=== PATIENT | male | born 1955 | race Caucasian/White ===

== ENCOUNTER 2016-07-27 14:16 | Inpatient (IN) | payer BC, OTHER ==
[~2016-07-27] VITALS: Ht 175.3 cm; Wt 69.7 kg
[2016-07-27] VITALS (7 sets, daily range): BP systolic 90–117; BP diastolic 66–77; PULSE 77–96; RESP 16–18; TEMP 97.9–98.3; O2SAT 96–100
[~2016-07-27 14:16] MED LIST: ALPR0.5T3 PO; AMLO5TAB2 PO; AMOX875T2 PO; CHLO10CA2 PO; CHLO5CAP3 PO; LISI-515 PO; OMEP20TA PO; ULTR50TA5 PO
[2016-07-27] MEDS ORDERED: SODIUM CHLOR 0.9% 1000 ML INJ 1,000 ML IV SCH (14:53)
--- NOTE | 2016-07-27 14:58 | PD ---
HPI Chief Complaint: Abdominal Pain Time Seen by Provider: 14:44 Travel History International Travel<30 days: No Contact w/Intl Traveler<30days: No Traveled to known affect area: No History of Present Illness HPI 61-year-old male complains of abdominal pain with nausea vomiting and diarrhea. Patient states that the symptoms started 5 days ago. Patient states the pain in cramping pain and sharp pain mostly on the left low quadrant of the abdomen with radiation to the mid abdomen. Patient denies any fever chills. Patient states that he has intermittent nausea vomiting diarrhea. Patient denies any blood or mucus in the stool. Patient denies any dysuria or frequency. Patient denies any back pain. Patient has history of recurrent diverticulitis in the past. On a scale of 1-10 the pain is intermittent between 7 and 10. Patient states that he drinks alcohol about 3 times a week. 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 ) Asthma: No Autoimmune Disease: No Anxiety: Yes Depression: No Heart Rhythm Problems: No Cancer: No Cardiovascular Problems: Yes High Cholesterol: No Chemotherapy: No Chest Pain: No Congestive Heart Failure: No COPD: No Cerebrovascular Accident: No Diabetes: No Diminished Hearing: No Diverticulitis: Yes Endocrine: No Gastrointestinal Disorders: No (COLONOSCOPY JANUARY 2014) GERD: Yes Genitourinary: No Headaches: No Hiatal Hernia: No Heparin Induced Thrombocytopen: No Hypertension: Yes Immune Disorder: No Implanted Vascular Access Dvce: Yes Kidney Stones: No Musculoskeletal: Yes Neurologic: Yes Psychiatric: No Reproductive: No Respiratory: No Immunizations Current: Yes Migraines: No Pancreatitis: Yes Renal Failure: No Seizures: Yes (IN PAST R/T ALCOHOL WITHDRAWAL 2013) Sickle Cell Disease: No Sleep Apnea: No Thyroid Disease: No Ulcer: No PNEUMOCCOCAL Vaccine (Year): 2 Past Surgical History Abdominal Surgery: Yes (RECTAL SURGERY FOR RECTUM THROMBOSIS) AICD: No Arteriovenous Shunt: No Body Medical Devices: DISSOLVABLE SCREW IN LEFT ANKLE - placed 2014 Cardiac Surgery: No Ear Surgery: No Endocrine Surgery: No Eye Surgery: No Genitourinary Surgery: Yes (PROSTATE BIOPSY-NEGATIVE) Gynecologic Surgery: No Hysterectomy: No Insulin Pump: No Joint Replacement: Yes (left hip) Neurologic Surgery: No Oral Surgery: No Pacemaker: No Other Surgery: Yes (2 BACK AND ONE NECK SURGERIES) Social History Alcohol Use: Yes (3 times per weeek) Tobacco Use: No Substance Use: Yes (marijuana) Allergies-Medications (Allergen,Severity, Reaction): Coded Allergies: Bactrim (Verified Allergy, Severe, Diarrhea, 07/27/16) Codeine (Verified Allergy, Severe, RASH, 07/27/16) Levaquin (Verified Allergy, Severe, ACHILLES TENDON PROBLEM, 07/27/16) Reported Meds & Prescriptions Reported Meds & Active Scripts Active Reported Chlordiazepoxide (Chlordiazepoxide HCl) 5 Mg Cap 5 Mg PO BID Alprazolam 0.5 Mg Tab 0.5 Mg PO BID Amlodipine (Amlodipine Besylate) 5 Mg Tab 5 Mg PO DAILY Omeprazole 20 Mg Tab 20 Mg PO DAILY Lisinopril 20 Mg Tab 20 Mg PO DAILY Review of Systems General / Constitutional: No: Fever Eyes: No: Visual changes HENT: No: Headaches Cardiovascular: No: Chest Pain or Discomfort Respiratory: No: Shortness of Breath Gastrointestinal: Positive: Nausea, Vomiting, Diarrhea, Abdominal Pain Genitourinary: No: Dysuria Musculoskeletal: No: Pain Skin: No Rash Neurologic: No: Weakness Psychiatric: No: Depression Endocrine: No: Polydipsia Hematologic/Lymphatic: No: Easy Bruising Physical Exam Narrative GENERAL: Well-nourished, well-developed patient. SKIN: Focused skin assessment warm/dry. HEAD: Normocephalic. EYES: No scleral icterus. No injection or drainage. NECK: Supple, trachea midline. No JVD or lymphadenopathy. CARDIOVASCULAR: Regular rate and rhythm without murmurs, gallops, or rubs. RESPIRATORY: Breath sounds equal bilaterally. No accessory muscle use. GASTROINTESTINAL: Abdomen soft, nondistended. Moderate tenderness on palpation of the left low quadrant of the abdomen. No rebound tenderness. No mass. MUSCULOSKELETAL: No cyanosis, or edema. BACK: Nontender without obvious deformity. No CVA tenderness. Neurologic exam normal. Data Data Last Documented VS Vital Signs Date Time Temp Pulse Resp B/P Pulse Ox O2 Delivery O2 Flow Rate FiO2 07/27/16 18:19 77 16 101/67 99 Room Air 07/27/16 14:23 97.9 Orders Complete Blood Count With Diff (07/27/16 14:53) Lipase (07/27/16 14:53) Prothrombin Time / Inr (Pt) (07/27/16 14:53) Act Partial Throm Time (Ptt) (07/27/16 14:53) Urinalysis - C+S If Indicated (07/27/16 14:53) Iv Access Insert/Monitor (07/27/16 14:53) Ecg Monitoring (07/27/16 14:53) Oximetry (07/27/16 14:53) Morphine Inj (Morphine Inj) (07/27/16 15:00) Ondansetron Inj (Zofran Inj) (07/27/16 15:00) Metronidazole 500 Mg Inj (Flagyl 500 Mg (07/27/16 15:00) Pantoprazole Inj (Protonix Inj) (07/27/16 15:00) Sodium Chlor 0.9% 1000 Ml Inj (Ns 1000 M (07/27/16 14:53) Piperacil-Tazo 3.375 Gm Premix (Zosyn 3. (07/27/16 15:00) Comprehensive Metabolic Panel (07/27/16 16:02) Sodium Chlor 0.9% 1000 Ml Inj (Ns 1000 M (07/27/16 18:30) Ct Abd/Pel W/O Iv Contrast (07/27/16 18:27) Labs Laboratory Tests Test 07/27/16 07/27/16 15:00 16:55 White Blood Count 12.1 TH/MM3 Red Blood Count 3.66 MIL/MM3 Hemoglobin 11.1 GM/DL Hematocrit 33.5 % Mean Corpuscular Volume 91.3 FL Mean Corpuscular Hemoglobin 30.3 PG Mean Corpuscular Hemoglobin 33.2 % Concent Red Cell Distribution Width 16.2 % Platelet Count 249 TH/MM3 Mean Platelet Volume 8.3 FL Neutrophils (%) (Auto) 79.7 % Lymphocytes (%) (Auto) 10.8 % Monocytes (%) (Auto) 8.3 % Eosinophils (%) (Auto) 0.7 % Basophils (%) (Auto) 0.5 % Neutrophils # (Auto) 9.6 TH/MM3 Lymphocytes # (Auto) 1.3 TH/MM3 Monocytes # (Auto) 1.0 TH/MM3 Eosinophils # (Auto) 0.1 TH/MM3 Basophils # (Auto) 0.1 TH/MM3 CBC Comment DIFF FINAL Differential Comment Prothrombin Time 10.6 SEC Prothromb Time International 1.0 RATIO Ratio Activated Partial 26.6 SEC Thromboplast Time Sodium Level 130 MEQ/L Potassium Level 4.1 MEQ/L Chloride Level 95 MEQ/L Carbon Dioxide Level 17.6 MEQ/L Anion Gap 17 MEQ/L Blood Urea Nitrogen 53 MG/DL Creatinine 4.90 MG/DL Estimat Glomerular Filtration 12 ML/MIN Rate Random Glucose 117 MG/DL Calcium Level 7.8 MG/DL Total Bilirubin 0.8 MG/DL Aspartate Amino Transf 37 U/L (AST/SGOT) Alanine Aminotransferase 27 U/L (ALT/SGPT) Alkaline Phosphatase 65 U/L Total Protein 7.8 GM/DL Albumin 4.0 GM/DL Lipase 380 U/L Urine Color YELLOW Urine Turbidity HAZY Urine pH 5.5 Urine Specific [place] 1.019 Urine Protein TRACE mg/dL Urine Glucose (UA) NEG mg/dL Urine Ketones TRACE mg/dL Urine Occult Blood NEG Urine Nitrite NEG Urine Bilirubin NEG Urine Leukocyte Esterase NEG Urine WBC 0-2 /hpf Urine Squamous Epithelial 0-5 /hpf Cells Microscopic Urinalysis Comment CULT NOT INDICATED MDM Medical Decision Making Medical Screen Exam Complete: Yes Emergency Medical Condition: Yes Interpretation(s) 1821 PM. CBC WBC 12.1. Hemoglobin 11.1 hematocrit 33.5. 79 neutrophil. Sodium 1:30. BUN 53. Creatinine 4.9. [address] scan abdomen pelvis shows no acute process. Differential Diagnosis Differential diagnosis including acute diverticulitis, UTI, pyelonephritis, nephrolithiasis. Narrative Course 61-year-old male with left low quadrant abdominal pain. History of recurrent diverticulitis. Normal saline solution 1 25 cc an hour. Morphine 2 mg IV. Zofran 4 mg IV. Protonix 40 mg IV. Zosyn 3.375 g IV. Flagyl 500 mg IV. Normal saline solution 2 L IV bolus. Diagnosis Primary Impression: Abdominal pain Qualified Code: R10.30 - Lower abdominal pain Additional Impressions: Acute kidney injury Hyponatremia Dehydration Admitting Information Admitting Physician Requests: Admit Matt Rene MD Jul 27, 2016 14:58
[2016-07-27] MEDS ORDERED: metroNIDAZOLE 500 MG INJ 100 ML IV ONE (15:00)
[2016-07-27] MEDS ORDERED: PIPERACIL-TAZO 3.375 GM PREMIX 50 ML IV ONE (15:00)
[2016-07-27] MEDS ORDERED: PANTOPRAZOLE SODIUM 40 MG VIAL IVP ONE (15:00)
[2016-07-27] MEDS ORDERED: MORPHINE SULFATE 4 MG/ML INJ IV PUSH ONE (15:00)
[2016-07-27] MEDS ORDERED: ONDANSETRON HCL 4 MG/2 ML VIAL IVP ONE (15:00)
[2016-07-27 15:12] LABS: AUTOMATED NEUTROPHIL # 9.6 TH/MM3 (1.8-7.7); BASOPHIL # 0.1 TH/MM3 (0-0.2); BASOPHIL % 0.5 % (0.0-2.0); EOSINOPHIL # 0.1 TH/MM3 (0-0.4); EOSINOPHIL % 0.7 % (0.0-4.0); HEMATOCRIT 33.5 % (39.0-51.0); HEMO FLAGS DIFF FINAL; LYMPH % 10.8 % (9.0-44.0); LYMPHOCYTE # 1.3 TH/MM3 (1.0-4.8); MEAN CELL VOLUME 91.3 FL (80.0-100.0); MEAN CORPUSCULAR HEMOGLOBIN 30.3 PG (27.0-34.0); MEAN CORPUSCULAR HGB CONC 33.2 % (32.0-36.0); MONO % 8.3 % (0.0-8.0); NEUT % 79.7 % (16.0-70.0); PLATELET COUNT 249 TH/MM3 (150-450); RED BLOOD COUNT 3.66 MIL/MM3 (4.50-5.90); RED CELL DISTRIBUTION WIDTH 16.2 % (11.6-17.2); WHITE BLOOD COUNT 12.1 TH/MM3 (4.0-11.0)
[2016-07-27 15:33] LABS: APTT (PATIENT) 26.6 SEC (24.3-30.1); PROTHROMBIN TIME - PATIENT 10.6 SEC (9.8-11.6)
[2016-07-27 17:10] LABS: BLOOD, URINE NEG (NEG); GLUCOSE,URINE NEG (NEG); KETONE, URINE TRACE mg/dL (NEG); NITRITE,URINE NEG (NEG); PH, URINE 5.5 (5.0-8.5)
[2016-07-27 17:26] LABS: URINE COLOR YELLOW (YELLW/STRAW)
[2016-07-27 17:30] LABS: COMMENT (UR) CULT NOT INDICATED; CULTURE IF INDICATED CULT NOT INDICATED; SQUAMOUS EPITHELIAL CELL URINE 0-5 /hpf (0-5); WBC, URINE 0-2 /hpf (0-5)
[2016-07-27 18:02] LABS: CHLORIDE 95 MEQ/L (98-107); POTASSIUM 4.1 MEQ/L (3.5-5.1); SODIUM (NA) 130 MEQ/L (136-145)
[2016-07-27 18:05] LABS: ANION GAP 17 MEQ/L (5-15); BICARBONATE 17.6 MEQ/L (21.0-32.0)
[2016-07-27 18:06] LABS: BLOOD UREA NITROGEN 53 MG/DL (7-18)
[2016-07-27 18:08] LABS: ALT (GPT) 27 U/L (12-78); AST (GOT) 37 U/L (15-37)
[2016-07-27 18:09] LABS: GLOMERULAR FILTRATION RATE 12 ML/MIN (>89)
[2016-07-27 18:10] LABS: TOTAL BILIRUBIN ADULT 0.8 MG/DL (0.2-1.0)
[2016-07-27 18:11] LABS: ALKALINE PHOSPHATASE 65 U/L (45-117)
[2016-07-27] MEDS ORDERED: SODIUM CHLOR 0.9% 1000 ML INJ 1,000 ML IV ONE ×2 (18:30→19:15)
--- NOTE | 2016-07-27 18:57 | RADHPO ---
EXAM DATE/TIME: 07/27/2016 18:31 [facility] COMPARISON: CT ABDOMEN & PELVIS W CONTRAST, April 17, 2016, 8:54. INDICATIONS : Lower pelvic pain, history of diverticulitis. ORAL CONTRAST: No oral contrast ingested. RADIATION DOSE: 8.54 CTDIvol (mGy) MEDICAL HISTORY : Cardiovascular disease. Seizures. Pancreatitis. SURGICAL HISTORY : None. ENCOUNTER: Initial ACUITY: 2 days PAIN SCALE: 4/10 LOCATION: [facility] TECHNIQUE: Volumetric scanning of the abdomen and pelvis was performed. Using automated exposure control and adjustment of the mA and/or kV according to patient size, radiation dose was kept as low as reasonably achievable to obtain optimal diagnostic quality images. FINDINGS: CT Abdomen: The liver, spleen, pancreas, right kidney, adrenals are unremarkable. There is no evidenc e for any appreciable pathological adenopathy, free fluid, or bowel obstruction. There are old healed rib fractures in the left chest in addition to old fractures of right L2 and L3 transverse processes . Slight degree of somewhat linear irregular opacity is seen in the left lung base mostly consistent with scarring. Approximate 1.4 cm simple cyst is again seen in the left kidney and not changed. CT pelvis: There is no evidence for mass, abscess formation, or any significant adenopathy within the pelvis. The prostate gland is inhomogeneous and measures 3.8 x 4.9 cm in AP and transverse diameters and nonspecific. There are scattered diverticuli mainly in the sigmoid colon without definite signs of diverticulitis. CONCLUSION: Colonic diverticuli without evidence for diverticulitis. Lakeisha Small MD on July 27, 2016 at 18:50 Board Certified Radiologist. This report was verified electronically.
[2016-07-27] MEDS ORDERED: NALOXONE HCL 0.4 MG/ML AMP IV PRN (19:45)
[2016-07-27] MEDS ORDERED: SODIUM CHLORIDE 0.9% FLUSH 10 ML FLUSH IV FLUSH PRN (19:45)
[2016-07-27] MEDS: HEPARIN SODIUM - SQ 10,000 UNITS/ML VIAL SQ SCH (20:41)
[2016-07-27] MEDS: SODIUM CHLORIDE 0.9% FLUSH 10 ML FLUSH IV FLUSH SCH (21:47)
[2016-07-28] VITALS (8 sets, daily range): BP systolic 119–158; BP diastolic 73–100; PULSE 80–87; RESP 16–20; TEMP 96.8–98.8; O2SAT 96–99
[2016-07-28] MEDS: HEPARIN SODIUM - SQ 10,000 UNITS/ML VIAL SQ SCH ×3 (04:41→21:16)
[2016-07-28 07:34] LABS: AUTOMATED NEUTROPHIL # 5.7 TH/MM3 (1.8-7.7); BASOPHIL % 0.5 % (0.0-2.0); EOSINOPHIL # 0.2 TH/MM3 (0-0.4); EOSINOPHIL % 2.5 % (0.0-4.0); HEMATOCRIT 29.3 % (39.0-51.0); LYMPH % 21.1 % (9.0-44.0); LYMPHOCYTE # 1.8 TH/MM3 (1.0-4.8); MEAN CELL VOLUME 92.9 FL (80.0-100.0); MEAN CORPUSCULAR HGB CONC 33.4 % (32.0-36.0); MONO % 11.4 % (0.0-8.0); NEUT % 64.5 % (16.0-70.0); PLATELET COUNT 190 TH/MM3 (150-450); RED BLOOD COUNT 3.16 MIL/MM3 (4.50-5.90); RED CELL DISTRIBUTION WIDTH 16.5 % (11.6-17.2); WHITE BLOOD COUNT 8.7 TH/MM3 (4.0-11.0)
[2016-07-28 07:37] LABS: HEMO FLAGS DIFF FINAL
[2016-07-28 07:59] LABS: BICARBONATE 19.4 MEQ/L (21.0-32.0); POTASSIUM 3.8 MEQ/L (3.5-5.1)
[2016-07-28 08:32] LABS: CALCIUM-PROTEIN CORRECTED 7.6 MG/DL (8.5-10.1)
[2016-07-28] MEDS: SODIUM CHLORIDE 0.9% FLUSH 10 ML FLUSH IV FLUSH SCH ×2 (09:00→21:00)
[2016-07-28] MEDS ORDERED: LORazepam 2 MG/ML VIAL IV PUSH PRN ×4 (09:30)
[2016-07-28] MEDS ORDERED: LORazepam 1 MG TAB PO PRN (09:30)
[2016-07-28] MEDS ORDERED: FLUMAZENIL 0.5 MG/5 ML VIAL IV PUSH PRN (09:30)
[2016-07-28] MEDS ORDERED: LORazepam 2 MG TAB PO PRN (09:30)
--- NOTE | 2016-07-28 12:55 | HHI.HP ---
[facility]ician Yamil Collado DO Admission Diagnosis abdominal pain. Acute kidney injury. Dehydration. Diagnoses: (1) Acute renal failure Diagnosis: Principal (2) Anemia (3) Uncontrolled hypertension (4) Diarrhea (5) Generalized weakness Travel History International Travel<30 Days: No Contact w/Intl Traveler <30 Da: No Traveled to Known Affected Are: No History of Present Illness This is a pleasant 61 year-old male with past medical history of diverticulitis, recurrent C. difficile colitis last episode being in September 2015, intermittent diarrhea, history of alcohol abuse with alcohol withdrawal seizures who presents to the ER complaining of generalized weakness and intermittent diarrhea over the past 6 days. The symptoms started 6 days ago with nausea, lower abdominal cramping and several episodes of diarrhea. Symptoms are moderate. No palliative or provocative factors. The following day he felt fine however the diarrhea returned the next day and has continued intermittently. He was trying to keep up with his fluids but felt that he was getting weaker and more dehydrated. He states his last alcoholic beverage was last Wednesday. He states that he has cut back on drinking a lot. He states he has not had any vomiting. He tolerated regular diet this morning. The patient states that he only has left lower abdominal pain when he pushes on that area. In the emergency department he was found to be in acute renal failure with creatinine of 4.9 and BUN of 53. Potassium was within normal limits. The patient has not had another bowel movement since being admitted to the hospital. Renal indices have improved this morning on IV fluid hydration. Abdominal CT scan was negative for diverticulitis. Review of Systems Constitutional: DENIES: Fever, Chills Eyes: DENIES: Diplopia, Double Vision Ears, nose, mouth, throat: DENIES: Throat pain, Hoarseness Respiratory: DENIES: Cough, Shortness of breath Cardiovascular: DENIES: Chest pain, Dyspnea on Exertion Gastrointestinal: COMPLAINS OF: Abdominal pain, Diarrhea, Nausea, DENIES: Black stools, Bloody stools, Vomiting Musculoskeletal: DENIES: Joint pain, Muscle aches Integumentary: DENIES: Rash Hematologic/lymphatic: DENIES: Lymphadenopathy Neurologic: DENIES: Abnormal gait, Headache Psychiatric: DENIES: Anxiety, Confusion Past Family Social History Past Medical History Previous history of acute kidney injury secondary to dehydration Hypertension. diverticulitis. History of DVTs. History of alcohol abuse History of alcoholic withdrawal seizures. History of Achilles tendon rupture. Past Surgical History achilles tendon repair on the left left hip arthroplasty Reported Medications Allergies Coded Allergies Type Severity Reaction Last Updated Verified Bactrim Allergy Severe Diarrhea 07/27/16 Yes Codeine Allergy Severe RASH 07/27/16 Yes Levaquin Allergy Severe ACHILLES TENDON PROBLEM 07/27/16 Yes Active Scripts Medications Dose Route/Sig Days Date Category Chlordiazepoxide (Chlordiazepoxide HCl) 5 Mg Cap 5 Mg PO BID 04/17/16 Reported Alprazolam 0.5 Mg Tab 0.5 Mg PO BID 03/13/16 Reported Amlodipine (Amlodipine Besylate) 5 Mg Tab 5 Mg PO DAILY 03/13/16 Reported Omeprazole 20 Mg Tab 20 Mg PO DAILY 03/13/16 Reported Lisinopril 20 Mg Tab 20 Mg PO DAILY 03/13/16 Reported Allergies: Coded Allergies: Bactrim (Verified Allergy, Severe, Diarrhea, 07/27/16) Codeine (Verified Allergy, Severe, RASH, 07/27/16) Levaquin (Verified Allergy, Severe, ACHILLES TENDON PROBLEM, 07/27/16) Family History Mother had CHF and dementia Social History As per history of present illness. Also endorses occasional marijuana use. Physical Exam Vital Signs Vital Signs Date Time Temp Pulse Resp B/P Pulse Ox O2 Delivery O2 Flow Rate FiO2 07/28/16 07:18 98.2 07/28/16 06:30 98.6 122/73 96 Room Air 07/28/16 04:00 98.5 87 16 119/73 97 Room Air 07/28/16 00:00 98.8 121/78 96 Room Air 07/27/16 20:20 80 111/77 96 Room Air 07/27/16 19:50 98.1 82 16 117/76 100 Room Air 07/27/16 19:50 98.3 82 117/76 100 Room Air 07/27/16 18:19 77 16 101/67 99 Room Air 07/27/16 17:24 82 16 91/66 97 Room Air 07/27/16 16:00 82 16 90/66 97 Room Air 07/27/16 15:19 16 07/27/16 15:15 16 100 Room Air 07/27/16 14:23 97.9 96 18 99/74 100 Physical Exam GENERAL: Well-nourished, well-developed pleasant male patient. SKIN: Warm and dry. HEAD: Normocephalic. EYES: No scleral icterus. No injection or drainage. NECK: Supple, trachea midline. No JVD or lymphadenopathy. CARDIOVASCULAR: Regular rate and rhythm without murmurs, gallops, or rubs. RESPIRATORY: Breath sounds equal bilaterally. No accessory muscle use. GASTROINTESTINAL: Bowel sounds normoactive. Abdomen soft, non-tender, nondistended. EXTREMITIES: No cyanosis, or edema. NEUROLOGICAL: Awake, alert, and oriented x 3. Non-focal. Fine tremors of hands. Laboratory Laboratory Tests Test 07/27/16 07/27/16 07/28/16 15:00 16:55 07:17 White Blood Count 12.1 8.7 Red Blood Count 3.66 3.16 Hemoglobin 11.1 9.8 Hematocrit 33.5 29.3 Mean Corpuscular Volume 91.3 92.9 Mean Corpuscular Hemoglobin 30.3 31.0 Mean Corpuscular Hemoglobin 33.2 33.4 Concent Red Cell Distribution Width 16.2 16.5 Platelet Count 249 190 Mean Platelet Volume 8.3 8.4 Neutrophils (%) (Auto) 79.7 64.5 Lymphocytes (%) (Auto) 10.8 21.1 Monocytes (%) (Auto) 8.3 11.4 Eosinophils (%) (Auto) 0.7 2.5 Basophils (%) (Auto) 0.5 0.5 Neutrophils # (Auto) 9.6 5.7 Lymphocytes # (Auto) 1.3 1.8 Monocytes # (Auto) 1.0 1.0 Eosinophils # (Auto) 0.1 0.2 Basophils # (Auto) 0.1 0.0 CBC Comment DIFF FINAL DIFF FINAL Differential Comment Prothrombin Time 10.6 Prothromb Time International 1.0 Ratio Activated Partial 26.6 Thromboplast Time Sodium Level 130 141 Potassium Level 4.1 3.8 Chloride Level 95 109 Carbon Dioxide Level 17.6 19.4 Anion Gap 17 13 Blood Urea Nitrogen 53 47 Creatinine 4.90 3.10 Estimat Glomerular Filtration 12 20 Rate Random Glucose 117 87 Calcium Level 7.8 7.3 Total Bilirubin 0.8 Aspartate Amino Transf 37 (AST/SGOT) Alanine Aminotransferase 27 (ALT/SGPT) Alkaline Phosphatase 65 Total Protein 7.8 6.6 Albumin 4.0 Lipase 380 Urine Color YELLOW Urine Turbidity HAZY Urine pH 5.5 Urine Specific [place] 1.019 Urine Protein TRACE Urine Glucose (UA) NEG Urine Ketones TRACE Urine Occult Blood NEG Urine Nitrite NEG Urine Bilirubin NEG Urine Leukocyte Esterase NEG Urine WBC 0-2 Urine Squamous Epithelial 0-5 Cells Microscopic Urinalysis Comment CULT NOT INDICATED Protein Corrected Calcium 7.6 Result Diagram: 07/28/1671607/28/16716 Imaging Last Impressions Abdomen/Pelvis CT 07/27/161826 Signed Impressions: Service Date/Time: Wednesday, July 27, 2016 18:31 - CONCLUSION: Colonic diverticuli without evidence for diverticulitis. Lakeisha Small MD Assessment and Plan Problem List: (1) Hypocalcemia ICD Code: E83.51 Status: Resolved (2) Metabolic acidosis ICD Code: E87.2 Status: Acute (3) ATN (acute tubular necrosis) ICD Code: N17.0 Status: Acute Assessment and Plan -Acute renal failure presumably prerenal in etiology from severe dehydration due to diarrhea. Likely has progressed to ATN. Diarrhea has now resolved. Renal indices improving with IV fluids. Will continue. Repeat BMP in the morning. Urine output is good. -Diarrhea. Resolved. Appears to be an intermittent problem for the patient. He did have a problem with recurrent C. difficile in September 2015. He has been admitted twice since then for diarrhea however C. difficile was negative at that time. Patient currently is asking for narcotics for abdominal pain however he states his belly only hurts when he pushes on it. I discouraged him from using opioids for abdominal pain especially given the negative CT. We will observe and the nurses to inform me if he has another episode of diarrhea. -Alcoholism. The patient states that his last drink was last Wednesday and he states he has cut back. He does have a fine tremor of his hands which I have noted during previous admissions. We will continue Librium 5 mg twice a day and place him on the alcohol withdrawal protocol. Liver enzymes are not elevated. -Acute metabolic acidosis secondary to the renal failure, improving. -Chronic anemia. Baseline appears to be around 9-10. Has dropped one point overnight likely secondary to the rehydration. Monitor for any bleeding. DVT prophylaxis with SCDs. -Hypertension. We'll resume Norvasc but hold his PHOEBE inhibitor. -Hypocalcemia. Start calcium carbonate 500 mg by mouth twice a day and repeat BMP in the morning. -DVT prophylaxis with SCDs. Lyn Artis MD Jul 28, 2016 12:55
[2016-07-28] MEDS ORDERED: amLODIPine BESYLATE 5 MG TAB PO SCH (13:00)
[2016-07-28] MEDS ORDERED: PANTOPRAZOLE SOD 20 MG DELAYED RELEASE TAB PO SCH (13:00)
[2016-07-28] MEDS ORDERED: ENALAPRILAT 1.25 MG/ML VIAL IV PUSH PRN (13:45)
[2016-07-28] MEDS: CALCIUM CARBONATE 500 MG CHEWABLE TAB CHEW SCH ×2 (14:38→21:14)
[2016-07-28] MEDS: SODIUM CHLOR 0.9% 1000 ML INJ 1,000 ML IV SCH ×2 (14:44→21:18)
[2016-07-28] MEDS ORDERED: ACETAMINOPHEN 325 MG TAB PO PRN (23:15)
== END 2016-07-28 23:49 | disposition left against medical advice (07) | DRG 683 ==
LOC: PHED 14:16 → PHEDA 19:36 → PHEDH 23:36 → PH3B 07-28 08:39
PROVIDERS: ADMIT Family Medicine; ATTEND Family Medicine
DX: N17.0 Acute kidney failure with tubular necrosis (principal); E87.1 Hypo-osmolality and hyponatremia; E87.2 Acidosis; I10 Essential (primary) hypertension; D64.9 Anemia, unspecified; R19.7 Diarrhea, unspecified; E83.51 Hypocalcemia; E86.0 Dehydration; K21.9 Gastro-esophageal reflux disease without esophagitis; F10.20 Alcohol dependence, uncomplicated; F12.90 Cannabis use, unspecified, uncomplicated; Z86.718 Personal history of other venous thrombosis and embolism; Z96.642 Presence of left artificial hip joint
CPT/HCPCS: 74176; 80048; 80053; 81001; 83690; 84155; 85025; 85610; 85730; 96361; 96365; 96367; 96375; C9113; J1644; J2060; J2270; J2405; J2543; J7030

== ENCOUNTER 2016-08-14 09:41 | Inpatient (IN) | payer BC ==
[~2016-08-14] VITALS: Ht 175.3 cm; Wt 71.4 kg
[~2016-08-14 09:41] MED LIST changes: -AMOX875T2 PO; -CHLO10CA2 PO; -CHLO5CAP3 PO; -ULTR50TA5 PO
[2016-08-14 09:46] VITALS: BP 113/77; PULSE 107; RESP 16; TEMP 98.4; O2SAT 100
[2016-08-14] MEDS ORDERED: SODIUM CHLOR 0.9% 1000 ML INJ 1,000 ML IV SCH (10:05)
--- NOTE | 2016-08-14 10:08 | PD ---
HPI Chief Complaint: GI Complaint Time Seen by Provider: 09:58 Travel History International Travel<30 days: No Contact w/Intl Traveler<30days: No Traveled to known affect area: No History of Present Illness HPI 61yo M with PMH of diverticulitis, alcohol abuse, HTN presents to the ED with c/ o NBNB vomiting and nonbloody diarrhea since yesterday. Pt also with generalized abdominal discomfort. Denies any fever, chest pain, sob, urinary complaints. Pt was here 07/28/16 for dehydration and SHAVONNE. 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 ) Asthma: No Autoimmune Disease: No Anxiety: Yes Depression: No Heart Rhythm Problems: No Cancer: No Cardiovascular Problems: Yes (HTN) High Cholesterol: No Chemotherapy: No Chest Pain: No Congestive Heart Failure: No COPD: No Cerebrovascular Accident: No Diabetes: No Diminished Hearing: No Diverticulitis: Yes Endocrine: No Gastrointestinal Disorders: No (COLONOSCOPY JANUARY 2014) GERD: Yes Genitourinary: No Headaches: No Hiatal Hernia: No Heparin Induced Thrombocytopen: No Hypertension: Yes (controlled on meds) Immune Disorder: No Implanted Vascular Access Dvce: Yes Kidney Stones: No Musculoskeletal: Yes Neurologic: Yes Psychiatric: No Reproductive: No Respiratory: No Immunizations Current: Yes Migraines: No Pancreatitis: Yes Renal Failure: No Seizures: Yes (IN PAST R/T ALCOHOL WITHDRAWAL 2013) Sickle Cell Disease: No Sleep Apnea: No Thyroid Disease: No Ulcer: No Influenza Vaccination: Yes PNEUMOCCOCAL Vaccine (Year): 2 Past Surgical History Abdominal Surgery: Yes (RECTAL SURGERY FOR RECTUM THROMBOSIS) AICD: No Arteriovenous Shunt: No Body Medical Devices: DISSOLVABLE SCREW IN LEFT ANKLE - placed 2014 Cardiac Surgery: No Ear Surgery: No Endocrine Surgery: No Eye Surgery: No Genitourinary Surgery: Yes (PROSTATE BIOPSY-NEGATIVE) Gynecologic Surgery: No Hysterectomy: No Insulin Pump: No Joint Replacement: Yes (left hip) Neurologic Surgery: No Oral Surgery: No Pacemaker: No Other Surgery: Yes (2 BACK AND ONE NECK SURGERIES) Social History Alcohol Use: Yes (3 TO 4 TIMES PER DAY) Tobacco Use: No Substance Use: Yes (marijuana) Allergies-Medications (Allergen,Severity, Reaction): Coded Allergies: Bactrim (Verified Allergy, Severe, Diarrhea, 08/14/16) Codeine (Verified Allergy, Severe, RASH, 08/14/16) Levaquin (Verified Allergy, Severe, ACHILLES TENDON PROBLEM, 08/14/16) Reported Meds & Prescriptions Reported Meds & Active Scripts Active Reported Alprazolam 0.5 Mg Tab 0.5 Mg PO BID Amlodipine (Amlodipine Besylate) 5 Mg Tab 5 Mg PO DAILY Omeprazole 20 Mg Tab 20 Mg PO DAILY Lisinopril 20 Mg Tab 20 Mg PO DAILY Review of Systems Except as stated in HPI: all other systems reviewed are Neg Physical Exam Narrative GENERAL: 61yo M not in distress. SKIN: Focused skin assessment warm/dry. HEAD: Atraumatic. Normocephalic. CARDIOVASCULAR: Regular rate and rhythm. No murmur appreciated. RESPIRATORY: No accessory muscle use. Clear to auscultation. Breath sounds equal bilaterally. GASTROINTESTINAL: Abdomen soft, mild ttp diffusely. No rebound tenderness or guarding. MUSCULOSKELETAL: No obvious deformities. No clubbing. No cyanosis. No edema. NEUROLOGICAL: Awake and alert. No obvious cranial nerve deficits. Motor grossly within normal limits. Normal speech. PSYCHIATRIC: Appropriate mood and affect; insight and judgment normal. Data Data Last Documented VS Vital Signs Date Time Temp Pulse Resp B/P Pulse Ox O2 Delivery O2 Flow Rate FiO2 08/14/16 11:45 90 16 122/90 98 Room Air 08/14/16 09:46 98.4 Orders Complete Blood Count With Diff (08/14/16 10:05) Comprehensive Metabolic Panel (08/14/16 10:05) Lipase (08/14/16 10:05) Prothrombin Time / Inr (Pt) (08/14/16 10:05) Act Partial Throm Time (Ptt) (08/14/16 10:05) Urinalysis - C+S If Indicated (08/14/16 10:05) Iv Access Insert/Monitor (08/14/16 10:05) Ecg Monitoring (08/14/16 10:05) Oximetry (08/14/16 10:05) Ondansetron Inj (Zofran Inj) (08/14/16 10:15) Sodium Chlor 0.9% 1000 Ml Inj (Ns 1000 M (08/14/16 10:05) Sodium Chloride 0.9% Flush (Ns Flush) (08/14/16 10:15) Ct Abd/Pel W/O Iv Contrast (08/14/16 ) Ketorolac Inj (Toradol Inj) (08/14/16 12:15) Morphine Inj (Morphine Inj) (08/14/16 12:30) Piperacil-Tazo 2.25 Gm Premix (Zosyn 2.2 (08/14/16 12:30) Admit Order (Ed Use Only) (08/14/16 12:31) Labs Laboratory Tests Test 08/14/16 08/14/16 10:15 11:40 White Blood Count 13.0 TH/MM3 Red Blood Count 4.20 MIL/MM3 Hemoglobin 12.7 GM/DL Hematocrit 38.6 % Mean Corpuscular Volume 91.8 FL Mean Corpuscular Hemoglobin 30.3 PG Mean Corpuscular Hemoglobin 33.0 % Concent Red Cell Distribution Width 16.6 % Platelet Count 325 TH/MM3 Mean Platelet Volume 8.5 FL Neutrophils (%) (Auto) 76.1 % Lymphocytes (%) (Auto) 14.7 % Monocytes (%) (Auto) 8.1 % Eosinophils (%) (Auto) 0.6 % Basophils (%) (Auto) 0.5 % Neutrophils # (Auto) 9.8 TH/MM3 Lymphocytes # (Auto) 1.9 TH/MM3 Monocytes # (Auto) 1.1 TH/MM3 Eosinophils # (Auto) 0.1 TH/MM3 Basophils # (Auto) 0.1 TH/MM3 CBC Comment DIFF FINAL Differential Comment Prothrombin Time 10.8 SEC Prothromb Time International 1.0 RATIO Ratio Activated Partial 26.8 SEC Thromboplast Time Sodium Level 136 MEQ/L Potassium Level 4.2 MEQ/L Chloride Level 101 MEQ/L Carbon Dioxide Level 18.4 MEQ/L Anion Gap 17 MEQ/L Blood Urea Nitrogen 42 MG/DL Creatinine 3.80 MG/DL Estimat Glomerular Filtration 16 ML/MIN Rate Random Glucose 111 MG/DL Calcium Level 9.9 MG/DL Total Bilirubin 0.7 MG/DL Aspartate Amino Transf 24 U/L (AST/SGOT) Alanine Aminotransferase 20 U/L (ALT/SGPT) Alkaline Phosphatase 68 U/L Total Protein 9.0 GM/DL Albumin 4.5 GM/DL Lipase 278 U/L Urine Collection Type CLEAN CATCH Urine Color MOHIT Urine Turbidity CLEAR Urine pH 5.0 Urine Specific [place] 1.021 Urine Protein 30 mg/dL Urine Glucose (UA) NEG mg/dL Urine Ketones TRACE mg/dL Urine Occult Blood NEG Urine Nitrite NEG Urine Bilirubin MOD Urine Leukocyte Esterase NEG Urine RBC 0-3 /hpf Urine WBC 0-2 /hpf Urine Squamous Epithelial 0-5 /hpf Cells Urine Renal Epithelial Cells 0-5 /hpf Urine Hyaline Casts 50-100 /lpf Urine Fine Granular Casts 10-15 /lpf Microscopic Urinalysis Comment CULT NOT INDICATED Urine Collection Time 11:40 MDM Medical Decision Making Medical Screen Exam Complete: Yes Emergency Medical Condition: Yes Differential Diagnosis Diverticulitis vs. gastroenteritis vs. pancreatitis vs. colitis Narrative Course 61yo M with alcohol abuse and diverticulitis here with vomiting and diarrhea. Pt was admitted earlier this month for acute kidney injury. Pt states that his kidney function went back to normal when he followed up with his primary care physician after that. Labs reviewed, leukocytosis at 13.0. Lactic acid 1.4. Creatinine is elevated at 3.80. It was elevated last time too but pt states it went back to normal so this is acute. UA showed hyaline casts, pt is dehydrated. Pt given NS IVF x1 and still mildly tachycardic at 90s-100bpm. Pt empirically given zosyn for sepsis. Pt given morphine for abdominal pain. CT a /p showed scattered colonic diverticuli. Discussed with Dr. Handy and accepted to his service. Diagnosis Primary Impression: Dehydration Additional Impression: SHAVONNE (acute kidney injury) Admitting Information Admitting Physician Requests: it Halle Gandhi DO Aug 14, 2016 10:08
[2016-08-14] MEDS ORDERED: ONDANSETRON HCL 4 MG/2 ML VIAL IVP ONE (10:15)
[2016-08-14] MEDS ORDERED: SODIUM CHLORIDE 0.9% FLUSH 10 ML FLUSH IV FLUSH PRN (10:15)
[2016-08-14 10:32] LABS: AUTOMATED NEUTROPHIL # 9.8 TH/MM3 (1.8-7.7); BASOPHIL # 0.1 TH/MM3 (0-0.2); BASOPHIL % 0.5 % (0.0-2.0); EOSINOPHIL # 0.1 TH/MM3 (0-0.4); EOSINOPHIL % 0.6 % (0.0-4.0); HEMATOCRIT 38.6 % (39.0-51.0); HEMO FLAGS DIFF FINAL; LYMPH % 14.7 % (9.0-44.0); LYMPHOCYTE # 1.9 TH/MM3 (1.0-4.8); MEAN CELL VOLUME 91.8 FL (80.0-100.0); MEAN CORPUSCULAR HEMOGLOBIN 30.3 PG (27.0-34.0); MONO % 8.1 % (0.0-8.0); NEUT % 76.1 % (16.0-70.0); PLATELET COUNT 325 TH/MM3 (150-450); RED CELL DISTRIBUTION WIDTH 16.6 % (11.6-17.2)
[2016-08-14 10:34] VITALS: RESP 16; O2SAT 98
[2016-08-14 10:39] LABS: CHLORIDE 101 MEQ/L (98-107); POTASSIUM 4.2 MEQ/L (3.5-5.1); SODIUM (NA) 136 MEQ/L (136-145)
[2016-08-14 10:43] LABS: ANION GAP 17 MEQ/L (5-15); BICARBONATE 18.4 MEQ/L (21.0-32.0)
[2016-08-14 10:44] LABS: APTT (PATIENT) 26.8 SEC (24.3-30.1); BLOOD UREA NITROGEN 42 MG/DL (7-18); PROTHROMBIN TIME - PATIENT 10.8 SEC (9.8-11.6)
[2016-08-14 10:46] LABS: ALT (GPT) 20 U/L (12-78); AST (GOT) 24 U/L (15-37); GLOMERULAR FILTRATION RATE 16 ML/MIN (>89)
[2016-08-14 10:48] LABS: TOTAL BILIRUBIN ADULT 0.7 MG/DL (0.2-1.0)
[2016-08-14 10:49] LABS: ALKALINE PHOSPHATASE 68 U/L (45-117)
--- NOTE | 2016-08-14 11:29 | RADHPO ---
EXAM DATE/TIME: 08/14/2016 11:05 [facility] COMPARISON: CT ABDOMEN & PELVIS W/O CONTRAST, July 27, 2016, 18:31. INDICATIONS : Diffuse abdominal pain. Nausea, vomiting and diarrhea. ORAL CONTRAST: No oral contrast ingested. RADIATION DOSE: 8.33 CTDIvol (mGy) MEDICAL HISTORY : Diverticulitis. Pancreatitis. Gastroesophageal reflux disease.Hypertension. SURGICAL HISTORY : Rectal surgery for thrombosis. ENCOUNTER: Initial ACUITY: 1 day PAIN SCALE: 8/10 LOCATION: Diffuse abdomen. TECHNIQUE: Volumetric scanning of the abdomen and pelvis was performed. Using automated exposure control and ad justment of the mA and/or kV according to patient size, radiation dose was kept as low as reasonably achievable to obtain optimal diagnostic quality images. FINDINGS: CT Abdomen: The liver, spleen, pancreas, right kidney, adrenals are unremarkable. There is no evidenc e for any appreciable pathological adenopathy, free fluid, or bowel obstruction. There are old heale d rib fractures in the left chest. There is also old healed fracture of L2 transverse process on the right. There is no evidence for any stones in the kidneys or the course of the ureters on either side . There is no hydronephrosis. Small almost 1.4 cm left renal cyst has not changed. CT pelvis: There is no evidence for mass, abscess formation, or any significant adenopathy within the pelvis. The prostate gland is inhomogeneous and measures 3.9 x 5.1 cm in AP and transverse diameters and nonspecific. CONCLUSION: Scattered colonic diverticuli, otherwise unremarkable. Lakeisha Small MD on August 14, 2016 at 11:21 Board Certified Radiologist. This report was verified electronically.
[2016-08-14 11:45] VITALS: BP 122/90; PULSE 90; RESP 16; O2SAT 98
[2016-08-14 12:05] LABS: BLOOD, URINE NEG (NEG); GLUCOSE,URINE NEG (NEG); KETONE, URINE TRACE mg/dL (NEG); NITRITE,URINE NEG (NEG)
[2016-08-14] MEDS ORDERED: KETOROLAC TROMETHAMINE 30 MG/ML (IVP) VIAL IV PUSH ONE (12:15)
[2016-08-14 12:17] LABS: METHOD OF COLLECTION CLEAN CATCH; URINE COLOR AMBER (YELLW/STRAW)
[2016-08-14 12:18] LABS: HYALINE CAST, URINE 50-100 /lpf (RARE); RBC, URINE 0-3 /hpf (0-3); SQUAMOUS EPITHELIAL CELL URINE 0-5 /hpf (0-5); WBC, URINE 0-2 /hpf (0-5)
[2016-08-14 12:19] LABS: COMMENT (UR) CULT NOT INDICATED; CULTURE IF INDICATED CULT NOT INDICATED; RENAL EPITHELIAL CELLS 0-5 /hpf
[2016-08-14] MEDS ORDERED: PIPERACIL-TAZO 2.25 GM PREMIX 50 ML IV ONE (12:30)
[2016-08-14] MEDS ORDERED: MORPHINE SULFATE 4 MG/ML INJ IV PUSH ONE (12:30)
[2016-08-14] MEDS ORDERED: ACETAMINOPHEN 325 MG TAB PO PRN (12:45)
[2016-08-14] MEDS ORDERED: NALOXONE HCL 0.4 MG/ML AMP IV PRN (12:45)
[2016-08-14] MEDS: NS + KCL 20 MEQ INJ 1,000 ML IV SCH ×2 (13:05→21:16)
[2016-08-14 13:30] VITALS: BP 119/82; PULSE 80; RESP 18; O2SAT 98
--- NOTE | 2016-08-14 13:53 | HHI.HP ---
cc: Yamil Collado DO [facility] Service [place] [facility] Primary Care Physician Yamil Collado DO Admission Diagnosis Sepsis, SHAVONNE Diagnoses: (1) Dehydration (2) Acute renal failure (3) Diarrhea (4) Hypertension (5) Leukocytosis (6) SIRS (systemic inflammatory response syndrome) Chief Complaint: Diarrhea Travel History International Travel<30 Days: No Contact w/Intl Traveler <30 Da: No Traveled to Known Affected Are: No Sepsis Criteria SIRS Criteria (2 or more): Heart rate over 90, WBC > 07258, < 4000 or > 10% bands Criteria Outcome: Meets SIRS criteria History of Present Illness The patient is a 61-year-old male who presented to the emergency department with a one-day history of diarrhea. He states that the diarrhea started yesterday and worsened throughout the night. He was having loose bowel movements every hour. Denies fever, chills, night sweats. Abdominal pain improved with morphine. No nausea today. Did have one episode of vomiting last night. Denies sick contacts. Prior to today, he most recently received antibiotics on 07/27/16 (1 dose of Zosyn). Diarrhea has improved this afternoon. Review of Systems Constitutional: DENIES: Fever, Chills, Night Sweats Eyes: DENIES: Blurred vision, Vision loss Ears, nose, mouth, throat: DENIES: Hearing loss Respiratory: DENIES: Cough, Wheezing, Sputum production, Shortness of breath Cardiovascular: DENIES: Chest pain, Palpitations, Dyspnea on Exertion, Lower Extremity Edema Gastrointestinal: COMPLAINS OF: Diarrhea, Vomiting, DENIES: Abdominal pain, Constipation, Nausea Genitourinary: DENIES: Urinary frequency, Urinary incontinence, Urgency, Hematuria, Dysuria, Nocturia Musculoskeletal: DENIES: Joint pain, Muscle aches Integumentary: DENIES: Pruritus, Rash Hematologic/lymphatic: DENIES: Bruising Neurologic: DENIES: Headache Past Family Social History Past Medical History Arthritis Hypertension Anxiety Diverticulosis GERD History of alcohol withdrawal with seizures Past Surgical History Rectal surgery for thrombosis Left ankle Achilles tendon surgery Prostate biopsy Left hip replacement Back surgery 2 Neck surgery Reported Medications Alprazolam 0.5 Mg Tab 0.5 Mg PO BID Amlodipine (Amlodipine Besylate) 5 Mg Tab 5 Mg PO DAILY Omeprazole 20 Mg Tab 20 Mg PO DAILY Lisinopril 20 Mg Tab 20 Mg PO DAILY Allergies: Coded Allergies: Bactrim (Verified Allergy, Severe, Diarrhea, 08/14/16) Codeine (Verified Allergy, Severe, RASH, 08/14/16) Levaquin (Verified Allergy, Severe, ACHILLES TENDON PROBLEM, 08/14/16) Family History Patient does not know his father's history. Mother had congestive heart failure , dementia. Social History Drinks 3-4 alcoholic beverages per day. Occasional marijuana use. Denies tobacco use. Physical Exam Vital Signs Vital Signs Date Time Temp Pulse Resp B/P Pulse Ox O2 Delivery O2 Flow Rate FiO2 08/14/16 13:30 80 18 119/82 98 Room Air 08/14/16 12:40 1 08/14/16 11:45 90 16 122/90 98 Room Air 08/14/16 10:34 16 98 Room Air 08/14/16 09:46 98.4 107 16 113/77 100 Physical Exam GENERAL: Well-nourished, well-developed [] in no acute distress. HEENT: Normocephalic, atraumatic. Pupils equal, round and reactive. Extraocular movements intact. No scleral icterus. No injection or drainage. Oropharynx is clear. Mucous membranes are moist. CARDIOVASCULAR: Regular rate and rhythm without murmurs, gallops, or rubs. RESPIRATORY: Clear to auscultation. No wheezes, rales, or rhonchi. Breathing is non-labored. GASTROINTESTINAL: Abdomen soft, non-tender, nondistended. EXTREMITIES: No lower extremity edema. No calf tenderness. PSYCH: Alert and oriented x 3. Laboratory Laboratory Tests Test 08/14/16 08/14/16 08/14/16 10:15 11:40 12:45 White Blood Count 13.0 Red Blood Count 4.20 Hemoglobin 12.7 Hematocrit 38.6 Mean Corpuscular Volume 91.8 Mean Corpuscular Hemoglobin 30.3 Mean Corpuscular Hemoglobin 33.0 Concent Red Cell Distribution Width 16.6 Platelet Count 325 Mean Platelet Volume 8.5 Neutrophils (%) (Auto) 76.1 Lymphocytes (%) (Auto) 14.7 Monocytes (%) (Auto) 8.1 Eosinophils (%) (Auto) 0.6 Basophils (%) (Auto) 0.5 Neutrophils # (Auto) 9.8 Lymphocytes # (Auto) 1.9 Monocytes # (Auto) 1.1 Eosinophils # (Auto) 0.1 Basophils # (Auto) 0.1 CBC Comment DIFF FINAL Differential Comment Prothrombin Time 10.8 Prothromb Time International 1.0 Ratio Activated Partial 26.8 Thromboplast Time Sodium Level 136 Potassium Level 4.2 Chloride Level 101 Carbon Dioxide Level 18.4 Anion Gap 17 Blood Urea Nitrogen 42 Creatinine 3.80 Estimat Glomerular Filtration 16 Rate Random Glucose 111 Calcium Level 9.9 Total Bilirubin 0.7 Aspartate Amino Transf 24 (AST/SGOT) Alanine Aminotransferase 20 (ALT/SGPT) Alkaline Phosphatase 68 Total Protein 9.0 Albumin 4.5 Lipase 278 Urine Collection Type CLEAN CATCH Urine Color MOHIT Urine Turbidity CLEAR Urine pH 5.0 Urine Specific [place] 1.021 Urine Protein 30 Urine Glucose (UA) NEG Urine Ketones TRACE Urine Occult Blood NEG Urine Nitrite NEG Urine Bilirubin MOD Urine Leukocyte Esterase NEG Urine RBC 0-3 Urine WBC 0-2 Urine Squamous Epithelial 0-5 Cells Urine Renal Epithelial Cells 0-5 Urine Hyaline Casts 50-100 Urine Fine Granular Casts 10-15 Microscopic Urinalysis Comment CULT NOT INDICATED Urine Collection Time 11:40 Lactic Acid Level 1.4 Date/Time Procedure Status Source Growth 08/14/16 12:50 Aerobic Blood Culture Received Blood Peripheral Pending 08/14/16 12:50 Anaerobic Blood Culture Received Blood Peripheral Pending Result Diagram: 08/14/16 1015 08/14/16 1015 Imaging Last Impressions Abdomen/Pelvis CT 08/14/16 0000 Signed Impressions: Service Date/Time: Sunday, August 14, 2016 11:05 - CONCLUSION: Scattered colonic diverticuli, otherwise unremarkable. Lakeisha Small MD Assessment and Plan Assessment and Plan 1. Acute renal failure secondary to dehydration: BUN and creatinine are elevated. Continue IV fluids. Monitor labs. Consider nephrology consult. 2. Hypertension: Hold lisinopril secondary to renal failure. Continue amlodipine. 3. GERD: Continue omeprazole. 4. Anxiety: Alprazolam as needed. 5. SIRS: Patient presented with tachycardia, leukocytosis. No obvious source of infection. The patient did receive a dose of Zosyn empirically in the ER. 6. DVT prophylaxis: SCDs, EMILIANO woods. Zane Pickett MD Aug 14, 2016 13:53
[2016-08-14] MEDS ORDERED: FLUMAZENIL 0.5 MG/5 ML VIAL IV PUSH PRN (14:30)
[2016-08-14] MEDS ORDERED: LORazepam 2 MG TAB PO PRN (14:30)
[2016-08-14] MEDS ORDERED: LORazepam 2 MG/ML VIAL IV PUSH PRN ×4 (14:30)
[2016-08-14] MEDS ORDERED: ALPRAZolam 0.5 MG TAB PO PRN (14:30)
[2016-08-14] MEDS ORDERED: LORazepam 1 MG TAB PO PRN (14:30)
[2016-08-14 15:47] VITALS: BP 131/84; PULSE 103; RESP 16; TEMP 97.7; O2SAT 99
[2016-08-14 21:07] VITALS: BP 150/97; PULSE 82; RESP 20; TEMP 98.4; O2SAT 99
[2016-08-14] MEDS: ONDANSETRON HCL 4 MG/2 ML VIAL IVP PRN (21:14)
[2016-08-14] MEDS: MORPHINE SULFATE 4 MG/ML INJ IV PUSH PRN (22:39)
[2016-08-15] VITALS (8 sets, daily range): BP systolic 118–161; BP diastolic 80–101; PULSE 72–85; RESP 20; TEMP 96.6–99.4; O2SAT 94–100
[2016-08-15] MEDS: MORPHINE SULFATE 4 MG/ML INJ IV PUSH PRN ×4 (05:23→20:24)
[2016-08-15 07:22] LABS: AUTOMATED NEUTROPHIL # 6.5 TH/MM3 (1.8-7.7); BASOPHIL % 0.4 % (0.0-2.0); EOSINOPHIL # 0.2 TH/MM3 (0-0.4); HEMATOCRIT 31.3 % (39.0-51.0); HEMO FLAGS DIFF FINAL; LYMPH % 18.7 % (9.0-44.0); LYMPHOCYTE # 1.8 TH/MM3 (1.0-4.8); MEAN CELL VOLUME 92.3 FL (80.0-100.0); MEAN CORPUSCULAR HEMOGLOBIN 30.2 PG (27.0-34.0); MEAN CORPUSCULAR HGB CONC 32.7 % (32.0-36.0); MONO % 10.4 % (0.0-8.0); NEUT % 68.5 % (16.0-70.0); PLATELET COUNT 244 TH/MM3 (150-450); RED BLOOD COUNT 3.39 MIL/MM3 (4.50-5.90); RED CELL DISTRIBUTION WIDTH 15.9 % (11.6-17.2); WHITE BLOOD COUNT 9.5 TH/MM3 (4.0-11.0)
[2016-08-15 07:35] LABS: POTASSIUM 4.6 MEQ/L (3.5-5.1)
[2016-08-15 07:49] LABS: BICARBONATE 19.8 MEQ/L (21.0-32.0)
[2016-08-15] MEDS: NS + KCL 20 MEQ INJ 1,000 ML IV SCH ×2 (08:53→16:31)
[2016-08-15] MEDS: PANTOPRAZOLE SOD 20 MG DELAYED RELEASE TAB PO SCH (08:53)
[2016-08-15] MEDS: ONDANSETRON HCL 4 MG/2 ML VIAL IVP PRN ×3 (08:55→20:24)
[2016-08-15] MEDS ORDERED: amLODIPine BESYLATE 5 MG TAB PO SCH (09:00)
--- NOTE | 2016-08-15 12:51 | HHI.PR ---
Subjective Remarks Follow up dehydration, renal failure. The patient states that he had worsening diarrhea overnight and has had at least 4 loose stools today. No nausea or vomiting. No fever. Objective Vitals Vital Signs Date Time Temp Pulse Resp B/P Pulse Ox O2 Delivery O2 Flow Rate FiO2 08/15/16 12:00 96.6 83 20 136/93 100 08/15/16 08:00 97.8 72 20 124/80 99 08/15/16 05:28 16 08/15/16 01:09 99.4 84 20 118/86 94 08/15/16 00:00 99.4 84 20 118/86 94 08/14/16 21:07 98.4 82 20 150/97 99 08/14/16 15:47 97.7 103 16 131/84 99 08/14/16 13:30 80 18 119/82 98 Room Air I/O 08/14/16 08/14/16 08/14/16 08/15/16 08/15/16 08/15/16 07:00 15:00 23:00 07:00 15:00 23:00 Intake Total 1500 ml 1650 ml Balance 1500 ml 1650 ml Intake Oral 500 ml IV Total 1000 ml 1650 ml # Voids 5 4 Result Diagram: 08/15/16 0630 08/15/16 0630 Imaging Last Impressions Abdomen/Pelvis CT 08/14/16 0000 Signed Impressions: Service Date/Time: Sunday, August 14, 2016 11:05 - CONCLUSION: Scattered colonic diverticuli, otherwise unremarkable. Lakeisha Small MD Objective Remarks General: No acute distress. Heart: Regular rate and rhythm. No murmur. Lungs: Clear to auscultation bilaterally. No wheezes, rales, or rhonchi. Breathing is nonlabored. Abdomen: Soft, mild diffuse tenderness to palpation without rebound or guarding , nondistended. Extremities: No lower extremity edema. Psych: Alert and oriented. Procedures None Urinary Catheter: No Vascular Central Line Catheter: No A/P Problem List: (1) Dehydration ICD Code: E86.0 Status: Acute (2) Acute renal failure ICD Code: N17.9 Status: Acute (3) Diarrhea ICD Code: R19.7 Status: Acute (4) Hypertension ICD Code: I10 Status: Chronic (5) Leukocytosis ICD Code: D72.829 Status: Resolved (6) Sepsis ICD Code: A41.9 Status: Acute Assessment and Plan 1. Acute renal failure secondary to dehydration: BUN and creatinine are improving. Continue IV fluids. Monitor labs. 2. Hypertension: Hold lisinopril secondary to renal failure. Continue amlodipine. 3. GERD: Continue PPI. 4. Anxiety: Alprazolam as needed. 5. Sepsis: Patient presented with tachycardia, leukocytosis. Source is likely GI. The patient did receive a dose of Zosyn empirically in the ER. Leukocytosis has resolved. Diarrhea is worsening. 6. DVT prophylaxis: EMILIANO Benitez. 7. Diarrhea: Uncertain etiology. Check stool studies. Zane Pickett MD Aug 15, 2016 12:51
[2016-08-15] MEDS ORDERED: cloNIDine HCL 0.1 MG TAB PO ONE (20:30)
[2016-08-15 21:17] LABS: C. DIFF EPI 027 PRESUMPTIVE NEGATIVE (NEGATIVE)
[2016-08-16] VITALS (7 sets, daily range): BP systolic 142–151; BP diastolic 79–111; PULSE 57–100; RESP 18–20; TEMP 97.2–99; O2SAT 98–100
[2016-08-16 00:53] LABS: C. DIFF TOXIN PCR POSITIVE (NEGATIVE)
[2016-08-16] MEDS ORDERED: Vancomycin Consult Pharmacy 1 EA OTHER SCH (01:00)
[2016-08-16] MEDS ORDERED: VANCOMYCIN 1,000 MG/NS 250 ML IV ONE ×2 (02:00)
[2016-08-16] MEDS: NS + KCL 20 MEQ INJ 1,000 ML IV SCH (05:22)
[2016-08-16 07:26] LABS: AUTOMATED NEUTROPHIL # 4.4 TH/MM3 (1.8-7.7); BASOPHIL # 0.1 TH/MM3 (0-0.2); BASOPHIL % 0.8 % (0.0-2.0); EOSINOPHIL # 0.2 TH/MM3 (0-0.4); EOSINOPHIL % 2.8 % (0.0-4.0); HEMATOCRIT 30.1 % (39.0-51.0); HEMO FLAGS DIFF FINAL; LYMPH % 21.7 % (9.0-44.0); LYMPHOCYTE # 1.6 TH/MM3 (1.0-4.8); MEAN CELL VOLUME 92.4 FL (80.0-100.0); MEAN CORPUSCULAR HEMOGLOBIN 30.9 PG (27.0-34.0); MEAN CORPUSCULAR HGB CONC 33.4 % (32.0-36.0); NEUT % 62.7 % (16.0-70.0); PLATELET COUNT 212 TH/MM3 (150-450); RED BLOOD COUNT 3.26 MIL/MM3 (4.50-5.90); RED CELL DISTRIBUTION WIDTH 15.4 % (11.6-17.2); WHITE BLOOD COUNT 7.2 TH/MM3 (4.0-11.0)
[2016-08-16 07:34] LABS: POTASSIUM 5.3 MEQ/L (3.5-5.1)
[2016-08-16 07:39] LABS: BICARBONATE 19.7 MEQ/L (21.0-32.0)
--- NOTE | 2016-08-16 08:57 | HHI.PR ---
Subjective Remarks Follow-up dehydration, diarrhea, renal failure. The patient states that his diarrhea has resolved. He had a normal bowel movement this morning. Denies abdominal pain currently. Objective Vitals Vital Signs Date Time Temp Pulse Resp B/P Pulse Ox O2 Delivery O2 Flow Rate FiO2 08/16/16 08:00 97.2 70 20 151/93 99 08/16/16 04:05 98.8 57 20 151/93 98 08/16/16 00:36 99.0 72 20 146/101 99 08/15/16 23:00 74 08/15/16 21:35 73 08/15/16 20:29 16 08/15/16 20:20 97.5 85 20 161/101 100 08/15/16 16:00 98.6 82 20 161/96 100 08/15/16 12:00 96.6 83 20 136/93 100 I/O 08/15/16 08/15/16 08/15/16 08/16/16 08/16/16 08/16/16 07:00 15:00 23:00 07:00 15:00 23:00 Intake Total 1650 ml 330 ml Balance 1650 ml 330 ml Intake Oral 330 ml IV Total 1650 ml # Voids 4 6 4 2 # Bowel Movements 6 Result Diagram: 08/16/16 0649 08/16/16 0649 Imaging Last Impressions Abdomen/Pelvis CT 08/14/16 0000 Signed Impressions: Service Date/Time: Sunday, August 14, 2016 11:05 - CONCLUSION: Scattered colonic diverticuli, otherwise unremarkable. Lakeisha Small MD Objective Remarks General: No acute distress. Heart: Regular rate and rhythm. No murmur. Lungs: Clear to auscultation bilaterally. No wheezes, rales, or rhonchi. Breathing is nonlabored. Abdomen: Soft, nontender, nondistended. Extremities: No lower extremity edema. Psych: Alert and oriented. Procedures None Urinary Catheter: No Vascular Central Line Catheter: No A/P Problem List: (1) Dehydration ICD Code: E86.0 Status: Acute (2) Acute renal failure ICD Code: N17.9 Status: Acute (3) Diarrhea ICD Code: R19.7 Status: Acute (4) Hypertension ICD Code: I10 Status: Chronic (5) Leukocytosis ICD Code: D72.829 Status: Resolved (6) Sepsis ICD Code: A41.9 Status: Acute Assessment and Plan 1. Acute renal failure secondary to dehydration: BUN and creatinine continue to improve. Continue IV fluids. Monitor labs. 2. Hypertension: Hold lisinopril secondary to renal failure. Continue amlodipine. 3. GERD: Continue PPI. 4. Anxiety: Alprazolam as needed. 5. Sepsis: Patient presented with tachycardia, leukocytosis. Source is GI. The patient did receive a dose of Zosyn empirically in the ER. Leukocytosis has resolved. 6. DVT prophylaxis: EMILIANO Benitez. 7. C. difficile, recurrent: C. difficile toxin positive. Patient is no longer having diarrhea. Continue oral vancomycin. Consult infectious disease. Zane Pickett MD Aug 16, 2016 08:57
[2016-08-16] MEDS: PANTOPRAZOLE SOD 20 MG DELAYED RELEASE TAB PO SCH (09:01)
[2016-08-16] MEDS: VANCOMYCIN 500 MG VIAL (FOR ORAL USE ONLY) PO SCH ×4 (09:01→22:14)
[2016-08-16] MEDS: SODIUM CHLOR 0.9% 1000 ML INJ 1,000 ML IV SCH ×2 (09:02→16:16)
[2016-08-16] MEDS: ONDANSETRON HCL 4 MG/2 ML VIAL IVP PRN (20:32)
[2016-08-16] MEDS: MORPHINE SULFATE 4 MG/ML INJ IV PUSH PRN (20:35)
--- NOTE | 2016-08-16 23:04 | PD.CONS ---
History of Present Illness Service ID CONSULT DR NESBITT Consult Requested By MD ZECHARIAH Reason for Consult RECURTRENT CDIFF COLITIS Primary Care Physician Yamil Collado DO Diagnoses: (1) C. difficile enteritis History of Present Illness 61 Y/O READMITTED WITH ABD PAIN AND DIARRHEA THAT HE STATES STARTED WEDNESDAY LAST WEEK. HE WAS SEEN AND ADM 07/28 WHEN HE PRESENTED WITH ABD PAIN, NAUSEA VOMITTING AND DIARRHEA. HE WENT ON A CRUISE TO [email or web address] A MONTH AGO AND STATES HE HAS EATEN OUT SINCE THAT TIME. HE HAD A CDIFF INFECTION LAST YEAR MAY. HE DENIES ANY OUT PATIENT ANTIBIOTICS HOWEVER HE DID HAVE ZOSYN/ AUGMENTIN ON 07/27 HOSPITAL VISIT. HE HAS BEEN IN ROUTINE HEALTH UNTIL THIS EPISODE. Review of Systems ROS Limitations: Refused Constitutional: COMPLAINS OF: Night Sweats, DENIES: Fever, Chills Endocrine: DENIES: Polyphagia Eyes: DENIES: Diplopia, Eye pain Ears, nose, mouth, throat: DENIES: Sinus Pain Respiratory: DENIES: Cough Gastrointestinal: COMPLAINS OF: Abdominal pain, Diarrhea, Nausea, Vomiting, DENIES: Bloody stools, Constipation, Difficulty Swallowing, Anorexia Genitourinary: DENIES: Urinary incontinence Musculoskeletal: DENIES: Joint Swelling Integumentary: DENIES: Nail changes Hematologic/lymphatic: DENIES: Lymphadenopathy Past Family Social History Allergies: Coded Allergies: Bactrim (Verified Allergy, Severe, Diarrhea, 08/14/16) Codeine (Verified Allergy, Severe, RASH, 08/14/16) Levaquin (Verified Allergy, Severe, ACHILLES TENDON PROBLEM, 08/14/16) Past Medical History Past Family Social History Past Medical History Previous history of acute kidney injury secondary to dehydration Hypertension. diverticulitis. History of DVTs. History of alcohol abuse History of alcoholic withdrawal seizures. History of Achilles tendon rupture. History of cdiff colitis Past Surgical History Past Surgical History achilles tendon repair on the left left hip arthroplasty Reported Medications Reported Medications Allergies Coded Allergies Type Severity Reaction Last Updated Verified Bactrim Allergy Severe Diarrhea 07/27/16 Yes Codeine Allergy Severe RASH 07/27/16 Yes Levaquin Allergy Severe ACHILLES TENDON PROBLEM 07/27/16 Yes Active Scripts Medications Dose Route/Sig Days Date Category Chlordiazepoxide (Chlordiazepoxide HCl) 5 Mg Cap 5 Mg PO BID 04/17/16 Reported Alprazolam 0.5 Mg Tab 0.5 Mg PO BID 03/13/16 Reported Amlodipine (Amlodipine Besylate) 5 Mg Tab 5 Mg PO DAILY 03/13/16 Reported Omeprazole 20 Mg Tab 20 Mg PO DAILY 03/13/16 Reported Lisinopril 20 Mg Tab 20 Mg PO DAILY 03/13/16 Reported Allergies: Coded Allergies: Bactrim (Verified Allergy, Severe, Diarrhea, 07/27/16) Codeine (Verified Allergy, Severe, RASH, 07/27/16) Levaquin (Verified Allergy, Severe, ACHILLES TENDON PROBLEM, 07/27/16) Family History Family History Mother had CHF and dementia Social History NO SMOKING OCC ETOH NO DRUG USE Physical Exam Vital Signs Vital Signs Date Time Temp Pulse Resp B/P Pulse Ox O2 Delivery O2 Flow Rate FiO2 08/16/16 20:00 98.5 88 18 151/111 100 08/16/16 16:00 97.9 100 20 142/100 100 08/16/16 12:00 98.1 72 20 143/79 100 08/16/16 08:00 97.2 70 20 151/93 99 08/16/16 04:05 98.8 57 20 151/93 98 08/16/16 00:36 99.0 72 20 146/101 99 08/15/16 23:00 74 Physical Exam GENERAL: This is a well-nourished, well-developed patient, in no apparent distress. SKIN: No rashes, ecchymoses or lesions. Cool and dry. HEAD: Atraumatic. Normocephalic. No temporal or scalp tenderness. EYES: Pupils equal round and reactive. Extraocular motions intact. No scleral icterus. No injection or drainage. ENT: Nose without bleeding, purulent drainage or septal hematoma. Throat without erythema, tonsillar hypertrophy or exudate. Uvula midline. Airway patent. NECK: Trachea midline. No JVD or lymphadenopathy. Supple, nontender, no meningeal signs. CARDIOVASCULAR: Regular rate and rhythm without murmurs, gallops, or rubs. RESPIRATORY: Clear to auscultation. Breath sounds equal bilaterally. No wheezes , rales, or rhonchi. GASTROINTESTINAL: Abdomen soft, non-tender, nondistended. No hepato-splenomegaly , or palpable masses. No guarding. MUSCULOSKELETAL: Extremities without clubbing, cyanosis, or edema. No joint tenderness, effusion, or edema noted. No calf tenderness. Negative Homans sign bilaterally. NEUROLOGICAL: Awake and alert. Cranial nerves II through XII intact. Motor and sensory grossly within normal limits. Five out of 5 muscle strength in all muscle groups. Normal speech. Laboratory Laboratory Tests Test 08/16/16 06:49 White Blood Count 7.2 Red Blood Count 3.26 Hemoglobin 10.1 Hematocrit 30.1 Mean Corpuscular Volume 92.4 Mean Corpuscular Hemoglobin 30.9 Mean Corpuscular Hemoglobin 33.4 Concent Red Cell Distribution Width 15.4 Platelet Count 212 Mean Platelet Volume 8.9 Neutrophils (%) (Auto) 62.7 Lymphocytes (%) (Auto) 21.7 Monocytes (%) (Auto) 12.0 Eosinophils (%) (Auto) 2.8 Basophils (%) (Auto) 0.8 Neutrophils # (Auto) 4.4 Lymphocytes # (Auto) 1.6 Monocytes # (Auto) 0.9 Eosinophils # (Auto) 0.2 Basophils # (Auto) 0.1 CBC Comment DIFF FINAL Differential Comment Sodium Level 139 Potassium Level 5.3 Chloride Level 111 Carbon Dioxide Level 19.7 Anion Gap 8 Blood Urea Nitrogen 23 Creatinine 1.40 Estimat Glomerular Filtration 51 Rate Random Glucose 96 Calcium Level 8.2 Date/Time Procedure Status Source Growth 08/15/16 16:20 Rotavirus Antigen - Final Complete Stool Stool NEGATIVE - ROTAVIRUS ANTIGEN IS ABSEN... 08/15/16 16:20 Cryptosporidium Exam Resulted Stool Stool Pending 08/15/16 16:20 Stool Pus (ALYSSIA) - Final Resulted Stool Stool FEW WBC'S 08/15/16 16:20 Giardia Antigen (ALYSSIA) Resulted Stool Stool Pending 08/14/16 12:50 Aerobic Blood Culture - Preliminary Resulted Blood Peripheral NO GROWTH IN 2 DAYS 08/14/16 12:50 Anaerobic Blood Culture - Preliminary Resulted Blood Peripheral NO GROWTH IN 2 DAYS Result Diagram: 08/16/16 0649 08/16/16 0649 Assessment and Plan Problem List: (1) Clostridium difficile infection Status: Acute Plan: INCREASE VANCO TO 250MG PO QID WILL CONTINUE FLORASTOR PLAN TO Bhakti Coy Aug 16, 2016 23:04
[2016-08-17] VITALS: BP 159/99; PULSE 84; RESP 18; TEMP 97.9; O2SAT 98
[2016-08-17] MEDS: MORPHINE SULFATE 4 MG/ML INJ IV PUSH PRN (01:41)
[2016-08-17] MEDS: SODIUM CHLOR 0.9% 1000 ML INJ 1,000 ML IV SCH (01:43)
[2016-08-17] MEDS ORDERED: VANCOMYCIN 1,000 MG/NS 250 ML IV SCH ×2 (02:00)
[2016-08-17 04:00] VITALS: BP 154/98; PULSE 73; RESP 18; TEMP 98.2; O2SAT 99
[2016-08-17 06:52] LABS: BICARBONATE 20.6 MEQ/L (21.0-32.0); POTASSIUM 4.3 MEQ/L (3.5-5.1)
[2016-08-17 08:00] VITALS: BP 163/105; PULSE 78; PULSE 97; RESP 18; TEMP 97.7; O2SAT 100
--- NOTE | 2016-08-17 08:07 | HHI.IDPN ---
Subjective Subjective Remarks No more diarrhea No fevers Abdominal pain resolved Antibiotics PO Vancomycin Lines Peripheral IV line Past Medical History Arthritis Hypertension Anxiety Diverticulosis GERD History of alcohol withdrawal with seizures Past Surgical History Rectal surgery for thrombosis Left ankle Achilles tendon surgery Prostate biopsy Left hip replacement Back surgery 2 Neck surgery Allergies: Coded Allergies: Bactrim (Verified Allergy, Severe, Diarrhea, 08/14/16) Codeine (Verified Allergy, Severe, RASH, 08/14/16) Levaquin (Verified Allergy, Severe, ACHILLES TENDON PROBLEM, 08/14/16) Review of Systems Constitutional Constitutional Remarks No fever chills Objective . Vital Signs Date Time Temp Pulse Resp B/P Pulse Ox O2 Delivery O2 Flow Rate FiO2 08/17/16 04:00 98.2 73 18 154/98 99 08/17/16 01:46 18 08/17/16 00:00 97.9 84 18 159/99 98 08/16/16 23:00 80 08/16/16 20:00 98.5 88 18 151/111 100 08/16/16 20:00 88 08/16/16 16:00 97.9 100 20 142/100 100 08/16/16 12:00 98.1 72 20 143/79 100 08/16/16 08/16/16 08/17/16 15:00 23:00 07:00 Intake Total 480 ml 240 ml 6824 ml Output Total 500 ml Balance 480 ml 240 ml 6324 ml Intake Oral 480 ml 240 ml IV Total 6824 ml Output Urine Total 500 ml # Voids 6 6 7 # Bowel Movements 5 0 1 . Laboratory Tests Test 08/16/16 06:49 White Blood Count 7.2 TH/MM3 Red Blood Count 3.26 MIL/MM3 Hemoglobin 10.1 GM/DL Hematocrit 30.1 % Mean Corpuscular Volume 92.4 FL Mean Corpuscular Hemoglobin 30.9 PG Mean Corpuscular Hemoglobin 33.4 % Concent Red Cell Distribution Width 15.4 % Platelet Count 212 TH/MM3 Mean Platelet Volume 8.9 FL Neutrophils (%) (Auto) 62.7 % Lymphocytes (%) (Auto) 21.7 % Monocytes (%) (Auto) 12.0 % Eosinophils (%) (Auto) 2.8 % Basophils (%) (Auto) 0.8 % Neutrophils # (Auto) 4.4 TH/MM3 Lymphocytes # (Auto) 1.6 TH/MM3 Monocytes # (Auto) 0.9 TH/MM3 Eosinophils # (Auto) 0.2 TH/MM3 Basophils # (Auto) 0.1 TH/MM3 CBC Comment DIFF FINAL Differential Comment Laboratory Tests Test 08/16/16 08/17/16 06:49 06:00 Sodium Level 139 MEQ/L 140 MEQ/L Potassium Level 5.3 MEQ/L 4.3 MEQ/L Chloride Level 111 MEQ/L 109 MEQ/L Carbon Dioxide Level 19.7 MEQ/L 20.6 MEQ/L Anion Gap 8 MEQ/L 10 MEQ/L Blood Urea Nitrogen 23 MG/DL 13 MG/DL Creatinine 1.40 MG/DL 1.10 MG/DL Estimat Glomerular Filtration 51 ML/MIN 68 ML/MIN Rate Random Glucose 96 MG/DL 87 MG/DL Calcium Level 8.2 MG/DL 8.3 MG/DL Microbiology Date/Time Procedure Status Source Growth 08/14/16 12:45 Aerobic Blood Culture - Preliminary Resulted Blood Peripheral NO GROWTH IN 2 DAYS 08/14/16 12:45 Anaerobic Blood Culture - Preliminary Resulted Blood Peripheral NO GROWTH IN 2 DAYS 08/14/16 12:50 Aerobic Blood Culture - Preliminary Resulted Blood Peripheral NO GROWTH IN 2 DAYS 08/14/16 12:50 Anaerobic Blood Culture - Preliminary Resulted Blood Peripheral NO GROWTH IN 2 DAYS 08/15/16 16:20 Rotavirus Antigen - Final Complete Stool Stool NEGATIVE - ROTAVIRUS ANTIGEN IS ABSEN... 08/15/16 16:20 Cryptosporidium Exam Resulted Stool Stool Pending 08/15/16 16:20 Stool Pus (ALYSSIA) - Final Resulted Stool Stool FEW WBC'S 08/15/16 16:20 Giardia Antigen (ALYSSIA) Resulted Stool Stool Pending Physical Exam GENERAL: Alert, oriented x 3 SKIN: No rashes, ecchymoses. Cool and dry. Chronic skin changes, scars HEAD: Atraumatic. Normocephalic. No temporal or scalp tenderness. EYES: Pupils equal round and reactive. Extraocular motions intact. No scleral icterus. No injection or drainage. ENT: Nose without bleeding, purulent drainage or septal hematoma. Throat without erythema, tonsillar hypertrophy or exudate. Uvula midline. Airway patent. NECK: Trachea midline. No JVD or lymphadenopathy. Supple, nontender, no meningeal signs. CARDIOVASCULAR: Regular rate and rhythm without murmurs, gallops, or rubs. RESPIRATORY: Clear to auscultation. Breath sounds equal bilaterally. No wheezes , rales, or rhonchi. GASTROINTESTINAL: Abdomen soft, non-tender, nondistended. No hepato-splenomegaly , or palpable masses. No guarding. MUSCULOSKELETAL: Extremities without clubbing, cyanosis, or edema. No joint tenderness, effusion, or edema noted. No calf tenderness. Negative Homans sign bilaterally. NEUROLOGICAL: Awake and alert. Cranial nerves II through XII intact. Motor and sensory grossly within normal limits. Five out of 5 muscle strength in all muscle groups. Normal speech Assessment & Plan Diagnosis: (1) Clostridium difficile infection Plan: Responding well to PO Vancomycin Continue PO Vancomycin with tapering dose 250 mg po qid x 2 weeks then tid x 3 weeks then bid x 2 weeks ( Can use liquid form) Will need case management to help get his meds - had difficulty before Debbie Cervantes MD Aug 17, 2016 08:07
[2016-08-17] MEDS: VANCOMYCIN 500 MG VIAL (FOR ORAL USE ONLY) PO SCH ×2 (08:52→12:35)
[2016-08-17] MEDS: PANTOPRAZOLE SOD 20 MG DELAYED RELEASE TAB PO SCH (08:54)
[2016-08-17] MEDS ORDERED: LISINOPRIL 10 MG TAB PO SCH (09:00)
--- NOTE | 2016-08-17 11:01 | HHI.PR ---
Subjective Remarks Follow up c difficile diarrhea, hypertension. Patient reports normal stools this morning. No diarrhea, abdominal pain. Objective Vitals Vital Signs Date Time Temp Pulse Resp B/P Pulse Ox O2 Delivery O2 Flow Rate FiO2 08/17/16 08:00 97.7 78 18 163/105 100 08/17/16 04:00 98.2 73 18 154/98 99 08/17/16 01:46 18 08/17/16 00:00 97.9 84 18 159/99 98 08/16/16 23:00 80 08/16/16 20:00 98.5 88 18 151/111 100 08/16/16 20:00 88 08/16/16 16:00 97.9 100 20 142/100 100 08/16/16 12:00 98.1 72 20 143/79 100 I/O 08/16/16 08/16/16 08/16/16 08/17/16 08/17/16 08/17/16 07:00 15:00 23:00 07:00 15:00 23:00 Intake Total 480 ml 240 ml 6824 ml Output Total 500 ml Balance 480 ml 240 ml 6324 ml Intake Oral 480 ml 240 ml IV Total 6824 ml Output Urine Total 500 ml # Voids 2 6 6 7 # Bowel Movements 5 0 1 Result Diagram: 08/16/16 0649 08/17/16 0600 Imaging Last Impressions Abdomen/Pelvis CT 08/14/16 0000 Signed Impressions: Service Date/Time: Sunday, August 14, 2016 11:05 - CONCLUSION: Scattered colonic diverticuli, otherwise unremarkable. Lakeisha Small MD Objective Remarks General: No acute distress. Heart: Regular rate and rhythm. No murmur. Lungs: Clear to auscultation bilaterally. No wheezes, rales, or rhonchi. Breathing is nonlabored. Abdomen: Soft, nontender, nondistended. Extremities: No lower extremity edema. Psych: Alert and oriented. Procedures None Urinary Catheter: No Vascular Central Line Catheter: No A/P Problem List: (1) Dehydration ICD Code: E86.0 Status: Acute (2) Acute renal failure ICD Code: N17.9 Status: Acute (3) Diarrhea ICD Code: R19.7 Status: Acute (4) Hypertension ICD Code: I10 Status: Chronic (5) Leukocytosis ICD Code: D72.829 Status: Resolved (6) Sepsis ICD Code: A41.9 Status: Acute Assessment and Plan 1. Acute renal failure secondary to dehydration: BUN and creatinine continue to improve. Stop IV fluids. Monitor labs. 2. Hypertension: Continue amlodipine. Restart lisinopril. 3. GERD: Continue PPI. 4. Anxiety: Alprazolam as needed. 5. Sepsis: Patient presented with tachycardia, leukocytosis. Source is GI. The patient did receive a dose of Zosyn empirically in the ER. Leukocytosis has resolved. 6. DVT prophylaxis: EMILIANO Benitez. 7. C. difficile, recurrent: C. difficile toxin positive. Patient is no longer having diarrhea. Continue oral vancomycin. Appreciate infectious disease recommendations. Discharge Planning Discharge home when arrangements can be made for patient to have oral vancomycin as outpatient. Discussed with case management. Zane Pickett MD Aug 17, 2016 11:00
[2016-08-17] MEDS ORDERED: VANC500I3 PO (11:17)
[2016-08-17 12:00] VITALS: BP 163/94; PULSE 83; RESP 18; TEMP 97.9; O2SAT 100
[2016-08-17] MEDS ORDERED: VANC250C2 PO (14:31)
--- NOTE | 2016-08-17 14:32 | HHI.DCPOC ---
Discharge Care Plan Diagnosis: (1) Clostridium difficile infection (2) Sepsis (3) Hypertension (4) Diarrhea (5) Dehydration (6) Acute renal failure Goals to Promote Your Health * To prevent worsening of your condition and complications * To maintain your health at the optimal level Directions to Meet Your Goals Take your medications as prescribed Follow your dietary instruction Follow activity as directed Keep your appointments as scheduled Take your immunizations and boosters as scheduled If your symptoms worsen call your PCP, if no PCP go to Urgent Care Center or Emergency Room Smoking is Dangerous to Your Health. Avoid second hand smoke Call the 24-hour hour crisis hotline for domestic abuse at Zane Pickett MD Aug 17, 2016 14:32
[2016-08-19] MEDS ORDERED: PHARMACY ORDERED LAB ONE (01:45)
== END 2016-08-17 15:41 | disposition home or self-care (01) | DRG 872 ==
LOC: PHED 09:41 → PHEDA 12:32 → PH3A 13:41
PROVIDERS: ADMIT Family Medicine; ATTEND Family Medicine
DX: A41.9 Sepsis, unspecified organism (principal); N17.9 Acute kidney failure, unspecified; A04.7 Enterocolitis due to Clostridium difficile; E86.0 Dehydration; I10 Essential (primary) hypertension; K21.9 Gastro-esophageal reflux disease without esophagitis; F41.9 Anxiety disorder, unspecified; Z96.642 Presence of left artificial hip joint
CPT/HCPCS: 74176; 80048; 80053; 81001; 83605; 83690; 85025; 85610; 85730; 87040; 87205; 87328; 87329; 87425; 87493; 96361; 96374; J2270; J2405; J2543; J3370; J3480; J7030; J7050

== ENCOUNTER 2016-09-12 10:27 | Emergency (ER) | payer BC ==
[~2016-09-12] VITALS: Ht 175.3 cm; Wt 68.0 kg
[~2016-09-12 10:27] MED LIST changes: +VANC250C2 PO
[2016-09-12 10:31] VITALS: BP 145/111; PULSE 118; RESP 17; TEMP 98.2; O2SAT 100
[2016-09-12] MEDS ORDERED: SODIUM CHLOR 0.9% 1000 ML INJ 1,000 ML IV SCH (10:55)
[2016-09-12 11:00] VITALS: O2SAT 98
[2016-09-12] MEDS ORDERED: ONDANSETRON HCL 4 MG/2 ML VIAL IVP ONE (11:00)
[2016-09-12] MEDS ORDERED: PANTOPRAZOLE SODIUM 40 MG VIAL IVP ONE (11:00)
--- NOTE | 2016-09-12 11:01 | PD ---
HPI Chief Complaint: Abdominal Pain Time Seen by Provider: 10:44 Travel History International Travel<30 days: No Contact w/Intl Traveler<30days: No Traveled to known affect area: No History of Present Illness HPI 61-year-old male complains of low abdominal pain and diarrhea. Patient states that he started having sharp pain localized to lower abdomen yesterday afternoon. Patient started having severe diarrhea since last night. Patient states that the abdominal pain is sharp pain localized to lower abdomen. Patient denies any pain radiation. Patient states that he has nausea but no vomiting. Patient denies any blood or mucus in the stool. Patient denies dysuria or frequency. Patient denies any fever chills. Patient denies any back pain. Patient was admitted to [facility] August 14 and discharged August 17 with diagnosis of C. difficile colitis. Patient was discharged home on vancomycin 250 mg started at 4 times a day to 3 times a day and now twice a day. 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 ) Asthma: No Autoimmune Disease: No Anxiety: Yes Depression: No Heart Rhythm Problems: No Cancer: No Cardiovascular Problems: Yes (HTN) High Cholesterol: No Chemotherapy: No Chest Pain: No Congestive Heart Failure: No COPD: No Cerebrovascular Accident: No Diabetes: No Diminished Hearing: No Diverticulitis: Yes Endocrine: No GERD: Yes Genitourinary: No Headaches: No Hiatal Hernia: No Heparin Induced Thrombocytopen: No Hypertension: Yes Immune Disorder: No Implanted Vascular Access Dvce: Yes Kidney Stones: No Musculoskeletal: Yes Neurologic: Yes Psychiatric: No Reproductive: No Respiratory: No Immunizations Current: Yes Migraines: No Pancreatitis: Yes Renal Failure: No Seizures: Yes (IN PAST R/T ALCOHOL WITHDRAWAL 2013) Sickle Cell Disease: No Sleep Apnea: No Thyroid Disease: No Ulcer: No Influenza Vaccination: Yes PNEUMOCCOCAL Vaccine (Year): 2 ?: Not Past Surgical History Abdominal Surgery: Yes (RECTAL SURGERY FOR RECTUM THROMBOSIS) AICD: No Arteriovenous Shunt: No Body Medical Devices: DISSOLVABLE SCREW IN LEFT ANKLE - placed 2014 Cardiac Surgery: No Ear Surgery: No Endocrine Surgery: No Eye Surgery: No Genitourinary Surgery: Yes (PROSTATE BIOPSY-NEGATIVE) Gynecologic Surgery: No Hysterectomy: No Insulin Pump: No Joint Replacement: Yes (left hip) Neurologic Surgery: No Oral Surgery: No Pacemaker: No Other Surgery: Yes (2 BACK AND ONE NECK SURGERIES) Social History Alcohol Use: Yes (3 TO 4 TIMES PER DAY) Tobacco Use: No Substance Use: Yes (marijuana) Allergies-Medications (Allergen,Severity, Reaction): Coded Allergies: Bactrim (Verified Allergy, Severe, Diarrhea, 09/12/16) Codeine (Verified Allergy, Severe, RASH, 09/12/16) Levaquin (Verified Allergy, Severe, ACHILLES TENDON PROBLEM, 09/12/16) Reported Meds & Prescriptions Reported Meds & Active Scripts Active Vancomycin (Vancomycin HCl) 250 Mg Cap 250 Mg PO QID 250mg PO QID x 2wks, then 250mg TID x 3wks, then 250mg BID x 2wks Reported Alprazolam 0.5 Mg Tab 0.5 Mg PO BID Amlodipine (Amlodipine Besylate) 5 Mg Tab 5 Mg PO DAILY Omeprazole 20 Mg Tab 20 Mg PO DAILY Lisinopril 20 Mg Tab 20 Mg PO DAILY Review of Systems General / Constitutional: No: Fever Eyes: No: Visual changes HENT: No: Headaches Cardiovascular: No: Chest Pain or Discomfort Respiratory: No: Shortness of Breath Gastrointestinal: Positive: Nausea, Diarrhea, Abdominal Pain Genitourinary: No: Dysuria Musculoskeletal: No: Pain Skin: No Rash Neurologic: No: Weakness Psychiatric: No: Depression Endocrine: No: Polydipsia Hematologic/Lymphatic: No: Easy Bruising Physical Exam Narrative GENERAL: Well-nourished, well-developed patient. SKIN: Focused skin assessment warm/dry. HEAD: Normocephalic. EYES: No scleral icterus. No injection or drainage. NECK: Supple, trachea midline. No JVD or lymphadenopathy. CARDIOVASCULAR: Regular rate and rhythm without murmurs, gallops, or rubs. RESPIRATORY: Breath sounds equal bilaterally. No accessory muscle use. GASTROINTESTINAL: Abdomen soft, nondistended. Patient has moderate diffuse tenderness over the abdomen. No rebound tenderness. No mass. MUSCULOSKELETAL: No cyanosis, or edema. BACK: Nontender without obvious deformity. No CVA tenderness. Neurologic exam normal. Data Data Last Documented VS Vital Signs Date Time Temp Pulse Resp B/P Pulse Ox O2 Delivery O2 Flow Rate FiO2 09/12/16 11:00 98 Room Air 09/12/16 10:31 98.2 118 17 145/111 Orders Complete Blood Count With Diff (09/12/16 10:55) Comprehensive Metabolic Panel (09/12/16 10:55) Lipase (09/12/16 10:55) Prothrombin Time / Inr (Pt) (09/12/16 10:55) Urinalysis - C+S If Indicated (09/12/16 10:55) Ct Abd/Pel W Iv Contrast(Rout) (09/12/16 10:55) Iv Access Insert/Monitor (09/12/16 10:55) Ecg Monitoring (09/12/16 10:55) Oximetry (09/12/16 10:55) Ondansetron Inj (Zofran Inj) (09/12/16 11:00) Pantoprazole Inj (Protonix Inj) (09/12/16 11:00) Sodium Chlor 0.9% 1000 Ml Inj (Ns 1000 M (09/12/16 10:55) Iohexol 350 Inj (Omnipaque 350 Inj) (09/12/16 12:01) Vancomycin For Oral Use Only (Vancomycin (09/12/16 13:45) Labs Laboratory Tests Test 09/12/16 11:00 White Blood Count 13.0 TH/MM3 Red Blood Count 3.59 MIL/MM3 Hemoglobin 11.2 GM/DL Hematocrit 32.9 % Mean Corpuscular Volume 91.8 FL Mean Corpuscular Hemoglobin 31.1 PG Mean Corpuscular Hemoglobin 33.9 % Concent Red Cell Distribution Width 16.1 % Platelet Count 237 TH/MM3 Mean Platelet Volume 7.9 FL Neutrophils (%) (Auto) 75.9 % Lymphocytes (%) (Auto) 12.3 % Monocytes (%) (Auto) 11.1 % Eosinophils (%) (Auto) 0.4 % Basophils (%) (Auto) 0.3 % Neutrophils # (Auto) 9.9 TH/MM3 Lymphocytes # (Auto) 1.6 TH/MM3 Monocytes # (Auto) 1.4 TH/MM3 Eosinophils # (Auto) 0.1 TH/MM3 Basophils # (Auto) 0.0 TH/MM3 CBC Comment DIFF FINAL Differential Comment Prothrombin Time 10.7 SEC Prothromb Time International 1.0 RATIO Ratio Sodium Level 138 MEQ/L Potassium Level 3.4 MEQ/L Chloride Level 102 MEQ/L Carbon Dioxide Level 24.1 MEQ/L Anion Gap 12 MEQ/L Blood Urea Nitrogen 19 MG/DL Creatinine 1.50 MG/DL Estimat Glomerular Filtration 47 ML/MIN Rate Random Glucose 127 MG/DL Calcium Level 9.3 MG/DL Total Bilirubin 0.7 MG/DL Aspartate Amino Transf 14 U/L (AST/SGOT) Alanine Aminotransferase 15 U/L (ALT/SGPT) Alkaline Phosphatase 80 U/L Total Protein 8.4 GM/DL Albumin 3.9 GM/DL Lipase 145 U/L MDM Medical Decision Making Medical Screen Exam Complete: Yes Emergency Medical Condition: Yes Interpretation(s) Last Impressions Abdomen/Pelvis CT 09/12/16 1055 Signed Impressions: Service Date/Time: Monday, September 12, 2016 11:41 - CONCLUSION: Chronic diverticular disease of the sigmoid colon. No acute findings. Fady Justin MD 1323 PM. CBC WBC 13.0. Hemoglobin 11.2 hematocrit 32.9. 75 neutrophil. Potassium 3.4. BUN 19. Creatinine 1.50. GFR 47. AST 14. Differential Diagnosis Differential diagnosis including colitis, gastritis, PUD, pancreatitis, cholecystitis, UTI, pyelonephritis, nephrolithiasis. Narrative Course 61-year-old male with abdominal pain and diarrhea. Patient being treated for C. difficile colitis with vancomycin. Normal saline solution 1 L IV bolus. Morphine 2 mg IV. Zofran 4 mg IV. Protonix 40 mg IV. I spoke with Dr. Cervantes, infectious disease. Patient is known to her. Advised increased vancomycin to 250 mg 4 times a day for one week. Follow-up with her in the office. Diagnosis Primary Impression: C. difficile colitis Additional Impression: SHAVONNE (acute kidney injury) Patient Instructions: General Instructions Additional Instructions: Vancomycin 250 mg 4 times a day for one week. Follow-up with infectious disease Dr. Cervantes in 3 days. Return if persistent problem or worse. Med/Other Pt SpecificInfo: Prescription(s) given, Existing Med Changed Scripts Vancomycin 250 Mg [id number] Mg PO QID #40 CAP Ref 0 Prov:Matt Rene MD 09/12/16 Disposition: 01 DISCHARGE HOME Condition: Stable Matt Rene MD September 12, 2016 11:01
[2016-09-12 11:16] LABS: AUTOMATED NEUTROPHIL # 9.9 TH/MM3 (1.8-7.7); BASOPHIL % 0.3 % (0.0-2.0); EOSINOPHIL # 0.1 TH/MM3 (0-0.4); EOSINOPHIL % 0.4 % (0.0-4.0); HEMATOCRIT 32.9 % (39.0-51.0); HEMO FLAGS DIFF FINAL; LYMPH % 12.3 % (9.0-44.0); LYMPHOCYTE # 1.6 TH/MM3 (1.0-4.8); MEAN CELL VOLUME 91.8 FL (80.0-100.0); MEAN CORPUSCULAR HEMOGLOBIN 31.1 PG (27.0-34.0); MEAN CORPUSCULAR HGB CONC 33.9 % (32.0-36.0); MONO % 11.1 % (0.0-8.0); NEUT % 75.9 % (16.0-70.0); PLATELET COUNT 237 TH/MM3 (150-450); RED BLOOD COUNT 3.59 MIL/MM3 (4.50-5.90); RED CELL DISTRIBUTION WIDTH 16.1 % (11.6-17.2)
[2016-09-12 11:24] LABS: CHLORIDE 102 MEQ/L (98-107); POTASSIUM 3.4 MEQ/L (3.5-5.1); SODIUM (NA) 138 MEQ/L (136-145)
[2016-09-12 11:26] LABS: PROTHROMBIN TIME - PATIENT 10.7 SEC (9.8-11.6)
[2016-09-12 11:28] LABS: ANION GAP 12 MEQ/L (5-15); BICARBONATE 24.1 MEQ/L (21.0-32.0); BLOOD UREA NITROGEN 19 MG/DL (7-18)
[2016-09-12 11:31] LABS: ALT (GPT) 15 U/L (12-78); AST (GOT) 14 U/L (15-37); GLOMERULAR FILTRATION RATE 47 ML/MIN (>89)
[2016-09-12 11:32] LABS: TOTAL BILIRUBIN ADULT 0.7 MG/DL (0.2-1.0)
[2016-09-12 11:33] LABS: ALKALINE PHOSPHATASE 80 U/L (45-117)
[2016-09-12] MEDS ORDERED: IOHEXOL 350 MG/ML 10 ML VIAL (for RAD DIAG) IV ONE (12:01)
--- NOTE | 2016-09-12 13:11 | RADHPO ---
EXAM DATE/TIME: 09/12/2016 11:41 [facility] COMPARISON: CT ABDOMEN & PELVIS W/O CONTRAST, August 14, 2016, 11:05. CT ABDOMEN & PELVIS W CONTRAST, October 06 16, 22:08. CT ABDOMEN & PELVIS W/O CONTRAST, May 10, 2011, 11:57. CT ABDOMEN & PELVIS W CONTRAS T, April 17, 2016, 8:54. INDICATIONS : Lower abdominal pain, severe diarrhea, nausea. IV CONTRAST: 96 cc Omnipaque 350 (iohexol) IV ORAL CONTRAST: No oral contrast ingested. RADIATION DOSE: 9.05 CTDIvol (mGy) MEDICAL HISTORY : Diverticulitis. Pancreatitis. Gastroesophageal reflux disease.C-difficile, hypertension. SURGICAL HISTORY : Rectal surgery. ENCOUNTER: Initial ACUITY: 1 day PAIN SCALE: 7/10 LOCATION: Bilateral lower quadrant TECHNIQUE: Volumetric scanning of the abdomen and pelvis was performed. Using automated exposure control and ad justment of the mA and/or kV according to patient size, radiation dose was kept as low as reasonably achievable to obtain optimal diagnostic quality images. FINDINGS: LOWER LUNGS: The visualized lower lungs are unchanged. LIVER: Homogeneous density without lesion. There is no dilation of the biliary tree. No calcified gallston es. SPLEEN: Normal size without lesion. PANCREAS: Within normal limits. KIDNEYS: Kidneys unchanged. No hydronephrosis. ADRENAL GLANDS: Within normal limits. VASCULAR: There is no aortic aneurysm. BOWEL/MESENTERY: Numerous colonic diverticuli. No bowel dilatation. Chronic diffuse wall thickening of the sigmoid col on suggesting chronic diverticular disease. No surrounding inflammatory changes seen. Appendix within normal limits. ABDOMINAL WALL: Within normal limits. RETROPERITONEUM: There is no lymphadenopathy. BLADDER: No wall thickening or mass. REPRODUCTIVE: Within normal limits. INGUINAL: There is no lymphadenopathy or hernia. MUSCULOSKELETAL: Unchanged. CONCLUSION: Chronic diverticular disease of the sigmoid colon. No acute findings. Fady Justin MD on September 12, 2016 at 13:02 Board Certified Radiologist. This report was verified electronically.
[2016-09-12] MEDS ORDERED: VANC250C2 PO (13:40)
[2016-09-12] MEDS ORDERED: VANCOMYCIN 500 MG VIAL (FOR ORAL USE ONLY) PO ONE (13:45)
[2016-09-12 13:50] VITALS: BP 146/95; PULSE 87; RESP 16; O2SAT 99
--- NOTE | 2016-09-28 14:46 | PD.CONS ---
History of Present Illness Service ID CONSULT DR CERVANTES Consult Requested By DR CHAVES Reason for Consult DIARRHEA H/O C DIFF COLITIS Primary Care Physician Yamil Collado, Diagnoses: (1) Colitis (2) Diarrhea (3) Abdominal pain (4) Dehydration History of Present Illness Pt adm with 3 days of diarrhea and abd pain. He was seen in July and diagnosised with cdiff colitis. He was home on a po vanco taper which was due to end today when wednesday he developed abd pain and cramping with diarrhea x 4hrs. He continued to have nausea and abd pain and yesterday decided to come in for evaluation. He denies fevers or chills. No blood in his stools. He was found to have some abd wall thickening on ct abd. He has not been on any abx. However on adm was started on flagyl and po vanco and zosyn. (Bhakti Whaetley ) History of Present Illness Recurrent diarrhea and abdominal pain Responded well to Vancomycin but symptoms recur when Vancomycin is tapered ( Debbie Cervantes MD) Review of Systems Constitutional: DENIES: Fever Endocrine: DENIES: Polyuria Eyes: DENIES: Eye pain Ears, nose, mouth, throat: DENIES: Nasal discharge Respiratory: DENIES: Hemoptysis Cardiovascular: DENIES: Dyspnea on Exertion Gastrointestinal: COMPLAINS OF: Diarrhea, DENIES: Constipation Genitourinary: DENIES: Urgency Integumentary: DENIES: Rash Hematologic/lymphatic: DENIES: Lymphadenopathy Immunologic/allergic: DENIES: Urticaria Neurologic: DENIES: Headache Psychiatric: DENIES: Confusion (Bhakti Wheatley) Past Family Social History Allergies: Coded Allergies: Bactrim (Verified Allergy, Severe, Diarrhea, 09/27/16) Codeine (Verified Allergy, Severe, RASH, 09/27/16) Levaquin (Verified Allergy, Severe, ACHILLES TENDON PROBLEM, 09/27/16) Past Medical History Past Medical History Arthritis Hypertension Anxiety Diverticulosis GERD History of alcohol withdrawal with seizures Past Surgical History Past Surgical History Rectal surgery for thrombosis Left ankle Achilles tendon surgery Prostate biopsy Left hip replacement Back surgery 2 Neck surgeryP Reported Medications Reported Medications Alprazolam 0.5 Mg Tab 0.5 Mg PO BID Amlodipine (Amlodipine Besylate) 5 Mg Tab 5 Mg PO DAILY Omeprazole 20 Mg Tab 20 Mg PO DAILY Lisinopril 20 Mg Tab 20 Mg PO DAILY Allergies: Coded Allergies: Bactrim (Verified Allergy, Severe, Diarrhea, 08/14/16) Codeine (Verified Allergy, Severe, RASH, 08/14/16) Levaquin (Verified Allergy, Severe, ACHILLES TENDON PROBLEM, 08/14/16) Family History Family History Patient does not know his father's history. Mother had congestive heart failure , dementia. Social History Social History Drinks 3-4 alcoholic beverages per day. Occasional marijuana use. Denies tobacco use. 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 Cool and dry. HEAD: Atraumatic. Normocephalic. No temporal or scalp tenderness. EYES: Pupils equal round and reactive. Extraocular motions intact. No scleral icterus. No injection or drainage. ENT: Nose without bleeding, purulent drainage or septal hematoma. Throat without erythema, tonsillar hypertrophy or exudate. Uvula midline. Airway patent. NECK: Trachea midline. No JVD or lymphadenopathy. Supple, nontender, no meningeal signs. CARDIOVASCULAR: Regular rate and rhythm without murmurs, gallops, or rubs. RESPIRATORY: Clear to auscultation. Breath sounds equal bilaterally. No wheezes , rales, or rhonchi. GASTROINTESTINAL: Abdomen soft, tender, distended. No hepato-splenomegaly, or palpable masses.mild guarding. MUSCULOSKELETAL: Extremities without clubbing, cyanosis, or edema. No joint tenderness, effusion, or edema noted. No calf tenderness. Negative Homans sign bilaterally. NEUROLOGICAL: Awake and alert. Cranial nerves II through XII intact. Motor and sensory grossly within normal limits. Five out of 5 muscle strength in all muscle groups. Normal speech. (Bhakti Wheatley) Physical Exam Alert, oriented x 3 No thrush Abdomen : soft , non tender , hyperactive bowel sounds (Debbie Cervantes MD) Assessment and Plan Problem List: (1) Dehydration Status: Acute (2) Clostridium difficile infection Status: Acute Plan: pt on flagyl with po vancomcyin he has been on several vancomycin courses in the past and now is failing taper thus stop po vanco start dificid monitor clinically with further follow up to occur. seen exam with Dr Cervantes (3) Abdominal pain Status: Acute (Bhakti Wheatley) Problem List: (1) Dehydration Status: Acute (2) Clostridium difficile infection Status: Acute Plan: pt on flagyl with po vancomcyin he has been on several vancomycin courses in the past and now is failing taper thus stop po vanco start dificid monitor clinically with further follow up to occur. seen exam with Dr Cervantes Plan as above Start Dificid 200 mg po bid x 10 days (3) Abdominal pain Status: Acute (Debbie Cervantes MD) Problem Qualifiers (1) Diarrhea: Qualified Code: A09 - Diarrhea of presumed infectious origin Bhakti Wheatley Sep 28, 2016 14:46 Debbie Cervantes MD Sep 28, 2016 15:26
== END 2016-09-12 13:55 | disposition home or self-care (01) ==
LOC: PHED 10:27
DX: A04.7 Enterocolitis due to Clostridium difficile (principal); N17.9 Acute kidney failure, unspecified; I10 Essential (primary) hypertension; Z96.642 Presence of left artificial hip joint; F10.10 Alcohol abuse, uncomplicated
CPT/HCPCS: 74177; 80053; 83690; 85025; 85610; 96361; 96374; 96375; 99284; C9113; J2405; J7030; Q9967

== ENCOUNTER 2016-09-27 17:03 | Inpatient (IN) | payer BC ==
[~2016-09-27] VITALS: Ht 175.3 cm; Wt 84.1 kg
[2016-09-27] VITALS (7 sets, daily range): BP systolic 140–150; BP diastolic 82–100; PULSE 91–120; RESP 16–20; TEMP 96.6–98.8; O2SAT 96–99
[2016-09-27] MEDS ORDERED: SODIUM CHLOR 0.9% 1000 ML INJ 1,000 ML IV SCH (17:32)
--- NOTE | 2016-09-27 17:40 | PD ---
HPI Chief Complaint: GI Complaint Time Seen by Provider: 17:21 Travel History International Travel<30 days: No Contact w/Intl Traveler<30days: No Traveled to known affect area: No History of Present Illness HPI Patient 61-year-old male with a history of C. difficile colitis presents emergency department left lower quadrant abdominal pain and diarrhea since last night. Patient states that when he was diagnosed with C. difficile he never actually had any diarrhea. He states she's been taking his vancomycin orally as prescribed. States that the pain the left lower quadrant started last night and gradually worsening. Mild nausea. Patient is secondary complaint of right shoulder pain states he think he slept on it wrong. Denies any injury. States he has a history of remote fracture. Denies any fevers. Denies any blood in the stool denies any emesis. 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 ) Asthma: No Autoimmune Disease: No Anxiety: Yes Depression: No Heart Rhythm Problems: No Cancer: No Cardiovascular Problems: Yes (HTN) High Cholesterol: No Chemotherapy: No Chest Pain: No Congestive Heart Failure: No COPD: No Cerebrovascular Accident: No Diabetes: No Diminished Hearing: No Diverticulitis: Yes Endocrine: No GERD: Yes Genitourinary: No Headaches: No Hiatal Hernia: No Heparin Induced Thrombocytopen: No Hypertension: Yes Immune Disorder: No Implanted Vascular Access Dvce: Yes Kidney Stones: No Musculoskeletal: Yes Neurologic: Yes Psychiatric: No Reproductive: No Respiratory: No Immunizations Current: Yes Migraines: No Pancreatitis: Yes Renal Failure: No Seizures: Yes (IN PAST R/T ALCOHOL WITHDRAWAL 2013) Sickle Cell Disease: No Sleep Apnea: No Thyroid Disease: No Ulcer: No Influenza Vaccination: Yes PNEUMOCCOCAL Vaccine (Year): 2 ?: Not Past Surgical History Abdominal Surgery: Yes (RECTAL SURGERY FOR RECTUM THROMBOSIS) AICD: No Arteriovenous Shunt: No Body Medical Devices: DISSOLVABLE SCREW IN LEFT ANKLE - placed 2014 Cardiac Surgery: No Ear Surgery: No Endocrine Surgery: No Eye Surgery: No Genitourinary Surgery: Yes (PROSTATE BIOPSY-NEGATIVE) Gynecologic Surgery: No Hysterectomy: No Insulin Pump: No Joint Replacement: Yes (left hip) Neurologic Surgery: No Oral Surgery: No Pacemaker: No Other Surgery: Yes (2 BACK AND ONE NECK SURGERIES) Social History Alcohol Use: Yes (3 TO 4 TIMES PER DAY) Tobacco Use: No Substance Use: Yes (marijuana) Allergies-Medications (Allergen,Severity, Reaction): Coded Allergies: Bactrim (Verified Allergy, Severe, Diarrhea, 09/27/16) Codeine (Verified Allergy, Severe, RASH, 09/27/16) Levaquin (Verified Allergy, Severe, ACHILLES TENDON PROBLEM, 09/27/16) Reported Meds & Prescriptions Reported Meds & Active Scripts Active Vancomycin (Vancomycin HCl) 250 Mg Cap 250 Mg PO QID Vancomycin (Vancomycin HCl) 250 Mg Cap 250 Mg PO QID 250mg PO QID x 2wks, then 250mg TID x 3wks, then 250mg BID x 2wks Reported Alprazolam 0.5 Mg Tab 0.5 Mg PO BID Amlodipine (Amlodipine Besylate) 5 Mg Tab 5 Mg PO DAILY Omeprazole 20 Mg Tab 20 Mg PO DAILY Lisinopril 20 Mg Tab 20 Mg PO DAILY Review of Systems Except as stated in HPI: all other systems reviewed are Neg Physical Exam Narrative GENERAL: Well-developed well-nourished, nontoxic appearance. SKIN: Focused skin assessment warm/dry. HEAD: Atraumatic. Normocephalic. EYES: Pupils equal and round. No scleral icterus. No injection or drainage. ENT: No nasal bleeding or discharge. Mucous membranes pink and moist. NECK: Trachea midline. No JVD. CARDIOVASCULAR: Regular rhythm with tachycardia. No murmur appreciated. 2+ bilateral equal pulses in all 4 extremity's. RESPIRATORY: No accessory muscle use. Clear to auscultation. Breath sounds equal bilaterally. GASTROINTESTINAL: Abdomen soft, minimally tender in left lower quadrant, minimally distended. Hepatic and splenic margins not palpable. Tympanic to percussion. MUSCULOSKELETAL: No obvious deformities. No clubbing. No cyanosis. No edema. NEUROLOGICAL: Awake and alert. No obvious cranial nerve deficits. Motor grossly within normal limits. Normal speech. PSYCHIATRIC: Appropriate mood and affect; insight and judgment normal. Data Data Last Documented VS Vital Signs Date Time Temp Pulse Resp B/P Pulse Ox O2 Delivery O2 Flow Rate FiO2 09/27/16 18:35 110 18 140/97 99 Room Air 09/27/16 17:14 98.8 Orders Complete Blood Count With Diff (09/27/16 17:32) Comprehensive Metabolic Panel (09/27/16 17:32) Lipase (09/27/16 17:32) Lactic Acid (09/27/16 17:32) Urinalysis - C+S If Indicated (09/27/16 17:32) Iv Access Insert/Monitor (09/27/16 17:32) Ecg Monitoring (09/27/16 17:32) Oximetry (09/27/16 17:32) Sodium Chlor 0.9% 1000 Ml Inj (Ns 1000 M (09/27/16 17:32) Sodium Chloride 0.9% Flush (Ns Flush) (09/27/16 17:45) Electrocardiogram (09/27/16 17:32) Troponin I (09/27/16 17:32) Isolation 08,20 (09/27/16 17:33) Ketorolac Inj (Toradol Inj) (09/27/16 18:00) Ondansetron Inj (Zofran Inj) (09/27/16 18:00) Ct Abd/Pel W Iv Contrast(Rout) (09/27/16 ) Iodixanol 320 Inj (Rad Ct) (Visipaque 32 (09/27/16 18:54) Labs Laboratory Tests Test 09/27/16 17:45 White Blood Count 15.6 TH/MM3 Red Blood Count 3.72 MIL/MM3 Hemoglobin 11.7 GM/DL Hematocrit 34.0 % Mean Corpuscular Volume 91.6 FL Mean Corpuscular Hemoglobin 31.5 PG Mean Corpuscular Hemoglobin 34.4 % Concent Red Cell Distribution Width 16.5 % Platelet Count 271 TH/MM3 Mean Platelet Volume 8.5 FL Neutrophils (%) (Auto) 74.2 % Lymphocytes (%) (Auto) 16.3 % Monocytes (%) (Auto) 7.6 % Eosinophils (%) (Auto) 0.6 % Basophils (%) (Auto) 1.3 % Neutrophils # (Auto) 11.6 TH/MM3 Lymphocytes # (Auto) 2.5 TH/MM3 Monocytes # (Auto) 1.2 TH/MM3 Eosinophils # (Auto) 0.1 TH/MM3 Basophils # (Auto) 0.2 TH/MM3 CBC Comment DIFF FINAL Differential Comment Urine Collection Type CLEAN CATCH Urine Color YELLOW Urine Turbidity CLEAR Urine pH 6.0 Urine Specific [place] 1.021 Urine Protein TRACE mg/dL Urine Glucose (UA) NEG mg/dL Urine Ketones 15 mg/dL Urine Occult Blood NEG Urine Nitrite NEG Urine Bilirubin NEG Urine Leukocyte Esterase SMALL Urine RBC 0-3 /hpf Urine WBC 6-8 /hpf Urine Amorphous Sediment FEW Microscopic Urinalysis Comment CULT NOT INDICATED Sodium Level 137 MEQ/L Potassium Level 3.7 MEQ/L Chloride Level 101 MEQ/L Carbon Dioxide Level 22.9 MEQ/L Anion Gap 13 MEQ/L Blood Urea Nitrogen 23 MG/DL Creatinine 1.80 MG/DL Estimat Glomerular Filtration 38 ML/MIN Rate Random Glucose 115 MG/DL Lactic Acid Level 1.1 mmol/L Calcium Level 9.2 MG/DL Total Bilirubin 0.8 MG/DL Aspartate Amino Transf 31 U/L (AST/SGOT) Alanine Aminotransferase 25 U/L (ALT/SGPT) Alkaline Phosphatase 74 U/L Troponin I LESS THAN 0.02 NG/ML Total Protein 8.4 GM/DL Albumin 3.9 GM/DL Lipase 232 U/L MDM Medical Decision Making Medical Screen Exam Complete: Yes Emergency Medical Condition: Yes Interpretation(s) EKG shows sinus tachycardia rate of 1:15, intervals otherwise within normal limits. Normal axis normal R-wave progression. No concerning ST T changes. This normal EKG except for rate Differential Diagnosis Colitis, diverticulitis, dehydration, acute kidney injury. Narrative Course Patient 61-year-old male roomed emergency department, initially tachycardic in 130s to 140s, he was given normal saline bolus and heart rate has declined to low 100s and high 90s. Lactic acid negative. He does have an elevated white blood cell count of 15,000 and on his last ER visit he was 13,000. He is being treated adequately for C. difficile. His lactic acid is negative which will negate the indication for further aggressive fluid boluses. Again he does have adequate antibiotics which she has been taking at home. At this point I will refer further management to medical team as well as his infectious disease officer Dr. Cervantes. Last 24 hours Impressions Abdomen/Pelvis CT 09/27/16 0000 Signed Impressions: Service Date/Time: Tuesday, September 27, 2016 18:42 - CONCLUSION: 1. Diverticulosis of the sigmoid colon. Underlying wall thickening could be related to mild degree of diverticulitis. No perforation or abscess. 2. Mild wall thickening of the urinary bladder, nonspecific. 3. Old left lower lateral rib fracture appears to be the eighth rib. Zeyad Denis MD Discussed with the patient his results and recommended that he be admitted for further hydration and consultation with Dr. Cervantes. He is agreeable. Diagnosis Primary Impression: SHAVONNE (acute kidney injury) Additional Impressions: Dehydration C. difficile colitis Admitting Information Admitting Physician Requests: Admit Condition: Stable Nilesh Smith MD Sep 27, 2016 17:40
[2016-09-27] MEDS ORDERED: SODIUM CHLORIDE 0.9% FLUSH 10 ML FLUSH IV FLUSH PRN ×2 (17:45→19:30)
[2016-09-27 17:56] LABS: BLOOD, URINE NEG (NEG); GLUCOSE,URINE NEG (NEG); KETONE, URINE 15 mg/dL (NEG); NITRITE,URINE NEG (NEG)
[2016-09-27] MEDS ORDERED: KETOROLAC TROMETHAMINE 30 MG/ML (IVP) VIAL IV PUSH ONE (18:00)
[2016-09-27] MEDS ORDERED: ONDANSETRON HCL 4 MG/2 ML VIAL IV PUSH ONE (18:00)
[2016-09-27 18:02] LABS: AUTOMATED NEUTROPHIL # 11.6 TH/MM3 (1.8-7.7); BASOPHIL # 0.2 TH/MM3 (0-0.2); BASOPHIL % 1.3 % (0.0-2.0); EOSINOPHIL # 0.1 TH/MM3 (0-0.4); EOSINOPHIL % 0.6 % (0.0-4.0); HEMO FLAGS DIFF FINAL; LYMPH % 16.3 % (9.0-44.0); LYMPHOCYTE # 2.5 TH/MM3 (1.0-4.8); MEAN CELL VOLUME 91.6 FL (80.0-100.0); MEAN CORPUSCULAR HEMOGLOBIN 31.5 PG (27.0-34.0); MEAN CORPUSCULAR HGB CONC 34.4 % (32.0-36.0); MONO % 7.6 % (0.0-8.0); NEUT % 74.2 % (16.0-70.0); PLATELET COUNT 271 TH/MM3 (150-450); RED BLOOD COUNT 3.72 MIL/MM3 (4.50-5.90); RED CELL DISTRIBUTION WIDTH 16.5 % (11.6-17.2); WHITE BLOOD COUNT 15.6 TH/MM3 (4.0-11.0)
[2016-09-27 18:03] LABS: METHOD OF COLLECTION CLEAN CATCH; URINE COLOR YELLOW (YELLW/STRAW)
[2016-09-27 18:04] LABS: CHLORIDE 101 MEQ/L (98-107); COMMENT (UR) CULT NOT INDICATED; CULTURE IF INDICATED CULT NOT INDICATED; POTASSIUM 3.7 MEQ/L (3.5-5.1); RBC, URINE 0-3 /hpf (0-3); SODIUM (NA) 137 MEQ/L (136-145)
[2016-09-27 18:09] LABS: ANION GAP 13 MEQ/L (5-15); BICARBONATE 22.9 MEQ/L (21.0-32.0); BLOOD UREA NITROGEN 23 MG/DL (7-18)
[2016-09-27 18:12] LABS: ALT (GPT) 25 U/L (12-78); AST (GOT) 31 U/L (15-37); GLOMERULAR FILTRATION RATE 38 ML/MIN (>89)
[2016-09-27 18:14] LABS: TOTAL BILIRUBIN ADULT 0.8 MG/DL (0.2-1.0)
[2016-09-27 18:15] LABS: ALKALINE PHOSPHATASE 74 U/L (45-117)
[2016-09-27] MEDS ORDERED: IODIXANOL 320 MG/ML 10 ML VIAL (for Rad CT) IV ONE (18:54)
--- NOTE | 2016-09-27 19:12 | RADHPO ---
EXAM DATE/TIME: 09/27/2016 18:42 [facility] COMPARISON: No previous studies available for comparison. INDICATIONS : Left lower quadrant pain since last night. IV CONTRAST: 50 cc Visipaque (iodixanol) IV ORAL CONTRAST: No oral contrast ingested. RADIATION DOSE: 9.10 CTDIvol (mGy) MEDICAL HISTORY : Hypertension. Gastroesophageal reflux disease. SURGICAL HISTORY : None. ENCOUNTER: Initial ACUITY: 2 days PAIN SCALE: 5/10 LOCATION: Left lower quadrant TECHNIQUE: Volumetric scanning of the abdomen and pelvis was performed. Using automated exposure control and adjustment of the mA and/or kV according to patient size, radiation dose was kept as low as reasonably achievable to obtain optimal diagnostic quality images. FINDINGS: LOWER LUNGS: Old lower lateral rib fracture. LIVER: Homogeneous density without lesion. There is no dilation of the biliary tree. No calcifi ed gallstones. SPLEEN: Normal size without lesion. PANCREAS: Within normal limits. KIDNEYS: Normal in size and shape. There is no mass, stone or hydronephrosis. ADRENAL GLANDS: Within normal limits. VASCULAR: There is no aortic aneurysm. BOWEL/MESENTERY: Diverticulosis of the sigmoid colon with associated wall thickening. There is n o free intraperitoneal air or fluid. ABDOMINAL WALL: Within normal limits. RETROPERITONEUM: There is no lymphadenopathy. BLADDER: Mild bladder wall thickening anteriorly. REPRODUCTIVE: Within normal limits. INGUINAL: There is no lymphadenopathy or hernia. MUSCULOSKELETAL: Left hip prosthesis.. CONCLUSION: 1. Diverticulosis of the sigmoid colon. Underlying wall thickening could be related to mild degree of diverticulitis. No perforation or abscess. 2. Mild wall thickening of the urinary bladder, nonspecific. 3. Old left lower lateral rib fracture appears to be the eighth rib. Zeyad Denis MD on September 27, 2016 at 19:07 Board Certified Radiologist. This report was verified electronically.
[2016-09-27] MEDS ORDERED: LACTULOSE SYRUP 20 GM/30 ML CUP PO PRN (19:30)
[2016-09-27] MEDS ORDERED: BISACODYL 10 MG SUPP RECTAL PRN (19:30)
[2016-09-27] MEDS ORDERED: SENNOSIDES 8.6 MG TAB PO PRN (19:30)
[2016-09-27] MEDS ORDERED: ACETAMINOPHEN 325 MG TAB PO PRN (19:30)
[2016-09-27] MEDS ORDERED: ONDANSETRON HCL 4 MG/2 ML VIAL IVP PRN (19:30)
[2016-09-27] MEDS ORDERED: MAGNESIUM HYDROXIDE SUSP 30 ML CUP PO PRN (19:30)
[2016-09-27] MEDS ORDERED: DOCUSATE SODIUM 50 MG/SENNA 8.6 MG TAB PO SCH (21:00)
[2016-09-27] MEDS: PIPERACIL-TAZO 2.25 GM PREMIX 50 ML IV SCH (21:11)
[2016-09-27] MEDS: SODIUM CHLOR 0.9% 1000 ML INJ 1,000 ML IV SCH (21:11)
[2016-09-27] MEDS: SODIUM CHLORIDE 0.9% FLUSH 10 ML FLUSH IV FLUSH SCH (21:12)
[2016-09-27] MEDS: ALPRAZolam 0.5 MG TAB PO SCH (21:13)
[2016-09-27] MEDS: VANCOMYCIN 500 MG VIAL (FOR ORAL USE ONLY) PO SCH (21:13)
[2016-09-27] MEDS: MORPHINE SULFATE 4 MG/ML INJ IV PRN (21:14)
[2016-09-28] VITALS (7 sets, daily range): BP systolic 121–153; BP diastolic 88–106; PULSE 62–107; RESP 17–20; TEMP 97.4–98; O2SAT 96–99
[2016-09-28] MEDS: MORPHINE SULFATE 4 MG/ML INJ IV PRN ×5 (00:14→19:52)
[2016-09-28] MEDS: PIPERACIL-TAZO 2.25 GM PREMIX 50 ML IV SCH (01:08)
[2016-09-28] MEDS: SODIUM CHLOR 0.9% 1000 ML INJ 1,000 ML IV SCH ×2 (05:06→16:30)
[2016-09-28 06:03] LABS: AUTOMATED NEUTROPHIL # 6.1 TH/MM3 (1.8-7.7); BASOPHIL # 0.1 TH/MM3 (0-0.2); BASOPHIL % 0.6 % (0.0-2.0); EOSINOPHIL # 0.2 TH/MM3 (0-0.4); HEMATOCRIT 28.8 % (39.0-51.0); HEMO FLAGS DIFF FINAL; LYMPH % 19.5 % (9.0-44.0); LYMPHOCYTE # 1.8 TH/MM3 (1.0-4.8); MEAN CELL VOLUME 91.7 FL (80.0-100.0); MEAN CORPUSCULAR HEMOGLOBIN 30.6 PG (27.0-34.0); MEAN CORPUSCULAR HGB CONC 33.3 % (32.0-36.0); MONO % 8.7 % (0.0-8.0); NEUT % 69.2 % (16.0-70.0); PLATELET COUNT 225 TH/MM3 (150-450); RED BLOOD COUNT 3.14 MIL/MM3 (4.50-5.90); RED CELL DISTRIBUTION WIDTH 16.5 % (11.6-17.2)
[2016-09-28 06:05] LABS: CHLORIDE 106 MEQ/L (98-107); POTASSIUM 4.4 MEQ/L (3.5-5.1); SODIUM (NA) 141 MEQ/L (136-145)
[2016-09-28 06:20] LABS: ALKALINE PHOSPHATASE 59 U/L (45-117); ALT (GPT) 20 U/L (12-78); ANION GAP 9 MEQ/L (5-15); AST (GOT) 22 U/L (15-37); BICARBONATE 26.3 MEQ/L (21.0-32.0); BLOOD UREA NITROGEN 22 MG/DL (7-18); GLOMERULAR FILTRATION RATE 41 ML/MIN (>89); TOTAL BILIRUBIN ADULT 0.7 MG/DL (0.2-1.0)
[2016-09-28] MEDS ORDERED: HYDROmorphone HCL 2 MG TAB PO PRN (07:45)
[2016-09-28] MEDS ORDERED: LORazepam 2 MG/ML VIAL IV PUSH PRN ×4 (07:45)
[2016-09-28] MEDS ORDERED: metroNIDAZOLE 500 MG TAB PO SCH (07:45)
[2016-09-28] MEDS ORDERED: LORazepam 2 MG TAB PO PRN (07:45)
[2016-09-28] MEDS ORDERED: FLUMAZENIL 0.5 MG/5 ML VIAL IV PUSH PRN (07:45)
[2016-09-28] MEDS ORDERED: HALOPERIDOL LACTATE 5 MG/ML AMP IM PRN (07:45)
[2016-09-28] MEDS ORDERED: LORazepam 1 MG TAB PO PRN (07:45)
[2016-09-28] MEDS: ALPRAZolam 0.5 MG TAB PO SCH ×2 (08:18→19:51)
[2016-09-28] MEDS: amLODIPine BESYLATE 5 MG TAB PO SCH (08:19)
[2016-09-28] MEDS ORDERED: PILL SPLITTER OTHER PRN (08:30)
[2016-09-28] MEDS ORDERED: PANTOPRAZOLE SOD 20 MG DELAYED RELEASE TAB PO SCH (09:00)
[2016-09-28] MEDS ORDERED: FAMOTIDINE 20 MG TAB PO SCH (09:00)
[2016-09-28] MEDS: FOLIC ACID 1 MG TAB PO SCH (09:31)
[2016-09-28] MEDS: LACTOBACILLUS ACIDOPHILUS TAB PO SCH ×3 (09:31→17:38)
[2016-09-28] MEDS: MULTIVITAMINS/MINERALS THERAPEUTIC TAB PO SCH (09:31)
[2016-09-28] MEDS: SODIUM CHLORIDE 0.9% FLUSH 10 ML FLUSH IV FLUSH SCH ×2 (09:32→19:50)
[2016-09-28] MEDS: THIAMINE HCL 100 MG TAB PO SCH (09:32)
--- NOTE | 2016-09-28 09:58 | HHI.HP ---
HPI Service [facility] Primary Care Physician Yamil Collado, DO Admission Diagnosis CDiff, Dehydration, Possible superimposed diverticulitis. Diagnoses: Chief Complaint: Abdominal pain Travel History International Travel<30 Days: No Contact w/Intl Traveler <30 Da: No Traveled to Known Affected Are: No Sepsis Criteria SIRS Criteria (2 or more): Heart rate over 90, WBC > 17061, < 4000 or > 10% bands Sepsis Criteria (SIRS+source): Infect source susp/known Criteria Outcome: Meets sepsis criteria History of Present Illness This is a 61-year-old male with a history of recurrent C. difficile colitis who just completed tapering vancomycin for over 7 weeks yesterday, hypertension, GERD, alcohol withdrawal seizures, anxiety and arthritis. He presents to the emergency department complaining of worsening constant sharp severe lower quadrant pain past 2 days associated with nausea, diarrhea 6 episodes. Stools described as nonbloody and nonmucoid. States he completed vancomycin yesterday. No fever but complained of chills. No UTI symptoms. CT of the abdomen and pelvis showed diverticulosis with thickening of the sigmoid. He has history of diverticulitis and was placed on Levaquin which caused tendon rupture and C. difficile. Overnight he was started on IV Zosyn and by mouth vancomycin. C. difficile is pending. This morning patient states he is feeling better with improved abdominal pain, nausea and diarrhea. States he he can't tolerate intravenous Flagyl but not by mouth cause of nausea. All other systems reviewed negative Review of Systems Except as stated in HPI: all other systems reviewed are Neg Past Family Social History Past Medical History As previously mentioned Past Surgical History Rectal surgery for thrombosis, screws placed in the left ankle, prostate biopsy , left hip replacement and neck surgeries Reported Medications Just completed tapering vancomycin Vancomycin (Vancomycin HCl) 250 Mg Cap 250 Mg PO QID 250mg PO QID x 2wks, then 250mg TID x 3wks, then 250mg BID x 2wks Alprazolam 0.5 Mg Tab 0.5 Mg PO BID Amlodipine (Amlodipine Besylate) 5 Mg Tab 5 Mg PO DAILY Omeprazole 20 Mg Tab 20 Mg PO DAILY Lisinopril 20 Mg Tab 20 Mg PO DAILY Allergies: Coded Allergies: Bactrim (Verified Allergy, Severe, Diarrhea, 09/27/16) Codeine (Verified Allergy, Severe, RASH, 09/27/16) Levaquin (Verified Allergy, Severe, ACHILLES TENDON PROBLEM, 09/27/16) Family History No CAD or GI cancer Social History Has cut back on drinking down to drinking cocktails twice a week, does not smoke. Abuses marijuana Physical Exam Vital Signs Vital Signs Date Time Temp Pulse Resp B/P Pulse Ox O2 Delivery O2 Flow Rate FiO2 09/28/16 08:23 16 09/28/16 08:00 98.0 74 17 126/90 98 09/28/16 00:00 97.4 88 18 121/88 96 09/27/16 21:35 86 20 141/89 96 09/27/16 21:25 96.6 95 18 145/82 96 09/27/16 20:13 98.2 91 20 140/100 96 09/27/16 20:13 20 09/27/16 18:35 110 18 140/97 99 Room Air 09/27/16 18:34 18 09/27/16 17:51 116 18 146/99 97 Room Air 09/27/16 17:24 150/88 09/27/16 17:14 98.8 120 16 97 Physical Exam GENERAL: This is a well-nourished, well-developed patient, in no apparent distress. SKIN: No rashes, ecchymoses or lesions. Cool and dry. HEAD: Atraumatic. Normocephalic. No temporal or scalp tenderness. EYES: Pupils equal round and reactive. Extraocular motions intact. No scleral icterus. No injection or drainage. ENT: Nose without bleeding, purulent drainage or septal hematoma. Throat without erythema, tonsillar hypertrophy or exudate. Uvula midline. Airway patent. NECK: Trachea midline. No JVD or lymphadenopathy. Supple, nontender, no meningeal signs. CARDIOVASCULAR: Regular rate and rhythm without murmurs, gallops, or rubs. RESPIRATORY: Clear to auscultation. Breath sounds equal bilaterally. No wheezes , rales, or rhonchi. GASTROINTESTINAL: Abdomen soft, tender lower quadrant areas worse on the left lower and mild abdominal distention. No guarding. MUSCULOSKELETAL: Extremities without clubbing, cyanosis, or edema. No joint tenderness, effusion, or edema noted. No calf tenderness. Negative Homans sign bilaterally. NEUROLOGICAL: Awake and alert. Cranial nerves II through XII intact. Motor and sensory grossly within normal limits. Five out of 5 muscle strength in all muscle groups. Normal speech. Laboratory Laboratory Tests Test 09/27/16 09/28/16 17:45 05:01 White Blood Count 15.6 9.0 Red Blood Count 3.72 3.14 Hemoglobin 11.7 9.6 Hematocrit 34.0 28.8 Mean Corpuscular Volume 91.6 91.7 Mean Corpuscular Hemoglobin 31.5 30.6 Mean Corpuscular Hemoglobin 34.4 33.3 Concent Red Cell Distribution Width 16.5 16.5 Platelet Count 271 225 Mean Platelet Volume 8.5 8.8 Neutrophils (%) (Auto) 74.2 69.2 Lymphocytes (%) (Auto) 16.3 19.5 Monocytes (%) (Auto) 7.6 8.7 Eosinophils (%) (Auto) 0.6 2.0 Basophils (%) (Auto) 1.3 0.6 Neutrophils # (Auto) 11.6 6.1 Lymphocytes # (Auto) 2.5 1.8 Monocytes # (Auto) 1.2 0.8 Eosinophils # (Auto) 0.1 0.2 Basophils # (Auto) 0.2 0.1 CBC Comment DIFF FINAL DIFF FINAL Differential Comment Urine Collection Type CLEAN CATCH Urine Color YELLOW Urine Turbidity CLEAR Urine pH 6.0 Urine Specific [place] 1.021 Urine Protein TRACE Urine Glucose (UA) NEG Urine Ketones 15 Urine Occult Blood NEG Urine Nitrite NEG Urine Bilirubin NEG Urine Leukocyte Esterase SMALL Urine RBC 0-3 Urine WBC 6-8 Urine Amorphous Sediment FEW Microscopic Urinalysis Comment CULT NOT INDICATED Sodium Level 137 141 Potassium Level 3.7 4.4 Chloride Level 101 106 Carbon Dioxide Level 22.9 26.3 Anion Gap 13 9 Blood Urea Nitrogen 23 22 Creatinine 1.80 1.70 Estimat Glomerular Filtration 38 41 Rate Random Glucose 115 86 Lactic Acid Level 1.1 Calcium Level 9.2 7.8 Total Bilirubin 0.8 0.7 Aspartate Amino Transf 31 22 (AST/SGOT) Alanine Aminotransferase 25 20 (ALT/SGPT) Alkaline Phosphatase 74 59 Troponin I LESS THAN 0.02 Total Protein 8.4 6.6 Albumin 3.9 3.2 Lipase 232 Result Diagram: 09/28/16 0501 09/28/16 0501 Imaging EKG tracing interpreted by me with sinus tachycardia with Q wave in the lead 3 no significant change from previous except rate Last Impressions Abdomen/Pelvis CT 09/27/16 0000 Signed Impressions: Service Date/Time: Tuesday, September 27, 2016 18:42 - CONCLUSION: 1. Diverticulosis of the sigmoid colon. Underlying wall thickening could be related to mild degree of diverticulitis. No perforation or abscess. 2. Mild wall thickening of the urinary bladder, nonspecific. 3. Old left lower lateral rib fracture appears to be the eighth rib. Zeyad Denis MD Assessment and Plan Problem List: (1) Abdominal pain ICD Code: R10.9 Status: Acute (2) Leukocytosis ICD Code: D72.829 Status: Resolved (3) SIRS (systemic inflammatory response syndrome) ICD Code: R65.10 Status: Acute (4) Sepsis ICD Code: A41.9 Status: Acute (5) SHAVONNE (acute kidney injury) ICD Code: N17.9 Status: Resolved Assessment and Plan This is a 61-year-old male who presents to the emergency department complaining of worsening constant sharp severe lower quadrant pain past 2 days associated with nausea, diarrhea 6 episodes. Stools described as nonbloody and nonmucoid. States he completed tapering vancomycin for recurrent C. difficile. CT of the abdomen and pelvis showed diverticulosis with thickening of the sigmoid. C. difficile is pending. Left lower quadrant pain associated with nausea and diarrhea with a history of recurrent C. difficile and diverticulitis. Possible recurrent epiglottitis versus C. difficile. Discontinue IV Zosyn and start IV Flagyl. Continue vancomycin. Follow-up C. difficile. Pain management with Dilaudid and IV morphine. Counseled regarding narcotics. Consult infectious disease. Discontinue PPI Sepsis secondary to above. Monitor Acute on chronic kidney disease stage II secondary to dehydration and above. Continue IV hydration. Avoid nephrotoxins. Repeat BMP and magnesium in the morning. Discontinue PPI Anemia likely dilutional. No gross bleeding. Repeat CBC in the morning Thickening of the urinary bladder. Urinalysis shows 8 WBC. Patient already on antimicrobials. Outpatient follow-up Chronic medical conditions of hypertension, GERD, alcohol withdrawal seizures, anxiety and arthritis. Continue outpatient medications as appropriate. Alcohol cessation. CIWA protocol DVT prophylaxis with SCD and early ambulation Discussed Condition With Patient and nursing staff Physician Certification 2 Midnight Certification Type: Admission for Inpatient Services Order for Inpatient Services The services are ordered in accordance with Medicare regulations or non- Medicare payer requirements, as applicable. In the case of services not specified as inpatient-only, they are appropriately provided as inpatient services in accordance with the 2-midnight benchmark. Estimated LOS (days): 2 days is the estimated time the patient will need to remain in the hospital, assuming treatment plan goals are met and no additional complications. Post-Hospital Plan: Home AbandKashif kinney MD Sep 28, 2016 09:57
[2016-09-28] MEDS: metroNIDAZOLE 500 MG INJ 100 ML IV SCH ×3 (10:57→21:04)
[2016-09-28] MEDS: VANCOMYCIN 500 MG VIAL (FOR ORAL USE ONLY) PO SCH (11:01)
--- NOTE | 2016-09-28 11:17 | EKG ---
Date Performed: 09/27/2016 Time Performed: 17:33:56 PTAGE: 61 years EKG: Sinus tachycardia Normal ECG except for rate Compared to prior tracing no significant amber sethi PREVIOUS TRACING : 04/17/2016 08.39 DOCTOR: Karl Newton Interpretating Date/Time 09/28/2016 11:16:09
[2016-09-28] MEDS: MAGNESIUM SULFATE 1 GM PREMIX 100 ML IV SCH (13:30)
[2016-09-28] MEDS: FIDAXOMICIN 200 MG TAB PO SCH (19:50)
[2016-09-28] MEDS: FAMOTIDINE 20 MG TAB PO SCH (19:51)
[2016-09-29] VITALS: BP 146/93; PULSE 91; RESP 20; TEMP 99; O2SAT 99
[2016-09-29] MEDS: SODIUM CHLOR 0.9% 1000 ML INJ 1,000 ML IV SCH ×2 (03:24→14:49)
[2016-09-29] MEDS: metroNIDAZOLE 500 MG INJ 100 ML IV SCH ×4 (03:24→21:00)
[2016-09-29 04:00] VITALS: BP 186/105; PULSE 92; RESP 20; TEMP 96.8; O2SAT 99
[2016-09-29 06:25] LABS: AUTOMATED NEUTROPHIL # 4.7 TH/MM3 (1.8-7.7); BASOPHIL # 0.1 TH/MM3 (0-0.2); BASOPHIL % 0.7 % (0.0-2.0); EOSINOPHIL # 0.3 TH/MM3 (0-0.4); EOSINOPHIL % 3.4 % (0.0-4.0); HEMATOCRIT 29.8 % (39.0-51.0); HEMO FLAGS DIFF FINAL; LYMPH % 21.4 % (9.0-44.0); LYMPHOCYTE # 1.6 TH/MM3 (1.0-4.8); MEAN CELL VOLUME 93.9 FL (80.0-100.0); MEAN CORPUSCULAR HEMOGLOBIN 30.6 PG (27.0-34.0); MEAN CORPUSCULAR HGB CONC 32.6 % (32.0-36.0); MONO % 13.3 % (0.0-8.0); NEUT % 61.2 % (16.0-70.0); PLATELET COUNT 203 TH/MM3 (150-450); RED BLOOD COUNT 3.17 MIL/MM3 (4.50-5.90); RED CELL DISTRIBUTION WIDTH 17.2 % (11.6-17.2); WHITE BLOOD COUNT 7.7 TH/MM3 (4.0-11.0)
[2016-09-29 06:44] LABS: BICARBONATE 23.2 MEQ/L (21.0-32.0); MAGNESIUM 0.5 MG/DL (1.5-2.5); POTASSIUM 3.3 MEQ/L (3.5-5.1)
[2016-09-29] MEDS ORDERED: POTASSIUM CHLORIDE 20 MEQ CONTROLLED RELEASE TAB PO ONE (08:00)
[2016-09-29] MEDS ORDERED: cloNIDine HCL 0.1 MG TAB PO PRN (08:00)
[2016-09-29] MEDS ORDERED: ENALAPRILAT 1.25 MG/ML VIAL IV PRN (08:00)
[2016-09-29] MEDS: MULTIVITAMINS/MINERALS THERAPEUTIC TAB PO SCH (08:14)
[2016-09-29] MEDS: SODIUM CHLORIDE 0.9% FLUSH 10 ML FLUSH IV FLUSH SCH ×2 (08:14→21:00)
[2016-09-29 08:15] VITALS: BP 164/112; PULSE 110; RESP 18; TEMP 98; O2SAT 100
[2016-09-29] MEDS: LACTOBACILLUS ACIDOPHILUS TAB PO SCH ×3 (08:15→17:52)
[2016-09-29] MEDS: amLODIPine BESYLATE 5 MG TAB PO SCH (08:15)
[2016-09-29] MEDS: FAMOTIDINE 20 MG TAB PO SCH ×2 (08:15→20:58)
[2016-09-29] MEDS: THIAMINE HCL 100 MG TAB PO SCH (08:15)
[2016-09-29] MEDS: FOLIC ACID 1 MG TAB PO SCH (08:15)
[2016-09-29] MEDS: FIDAXOMICIN 200 MG TAB PO SCH ×2 (08:15→20:57)
[2016-09-29] MEDS: ALPRAZolam 0.5 MG TAB PO SCH ×2 (08:15→20:58)
[2016-09-29] MEDS: MAGNESIUM SULFATE 1 GM PREMIX 100 ML IV ONE ×2 (08:36→10:31)
[2016-09-29] MEDS: cloNIDine HCL 0.1 MG TAB PO SCH ×2 (08:37→20:58)
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
--- NOTE | 2016-09-29 11:13 | HHI.DCPOC ---
Discharge Care Plan Diagnosis: (1) Dehydration (2) Abdominal pain Your Health Problems Are: Difficulty with ADL Exercise Tolerance Goals to Promote Your Health * To prevent worsening of your condition and complications * To maintain your health at the optimal level Directions to Meet Your Goals Take your medications as prescribed Follow your dietary instruction Follow activity as directed Keep your appointments as scheduled Take your immunizations and boosters as scheduled If your symptoms worsen call your PCP, if no PCP go to Urgent Care Center or Emergency Room Smoking is Dangerous to Your Health. Avoid second hand smoke Call the 24-hour hour crisis hotline for domestic abuse at Kashif Barrett MD Sep 29, 2016 11:12
[2016-09-29] MEDS ORDERED: LACT PO (11:16)
[2016-09-29] MEDS ORDERED: CLON.1 PO (11:16)
[2016-09-29] MEDS ORDERED: GNP100TA3 PO (11:16)
[2016-09-29] MEDS: MAGNESIUM SULFATE 1 GM PREMIX 100 ML IV SCH (11:45)
[2016-09-29] MEDS: MORPHINE SULFATE 4 MG/ML INJ IV PRN (11:52)
[2016-09-29 12:00] VITALS: BP 126/82; PULSE 98; RESP 18; TEMP 98.8; O2SAT 99
[2016-09-29 12:08] LABS: C. DIFF EPI 027 PRESUMPTIVE NEGATIVE (NEGATIVE); C. DIFF TOXIN PCR NEGATIVE (NEGATIVE)
--- NOTE | 2016-09-29 15:46 | PD.CONS ---
History of Present Illness Service ID CONSULT DR NESBITT LATE ENTRY SEEN 09/28/16 @ 1400 Consult Requested By Reason for Consult RECURRENT DIARRHEA Primary Care Physician Yamil Collado DO Diagnoses: (1) Leucocytosis (2) Diarrhea (3) Abdominal pain (4) Clostridium difficile infection History of Present Illness 61 Y/O MALE ADM WITH ABD PAIN AND DIARRHEA. HE WAS SEEN IN ER A FEW WEEKS AGO AFTER HE STARTED TO TAPER THE ORAL VANCOMYCIN. IT CAUSED HIM TO START HAVING DIARRHEA AGAIN, WE INCREASED THE VANCOMYCIN BACK UP TO 250MG PO QID AND HE WAS SENT HOME. HE WAS SET TO FINISH THE TAPER TODAY HOWEVER WEDNESDAY HE STARTED TO HAVE INCREASE DIARRHEA AND ABD PAIN AGAIN. HE CONTINUED TO WORSENED AND WEDNESDAY HE CAME IN FOR EVALUATION AND TREATMENT. HE IS NOT ABLE TO HAVE A BOWEL MOVEMENT NOW. HE IS FEELING BETTER SINCE HYDRATION. Review of Systems Constitutional: COMPLAINS OF: Chills, DENIES: Weight loss Eyes: DENIES: Eye pain Cardiovascular: DENIES: Dyspnea on Exertion Gastrointestinal: COMPLAINS OF: Abdominal pain, Diarrhea, DENIES: Bloody stools Genitourinary: DENIES: Sexual dysfunction Musculoskeletal: DENIES: Joint Swelling Integumentary: DENIES: Pruritus Past Family Social History Allergies: Coded Allergies: Bactrim (Verified Allergy, Severe, Diarrhea, 09/27/16) Codeine (Verified Allergy, Severe, RASH, 09/27/16) Levaquin (Verified Allergy, Severe, ACHILLES TENDON PROBLEM, 09/27/16) Past Medical History Past Medical History Hx Anticoagulant Therapy: No Arthritis: Yes (IN BILAT. SHOULDERS ) Asthma: No Autoimmune Disease: No Anxiety: Yes Depression: No Heart Rhythm Problems: No Cancer: No Cardiovascular Problems: Yes (HTN) High Cholesterol: No Chemotherapy: No Chest Pain: No Congestive Heart Failure: No COPD: No Cerebrovascular Accident: No Diabetes: No Diminished Hearing: No Diverticulitis: Yes Endocrine: No GERD: Yes Genitourinary: No Headaches: No Hiatal Hernia: No Heparin Induced Thrombocytopen: No Hypertension: Yes Immune Disorder: No Implanted Vascular Access Dvce: Yes Kidney Stones: No Musculoskeletal: Yes Neurologic: Yes Psychiatric: No Reproductive: No Respiratory: No Immunizations Current: Yes Migraines: No Pancreatitis: Yes Renal Failure: No Seizures: Yes (IN PAST R/T ALCOHOL WITHDRAWAL 2013) Sickle Cell Disease: No Sleep Apnea: No Thyroid Disease: No Ulcer: No Influenza Vaccination: Yes PNEUMOCCOCAL Vaccine (Year): 2 ?: Not Past Surgical History Past Surgical History Abdominal Surgery: Yes (RECTAL SURGERY FOR RECTUM THROMBOSIS) AICD: No Arteriovenous Shunt: No Body Medical Devices: DISSOLVABLE SCREW IN LEFT ANKLE - placed 2014 Cardiac Surgery: No Ear Surgery: No Endocrine Surgery: No Eye Surgery: No Genitourinary Surgery: Yes (PROSTATE BIOPSY-NEGATIVE) Gynecologic Surgery: No Hysterectomy: No Insulin Pump: No Joint Replacement: Yes (left hip) Neurologic Surgery: No Oral Surgery: No Pacemaker: No Other Surgery: Yes (2 BACK AND ONE NECK SURGERIES) Family History NONE CONTRIBUTORY Social History + ETOH BEER 3-4 A DAY + [employer]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 SKIN: No rashes, ecchymoses or lesions. Cool and dry. HEAD: Atraumatic. Normocephalic. No temporal or scalp tenderness. EYES: Pupils equal round and reactive. Extraocular motions intact. No scleral icterus. No injection or drainage. ENT: Nose without bleeding, purulent drainage or septal hematoma. Throat without erythema, tonsillar hypertrophy or exudate. Uvula midline. Airway patent. NECK: Trachea midline. No JVD or lymphadenopathy. Supple, nontender, no meningeal signs. CARDIOVASCULAR: Regular rate and rhythm without murmurs, gallops, or rubs. RESPIRATORY: Clear to auscultation. Breath sounds equal bilaterally. No wheezes , rales, or rhonchi. GASTROINTESTINAL: Abdomen soft, non-tender, nondistended. No hepato-splenomegaly , or palpable masses. No guarding. MUSCULOSKELETAL: Extremities without clubbing, cyanosis, or edema. No joint tenderness, effusion, or edema noted. No calf tenderness. Negative Homans sign bilaterally. NEUROLOGICAL: Awake and alert. Cranial nerves II through XII intact. Motor and sensory grossly within normal limits. Five out of 5 muscle strength in all muscle groups. Normal speech. Laboratory Laboratory Tests Test 09/29/16 09/29/16 05:25 05:37 Stool C. difficile Toxin (PCR) NEGATIVE Stl C. difficile Toxin PRESUMPTIVE Epiderm 027 NEGATIVE White Blood Count 7.7 Red Blood Count 3.17 Hemoglobin 9.7 Hematocrit 29.8 Mean Corpuscular Volume 93.9 Mean Corpuscular Hemoglobin 30.6 Mean Corpuscular Hemoglobin 32.6 Concent Red Cell Distribution Width 17.2 Platelet Count 203 Mean Platelet Volume 9.4 Neutrophils (%) (Auto) 61.2 Lymphocytes (%) (Auto) 21.4 Monocytes (%) (Auto) 13.3 Eosinophils (%) (Auto) 3.4 Basophils (%) (Auto) 0.7 Neutrophils # (Auto) 4.7 Lymphocytes # (Auto) 1.6 Monocytes # (Auto) 1.0 Eosinophils # (Auto) 0.3 Basophils # (Auto) 0.1 CBC Comment DIFF FINAL Differential Comment Sodium Level 141 Potassium Level 3.3 Chloride Level 106 Carbon Dioxide Level 23.2 Anion Gap 12 Blood Urea Nitrogen 10 Creatinine 1.10 Estimat Glomerular Filtration 68 Rate Random Glucose 89 Calcium Level 8.2 Magnesium Level 0.5 Result Diagram: 09/29/1653609/29/16536 Assessment and Plan Problem List: (1) Alcohol abuse Status: Acute (2) Clostridium difficile infection Status: Acute Plan: GIVEN HISTORY OF RECURRENCE PT ON VANCOMYCIN WILL STOP AND START DIFICID ON FLAGYL WILL MONITOR AND FU SEEN EXAM WITH DR NESBITT (3) Dehydration Status: Acute (4) Abdominal pain Status: Acute Bhakti Wheatley Sep 29, 2016 15:45
[2016-09-29 16:00] VITALS: BP 134/94; PULSE 81; RESP 18; TEMP 97.6; O2SAT 100
[2016-09-29 16:13] LABS: POTASSIUM 3.6 MEQ/L (3.5-5.1)
[2016-09-29 16:16] LABS: BICARBONATE 23.7 MEQ/L (21.0-32.0)
[2016-09-29 20:00] VITALS: BP 159/100; PULSE 82; PULSE 87; RESP 20; TEMP 98.2; O2SAT 100
[2016-09-30] VITALS: BP 142/93; PULSE 74; RESP 20; TEMP 97.4; O2SAT 98
[2016-09-30] MEDS: metroNIDAZOLE 500 MG INJ 100 ML IV SCH ×2 (03:39→08:59)
[2016-09-30 04:00] VITALS: BP 157/95; PULSE 67; RESP 20; TEMP 97; O2SAT 100
[2016-09-30 06:36] LABS: AUTOMATED NEUTROPHIL # 4.2 TH/MM3 (1.8-7.7); BASOPHIL % 0.7 % (0.0-2.0); EOSINOPHIL # 0.2 TH/MM3 (0-0.4); EOSINOPHIL % 3.1 % (0.0-4.0); HEMATOCRIT 29.3 % (39.0-51.0); HEMO FLAGS DIFF FINAL; LYMPH % 18.1 % (9.0-44.0); LYMPHOCYTE # 1.2 TH/MM3 (1.0-4.8); MEAN CELL VOLUME 93.5 FL (80.0-100.0); MEAN CORPUSCULAR HEMOGLOBIN 30.6 PG (27.0-34.0); MEAN CORPUSCULAR HGB CONC 32.7 % (32.0-36.0); MONO % 15.3 % (0.0-8.0); NEUT % 62.8 % (16.0-70.0); PLATELET COUNT 187 TH/MM3 (150-450); RED BLOOD COUNT 3.13 MIL/MM3 (4.50-5.90); RED CELL DISTRIBUTION WIDTH 17.6 % (11.6-17.2); WHITE BLOOD COUNT 6.6 TH/MM3 (4.0-11.0)
[2016-09-30 06:43] LABS: POTASSIUM 3.7 MEQ/L (3.5-5.1)
[2016-09-30 06:49] LABS: BICARBONATE 22.9 MEQ/L (21.0-32.0); MAGNESIUM 1.3 MG/DL (1.5-2.5)
[2016-09-30 08:00] VITALS: BP 157/97; PULSE 78; RESP 20; TEMP 97.2; O2SAT 99
[2016-09-30 08:15] VITALS: PULSE 64
[2016-09-30] MEDS: FOLIC ACID 1 MG TAB PO SCH (08:56)
[2016-09-30] MEDS: ALPRAZolam 0.5 MG TAB PO SCH (08:56)
[2016-09-30] MEDS: LACTOBACILLUS ACIDOPHILUS TAB PO SCH ×2 (08:56→12:03)
[2016-09-30] MEDS: FAMOTIDINE 20 MG TAB PO SCH (08:57)
[2016-09-30] MEDS: THIAMINE HCL 100 MG TAB PO SCH (08:58)
[2016-09-30] MEDS: FIDAXOMICIN 200 MG TAB PO SCH (08:58)
[2016-09-30] MEDS: cloNIDine HCL 0.1 MG TAB PO SCH (08:58)
[2016-09-30] MEDS: amLODIPine BESYLATE 5 MG TAB PO SCH (08:58)
[2016-09-30] MEDS: MULTIVITAMINS/MINERALS THERAPEUTIC TAB PO SCH (08:58)
[2016-09-30] MEDS: SODIUM CHLORIDE 0.9% FLUSH 10 ML FLUSH IV FLUSH SCH (08:59)
[2016-09-30] MEDS ORDERED: LISINOPRIL 20 MG TAB PO SCH (09:45)
[2016-09-30 12:00] VITALS: BP 137/95; PULSE 71; RESP 18; TEMP 97.6
[2016-09-30] MEDS: MAGNESIUM SULFATE 1 GM PREMIX 100 ML IV SCH ×2 (12:03→14:36)
[2016-09-30] MEDS: SODIUM CHLOR 0.9% 1000 ML INJ 1,000 ML IV SCH (12:10)
--- NOTE | 2016-09-30 12:34 | HHI.DS ---
Discharge Summary Admission Date Sep 27, 2016 at 19:25 Discharge Date: Sep 30, 2016 Admitting Diagnosis CDiff, Dehydration, Possible superimposed diverticulitis. (1) Abdominal pain ICD Code: R10.9 (2) Leukocytosis ICD Code: D72.829 (3) SIRS (systemic inflammatory response syndrome) ICD Code: R65.10 (4) Sepsis ICD Code: A41.9 (5) SHAVONNE (acute kidney injury) ICD Code: N17.9 Procedures none Brief History - From Admission History of present illness from the admitting physician This is a 61-year-old male with a history of recurrent C. difficile colitis who just completed tapering vancomycin for over 7 weeks yesterday, hypertension, GERD, alcohol withdrawal seizures, anxiety and arthritis. He presents to the emergency department complaining of worsening constant sharp severe lower quadrant pain past 2 days associated with nausea, diarrhea 6 episodes. Stools described as nonbloody and nonmucoid. States he completed vancomycin yesterday. No fever but complained of chills. No UTI symptoms. CT of the abdomen and pelvis showed diverticulosis with thickening of the sigmoid. He has history of diverticulitis and was placed on Levaquin which caused tendon rupture and C. difficile. Overnight he was started on IV Zosyn and by mouth vancomycin. C. difficile is pending. This morning patient states he is feeling better with improved abdominal pain, nausea and diarrhea. States he he can't tolerate intravenous Flagyl but not by mouth cause of nausea. All other systems reviewed negative CBC/BMP: 09/30/16 0600 09/30/16 0600 Significant Findings Laboratory Tests Test 09/27/16 09/28/16 09/29/16 09/29/16 17:45 05:01 05:37 15:45 White Blood Count 15.6 TH/MM3 (4.0-11.0) Red Blood Count 3.72 MIL/MM3 3.14 MIL/MM3 3.17 MIL/MM3 (4.50-5.90) (4.50-5.90) (4.50-5.90) Hemoglobin 11.7 GM/DL 9.6 GM/DL 9.7 GM/DL (13.0-17.0) (13.0-17.0) (13.0-17.0) Hematocrit 34.0 % 28.8 % 29.8 % (39.0-51.0) (39.0-51.0) (39.0-51.0) Neutrophils (%) (Auto) 74.2 % (16.0-70.0) Neutrophils # (Auto) 11.6 TH/MM3 (1.8-7.7) Monocytes # (Auto) 1.2 TH/MM3 1.0 TH/MM3 (0-0.9) (0-0.9) Urine Ketones 15 mg/dL (NEG) Urine Leukocyte Esterase SMALL (NEG) Urine WBC 6-8 /hpf (0-5) Blood Urea Nitrogen 23 MG/DL (7-18) 22 MG/DL (7-18) Creatinine 1.80 MG/DL 1.70 MG/DL (0.60-1.30) (0.60-1.30) Estimat Glomerular Filtration 38 ML/MIN (>89) 41 ML/MIN (>89) 68 ML/MIN (>89) 68 ML/MIN (>89) Rate Random Glucose 115 MG/DL (74-106) Troponin I LESS THAN 0.02 NG/ML (0.02-0.05) Total Protein 8.4 GM/DL (6.4-8.2) Monocytes (%) (Auto) 8.7 % (0.0-8.0) 13.3 % (0.0-8.0) Calcium Level 7.8 MG/DL 8.2 MG/DL 8.0 MG/DL (8.5-10.1) (8.5-10.1) (8.5-10.1) Albumin 3.2 GM/DL (3.4-5.0) Potassium Level 3.3 MEQ/L (3.5-5.1) Magnesium Level 0.5 MG/DL (1.5-2.5) Test 09/30/16 06:00 Red Blood Count 3.13 MIL/MM3 (4.50-5.90) Hemoglobin 9.6 GM/DL (13.0-17.0) Hematocrit 29.3 % (39.0-51.0) Red Cell Distribution Width 17.6 % (11.6-17.2) Monocytes (%) (Auto) 15.3 % (0.0-8.0) Monocytes # (Auto) 1.0 TH/MM3 (0-0.9) Estimat Glomerular Filtration 68 ML/MIN (>89) Rate Random Glucose 107 MG/DL (74-106) Calcium Level 8.1 MG/DL (8.5-10.1) Magnesium Level 1.3 MG/DL (1.5-2.5) Imaging Last Impressions Abdomen/Pelvis CT 09/27/16 0000 Signed Impressions: Service Date/Time: Tuesday, September 27, 2016 18:42 - CONCLUSION: 1. Diverticulosis of the sigmoid colon. Underlying wall thickening could be related to mild degree of diverticulitis. No perforation or abscess. 2. Mild wall thickening of the urinary bladder, nonspecific. 3. Old left lower lateral rib fracture appears to be the eighth rib. Zeyad Denis MD PE at Discharge GENERAL: This is a well-nourished, well-developed patient, in no apparent distress. SKIN: No rashes, ecchymoses or lesions. Cool and dry. HEAD: Atraumatic. Normocephalic. No temporal or scalp tenderness. EYES: Pupils equal round and reactive. Extraocular motions intact. No scleral icterus. No injection or drainage. ENT: Nose without bleeding, purulent drainage or septal hematoma. Throat without erythema, tonsillar hypertrophy or exudate. Uvula midline. Airway patent. NECK: Trachea midline. No JVD or lymphadenopathy. Supple, nontender, no meningeal signs. CARDIOVASCULAR: Regular rate and rhythm without murmurs, gallops, or rubs. RESPIRATORY: Clear to auscultation. Breath sounds equal bilaterally. No wheezes , rales, or rhonchi. GASTROINTESTINAL: Abdomen soft, improving tenderness in the lower quadrant areas and mild abdominal distention. No guarding. MUSCULOSKELETAL: Extremities without clubbing, cyanosis, or edema. No joint tenderness, effusion, or edema noted. No calf tenderness. Negative Homans sign bilaterally. NEUROLOGICAL: Awake and alert. Cranial nerves II through XII intact. Motor and sensory grossly within normal limits. Five out of 5 muscle strength in all muscle groups. Normal speech. Improving tremors Pt update on day of discharge Patient reports he is feeling well. He wants to go home. No further episodes of diarrhea. He had one normal bowel movement this morning. No abdominal pain , nausea, or vomiting. Hospital Course 61-year-old male admitted for possible recurrence of C. difficile colitis. CT of the abdomen also concerning for diverticulitis. The patient was admitted and treated under the guidance of infectious disease. He was treated initially treated with Dificid and IV Flagyl. Repeat C. difficile PCR was negative. Case discussed with infectious disease on the day of discharge. The patient is discharged on vancomycin 250 mg 4 times a day. He will follow up outpatient with infectious disease. Other conditions treated include Sepsis secondary to above. Treatment as above. Sepsis resolved. Acute on chronic kidney disease stage II secondary to dehydration and above. Improved with IV hydration. Anemia likely dilutional. No gross bleeding. Repeat CBC stable. Thickening of the urinary bladder. Urinalysis shows 8 WBC. Patient already on antimicrobials. Outpatient follow-up Hypokalemia and hypomagnesemia: Secondary to loss from diarrhea. These were replaced aggressively. Patient counseled on a diet on discharge. Chronic medical conditions of hypertension, GERD, alcohol withdrawal seizures, anxiety and arthritis. Continue outpatient medications Discussed with RN and Dr. Danielle Pt Condition on Discharge: Good Discharge Disposition: Discharge Home Discharge Time: > 30 minutes Discharge Instructions Follow up Referrals: Infectious Disease - 1 Week PCP Follow-up - 1 Week New Medications: Clonidine (Catapres) 0.1 Mg Tab 0.1 MG PO BID Blood Pressure Management #60 TAB Famotidine (Famotidine) 20 Mg Tab 10 MG PO BID Manage Heartburn #60 TAB Lactobacillus Acidophilus (Acidophilus/l-Sporogenes) 1 Tab Tab 1 TAB PO TID Bowel Management #42 TAB Thiamine HCl (Gnp Vitamin B-1) 100 Mg Tab 100 MG PO DAILY Alcohol Detox #30 TAB Continued Medications: Alprazolam (Alprazolam) 0.5 Mg Tab 0.5 MG PO BID ANXIETY Ref 0 TAB Amlodipine (Amlodipine) 5 Mg Tab 5 MG PO DAILY Blood Pressure Management #30 Ref 0 TAB Lisinopril (Lisinopril) 20 Mg Tab 20 MG PO DAILY #30 Ref 0 TAB Omeprazole (Omeprazole) 20 Mg Tab 20 MG PO DAILY #30 Ref 0 TAB Vancomycin (Vancomycin) 250 Mg Cap 250 MG PO QID Infection #76 Ref 0 CAP (This prescription has been renewed) Discontinued Medications: Vancomycin (Vancomycin) 250 Mg Cap 250 MG PO QID 250mg PO QID x 2wks, then 250mg TID x 3wks, then 250mg BID x 2wks Infection #147 Ref 0 Arabella Leslie MD Sep 30, 2016 12:34
[2016-09-30] MEDS: MORPHINE SULFATE 4 MG/ML INJ IV PRN (14:41)
[2016-09-30] MEDS ORDERED: VANC250C2 PO (15:43)
[2016-09-30 16:00] VITALS: PULSE 65; RESP 18; TEMP 97.6; O2SAT 100
[2016-09-30] MEDS ORDERED: FAMO20TA2 PO (16:06)
[2016-09-30] MEDS ORDERED: FAMOTIDINE 20 MG TAB PO SCH (21:00)
== END 2016-09-30 17:51 | disposition home or self-care (01) | DRG 872 ==
LOC: PHED 17:03 → PHEDA 19:25 → PH3B 21:27
PROVIDERS: ADMIT Family Medicine; ATTEND Family Medicine
DX: A41.9 Sepsis, unspecified organism (principal); N17.9 Acute kidney failure, unspecified; K57.32 Diverticulitis of large intestine without perforation or abscess without bleeding; E83.42 Hypomagnesemia; E86.0 Dehydration; N18.2 Chronic kidney disease, stage 2 (mild); I12.9 Hypertensive chronic kidney disease with stage 1 through stage 4 chronic kidney disease, or unspecified chronic kidney disease; M25.511 Pain in right shoulder; K21.9 Gastro-esophageal reflux disease without esophagitis; Z88.1 Allergy status to other antibiotic agents; Z88.5 Allergy status to narcotic agent; F41.9 Anxiety disorder, unspecified; M19.90 Unspecified osteoarthritis, unspecified site; Z96.642 Presence of left artificial hip joint; F12.10 Cannabis abuse, uncomplicated; F10.10 Alcohol abuse, uncomplicated; E87.6 Hypokalemia
CPT/HCPCS: 74177; 80048; 80053; 81001; 83605; 83690; 83735; 84484; 85025; 87493; 93005; 96374; 96375; J1885; J2270; J2405; J2543; J3475; J7030; Q9967

== ENCOUNTER 2016-10-17 11:16 | Inpatient (IN) | payer BC ==
[~2016-10-17] VITALS: Ht 175.3 cm; Wt 67.6 kg
[2016-10-17] VITALS (8 sets, daily range): BP systolic 117–149; BP diastolic 78–102; PULSE 83–120; RESP 16–18; TEMP 96.9–98.5; O2SAT 97–100
[~2016-10-17 11:16] MED LIST changes: +CLON.1 PO; +FAMO20TA2 PO; +GNP100TA3 PO; +LACT PO
[2016-10-17] MEDS ORDERED: SODIUM CHLOR 0.9% 1000 ML INJ 1,000 ML IV SCH ×2 (12:16→13:06)
--- NOTE | 2016-10-17 12:16 | PD ---
HPI Chief Complaint: GI Complaint Time Seen by Provider: 12:06 Travel History International Travel<30 days: No Contact w/Intl Traveler<30days: No Traveled to known affect area: No History of Present Illness HPI HAS H/O DIVERTIC WELL C DIFF IN PAST, WAS SEEN ON September THIS YEAR FOR SIMILAR SYMPTOMS TOLD IT WAS A FLAREUP OF CDIFF HOWEVER NO ABX WERE GIVEN....NOW PT RETURNS WITH N/V/D, MULTIPLE EPISODES, DENIES FEVER, LOWER ABDOMINAL CRAMPY PAIN. NO BLOOD IN STOOL PER PATIENT 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 ) Asthma: No Autoimmune Disease: No Anxiety: Yes Depression: No Heart Rhythm Problems: No Cancer: No Cardiovascular Problems: Yes (HTN) High Cholesterol: No Chemotherapy: No Chest Pain: No Congestive Heart Failure: No COPD: No Cerebrovascular Accident: No Diabetes: No Diminished Hearing: No Diverticulitis: Yes Endocrine: No GERD: Yes Genitourinary: No Headaches: No Hiatal Hernia: No Heparin Induced Thrombocytopen: No Hypertension: Yes Immune Disorder: No Implanted Vascular Access Dvce: Yes Kidney Stones: No Musculoskeletal: No Neurologic: No Psychiatric: No Reproductive: No Respiratory: No Immunizations Current: Yes Migraines: No Pancreatitis: Yes Renal Failure: No Seizures: Yes (IN PAST R/T ALCOHOL WITHDRAWAL 2013) Sickle Cell Disease: No Sleep Apnea: No Thyroid Disease: No Ulcer: No PNEUMOCCOCAL Vaccine (Year): 2 Past Surgical History Abdominal Surgery: No AICD: No Arteriovenous Shunt: No Body Medical Devices: DISSOLVABLE SCREW IN LEFT ANKLE - placed 2014 Cardiac Surgery: No Ear Surgery: No Endocrine Surgery: No Eye Surgery: No Genitourinary Surgery: No Gynecologic Surgery: No Hysterectomy: No Insulin Pump: No Joint Replacement: Yes (L hip 06/2015) Neurologic Surgery: No Oral Surgery: No Pacemaker: No Thoracic Surgery: No Other Surgery: Yes (2 BACK AND ONE NECK SURGERIES) Social History Alcohol Use: Yes (3 TO 4 TIMES PER DAY) Tobacco Use: No Substance Use: No Allergies-Medications (Allergen,Severity, Reaction): Coded Allergies: Bactrim (Verified Allergy, Severe, Diarrhea, 10/17/16) Codeine (Verified Allergy, Severe, RASH, 10/17/16) Levaquin (Verified Allergy, Severe, ACHILLES TENDON PROBLEM, 10/17/16) Reported Meds & Prescriptions Reported Meds & Active Scripts Active Famotidine 20 Mg Tab 10 Mg PO BID Gnp Vitamin B-1 (Thiamine HCl) 100 Mg Tab 100 Mg PO DAILY Reported Alprazolam 0.5 Mg Tab 0.5 Mg PO BID Amlodipine (Amlodipine Besylate) 5 Mg Tab 5 Mg PO DAILY Lisinopril 20 Mg Tab 20 Mg PO DAILY Review of Systems Except as stated in HPI: all other systems reviewed are Neg Gastrointestinal: Positive: Nausea, Vomiting, Diarrhea, Abdominal Pain Physical Exam Narrative GENERAL: SKIN: Warm and dry. HEAD: Atraumatic. Normocephalic. EYES: Pupils equal and round. No scleral icterus. No injection or drainage. ENT: No nasal bleeding or discharge. Mucous membranes pink and moist. NECK: Trachea midline. No JVD. CARDIOVASCULAR: Regular rate and rhythm. RESPIRATORY: No accessory muscle use. Clear to auscultation. Breath sounds equal bilaterally. GASTROINTESTINAL: Abdomen soft, non-tender, nondistended. Hepatic and splenic margins not palpable. MUSCULOSKELETAL: Extremities without clubbing, cyanosis, or edema. No obvious deformities. NEUROLOGICAL: Awake and alert. No obvious cranial nerve deficits. Motor grossly within normal limits. Five out of 5 muscle strength in the arms and legs. Normal speech. PSYCHIATRIC: Appropriate mood and affect; insight and judgment normal. Data Data Last Documented VS Vital Signs Date Time Temp Pulse Resp B/P Pulse Ox O2 Delivery O2 Flow Rate FiO2 10/17/16 13:08 16 10/17/16 12:30 100 117/87 100 Room Air 10/17/16 11:20 97.9 Orders Complete Blood Count With Diff (10/17/16 11:29) Comprehensive Metabolic Panel (10/17/16 11:29) Lipase (10/17/16 11:29) C Diff Toxin Pcr (10/17/16 12:16) Ct Abd/Pel W Iv Contrast(Rout) (10/17/16 12:16) Iv Access Insert/Monitor (10/17/16 12:16) Ecg Monitoring (10/17/16 12:16) Oximetry (10/17/16 12:16) NPO (10/17/16 12:16) Morphine Inj (Morphine Inj) (10/17/16 12:30) Sodium Chlor 0.9% 1000 Ml Inj (Ns 1000 M (10/17/16 12:16) Sodium Chloride 0.9% Flush (Ns Flush) (10/17/16 12:30) Iodixanol 320 Inj (Rad Ct) (Visipaque 32 (10/17/16 12:55) Metronidazole 500 Mg Inj (Flagyl 500 Mg (10/17/16 13:15) Sodium Chlor 0.9% 1000 Ml Inj (Ns 1000 M (10/17/16 13:06) Ondansetron Inj (Zofran Inj) (10/17/16 13:15) Labs Laboratory Tests Test 10/17/16 12:29 White Blood Count 14.8 TH/MM3 Red Blood Count 4.55 MIL/MM3 Hemoglobin 13.4 GM/DL Hematocrit 41.2 % Mean Corpuscular Volume 90.7 FL Mean Corpuscular Hemoglobin 29.4 PG Mean Corpuscular Hemoglobin 32.4 % Concent Red Cell Distribution Width 16.9 % Platelet Count 448 TH/MM3 Mean Platelet Volume 9.2 FL Neutrophils (%) (Auto) 81.4 % Lymphocytes (%) (Auto) 10.4 % Monocytes (%) (Auto) 6.4 % Eosinophils (%) (Auto) 0.1 % Basophils (%) (Auto) 1.7 % Neutrophils # (Auto) 12.1 TH/MM3 Lymphocytes # (Auto) 1.5 TH/MM3 Monocytes # (Auto) 0.9 TH/MM3 Eosinophils # (Auto) 0.0 TH/MM3 Basophils # (Auto) 0.3 TH/MM3 CBC Comment AUTO DIFF Differential Comment AUTO DIFF CONFIRMED Sodium Level 133 MEQ/L Potassium Level 4.4 MEQ/L Chloride Level 99 MEQ/L Carbon Dioxide Level 18.5 MEQ/L Anion Gap 16 MEQ/L Blood Urea Nitrogen 38 MG/DL Creatinine 2.30 MG/DL Estimat Glomerular Filtration 29 ML/MIN Rate Random Glucose 129 MG/DL Calcium Level 10.3 MG/DL Total Bilirubin 0.6 MG/DL Aspartate Amino Transf 18 U/L (AST/SGOT) Alanine Aminotransferase 20 U/L (ALT/SGPT) Alkaline Phosphatase 63 U/L Total Protein 8.8 GM/DL Albumin 4.2 GM/DL Lipase 323 U/L [facility] Medical Decision Making Medical Screen Exam Complete: Yes Emergency Medical Condition: Yes Medical Record Reviewed: Yes Differential Diagnosis DIVERTICULITIS V DIVERTIC ABSCESS V DIVERTIC PERFORATION V COLITIS Narrative Course PATIENT IS NOT ACTIVELY VOMITING ANY LONGER AND NO E/O FURTHER DIARRHEA Wilmer Antoine MD Oct 17, 2016 12:16
[2016-10-17] MEDS ORDERED: MORPHINE SULFATE 4 MG/ML INJ IV PUSH ONE ×2 (12:30→16:00)
[2016-10-17] MEDS: SODIUM CHLORIDE 0.9% FLUSH 10 ML FLUSH IV FLUSH PRN ×4 (12:37→16:21)
[2016-10-17 12:40] LABS: AUTOMATED NEUTROPHIL # 12.1 TH/MM3 (1.8-7.7); BASOPHIL # 0.3 TH/MM3 (0-0.2); BASOPHIL % 1.7 % (0.0-2.0); EOSINOPHIL % 0.1 % (0.0-4.0); HEMATOCRIT 41.2 % (39.0-51.0); LYMPH % 10.4 % (9.0-44.0); LYMPHOCYTE # 1.5 TH/MM3 (1.0-4.8); MEAN CELL VOLUME 90.7 FL (80.0-100.0); MEAN CORPUSCULAR HEMOGLOBIN 29.4 PG (27.0-34.0); MEAN CORPUSCULAR HGB CONC 32.4 % (32.0-36.0); MONO % 6.4 % (0.0-8.0); NEUT % 81.4 % (16.0-70.0); PLATELET COUNT 448 TH/MM3 (150-450); RED BLOOD COUNT 4.55 MIL/MM3 (4.50-5.90); RED CELL DISTRIBUTION WIDTH 16.9 % (11.6-17.2); WHITE BLOOD COUNT 14.8 TH/MM3 (4.0-11.0)
[2016-10-17 12:42] LABS: CHLORIDE 99 MEQ/L (98-107); HEMO FLAGS AUTO DIFF; POTASSIUM 4.4 MEQ/L (3.5-5.1); SODIUM (NA) 133 MEQ/L (136-145)
[2016-10-17 12:45] LABS: ANION GAP 16 MEQ/L (5-15); BICARBONATE 18.5 MEQ/L (21.0-32.0); BLOOD UREA NITROGEN 38 MG/DL (7-18)
[2016-10-17 12:48] LABS: ALT (GPT) 20 U/L (12-78); AST (GOT) 18 U/L (15-37); GLOMERULAR FILTRATION RATE 29 ML/MIN (>89)
[2016-10-17 12:50] LABS: TOTAL BILIRUBIN ADULT 0.6 MG/DL (0.2-1.0)
[2016-10-17 12:51] LABS: ALKALINE PHOSPHATASE 63 U/L (45-117)
[2016-10-17] MEDS ORDERED: IODIXANOL 320 MG/ML 10 ML VIAL (for Rad CT) IV ONE (12:55)
--- NOTE | 2016-10-17 13:02 | RADRPT ---
EXAM DATE/TIME: 10/17/2016 12:31 [place] COMPARISON: CT ABDOMEN & PELVIS W CONTRAST, September 27, 2016, 18:42. INDICATIONS : Vomiting and diarrhea for past several hours, history of abscess. IV CONTRAST: 50 cc Visipaque (iodixanol) IV ORAL CONTRAST: No oral contrast ingested. RADIATION DOSE: 8.53 CTDIvol (mGy) MEDICAL HISTORY : Hypertension. Gastroesophageal reflux disease. SURGICAL HISTORY : Hip replacement, and 2 back and neck surgeries. ENCOUNTER: Initial ACUITY: 1 day PAIN SCALE: 9/10 LOCATION: Abdomen and pelvis TECHNIQUE: Volumetric scanning of the abdomen and pelvis was performed. Using automated exposure control and ad justment of the mA and/or kV according to patient size, radiation dose was kept as low as reasonably achievable to obtain optimal diagnostic quality images. DICOM format image data is available electro nically for review and comparison. FINDINGS: LOWER LUNGS: The visualized lower lungs are clear. LIVER: Homogeneous density without lesion. There is no dilation of the biliary tree. No calcified gallston es. SPLEEN: Normal size without lesion. PANCREAS: Within normal limits. KIDNEYS: Normal in size and shape. There is no solid mass, stone or hydronephrosis. There is a 1.8 cm cyst at the inferior posterior left kidney. There is stable minimal perinephric stranding. ADRENAL GLANDS: Within normal limits. VASCULAR: There is no aortic aneurysm. BOWEL/MESENTERY: There are diverticula in the sigmoid colon. The sigmoid colon is thickened. Significant surrounding i nflammatory change is not seen. ABDOMINAL WALL: Within normal limits. RETROPERITONEUM: There is no lymphadenopathy. BLADDER: There is minimal thickening of the bladder. Bladder is not completely distended. REPRODUCTIVE: The prostate appears prominent in size. INGUINAL: There is no lymphadenopathy or hernia. MUSCULOSKELETAL: There is an old healed left 11th rib fracture. There is some degenerative change of the lower lumbar spine. There is a left hip prosthesis in place. CONCLUSION: 1. Diverticulosis and suspected hypertrophy of the sigmoid colon. Some degree of diverticulitis canno t be excluded although significant surrounding inflammatory change or an abscess is not seen. 2. Prominent prostate. 3. Minimal bladder wall thickening which may be secondary to lack of distention. Some degree of bowel obstruction also lead to some hypertrophy of the bladder. Alonzo Martinez MD on October 17, 2016 at 12:52 Board Certified Radiologist. This report was verified electronically.
[2016-10-17 13:11] LABS: SCAN/DIFF AUTO DIFF CONFIRMED
[2016-10-17] MEDS ORDERED: ONDANSETRON HCL 4 MG/2 ML VIAL IV PUSH ONE (13:15)
[2016-10-17] MEDS ORDERED: metroNIDAZOLE 500 MG INJ 100 ML IV ONE (13:15)
--- NOTE | 2016-10-17 15:00 | HHI.HP ---
[facility] Primary Care Physician Yamil Collado, DO Admission Diagnosis SEVERE DEHYDRATION DUE TO DIARRHEA (COLITIS R/O CDIFF) Diagnoses: (1) Sepsis Diagnosis: Principal (2) Leucocytosis Diagnosis: Principal (3) Diarrhea Diagnosis: Principal (4) Dehydration Diagnosis: Principal (5) Acute renal failure superimposed on stage 2 chronic kidney disease Diagnosis: Principal Chief Complaint: Diarrhea, dehydration Travel History International Travel<30 Days: No Contact w/Intl Traveler <30 Da: No Traveled to Known Affected Are: No History of Present Illness Written by Zane Sutherland, acting as scribe for Dr. Colvin on 10/17/16 at 14:44. 61 year-old male with known history of recurrent C. difficile colitis, hypertension, gastroesophageal reflux, alcohol use, alcohol related seizures, anxiety who presented to the hospital because of diarrhea. Patient states that he was in his normal state of health until early Wednesday morning. He indicates that night they went to the [facility] at [place] for dinner. He states that he had a steak which was medium well, he indicates that the other people that was with him ate the same thing. He got home and at approximate 4: 00 in the morning he woke up with sudden onset of nausea, vomiting and diarrhea. The patient is very familiar with diarrheal illness with his recurrent C. difficile colitis, so he decided to take in fluids to include water and Gatorade throughout the day, he did not eat anything solid. Patient was doing fine until 1:00 in the this morning when he started having water diarrhea every hour on the hour. He states that it is different than his regular C. difficile diarrhea. He states this is clear like water, he indicates that his C. difficile diarrhea is usually brown in color. He came to the hospital because of all the diarrhea and he knew he was dehydrated. Patient had workup and does indicate the signs and symptoms and laboratory studies indicative of dehydration. CT scans were performed which did show abnormality which is to be similar to previous ones done this month. Patient was recommended observation the hospital for fluid resuscitation. Patient denied any fever, however he states that he did have some chills. He has had some lower abdominal cramping which is significant to a 10 on a pain scale, he indicates that the pain was reduced to a 6 on a pain scale after the use of morphine. He denies any hematochezia, melena. Review of Systems Constitutional: DENIES: Diaphoretic episodes, Fatigue, Fever, Weight gain, Weight loss, Chills, Dizziness, Change in appetite, Night Sweats Eyes: DENIES: Blurred vision, Diplopia, Eye inflammation, Eye pain, Vision loss , Double Vision Ears, nose, mouth, throat: DENIES: Hearing loss, Nasal discharge, Throat pain, Ear Pain, Running Nose, Sinus Pain Respiratory: DENIES: Apneas, Cough, Snoring, Wheezing, Hemoptysis, Sputum production, Shortness of breath Cardiovascular: DENIES: Chest pain, Palpitations, Syncope, Dyspnea on Exertion , Lower Extremity Edema, Orthopnea Gastrointestinal: COMPLAINS OF: Abdominal pain, Diarrhea, Nausea, Vomiting, DENIES: Black stools, Bloody stools, Constipation, Difficulty Swallowing, Anorexia Neurologic: DENIES: Abnormal gait, Headache, Localized weakness, Paresthesias, Seizures, Speech Problems, Tremor, Poor Balance Past Family Social History Past Medical History Hypertension History of diverticulitis GERD Arthritis History of pancreatitis Recurrent clostridium difficile Past Surgical History Past Surgical History Rectal surgery Left-sided chest tube Back surgery 2 Neck surgery Left Achilles tendon surgery Left hip hemiarthroplasty Reported Medications Reported Meds & Active Scripts Active Famotidine 20 Mg Tab 10 Mg PO BID Gnp Vitamin B-1 (Thiamine HCl) 100 Mg Tab 100 Mg PO DAILY Reported Alprazolam 0.5 Mg Tab 0.5 Mg PO BID Amlodipine (Amlodipine Besylate) 5 Mg Tab 5 Mg PO DAILY Lisinopril 20 Mg Tab 20 Mg PO DAILY Allergies: Coded Allergies: Bactrim (Verified Allergy, Severe, Diarrhea, 10/17/16) Codeine (Verified Allergy, Severe, RASH, 10/17/16) Levaquin (Verified Allergy, Severe, ACHILLES TENDON PROBLEM, 10/17/16) Family History Reviewed and significant for mother with heart disease and dementia Social History Patient states that he does continue to drink approximately 23 rum drinks daily. Patient does use marijuana occasionally. Denies any tobacco use. Physical Exam Vital Signs Vital Signs Date Time Temp Pulse Resp B/P Pulse Ox O2 Delivery O2 Flow Rate FiO2 10/17/16 13:08 16 10/17/16 12:30 100 16 117/87 100 Room Air 10/17/16 12:22 16 97 Room Air 10/17/16 12:11 16 10/17/16 11:20 97.9 120 18 130/102 100 Physical Exam GENERAL: Well-developed, well-nourished, in no acute distress. alert and orientated HEENT: Head is normocephalic without any lesions or masses noted. Facial features are symmetric. Eyes: Pupils equal round reactive to light. Extraocular muscles are intact. Conjunctivae were clear. Oropharyngeal: Pharynx without any erythema edema. Tongue is midline without deviation. Buccal mucosa is moist without any masses or lesions NECK: Supple without any masses. Trachea midline no deviation. No JVD, no bruits are appreciated CARDIAC: Regular rhythm, regular rate. S1/S2 are heard. No murmurs gallops or rubs. LUNGS: Clear to auscultation bilaterally. No wheeze, rhonchi or rales. No use of accessory muscles on inspiration or expiration. ABDOMEN: Soft, left lower quadrant tenderness on deep palpation. Nondistended. Bowel sounds heard in all 4 quadrants. No organomegaly or masses. Negative rebound, negative guarding EXTREMITIES: No edema, pulses are equal bilaterally. No cyanosis or clubbing NEUROLOGY: Mood and affect appear appropriate. Cranial nerves II through XII grossly intact. Muscle strength 5/5 in upper and lower extremities bilaterally. Deep tendon reflexes are 2+ in upper and lower extremities bilaterally. Laboratory Laboratory Tests Test 10/17/16 12:29 White Blood Count 14.8 Red Blood Count 4.55 Hemoglobin 13.4 Hematocrit 41.2 Mean Corpuscular Volume 90.7 Mean Corpuscular Hemoglobin 29.4 Mean Corpuscular Hemoglobin 32.4 Concent Red Cell Distribution Width 16.9 Platelet Count 448 Mean Platelet Volume 9.2 Neutrophils (%) (Auto) 81.4 Lymphocytes (%) (Auto) 10.4 Monocytes (%) (Auto) 6.4 Eosinophils (%) (Auto) 0.1 Basophils (%) (Auto) 1.7 Neutrophils # (Auto) 12.1 Lymphocytes # (Auto) 1.5 Monocytes # (Auto) 0.9 Eosinophils # (Auto) 0.0 Basophils # (Auto) 0.3 CBC Comment AUTO DIFF Differential Comment AUTO DIFF CONFIRMED Sodium Level 133 Potassium Level 4.4 Chloride Level 99 Carbon Dioxide Level 18.5 Anion Gap 16 Blood Urea Nitrogen 38 Creatinine 2.30 Estimat Glomerular Filtration 29 Rate Random Glucose 129 Calcium Level 10.3 Total Bilirubin 0.6 Aspartate Amino Transf 18 (AST/SGOT) Alanine Aminotransferase 20 (ALT/SGPT) Alkaline Phosphatase 63 Total Protein 8.8 Albumin 4.2 Lipase 323 Result Diagram: 10/17/16 1229 10/17/16 1229 Imaging Last Impressions Abdomen/Pelvis CT 10/17/16 1216 Signed Impressions: Service Date/Time: Wednesday, October 17, 2016 12:31 - CONCLUSION: 1. Diverticulosis and suspected hypertrophy of the sigmoid colon. Some degree of diverticulitis cannot be excluded although significant surrounding inflammatory change or an abscess is not seen. 2. Prominent prostate. 3. Minimal bladder wall thickening which may be secondary to lack of distention. Some degree of bowel obstruction also lead to some hypertrophy of the bladder. Alonzo Martinez MD Septic Shock Reassessment Heart: Regular rate and rhythm Lungs: Clear Peripheral Pulses: Bounding Right Radial Bounding Left Radial Capillary Refill: Brisk, <2 seconds Assessment and Plan Problem List: (1) Sepsis ICD Code: A41.9 Status: Acute Plan: Patient is criteria on admission with leukocytosis, tachycardia, diarrhea illness Obtain stool cultures, blood cultures patient started empirically on Flagyl Continue fluid resuscitation Obtain lactic acid level (2) Leucocytosis ICD Code: D72.829 Status: Acute Plan: Could be secondary concentration due to the patient's acute dehydration, renal failure, however infection is being ruled out Monitor CBC (3) Diarrhea ICD Code: R19.7 Status: Acute Plan: Patient with increased risk factors of recurrent C. difficile colitis Start patient on Flagyl at this time Check stool cultures, C. difficile culture Continue follow cultures for appropriate antibiotics (4) Acute renal failure superimposed on stage 2 chronic kidney disease ICD Code: N17.9 Status: Acute Plan: Likely secondary to nausea, vomiting, diarrhea illness Continue IV fluids Monitor renal function Avoid nephrotoxins (5) Alcohol abuse ICD Code: F10.10 Status: Acute Plan: We'll need to monitor patient for withdrawal symptoms closely Seizure precautions CIWA protocol Thiamine and folic acid (6) Hypertension ICD Code: I10 Status: Chronic Assessment and Plan DVT prevention Sequential compression devices Lovenox This note was transcribed by juan miguel Sutherland. I, Dr. Toby Aden personally performed the history, physical exam, and medical decision making; and confirmed the accuracy of the information in the transcribed note. Authenticated by Dr. Toby Aden on 10/17/16 at 16:08. Zane Sutherland Oct 17, 2016 15:00 Toby Garcia MD Oct 17, 2016 16:09
[2016-10-17] MEDS: ENOXAPARIN SODIUM 40 MG/0.4 ML SYRINGE SQ SCH (15:52)
[2016-10-17] MEDS ORDERED: ACETAMINOPHEN/HYDROcodone 325 MG/5 MG TAB PO PRN (16:00)
[2016-10-17] MEDS ORDERED: DOCUSATE SODIUM 100 MG CAP PO PRN (16:00)
[2016-10-17] MEDS ORDERED: NALOXONE HCL 0.4 MG/ML AMP IV PRN (16:00)
[2016-10-17] MEDS ORDERED: LORazepam 2 MG/ML VIAL IV PUSH PRN ×4 (16:00)
[2016-10-17] MEDS ORDERED: MAGNESIUM HYDROXIDE SUSP 30 ML CUP PO PRN (16:00)
[2016-10-17] MEDS ORDERED: FLUMAZENIL 0.5 MG/5 ML VIAL IV PUSH PRN (16:00)
[2016-10-17] MEDS ORDERED: CALCIUM CARBONATE 500 MG CHEWABLE TAB CHEW PRN (16:00)
[2016-10-17] MEDS ORDERED: LORazepam 1 MG TAB PO PRN (16:00)
[2016-10-17] MEDS ORDERED: ACETAMINOPHEN 325 MG TAB PO PRN (16:00)
[2016-10-17] MEDS ORDERED: LORazepam 2 MG TAB PO PRN (16:00)
[2016-10-17] MEDS: LACTOBACILLUS ACIDOPHILUS TAB PO SCH (18:54)
[2016-10-17] MEDS: THIAMINE HCL 100 MG TAB PO SCH (18:55)
[2016-10-17] MEDS: NS + KCL 20 MEQ INJ 1,000 ML IV SCH ×2 (18:55→20:19)
[2016-10-17] MEDS: FOLIC ACID 1 MG TAB PO SCH (18:56)
[2016-10-17] MEDS: metroNIDAZOLE 500 MG INJ 100 ML IV SCH (21:02)
[2016-10-18 00:25] VITALS: BP 126/90; PULSE 68; RESP 16; TEMP 97; O2SAT 99
[2016-10-18] MEDS: LACTOBACILLUS ACIDOPHILUS TAB PO SCH ×4 (01:05→22:11)
[2016-10-18] MEDS: metroNIDAZOLE 500 MG INJ 100 ML IV SCH (05:28)
[2016-10-18] MEDS: NS + KCL 20 MEQ INJ 1,000 ML IV SCH ×3 (05:28→22:10)
[2016-10-18] MEDS: ONDANSETRON HCL 4 MG/2 ML VIAL IV PRN ×3 (05:33→23:02)
[2016-10-18 06:46] LABS: AUTOMATED NEUTROPHIL # 8.3 TH/MM3 (1.8-7.7); BASOPHIL % 0.3 % (0.0-2.0); EOSINOPHIL # 0.1 TH/MM3 (0-0.4); EOSINOPHIL % 0.8 % (0.0-4.0); HEMATOCRIT 31.6 % (39.0-51.0); HEMO FLAGS DIFF FINAL; LYMPH % 15.4 % (9.0-44.0); LYMPHOCYTE # 1.7 TH/MM3 (1.0-4.8); MEAN CELL VOLUME 90.9 FL (80.0-100.0); MEAN CORPUSCULAR HEMOGLOBIN 29.8 PG (27.0-34.0); MEAN CORPUSCULAR HGB CONC 32.8 % (32.0-36.0); NEUT % 74.5 % (16.0-70.0); PLATELET COUNT 326 TH/MM3 (150-450); RED BLOOD COUNT 3.48 MIL/MM3 (4.50-5.90); RED CELL DISTRIBUTION WIDTH 16.4 % (11.6-17.2); WHITE BLOOD COUNT 11.1 TH/MM3 (4.0-11.0)
[2016-10-18 07:12] LABS: BICARBONATE 19.6 MEQ/L (21.0-32.0); POTASSIUM 4.9 MEQ/L (3.5-5.1)
[2016-10-18 08:00] VITALS: BP 144/91; PULSE 98; RESP 18; TEMP 98.3; O2SAT 97
[2016-10-18] MEDS: THIAMINE HCL 100 MG TAB PO SCH (09:15)
[2016-10-18] MEDS: FOLIC ACID 1 MG TAB PO SCH (09:16)
--- NOTE | 2016-10-18 09:19 | PD.PN.STU ---
Subjective Remarks Patient states that he is doing worse today. He is having diarrhea every hour which he says is due to the Flagyl. This diarrhea is different than the diarrhea he was having at home, he describes it as yellow and watery and believes it to be the medication. He has not had solid food in 3 days. He would like to be taken off the Flagyl, he says he does better on vancomycin. He did not sleep all night because of the diarrhea. Denies abdominal pain, vomiting. Has some nausea relieved with Zofran. No chest pain or SOB. Objective Vitals Vital Signs Date Time Temp Pulse Resp B/P Pulse Ox O2 Delivery O2 Flow Rate FiO2 10/18/16 08:00 98.3 98 18 144/91 97 10/18/16 00:25 97.0 68 16 126/90 99 10/17/16 20:37 96.9 83 16 149/90 99 10/17/16 17:15 98.5 84 18 128/86 99 10/17/16 16:36 86 16 149/96 97 10/17/16 16:05 16 10/17/16 14:35 87 16 143/88 10/17/16 14:00 16 10/17/16 13:40 96 16 131/78 97 Room Air 10/17/16 13:08 16 10/17/16 12:30 100 16 117/87 100 Room Air 10/17/16 12:22 16 97 Room Air 10/17/16 12:11 16 10/17/16 11:20 97.9 120 18 130/102 100 I/O 10/17/16 10/17/16 10/17/16 10/18/16 10/18/16 10/18/16 07:00 15:00 23:00 07:00 15:00 23:00 Intake Total 1002 ml 1357 ml Balance 1002 ml 1357 ml Intake IV Total 1002 ml 1357 ml # Voids 1 2 Result Diagram: 10/18/16 0543 10/18/16 0543 Imaging Vital Signs, 24 Hour Date Time Temp Pulse Resp B/P Pulse Ox O2 Delivery O2 Flow Rate FiO2 10/18/16 08:00 98.3 98 18 144/91 97 10/18/16 00:25 97.0 68 16 126/90 99 10/17/16 20:37 96.9 83 16 149/90 99 10/17/16 17:15 98.5 84 18 128/86 99 10/17/16 16:36 86 16 149/96 97 10/17/16 16:05 16 10/17/16 14:35 87 16 143/88 10/17/16 14:00 16 10/17/16 13:40 96 16 131/78 97 Room Air 10/17/16 13:08 16 10/17/16 12:30 100 16 117/87 100 Room Air 10/17/16 12:22 16 97 Room Air 10/17/16 12:11 16 10/17/16 11:20 97.9 120 18 130/102 100 Allergies Coded Allergies Bactrim (Verified Allergy, Severe, Diarrhea, 10/17/16) Codeine (Verified Allergy, Severe, RASH, 10/17/16) Levaquin (Verified Allergy, Severe, ACHILLES TENDON PROBLEM, 10/17/16) Laboratory Tests per Lyn Test 10/17/16 10/18/16 12:29 05:43 White Blood Count 14.8 TH/MM3 11.1 TH/MM3 Red Blood Count 4.55 MIL/MM3 3.48 MIL/MM3 Sodium Level 133 MEQ/L 140 MEQ/L Potassium Level 4.4 MEQ/L 4.9 MEQ/L Blood Urea Nitrogen 38 MG/DL 30 MG/DL Recent Impressions Abdomen/Pelvis CT 10/17/16 1216 Signed Impressions: Service Date/Time: Monday, October 17, 2016 12:31 - CONCLUSION: 1. Diverticulosis and suspected hypertrophy of the sigmoid colon. Some degree of diverticulitis cannot be excluded although significant surrounding inflammatory change or an abscess is not seen. 2. Prominent prostate. 3. Minimal bladder wall thickening which may be secondary to lack of distention. Some degree of bowel obstruction also lead to some hypertrophy of the bladder. Alonzo Martinez MD Active Scripts Active Famotidine 20 Mg Tab 10 Mg PO BID Gnp Vitamin B-1 (Thiamine HCl) 100 Mg Tab 100 Mg PO DAILY Reported Alprazolam 0.5 Mg Tab 0.5 Mg PO BID Amlodipine (Amlodipine Besylate) 5 Mg Tab 5 Mg PO DAILY Lisinopril 20 Mg Tab 20 Mg PO DAILY Microbiology 10/17/16 Aerobic Blood Culture, Received Pending 10/17/16 Anaerobic Blood Culture, Received Pending Objective Remarks GENERAL: Well-nourished male in no acute distress. SKIN: Warm and dry. HEAD: Normocephalic. EYES: No scleral icterus. No injection or drainage. NECK: Supple, trachea midline. No JVD or lymphadenopathy. CARDIOVASCULAR: Regular rate and rhythm without murmurs, gallops, or rubs. No peripheral edema. No JVD. RESPIRATORY: Breath sounds equal bilaterally. No accessory muscle use. GASTROINTESTINAL: Abdomen soft, non-tender, nondistended. MUSCULOSKELETAL: No cyanosis, or edema. BACK: Nontender without obvious deformity. No CVA tenderness. A/P Assessment and Plan 1. Leukocytosis - WBC count trending down, 11.1 - vital signs are stable, afebrile 2. Nonspecific diarrheal illness - he has a history of C. Diff infection that began after Achilles tendon surgery in 2014 when he was given Bactrim - having yellow watery diarrhea now, which he attributes to the Flagyl - Currently treated with Flagyl 100 mL q 8hrs, patient states he does not do well on Flagyl and wants to be switched to Vancomycin - Stool cultures pending, blood cultures pending - Lactic acid .9 3. Hyponatremia - improving, most recent level is 140 - most likely due to diarrhea 4. Dehydration - due to diarrhea and vomiting - continue IV fluids 5. Acute Kidney Injury - Creatinine improving, now 1.5 - continue IV fluids 6. History of Alcohol Withdrawal seizures - drinks 2-3 rum drinks per day - Lorazepam PRN - continue folic acid and thiamine Ally Gibbs Oct 18, 2016 09:19 Toby Garcia MD Oct 19, 2016 11:05
--- NOTE | 2016-10-18 11:48 | HHI.PR ---
Subjective Remarks Patient states that he has worsening abdominal pain and diarrhea every hour Denies nausea or vomiting Denies fevers or chills Patient states diarrhea has a yellow color Objective Vitals Vital Signs Date Time Temp Pulse Resp B/P Pulse Ox O2 Delivery O2 Flow Rate FiO2 10/18/16 08:00 98.3 98 18 144/91 97 10/18/16 00:25 97.0 68 16 126/90 99 10/17/16 20:37 96.9 83 16 149/90 99 10/17/16 17:15 98.5 84 18 128/86 99 10/17/16 16:36 86 16 149/96 97 10/17/16 16:05 16 10/17/16 14:35 87 16 143/88 10/17/16 14:00 16 10/17/16 13:40 96 16 131/78 97 Room Air 10/17/16 13:08 16 10/17/16 12:30 100 16 117/87 100 Room Air 10/17/16 12:22 16 97 Room Air 10/17/16 12:11 16 I/O 10/17/16 10/17/16 10/17/16 10/18/16 10/18/16 10/18/16 07:00 15:00 23:00 07:00 15:00 23:00 Intake Total 1002 ml 1357 ml Balance 1002 ml 1357 ml Intake IV Total 1002 ml 1357 ml # Voids 1 2 Result Diagram: 10/18/16 0543 10/18/16 0543 Imaging Last Impressions Abdomen/Pelvis CT 10/17/16 1216 Signed Impressions: Service Date/Time: Monday, October 17, 2016 12:31 - CONCLUSION: 1. Diverticulosis and suspected hypertrophy of the sigmoid colon. Some degree of diverticulitis cannot be excluded although significant surrounding inflammatory change or an abscess is not seen. 2. Prominent prostate. 3. Minimal bladder wall thickening which may be secondary to lack of distention. Some degree of bowel obstruction also lead to some hypertrophy of the bladder. Alonzo Martinez MD Objective Remarks GENERAL: Well-nourished, well-developed patient in moderate distress due to pain SKIN: Warm and dry. HEAD: Normocephalic. EYES: No scleral icterus. No injection or drainage. NECK: Supple, trachea midline. No JVD or lymphadenopathy. CARDIOVASCULAR: Regular rate and rhythm without murmurs, gallops, or rubs. RESPIRATORY: Breath sounds equal bilaterally. No accessory muscle use. GASTROINTESTINAL: Abdomen soft, diffusely tender to palpation in all quadrants, mildly distended. There is voluntary guarding. MUSCULOSKELETAL: No cyanosis, or edema. BACK: Nontender without obvious deformity. No CVA tenderness. Medications and IVs Current Medications Medications (Trade) Dose Ordered Sig/Quin Route Start Time Stop Time Status Last Admin Sodium Chloride 2 ml 2 ml UNSCH PRN IV FLUSH 10/17/16 12:30 10/17/16 16:21 (NS + KCl 20 Meq Inj) 1,000 ml @ 125 mls/hr Q8H IV 10/17/16 15:01 10/18/16 05:28 (Lactinex) 1 tab Q8H PO 10/17/16 16:00 10/18/16 09:15 (Zofran Inj) 4 mg Q6H PRN IV 10/17/16 15:15 10/18/16 05:33 Enoxaparin Sodium 40 mg 40 mg Q24H SQ 10/17/16 16:00 10/17/16 15:52 (Flagyl 500 Mg Inj) 100 ml @ 100 mls/hr Q8H IV 10/17/16 21:00 10/18/16 05:28 (Romazicon Inj) 0.2 mg Q1M PRN IV PUSH 10/17/16 16:00 (Ativan) 1 mg Q4H PRN PO 10/17/16 16:00 (Ativan Inj) 1 mg Q4H PRN IV PUSH 10/17/16 16:00 (Ativan) 2 mg Q2H PRN PO 10/17/16 16:00 (Ativan Inj) 2 mg Q2H PRN IV PUSH 10/17/16 16:00 (Ativan Inj) 2 mg Q1H PRN IV PUSH 10/17/16 16:00 (Ativan Inj) 2 mg Q15M PRN IV PUSH 10/17/16 16:00 (Vitamin B1) 100 mg DAILY PO 10/17/16 16:00 10/18/16 09:15 (Folate) 1 mg DAILY PO 10/17/16 16:00 10/18/16 09:16 (Tylenol) 650 mg Q4H PRN PO 10/17/16 16:00 (Colace) 100 mg BID PRN PO 10/17/16 16:00 (Milk Of Magnesia Liq) 30 ml DAILY PRN PO 10/17/16 16:00 (Tums Chew) 1,000 mg TID PRN CHEW 10/17/16 16:00 (Restoril) 15 mg HS PRN PO 10/17/16 16:00 ([place] 5-325 Mg) 1 tab Q4H PRN PO 10/17/16 16:00 (Morphine Inj) 2 mg Q4HR PRN IV 10/17/16 16:00 (Narcan Inj) 0.4 mg UNSCH PRN IV 10/17/16 16:00 (VANCOMYCIN for oral use only) 250 mg QID PO 10/18/16 13:00 Urinary Catheter: No Vascular Central Line Catheter: No A/P Problem List: (1) Sepsis ICD Code: A41.9 Status: Acute Plan: Present on admission, patient with leukocytosis, tachycardia and diarrhea. CT abdomen and pelvis showed diverticulosis with some degree of diverticulitis which could not be excluded. Prominent prostate. Minimal bladder wall thickening which is reported to be possibly due to lack of distention. The patient was admitted to the medical floor and started on IV Flagyl Stool studies ordered including Gram stain and culture, WBC, however stool sample was not obtained by nursing staff since yesterday. Discussed with RN and stressed importance to obtain those stool samples. Normal lactic acid Blood cultures negative 1, continue to monitor blood cultures. (2) Leucocytosis ICD Code: D72.829 Status: Acute Plan: Due to sepsis secondary to diarrhea. acidosis is trending down, continue to monitor WBCs. (3) Diarrhea ICD Code: R19.7 Status: Acute Plan: Patient with increased risk factors of recurrent C. difficile colitis Patient was started on Flagyl IV Stool studies ordered however sump was not obtained Given worsening of patient's diarrhea and abdominal pain, I will discontinue IV Flagyl and placed on oral vancomycin. (4) Acute renal failure superimposed on stage 2 chronic kidney disease ICD Code: N17.9 Status: Acute Plan: Likely secondary to nausea, vomiting, diarrhea illness Creatinine trending down. 2.30 on admission, down to 1.50. Continue IV fluids Monitor renal function Avoid nephrotoxins (5) Alcohol abuse ICD Code: F10.10 Status: Acute Plan: We'll need to monitor patient for withdrawal symptoms closely Seizure precautions [place] protocol Thiamine and folic acid No evidence of withdrawal symptoms (6) Hypertension ICD Code: I10 Status: Chronic Plan: BP seems stable. Syncopal held due to acute kidney injury. Continue to hold lisinopril. I will resume amlodipine 5 mg by mouth daily. (7) Hyperglycemia ICD Code: R73.9 Status: Acute Plan: No history of diabetes mellitus. Likely stress induced. I will check hemoglobin A1c. (8) Abdominal pain ICD Code: R10.9 Status: Acute Plan: That the diarrhea with possible diverticulitis and rule out infectious diarrhea. Continue pain control with [place] and morphine sulfate. Assessment and Plan DVT prophylaxis: SCDs, Lovenox subcutaneous. Discharge Planning Continue to monitor in the medical floor. Discharge pending clinical improvement. This patient still with significant diarrhea and abdominal pain. Problem Qualifiers (1) Leucocytosis: Qualified Code: D72.829 - Leukocytosis, unspecified type (2) Hypertension: Qualified Code: I10 - Essential hypertension Toby Garcia MD Oct 18, 2016 11:48
[2016-10-18 12:00] VITALS: BP 136/102; PULSE 86; RESP 20; TEMP 97.3; O2SAT 100
[2016-10-18] MEDS: MORPHINE SULFATE 4 MG/ML INJ IV PRN ×3 (12:22→22:11)
[2016-10-18] MEDS: VANCOMYCIN 500 MG VIAL (FOR ORAL USE ONLY) PO SCH ×3 (12:23→22:11)
[2016-10-18] MEDS ORDERED: VANCOMYCIN 500 MG VIAL (FOR ORAL USE ONLY) PO SCH (13:00)
[2016-10-18 16:00] VITALS: BP 150/96; PULSE 85; RESP 18; TEMP 99.5; O2SAT 100
--- NOTE | 2016-10-18 16:14 | PD.CONS ---
HPI History of Present Illness This is a 61 year old male who presented to the ER for diarrhea and dehydration. He states he woke up Wednesday morning with sudden onset of nausea, vomiting, and diarrhea. Was having lower abdominal cramping 10/10 on pain scale. Denies hematemesis, hematochezia, or melena. night he ate at restaurant ([facility] in [place]) and had steak (medium well). He states that other people ate the same thing and are without symptoms. Medical history significant for C diff colitis, hypertension, GERD, alcohol use, alcohol related seizures, and anxiety. Today patient states he continues to have frequent diarrhea (yellow) and lower abdominal cramping. Has nausea, but no emesis. States last colonoscopy was done by Dr. Walsh about 2 years ago and was normal per patient, repeat in 10 years. PFSH Past Medical History Hypertension History of diverticulitis GERD Arthritis History of pancreatitis Recurrent clostridium difficile Past Surgical History Past Surgical History Rectal surgery Left-sided chest tube Back surgery 2 Neck surgery Left Achilles tendon surgery Left hip hemiarthroplasty Coded Allergies: Bactrim (Verified Allergy, Severe, Diarrhea, 10/17/16) Codeine (Verified Allergy, Severe, RASH, 10/17/16) Levaquin (Verified Allergy, Severe, ACHILLES TENDON PROBLEM, 10/17/16) Medications Current Medications Medications (Trade) Dose Ordered Sig/Quin Route PRN Reason Start Time Stop Time Status Last Admin Dose Admin Sodium Chloride 2 ml 2 ml UNSCH PRN IV FLUSH FLUSH AFTER USING IV ACCESS 10/17/16 12:30 10/17/16 16:21 Potassium Chloride/Sodium Chloride (NS + KCl 20 Meq Inj) 1,000 ml @ 125 mls/hr Q8H IV 10/17/16 15:01 10/18/16 12:27 Lactobacillus Acidophilus (Lactinex) 1 tab Q8H PO 10/17/16 16:00 10/18/16 09:15 Ondansetron HCl (Zofran Inj) 4 mg Q6H PRN IV NAUSEA 10/17/16 15:15 10/18/16 12:19 Enoxaparin Sodium (Lovenox Inj) 40 mg Q24H SQ 10/17/16 16:00 10/17/16 15:52 Flumazenil (Romazicon Inj) 0.2 mg Q1M PRN IV PUSH SEE LABEL COMMENTS 10/17/16 16:00 Lorazepam (Ativan) 1 mg Q4H PRN PO CIWA 8 - 10 10/17/16 16:00 Lorazepam (Ativan Inj) 1 mg Q4H PRN IV PUSH CIWA 8 - 10 10/17/16 16:00 Lorazepam (Ativan) 2 mg Q2H PRN PO CIWA 11-14 10/17/16 16:00 Lorazepam (Ativan Inj) 2 mg Q2H PRN IV PUSH CIWA 11-14 10/17/16 16:00 Lorazepam (Ativan Inj) 2 mg Q1H PRN IV PUSH CIWA 15-20 10/17/16 16:00 Lorazepam (Ativan Inj) 2 mg Q15M PRN IV PUSH CIWA > 20 10/17/16 16:00 Thiamine HCl (Vitamin B1) 100 mg DAILY PO 10/17/16 16:00 10/18/16 09:15 Folic Acid (Folate) 1 mg DAILY PO 10/17/16 16:00 10/18/16 09:16 Acetaminophen (Tylenol) 650 mg Q4H PRN PO Temp > 100.4 10/17/16 16:00 Docusate Sodium (Colace) 100 mg BID PRN PO CONSTIPATION 10/17/16 16:00 Magnesium Hydroxide (Milk Of Magnesia Liq) 30 ml DAILY PRN PO for Severe Constipation 10/17/16 16:00 Calcium Carbonate (Tums Chew) 1,000 mg TID PRN CHEW DYSPEPSIA 10/17/16 16:00 Temazepam (Restoril) 15 mg HS PRN PO INSOMNIA 10/17/16 16:00 Acetaminophen/ Hydrocodone Bitart ([place] 5-325 Mg) 1 tab Q4H PRN PO PAIN SCALE 3 TO 5 10/17/16 16:00 Morphine Sulfate (Morphine Inj) 2 mg Q4HR PRN IV Pain 3-5; if unable to take PO 10/17/16 16:00 10/18/16 12:22 Naloxone HCl (Narcan Inj) 0.4 mg UNSCH PRN IV SEE LABEL COMMENTS 10/17/16 16:00 Vancomycin HCl (VANCOMYCIN for oral use only) 500 mg QID PO 10/18/16 13:00 10/18/16 12:23 Family History Mother--Heart disease, dementia Social History ETOH: 2-3 rum drinks daily Tobacco: Denies Illicit Drugs: Marijuana occasionally Review of Systems Constitutional: DENIES: Diaphoretic episodes, Fatigue, Fever, Weight gain, Weight loss, Chills, Dizziness, Change in appetite, Night Sweats Endocrine: DENIES: Polydipsia, Polyuria Eyes: DENIES: Blurred vision, Photosensitivity, Double Vision Ears, nose, mouth, throat: DENIES: Hearing loss, Vertigo, Oral lesions, Throat pain, Hoarseness Respiratory: DENIES: Cough, Wheezing, Hemoptysis, Sputum production, Shortness of breath Cardiovascular: DENIES: Chest pain, Palpitations, Syncope, Lower Extremity Edema, Orthopnea, Claudication Gastrointestinal: COMPLAINS OF: Abdominal pain, Diarrhea, Nausea, Vomiting, DENIES: Black stools, Bloody stools, Constipation, Difficulty Swallowing, Anorexia, Odynophagia, Swelling of Abdomen, Heartburn, Hematemesis Genitourinary: DENIES: Urinary frequency, Urinary incontinence, Urgency, Hematuria, Dysuria, Nocturia Musculoskeletal: DENIES: Joint pain, Muscle aches, Stiffness, Joint Swelling, Back pain, Neck pain Integumentary: DENIES: Abnormal pigmentation, Nail changes, Pruritus, Rash, Jaundice Hematologic/lymphatic: DENIES: Bruising, Lymphadenopathy Immunologic/allergic: DENIES: Eczema, Urticaria Neurologic: DENIES: Abnormal gait, Headache, Localized weakness, Paresthesias Psychiatric: DENIES: Anxiety, Confusion, Mood changes, Depression, Agitation, Suicidal Ideation GI Exam Vitals I&O Vital Signs Date Time Temp Pulse Resp B/P Pulse Ox O2 Delivery O2 Flow Rate FiO2 10/18/16 12:00 97.3 86 20 136/102 100 10/18/16 08:00 98.3 98 18 144/91 97 10/18/16 00:25 97.0 68 16 126/90 99 10/17/16 20:37 96.9 83 16 149/90 99 10/17/16 17:15 98.5 84 18 128/86 99 10/17/16 16:36 86 16 149/96 97 10/17/16 16:05 16 I/O 10/17/16 10/17/16 10/17/16 10/18/16 10/18/16 10/18/16 07:00 15:00 23:00 07:00 15:00 23:00 Intake Total 1002 ml 1357 ml 850 ml Balance 1002 ml 1357 ml 850 ml Intake Oral 850 ml IV Total 1002 ml 1357 ml # Voids 1 2 5 # Bowel Movements 3 Imaging Last Impressions Abdomen/Pelvis CT 10/17/16 1216 Signed Impressions: Service Date/Time: Monday, October 17, 2016 12:31 - CONCLUSION: 1. Diverticulosis and suspected hypertrophy of the sigmoid colon. Some degree of diverticulitis cannot be excluded although significant surrounding inflammatory change or an abscess is not seen. 2. Prominent prostate. 3. Minimal bladder wall thickening which may be secondary to lack of distention. Some degree of bowel obstruction also lead to some hypertrophy of the bladder. Alonzo Martinez MD Laboratory Test 10/17/16 10/18/16 16:08 05:43 Lactic Acid Level 0.9 mmol/L White Blood Count 11.1 TH/MM3 Red Blood Count 3.48 MIL/MM3 Hemoglobin 10.4 GM/DL Hematocrit 31.6 % Mean Corpuscular Volume 90.9 FL Mean Corpuscular Hemoglobin 29.8 PG Mean Corpuscular Hemoglobin 32.8 % Concent Red Cell Distribution Width 16.4 % Platelet Count 326 TH/MM3 Mean Platelet Volume 9.0 FL Neutrophils (%) (Auto) 74.5 % Lymphocytes (%) (Auto) 15.4 % Monocytes (%) (Auto) 9.0 % Eosinophils (%) (Auto) 0.8 % Basophils (%) (Auto) 0.3 % Neutrophils # (Auto) 8.3 TH/MM3 Lymphocytes # (Auto) 1.7 TH/MM3 Monocytes # (Auto) 1.0 TH/MM3 Eosinophils # (Auto) 0.1 TH/MM3 Basophils # (Auto) 0.0 TH/MM3 CBC Comment DIFF FINAL Differential Comment Sodium Level 140 MEQ/L Potassium Level 4.9 MEQ/L Chloride Level 109 MEQ/L Carbon Dioxide Level 19.6 MEQ/L Anion Gap 11 MEQ/L Blood Urea Nitrogen 30 MG/DL Creatinine 1.50 MG/DL Estimat Glomerular Filtration 47 ML/MIN Rate Random Glucose 96 MG/DL Calcium Level 8.7 MG/DL Date/Time Procedure Status Source Growth 10/18/16 11:55 Rotavirus Antigen Received Stool Stool Pending 10/18/16 11:55 Cryptosporidium Exam Received Stool Stool Pending 10/18/16 11:55 Stool Pus (ALYSSIA) Received Stool Stool Pending 10/18/16 11:55 Giardia Antigen (ALYSSIA) Received Stool Stool Pending 10/18/16 11:55 Received Stool Stool Pending 10/17/16 15:50 Aerobic Blood Culture - Preliminary Resulted Blood Peripheral NO GROWTH IN 1 DAY 10/17/16 15:50 Anaerobic Blood Culture - Preliminary Resulted Blood Peripheral NO GROWTH IN 1 DAY Physical Examination HEENT: PERRLA; normocephalic; atraumatic; no jaundice. Throat is clear. NECK: Neck is supple, no JVD, no lymphadenopathy. CHEST: CTA CARDIAC: RRR ABDOMEN: Soft, nondistended, LLQ TTP; no hepatosplenomegaly; bowel sounds x 4 quadrants. EXTREMITIES: No clubbing, cyanosis, or edema. SKIN: Normal; no rash; no jaundice. HOUSE BUILDER: No focal deficits; alert and oriented x 3. Assessment and Plan Plan ASSESSMENT: Diarrhea, acute, patient having frequent episodes of diarrhea (yellow). Stool cultures ordered, pending results. Patient with history of recurrent C diff. On Flagyl. Abdomen/Pelvis CT 10/17/16--1. Diverticulosis and suspected hypertrophy of the sigmoid colon. Some degree of diverticulitis cannot be excluded although significant surrounding inflammatory change or an abscess is not seen. 2. Prominent prostate. 3. Minimal bladder wall thickening which may be secondary to lack of distention. Some degree of bowel obstruction also lead to some hypertrophy of the bladder. HH 13.4/41.2 (10/17)---->10.4/31.6 (10/18) Sepsis, Leukocytosis, acute, WBC 14.8 (10/17), 11.1 (10/18). On Flagyl. Lactic acid 0.9. Acute renal failure, likely secondary to nausea, vomiting, and diarrhea. Hydrate. Monitor renal function. Alcohol abuse, per attending. Seizure precautions, CIWA protocol PLAN: - IV fluids - Continue Flagyl - Monitor labs - Monitor HH - Await stool studies - If negative stool studies, consider colonoscopy evaluation - Further recommendations to follow based on results of above Patient seen and examined by Dr. Corona and myself and this note is written on his behalf. Rossi Pak Oct 18, 2016 16:13
[2016-10-18 17:00] LABS: C. DIFF EPI 027 PRESUMPTIVE NEGATIVE (NEGATIVE); C. DIFF TOXIN PCR NEGATIVE (NEGATIVE)
[2016-10-18] MEDS: ENOXAPARIN SODIUM 40 MG/0.4 ML SYRINGE SQ SCH (18:06)
[2016-10-18 19:47] VITALS: BP 166/96; PULSE 100; RESP 16; TEMP 97.8; O2SAT 98
[2016-10-18] MEDS: TEMAZEPAM 15 MG CAP PO PRN (23:02)
[2016-10-19 00:23] VITALS: BP 153/95; PULSE 82; RESP 18; TEMP 97.3; O2SAT 98
[2016-10-19 07:59] VITALS: BP 155/110; PULSE 85; RESP 19; TEMP 98.3; O2SAT 99
--- NOTE | 2016-10-19 09:21 | PD.PN.STU ---
Subjective Remarks Feeling much better Still has some abdominal pain but it has significantly improved Had diarrhea this morning but it was light brown loose stool, improved from yesterday Denies vomiting, nausea, SOB, CP Blood pressure is slightly elevated today Objective Vitals Vital Signs Date Time Temp Pulse Resp B/P Pulse Ox O2 Delivery O2 Flow Rate FiO2 10/19/16 07:59 98.3 85 19 155/110 99 10/19/16 05:11 10/19/16 00:23 97.3 82 18 153/95 98 10/18/16 19:47 97.8 100 16 166/96 98 10/18/16 16:00 99.5 85 18 150/96 100 10/18/16 12:00 97.3 86 20 136/102 100 I/O 10/18/16 10/18/16 10/18/16 10/19/16 10/19/16 10/19/16 07:00 15:00 23:00 07:00 15:00 23:00 Intake Total 1357 ml 850 ml 1454 ml Balance 1357 ml 850 ml 1454 ml Intake Oral 850 ml IV Total 1357 ml 1454 ml # Voids 2 5 6 4 # Bowel Movements 3 6 4 Result Diagram: 10/18/16 0543 10/18/16 0543 Objective Remarks GENERAL: Pleasant and well appearing male in no acute distress SKIN: Warm and dry. HEAD: Normocephalic. EYES: No scleral icterus. No injection or drainage. NECK: Supple, trachea midline. No JVD or lymphadenopathy. CARDIOVASCULAR: Regular rate and rhythm without murmurs, gallops, or rubs. RESPIRATORY: Breath sounds equal bilaterally. No accessory muscle use. GASTROINTESTINAL: Abdomen soft, non-tender, nondistended. A/P Assessment and Plan 1. Leukocytosis - WBC count trending down, 11.1 - vital signs are stable, afebrile 2. Nonspecific diarrheal illness - he has a history of C. Diff infections that began after Achilles tendon surgery in 2014 when he was given Bactrim - had loose stool this morning but has improved since yesterday, he is clinically much better - Currently treated with Vancomycin 500 mg po QID - Stool testing negative for C. Diff, blood cultures are negative 3. Hyponatremia - improving, most recent level is 140 - most likely due to diarrhea 4. Dehydration - due to diarrhea and vomiting - improved with IV fluids 5. Acute Kidney Injury - Creatinine improving - continue IV fluids 6. History of Alcohol Withdrawal seizures - drinks 2-3 rum drinks per day - Lorazepam PRN - continue folic acid and thiamine 7. Hypertension - today BP is increased, he has a history of HTN and takes medications at home - Give Clonidine .1 mg PRN Ally Gibbs M3 Oct 19, 2016 09:21
[2016-10-19] MEDS: NS + KCL 20 MEQ INJ 1,000 ML IV SCH ×3 (09:42→19:51)
[2016-10-19] MEDS: cloNIDine HCL 0.1 MG TAB PO PRN (09:43)
[2016-10-19] MEDS: FOLIC ACID 1 MG TAB PO SCH (09:43)
[2016-10-19] MEDS: THIAMINE HCL 100 MG TAB PO SCH (09:43)
[2016-10-19] MEDS: LACTOBACILLUS ACIDOPHILUS TAB PO SCH ×3 (09:43→23:42)
[2016-10-19] MEDS: VANCOMYCIN 500 MG VIAL (FOR ORAL USE ONLY) PO SCH (09:43)
[2016-10-19] MEDS: amLODIPine BESYLATE 5 MG TAB PO SCH (09:58)
--- NOTE | 2016-10-19 10:03 | PD.PN.STU ---
Subjective Remarks S: patient is a 61 year old male who presents for GI follow up. He states that today the diarrhea is better, with less episodes. The stool is still loose and a light brown color. He has abdominal pain in the lower abdomen and grades it a 7/10. He denies nausea/vomiting, he had a fever yesterday, but today he says he feels fine; no chills Denies chest pain, SOB, headaches, but has been experiencing a dry cough that started last night. Remaining ROS unremarkable patient was seen and examined by me, agree with above note Objective Vitals Vital Signs Date Time Temp Pulse Resp B/P Pulse Ox O2 Delivery O2 Flow Rate FiO2 10/19/16 07:59 98.3 85 19 155/110 99 10/19/16 05:11 10/19/16 00:23 97.3 82 18 153/95 98 10/18/16 19:47 97.8 100 16 166/96 98 10/18/16 16:00 99.5 85 18 150/96 100 10/18/16 12:00 97.3 86 20 136/102 100 I/O 10/18/16 10/18/16 10/18/16 10/19/16 10/19/16 10/19/16 07:00 15:00 23:00 07:00 15:00 23:00 Intake Total 1357 ml 850 ml 1454 ml Balance 1357 ml 850 ml 1454 ml Intake Oral 850 ml IV Total 1357 ml 1454 ml # Voids 2 5 6 4 # Bowel Movements 3 6 4 O: General: WDWN, appropriate affect and behavior HEENT: negative Neck: supple, (-) LAD Heart: RRR nl S1, S2; no murmurs Lungs: CTA Abdomen: soft, mildly tender upon palpation of the LLQ and umbilical region; non distended. normal bowel sounds, no HSM or masses appreciated Ext: no edema or cyanosis Neuro: alert and oriented x 3; no focal deficits Result Diagram: 10/18/1654210/18/16 05 Other Results Laboratory Tests Test 10/17/16 10/18/16 12:29 05:43 White Blood Count 14.8 TH/MM3 11.1 TH/MM3 (4.0-11.0) (4.0-11.0) Neutrophils (%) (Auto) 81.4 % 74.5 % (16.0-70.0) (16.0-70.0) Neutrophils # (Auto) 12.1 TH/MM3 8.3 TH/MM3 (1.8-7.7) (1.8-7.7) Basophils # (Auto) 0.3 TH/MM3 (0-0.2) Sodium Level 133 MEQ/L (136-145) Carbon Dioxide Level 18.5 MEQ/L 19.6 MEQ/L (21.0-32.0) (21.0-32.0) Anion Gap 16 MEQ/L (5-15) Blood Urea Nitrogen 38 MG/DL (7-18) 30 MG/DL (7-18) Creatinine 2.30 MG/DL 1.50 MG/DL (0.60-1.30) (0.60-1.30) Estimat Glomerular Filtration 29 ML/MIN (>89) 47 ML/MIN (>89) Rate Random Glucose 129 MG/DL (74-106) Calcium Level 10.3 MG/DL (8.5-10.1) Total Protein 8.8 GM/DL (6.4-8.2) Red Blood Count 3.48 MIL/MM3 (4.50-5.90) Hemoglobin 10.4 GM/DL (13.0-17.0) Hematocrit 31.6 % (39.0-51.0) Monocytes (%) (Auto) 9.0 % (0.0-8.0) Monocytes # (Auto) 1.0 TH/MM3 (0-0.9) Chloride Level 109 MEQ/L (98-107) Imaging Last 72 hours Impressions Abdomen/Pelvis CT 10/17/16 1216 Signed Impressions: Service Date/Time: Monday, October 17, 2016 12:31 - CONCLUSION: 1. Diverticulosis and suspected hypertrophy of the sigmoid colon. Some degree of diverticulitis cannot be excluded although significant surrounding inflammatory change or an abscess is not seen. 2. Prominent prostate. 3. Minimal bladder wall thickening which may be secondary to lack of distention. Some degree of bowel obstruction also lead to some hypertrophy of the bladder. Alonzo Martinez MD Medications and IVs Current Medications Medications (Trade) Dose Ordered Sig/Quin Route Start Time Stop Time Status Last Admin Sodium Chloride 2 ml 2 ml UNSCH PRN IV FLUSH 10/17/16 12:30 10/17/16 16:21 (NS + KCl 20 Meq Inj) 1,000 ml @ 125 mls/hr Q8H IV 10/17/16 15:01 10/19/16 09:42 (Lactinex) 1 tab Q8H PO 10/17/16 16:00 10/19/16 09:43 (Zofran Inj) 4 mg Q6H PRN IV 10/17/16 15:15 10/18/16 23:02 (Lovenox Inj) 40 mg Q24H SQ 10/17/16 16:00 10/18/16 18:06 (Romazicon Inj) 0.2 mg Q1M PRN IV PUSH 10/17/16 16:00 (Ativan) 1 mg Q4H PRN PO 10/17/16 16:00 (Ativan Inj) 1 mg Q4H PRN IV PUSH 10/17/16 16:00 (Ativan) 2 mg Q2H PRN PO 10/17/16 16:00 (Ativan Inj) 2 mg Q2H PRN IV PUSH 10/17/16 16:00 (Ativan Inj) 2 mg Q1H PRN IV PUSH 10/17/16 16:00 (Ativan Inj) 2 mg Q15M PRN IV PUSH 10/17/16 16:00 (Vitamin B1) 100 mg DAILY PO 10/17/16 16:00 10/19/16 09:43 (Folate) 1 mg DAILY PO 10/17/16 16:00 10/19/16 09:43 (Tylenol) 650 mg Q4H PRN PO 10/17/16 16:00 (Colace) 100 mg BID PRN PO 10/17/16 16:00 (Milk Of Magnesia Liq) 30 ml DAILY PRN PO 10/17/16 16:00 (Tums Chew) 1,000 mg TID PRN CHEW 10/17/16 16:00 (Restoril) 15 mg HS PRN PO 10/17/16 16:00 10/18/16 23:02 ([place] 5-325 Mg) 1 tab Q4H PRN PO 10/17/16 16:00 10/19/16 09:45 (Morphine Inj) 2 mg Q4HR PRN IV 10/17/16 16:00 10/18/16 22:11 (Narcan Inj) 0.4 mg UNSCH PRN IV 10/17/16 16:00 (VANCOMYCIN for oral use only) 500 mg QID PO 10/18/16 13:00 10/19/16 09:43 (Catapres) 0.1 mg Q6H PRN PO 10/19/16 08:00 10/19/16 09:43 (Norvasc) 5 mg DAILY PO 10/19/16 09:45 UNV (Prinivil) 20 mg DAILY PO 10/20/16 09:00 UNV A/P Assessment and Plan A: 1. Acute Diarrhea P: 1. await stool culture results; if etiology still unclear, consider colonoscopy 2. continue IV fluids and antibiotics 3. monitor labs and Hgb/Hct patient was seen and examined by me, agree with above note if diarrhea no better , patient will need colonoscopy patient also has anemia, he will need colon EGD as out patient. Nelli Stewart Oct 19, 2016 10:03 Harrison Corona MD Oct 19, 2016 17:02
[2016-10-19 11:03] LABS: AUTOMATED NEUTROPHIL # 10.4 TH/MM3 (1.8-7.7); BASOPHIL % 0.3 % (0.0-2.0); EOSINOPHIL # 0.1 TH/MM3 (0-0.4); EOSINOPHIL % 1.1 % (0.0-4.0); HEMATOCRIT 31.4 % (39.0-51.0); HEMO FLAGS DIFF FINAL; LYMPH % 9.8 % (9.0-44.0); LYMPHOCYTE # 1.2 TH/MM3 (1.0-4.8); MEAN CELL VOLUME 91.3 FL (80.0-100.0); MEAN CORPUSCULAR HEMOGLOBIN 28.7 PG (27.0-34.0); MEAN CORPUSCULAR HGB CONC 31.4 % (32.0-36.0); MONO % 6.4 % (0.0-8.0); NEUT % 82.4 % (16.0-70.0); PLATELET COUNT 290 TH/MM3 (150-450); RED BLOOD COUNT 3.43 MIL/MM3 (4.50-5.90); RED CELL DISTRIBUTION WIDTH 15.8 % (11.6-17.2); WHITE BLOOD COUNT 12.4 TH/MM3 (4.0-11.0)
[2016-10-19 11:07] LABS: CHLORIDE 111 MEQ/L (98-107); POTASSIUM 5.3 MEQ/L (3.5-5.1); SODIUM (NA) 137 MEQ/L (136-145)
[2016-10-19 11:19] LABS: ALKALINE PHOSPHATASE 46 U/L (45-117); ALT (GPT) 17 U/L (12-78); ANION GAP 10 MEQ/L (5-15); AST (GOT) 13 U/L (15-37); BICARBONATE 16.2 MEQ/L (21.0-32.0); BLOOD UREA NITROGEN 15 MG/DL (7-18); GLOMERULAR FILTRATION RATE 68 ML/MIN (>89); TOTAL BILIRUBIN ADULT 0.5 MG/DL (0.2-1.0)
--- NOTE | 2016-10-19 11:21 | HHI.PR ---
Subjective Remarks Patient states abdominal pain is much improved denies fevers/chills diarrhea has improved significantly BP noted to be elevated Objective Vitals Vital Signs Date Time Temp Pulse Resp B/P Pulse Ox O2 Delivery O2 Flow Rate FiO2 10/19/16 07:59 98.3 85 19 155/110 99 10/19/16 05:11 10/19/16 00:23 97.3 82 18 153/95 98 10/18/16 19:47 97.8 100 16 166/96 98 10/18/16 16:00 99.5 85 18 150/96 100 10/18/16 12:00 97.3 86 20 136/102 100 I/O 10/18/16 10/18/16 10/18/16 10/19/16 10/19/16 10/19/16 07:00 15:00 23:00 07:00 15:00 23:00 Intake Total 1357 ml 850 ml 1454 ml Balance 1357 ml 850 ml 1454 ml Intake Oral 850 ml IV Total 1357 ml 1454 ml # Voids 2 5 6 4 # Bowel Movements 3 6 4 Result Diagram: 10/18/16 0543 10/18/16 0543 Imaging Last Impressions Abdomen/Pelvis CT 10/17/16 1216 Signed Impressions: Service Date/Time: Monday, October 17, 2016 12:31 - CONCLUSION: 1. Diverticulosis and suspected hypertrophy of the sigmoid colon. Some degree of diverticulitis cannot be excluded although significant surrounding inflammatory change or an abscess is not seen. 2. Prominent prostate. 3. Minimal bladder wall thickening which may be secondary to lack of distention. Some degree of bowel obstruction also lead to some hypertrophy of the bladder. Alonzo Martinez MD Objective Remarks GENERAL: Well-nourished, well-developed patient in moderate distress due to pain SKIN: Warm and dry. HEAD: Normocephalic. EYES: No scleral icterus. No injection or drainage. NECK: Supple, trachea midline. No JVD or lymphadenopathy. CARDIOVASCULAR: Regular rate and rhythm without murmurs, gallops, or rubs. RESPIRATORY: Breath sounds equal bilaterally. No accessory muscle use. GASTROINTESTINAL: Abdomen soft, diffusely tender to palpation in all quadrants, mildly distended. There is voluntary guarding. MUSCULOSKELETAL: No cyanosis, or edema. BACK: Nontender without obvious deformity. No CVA tenderness. Procedures none Medications and IVs Current Medications Medications (Trade) Dose Ordered Sig/Quin Route Start Time Stop Time Status Last Admin Sodium Chloride 2 ml 2 ml UNSCH PRN IV FLUSH 10/17/16 12:30 10/17/16 16:21 (NS + KCl 20 Meq Inj) 1,000 ml @ 125 mls/hr Q8H IV 10/17/16 15:01 10/19/16 09:42 (Lactinex) 1 tab Q8H PO 10/17/16 16:00 10/19/16 09:43 (Zofran Inj) 4 mg Q6H PRN IV 10/17/16 15:15 10/18/16 23:02 (Lovenox Inj) 40 mg Q24H SQ 10/17/16 16:00 10/18/16 18:06 (Romazicon Inj) 0.2 mg Q1M PRN IV PUSH 10/17/16 16:00 (Ativan) 1 mg Q4H PRN PO 10/17/16 16:00 (Ativan Inj) 1 mg Q4H PRN IV PUSH 10/17/16 16:00 (Ativan) 2 mg Q2H PRN PO 10/17/16 16:00 (Ativan Inj) 2 mg Q2H PRN IV PUSH 10/17/16 16:00 (Ativan Inj) 2 mg Q1H PRN IV PUSH 10/17/16 16:00 (Ativan Inj) 2 mg Q15M PRN IV PUSH 10/17/16 16:00 (Vitamin B1) 100 mg DAILY PO 10/17/16 16:00 10/19/16 09:43 (Folate) 1 mg DAILY PO 10/17/16 16:00 10/19/16 09:43 (Tylenol) 650 mg Q4H PRN PO 10/17/16 16:00 (Colace) 100 mg BID PRN PO 10/17/16 16:00 (Milk Of Magnesia Liq) 30 ml DAILY PRN PO 10/17/16 16:00 (Tums Chew) 1,000 mg TID PRN CHEW 10/17/16 16:00 (Restoril) 15 mg HS PRN PO 10/17/16 16:00 10/18/16 23:02 ([place] 5-325 Mg) 1 tab Q4H PRN PO 10/17/16 16:00 10/19/16 09:45 (Morphine Inj) 2 mg Q4HR PRN IV 10/17/16 16:00 10/18/16 22:11 (Narcan Inj) 0.4 mg UNSCH PRN IV 10/17/16 16:00 (VANCOMYCIN for oral use only) 500 mg QID PO 10/18/16 13:00 10/19/16 09:43 (Catapres) 0.1 mg Q6H PRN PO 10/19/16 08:00 10/19/16 09:43 (Norvasc) 5 mg DAILY PO 10/19/16 10:00 10/19/16 09:58 (Prinivil) 20 mg DAILY PO 10/20/16 09:00 Urinary Catheter: No Vascular Central Line Catheter: No A/P Problem List: (1) Sepsis ICD Code: A41.9 Status: Acute Plan: Present on admission, patient with leukocytosis, tachycardia and diarrhea. CT abdomen and pelvis showed diverticulosis with some degree of diverticulitis which could not be excluded. Prominent prostate. Minimal bladder wall thickening which is reported to be possibly due to lack of distention. The patient was admitted to the medical floor and started on IV Flagyl Normal lactic acid Blood cultures negative 1, continue to monitor blood cultures. 10/18 stool studies do not show any WBCs, c diff negative, no enteric pathogens detected by PCR, negative rotavirus, cryptosporidia medium and Giardia antigen pending. Will Dc Oral vancomycin since C diff negative and place on IV Zosyn. Continue probiotics. (2) Leucocytosis ICD Code: D72.829 Status: Acute Plan: Due to sepsis secondary to diarrhea. WBC is trending down, continue to monitor CBC (3) Diarrhea ICD Code: R19.7 Status: Acute Plan: Patient with increased risk factors of recurrent C. difficile colitis Patient was started on Flagyl IV Patient had worsening diarrhea and abdominal pain. IV Flagyl was discontinued and patient started on oral Vancomycin. 10/18 Diarrhea improving. Antibiotics as above. (4) Acute renal failure superimposed on stage 2 chronic kidney disease ICD Code: N17.9 Status: Acute Plan: Likely secondary to nausea, vomiting, diarrhea illness Creatinine trending down. 2.30 on admission, down to 1.50. Continue IV fluids Monitor renal function Avoid nephrotoxins 10/19 today's labs pending (5) Alcohol abuse ICD Code: F10.10 Status: Acute Plan: We'll need to monitor patient for withdrawal symptoms closely Seizure precautions CIWA protocol Thiamine and folic acid No evidence of withdrawal symptoms (6) Hypertension ICD Code: I10 Status: Chronic Plan: BP initially stable. Home antihypertensives held on admission including PHOEBE inhibitor due to acute kidney injury. BP stable for the first couple days. 10/19 BP elevated with sbp into the systolic 150's. Will resume amlodipine. Today 's creatinine still pending but if normal then will resume PHOEBE as well. (7) Hyperglycemia ICD Code: R73.9 Status: Acute Plan: No history of diabetes mellitus. Likely stress induced. I will check hemoglobin A1c. 10/19 Blood sugars stable. Hemoglobin A1c ordered. (8) Abdominal pain ICD Code: R10.9 Status: Acute Plan: Due to diarrhea with possible diverticulitis and rule out infectious diarrhea. Continue pain control with [place] and morphine sulfate. 10/19 Seems to be much improved. Continue IV antibiotics as above and continue pain control with oral and IV opiates. Assessment and Plan DVT prophylaxis: SCDs, Lovenox subcutaneous. Discharge Planning Continue to monitor in the medical floor. Discharge pending clinical improvement. Problem Qualifiers (1) Leucocytosis: Qualified Code: D72.829 - Leukocytosis, unspecified type (2) Hypertension: Qualified Code: I10 - Essential hypertension (3) Abdominal pain: Qualified Code: R10.84 - Generalized abdominal pain Toby Garcia MD Oct 19, 2016 11:21
[2016-10-19 12:10] VITALS: BP 124/84; PULSE 77; RESP 19; TEMP 97.3; O2SAT 100
[2016-10-19] MEDS: traMADol HCL 50 MG TAB PO PRN ×3 (12:47→20:46)
[2016-10-19] MEDS: PIPERACIL-TAZO 4.5 GM PREMIX 100 ML IV SCH ×2 (12:47→19:51)
[2016-10-19 15:07] LABS: HEMOGLOBIN A1a 1.3 %; HEMOGLOBIN A1b 1.4 %; HEMOGLOBIN Ao 85.3 %; HEMOGLOBIN LA1C 2.2 %; HEMOGLOBIN P3 3.7 %
[2016-10-19] MEDS: guaiFENesin/DEXTROMETHORPHAN 200 MG/20 MG/10 ML CUP PO PRN (16:24)
[2016-10-19] MEDS: ENOXAPARIN SODIUM 40 MG/0.4 ML SYRINGE SQ SCH (16:25)
[2016-10-19 17:08] VITALS: BP 140/91; PULSE 70; RESP 19; TEMP 97.4; O2SAT 100
[2016-10-19 20:00] VITALS: BP 157/94; PULSE 80; RESP 18; TEMP 97.3; O2SAT 100
[2016-10-19] MEDS: TEMAZEPAM 15 MG CAP PO PRN (20:46)
[2016-10-20] VITALS: BP 161/100; PULSE 73; RESP 18; TEMP 96.8; O2SAT 96
[2016-10-20] MEDS: cloNIDine HCL 0.1 MG TAB PO PRN (01:08)
[2016-10-20] MEDS: PIPERACIL-TAZO 4.5 GM PREMIX 100 ML IV SCH ×3 (03:59→23:06)
[2016-10-20] MEDS: NS + KCL 20 MEQ INJ 1,000 ML IV SCH (04:04)
[2016-10-20] MEDS: FOLIC ACID 1 MG TAB PO SCH (07:12)
[2016-10-20] MEDS: THIAMINE HCL 100 MG TAB PO SCH (07:13)
[2016-10-20] MEDS: traMADol HCL 50 MG TAB PO PRN ×4 (07:13→23:26)
[2016-10-20] MEDS: LACTOBACILLUS ACIDOPHILUS TAB PO SCH ×3 (07:13→23:06)
[2016-10-20] MEDS: amLODIPine BESYLATE 5 MG TAB PO SCH (07:13)
[2016-10-20] MEDS: LISINOPRIL 20 MG TAB PO SCH (07:13)
[2016-10-20] MEDS: guaiFENesin/DEXTROMETHORPHAN 200 MG/20 MG/10 ML CUP PO PRN ×2 (07:14→16:15)
[2016-10-20 08:34] LABS: AUTOMATED NEUTROPHIL # 5.2 TH/MM3 (1.8-7.7); BASOPHIL % 0.7 % (0.0-2.0); EOSINOPHIL # 0.2 TH/MM3 (0-0.4); EOSINOPHIL % 2.3 % (0.0-4.0); HEMATOCRIT 30.8 % (39.0-51.0); LYMPH % 14.6 % (9.0-44.0); MEAN CELL VOLUME 92.3 FL (80.0-100.0); MEAN CORPUSCULAR HEMOGLOBIN 29.9 PG (27.0-34.0); MEAN CORPUSCULAR HGB CONC 32.4 % (32.0-36.0); MONO % 9.5 % (0.0-8.0); NEUT % 72.9 % (16.0-70.0); PLATELET COUNT 233 TH/MM3 (150-450); RED BLOOD COUNT 3.34 MIL/MM3 (4.50-5.90); RED CELL DISTRIBUTION WIDTH 15.5 % (11.6-17.2); WHITE BLOOD COUNT 7.1 TH/MM3 (4.0-11.0)
[2016-10-20 08:37] VITALS: BP 140/93; PULSE 75; RESP 18; TEMP 96.7; O2SAT 100
[2016-10-20 08:40] LABS: CHLORIDE 110 MEQ/L (98-107); HEMO FLAGS AUTO DIFF; POTASSIUM 5.1 MEQ/L (3.5-5.1); SODIUM (NA) 137 MEQ/L (136-145)
[2016-10-20 08:43] LABS: ANION GAP 12 MEQ/L (5-15); BICARBONATE 15.3 MEQ/L (21.0-32.0); MAGNESIUM 0.7 MG/DL (1.5-2.5)
[2016-10-20 08:44] LABS: BLOOD UREA NITROGEN 11 MG/DL (7-18)
[2016-10-20 08:46] LABS: ALT (GPT) 14 U/L (12-78); AST (GOT) 11 U/L (15-37)
[2016-10-20 08:47] LABS: GLOMERULAR FILTRATION RATE 68 ML/MIN (>89)
[2016-10-20 08:48] LABS: TOTAL BILIRUBIN ADULT 0.4 MG/DL (0.2-1.0)
[2016-10-20 08:49] LABS: ALKALINE PHOSPHATASE 39 U/L (45-117)
[2016-10-20 09:24] LABS: PLATELET ESTIMATE SMEAR NORMAL (NORMAL); PLATELET MORPHOLOGY NORMAL (NORMAL); SCAN/DIFF AUTO DIFF CONFIRMED
--- NOTE | 2016-10-20 09:27 | PD.PN.STU ---
Subjective Remarks S: Patient is a 61 year old male who presents for GI follow up. Patient states that he feels tired today. He is still having multiple episodes of diarrhea but says they're not as loose, and a normal brown color In the last day, he says he's had about 10 episodes. he was able to eat 2 solid meals yesterday. He has a little abdominal pain, but no nausea/vomiting He denies fever, chills, chest pain, SOB, or recent headaches. Remaining ROS unremarkable. patient was seen and examine by me (Cj SANTOS) Objective Vitals Vital Signs Date Time Temp Pulse Resp B/P Pulse Ox O2 Delivery O2 Flow Rate FiO2 10/20/16 08:37 96.7 75 18 140/93 100 10/20/16 00:00 96.8 73 18 161/100 96 10/19/16 20:00 97.3 80 18 157/94 100 10/19/16 17:08 97.4 70 19 140/91 100 10/19/16 12:10 97.3 77 19 124/84 100 I/O 10/19/16 10/19/16 10/19/16 10/20/16 10/20/16 10/20/16 07:00 15:00 23:00 07:00 15:00 23:00 Intake Total 980 ml 240 ml Output Total 300 ml Balance 680 ml 240 ml Intake Oral 980 ml 240 ml Output Urine Total 300 ml # Voids 4 4 3 # Bowel Movements 4 1 0 O: Gen: WDWN, doesn't appear to be in acute distress HEENT: negative Neck: supple, (-) LAD Heart: RRR, nl S1,S2 Lungs: CTA Abdomen: soft, nontender, nondistended; normal bowel sounds, no HSM or masses appreciated Ext: no edema or cyanosis Neuro: alert and oriented x 3; no focal deficits mild RLQ tenderness, agree with above exam Result Diagram: 10/20/16 0750 10/20/16 0750 Other Results Laboratory Tests Test 10/17/16 10/18/16 10/19/16 10/20/16 12:29 05:43 10:12 07:50 White Blood Count 14.8 TH/MM3 11.1 TH/MM3 12.4 TH/MM3 (4.0-11.0) (4.0-11.0) (4.0-11.0) Neutrophils (%) (Auto) 81.4 % 74.5 % 82.4 % 72.9 % (16.0-70.0) (16.0-70.0) (16.0-70.0) (16.0-70.0) Neutrophils # (Auto) 12.1 TH/MM3 8.3 TH/MM3 10.4 TH/MM3 (1.8-7.7) (1.8-7.7) (1.8-7.7) Basophils # (Auto) 0.3 TH/MM3 (0-0.2) Sodium Level 133 MEQ/L (136-145) Carbon Dioxide Level 18.5 MEQ/L 19.6 MEQ/L 16.2 MEQ/L 15.3 MEQ/L (21.0-32.0) (21.0-32.0) (21.0-32.0) (21.0-32.0) Anion Gap 16 MEQ/L (5-15) Blood Urea Nitrogen 38 MG/DL (7-18) 30 MG/DL (7-18) Creatinine 2.30 MG/DL 1.50 MG/DL (0.60-1.30) (0.60-1.30) Estimat Glomerular Filtration 29 ML/MIN (>89) 47 ML/MIN (>89) 68 ML/MIN (>89) 68 ML/MIN (>89) Rate Random Glucose 129 MG/DL (74-106) Calcium Level 10.3 MG/DL (8.5-10.1) Total Protein 8.8 GM/DL (6.4-8.2) Red Blood Count 3.48 MIL/MM3 3.43 MIL/MM3 3.34 MIL/MM3 (4.50-5.90) (4.50-5.90) (4.50-5.90) Hemoglobin 10.4 GM/DL 9.9 GM/DL 10.0 GM/DL (13.0-17.0) (13.0-17.0) (13.0-17.0) Hematocrit 31.6 % 31.4 % 30.8 % (39.0-51.0) (39.0-51.0) (39.0-51.0) Monocytes (%) (Auto) 9.0 % (0.0-8.0) 9.5 % (0.0-8.0) Monocytes # (Auto) 1.0 TH/MM3 (0-0.9) Chloride Level 109 MEQ/L 111 MEQ/L 110 MEQ/L (98-107) (98-107) (98-107) Mean Corpuscular Hemoglobin 31.4 % Concent (32.0-36.0) Potassium Level 5.3 MEQ/L (3.5-5.1) Aspartate Amino Transf 13 U/L (15-37) 11 U/L (15-37) (AST/SGOT) Albumin 3.3 GM/DL 3.3 GM/DL (3.4-5.0) (3.4-5.0) Magnesium Level 0.7 MG/DL (1.5-2.5) Alkaline Phosphatase 39 U/L (45-117) Imaging Last 72 hours Impressions Abdomen/Pelvis CT 10/17/16 1216 Signed Impressions: Service Date/Time: Wednesday, October 17, 2016 12:31 - CONCLUSION: 1. Diverticulosis and suspected hypertrophy of the sigmoid colon. Some degree of diverticulitis cannot be excluded although significant surrounding inflammatory change or an abscess is not seen. 2. Prominent prostate. 3. Minimal bladder wall thickening which may be secondary to lack of distention. Some degree of bowel obstruction also lead to some hypertrophy of the bladder. Alonzo Martinez MD Medications and IVs Current Medications Medications (Trade) Dose Ordered Sig/Quin Route Start Time Stop Time Status Last Admin Sodium Chloride 2 ml 2 ml UNSCH PRN IV FLUSH 10/17/16 12:30 10/17/16 16:21 (NS + KCl 20 Meq Inj) 1,000 ml @ 125 mls/hr Q8H IV 10/17/16 15:01 10/20/16 04:04 (Lactinex) 1 tab Q8H PO 10/17/16 16:00 10/20/16 07:13 (Zofran Inj) 4 mg Q6H PRN IV 10/17/16 15:15 10/18/16 23:02 (Lovenox Inj) 40 mg Q24H SQ 10/17/16 16:00 10/19/16 16:25 (Romazicon Inj) 0.2 mg Q1M PRN IV PUSH 10/17/16 16:00 (Ativan) 1 mg Q4H PRN PO 10/17/16 16:00 (Ativan Inj) 1 mg Q4H PRN IV PUSH 10/17/16 16:00 (Ativan) 2 mg Q2H PRN PO 10/17/16 16:00 (Ativan Inj) 2 mg Q2H PRN IV PUSH 10/17/16 16:00 (Ativan Inj) 2 mg Q1H PRN IV PUSH 10/17/16 16:00 (Ativan Inj) 2 mg Q15M PRN IV PUSH 10/17/16 16:00 (Vitamin B1) 100 mg DAILY PO 10/17/16 16:00 10/20/16 07:13 (Folate) 1 mg DAILY PO 10/17/16 16:00 10/20/16 07:12 (Tylenol) 650 mg Q4H PRN PO 10/17/16 16:00 (Colace) 100 mg BID PRN PO 10/17/16 16:00 (Milk Of Magnesia Liq) 30 ml DAILY PRN PO 10/17/16 16:00 (Tums Chew) 1,000 mg TID PRN CHEW 10/17/16 16:00 (Restoril) 15 mg HS PRN PO 10/17/16 16:00 10/19/16 20:46 (Narcan Inj) 0.4 mg UNSCH PRN IV 10/17/16 16:00 (Catapres) 0.1 mg Q6H PRN PO 10/19/16 08:00 10/20/16 01:08 (Norvasc) 5 mg DAILY PO 10/19/16 10:00 10/20/16 07:13 Lisinopril 20 mg 20 mg DAILY PO 10/20/16 09:00 10/20/16 07:13 (Zosyn 4.5 Gm Premix) 100 ml @ 200 mls/hr Q8H IV 10/19/16 12:00 10/20/16 03:59 (Ultram) 50 mg Q4H PRN PO 10/19/16 11:45 10/20/16 07:13 (Robitussin Dm 200-20 Mg/10 ml Liq) 10 ml Q6H PRN PO 10/19/16 16:00 10/20/16 07:14 A/P Assessment and Plan A: 1. Acute Diarrhea 2. Anemia P: 1. still awaiting stool culture results 2. Diarrhea doesn't seem to be improving, consider colonoscopy 3. continue IV fluids and antibiotics 4. monitor labs and Hgb/Hct; patient had only 1 BM today, feels much better, no diarrhea tolerating food, no C diff colonoscopy as outpatient in few wks FU as outpatient in 2-3 wks Nelli Stewart Oct 20, 2016 09:27 Harrison Corona MD Oct 20, 2016 18:08
--- NOTE | 2016-10-20 11:31 | HHI.PR ---
Subjective Remarks Patient states he had 8 episodes of diarrhea yesterday and 2 today However there is non-documented in our records. Denies abdominal pain, nausea or vomiting tolerated diet well Objective Vitals Vital Signs Date Time Temp Pulse Resp B/P Pulse Ox O2 Delivery O2 Flow Rate FiO2 10/20/16 08:37 96.7 75 18 140/93 100 10/20/16 00:00 96.8 73 18 161/100 96 10/19/16 20:00 97.3 80 18 157/94 100 10/19/16 17:08 97.4 70 19 140/91 100 10/19/16 12:10 97.3 77 19 124/84 100 I/O 10/19/16 10/19/16 10/19/16 10/20/16 10/20/16 10/20/16 07:00 15:00 23:00 07:00 15:00 23:00 Intake Total 980 ml 240 ml Output Total 300 ml Balance 680 ml 240 ml Intake Oral 980 ml 240 ml Output Urine Total 300 ml # Voids 4 4 3 # Bowel Movements 4 1 0 Result Diagram: 10/20/16 0750 10/20/16 0750 Imaging Last Impressions Abdomen/Pelvis CT 10/17/16 1216 Signed Impressions: Service Date/Time: Monday, October 17, 2016 12:31 - CONCLUSION: 1. Diverticulosis and suspected hypertrophy of the sigmoid colon. Some degree of diverticulitis cannot be excluded although significant surrounding inflammatory change or an abscess is not seen. 2. Prominent prostate. 3. Minimal bladder wall thickening which may be secondary to lack of distention. Some degree of bowel obstruction also lead to some hypertrophy of the bladder. Alonzo Martinez MD Objective Remarks GENERAL: Well-nourished, well-developed patient in moderate distress due to pain SKIN: Warm and dry. HEAD: Normocephalic. EYES: No scleral icterus. No injection or drainage. NECK: Supple, trachea midline. No JVD or lymphadenopathy. CARDIOVASCULAR: Regular rate and rhythm without murmurs, gallops, or rubs. RESPIRATORY: Breath sounds equal bilaterally. No accessory muscle use. GASTROINTESTINAL: Abdomen soft, non tender,non distended. There is voluntary guarding. MUSCULOSKELETAL: No cyanosis, or edema. BACK: Nontender without obvious deformity. No CVA tenderness. Procedures none Medications and IVs Current Medications Medications (Trade) Dose Ordered Sig/Quin Route Start Time Stop Time Status Last Admin (NS Flush) 2 ml UNSCH PRN IV FLUSH 10/17/16 12:30 10/17/16 16:21 (Lactinex) 1 tab Q8H PO 10/17/16 16:00 10/20/16 07:13 (Zofran Inj) 4 mg Q6H PRN IV 10/17/16 15:15 10/18/16 23:02 (Lovenox Inj) 40 mg Q24H SQ 10/17/16 16:00 10/19/16 16:25 (Romazicon Inj) 0.2 mg Q1M PRN IV PUSH 10/17/16 16:00 (Ativan) 1 mg Q4H PRN PO 10/17/16 16:00 (Ativan Inj) 1 mg Q4H PRN IV PUSH 10/17/16 16:00 (Ativan) 2 mg Q2H PRN PO 10/17/16 16:00 (Ativan Inj) 2 mg Q2H PRN IV PUSH 10/17/16 16:00 (Ativan Inj) 2 mg Q1H PRN IV PUSH 10/17/16 16:00 (Ativan Inj) 2 mg Q15M PRN IV PUSH 10/17/16 16:00 (Vitamin B1) 100 mg DAILY PO 10/17/16 16:00 10/20/16 07:13 (Folate) 1 mg DAILY PO 10/17/16 16:00 10/20/16 07:12 (Tylenol) 650 mg Q4H PRN PO 10/17/16 16:00 (Colace) 100 mg BID PRN PO 10/17/16 16:00 (Milk Of Magnesia Liq) 30 ml DAILY PRN PO 10/17/16 16:00 (Tums Chew) 1,000 mg TID PRN CHEW 10/17/16 16:00 (Restoril) 15 mg HS PRN PO 10/17/16 16:00 10/19/16 20:46 (Narcan Inj) 0.4 mg UNSCH PRN IV 10/17/16 16:00 (Catapres) 0.1 mg Q6H PRN PO 10/19/16 08:00 10/20/16 01:08 (Norvasc) 5 mg DAILY PO 10/19/16 10:00 10/20/16 07:13 Lisinopril 20 mg 20 mg DAILY PO 10/20/16 09:00 10/20/16 07:13 (Zosyn 4.5 Gm Premix) 100 ml @ 200 mls/hr Q8H IV 10/19/16 12:00 10/20/16 03:59 (Ultram) 50 mg Q4H PRN PO 10/19/16 11:45 10/20/16 07:13 (Robitussin Dm 200-20 Mg/10 ml Liq) 10 ml Q6H PRN PO 10/19/16 16:00 10/20/16 07:14 Urinary Catheter: No Vascular Central Line Catheter: No A/P Problem List: (1) Sepsis ICD Code: A41.9 Status: Acute Plan: Present on admission, patient with leukocytosis, tachycardia and diarrhea. CT abdomen and pelvis showed diverticulosis with some degree of diverticulitis which could not be excluded. Prominent prostate. Minimal bladder wall thickening which is reported to be possibly due to lack of distention. The patient was admitted to the medical floor and started on IV Flagyl Normal lactic acid Blood cultures negative 1, continue to monitor blood cultures. 10/19 stool studies do not show any WBCs, c diff negative, no enteric pathogens detected by PCR, negative rotavirus, cryptosporidia medium and Giardia antigen pending. Will Dc Oral vancomycin since C diff negative and place on IV Zosyn. Continue probiotics. (2) Leucocytosis ICD Code: D72.829 Status: Acute Plan: Due to sepsis secondary to diarrhea. 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 IV Flagyl was discontinued and patient started on oral Vancomycin. 10/18 Diarrhea improving. Antibiotics as above. 10/20 Diarrhea has improved. There is discrepancy the patient refers he had diarrhea, however nursing personnel did not record any. I discussed the case with RN and instructed to instruct the patient to let them know once he has a bowel movement. (4) Acute renal failure superimposed on stage 2 chronic kidney disease ICD Code: N17.9 Status: Acute Plan: Likely secondary to nausea, vomiting, diarrhea illness Creatinine trending down. 2.30 on admission, down to 1.50. Resolved after IV fluid administration Continue to monitor BUN/creatinine, strict and O's, avoid nephrotoxins (5) Alcohol abuse ICD Code: F10.10 Status: Acute Plan: We'll need to monitor patient for withdrawal symptoms closely No evidence of withdrawal symptoms Continue [facility] protocol. (6) Hypertension ICD Code: I10 Status: Chronic Plan: BP initially stable. Home antihypertensives held on admission including PHOEBE inhibitor due to acute kidney injury. BP stable for the first couple days. 10/19 BP elevated with sbp into the systolic 150's. Will resume amlodipine. Today 's creatinine still pending but if normal then will resume PHOEBE as well. 10/20 blood pressure still slightly elevated. I will increase amlodipine to 10 mg by mouth daily. (7) Hyperglycemia ICD Code: R73.9 Status: Acute Plan: No history of diabetes mellitus. Likely stress induced. I will check hemoglobin A1c. Hemoglobin A1c is 5.6. Diabetes ruled out. (8) Abdominal pain ICD Code: R10.9 Status: Acute Plan: Due to diarrhea with possible diverticulitis and rule out infectious diarrhea. Continue pain control with [place] and morphine sulfate. 10/19 Seems to be much improved. Continue IV antibiotics as above and continue pain control with oral and IV opiates. 10/20 Pain controlled on Tramadon. Morphine and [place] discontinued yesterday. (9) Acute diverticulitis ICD Code: K57.92 Status: Acute Plan: Treatment with antibiotics and pain control as above. Seen on CT scan described above. Assessment and Plan DVT prophylaxis: SCDs, Lovenox subcutaneous. Discharge Planning Possible discharge later today. Problem Qualifiers (1) Sepsis: Qualified Code: A41.9 - Sepsis, due to unspecified organism (2) Leucocytosis: Qualified Code: D72.829 - Leukocytosis, unspecified type (3) Acute renal failure superimposed on stage 2 chronic kidney disease: Qualified Code: N17.9 - Acute renal failure superimposed on stage 2 chronic kidney disease, unspecified acute renal failure type (4) Hypertension: Qualified Code: I10 - Essential hypertension (5) Abdominal pain: Qualified Code: R10.84 - Generalized abdominal pain Toyb Garcia MD Oct 20, 2016 11:31
[2016-10-20] MEDS: ONDANSETRON HCL 4 MG/2 ML VIAL IV PRN (11:56)
[2016-10-20] MEDS ORDERED: amLODIPine BESYLATE 5 MG TAB PO ONE (12:00)
[2016-10-20 12:18] VITALS: BP_SYST 121; BP_SYST 152; BP_DIAS 70; BP_DIAS 95; PULSE 86; RESP 19; TEMP 96.4; O2SAT 100
[2016-10-20] MEDS: ENOXAPARIN SODIUM 40 MG/0.4 ML SYRINGE SQ SCH (16:15)
[2016-10-20 16:26] VITALS: BP 126/92; PULSE 85; RESP 19; TEMP 96.1; O2SAT 100
[2016-10-20 20:00] VITALS: BP 146/95; PULSE 67; RESP 20; TEMP 96.2; O2SAT 100
[2016-10-20] MEDS: TEMAZEPAM 15 MG CAP PO PRN (23:26)
[2016-10-21] VITALS: BP 122/87; PULSE 76; RESP 20; TEMP 96.4; O2SAT 100
[2016-10-21] MEDS: PIPERACIL-TAZO 4.5 GM PREMIX 100 ML IV SCH ×2 (03:49→13:47)
[2016-10-21 08:00] VITALS: BP 120/89; PULSE 67; RESP 16; TEMP 96.3; O2SAT 100
[2016-10-21] MEDS ORDERED: amLODIPine BESYLATE 5 MG TAB PO SCH (09:00)
[2016-10-21] MEDS: FOLIC ACID 1 MG TAB PO SCH (09:58)
[2016-10-21] MEDS: LISINOPRIL 20 MG TAB PO SCH (09:58)
[2016-10-21] MEDS: LACTOBACILLUS ACIDOPHILUS TAB PO SCH ×2 (09:58→17:03)
[2016-10-21] MEDS: THIAMINE HCL 100 MG TAB PO SCH (09:58)
[2016-10-21 11:16] LABS: AUTOMATED NEUTROPHIL # 4.2 TH/MM3 (1.8-7.7); BASOPHIL % 0.7 % (0.0-2.0); EOSINOPHIL # 0.2 TH/MM3 (0-0.4); EOSINOPHIL % 3.7 % (0.0-4.0); HEMATOCRIT 32.4 % (39.0-51.0); HEMO FLAGS DIFF FINAL; LYMPH % 18.6 % (9.0-44.0); LYMPHOCYTE # 1.2 TH/MM3 (1.0-4.8); MEAN CELL VOLUME 91.1 FL (80.0-100.0); MEAN CORPUSCULAR HGB CONC 32.9 % (32.0-36.0); MONO % 11.8 % (0.0-8.0); NEUT % 65.2 % (16.0-70.0); PLATELET COUNT 252 TH/MM3 (150-450); RED BLOOD COUNT 3.56 MIL/MM3 (4.50-5.90); RED CELL DISTRIBUTION WIDTH 15.7 % (11.6-17.2); WHITE BLOOD COUNT 6.4 TH/MM3 (4.0-11.0)
[2016-10-21 11:40] LABS: ANION GAP 12 MEQ/L (5-15); BICARBONATE 20.2 MEQ/L (21.0-32.0); BLOOD UREA NITROGEN 11 MG/DL (7-18); CHLORIDE 107 MEQ/L (98-107); POTASSIUM 4.1 MEQ/L (3.5-5.1); SODIUM (NA) 139 MEQ/L (136-145)
[2016-10-21 11:48] LABS: ALKALINE PHOSPHATASE 40 U/L (45-117); ALT (GPT) 20 U/L (12-78); AST (GOT) 20 U/L (15-37); GLOMERULAR FILTRATION RATE 51 ML/MIN (>89); TOTAL BILIRUBIN ADULT 0.4 MG/DL (0.2-1.0)
[2016-10-21 12:00] VITALS: BP 141/88; PULSE 90; RESP 16; TEMP 97.4; O2SAT 100
[2016-10-21] MEDS ORDERED: AMLO5 PO (12:47)
[2016-10-21] MEDS ORDERED: LACT PO (12:47)
[2016-10-21] MEDS ORDERED: ULTR50TA5 PO (12:47)
[2016-10-21] MEDS ORDERED: GNP100TA3 PO (12:47)
--- NOTE | 2016-10-21 12:48 | HHI.DCPOC ---
Discharge Care Plan Diagnosis: (1) Acute diverticulitis (2) Abdominal pain (3) Hyperglycemia (4) Acute renal failure superimposed on stage 2 chronic kidney disease (5) Hypertension (6) Diarrhea (7) Alcohol abuse (8) Dehydration (9) Sepsis (10) Leucocytosis Goals to Promote Your Health * To prevent worsening of your condition and complications * To maintain your health at the optimal level Directions to Meet Your Goals Take your medications as prescribed Follow your dietary instruction Follow activity as directed Keep your appointments as scheduled Take your immunizations and boosters as scheduled If your symptoms worsen call your PCP, if no PCP go to Urgent Care Center or Emergency Room Smoking is Dangerous to Your Health. Avoid second hand smoke Call the 24-hour hour crisis hotline for domestic abuse at Toby Garcia MD Oct 21, 2016 12:48
--- NOTE | 2016-10-21 12:52 | HHI.PR ---
Subjective Remarks Diarrhea resolved denies abdominal pain or nausea feels very good Creatinine elevated Objective Vitals Vital Signs Date Time Temp Pulse Resp B/P Pulse Ox O2 Delivery O2 Flow Rate FiO2 10/21/16 12:00 97.4 90 16 141/88 100 10/21/16 08:00 96.3 67 16 120/89 100 10/21/16 00:00 96.4 76 20 122/87 100 10/20/16 20:00 96.2 67 20 146/95 100 10/20/16 16:26 96.1 85 19 126/92 100 I/O 10/20/16 10/20/16 10/20/16 10/21/16 10/21/16 10/21/16 07:00 15:00 23:00 07:00 15:00 23:00 Intake Total 240 ml 750 ml 480 ml 320 ml Balance 240 ml 750 ml 480 ml 320 ml Intake Oral 240 ml 750 ml 480 ml 320 ml # Voids 3 4 4 2 # Bowel Movements 0 1 1 Result Diagram: 10/21/16 1040 10/21/16 1040 Imaging Last Impressions Abdomen/Pelvis CT 10/17/16 1216 Signed Impressions: Service Date/Time: Monday, October 17, 2016 12:31 - CONCLUSION: 1. Diverticulosis and suspected hypertrophy of the sigmoid colon. Some degree of diverticulitis cannot be excluded although significant surrounding inflammatory change or an abscess is not seen. 2. Prominent prostate. 3. Minimal bladder wall thickening which may be secondary to lack of distention. Some degree of bowel obstruction also lead to some hypertrophy of the bladder. Alonzo Martinez MD Objective Remarks GENERAL: Well-nourished, well-developed patient in moderate distress due to pain SKIN: Warm and dry. HEAD: Normocephalic. EYES: No scleral icterus. No injection or drainage. NECK: Supple, trachea midline. No JVD or lymphadenopathy. CARDIOVASCULAR: Regular rate and rhythm without murmurs, gallops, or rubs. RESPIRATORY: Breath sounds equal bilaterally. No accessory muscle use. GASTROINTESTINAL: Abdomen soft, non tender,non distended. There is voluntary guarding. MUSCULOSKELETAL: No cyanosis, or edema. BACK: Nontender without obvious deformity. No CVA tenderness. Procedures none Medications and IVs Current Medications Medications (Trade) Dose Ordered Sig/Quin Route Start Time Stop Time Status Last Admin (NS Flush) 2 ml UNSCH PRN IV FLUSH 10/17/16 12:30 10/17/16 16:21 (Lactinex) 1 tab Q8H PO 10/17/16 16:00 10/21/16 09:58 (Zofran Inj) 4 mg Q6H PRN IV 10/17/16 15:15 10/20/16 11:56 (Lovenox Inj) 40 mg Q24H SQ 10/17/16 16:00 10/20/16 16:15 (Romazicon Inj) 0.2 mg Q1M PRN IV PUSH 10/17/16 16:00 (Ativan) 1 mg Q4H PRN PO 10/17/16 16:00 (Ativan Inj) 1 mg Q4H PRN IV PUSH 10/17/16 16:00 (Ativan) 2 mg Q2H PRN PO 10/17/16 16:00 (Ativan Inj) 2 mg Q2H PRN IV PUSH 10/17/16 16:00 (Ativan Inj) 2 mg Q1H PRN IV PUSH 10/17/16 16:00 (Ativan Inj) 2 mg Q15M PRN IV PUSH 10/17/16 16:00 (Vitamin B1) 100 mg DAILY PO 10/17/16 16:00 10/21/16 09:58 (Folate) 1 mg DAILY PO 10/17/16 16:00 10/21/16 09:58 (Tylenol) 650 mg Q4H PRN PO 10/17/16 16:00 (Colace) 100 mg BID PRN PO 10/17/16 16:00 (Milk Of Magnesia Liq) 30 ml DAILY PRN PO 10/17/16 16:00 (Tums Chew) 1,000 mg TID PRN CHEW 10/17/16 16:00 (Restoril) 15 mg HS PRN PO 10/17/16 16:00 10/20/16 23:26 (Narcan Inj) 0.4 mg UNSCH PRN IV 10/17/16 16:00 (Catapres) 0.1 mg Q6H PRN PO 10/19/16 08:00 10/20/16 01:08 Lisinopril 20 mg 20 mg DAILY PO 10/20/16 09:00 10/21/16 09:58 (Zosyn 4.5 Gm Premix) 100 ml @ 200 mls/hr Q8H IV 10/19/16 12:00 10/21/16 13:47 (Ultram) 50 mg Q4H PRN PO 10/19/16 11:45 10/20/16 23:26 (Robitussin Dm 200-20 Mg/10 ml Liq) 10 ml Q6H PRN PO 10/19/16 16:00 10/20/16 16:15 Amlodipine Besylate 10 mg 10 mg DAILY PO 10/21/16 09:00 10/21/16 09:59 (NS 1000 ml Inj) 1,000 ml @ 125 mls/hr Q8H IV 10/21/16 13:00 10/21/16 13:55 Urinary Catheter: No Vascular Central Line Catheter: No A/P Problem List: (1) Sepsis ICD Code: A41.9 Status: Acute Plan: Present on admission, patient with leukocytosis, tachycardia and diarrhea. CT abdomen and pelvis showed diverticulosis with some degree of diverticulitis which could not be excluded. Prominent prostate. Minimal bladder wall thickening which is reported to be possibly due to lack of distention. The patient was admitted to the medical floor and started on IV Flagyl Normal lactic acid Blood cultures negative 1, continue to monitor blood cultures. 10/19 stool studies do not show any WBCs, c diff negative, no enteric pathogens detected by PCR, negative rotavirus, cryptosporidia medium and Giardia antigen pending. Will Dc Oral vancomycin since C diff negative and place on IV Zosyn. Continue probiotics. 10/20 Will DC on Augmentin orally. (2) Leucocytosis ICD Code: D72.829 Status: Acute Plan: Due to sepsis secondary to diarrhea. 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 IV Flagyl was discontinued and patient started on oral Vancomycin. 10/18 Diarrhea improving. Antibiotics as above. 10/20 Diarrhea has improved. There is discrepancy the patient refers he had diarrhea, however nursing personnel did not record any. I discussed the case with RN and instructed to instruct the patient to let them know once he has a bowel movement. 10/21 diarrhea resolved. (4) Acute renal failure superimposed on stage 2 chronic kidney disease ICD Code: N17.9 Status: Acute Plan: Likely secondary to nausea, vomiting, diarrhea illness Creatinine trending down. 2.30 on admission, down to 1.50. Creatinine trended down to 1.1 which is the patient's baseline. 10/21 Creatinine back up to 1.4. Will start patient on normal saline. Instructed patient to drink fluids. Will repeat a BMP later today. If creatinine improving then will Dc home. Continue to monitor BUN/creatinine, strict I's and O's, avoid nephrotoxins. (5) Alcohol abuse ICD Code: F10.10 Status: Acute Plan: We'll need to monitor patient for withdrawal symptoms closely No evidence of withdrawal symptoms Continue [facility] protocol. (6) Hypertension ICD Code: I10 Status: Chronic Plan: BP initially stable. Home antihypertensives held on admission including PHOEBE inhibitor due to acute kidney injury. BP stable for the first couple days. 10/19 BP elevated with sbp into the systolic 150's. Will resume amlodipine. Today 's creatinine still pending but if normal then will resume PHOEBE as well. 10/20 blood pressure still slightly elevated. I will increase amlodipine to 10 mg by mouth daily. 10/21 BP controlled now. Continue PHOEBE inhibitor and amlodipine. (7) Hyperglycemia ICD Code: R73.9 Status: Acute Plan: No history of diabetes mellitus. Likely stress induced. I will check hemoglobin A1c. Hemoglobin A1c is 5.6. Diabetes ruled out. (8) Abdominal pain ICD Code: R10.9 Status: Acute Plan: Due to diarrhea with possible diverticulitis and rule out infectious diarrhea. Continue pain control with [place] and morphine sulfate. 10/19 Seems to be much improved. Continue IV antibiotics as above and continue pain control with oral and IV opiates. 10/20 Pain controlled on Tramadol. Morphine and [place] discontinued yesterday. (9) Acute diverticulitis ICD Code: K57.92 Status: Acute Plan: Treatment with antibiotics and pain control as above. Seen on CT scan described above. Assessment and Plan DVT prophylaxis: SCDs, Lovenox subcutaneous. Discharge Planning Possible discharge later today. Problem Qualifiers (1) Sepsis: Qualified Code: A41.9 - Sepsis, due to unspecified organism (2) Leucocytosis: Qualified Code: D72.829 - Leukocytosis, unspecified type (3) Acute renal failure superimposed on stage 2 chronic kidney disease: Qualified Code: N17.9 - Acute renal failure superimposed on stage 2 chronic kidney disease, unspecified acute renal failure type (4) Hypertension: Qualified Code: I10 - Essential hypertension (5) Abdominal pain: Qualified Code: R10.84 - Generalized abdominal pain Toby Garcia MD Oct 21, 2016 12:52
[2016-10-21] MEDS ORDERED: SODIUM CHLOR 0.9% 1000 ML INJ 1,000 ML IV SCH (13:00)
[2016-10-21] MEDS ORDERED: AUGM875T3 PO (15:32)
[2016-10-21 16:00] VITALS: BP 176/100; PULSE 98; RESP 16; TEMP 97.4; O2SAT 99
[2016-10-21] MEDS: guaiFENesin/DEXTROMETHORPHAN 200 MG/20 MG/10 ML CUP PO PRN (17:02)
[2016-10-21] MEDS: ENOXAPARIN SODIUM 40 MG/0.4 ML SYRINGE SQ SCH (17:03)
[2016-10-21 17:53] LABS: POTASSIUM 4.8 MEQ/L (3.5-5.1)
[2016-10-21 17:56] LABS: BICARBONATE 17.4 MEQ/L (21.0-32.0)
== END 2016-10-21 18:36 | disposition home or self-care (01) | DRG 872 ==
LOC: PHED 11:16 → PHEDA 14:19 → OBSVTOIN 15:04 → PH3A 16:42
PROVIDERS: ADMIT Hospitalist; ATTEND Hospitalist
DX: A41.9 Sepsis, unspecified organism (principal); N17.9 Acute kidney failure, unspecified; K56.60 Unspecified intestinal obstruction; E87.2 Acidosis; K57.92 Diverticulitis of intestine, part unspecified, without perforation or abscess without bleeding; E87.1 Hypo-osmolality and hyponatremia; I12.9 Hypertensive chronic kidney disease with stage 1 through stage 4 chronic kidney disease, or unspecified chronic kidney disease; R19.7 Diarrhea, unspecified; R11.2 Nausea with vomiting, unspecified; N18.2 Chronic kidney disease, stage 2 (mild); M19.90 Unspecified osteoarthritis, unspecified site; E86.0 Dehydration; K21.9 Gastro-esophageal reflux disease without esophagitis; F41.9 Anxiety disorder, unspecified; F12.90 Cannabis use, unspecified, uncomplicated; F10.10 Alcohol abuse, uncomplicated; N32.89 Other specified disorders of bladder; R73.9 Hyperglycemia, unspecified
CPT/HCPCS: 74177; 80048; 80053; 83036; 83605; 83690; 83735; 84100; 84443; 85025; 87040; 87205; 87328; 87329; 87425; 87493; 87506; J1650; J2270; J2405; J2543; J3480; J7030; Q9967

== ENCOUNTER 2016-11-04 14:07 | Inpatient (IN) | payer BC ==
[~2016-11-04] VITALS: Ht 175.3 cm; Wt 65.3 kg
[~2016-11-04 14:07] MED LIST changes: +AMLO5 PO; -AMLO5TAB2 PO; +AUGM875T3 PO; -CLON.1 PO; -OMEP20TA PO; +ULTR50TA5 PO; -VANC250C2 PO
[2016-11-04 14:18] VITALS: BP 100/74; PULSE 116; RESP 16; TEMP 97.9; O2SAT 100
[2016-11-04 16:01] VITALS: BP 108/95; PULSE 100; RESP 16; O2SAT 100
[2016-11-04] MEDS ORDERED: SODIUM CHLOR 0.9% 1000 ML INJ 1,000 ML IV ONE ×2 (16:30)
--- NOTE | 2016-11-04 16:30 | PD ---
HPI Chief Complaint: General Weakness Time Seen by Provider: 16:11 Travel History International Travel<30 days: No Contact w/Intl Traveler<30days: No Traveled to known affect area: No History of Present Illness HPI This 61-year-old male says been having diarrhea off and on for last couple of days. He is having bouts of diarrhea for a couple of years. He has been tested positive for C. difficile on several occasions and has been on vancomycin past. He had diarrhea just a month ago and tested negative at that time. He sees Dr. edmund Castañeda regular basis and has an appointment with him on Wednesday. He had one episode of vomiting He gets some crampy pain which is worse when he is having diarrhea. He says he drinks alcohol about 3 times a week and the last time was on the . 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 ) Asthma: No Autoimmune Disease: No Anxiety: No Depression: No Heart Rhythm Problems: No Cancer: No Cardiovascular Problems: Yes (HTN) High Cholesterol: No Chemotherapy: No Chest Pain: No Congestive Heart Failure: No COPD: No Cerebrovascular Accident: No Diabetes: No Diminished Hearing: No Diverticulitis: Yes Endocrine: No GERD: Yes Genitourinary: No Headaches: No Hiatal Hernia: No Heparin Induced Thrombocytopen: No Hypertension: Yes Immune Disorder: No Implanted Vascular Access Dvce: No Kidney Stones: No Musculoskeletal: No Neurologic: Yes Psychiatric: No Reproductive: No Respiratory: No Immunizations Current: Yes Migraines: No Pancreatitis: Yes Radiation Therapy: No Renal Failure: No Seizures: Yes (IN PAST R/T ALCOHOL WITHDRAWAL 2013) Sickle Cell Disease: No Sleep Apnea: No Thyroid Disease: No Ulcer: No Tetanus Vaccination: < 5 Years PNEUMOCCOCAL Vaccine (Year): 2 Past Surgical History Abdominal Surgery: No AICD: No Arteriovenous Shunt: No Body Medical Devices: DISSOLVABLE SCREW IN LEFT ANKLE - placed 2014 Cardiac Surgery: No Ear Surgery: No Endocrine Surgery: No Eye Surgery: No Genitourinary Surgery: No Gynecologic Surgery: No Hysterectomy: No Insulin Pump: No Joint Replacement: Yes (L FEMUR BONE 06/2015) Neurologic Surgery: No Oral Surgery: No Pacemaker: No Thoracic Surgery: No Other Surgery: Yes (2 BACK AND ONE NECK SURGERIES-microdiskectomy,left achilles tendon repair) Social History Alcohol Use: Yes (3 TOv4 times a week, states rum) Tobacco Use: No Substance Use: Yes (states smokes marijunana Q3DAYS) Allergies-Medications (Allergen,Severity, Reaction): Coded Allergies: Bactrim (Verified Allergy, Severe, Diarrhea, 11/04/16) Codeine (Verified Allergy, Severe, RASH, 11/04/16) Flagyl (Verified Allergy, Severe, 11/04/16) Levaquin (Verified Allergy, Severe, ACHILLES TENDON PROBLEM, 11/04/16) Reported Meds & Prescriptions Reported Meds & Active Scripts Active Norvasc (Amlodipine Besylate) 5 Mg Tab 10 Mg PO DAILY Famotidine 20 Mg Tab 10 Mg PO BID Reported Alprazolam 0.5 Mg Tab 0.5 Mg PO BID Lisinopril 20 Mg Tab 20 Mg PO DAILY Review of Systems General / Constitutional: No: Fever, Chills Eyes: No: Diploplia, Blurred Vision HENT: No: Headaches, Vertigo Cardiovascular: No: Chest Pain or Discomfort, Palpitations Respiratory: No: Cough, Shortness of Breath Gastrointestinal: Positive: Nausea, Vomiting, Diarrhea Genitourinary: No: Urgency, Frequency Musculoskeletal: No: Myalgias, Arthralgias Skin: No Rash, No Itching Neurologic: No: Weakness, Dizziness Psychiatric: No: Anxiety, Depression Hematologic/Lymphatic: No: Easy Bruising Physical Exam Narrative GENERAL: Well-developed male SKIN: Focused skin assessment warm/dry. HEAD: Atraumatic. Normocephalic. EYES: Pupils equal and round. No scleral icterus. No injection or drainage. ENT: No nasal bleeding or discharge. Mucous membranes pink and moist. NECK: Trachea midline. No JVD. CARDIOVASCULAR: Regular rate and rhythm. No murmur appreciated. RESPIRATORY: No accessory muscle use. Clear to auscultation. Breath sounds equal bilaterally. GASTROINTESTINAL: Abdomen soft, non-tender, nondistended. Hepatic and splenic margins not palpable. MUSCULOSKELETAL: No obvious deformities. No clubbing. No cyanosis. No edema. NEUROLOGICAL: Awake and alert. No obvious cranial nerve deficits. Motor grossly within normal limits. Normal speech. PSYCHIATRIC: Appropriate mood and affect; insight and judgment normal. Data Data Last Documented VS Vital Signs Date Time Temp Pulse Resp B/P Pulse Ox O2 Delivery O2 Flow Rate FiO2 11/04/16 16:01 100 16 108/95 100 Room Air 11/04/16 14:18 97.9 Orders Complete Blood Count With Diff (11/04/16 16:22) Comprehensive Metabolic Panel (11/04/16 16:22) Urinalysis - C+S If Indicated (11/04/16 16:22) Rotavirus Ag Detection (Stool) (11/04/16 16:22) Enteric Path (Stool) (11/04/16 16:22) C Diff Toxin Pcr (11/04/16 16:22) Sodium Chlor 0.9% 1000 Ml Inj (Ns 1000 M (11/04/16 16:30) Sodium Chlor 0.9% 1000 Ml Inj (Ns 1000 M (11/04/16 16:30) Labs Laboratory Tests Test 11/04/16 16:40 White Blood Count 17.1 TH/MM3 Red Blood Count 4.54 MIL/MM3 Hemoglobin 13.2 GM/DL Hematocrit 40.8 % Mean Corpuscular Volume 89.9 FL Mean Corpuscular Hemoglobin 29.2 PG Mean Corpuscular Hemoglobin 32.5 % Concent Red Cell Distribution Width 16.4 % Platelet Count 585 TH/MM3 Mean Platelet Volume 8.3 FL Neutrophils (%) (Auto) 77.3 % Lymphocytes (%) (Auto) 14.9 % Monocytes (%) (Auto) 6.6 % Eosinophils (%) (Auto) 0.7 % Basophils (%) (Auto) 0.5 % Neutrophils # (Auto) 13.2 TH/MM3 Lymphocytes # (Auto) 2.6 TH/MM3 Monocytes # (Auto) 1.1 TH/MM3 Eosinophils # (Auto) 0.1 TH/MM3 Basophils # (Auto) 0.1 TH/MM3 CBC Comment DIFF FINAL Differential Comment Urine Color YELLOW Urine Turbidity CLEAR Urine pH 5.5 Urine Specific [place] 1.015 Urine Protein NEG mg/dL Urine Glucose (UA) NEG mg/dL Urine Ketones NEG mg/dL Urine Occult Blood NEG Urine Nitrite NEG Urine Bilirubin NEG Urine Leukocyte Esterase NEG Urine RBC 0-3 /hpf Urine WBC 3-5 /hpf Urine Squamous Epithelial 0-5 /hpf Cells Urine Hyaline Casts 10-14 /lpf Urine Mucus FEW /lpf Microscopic Urinalysis Comment CULT NOT INDICATED Sodium Level 132 MEQ/L Potassium Level 5.7 MEQ/L Chloride Level 106 MEQ/L Carbon Dioxide Level 14.5 MEQ/L Anion Gap 12 MEQ/L Blood Urea Nitrogen 29 MG/DL Creatinine 3.10 MG/DL Estimat Glomerular Filtration 20 ML/MIN Rate Random Glucose 110 MG/DL Calcium Level 9.5 MG/DL Total Bilirubin 0.6 MG/DL Aspartate Amino Transf 32 U/L (AST/SGOT) Alanine Aminotransferase 19 U/L (ALT/SGPT) Alkaline Phosphatase 76 U/L Total Protein 9.0 GM/DL Albumin 4.2 GM/DL [facility] Medical Decision Making Medical Screen Exam Complete: Yes Emergency Medical Condition: Yes Medical Record Reviewed: Yes Differential Diagnosis Differential includes enteritis, C. difficile, dehydration Narrative Course Patient's lab work today shows a hemoglobin of 13 with a white count of 17,000. Sodium is 132 with potassium of 5.7. His chloride is 106 and his bicarbonate is only 14.5. His BUNs is 26 and his creatinine is 3. This level of creatinine is much higher than his usual value which is about 1. Diagnosis Primary Impression: Acute kidney injury Additional Impressions: Dehydration Colitis Sukh Muñoz MD Nov 04, 2016 16:30
[2016-11-04 16:49] LABS: AUTOMATED NEUTROPHIL # 13.2 TH/MM3 (1.8-7.7); BASOPHIL # 0.1 TH/MM3 (0-0.2); BASOPHIL % 0.5 % (0.0-2.0); EOSINOPHIL # 0.1 TH/MM3 (0-0.4); EOSINOPHIL % 0.7 % (0.0-4.0); HEMATOCRIT 40.8 % (39.0-51.0); LYMPH % 14.9 % (9.0-44.0); LYMPHOCYTE # 2.6 TH/MM3 (1.0-4.8); MEAN CELL VOLUME 89.9 FL (80.0-100.0); MEAN CORPUSCULAR HEMOGLOBIN 29.2 PG (27.0-34.0); MEAN CORPUSCULAR HGB CONC 32.5 % (32.0-36.0); MONO % 6.6 % (0.0-8.0); NEUT % 77.3 % (16.0-70.0); PLATELET COUNT 585 TH/MM3 (150-450); RED BLOOD COUNT 4.54 MIL/MM3 (4.50-5.90); RED CELL DISTRIBUTION WIDTH 16.4 % (11.6-17.2); WHITE BLOOD COUNT 17.1 TH/MM3 (4.0-11.0)
[2016-11-04 16:52] LABS: BLOOD, URINE NEG (NEG); GLUCOSE,URINE NEG (NEG); KETONE, URINE NEG (NEG); NITRITE,URINE NEG (NEG); PH, URINE 5.5 (5.0-8.5)
[2016-11-04 16:59] LABS: CHLORIDE 106 MEQ/L (98-107); POTASSIUM 5.7 MEQ/L (3.5-5.1); SODIUM (NA) 132 MEQ/L (136-145)
[2016-11-04 17:01] LABS: URINE COLOR YELLOW (YELLW/STRAW)
[2016-11-04 17:02] LABS: MUCUS URINE FEW /lpf (OCC)
[2016-11-04 17:03] LABS: ANION GAP 12 MEQ/L (5-15); BICARBONATE 14.5 MEQ/L (21.0-32.0); BLOOD UREA NITROGEN 29 MG/DL (7-18); COMMENT (UR) CULT NOT INDICATED; CULTURE IF INDICATED CULT NOT INDICATED; RBC, URINE 0-3 /hpf (0-3); SQUAMOUS EPITHELIAL CELL URINE 0-5 /hpf (0-5)
[2016-11-04 17:04] LABS: HEMO FLAGS DIFF FINAL
[2016-11-04 17:06] LABS: ALT (GPT) 19 U/L (12-78); AST (GOT) 32 U/L (15-37); GLOMERULAR FILTRATION RATE 20 ML/MIN (>89)
[2016-11-04 17:07] LABS: TOTAL BILIRUBIN ADULT 0.6 MG/DL (0.2-1.0)
[2016-11-04 17:09] LABS: ALKALINE PHOSPHATASE 76 U/L (45-117)
--- NOTE | 2016-11-04 17:52 | HHI.HP ---
[facility] Yamil Collado, DO Admission Diagnosis ACUTE KIDNEY INJURY, DEHYDRATION, ENTERITIS Diagnoses: Travel History International Travel<30 Days: No Contact w/Intl Traveler <30 Da: No Traveled to Known Affected Are: No History of Present Illness 61-year-old male with a medical history significant for hypertension, GERD, alcohol abuse, anxiety, recurrent C. difficile colitis presented to the hospital with complaint of diarrhea and abdominal pain. Patient reports that he had too much to drink a few days ago for his wedding anniversary, he also ate some seafood a few days ago. He states that he started to have nausea and vomiting couple of days ago and has been having intermittent diarrhea since. He felt dehydrated today which prompted the emergency room visit. Believe that he has had about 5 watery stool today. No blood, not dark. He reports intermittent abdominal cramps. Nausea currently resolved. No vomiting. Review of Systems Constitutional: DENIES: Fever, Chills Gastrointestinal: COMPLAINS OF: Abdominal pain, Diarrhea, Nausea, Vomiting Except as stated in HPI: all other systems reviewed are Neg Past Family Social History Past Medical History Diverticulosis Hypertension GERD Arthritis History of pancreatitis Recurrent clostridium difficile Alcohol abuse Past Surgical History Back and neck surgery Rectal surgery Left-sided chest tube Left Achilles tendon surgery Left hip hemiarthroplasty Reported Medications Reported Meds & Active Scripts Active Norvasc (Amlodipine Besylate) 5 Mg Tab 10 Mg PO DAILY Famotidine 20 Mg Tab 10 Mg PO BID Reported Alprazolam 0.5 Mg Tab 0.5 Mg PO BID Lisinopril 20 Mg Tab 20 Mg PO DAILY Allergies: Coded Allergies: Bactrim (Verified Allergy, Severe, Diarrhea, 11/04/16) Codeine (Verified Allergy, Severe, RASH, 11/04/16) Flagyl (Verified Allergy, Severe, 11/04/16) Levaquin (Verified Allergy, Severe, ACHILLES TENDON PROBLEM, 11/04/16) Family History Reviewed and noncontributory. Social History Patient admits to drinking alcohol 3-4 times a week. States he normally drinks 3-4 rum beverages. He denies tobacco but admits to smoking marijuana about 3 times a week. He denies any other illicit drug use. Physical Exam Vital Signs Vital Signs Date Time Temp Pulse Resp B/P Pulse Ox O2 Delivery O2 Flow Rate FiO2 11/04/16 16:01 100 16 108/95 100 Room Air 11/04/16 16:01 16 99 Room Air 11/04/16 14:18 97.9 116 16 100/74 100 Physical Exam GENERAL: This is a well-nourished, well-developed patient, in no apparent distress. SKIN: No rashes, ecchymoses or lesions. Cool and dry. HEAD: Atraumatic. Normocephalic. No temporal or scalp tenderness. EYES: Pupils equal round and reactive. Extraocular motions intact. No scleral icterus. No injection or drainage. ENT: Nose without bleeding, purulent drainage or septal hematoma. Mouth is dry. Throat without erythema, tonsillar hypertrophy or exudate. Uvula midline. Airway patent. NECK: Trachea midline. No JVD or lymphadenopathy. Supple, nontender, no meningeal signs. CARDIOVASCULAR: Regular rate and rhythm without murmurs, gallops, or rubs. RESPIRATORY: Clear to auscultation. Breath sounds equal bilaterally. No wheezes , rales, or rhonchi. GASTROINTESTINAL: Abdomen soft, nondistended, mild tenderness to palpation diffusely. No hepato-splenomegaly, or palpable masses. No guarding. MUSCULOSKELETAL: Extremities without clubbing, cyanosis, or edema. No joint tenderness, effusion, or edema noted. No calf tenderness. Negative Homans sign bilaterally. NEUROLOGICAL: Awake and alert. Cranial nerves II through XII intact. Motor and sensory grossly within normal limits. Five out of 5 muscle strength in all muscle groups. Normal speech. Laboratory Laboratory Tests Test 11/04/16 16:40 White Blood Count 17.1 Red Blood Count 4.54 Hemoglobin 13.2 Hematocrit 40.8 Mean Corpuscular Volume 89.9 Mean Corpuscular Hemoglobin 29.2 Mean Corpuscular Hemoglobin 32.5 Concent Red Cell Distribution Width 16.4 Platelet Count 585 Mean Platelet Volume 8.3 Neutrophils (%) (Auto) 77.3 Lymphocytes (%) (Auto) 14.9 Monocytes (%) (Auto) 6.6 Eosinophils (%) (Auto) 0.7 Basophils (%) (Auto) 0.5 Neutrophils # (Auto) 13.2 Lymphocytes # (Auto) 2.6 Monocytes # (Auto) 1.1 Eosinophils # (Auto) 0.1 Basophils # (Auto) 0.1 CBC Comment DIFF FINAL Differential Comment Urine Color YELLOW Urine Turbidity CLEAR Urine pH 5.5 Urine Specific [place] 1.015 Urine Protein NEG Urine Glucose (UA) NEG Urine Ketones NEG Urine Occult Blood NEG Urine Nitrite NEG Urine Bilirubin NEG Urine Leukocyte Esterase NEG Urine RBC 0-3 Urine WBC 3-5 Urine Squamous Epithelial 0-5 Cells Urine Hyaline Casts 10-14 Urine Mucus FEW Microscopic Urinalysis Comment CULT NOT INDICATED Sodium Level 132 Potassium Level 5.7 Chloride Level 106 Carbon Dioxide Level 14.5 Anion Gap 12 Blood Urea Nitrogen 29 Creatinine 3.10 Estimat Glomerular Filtration 20 Rate Random Glucose 110 Calcium Level 9.5 Total Bilirubin 0.6 Aspartate Amino Transf 32 (AST/SGOT) Alanine Aminotransferase 19 (ALT/SGPT) Alkaline Phosphatase 76 Total Protein 9.0 Albumin 4.2 Result Diagram: 11/04/16 1640 11/04/16 1640 Assessment and Plan Problem List: (1) Acute on chronic renal insufficiency ICD Code: N17.9 Status: Acute (2) Hyponatremia ICD Code: E87.1 Status: Acute (3) Diarrhea ICD Code: R19.7 Status: Acute (4) Abdominal pain ICD Code: R10.9 Status: Acute (5) Dehydration ICD Code: E86.0 Status: Acute Assessment and Plan 61-year-old male with: Acute on chronic kidney disease: Likely secondary to hypovolemia from dehydration. Patient has been having diarrhea for the past few days. Hydrate with IV fluid. Encourage oral hydration. Avoid nephrotoxins. Gastroenteritis/diarrhea: Could be viral. He does have a history of recurrent C. difficile colitis. Therefore needs to rule out. Obtain stool studies Supportive care with IV fluid. Diet as tolerated. Abdominal pain: Tramadol. Morphine IV as needed for breakthrough. Alcohol abuse: Patient counseled. He denies any history of withdrawals. Continue to monitor. Hypertension: Continue home dose of antihypertensives. GI prophylaxis: H2 maribel DVT PPx: SCDs Discussed Condition With Dr. Weiner Physician Certification 2 Midnight Certification Type: Admission for Inpatient Services Order for Inpatient Services The services are ordered in accordance with Medicare regulations or non- Medicare payer requirements, as applicable. In the case of services not specified as inpatient-only, they are appropriately provided as inpatient services in accordance with the 2-midnight benchmark. Estimated LOS (days): 3 days is the estimated time the patient will need to remain in the hospital, assuming treatment plan goals are met and no additional complications. Post-Hospital Plan: Home Arabella Peterson MD Nov 04, 2016 17:52
[2016-11-04] MEDS ORDERED: SODIUM CHLORIDE 0.9% FLUSH 10 ML FLUSH IV FLUSH PRN (18:00)
[2016-11-04] MEDS ORDERED: TEMAZEPAM 15 MG CAP PO PRN (18:00)
[2016-11-04] MEDS ORDERED: MORPHINE SULFATE 4 MG/ML INJ IV PUSH PRN (18:00)
[2016-11-04] MEDS ORDERED: ONDANSETRON HCL 4 MG/2 ML VIAL IVP PRN (18:00)
[2016-11-04] MEDS ORDERED: ACETAMINOPHEN 325 MG TAB PO PRN (18:00)
[2016-11-04] MEDS ORDERED: NALOXONE HCL 0.4 MG/ML AMP IV PRN (18:00)
[2016-11-04 18:05] VITALS: BP 111/80; PULSE 87; RESP 14; O2SAT 98
[2016-11-04] MEDS: SODIUM CHLORIDE 0.9% FLUSH 10 ML FLUSH IV FLUSH SCH (19:07)
[2016-11-04] MEDS: traMADol HCL 50 MG TAB PO PRN (19:51)
[2016-11-04] MEDS: FAMOTIDINE 20 MG TAB PO SCH (19:51)
[2016-11-04] MEDS: ALPRAZolam 0.5 MG TAB PO SCH (19:51)
[2016-11-04] MEDS: SODIUM CHLOR 0.9% 1000 ML INJ 1,000 ML IV SCH (19:51)
[2016-11-04 20:00] VITALS: BP 137/95; PULSE 86; RESP 18; TEMP 96.2; O2SAT 99
[2016-11-05] VITALS: BP 104/79; PULSE 85; RESP 20; TEMP 96.9; O2SAT 97
[2016-11-05 00:45] LABS: C. DIFF EPI 027 PRESUMPTIVE NEGATIVE (NEGATIVE); C. DIFF TOXIN PCR NEGATIVE (NEGATIVE)
[2016-11-05] MEDS: SODIUM CHLOR 0.9% 1000 ML INJ 1,000 ML IV SCH (03:58)
[2016-11-05 06:02] LABS: AUTOMATED NEUTROPHIL # 4.9 TH/MM3 (1.8-7.7); BASOPHIL # 0.1 TH/MM3 (0-0.2); BASOPHIL % 0.7 % (0.0-2.0); EOSINOPHIL # 0.2 TH/MM3 (0-0.4); EOSINOPHIL % 2.3 % (0.0-4.0); HEMATOCRIT 30.5 % (39.0-51.0); HEMO FLAGS DIFF FINAL; LYMPHOCYTE # 2.2 TH/MM3 (1.0-4.8); MEAN CELL VOLUME 89.3 FL (80.0-100.0); MEAN CORPUSCULAR HEMOGLOBIN 29.2 PG (27.0-34.0); MEAN CORPUSCULAR HGB CONC 32.8 % (32.0-36.0); MONO % 10.7 % (0.0-8.0); NEUT % 59.3 % (16.0-70.0); PLATELET COUNT 438 TH/MM3 (150-450); RED BLOOD COUNT 3.42 MIL/MM3 (4.50-5.90); RED CELL DISTRIBUTION WIDTH 15.7 % (11.6-17.2); WHITE BLOOD COUNT 8.3 TH/MM3 (4.0-11.0)
[2016-11-05 06:32] LABS: BICARBONATE 19.1 MEQ/L (21.0-32.0); POTASSIUM 4.7 MEQ/L (3.5-5.1)
[2016-11-05 08:00] VITALS: BP 142/94; PULSE 86; RESP 17; TEMP 97.8; O2SAT 100
[2016-11-05] MEDS: ALPRAZolam 0.5 MG TAB PO SCH (08:45)
[2016-11-05] MEDS: FAMOTIDINE 20 MG TAB PO SCH (08:46)
[2016-11-05] MEDS: SODIUM CHLORIDE 0.9% FLUSH 10 ML FLUSH IV FLUSH SCH (08:47)
[2016-11-05] MEDS: traMADol HCL 50 MG TAB PO PRN (08:49)
[2016-11-05] MEDS ORDERED: amLODIPine BESYLATE 5 MG TAB PO SCH (09:00)
[2016-11-05] MEDS ORDERED: LISINOPRIL 20 MG TAB PO SCH (10:00)
--- NOTE | 2016-11-05 11:10 | HHI.PR ---
Subjective Remarks Patient reports is feeling much better. No more diarrhea this morning. He is requesting to go home. Eating well. Objective Vitals Vital Signs Date Time Temp Pulse Resp B/P Pulse Ox O2 Delivery O2 Flow Rate FiO2 11/05/16 08:00 97.8 86 17 142/94 100 11/05/16 00:00 96.9 85 20 104/79 97 11/04/16 20:00 96.2 86 18 137/95 99 11/04/16 18:05 87 14 111/80 98 Room Air 11/04/16 16:01 100 16 108/95 100 Room Air 11/04/16 16:01 16 99 Room Air 11/04/16 14:18 97.9 116 16 100/74 100 I/O 11/04/16 11/04/16 11/04/16 11/05/16 11/05/16 11/05/16 07:00 15:00 23:00 07:00 15:00 23:00 Intake Total 1000 ml 1495 ml Balance 1000 ml 1495 ml Intake Oral 480 ml IV Total 1000 ml 1015 ml # Voids 2 # Bowel Movements 1 Result Diagram: 11/05/16 0543 11/05/16 0543 Objective Remarks GENERAL: This is a well-nourished, well-developed patient, in no apparent distress. CARDIOVASCULAR: Normal rate and regular rhythm without murmurs, gallops, or rubs. RESPIRATORY: Good respiratory efforts. Breath sounds equal and clear to auscultation bilaterally. GASTROINTESTINAL: Abdomen soft, non-tender, non-distended. Normal active bowel sounds MUSCULOSKELETAL: Extremities without cyanosis, or edema. NEURO: Alert & Oriented x4 to person, place, time, situation. Moves all ext x4 PSYCH: Appropriate mood and affect. A/P Problem List: (1) Acute on chronic renal insufficiency ICD Code: N17.9 Status: Acute (2) Hyponatremia ICD Code: E87.1 Status: Acute (3) Diarrhea ICD Code: R19.7 Status: Acute (4) Abdominal pain ICD Code: R10.9 Status: Acute (5) Dehydration ICD Code: E86.0 Status: Acute Assessment and Plan 61-year-old male with: Acute on chronic kidney disease: Likely secondary to hypovolemia from dehydration. Patient has been having diarrhea for the past few days. Likely a viral gastroenteritis. Symptoms resolved. Renal functions improved with IV fluid. Patient is advised to continue to drink plenty of fluid. Follow-up with PCP. Gastroenteritis/diarrhea: Likely viral. He does have a history of recurrent C. difficile colitis. Repeat C. difficile was negative. - Follow-up with GI as scheduled.. Alcohol abuse: Patient counseled. He denies any history of withdrawals. Hypertension: Continue home dose of antihypertensives. Discharge home in good condition Follow up with: PCP and GI Activity: Regular as tolerated Diet: Regular as tolerated. Meds: No new medications. Arabella Peterson MD Nov 05, 2016 11:09
--- NOTE | 2016-11-05 11:11 | HHI.DCPOC ---
Discharge Care Plan Diagnosis: (1) Acute on chronic renal insufficiency (2) Diarrhea (3) Abdominal pain (4) Dehydration (5) Gastroenteritis Goals to Promote Your Health * To prevent worsening of your condition and complications * To maintain your health at the optimal level Directions to Meet Your Goals Take your medications as prescribed Follow your dietary instruction Follow activity as directed Keep your appointments as scheduled Take your immunizations and boosters as scheduled If your symptoms worsen call your PCP, if no PCP go to Urgent Care Center or Emergency Room Smoking is Dangerous to Your Health. Avoid second hand smoke Call the 24-hour hour crisis hotline for domestic abuse at Arabella Peterson MD Nov 05, 2016 11:11
== END 2016-11-05 11:46 | disposition home or self-care (01) | DRG 683 ==
LOC: PHED 14:07 → PHEDA 17:26 → PH3B 18:11
PROVIDERS: ADMIT Family Medicine; ATTEND Family Medicine
DX: N17.9 Acute kidney failure, unspecified (principal); E87.1 Hypo-osmolality and hyponatremia; I12.9 Hypertensive chronic kidney disease with stage 1 through stage 4 chronic kidney disease, or unspecified chronic kidney disease; N18.9 Chronic kidney disease, unspecified; A08.4 Viral intestinal infection, unspecified; E86.0 Dehydration; K21.9 Gastro-esophageal reflux disease without esophagitis; F10.10 Alcohol abuse, uncomplicated; F41.9 Anxiety disorder, unspecified; M19.90 Unspecified osteoarthritis, unspecified site; F12.90 Cannabis use, unspecified, uncomplicated
CPT/HCPCS: 80048; 80053; 81001; 85025; 87425; 87493; 87506; 96360; J7030

== ENCOUNTER 2016-12-09 19:36 | Observation (INO) | payer BC ==
[~2016-12-09] VITALS: Ht 175.3 cm; Wt 64.4 kg
[~2016-12-09 19:36] MED LIST changes: -AUGM875T3 PO; -GNP100TA3 PO; -LACT PO; -ULTR50TA5 PO
[2016-12-09 19:45] VITALS: BP 153/95; PULSE 82; RESP 18; TEMP 97.6; O2SAT 99
[2016-12-09] MEDS ORDERED: PANT40TA3 PO (19:47)
--- NOTE | 2016-12-09 20:12 | PD ---
HPI Chief Complaint: Cardiac Complaint Time Seen by Provider: 20:05 Travel History International Travel<30 days: No Contact w/Intl Traveler<30days: No Traveled to known affect area: No History of Present Illness HPI 61-year-old male presents to the emergency department by EMS transport from home for evaluation of his heart rate. According to the patient he has not felt well for the past 2 weeks and has been hospitalized numerous times in the past several months for multiple complaints. Patient states yesterday reportedly at his primary care provider's office he was scheduled to have an outpatient stress test and echocardiogram. According to the patient yesterday his heart rate was 147 canceled the stress test but did perform the echocardiogram. Patient reports that they did not reportedly address his heart rate but told him that he could be discharged from the office to home and follow -up in the emergency department if needed. Patient states that yesterday while his heart rate was reportedly 140 he stayed home and did not come to the emergency room for evaluation however because of ongoing generalized weakness that she's experienced over the past 2 weeks he decided that perhaps she should have himself checked out today. Patient denies any new dizziness headache palpitations chest pain shortness of breath sweats referred neck or jaw or upper extremity or back or abdominal pain also denies any nausea or vomiting. Denies any change in mentation denies visual disturbance denies difficulty with speech or change in speech denies any upper or lower extremity numbness tingling or weakness. Patient states she's had no fever or chills. No nausea or vomiting. Patient has been evaluated for C. difficile and treated for C. difficile in the past but has had recent negative C. difficile test and has no diarrhea or abdominal pain or cramping. Patient's had no urinary symptoms and no flank pain. Patient denies any injury or fall. Patient admits to drinking alcohol today. Patient rates discomfort 0/10 in intensity. Patient reports having some kind of funny sensation over his left forehead but denies headache pain sudden onset worst ever discomfort or pain and denies any visual field loss vision blurred vision or change in vision. Patient's past history includes recurrent gastritis GERD anemia elevated lipase alcohol abuse alcohol withdrawal acute renal failure uncontrolled hypertension C. difficile colitis diverticulitis and anxiety. [facility] Past Medical History Narrative Medical recurrent gastritis GERD arthritis diminished hearing anemia elevated lipase alcohol abuse alcohol withdrawal acute renal failure uncontrolled hypertension C. difficile colitis diverticulitis anxiety; cervical spine microdiscectomy, left Achilles tendon repair; alcohol use marijuana use; nursing notes reviewed Hx Anticoagulant Therapy: No Arthritis: Yes (IN BILAT. SHOULDERS ) Asthma: No Autoimmune Disease: No Anxiety: Yes Depression: No Heart Rhythm Problems: No Cancer: No Cardiovascular Problems: Yes (HTN) High Cholesterol: No Chemotherapy: No Chest Pain: No Congestive Heart Failure: No COPD: No Cerebrovascular Accident: No Diabetes: No Diminished Hearing: Yes (L ear ) Diverticulitis: Yes Endocrine: No GERD: Yes Genitourinary: No Headaches: No Hiatal Hernia: No Heparin Induced Thrombocytopen: No Hypertension: Yes Immune Disorder: No Implanted Vascular Access Dvce: Yes Kidney Stones: No Musculoskeletal: Yes Neurologic: Yes Psychiatric: No Reproductive: No Respiratory: No Immunizations Current: Yes Migraines: No Pancreatitis: Yes Radiation Therapy: No Renal Failure: No Seizures: Yes (IN PAST R/T ALCOHOL WITHDRAWAL 2013) Sickle Cell Disease: No Sleep Apnea: No Thyroid Disease: No Ulcer: No Tetanus Vaccination: < 5 Years Influenza Vaccination: Yes PNEUMOCCOCAL Vaccine (Year): 2 Past Surgical History Abdominal Surgery: No AICD: No Arteriovenous Shunt: No Body Medical Devices: DISSOLVABLE SCREW IN LEFT ANKLE - placed 2014 Cardiac Surgery: No Ear Surgery: No Endocrine Surgery: No Eye Surgery: No Genitourinary Surgery: No Gynecologic Surgery: No Hysterectomy: No Insulin Pump: No Joint Replacement: Yes (L FEMUR BONE 06/2015) Neurologic Surgery: No Oral Surgery: No Pacemaker: No Thoracic Surgery: No Other Surgery: Yes (2 BACK AND ONE NECK SURGERIES-microdiskectomy,left achilles tendon repair) Social History Alcohol Use: Yes (3 TOv4 times a week, states rum) Tobacco Use: No Substance Use: Yes (states smokes marijunana Q3DAYS) Allergies-Medications (Allergen,Severity, Reaction): Coded Allergies: codeine (Unverified Allergy, Severe, RASH, 12/09/16) levofloxacin (Unverified Allergy, Severe, ACHILLES TENDON PROBLEM, 12/09/16 ) metronidazole (Unverified Allergy, Severe, 12/09/16) sulfamethoxazole (Unverified Allergy, Severe, Diarrhea, 12/09/16) trimethoprim (Unverified Allergy, Severe, Diarrhea, 12/09/16) Reported Meds & Prescriptions Reported Meds & Active Scripts Active Norvasc (Amlodipine Besylate) 5 Mg Tab 10 Mg PO DAILY Reported Pantoprazole (Pantoprazole Sodium) 40 Mg Tab 40 Mg PO DAILY Alprazolam 0.5 Mg Tab 0.5 Mg PO BID Lisinopril 20 Mg Tab 20 Mg PO DAILY Review of Systems Except as stated in HPI: all other systems reviewed are Neg General / Constitutional: Positive: Weight Loss (5#), No: Fever, Chills Eyes: No: Visual changes HENT: No: Headaches, Lightheadedness, Congestion, Neck Pain Cardiovascular: No: Chest Pain or Discomfort, Palpitations, Diaphoresis, Syncope, Edema, Claudication Respiratory: No: Shortness of Breath Gastrointestinal: No: Nausea, Vomiting, Diarrhea, Abdominal Pain, Loss of Appetite Genitourinary: No: Dysuria, Flank Pain Musculoskeletal: No: Myalgias, Arthralgias, Cramping, Edema, Pain Skin: No Rash Neurologic: Positive: Weakness (generalized x 2 weeks), No: Dizziness, Syncope , Focal Abnormalities, Coordination Problem, Ataxia, Headache, Change in Mentation, Slurred Speech, Paresthesia, Seizures, Sensory Disturbance Psychiatric: Positive: Anxiety Hematologic/Lymphatic: No: Lymph Node Enlargement Physical Exam Narrative GENERAL: Well-developed well-nourished male in no acute distress no respiratory distress SKIN: Warm and dry. HEAD: Atraumatic. Normocephalic. EYES: Pupils equal and round. No scleral icterus. No injection or drainage. ENT: No nasal bleeding or discharge. Mucous membranes pink and moist. NECK: Trachea midline. No JVD. CARDIOVASCULAR: Regular rate and rhythm. RESPIRATORY: No accessory muscle use. Clear to auscultation. Breath sounds equal bilaterally. GASTROINTESTINAL: Abdomen soft, non-tender, nondistended. Hepatic and splenic margins not palpable. MUSCULOSKELETAL: Extremities without clubbing, cyanosis, or edema. No obvious deformities. NEUROLOGICAL: Awake and alert. No obvious cranial nerve deficits. Motor grossly within normal limits. Five out of 5 muscle strength in the arms and legs. No limb ataxia. No pronator drift. No sensory deficit. Speech is noted however this is denied by the patient and states this is his normal speech speech. PSYCHIATRIC: Appropriate mood and affect; insight and judgment normal. Data Data Last Documented VS Vital Signs Date Time Temp Pulse Resp B/P Pulse Ox O2 Delivery O2 Flow Rate FiO2 12/09/16 21:03 78 16 132/87 99 Room Air 12/09/16 19:45 97.6 Orders Electrocardiogram (12/09/16 20:03) Basic Metabolic Panel (Bmp) (12/09/16 20:03) Complete Blood Count With Diff (12/09/16 20:03) Magnesium (Mg) (12/09/16 20:03) Troponin I (12/09/16 20:03) Ua Includes Microscopic (12/09/16 20:03) Chest, Single Ap (12/09/16 20:03) Ct Brain W/O Iv Contrast(Rout) (12/09/16 20:03) Ecg Monitoring (12/09/16 20:03) Iv Access Insert/Monitor (12/09/16 20:03) Oximetry (12/09/16 20:03) Sodium Chloride 0.9% Flush (Ns Flush) (12/09/16 20:15) Alcohol (Ethanol) (12/09/16 20:03) Magnesium Sulfate 1 Gm Premix (Magnesium (12/09/16 21:15) Sodium Chlor 0.9% 1000 Ml Inj (Ns 1000 M (12/09/16 21:15) Thiamine Inj (Thiamine Inj) (12/09/16 21:15) Labs Laboratory Tests Test 12/09/16 20:35 White Blood Count 9.3 TH/MM3 Red Blood Count 3.90 MIL/MM3 Hemoglobin 11.4 GM/DL Hematocrit 33.8 % Mean Corpuscular Volume 86.7 FL Mean Corpuscular Hemoglobin 29.3 PG Mean Corpuscular Hemoglobin 33.8 % Concent Red Cell Distribution Width 17.4 % Platelet Count 255 TH/MM3 Mean Platelet Volume 8.1 FL Neutrophils (%) (Auto) 58.8 % Lymphocytes (%) (Auto) 30.4 % Monocytes (%) (Auto) 8.9 % Eosinophils (%) (Auto) 1.0 % Basophils (%) (Auto) 0.9 % Neutrophils # (Auto) 5.5 TH/MM3 Lymphocytes # (Auto) 2.8 TH/MM3 Monocytes # (Auto) 0.8 TH/MM3 Eosinophils # (Auto) 0.1 TH/MM3 Basophils # (Auto) 0.1 TH/MM3 CBC Comment DIFF FINAL Differential Comment Urine Color YELLOW Urine Turbidity CLEAR Urine pH 5.5 Urine Specific [place] 1.015 Urine Protein NEG mg/dL Urine Glucose (UA) NEG mg/dL Urine Ketones NEG mg/dL Urine Occult Blood NEG Urine Nitrite NEG Urine Bilirubin NEG Urine Leukocyte Esterase TRACE Urine RBC 0-2 /hpf Urine WBC 0-2 /hpf Urine Squamous Epithelial 0-5 /hpf Cells Urine Bacteria NONE /hpf Microscopic Urinalysis Comment Sodium Level 128 MEQ/L Potassium Level 4.1 MEQ/L Chloride Level 96 MEQ/L Carbon Dioxide Level 19.3 MEQ/L Anion Gap 13 MEQ/L Blood Urea Nitrogen 38 MG/DL Creatinine 2.50 MG/DL Estimat Glomerular Filtration 26 ML/MIN Rate Random Glucose 88 MG/DL Calcium Level 9.1 MG/DL Magnesium Level 0.8 MG/DL Troponin I LESS THAN 0.02 NG/ML Ethyl Alcohol Level 271 MG/DL [facility] Medical Decision Making Medical Screen Exam Complete: Yes Emergency Medical Condition: Yes Medical Record Reviewed: Yes Interpretation(s) EKG: Normal sinus rhythm rate [address] elevation or injury pattern or ectopy noted artifact is present Differential Diagnosis Generalized weakness, arrhythmia, electrolyte disturbance, anxiety, alcohol intoxication metabolic disturbance, Narrative Course Patient placed on satellite project site monitor IV access obtained specimens collected and sent for resulting EKG sinus rhythm no acute injury pattern and no ectopy noted Patient resting comfortably voicing no concerns CBC is automated differential values grossly within normal limits Metabolic panel remarkable for hyponatremia hypomagnesemia and acute on chronic renal insufficiency with mild non-anion gap metabolic acidosis. Serum alcohol is elevated 271 consistent with alcohol and intoxication CT brain noncontrast resulted and identified to have no acute abnormality but ischemic white matter changes are noted this is a new finding since comparison CT brain noncontrast some 2014 age-indeterminate Patient will be given normal saline replacement as well as IV magnesium replacement; in view of acute on chronic renal insufficiency plan will be to admit patient for observation with correction IV I disturbance metabolic disturbance and at this time troponin I is less than 0.02 EKG reveals no acute injury pattern change and patient is not tachycardic. Patient will require monitoring for alcohol withdrawal. Patient reports that he only drinks 2-3 times per week but concern is that he drinks more frequently than stated. Physician Communication Physician Communication call placed to [facility] service Diagnosis Primary Impression: Generalized weakness Additional Impressions: Electrolyte disturbance Acute on chronic renal insufficiency Alcohol intoxication Qualified Code: F10.920 - Alcoholic intoxication without complication Admitting Information Admitting Physician Requests: Observation Salter,Ejn H. MD Dec 09, 2016 20:12
[2016-12-09] MEDS ORDERED: SODIUM CHLORIDE 0.9% FLUSH 10 ML FLUSH IVF PRN ×2 (20:15→21:45)
--- NOTE | 2016-12-09 20:24 | RADRPT ---
EXAM DATE/TIME: 12/09/2016 20:08 [facility] COMPARISON: CHEST SINGLE AP, October 10, 2014, 5:36. INDICATIONS : Chest pain. MEDICAL HISTORY : Hypertension. Gastroesophageal reflux disease. SURGICAL HISTORY : Hip replacement, and 2 back and neck surgeries. ENCOUNTER: Initial ACUITY: 1 day PAIN SCORE: 5/10 LOCATION: Bilateral chest FINDINGS: A single view of the chest demonstrates the lungs to be symmetrically aerated without evidence of mas s, infiltrate or effusion. The cardiomediastinal contours are unremarkable. Old left rib fractures a re seen. There is chronic change of the distal right clavicle. CONCLUSION: No acute disease. Alonzo Martinez MD on December 09, 2016 at 20:22 Board Certified Radiologist. This report was verified electronically.
[2016-12-09 20:42] LABS: BLOOD, URINE NEG (NEG); GLUCOSE,URINE NEG (NEG); KETONE, URINE NEG (NEG); NITRITE,URINE NEG (NEG); PH, URINE 5.5 (5.0-8.5)
[2016-12-09 20:43] LABS: AUTOMATED NEUTROPHIL # 5.5 TH/MM3 (1.8-7.7); BASOPHIL # 0.1 TH/MM3 (0-0.2); BASOPHIL % 0.9 % (0.0-2.0); EOSINOPHIL # 0.1 TH/MM3 (0-0.4); HEMATOCRIT 33.8 % (39.0-51.0); HEMO FLAGS DIFF FINAL; LYMPH % 30.4 % (9.0-44.0); LYMPHOCYTE # 2.8 TH/MM3 (1.0-4.8); MEAN CELL VOLUME 86.7 FL (80.0-100.0); MEAN CORPUSCULAR HEMOGLOBIN 29.3 PG (27.0-34.0); MEAN CORPUSCULAR HGB CONC 33.8 % (32.0-36.0); MONO % 8.9 % (0.0-8.0); NEUT % 58.8 % (16.0-70.0); PLATELET COUNT 255 TH/MM3 (150-450); RED CELL DISTRIBUTION WIDTH 17.4 % (11.6-17.2); WHITE BLOOD COUNT 9.3 TH/MM3 (4.0-11.0)
[2016-12-09 20:47] LABS: RBC, URINE 0-2 /hpf (0-3); SQUAMOUS EPITHELIAL CELL URINE 0-5 /hpf (0-5); URINE COLOR YELLOW (YELLW/STRAW); WBC, URINE 0-2 /hpf (0-5)
[2016-12-09 20:50] LABS: CHLORIDE 96 MEQ/L (98-107); POTASSIUM 4.1 MEQ/L (3.5-5.1); SODIUM (NA) 128 MEQ/L (136-145)
[2016-12-09 20:53] LABS: ANION GAP 13 MEQ/L (5-15); BICARBONATE 19.3 MEQ/L (21.0-32.0); BLOOD UREA NITROGEN 38 MG/DL (7-18); MAGNESIUM 0.8 MG/DL (1.5-2.5)
[2016-12-09 20:56] LABS: GLOMERULAR FILTRATION RATE 26 ML/MIN (>89)
[2016-12-09 20:57] VITALS: O2SAT 98
[2016-12-09 20:57] LABS: ALCOHOL 271 MG/DL (0-5)
[2016-12-09 21:03] VITALS: BP 132/87; PULSE 78; RESP 16; O2SAT 99
[2016-12-09] MEDS ORDERED: MAGNESIUM SULFATE 1 GM PREMIX 100 ML IV ONE (21:15)
[2016-12-09] MEDS ORDERED: THIAMINE INJ 100 MG in SODIUM CHLORIDE 0.9% INJ 100 ML IV ONE (21:15)
[2016-12-09] MEDS ORDERED: SODIUM CHLOR 0.9% 1000 ML INJ 1,000 ML IV ONE (21:15)
--- NOTE | 2016-12-09 21:24 | RADRPT ---
EXAM DATE/TIME: 12/09/2016 20:34 [facility] COMPARISON: CT BRAIN W/O CONTRAST, May 16, 2014, 5:30. INDICATIONS : Altered mental status. Dizziness. RADIATION DOSE: 62.63 CTDIvol (mGy) MEDICAL HISTORY : Hypertension. SURGICAL HISTORY : None. ENCOUNTER: Initial ACUITY: 1 day PAIN SCALE: 0/10 LOCATION: cranial TECHNIQUE: Multiple contiguous axial images were obtained of the head. Using automated exposure control and adj ustment of the mA and/or kV according to patient size, radiation dose was kept as low as reasonably a chievable to obtain optimal diagnostic quality images. DICOM format image data is available electro nically for review and comparison. FINDINGS: CEREBRUM: The ventricles are normal for age. There is mild decreased density in the cerebral white matter. No evidence of midline shift, mass lesion, hemorrhage or acute infarction. No extra-axial fluid collect ions are seen. POSTERIOR FOSSA: The cerebellum and brainstem are intact. The 4th ventricle is midline. The cerebellopontine angle i s unremarkable. EXTRACRANIAL: The visualized portion of the orbits is intact. SKULL: The calvaria is intact. No evidence of skull fracture. CONCLUSION: No acute abnormality seen. There does appear to be small vessel ischemic change in the white matter. Alonzo Martinez MD on December 09, 2016 at 21:21 Board Certified Radiologist. This report was verified electronically.
[2016-12-09] MEDS ORDERED: SODIUM CHLORIDE 0.9% FLUSH 10 ML FLUSH IV FLUSH PRN (21:45)
[2016-12-09] MEDS ORDERED: NALOXONE HCL 0.4 MG/ML AMP IV PRN (21:45)
[2016-12-09 22:55] VITALS: BP 140/90; PULSE 80; RESP 16; O2SAT 99
[2016-12-09 23:34] VITALS: BP 148/95; PULSE 80; RESP 18; TEMP 95.2; O2SAT 100
[2016-12-10 00:10] VITALS: O2SAT 100
[2016-12-10 04:00] VITALS: BP 120/77; PULSE 81; RESP 18; TEMP 96.2; O2SAT 98
[2016-12-10 05:41] LABS: BASOPHIL # 0.1 TH/MM3 (0-0.2); BASOPHIL % 0.8 % (0.0-2.0); EOSINOPHIL # 0.2 TH/MM3 (0-0.4); EOSINOPHIL % 2.6 % (0.0-4.0); HEMATOCRIT 31.5 % (39.0-51.0); HEMO FLAGS DIFF FINAL; LYMPH % 35.2 % (9.0-44.0); LYMPHOCYTE # 2.2 TH/MM3 (1.0-4.8); MEAN CELL VOLUME 86.3 FL (80.0-100.0); MEAN CORPUSCULAR HEMOGLOBIN 27.7 PG (27.0-34.0); MEAN CORPUSCULAR HGB CONC 32.1 % (32.0-36.0); MONO % 11.7 % (0.0-8.0); NEUT % 49.7 % (16.0-70.0); PLATELET COUNT 276 TH/MM3 (150-450); RED BLOOD COUNT 3.65 MIL/MM3 (4.50-5.90); RED CELL DISTRIBUTION WIDTH 17.2 % (11.6-17.2); WHITE BLOOD COUNT 6.3 TH/MM3 (4.0-11.0)
[2016-12-10 05:48] LABS: POTASSIUM 3.9 MEQ/L (3.5-5.1)
[2016-12-10 05:58] LABS: BICARBONATE 18.8 MEQ/L (21.0-32.0); MAGNESIUM 1.1 MG/DL (1.5-2.5)
[2016-12-10 08:00] VITALS: BP 126/87; PULSE 98; RESP 20; TEMP 98.3; O2SAT 99
[2016-12-10 08:53] VITALS: O2SAT 93
[2016-12-10] MEDS ORDERED: SODIUM CHLORIDE 0.9% FLUSH 10 ML FLUSH IV FLUSH SCH ×2 (09:00)
--- NOTE | 2016-12-10 09:08 | EKG ---
Date Performed: 12/09/2016 Time Performed: 20:45:42 PTAGE: 61 years EKG: Sinus rhythm ABNORMAL RHYTHM ECG PREVIOUS TRACING : 09/27/2016 17.33 Compared to prior tracing no significant change DOCTOR: Alex Hernandez Interpretating Date/Time 12/10/2016 09:00:54
--- NOTE | 2016-12-10 10:10 | HHI.HP ---
HPI Service [facility] Primary Care Physician Yamil Collado, DO Admission Diagnosis Generalized weakness;electrolyte d/o;SHAVONNE; alc intox Diagnoses: Chief Complaint: Generalized weakness, anxiety Travel History International Travel<30 Days: No Contact w/Intl Traveler <30 Da: No Traveled to Known Affected Are: No History of Present Illness 61-year-old male with a medical history significant for alcohol abuse, hypertension, GERD, anxiety. Patient presented to the hospital because of a high heart rate that he noted at the PCPs office. He states he had a normal endoscopy about a week ago. He continues to drink alcohol but he would not quantify how much he drank. It is worth noted on previous admission he would also admitted that he had too much to drink. He denies any chest pain, shortness of breath, nausea or vomiting. This morning he reports he is feeling better. Initial workup in the emergency room revealed acute renal failure. Review of Systems Constitutional: DENIES: Fever, Chills Cardiovascular: COMPLAINS OF: Palpitations, DENIES: Chest pain Gastrointestinal: DENIES: Nausea, Vomiting Psychiatric: COMPLAINS OF: Anxiety Except as stated in HPI: all other systems reviewed are Neg Past Family Social History Past Medical History Diverticulosis Hypertension GERD Arthritis History of pancreatitis History of clostridium difficile colitis Alcohol abuse Past Surgical History Back and neck surgery Rectal surgery Left-sided chest tube Left Achilles tendon surgery Left hip hemiarthroplasty Reported Medications Reported Meds & Active Scripts Active Norvasc (Amlodipine Besylate) 5 Mg Tab 10 Mg PO DAILY Reported Pantoprazole (Pantoprazole Sodium) 40 Mg Tab 40 Mg PO DAILY Alprazolam 0.5 Mg Tab 0.5 Mg PO BID Lisinopril 20 Mg Tab 20 Mg PO DAILY Allergies: Coded Allergies: codeine (Unverified Allergy, Severe, RASH, 12/09/16) levofloxacin (Unverified Allergy, Severe, ACHILLES TENDON PROBLEM, 12/09/16 ) metronidazole (Unverified Allergy, Severe, 12/09/16) sulfamethoxazole (Unverified Allergy, Severe, Diarrhea, 12/09/16) trimethoprim (Unverified Allergy, Severe, Diarrhea, 12/09/16) Family History Reviewed and noncontributory. Social History Patient admits to drinking alcohol 3-4 times a week. States he normally drinks 3-4 rhum beverages. I believe he is minimizing the amount of alcohol he drinks. He denies tobacco but admits to smoking marijuana about 3 times a week. He denies any other illicit drug use. Physical Exam Vital Signs Vital Signs Date Time Temp Pulse Resp B/P Pulse Ox O2 Delivery O2 Flow Rate FiO2 12/10/16 08:53 93 12/10/16 08:00 98.3 98 20 126/87 99 12/10/16 04:00 96.2 81 18 120/77 98 12/10/16 00:10 100 21 12/09/16 23:34 95.2 80 18 148/95 100 12/09/16 22:55 80 16 140/90 99 Room Air 12/09/16 21:03 78 16 132/87 99 Room Air 12/09/16 20:57 98 Room Air 12/09/16 19:51 Room Air 12/09/16 19:45 97.6 82 18 153/95 99 Physical Exam GENERAL: This is a well-nourished, well-developed patient, in no apparent distress. SKIN: No rashes, ecchymoses or lesions. Cool and dry. HEAD: Atraumatic. Normocephalic. No temporal or scalp tenderness. EYES: Pupils equal round and reactive. Extraocular motions intact. No scleral icterus. No injection or drainage. ENT: Nose without bleeding, purulent drainage or septal hematoma. Throat without erythema, tonsillar hypertrophy or exudate. Uvula midline. Airway patent. NECK: Trachea midline. No JVD or lymphadenopathy. Supple, nontender, no meningeal signs. CARDIOVASCULAR: Regular rate and rhythm without murmurs, gallops, or rubs. RESPIRATORY: Clear to auscultation. Breath sounds equal bilaterally. No wheezes , rales, or rhonchi. GASTROINTESTINAL: Abdomen soft, non-tender, nondistended. No hepato-splenomegaly , or palpable masses. No guarding. MUSCULOSKELETAL: Extremities without clubbing, cyanosis, or edema. No joint tenderness, effusion, or edema noted. No calf tenderness. Negative Homans sign bilaterally. NEUROLOGICAL: Awake and alert. Cranial nerves II through XII intact. Motor and sensory grossly within normal limits. Five out of 5 muscle strength in all muscle groups. Normal speech. Laboratory Laboratory Tests Test 12/09/16 12/10/16 20:35 04:25 White Blood Count 9.3 6.3 Red Blood Count 3.90 3.65 Hemoglobin 11.4 10.1 Hematocrit 33.8 31.5 Mean Corpuscular Volume 86.7 86.3 Mean Corpuscular Hemoglobin 29.3 27.7 Mean Corpuscular Hemoglobin 33.8 32.1 Concent Red Cell Distribution Width 17.4 17.2 Platelet Count 255 276 Mean Platelet Volume 8.1 8.7 Neutrophils (%) (Auto) 58.8 49.7 Lymphocytes (%) (Auto) 30.4 35.2 Monocytes (%) (Auto) 8.9 11.7 Eosinophils (%) (Auto) 1.0 2.6 Basophils (%) (Auto) 0.9 0.8 Neutrophils # (Auto) 5.5 3.0 Lymphocytes # (Auto) 2.8 2.2 Monocytes # (Auto) 0.8 0.7 Eosinophils # (Auto) 0.1 0.2 Basophils # (Auto) 0.1 0.1 CBC Comment DIFF FINAL DIFF FINAL Differential Comment Urine Color YELLOW Urine Turbidity CLEAR Urine pH 5.5 Urine Specific [place] 1.015 Urine Protein NEG Urine Glucose (UA) NEG Urine Ketones NEG Urine Occult Blood NEG Urine Nitrite NEG Urine Bilirubin NEG Urine Leukocyte Esterase TRACE Urine RBC 0-2 Urine WBC 0-2 Urine Squamous Epithelial 0-5 Cells Urine Bacteria NONE Microscopic Urinalysis Comment Sodium Level 128 134 Potassium Level 4.1 3.9 Chloride Level 96 103 Carbon Dioxide Level 19.3 18.8 Anion Gap 13 12 Blood Urea Nitrogen 38 33 Creatinine 2.50 1.80 Estimat Glomerular Filtration 26 38 Rate Random Glucose 88 69 Calcium Level 9.1 8.1 Magnesium Level 0.8 1.1 Troponin I LESS THAN 0.02 Ethyl Alcohol Level 271 Result Diagram: 12/10/165 12/10/16424 Imaging Last Impressions Head CT 12/09/162002 Signed Impressions: Service Date/Time: Friday, December 09, 2016 20:34 - CONCLUSION: No acute abnormality seen. There does appear to be small vessel ischemic change in the white matter. Alonzo Martinez MD Chest X-Ray 12/09/162002 Signed Impressions: Service Date/Time: Friday, December 09, 2016 20:08 - CONCLUSION: No acute disease. Alonzo Martinez MD Assessment and Plan Problem List: (1) Acute on chronic renal insufficiency ICD Code: N17.9 Status: Acute (2) Electrolyte disturbance ICD Code: E87.8 Status: Acute (3) Alcohol intoxication ICD Code: F10.929 Status: Acute Assessment and Plan Acute on chronic kidney disease: Likely secondary to dehydration. The patient has been drinking alcohol. He has a history of the same. Renal functions improving with IV fluid. We'll continue IV fluid and repeat BMP later today. If renal functions continued to improve, he can be discharged home. Alcohol abuse: Patient counseled. He denies any history of withdrawals. Hypertension: Continue home dose of antihypertensives. Problem Qualifiers (1) Alcohol intoxication: Qualified Code: F10.920 - Alcoholic intoxication without complication Arabella Peterson MD Dec 10, 2016 10:10
[2016-12-10] MEDS ORDERED: SODIUM CHLORID 0.9% 500 ML INJ 500 ML IV ONE (10:15)
[2016-12-10] MEDS ORDERED: SODIUM CHLOR 0.9% 1000 ML INJ 1,000 ML IV SCH (10:15)
[2016-12-10] MEDS ORDERED: PANTOPRAZOLE SOD 40 MG DELAYED RELEASE TAB PO SCH (11:30)
[2016-12-10 12:00] VITALS: BP 141/98; PULSE 109; RESP 20; TEMP 97.7; O2SAT 98
[2016-12-10] MEDS: MAGNESIUM SULFATE 1 GM PREMIX 100 ML IV SCH ×2 (14:11→15:20)
[2016-12-10 15:51] VITALS: BP 127/83; PULSE 103; RESP 20; TEMP 97.8; O2SAT 99
[2016-12-10 16:56] LABS: POTASSIUM 4.1 MEQ/L (3.5-5.1)
[2016-12-10 16:59] LABS: BICARBONATE 19.5 MEQ/L (21.0-32.0)
--- NOTE | 2016-12-10 17:33 | HHI.DCPOC ---
Discharge Care Plan Diagnosis: (1) Electrolyte disturbance (2) Acute on chronic renal insufficiency Goals to Promote Your Health * To prevent worsening of your condition and complications * To maintain your health at the optimal level Directions to Meet Your Goals Take your medications as prescribed Follow your dietary instruction Follow activity as directed Keep your appointments as scheduled Take your immunizations and boosters as scheduled If your symptoms worsen call your PCP, if no PCP go to Urgent Care Center or Emergency Room Smoking is Dangerous to Your Health. Avoid second hand smoke Call the 24-hour hour crisis hotline for domestic abuse at [facility]uther[facility] Dec 10, 2016 17:33
[2016-12-10] MEDS ORDERED: ALPRAZolam 0.5 MG TAB PO SCH (21:00)
[2017-01-08] MEDS ORDERED: LACTPOW68 PO (09:22)
[2017-02-12] MEDS ORDERED: ZIRG0.15 LEFT EYE (10:21)
== END 2016-12-10 18:27 | disposition home or self-care (01) ==
LOC: PHED 19:36 → PHEDA 21:39 → PH3A 23:34
PROVIDERS: ADMIT Family Medicine; ATTEND Family Medicine
DX: I12.9 Hypertensive chronic kidney disease with stage 1 through stage 4 chronic kidney disease, or unspecified chronic kidney disease (principal); N18.9 Chronic kidney disease, unspecified; N17.9 Acute kidney failure, unspecified; F41.9 Anxiety disorder, unspecified; K21.9 Gastro-esophageal reflux disease without esophagitis; F10.129 Alcohol abuse with intoxication, unspecified; F12.90 Cannabis use, unspecified, uncomplicated; E86.0 Dehydration; H91.90 Unspecified hearing loss, unspecified ear; R94.31 Abnormal electrocardiogram [ECG] [EKG]; Z79.899 Other long term (current) drug therapy
CPT/HCPCS: 70450; 71010; 80048; 80307; 81001; 83735; 84484; 85025; 93005; 96361; 96365; 96367; 96368; 96376; 99285; G0378; J3411; J3475; J7030; J7040

== ENCOUNTER 2016-12-28 15:48 | Emergency (ER) | payer BC ==
[~2016-12-28] VITALS: Ht 175.3 cm; Wt 68.5 kg
[~2016-12-28 15:48] MED LIST changes: -FAMO20TA2 PO; +PANT40TA3 PO
[2016-12-28 15:58] VITALS: BP 137/95; PULSE 106; RESP 16; TEMP 98.5; O2SAT 100
[2016-12-28] MEDS ORDERED: AMLO5TAB2 PO (16:11)
[2016-12-28] MEDS ORDERED: SODIUM CHLOR 0.9% 1000 ML INJ 1,000 ML IV SCH (16:39)
--- NOTE | 2016-12-28 16:39 | PD ---
HPI Chief Complaint: General Weakness Time Seen by Provider: 16:37 Travel History International Travel<30 days: No Contact w/Intl Traveler<30days: No Traveled to known affect area: No History of Present Illness HPI has had n/v/d/ over last day or so and now feeling dizzy, thinks he might be dehydrated pmhx: cdiff , divertic, pancreatitis, htn 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 ) Asthma: No Autoimmune Disease: No Anxiety: Yes Depression: No Heart Rhythm Problems: No Cancer: No Cardiovascular Problems: Yes (HTN) High Cholesterol: No Chemotherapy: No Chest Pain: No Congestive Heart Failure: No COPD: No Cerebrovascular Accident: No Diabetes: No Diminished Hearing: Yes (L ear ) Diverticulitis: Yes Endocrine: No Gastrointestinal Disorders: Yes (COLONOSCOPY JANUARY 2014) GERD: Yes Genitourinary: No Headaches: No Hiatal Hernia: No Heparin Induced Thrombocytopen: No Hypertension: Yes Immune Disorder: No Implanted Vascular Access Dvce: Yes Kidney Stones: No Medical other: Yes (KIDNEY CYST) Musculoskeletal: Yes Neurologic: Yes Psychiatric: Yes Reproductive: No Respiratory: No Immunizations Current: Yes Migraines: No Pancreatitis: Yes Radiation Therapy: No Renal Failure: No Seizures: Yes (IN PAST R/T ALCOHOL WITHDRAWAL 2013) Sickle Cell Disease: No Sleep Apnea: No Thyroid Disease: No Ulcer: No Influenza Vaccination: Yes PNEUMOCCOCAL Vaccine (Year): 2 Past Surgical History Abdominal Surgery: No AICD: No Arteriovenous Shunt: No Body Medical Devices: DISSOLVABLE SCREW IN LEFT ANKLE - placed 2014 Cardiac Surgery: No Ear Surgery: No Endocrine Surgery: No Eye Surgery: No Genitourinary Surgery: No Gynecologic Surgery: No Hysterectomy: No Insulin Pump: No Joint Replacement: Yes (L FEMUR BONE 06/2015) Neurologic Surgery: No Oral Surgery: No Pacemaker: No Thoracic Surgery: No Other Surgery: Yes (2 BACK AND ONE NECK SURGERIES-microdiskectomy,left achilles tendon repair) Social History Alcohol Use: Yes (3 TOv4 times a week, states rum) Tobacco Use: No Substance Use: Yes (states smokes marijunana Q3DAYS) Allergies-Medications (Allergen,Severity, Reaction): Coded Allergies: codeine (Unverified Allergy, Severe, RASH, 12/28/16) levofloxacin (Unverified Allergy, Severe, ACHILLES TENDON PROBLEM, 12/28/16) metronidazole (Unverified Allergy, Severe, 12/28/16) sulfamethoxazole (Unverified Allergy, Severe, Diarrhea, 12/28/16) trimethoprim (Unverified Allergy, Severe, Diarrhea, 12/28/16) Reported Meds & Prescriptions Reported Meds & Active Scripts Active Ultram (Tramadol HCl) 50 Mg Tab 50 Mg PO Q4H PRN Zofran Odt (Ondansetron Odt) 4 Mg Tab 4 Mg SL Q6HR PRN Reported Amlodipine (Amlodipine Besylate) 5 Mg Tab 5 Mg PO DAILY Pantoprazole (Pantoprazole Sodium) 40 Mg Tab 40 Mg PO DAILY Alprazolam 0.5 Mg Tab 0.5 Mg PO BID Lisinopril 20 Mg Tab 20 Mg PO DAILY Review of Systems Except as stated in HPI: all other systems reviewed are Neg Gastrointestinal: Positive: Nausea, Vomiting, Diarrhea Physical Exam Narrative GENERAL: SKIN: Warm and dry. HEAD: Atraumatic. Normocephalic. EYES: Pupils equal and round. No scleral icterus. No injection or drainage. ENT: No nasal bleeding or discharge. Mucous membranes pink and slightly dry oral mucosa NECK: Trachea midline. No JVD. CARDIOVASCULAR: Regular rate and rhythm. RESPIRATORY: No accessory muscle use. Clear to auscultation. Breath sounds equal bilaterally. GASTROINTESTINAL: Abdomen soft, non-tender, nondistended. MUSCULOSKELETAL: Extremities without clubbing, cyanosis, or edema. No obvious deformities. NEUROLOGICAL: Awake and alert. No obvious cranial nerve deficits. Motor grossly within normal limits. Five out of 5 muscle strength in the arms and legs. Normal speech. PSYCHIATRIC: Appropriate mood and affect; insight and judgment normal. Data Data Last Documented VS Vital Signs Date Time Temp Pulse Resp B/P (MAP) Pulse Ox O2 Delivery O2 Flow Rate FiO2 12/28/16 19:45 12/28/16 19:00 93 16 99 Room Air 12/28/16 19:00 99 12/28/16 18:07 98.6 Orders Orders Complete Blood Count With Diff (12/28/16 16:39) Comprehensive Metabolic Panel (12/28/16 16:39) Lipase (12/28/16 16:39) Urinalysis - C+S If Indicated (12/28/16 16:39) Iv Access Insert/Monitor (12/28/16 16:39) Ecg Monitoring (12/28/16 16:39) Oximetry (12/28/16 16:39) NPO (12/28/16 16:39) Ondansetron Inj (Zofran Inj) (12/28/16 16:45) Sodium Chlor 0.9% 1000 Ml Inj (Ns 1000 M (12/28/16 16:39) C Diff Toxin Pcr (12/28/16 16:39) Influenzae A/B Antigen (12/28/16 16:39) Giardia Antigen (Stool) (12/28/16 16:39) Stool Ova And Parasite Screen (12/28/16 16:39) Stool Wbc (Leukocytes) (12/28/16 16:39) Sodium Chlor 0.9% 1000 Ml Inj (Ns 1000 M (12/28/16 18:45) Labs Laboratory Tests Test 12/28/16 16:45 12/28/16 17:00 12/28/16 18:15 White Blood Count 8.0 TH/MM3 Red Blood Count 3.96 MIL/MM3 Hemoglobin 11.1 GM/DL Hematocrit 34.2 % Mean Corpuscular Volume 86.5 FL Mean Corpuscular Hemoglobin 28.1 PG Mean Corpuscular Hemoglobin Concent 32.5 % Red Cell Distribution Width 17.8 % Platelet Count 214 TH/MM3 Mean Platelet Volume 8.6 FL Neutrophils (%) (Auto) 76.5 % Lymphocytes (%) (Auto) 14.9 % Monocytes (%) (Auto) 7.5 % Eosinophils (%) (Auto) 0.7 % Basophils (%) (Auto) 0.4 % Neutrophils # (Auto) 6.1 TH/MM3 Lymphocytes # (Auto) 1.2 TH/MM3 Monocytes # (Auto) 0.6 TH/MM3 Eosinophils # (Auto) 0.1 TH/MM3 Basophils # (Auto) 0.0 TH/MM3 CBC Comment DIFF FINAL Differential Comment Blood Urea Nitrogen 25 MG/DL Creatinine 1.50 MG/DL Random Glucose 78 MG/DL Total Protein 8.2 GM/DL Albumin 4.0 GM/DL Calcium Level 8.9 MG/DL Alkaline Phosphatase 69 U/L Aspartate Amino Transf (AST/SGOT) 22 U/L Alanine Aminotransferase (ALT/SGPT) 15 U/L Total Bilirubin 0.3 MG/DL Sodium Level 133 MEQ/L Potassium Level 4.5 MEQ/L Chloride Level 99 MEQ/L Carbon Dioxide Level 19.5 MEQ/L Anion Gap 15 MEQ/L Estimat Glomerular Filtration Rate 47 ML/MIN Lipase 280 U/L Urine Color YELLOW Urine Turbidity CLEAR Urine pH 6.0 Urine Specific [place] 1.014 Urine Protein NEG mg/dL Urine Glucose (UA) NEG mg/dL Urine Ketones NEG mg/dL Urine Occult Blood NEG Urine Nitrite NEG Urine Bilirubin NEG Urine Leukocyte Esterase SMALL Urine RBC 0-3 /hpf Urine WBC 3-5 /hpf Urine Squamous Epithelial Cells 0-5 /hpf Microscopic Urinalysis Comment CULT NOT INDICATED Stool C. difficile Toxin (PCR) POSITIVE Stl C. difficile Toxin Epiderm 027 PRESUMPTIVE NEGATIVE MDM Medical Decision Making Medical Screen Exam Complete: Yes Emergency Medical Condition: Yes Medical Record Reviewed: Yes Differential Diagnosis bacterial v viral gastroenteritis v electrolyte abnl v c diff (low risk since patient has not been on ANY recent abx, however has hx) Narrative Course during examination no e/o bacterial (no leukocytosis, no shift) and minimal evidence of dehydration for which patient received NS bolus. additionally stool testing sent however per microbiology dept it would not be resulted in a timely manner today. patient was made aware that should any of the tests return positive, call to pharmacy of choice will be made to treat such as vancocin po for cdiff since patient stated that flagyl gave him adverse effects that made him feel worse and made it difficult to be compliant....this was taken into account. Diagnosis Primary Impression: Viral gastroenteritis Scripts Tramadol (Ultram) 50 Mg Tab 50 MG PO Q4H Y for PAIN, #10 TAB 0 Refills Prov: Wilmer Antoine MD 12/28/16 Ondansetron Odt (Zofran Odt) 4 Mg Tab 4 MG SL Q6HR Y for Nausea/Vomiting, #20 TAB 0 Refills Prov: Wilmer Antoine MD 12/28/16 Disposition: 01 DISCHARGE HOME Condition: Stable Wilmer Antoine MD Dec 28, 2016 16:39
[2016-12-28 16:44] VITALS: O2SAT 97
[2016-12-28] MEDS ORDERED: ONDANSETRON HCL 4 MG/2 ML VIAL IVP ONE (16:45)
[2016-12-28 17:00] LABS: AUTOMATED NEUTROPHIL # 6.1 TH/MM3 (1.8-7.7); BASOPHIL % 0.4 % (0.0-2.0); EOSINOPHIL # 0.1 TH/MM3 (0-0.4); EOSINOPHIL % 0.7 % (0.0-4.0); HEMATOCRIT 34.2 % (39.0-51.0); HEMO FLAGS DIFF FINAL; LYMPH % 14.9 % (9.0-44.0); LYMPHOCYTE # 1.2 TH/MM3 (1.0-4.8); MEAN CELL VOLUME 86.5 FL (80.0-100.0); MEAN CORPUSCULAR HEMOGLOBIN 28.1 PG (27.0-34.0); MEAN CORPUSCULAR HGB CONC 32.5 % (32.0-36.0); MONO % 7.5 % (0.0-8.0); NEUT % 76.5 % (16.0-70.0); PLATELET COUNT 214 TH/MM3 (150-450); RED BLOOD COUNT 3.96 MIL/MM3 (4.50-5.90); RED CELL DISTRIBUTION WIDTH 17.8 % (11.6-17.2)
[2016-12-28 17:09] LABS: CHLORIDE 99 MEQ/L (98-107); POTASSIUM 4.5 MEQ/L (3.5-5.1); SODIUM (NA) 133 MEQ/L (136-145)
[2016-12-28 17:12] LABS: BLOOD, URINE NEG (NEG); GLUCOSE,URINE NEG (NEG); KETONE, URINE NEG (NEG); NITRITE,URINE NEG (NEG)
[2016-12-28 17:14] LABS: ANION GAP 15 MEQ/L (5-15); BICARBONATE 19.5 MEQ/L (21.0-32.0); BLOOD UREA NITROGEN 25 MG/DL (7-18)
[2016-12-28 17:17] LABS: ALT (GPT) 15 U/L (12-78); AST (GOT) 22 U/L (15-37); GLOMERULAR FILTRATION RATE 47 ML/MIN (>89)
[2016-12-28 17:19] LABS: TOTAL BILIRUBIN ADULT 0.3 MG/DL (0.2-1.0)
[2016-12-28 17:20] LABS: URINE COLOR YELLOW (YELLW/STRAW)
[2016-12-28 17:20] LABS: ALKALINE PHOSPHATASE 69 U/L (45-117)
[2016-12-28 17:21] LABS: RBC, URINE 0-3 /hpf (0-3); SQUAMOUS EPITHELIAL CELL URINE 0-5 /hpf (0-5)
[2016-12-28 17:22] LABS: COMMENT (UR) CULT NOT INDICATED; CULTURE IF INDICATED CULT NOT INDICATED
[2016-12-28 18:07] VITALS: BP 149/85; PULSE 85; RESP 16; TEMP 98.6; O2SAT 98
[2016-12-28] MEDS ORDERED: ULTR50TA5 PO (18:43)
[2016-12-28] MEDS ORDERED: ZOFR4TAB3 SL (18:43)
[2016-12-28] MEDS ORDERED: SODIUM CHLOR 0.9% 1000 ML INJ 1,000 ML IV ONE (18:45)
[2016-12-28 19:00] VITALS: BP 162/93; PULSE 93; RESP 16; O2SAT 99
[2016-12-28 22:37] LABS: C. DIFF EPI 027 PRESUMPTIVE NEGATIVE (NEGATIVE)
[2017-01-08] MEDS ORDERED: LACTPOW68 PO (09:22)
[2017-02-12] MEDS ORDERED: ZIRG0.15 LEFT EYE (10:21)
== END 2016-12-28 19:47 | disposition home or self-care (01) ==
LOC: PHED 15:48
DX: A08.4 Viral intestinal infection, unspecified (principal); E86.0 Dehydration; R42 Dizziness and giddiness; I10 Essential (primary) hypertension; H91.92 Unspecified hearing loss, left ear; Z87.19 Personal history of other diseases of the digestive system; Z87.39 Personal history of other diseases of the musculoskeletal system and connective tissue; Z86.59 Personal history of other mental and behavioral disorders; Z86.79 Personal history of other diseases of the circulatory system; Z86.69 Personal history of other diseases of the nervous system and sense organs
CPT/HCPCS: 80053; 81001; 83690; 85025; 87205; 87328; 87329; 87493; 87804; 96361; 96374; 99284; J2405; J7030

== ENCOUNTER 2017-01-03 16:52 | Inpatient (IN) | payer BC ==
[~2017-01-03] VITALS: Ht 175.3 cm; Wt 68.9 kg
[~2017-01-03 16:52] MED LIST changes: -AMLO5 PO; +AMLO5TAB2 PO; +ULTR50TA5 PO; +ZOFR4TAB3 SL
[2017-01-03 17:07] VITALS: BP 172/101; PULSE 115; RESP 18; TEMP 98.2; O2SAT 100
[2017-01-03] MEDS ORDERED: VANC250C2 PO (17:09)
[2017-01-03] MEDS ORDERED: SODIUM CHLOR 0.9% 1000 ML INJ 1,000 ML IV SCH (17:33)
[2017-01-03 17:42] VITALS: O2SAT 98
[2017-01-03] MEDS ORDERED: ONDANSETRON HCL 4 MG/2 ML VIAL IVP ONE (17:45)
[2017-01-03] MEDS ORDERED: LORazepam 2 MG/ML VIAL IV PUSH ONE ×2 (17:45→18:45)
[2017-01-03] MEDS ORDERED: SODIUM CHLORIDE 0.9% FLUSH 10 ML FLUSH IV FLUSH PRN ×2 (17:45→20:30)
[2017-01-03] MEDS ORDERED: THIAMINE INJ 100 MG in SODIUM CHLORIDE 0.9% INJ 100 ML IV ONE (17:45)
--- NOTE | 2017-01-03 17:46 | PD ---
HPI Chief Complaint: GI Complaint Time Seen by Provider: 17:33 Travel History International Travel<30 days: No Contact w/Intl Traveler<30days: No Traveled to known affect area: No History of Present Illness HPI 61-year-old male presents to the emergency department by private transportation for complaint of generalized weakness lower abdominal pain and copious watery diarrhea. Patient was recently diagnosed with C. difficile diarrhea after ER visit for gastroenteritis. Patient was given oral vancomycin. Patient is been taking antibiotic but states he is taking as prescribed as he has been sleeping. Patient states today became very weak with shaking chills and he thinks he had a fever. Patient had episode of vomiting stomach contents in the emergency department. No bilious emesis no coffee-ground emesis no hematemesis. Patient has long-standing history of recurrent gastritis, anemia, hyperlipasemia, alcohol use, alcohol withdrawal seizure, acute renal failure, hypertension, diverticulitis, C. difficile colitis, anxiety, and multiple antibiotic allergies. Patient rates his pain 8/10. PFSH Past Medical History Narrative Medical recurrent gastritis, anemia, hyperlipasemia, alcohol use, alcohol withdrawal seizure, acute renal failure, hypertension, diverticulitis, C. difficile colitis , anxiety, and multiple antibiotic allergies; nursing notes reviewed Hx Anticoagulant Therapy: No Arthritis: Yes (IN BILAT. SHOULDERS ) Asthma: No Autoimmune Disease: No Anxiety: Yes Depression: No Heart Rhythm Problems: No Cancer: No Cardiovascular Problems: Yes (HTN) High Cholesterol: No Chemotherapy: No Chest Pain: No Congestive Heart Failure: No COPD: No Cerebrovascular Accident: No Diabetes: No Diminished Hearing: Yes (L ear ) Diverticulitis: Yes Endocrine: No Gastrointestinal Disorders: Yes (COLONOSCOPY JANUARY 2014) GERD: Yes Genitourinary: No Headaches: No Hiatal Hernia: No Heparin Induced Thrombocytopen: No Hypertension: Yes Immune Disorder: No Implanted Vascular Access Dvce: Yes Kidney Stones: No Musculoskeletal: Yes Neurologic: Yes Psychiatric: Yes Reproductive: No Respiratory: No Immunizations Current: Yes Migraines: No Pancreatitis: Yes Radiation Therapy: No Renal Failure: No Seizures: Yes (IN PAST R/T ALCOHOL WITHDRAWAL 2013) Sickle Cell Disease: No Sleep Apnea: No Thyroid Disease: No Ulcer: No PNEUMOCCOCAL Vaccine (Year): 2 Past Surgical History Abdominal Surgery: No AICD: No Arteriovenous Shunt: No Body Medical Devices: DISSOLVABLE SCREW IN LEFT ANKLE - placed 2014 Cardiac Surgery: No Ear Surgery: No Endocrine Surgery: No Eye Surgery: No Genitourinary Surgery: No Gynecologic Surgery: No Hysterectomy: No Insulin Pump: No Joint Replacement: Yes (L FEMUR BONE 06/2015) Neurologic Surgery: No Oral Surgery: No Pacemaker: No Thoracic Surgery: No Other Surgery: Yes (2 BACK AND ONE NECK SURGERIES-microdiskectomy,left achilles tendon repair) Social History Alcohol Use: Yes (3 TOv4 times a week, states rum) Tobacco Use: No Substance Use: Yes (states smokes marijunana Q3DAYS) Allergies-Medications (Allergen,Severity, Reaction): Coded Allergies: codeine (Unverified Allergy, Severe, RASH, 01/03/17) levofloxacin (Unverified Allergy, Severe, ACHILLES TENDON PROBLEM, 01/03/17 ) metronidazole (Unverified Allergy, Severe, 01/03/17) sulfamethoxazole (Unverified Allergy, Severe, Diarrhea, 01/03/17) trimethoprim (Unverified Allergy, Severe, Diarrhea, 01/03/17) Reported Meds & Prescriptions Reported Meds & Active Scripts Active Ultram (Tramadol HCl) 50 Mg Tab 50 Mg PO Q4H PRN Reported Vancomycin (Vancomycin HCl) 250 Mg Cap 250 Mg PO QID Amlodipine (Amlodipine Besylate) 5 Mg Tab 5 Mg PO DAILY Pantoprazole (Pantoprazole Sodium) 40 Mg Tab 40 Mg PO DAILY Alprazolam 0.5 Mg Tab 0.5 Mg PO BID Lisinopril 20 Mg Tab 20 Mg PO DAILY Review of Systems Except as stated in HPI: all other systems reviewed are Neg General / Constitutional: Positive: Fever (subjective), Chills HENT: No: Congestion Cardiovascular: No: Chest Pain or Discomfort Respiratory: No: Shortness of Breath Gastrointestinal: Positive: Nausea, Vomiting, Diarrhea, Abdominal Pain (times on multiple) Genitourinary: Positive: Decreased Urinary Output, No: Dysuria ( lower abdomen) Musculoskeletal: Positive: Myalgias, Arthralgias Skin: No Rash Neurologic: Positive: Weakness Psychiatric: Positive: Anxiety Hematologic/Lymphatic: No: Lymph Node Enlargement Physical Exam Narrative GENERAL: Well-developed well-nourished male appears mildly anxious and tremulous cervical GCS 15 SKIN: Warm and dry. HEAD: Normocephalic. EYES: No scleral icterus. No injection or drainage. NECK: Supple, trachea midline. No JVD or lymphadenopathy. CARDIOVASCULAR: Regular rate and rhythm without murmurs, gallops, or rubs. RESPIRATORY: Breath sounds equal bilaterally. No accessory muscle use. GASTROINTESTINAL: Abdomen soft, mild tenderness to palpation left lower quadrant greater than right lower quadrant no guarding or rebound nondistended. MUSCULOSKELETAL: No cyanosis, or edema. BACK: Nontender without obvious deformity. No CVA tenderness. Data Data Last Documented VS Vital Signs Date Time Temp Pulse Resp B/P (MAP) Pulse Ox O2 Delivery O2 Flow Rate FiO2 01/03/17 17:42 98 Room Air 01/03/17 17:07 98.2 115 18 172/101 (124) Orders Orders Complete Blood Count With Diff (01/03/17:33) Comprehensive Metabolic Panel (01/03/17:33) Lipase (01/03/17:33) Lactic Acid (01/03/17:33) Urinalysis - C+S If Indicated (01/03/17:33) Iv Access Insert/Monitor (01/03/17:33) Ecg Monitoring (01/03/17 17:33) Oximetry (01/03/17 17:33) Ondansetron Inj (Zofran Inj) (01/03/17 17:45) Sodium Chlor 0.9% 1000 Ml Inj (Ns 1000 M (01/03/17 17:33) Sodium Chloride 0.9% Flush (Ns Flush) (01/03/17 17:45) Blood Culture (01/03/17 17:33) Magnesium (Mg) (01/03/17 17:33) Ammonia (01/03/17 17:33) Thiamine Inj (Thiamine Inj) (01/03/17 17:45) Alcohol (Ethanol) (01/03/17 17:33) Lorazepam Inj (Ativan Inj) (01/03/17 17:45) Sodium Chlor 0.9% 1000 Ml Inj (Ns 1000 M (01/03/17 18:45) Lactic Acid (01/03/17 19:30) Vancomycin Inj (Vancomycin Inj) (01/03/17 18:45) Cefepime Inj (Maxipime Inj) (01/03/17 18:45) Ondansetron Inj (Zofran Inj) (01/03/17 18:45) Lorazepam Inj (Ativan Inj) (01/03/17 18:45) Morphine Inj (Morphine Inj) (01/03/17 18:45) Ct Abd/Pel W/O Iv Contrast (01/03/17 ) Admit To Inpatient (01/03/17 ) Vital Signs (Adult) Q4H (01/03/17 20:20) Activity Oob With Assistance (01/03/17 20:20) Builder Beam / Telemetry .CONTINUOUS (01/03/17 20:20) Diet Heart Healthy (01/04/17 Breakfast) Sodium Chloride 0.9% Flush (Ns Flush) (01/03/17 20:30) Sodium Chloride 0.9% Flush (Ns Flush) (01/03/17 21:00) Basic Metabolic Panel (Bmp) (01/04/17 06:00) Complete Blood Count With Diff (01/04/17 06:00) Case Management Consult (01/03/17 20:20) Naloxone Inj (Narcan Inj) (01/03/17 20:30) Inpatient Certification (01/03/17 ) Lorazepam Inj (Ativan Inj) (01/03/17 21:00) Chlordiazepoxide (Librium) (01/04/17 09:00) Thiamine (Vit B1) (Vitamin B1) (01/04/17 09:00) Thiamine (Vit B1) (Vitamin B1) (01/03/17 21:00) Isolation (01/03/17 20:21) Vancomycin For Oral Use Only (Vancomycin (01/03/17 21:00) Admit Order (Ed Use Only) (01/03/17 ) ^ Saline Lock (01/03/17 20:22) Resp Oxygen Shaun C Titrat 1-4 L (01/03/17 ) Notify Dr: Other (01/03/17 20:22) Sodium Chloride 0.9% Flush (Ns Flush) (01/03/17 21:00) Sodium Chloride 0.9% Flush (Ns Flush) (01/03/17 20:30) Sodium Chlor 0.9% 1000 Ml Inj (Ns 1000 M (01/03/17 20:30) Magnesium Sulfate 1 Gm Premix (Magnesium (01/03/17 20:30) Labs Laboratory Tests Test 01/03/17 17:30 01/03/17 20:21 White Blood Count 9.0 TH/MM3 Red Blood Count 3.92 MIL/MM3 Hemoglobin 11.3 GM/DL Hematocrit 33.6 % Mean Corpuscular Volume 85.7 FL Mean Corpuscular Hemoglobin 28.8 PG Mean Corpuscular Hemoglobin Concent 33.5 % Red Cell Distribution Width 18.2 % Platelet Count 341 TH/MM3 Mean Platelet Volume 8.3 FL Neutrophils (%) (Auto) 76.0 % Lymphocytes (%) (Auto) 12.8 % Monocytes (%) (Auto) 8.7 % Eosinophils (%) (Auto) 0.2 % Basophils (%) (Auto) 2.3 % Neutrophils # (Auto) 6.8 TH/MM3 Lymphocytes # (Auto) 1.2 TH/MM3 Monocytes # (Auto) 0.8 TH/MM3 Eosinophils # (Auto) 0.0 TH/MM3 Basophils # (Auto) 0.2 TH/MM3 CBC Comment AUTO DIFF Differential Comment AUTO DIFF CONFIRMED Platelet Estimate NORMAL Platelet Morphology Comment CLUMPED Blood Urea Nitrogen 28 MG/DL Creatinine 1.80 MG/DL Random Glucose 82 MG/DL Total Protein 8.8 GM/DL Albumin 4.2 GM/DL Calcium Level 9.2 MG/DL Magnesium Level 0.8 MG/DL Alkaline Phosphatase 73 U/L Aspartate Amino Transf (AST/SGOT) 29 U/L Alanine Aminotransferase (ALT/SGPT) 17 U/L Total Bilirubin 0.4 MG/DL Sodium Level 133 MEQ/L Potassium Level 4.4 MEQ/L Chloride Level 101 MEQ/L Carbon Dioxide Level 14.5 MEQ/L Anion Gap 18 MEQ/L Estimat Glomerular Filtration Rate 38 ML/MIN Lactic Acid Level 6.1 mmol/L Ammonia 29 MCMOL/L Lipase 348 U/L Ethyl Alcohol Level 24 MG/DL Urine Color YELLOW Urine Turbidity CLEAR Urine pH 5.5 Urine Specific [place] 1.009 Urine Protein NEG mg/dL Urine Glucose (UA) NEG mg/dL Urine Ketones NEG mg/dL Urine Occult Blood NEG Urine Nitrite NEG Urine Bilirubin NEG Urine Leukocyte Esterase NEG Urine Squamous Epithelial Cells 0-5 /hpf Urine Hyaline Casts 6-9 /lpf Urine Mucus OCC /lpf Microscopic Urinalysis Comment CULT NOT INDICATED MDM Medical Decision Making Medical Screen Exam Complete: Yes Emergency Medical Condition: Yes Medical Record Reviewed: Yes Interpretation(s) Last Impressions Abdomen/Pelvis CT 01/03/17 0000 Signed Impressions: Service Date/Time: Tuesday, January 03, 2017 18:59 - CONCLUSION: 1. Uncomplicated sigmoid diverticulosis. 2. No evidence of acute process. 3. Status post left hip replacement Francisco Cote MD CBC & BMP Diagram 01/03/17 17:30 Total Protein 8.8 #H, Albumin 4.2, Calcium Level 9.2, Magnesium Level 0.8 L, Alkaline Phosphatase 73, Aspartate Amino Transf (AST/SGOT) 29, Alanine Aminotransferase (ALT/SGPT) 17, Total Bilirubin 0.4 Vital Signs Date Time Temp Pulse Resp B/P (MAP) Pulse Ox O2 Delivery O2 Flow Rate FiO2 01/03/17 17:42 98 Room Air 01/03/17 17:07 98.2 115 18 172/101 (124) 100 CT abd/pel; CONCLUSION: 1. Uncomplicated sigmoid diverticulosis. 2. No evidence of acute process. 3. Status post left hip replacement Francisco Cote MD on January 03, 2017 at 19:16 Board Certified Radiologist. This report was verified electronically. Differential Diagnosis C. difficile colitis, sepsis, dehydration, or cold abuse, alcohol withdrawal, dehydration, electronic disturbance, diverticulitis, viscus perforation Narrative Course Zofran 4 mg for complaint of nausea and Ativan 0.5 mg IV for complaint of feeling jittery and agitated Sepsis Criteria SIRS Criteria (2 or more): Heart rate over 90 Septic Shock Criteria: Lactic acid >=4 Physician Communication Physician Communication call placed to [facility] service Diagnosis Primary Impression: Generalized weakness Additional Impressions: Dehydration Clostridium difficile infection Acute renal failure superimposed on stage 2 chronic kidney disease Jen Gomes MD Jan 03, 2017 17:46
[2017-01-03 18:19] LABS: AUTOMATED NEUTROPHIL # 6.8 TH/MM3 (1.8-7.7); BASOPHIL # 0.2 TH/MM3 (0-0.2); BASOPHIL % 2.3 % (0.0-2.0); EOSINOPHIL % 0.2 % (0.0-4.0); HEMATOCRIT 33.6 % (39.0-51.0); LYMPH % 12.8 % (9.0-44.0); LYMPHOCYTE # 1.2 TH/MM3 (1.0-4.8); MEAN CELL VOLUME 85.7 FL (80.0-100.0); MEAN CORPUSCULAR HEMOGLOBIN 28.8 PG (27.0-34.0); MEAN CORPUSCULAR HGB CONC 33.5 % (32.0-36.0); MONO % 8.7 % (0.0-8.0); PLATELET COUNT 341 TH/MM3 (150-450); RED BLOOD COUNT 3.92 MIL/MM3 (4.50-5.90); RED CELL DISTRIBUTION WIDTH 18.2 % (11.6-17.2)
[2017-01-03 18:21] LABS: HEMO FLAGS AUTO DIFF
[2017-01-03 18:24] LABS: CHLORIDE 101 MEQ/L (98-107); POTASSIUM 4.4 MEQ/L (3.5-5.1); SODIUM (NA) 133 MEQ/L (136-145)
[2017-01-03 18:28] LABS: ANION GAP 18 MEQ/L (5-15); BICARBONATE 14.5 MEQ/L (21.0-32.0); BLOOD UREA NITROGEN 28 MG/DL (7-18); MAGNESIUM 0.8 MG/DL (1.5-2.5)
[2017-01-03 18:31] LABS: ALT (GPT) 17 U/L (12-78); AST (GOT) 29 U/L (15-37); GLOMERULAR FILTRATION RATE 38 ML/MIN (>89)
[2017-01-03 18:32] LABS: TOTAL BILIRUBIN ADULT 0.4 MG/DL (0.2-1.0)
[2017-01-03 18:33] LABS: ALKALINE PHOSPHATASE 73 U/L (45-117)
[2017-01-03 18:39] LABS: ALCOHOL 24 MG/DL (0-5)
[2017-01-03 18:42] LABS: PLATELET ESTIMATE SMEAR NORMAL (NORMAL)
[2017-01-03 18:43] LABS: PLATELET MORPHOLOGY CLUMPED (NORMAL); SCAN/DIFF AUTO DIFF CONFIRMED
[2017-01-03] MEDS ORDERED: VANCOMYCIN INJ 1,000 MG in SODIUM CHLOR 0.9% 250 ML INJ 250 ML IV ONE (18:45)
[2017-01-03] MEDS ORDERED: CEFEPIME INJ 2,000 MG in SODIUM CHLORIDE 0.9% INJ 100 ML IV ONE (18:45)
[2017-01-03] MEDS ORDERED: SODIUM CHLOR 0.9% 1000 ML INJ 1,000 ML IV ONE (18:45)
[2017-01-03] MEDS ORDERED: ONDANSETRON HCL 4 MG/2 ML VIAL IV PUSH ONE (18:45)
[2017-01-03] MEDS ORDERED: MORPHINE SULFATE 4 MG/ML INJ IV PUSH ONE (18:45)
--- NOTE | 2017-01-03 19:20 | RADRPT ---
EXAM DATE/TIME: 01/03/2017 18:59 [facility] COMPARISON: CT ABDOMEN & PELVIS W/O CONTRAST, August 14, 2016, 11:05. INDICATIONS : Lower abdominal pain. General weakness. Diarrhea. ORAL CONTRAST: No oral contrast ingested. RADIATION DOSE: 8.62 CTDIvol (mGy) MEDICAL HISTORY : Gastroesophageal reflux disease. Diverticulitis. Seizures.Hypertension. SURGICAL HISTORY : None. ENCOUNTER: Initial ACUITY: 1 day PAIN SCALE: 2/10 LOCATION: Bilateral lower quadrant TECHNIQUE: Volumetric scanning of the abdomen and pelvis was performed. Using automated exposure control and ad justment of the mA and/or kV according to patient size, radiation dose was kept as low as reasonably achievable to obtain optimal diagnostic quality images. DICOM format image data is available electro nically for review and comparison. FINDINGS: LOWER LUNGS: The visualized lower lungs are clear. LIVER: Homogeneous density without lesion. There is no dilation of the biliary tree. No calcified gallston es. SPLEEN: Normal size without lesion. PANCREAS: Within normal limits. KIDNEYS: Normal in size and shape. There is no mass, stone, or hydronephrosis. ADRENAL GLANDS: Within normal limits. VASCULAR: There is no aortic aneurysm. BOWEL/MESENTERY: Small diverticula are again noted throughout the sigmoid colon. There are no active inflammatory cardona ges. The stomach, small bowel, and colon demonstrate no acute abnormality. There is no free intraper itoneal air or fluid. ABDOMINAL WALL: Within normal limits. RETROPERITONEUM: There is no lymphadenopathy. BLADDER: No wall thickening or mass. REPRODUCTIVE: Within normal limits. INGUINAL: There is no lymphadenopathy or hernia. MUSCULOSKELETAL: Left hip has been replaced. CONCLUSION: 1. Uncomplicated sigmoid diverticulosis. 2. No evidence of acute process. 3. Status post left hip replacement Francisco Cote MD on January 03, 2017 at 19:16 Board Certified Radiologist. This report was verified electronically.
[2017-01-03] MEDS ORDERED: SODIUM CHLORIDE 0.9% FLUSH 10 ML FLUSH IVF PRN (20:30)
[2017-01-03] MEDS ORDERED: NALOXONE HCL 0.4 MG/ML AMP IV PRN (20:30)
[2017-01-03 20:37] LABS: BLOOD, URINE NEG (NEG); GLUCOSE,URINE NEG (NEG); KETONE, URINE NEG (NEG); NITRITE,URINE NEG (NEG); PH, URINE 5.5 (5.0-8.5)
[2017-01-03] MEDS ORDERED: THIAMINE HCL 100 MG TAB PO ONE (21:00)
[2017-01-03] MEDS ORDERED: LORazepam 2 MG/ML VIAL IV PUSH PRN (21:00)
[2017-01-03] MEDS: SODIUM CHLORIDE 0.9% FLUSH 10 ML FLUSH IV FLUSH SCH (21:00)
[2017-01-03] MEDS ORDERED: SODIUM CHLORIDE 0.9% FLUSH 10 ML FLUSH IV FLUSH SCH (21:00)
[2017-01-03 21:05] LABS: MUCUS URINE OCC /lpf (OCC); SQUAMOUS EPITHELIAL CELL URINE 0-5 /hpf (0-5); URINE COLOR YELLOW (YELLW/STRAW)
[2017-01-03 21:06] LABS: COMMENT (UR) CULT NOT INDICATED; CULTURE IF INDICATED CULT NOT INDICATED
[2017-01-03] MEDS: SODIUM CHLOR 0.9% 1000 ML INJ 1,000 ML IV SCH (21:18)
[2017-01-03 21:30] VITALS: O2SAT 96
[2017-01-03] MEDS: MAGNESIUM SULFATE 1 GM PREMIX 100 ML IV SCH ×2 (21:30→22:51)
[2017-01-03] MEDS: VANCOMYCIN 500 MG VIAL (FOR ORAL USE ONLY) PO SCH (22:51)
[2017-01-04] VITALS (8 sets, daily range): BP systolic 138–187; BP diastolic 87–104; PULSE 66–95; RESP 12–20; TEMP 96.5–98.4; O2SAT 96–100
[2017-01-04] MEDS: SODIUM CHLOR 0.9% 1000 ML INJ 1,000 ML IV SCH ×4 (01:44→21:47)
[2017-01-04 08:26] LABS: AUTOMATED NEUTROPHIL # 3.9 TH/MM3 (1.8-7.7); BASOPHIL # 0.1 TH/MM3 (0-0.2); BASOPHIL % 1.5 % (0.0-2.0); EOSINOPHIL # 0.1 TH/MM3 (0-0.4); EOSINOPHIL % 1.3 % (0.0-4.0); HEMO FLAGS DIFF FINAL; LYMPH % 20.5 % (9.0-44.0); LYMPHOCYTE # 1.3 TH/MM3 (1.0-4.8); MEAN CELL VOLUME 85.5 FL (80.0-100.0); MEAN CORPUSCULAR HEMOGLOBIN 27.6 PG (27.0-34.0); MEAN CORPUSCULAR HGB CONC 32.3 % (32.0-36.0); MONO % 15.8 % (0.0-8.0); NEUT % 60.9 % (16.0-70.0); PLATELET COUNT 317 TH/MM3 (150-450); RED BLOOD COUNT 3.63 MIL/MM3 (4.50-5.90); WHITE BLOOD COUNT 6.4 TH/MM3 (4.0-11.0)
[2017-01-04] MEDS: THIAMINE HCL 100 MG TAB PO SCH (08:43)
[2017-01-04] MEDS: chlordiazePOXIDE 25 MG CAP PO SCH ×2 (08:43→12:28)
[2017-01-04] MEDS: VANCOMYCIN 500 MG VIAL (FOR ORAL USE ONLY) PO SCH ×4 (08:47→21:40)
[2017-01-04] MEDS: SODIUM CHLORIDE 0.9% FLUSH 10 ML FLUSH IV FLUSH SCH ×2 (08:47→21:47)
[2017-01-04 09:16] LABS: BICARBONATE 18.9 MEQ/L (21.0-32.0); POTASSIUM 4.4 MEQ/L (3.5-5.1)
[2017-01-04] MEDS: amLODIPine BESYLATE 5 MG TAB PO SCH (10:31)
[2017-01-04] MEDS: PANTOPRAZOLE SOD 40 MG DELAYED RELEASE TAB PO SCH (10:31)
[2017-01-04] MEDS: cloNIDine HCL 0.1 MG TAB PO PRN ×2 (16:10→21:40)
--- NOTE | 2017-01-04 16:23 | HHI.HP ---
[facility] Service [facility] Primary Care Physician Yamil Collado, Admission Diagnosis Generalized weakness; C diff w/ dehydration; alcohol W/D Diagnoses: Travel History International Travel<30 Days: No Contact w/Intl Traveler <30 Da: No Traveled to Known Affected Are: No History of Present Illness This is a 61 year-old male known to me from previous admissions who presents to the ER with generalized weakness and chills. He has a history of pancreatitis and recurrent C. difficile colitis. The patient was seen in the emergency department on December 28 for dehydration at that time C. difficile was positive. The patient has been on by mouth vancomycin. He states that he is only had 3 loose stool several days ago and none since. Yesterday he rode his bike about 5 miles and started to feel dehydrated. He went home and took a shower and then afterwards had shaking chills. He also has diffuse abdominal pain. Because of this he returned to the ER for evaluation. The patient endorses nausea but denies vomiting. Denies blood in the stool. He states he has been taking the vancomycin. He denies alcohol use. In the emergency department his lactic acid initially was 6.1 and he had metabolic acidosis with creatinine of 1.8. He was given IV fluids and lactate this morning is 1 with stable/elevated blood pressures. Patient states he's feeling better today. Review of Systems Constitutional: COMPLAINS OF: Chills, DENIES: Fever Eyes: DENIES: Blurred vision, Diplopia Ears, nose, mouth, throat: DENIES: Throat pain, Hoarseness Respiratory: DENIES: Cough, Shortness of breath Cardiovascular: DENIES: Palpitations, Lower Extremity Edema Gastrointestinal: COMPLAINS OF: Abdominal pain, Nausea, DENIES: Vomiting Genitourinary: DENIES: Urgency, Dysuria Musculoskeletal: DENIES: Joint Swelling, Neck pain Integumentary: DENIES: Rash Hematologic/lymphatic: DENIES: Lymphadenopathy Neurologic: DENIES: Abnormal gait, Headache Psychiatric: DENIES: Anxiety, Confusion Past Family Social History Past Medical History Hypertension History of alcohol abuse with withdrawal seizures History of DVTs History of diverticulitis GERD Arthritis History of pancreatitis Recurrent clostridium difficile Past Surgical History Rectal surgery Left-sided chest tube Back surgery 2 Neck surgery Left Achilles tendon surgery Left hip hemiarthroplasty Reported Medications Allergies Coded Allergies Type Severity Reaction Last Updated Verified codeine Allergy Severe RASH 01/03/17 No levofloxacin Allergy Severe ACHILLES TENDON PROBLEM 01/03/17 No metronidazole Allergy Severe 01/03/17 No sulfamethoxazole Allergy Severe Diarrhea 01/03/17 No trimethoprim Allergy Severe Diarrhea 01/03/17 No Active Scripts Medications Dose Route/Sig Max Daily Dose Days Date Category Vancomycin (Vancomycin HCl) 250 Mg Cap 250 Mg PO QID 01/03/17 Reported Ultram (Tramadol HCl) 50 Mg Tab 50 Mg PO Q4H PRN 12/28/16 Rx Amlodipine (Amlodipine Besylate) 5 Mg Tab 5 Mg PO DAILY 12/28/16 Reported Pantoprazole (Pantoprazole Sodium) 40 Mg Tab 40 Mg PO DAILY 12/09/16 Reported Alprazolam 0.5 Mg Tab 0.5 Mg PO BID 03/13/16 Reported Lisinopril 20 Mg Tab 20 Mg PO DAILY 03/13/16 Reported Allergies: Coded Allergies: codeine (Unverified Allergy, Severe, RASH, 01/03/17) levofloxacin (Unverified Allergy, Severe, ACHILLES TENDON PROBLEM, 01/03/17 ) metronidazole (Unverified Allergy, Severe, 01/03/17) sulfamethoxazole (Unverified Allergy, Severe, Diarrhea, 01/03/17) trimethoprim (Unverified Allergy, Severe, Diarrhea, 01/03/17) Family History reviewed, NC Social History denies etoh Physical Exam Vital Signs Vital Signs Date Time Temp Pulse Resp B/P (MAP) Pulse Ox O2 Delivery O2 Flow Rate FiO2 01/04/17 11:53 98.0 68 20 156/88 (110) 97 01/04/17 10:37 96 21 01/04/17 09:03 97.1 72 16 160/91 (114) 98 01/04/17 03:51 96.5 88 20 154/101 (118) 98 01/04/17 02:58 98.4 88 12 138/87 (104) 96 Room Air 01/04/17 01:17 86 18 170/101 (124) 98 Room Air 01/03/17 23:09 16 01/03/17 21:30 96 21 01/03/17 17:42 98 Room Air 01/03/17 17:07 98.2 115 18 172/101 (124) 100 Physical Exam GENERAL: Well-nourished, well-developed patient. SKIN: Warm and dry. HEAD: Normocephalic. EYES: No scleral icterus. No injection or drainage. NECK: Supple, trachea midline. No JVD or lymphadenopathy. CARDIOVASCULAR: Regular rate and rhythm without murmurs, gallops, or rubs. RESPIRATORY: Breath sounds equal bilaterally. No accessory muscle use. GASTROINTESTINAL: Abdomen soft, non-tender, nondistended. EXTREMITIES: No cyanosis, or edema. NEUROLOGICAL: Awake, alert, and oriented x 3. Non-focal. Laboratory Laboratory Tests Test 01/03/17 17:30 01/03/17 20:21 01/03/17 21:03 01/04/17 08:07 White Blood Count 9.0 6.4 Red Blood Count 3.92 3.63 Hemoglobin 11.3 10.0 Hematocrit 33.6 31.0 Mean Corpuscular Volume 85.7 85.5 Mean Corpuscular Hemoglobin 28.8 27.6 Mean Corpuscular Hemoglobin Concent 33.5 32.3 Red Cell Distribution Width 18.2 18.0 Platelet Count 341 317 Mean Platelet Volume 8.3 7.6 Neutrophils (%) (Auto) 76.0 60.9 Lymphocytes (%) (Auto) 12.8 20.5 Monocytes (%) (Auto) 8.7 15.8 Eosinophils (%) (Auto) 0.2 1.3 Basophils (%) (Auto) 2.3 1.5 Neutrophils # (Auto) 6.8 3.9 Lymphocytes # (Auto) 1.2 1.3 Monocytes # (Auto) 0.8 1.0 Eosinophils # (Auto) 0.0 0.1 Basophils # (Auto) 0.2 0.1 CBC Comment AUTO DIFF DIFF FINAL Differential Comment AUTO DIFF CONFIRMED Platelet Estimate NORMAL Platelet Morphology Comment CLUMPED Blood Urea Nitrogen 28 20 Creatinine 1.80 1.30 Random Glucose 82 76 Total Protein 8.8 Albumin 4.2 Calcium Level 9.2 8.1 Magnesium Level 0.8 Alkaline Phosphatase 73 Aspartate Amino Transf (AST/SGOT) 29 Alanine Aminotransferase (ALT/SGPT) 17 Total Bilirubin 0.4 Sodium Level 133 140 Potassium Level 4.4 4.4 Chloride Level 101 109 Carbon Dioxide Level 14.5 18.9 Anion Gap 18 12 Estimat Glomerular Filtration Rate 38 56 Lactic Acid Level 6.1 1.0 Ammonia 29 Lipase 348 Ethyl Alcohol Level 24 Urine Color YELLOW Urine Turbidity CLEAR Urine pH 5.5 Urine Specific [place] 1.009 Urine Protein NEG Urine Glucose (UA) NEG Urine Ketones NEG Urine Occult Blood NEG Urine Nitrite NEG Urine Bilirubin NEG Urine Leukocyte Esterase NEG Urine Squamous Epithelial Cells 0-5 Urine Hyaline Casts 6-9 Urine Mucus OCC Microscopic Urinalysis Comment CULT NOT INDICATED Date/Time Source Procedure Growth Status 01/03/17 17:37 Blood Peripheral Aerobic Blood Culture - Preliminary NO GROWTH IN 1 DAY Resulted 01/03/17 17:37 Blood Peripheral Anaerobic Blood Culture - Preliminary NO GROWTH IN 1 DAY Resulted Result Diagram: 01/04/17 0807 01/04/17 0807 Imaging Last Impressions Abdomen/Pelvis CT 01/03/17 0000 Signed Impressions: Service Date/Time: Tuesday, January 03, 2017 18:59 - CONCLUSION: 1. Uncomplicated sigmoid diverticulosis. 2. No evidence of acute process. 3. Status post left hip replacement MD Dina Christian VTE Risk Assessment Caprini VTE Risk Assessment: Mod/High Risk (score >= 2) Caprini Risk Assessment Model Point Value = 1 Point Value = 2 Point Value = 3 Point Value = 5 Age 41-60 Minor surgery BMI > 25 kg/m2 Swollen legs Varicose veins or History of unexplained or recurrent spontaneous Oral contraceptives or hormone replacement Sepsis (< 1 month) Serious lung disease, including pneumonia (< 1 month) Abnormal pulmonary function Acute myocardial infarction Congestive heart failure (< 1 month) History of inflammatory bowel disease Medical patient at bed rest Age 61-74 Arthroscopic surgery Major open surgery (> 45 min) Laparoscopic surgery (> 45 min) Malignancy Confined to bed (> 72 hours) Immobilizing plaster cast Central venous access Age >= 75 History of VTE Family history of VTE Factor V Leiden Prothrombin [id number] Lupus anticoagulant Anticardiolipin antibodies Elevated serum homocysteine Heparin-induced thrombocytopenia Other congenital or acquired thrombophilia Stroke (< 1 month) Elective arthroplasty Hip, pelvis, or leg fracture Acute spinal cord injury (< 1 month) Prophylaxis Regimen Total Risk Factor Score Risk Level Prophylaxis Regimen 0-1 Low Early ambulation 2 Moderate Order ONE of the following: *Sequential Compression Device (SCD) *Heparin 5000 units SQ BID 3-4 Higher Order ONE of the following medications: *Heparin 5000 units SQ TID *Enoxaparin/Lovenox 40 mg SQ daily (WT < 150 kg, CrCl > 30 mL/min) *Enoxaparin/Lovenox 30 mg SQ daily (WT < 150 kg, CrCl > 10-29 mL/min) *Enoxaparin/Lovenox 30 mg SQ BID (WT < 150 kg, CrCl > 30 mL/min) AND/OR *Sequential Compression Device (SCD) 5 or more Highest Order ONE of the following medications: *Heparin 5000 units SQ TID (Preferred with Epidurals) *Enoxaparin/Lovenox 40 mg SQ daily (WT < 150 kg, CrCl > 30 mL/min) *Enoxaparin/Lovenox 30 mg SQ daily (WT < 150 kg, CrCl > 10-29 mL/min) *Enoxaparin/Lovenox 30 mg SQ BID (WT < 150 kg, CrCl > 30 mL/min) AND *Sequential Compression Device (SCD) Assessment and Plan Problem List: (1) Lactic acid acidosis ICD Code: E87.2 - Acidosis (2) Severe dehydration ICD Code: E86.0 - Dehydration (3) Uncontrolled hypertension ICD Code: I10 - Essential (primary) hypertension Status: Acute (4) Acute renal failure ICD Code: N17.9 - Acute kidney failure, unspecified Status: Acute (5) C. difficile colitis ICD Code: A04.7 - Enterocolitis due to Clostridium difficile Status: Acute Assessment and Plan -C. difficile colitis, the patient's third or fourth recurrence. He does not tolerate Flagyl secondary to nausea. We'll continue him on vancomycin by mouth. He seems to rapidly improved and in fact is not having loose stools. Consider infectious disease consult given the recurrence. He will likely be on a vancomycin taper on discharge. -Severe lactic acidosis secondary to dehydration and colitis. Now resolved. Will Hep-Lock IV. -Acute kidney injury with Dehydration, resolved. Hep-Lock IV. -Hypertension-resume Norvasc and lisinopril -History of alcohol abuse with withdrawal seizures-denies any recent alcohol use and labs are consistent with this. -GERD-continue PPI -DVT prophylaxis with Lovenox Lyn Artis MD Jan 04, 2017 16:23
[2017-01-04] MEDS: ENOXAPARIN SODIUM 40 MG/0.4 ML SYRINGE SQ SCH (17:02)
[2017-01-04] MEDS: ALPRAZolam 0.5 MG TAB PO SCH (21:40)
[2017-01-05] VITALS (8 sets, daily range): BP systolic 117–188; BP diastolic 88–107; PULSE 52–77; RESP 16–20; TEMP 96.7–98.1; O2SAT 97–100
[2017-01-05] MEDS ORDERED: HYDROmorphone HCL PF 1 MG/ML VIAL IV PUSH PRN (01:00)
[2017-01-05] MEDS: SODIUM CHLOR 0.9% 1000 ML INJ 1,000 ML IV SCH (06:22)
[2017-01-05] MEDS: cloNIDine HCL 0.1 MG TAB PO PRN ×2 (06:22→17:02)
[2017-01-05 08:26] LABS: BICARBONATE 23.2 MEQ/L (21.0-32.0)
[2017-01-05 08:44] LABS: AUTOMATED NEUTROPHIL # 3.4 TH/MM3 (1.8-7.7); BASOPHIL # 0.1 TH/MM3 (0-0.2); BASOPHIL % 1.4 % (0.0-2.0); EOSINOPHIL # 0.2 TH/MM3 (0-0.4); EOSINOPHIL % 3.1 % (0.0-4.0); HEMATOCRIT 28.5 % (39.0-51.0); LYMPH % 26.1 % (9.0-44.0); LYMPHOCYTE # 1.7 TH/MM3 (1.0-4.8); MEAN CORPUSCULAR HEMOGLOBIN 29.6 PG (27.0-34.0); MEAN CORPUSCULAR HGB CONC 33.2 % (32.0-36.0); MONO % 15.4 % (0.0-8.0); PLATELET COUNT 250 TH/MM3 (150-450); RED BLOOD COUNT 3.21 MIL/MM3 (4.50-5.90); RED CELL DISTRIBUTION WIDTH 18.1 % (11.6-17.2); WHITE BLOOD COUNT 6.4 TH/MM3 (4.0-11.0)
[2017-01-05 08:48] LABS: HEMO FLAGS AUTO DIFF
[2017-01-05] MEDS: SODIUM CHLORIDE 0.9% FLUSH 10 ML FLUSH IV FLUSH SCH ×2 (09:00→21:15)
[2017-01-05] MEDS: ALPRAZolam 0.5 MG TAB PO SCH ×2 (09:01→21:15)
[2017-01-05] MEDS: VANCOMYCIN 500 MG VIAL (FOR ORAL USE ONLY) PO SCH ×4 (09:01→21:15)
[2017-01-05] MEDS: THIAMINE HCL 100 MG TAB PO SCH (09:01)
[2017-01-05] MEDS: LISINOPRIL 20 MG TAB PO SCH (09:01)
[2017-01-05] MEDS: PANTOPRAZOLE SOD 40 MG DELAYED RELEASE TAB PO SCH (09:01)
[2017-01-05] MEDS: amLODIPine BESYLATE 5 MG TAB PO SCH (09:01)
[2017-01-05] MEDS ORDERED: HYDROmorphone HCL 2 MG TAB PO PRN (09:15)
[2017-01-05 09:36] LABS: SCAN/DIFF AUTO DIFF CONFIRMED
[2017-01-05] MEDS ORDERED: VANC125C3 PO (11:35)
--- NOTE | 2017-01-05 13:21 | HHI.PR ---
Subjective Remarks Patient is not happy with the food choices from the cafeteria. The patient complains of lower abdominal pain and states that Dilaudid by mouth does not work and request Lortab instead. Patient had a bowel movement which was fully formed, no diarrhea. No fevers or chills. He still feels weak but overall improved. Objective Vitals Vital Signs Date Time Temp Pulse Resp B/P (MAP) Pulse Ox O2 Delivery O2 Flow Rate FiO2 01/05/17 09:00 52 01/05/17 04:00 96.7 60 20 188/107 (134) 98 01/05/17 03:43 98 21 01/05/17 00:00 98.1 60 20 188/106 (133) 98 01/04/17 20:00 66 01/04/17 20:00 97.6 71 20 163/104 (123) 98 01/04/17 16:14 97.1 95 16 187/101 (129) 100 I/O 01/04/17 01/04/17 01/04/17 01/05/17 01/05/17 01/05/17 07:00 15:00 23:00 07:00 15:00 23:00 Intake Total 1340 ml 960 ml Output Total 750 ml Balance 1340 ml 210 ml Intake Oral 240 ml 960 ml IV Total 1100 ml Output Urine Total 750 ml # Voids 1 4 Result Diagram: 01/05/17 0755 01/05/17 0755 Objective Remarks GENERAL: Well-nourished, well-developed patient. SKIN: Warm and dry. HEAD: Normocephalic. EYES: No scleral icterus. No injection or drainage. NECK: Supple, trachea midline. No JVD or lymphadenopathy. CARDIOVASCULAR: Regular rate and rhythm without murmurs, gallops, or rubs. RESPIRATORY: Breath sounds equal bilaterally. No accessory muscle use. GASTROINTESTINAL: Bowel sounds normal. Abdomen soft, mildly tender in the suprapubic area, nondistended. EXTREMITIES: No cyanosis, or edema. NEUROLOGICAL: Awake, alert, and oriented x 3. Non-focal. A/P Problem List: (1) Lactic acid acidosis ICD Code: E87.2 - Acidosis (2) Severe dehydration ICD Code: E86.0 - Dehydration (3) Uncontrolled hypertension ICD Code: I10 - Essential (primary) hypertension Status: Acute (4) Acute renal failure ICD Code: N17.9 - Acute kidney failure, unspecified Status: Acute (5) C. difficile colitis ICD Code: A04.7 - Enterocolitis due to Clostridium difficile Status: Acute Assessment and Plan -C. difficile colitis, the patient's third or fourth recurrence. He does not tolerate Flagyl secondary to nausea. We'll continue him on vancomycin by mouth. He seems to have rapidly improved and in fact is not having loose stools. We'll consult gastroenterology for consideration of fecal transplant, he is followed by advanced gastroenterology. At [facility] for pain. We'll prescribe vancomycin pulsed tapering dose on discharge. -Severe lactic acidosis secondary to dehydration and colitis. Now resolved. Will Hep-Lock IV. -Acute kidney injury with Dehydration, resolved. Hep-Lock IV. -Hypertension-resume Norvasc and lisinopril -History of alcohol abuse with withdrawal seizures-denies any recent alcohol use and labs are consistent with this. -GERD-continue PPI -DVT prophylaxis with Lovenox Lyn Artis MD Jan 05, 2017 13:21
[2017-01-05] MEDS ORDERED: MAGNESIUM CITRATE SOLN 300 ML BTL PO ONE (14:30)
[2017-01-05] MEDS: ACETAMINOPHEN/HYDROcodone 325 MG/7.5 MG TAB PO PRN ×2 (14:40→21:17)
[2017-01-05] MEDS: ENOXAPARIN SODIUM 40 MG/0.4 ML SYRINGE SQ SCH (17:02)
[2017-01-06] VITALS: BP 164/100; PULSE 56; RESP 17; TEMP 96.5; O2SAT 99
[2017-01-06 04:00] VITALS: BP 140/100; PULSE 77; RESP 16; TEMP 98.9; O2SAT 100
[2017-01-06 08:00] VITALS: BP 176/104; PULSE 69; RESP 20; TEMP 97.6; O2SAT 97
[2017-01-06] MEDS: THIAMINE HCL 100 MG TAB PO SCH (08:47)
[2017-01-06] MEDS: ALPRAZolam 0.5 MG TAB PO SCH ×2 (08:48→21:48)
[2017-01-06] MEDS: SODIUM CHLORIDE 0.9% FLUSH 10 ML FLUSH IV FLUSH SCH ×2 (08:48→21:00)
[2017-01-06] MEDS: amLODIPine BESYLATE 5 MG TAB PO SCH (08:48)
[2017-01-06] MEDS: PANTOPRAZOLE SOD 40 MG DELAYED RELEASE TAB PO SCH (08:48)
[2017-01-06] MEDS: VANCOMYCIN 500 MG VIAL (FOR ORAL USE ONLY) PO SCH ×4 (08:48→21:48)
[2017-01-06] MEDS: LISINOPRIL 20 MG TAB PO SCH (08:48)
[2017-01-06] MEDS: cloNIDine HCL 0.1 MG TAB PO PRN (08:48)
[2017-01-06] MEDS: ACETAMINOPHEN/HYDROcodone 325 MG/7.5 MG TAB PO PRN ×3 (08:53→21:52)
--- NOTE | 2017-01-06 10:04 | MB ---
cc: REFUGIO DIAZ D.O., HASSAN M.D. RATHBUN, MICHELLE S. MD DATE OF CONSULTATION: 01/05/[address] Lyn Artis. REASON FOR CONSULTATION Possible C. Difficile colitis. HISTORY OF PRESENT ILLNESS Mr. Adams is a 61-year-old gentleman who states he has had about three to four episodes of C-difficile colitis over the last [id number] years. His first episode was after a foot surgery then he had one a year later, then he presented to the emergency room last week. At that time he had some abdominal pain and loose stools, C-difficile toxin was positive. He was started on vancomycin. He states that over the last week he has been taking vancomycin with excellent response. He says he had no abdominal pain, he had no diarrhea, he felt well but then he was re-admitted again yesterday after an episode of abdominal pain which occurred after a long bike ride. He was found to be dehydrated and had lactic acidosis as well as metabolic acidosis. He is still not complaining of any diarrhea. His abdomen is soft and benign today. CT of the abdomen and pelvis does not reveal any colitis, but does show diverticulosis. REVIEW OF SYSTEMS Feels well. No abdominal pain, no diarrhea and no fever, chills today. PAST MEDICAL HISTORY 1. Hypertension. 2. History of alcohol use in the past. 3. History of DVTs. 4. History of diverticulitis. 5. Reflux. 6. Pancreatitis. 7. History of C-difficile infections in the past. PAST SURGICAL HISTORY 1. Surgery to the rectum. 2. Back surgery. 3. Neck surgery. 4. Foot surgeries. MEDICATIONS On admission: 1. Vancomycin. 2. Ultram. 3. Amlodipine. 4. Pantoprazole. 5. Alprazolam. 6. Lisinopril. ALLERGIES CODEINE, LEVAQUIN, FLAGYL, SULFAMETHOXAZOLE, AND BACTRIM. FAMILY HISTORY Noncontributory. SOCIAL HISTORY No tobacco, no alcohol at this time. PHYSICAL EXAMINATION GENERAL: A well-nourished man in no apparent distress. VITAL SIGNS: Vitals are stable. HEAD/NECK: Anicteric sclerae. CHEST: Bilateral air entry with rales. ABDOMEN: Abdomen is soft, nontender. No hepatosplenomegaly. Bowel sounds are present. ASSEMBLER MOVEMENT: Exam is nonfocal. RECTAL: Exam deferred at this time. LABORATORY DATA Labs reveal white cell count of 6.4, hemoglobin 9.5, creatinine 1.1. IMAGING STUDIES CT of the abdomen and pelvis reveals uncomplicated diverticulosis, no evidence of colitis. IMPRESSION Abdominal pain, possible C-difficile colitis. RECOMMENDATIONS Colonoscopy discussed with the patient. He is agreeable, this will be scheduled for tomorrow with magnesium citrate prep. This has been discussed with Dr. Artis. Further recommendations to follow after the above. For now continue vancomycin as ordered. Thank you for this referral. MD SHARON Rodriguez/LEXUS /2:17 PM /9:48 AM
[2017-01-06] MEDS ORDERED: amLODIPine BESYLATE 5 MG TAB PO ONE (10:30)
[2017-01-06 11:02] VITALS: BP 160/100; PULSE 56; RESP 16; TEMP 96.5; O2SAT 99
[2017-01-06] MEDS ORDERED: LACTATED RINGER'S 1000 ML INJ 1,000 ML ONE (11:31)
[2017-01-06] MEDS ORDERED: PROPOFOL 200 MG/20 ML AMP IV ONE (11:40)
--- NOTE | 2017-01-06 11:49 | GIPROC ---
[facility] [address] [place] [address], [id number] COLONOSCOPY PROCEDURE REPORT EXAM DATE: 01/06/2017 PATIENT NAME: Rahul Adams MR #: [id number] BIRTHDATE: 1955 ENDOSCOPIST: Elaine Walsh MD ORDER #: [id number] DIRECTOR FUNDS DEVELOPMENT: Josse Fuchs and Kelly Myers STATUS: inpatient INDICATIONS: The patient is a 61 yr old male here for a colonoscopy due to abdominal pain PROCEDURE PERFORMED: Colonoscopy with biopsy MEDICATIONS: None and Per Anesthesia. PREP QUALITY: good PREP TYPE:Magnesium Citrate ESTIMATED BLOOD LOSS: None CONSENT: The patient understands the risks and benefits of the procedure and understands that these risks include, but are not limited to: sedation, allergic reaction, infection, perforation and/or bleeding. Alternative means of evaluation and treatment include, among others: physical exam, x-rays, and/or surgical intervention. The patient elects to proceed with this endoscopic procedure. medical equipment was checked for proper function. Hand hygiene and appropriate measures for infection prevention was taken. After the risks, benefits and alternatives of the procedure were thoroughly explained, Informed consent was verified, confirmed and timeout was successfully executed by the treatment team. A digital exam revealed external hemorrhoids The Pentax [id number] endoscope was introduced through the anus and advanced to the cecum, which was identified by both the appendix and ileocecal valve. The instrument was then slowly withdrawn as the colon was fully examined. COLON FINDINGS: There was moderate diverticulosis noted in the sigmoid colon with associated muscular hypertrophy. The colonic mucosa appeared normal throughout the entire examined colon. Multiple random biopsies of the area were performed using cold forceps. Retroflexed views revealed internal hemorrhoids and Retroflexed views revealed medium internal hemorrhoids The scope was then completely withdrawn from the patient and the procedure terminated. ADVERSE EVENTS: There were no complications. IMPRESSIONS: 1. There was moderate diverticulosis noted in the sigmoid colon 2. The colonic mucosa appeared normal throughout the entire examined colon; multiple random biopsies of the area were performed using cold forceps 3. Retroflexed views revealed internal hemorrhoids 4. Retroflexed views revealed medium internal hemorrhoids 5. Revealed external hemorrhoids RECOMMENDATIONS: 1. Await biopsy results. Biopsy results will not be ready for 7-10 days. If you don't hear from us in two weeks, call our office for results. 2. Benefiber 2 tsp daily 3. Continue surveillance 4. Yearly hemoccult 5. No seeds, nuts and popcorn in diet RECALL: Return 5 years Colonoscopy, pending biopsy results Elaine Walsh MD eSigned: Elaine Walsh MD 01/06/2017 11:48 AM cc: Lyn Artis M.D. PATIENT NAME: Rahul Adams MR#: [id number]
[2017-01-06 16:00] VITALS: BP 119/89; PULSE 77; RESP 16; TEMP 97.4; O2SAT 98
[2017-01-06] MEDS: ENOXAPARIN SODIUM 40 MG/0.4 ML SYRINGE SQ SCH (17:25)
--- NOTE | 2017-01-06 18:56 | HHI.PR ---
Subjective Remarks Patient denies any further diarrhea still has some abdominal pain in the lower abdomen bp elevated earlier today - now better Objective Vitals Vital Signs Date Time Temp Pulse Resp B/P (MAP) Pulse Ox O2 Delivery O2 Flow Rate FiO2 01/06/17 17:23 18 01/06/17 16:00 97.4 77 16 119/89 (99) 98 01/06/17 12:08 61 16 170/85 (113) 98 01/06/17 11:55 97.8 63 16 94/73 (80) 97 01/06/17 11:02 96.5 56 16 160/100 (120) 99 01/06/17 08:00 97.6 69 20 176/104 (128) 97 01/06/17 04:00 98.9 77 16 140/100 (113) 100 01/06/17 00:00 96.5 56 17 164/100 (121) 99 01/05/17 20:00 61 01/05/17 20:00 97.1 60 16 168/96 (120) 99 I/O 01/05/17 01/05/17 01/05/17 01/06/17 01/06/17 01/06/17 07:00 15:00 23:00 07:00 15:00 23:00 Intake Total 960 ml 1380 ml 770 ml Output Total 750 ml Balance 210 ml 1380 ml 770 ml Intake Oral 960 ml 480 ml 540 ml IV Total 900 ml 30 ml Other 200 ml Output Urine Total 750 ml # Voids 5 3 3 # Bowel Movements 6 0 1 Result Diagram: 01/05/17 0755 01/05/17 0755 Imaging Last Impressions Abdomen/Pelvis CT 01/03/17 0000 Signed Impressions: Service Date/Time: Tuesday, January 03, 2017 18:59 - CONCLUSION: 1. Uncomplicated sigmoid diverticulosis. 2. No evidence of acute process. 3. Status post left hip replacement Francisco Cote MD Objective Remarks AAox3 nad Abdomen is soft, mildly tender to palpation of lower abdomen, no rebound or guarding clear lungs BL S1S2 RRR, no MRG no edema in lower extremities. Medications and IVs Current Medications Medications (Trade) Dose Ordered Sig/Quin Route Start Time Stop Time Status Last Admin (Narcan Inj) 0.4 mg UNSCH PRN IV 01/03/17 20:30 (Vitamin B1) 100 mg DAILY PO 01/04/17 09:00 01/06/17 08:47 (NS Flush) 2 ml BID IV FLUSH 01/03/17 21:00 01/06/17 08:48 (NS Flush) 2 ml UNSCH PRN IVF 01/03/17 20:30 (Protonix) 40 mg DAILY PO 01/04/17 10:00 01/06/17 08:48 (Catapres) 0.1 mg Q6H PRN PO 01/04/17 10:00 01/06/17 08:48 (Xanax) 0.5 mg BID PO 01/04/17 21:00 01/06/17 08:48 (Prinivil) 20 mg DAILY PO 01/05/17 09:00 01/06/17 08:48 (Lovenox Inj) 40 mg Q24H SQ 01/04/17 17:00 01/06/17 17:25 (VANCOMYCIN for oral use only) 125 mg QID PO 01/05/17 13:00 01/06/17 17:25 ([place] 7.5-325 Mg) 1 tab Q6H PRN PO 01/05/17 13:30 01/06/17 15:03 (Norvasc) 10 mg DAILY PO 01/07/17 09:00 A/P Problem List: (1) Lactic acid acidosis ICD Code: E87.2 - Acidosis (2) Severe dehydration ICD Code: E86.0 - Dehydration (3) Uncontrolled hypertension ICD Code: I10 - Essential (primary) hypertension Status: Acute (4) Acute renal failure ICD Code: N17.9 - Acute kidney failure, unspecified Status: Acute (5) C. difficile colitis ICD Code: A04.7 - Enterocolitis due to Clostridium difficile Status: Acute Assessment and Plan 1. C difficile colitis. Patient's fifth recurrence. Patient cannot tolerate Flagyl secondary to nausea. Patient started on vancomycin by mouth which I will continue. Patient seems to have rapidly improved and is not having any further loose stools. GI consulted, the patient is status post colonoscopy which showed internal hemorrhoids, diverticulosis and colitis. Continue pain control with Lortab. I will discuss with infectious disease the possibility of fecal transplant. Follow-up GI recommendations. 2. Severe lactic acidosis. Secondary to dehydration and colitis. Resolved after IV fluid administration. IV fluids discontinued. 3. Acute kidney injury. Due to dehydration and diarrhea. Improving after IV fluid administration. 4. Hypertension. The patient on Norvasc and lisinopril. However blood pressure very elevated today. Increase Norvasc dose to 10 mg by mouth daily. Continue to monitor vital signs. Continue clonidine when necessary. 5. History of alcohol abuse with withdrawal seizures. Denies any recent alcohol use. 6. GERD. Continue PPI. 7. DVT prophylaxis: Continue Lovenox. Toby Garcia MD Jan 06, 2017 18:56
[2017-01-06 20:00] VITALS: BP 159/97; PULSE 64; PULSE 76; RESP 20; TEMP 96.2; O2SAT 99
[2017-01-07] VITALS (7 sets, daily range): BP systolic 156–175; BP diastolic 90–104; PULSE 64–97; RESP 17–22; TEMP 97.4–98.5; O2SAT 97–98
[2017-01-07] MEDS: LISINOPRIL 20 MG TAB PO SCH (09:44)
[2017-01-07] MEDS: SODIUM CHLORIDE 0.9% FLUSH 10 ML FLUSH IV FLUSH SCH (09:44)
[2017-01-07] MEDS: PANTOPRAZOLE SOD 40 MG DELAYED RELEASE TAB PO SCH (09:44)
[2017-01-07] MEDS: ALPRAZolam 0.5 MG TAB PO SCH (09:45)
[2017-01-07] MEDS: VANCOMYCIN 500 MG VIAL (FOR ORAL USE ONLY) PO SCH ×2 (09:45→12:06)
[2017-01-07] MEDS: THIAMINE HCL 100 MG TAB PO SCH (09:45)
[2017-01-07] MEDS: ACETAMINOPHEN/HYDROcodone 325 MG/7.5 MG TAB PO PRN ×2 (10:02→15:44)
[2017-01-07] MEDS ORDERED: DOXAZOSIN MESYLATE 2 MG TAB PO SCH (11:30)
--- NOTE | 2017-01-07 14:36 | HHI.GIFU ---
Subjective Remarks Patient laying in bed comfortably, less diarrhea today, no abdominal pain. He overall feels better Objective Vitals I&O Vital Signs Date Time Temp Pulse Resp B/P (MAP) Pulse Ox O2 Delivery O2 Flow Rate FiO2 01/07/17 14:19 97.4 68 17 01/07/17 14:16 64 01/07/17 12:00 98.2 73 20 157/96 (116) 98 01/07/17 11:02 17 01/07/17 08:00 97.4 65 20 164/103 (123) 97 01/07/17 04:00 98.5 73 20 158/90 (112) 98 Automatic Cuff 01/07/17 00:00 98.1 68 20 175/104 (127) 97 01/06/17 20:00 64 01/06/17 20:00 96.2 76 20 159/97 (117) 99 Manual Cuff/Auscultation Automatic Cuff 01/06/17 16:00 97.4 77 16 119/89 (99) 98 I/O 01/06/17 01/06/17 01/06/17 01/07/17 01/07/17 01/07/17 07:00 15:00 23:00 07:00 15:00 23:00 Intake Total 770 ml 740 ml 360 ml Balance 770 ml 740 ml 360 ml Intake Oral 540 ml 740 ml 360 ml IV Total 30 ml Other 200 ml # Voids 3 3 3 3 # Bowel Movements 0 1 1 0 Laboratory Date/Time Source Procedure Growth Status 01/03/17 17:37 Blood Peripheral Aerobic Blood Culture - Preliminary NO GROWTH IN 4 DAYS Resulted 01/03/17 17:37 Blood Peripheral Anaerobic Blood Culture - Preliminary NO GROWTH IN 4 DAYS Resulted Physical Exam HEENT: Pupils round and reactive to light; normocephalic; atraumatic; no jaundice. Throat is clear. NECK: Neck is supple, no JVD, no lymphadenopathy. CHEST: Chest is clear to auscultation and percussion. CARDIAC: Regular rate and rhythm with no murmur gallop or rubs. ABDOMEN: Soft, nondistended, nontender; no hepatosplenomegaly; bowel sounds are present in all four quadrants. EXTREMITIES: No clubbing, cyanosis, or edema. SKIN: Normal; no rash; no jaundice. [employer]: No focal deficits; alert and oriented times three. Assessment and Plan Plan Multiple episode of C. difficile, patient came with recurrent diarrhea was started on vancomycin he is doing okay now less bowel movements Recommendation Continue vancomycin Consider clinical trial for bacterial transplant, patient is very interested, I will review the records and make sure that he fit the criteria Okay to feed patient Harrison Corona MD Jan 07, 2017 14:36
--- NOTE | 2017-01-07 14:37 | HHI.PR ---
Subjective Remarks Deferred entry - patient seen at 11:20 am Patient denies further diarrhea denies headache, dizziness bp noted to be very elevated with an sbp into the 160's denies nausea or vomiting Objective Vitals Vital Signs Date Time Temp Pulse Resp B/P (MAP) Pulse Ox O2 Delivery O2 Flow Rate FiO2 01/07/17 14:19 97.4 68 17 01/07/17 14:16 64 01/07/17 12:00 98.2 73 20 157/96 (116) 98 01/07/17 11:02 17 01/07/17 08:00 97.4 65 20 164/103 (123) 97 01/07/17 04:00 98.5 73 20 158/90 (112) 98 Automatic Cuff 01/07/17 00:00 98.1 68 20 175/104 (127) 97 01/06/17 20:00 64 01/06/17 20:00 96.2 76 20 159/97 (117) 99 Manual Cuff/Auscultation Automatic Cuff 01/06/17 16:00 97.4 77 16 119/89 (99) 98 I/O 01/06/17 01/06/17 01/06/17 01/07/17 01/07/17 01/07/17 07:00 15:00 23:00 07:00 15:00 23:00 Intake Total 770 ml 740 ml 360 ml Balance 770 ml 740 ml 360 ml Intake Oral 540 ml 740 ml 360 ml IV Total 30 ml Other 200 ml # Voids 3 3 3 3 # Bowel Movements 0 1 1 0 Result Diagram: 01/05/17 0755 01/05/17 0755 Imaging Last Impressions Abdomen/Pelvis CT 01/03/17 0000 Signed Impressions: Service Date/Time: Tuesday, January 03, 2017 18:59 - CONCLUSION: 1. Uncomplicated sigmoid diverticulosis. 2. No evidence of acute process. 3. Status post left hip replacement Francisco Cote MD Objective Remarks AAox3 nad Abdomen is soft, mildly tender to palpation of lower abdomen, no rebound or guarding clear lungs BL S1S2 RRR, no MRG no edema in lower extremities. Medications and IVs Current Medications Medications (Trade) Dose Ordered Sig/Quin Route Start Time Stop Time Status Last Admin (Narcan Inj) 0.4 mg UNSCH PRN IV 01/03/17 20:30 (Vitamin B1) 100 mg DAILY PO 01/04/17 09:00 01/07/17 09:45 (NS Flush) 2 ml BID IV FLUSH 01/03/17 21:00 01/07/17 09:44 (NS Flush) 2 ml UNSCH PRN IVF 01/03/17 20:30 (Protonix) 40 mg DAILY PO 01/04/17 10:00 01/07/17 09:44 (Catapres) 0.1 mg Q6H PRN PO 01/04/17 10:00 01/06/17 08:48 (Xanax) 0.5 mg BID PO 01/04/17 21:00 01/07/17 09:45 (Prinivil) 20 mg DAILY PO 01/05/17 09:00 01/07/17 09:44 (Lovenox Inj) 40 mg Q24H SQ 01/04/17 17:00 01/06/17 17:25 (VANCOMYCIN for oral use only) 125 mg QID PO 01/05/17 13:00 01/07/17 12:06 ([place] 7.5-325 Mg) 1 tab Q6H PRN PO 01/05/17 13:30 01/07/17 10:02 (Norvasc) 10 mg DAILY PO 01/07/17 09:00 01/07/17 09:46 (Cardura) 2 mg DAILY PO 01/07/17 11:30 01/07/17 12:06 Urinary Catheter: No Vascular Central Line Catheter: No A/P Problem List: (1) Lactic acid acidosis ICD Code: E87.2 - Acidosis (2) Severe dehydration ICD Code: E86.0 - Dehydration (3) Uncontrolled hypertension ICD Code: I10 - Essential (primary) hypertension Status: Acute (4) Acute renal failure ICD Code: N17.9 - Acute kidney failure, unspecified Status: Acute (5) C. difficile colitis ICD Code: A04.7 - Enterocolitis due to Clostridium difficile Status: Acute Assessment and Plan 1. C difficile colitis. Patient's fifth recurrence. Patient cannot tolerate Flagyl secondary to nausea. Patient started on vancomycin by mouth which I will continue. Patient seems to have rapidly improved and is not having any further loose stools. GI consulted, the patient is status post colonoscopy which showed internal hemorrhoids, diverticulosis and colitis. Continue pain control with Lortab. 01/07 Discussed the case with Dr Barbosa from GI. Patient cleared to be discharge by GI. Patient will follow up as an outpatient with gastroenterology for fecal transplant. 2. Severe lactic acidosis. Secondary to dehydration and colitis. Resolved after IV fluid administration. IV fluids discontinued. 3. Acute kidney injury. Due to dehydration and diarrhea. Improving after IV fluid administration. 4. Hypertension. The patient on Norvasc and lisinopril. However blood pressure very elevated today. Increase Norvasc dose to 10 mg by mouth daily. Continue to monitor vital signs. Continue clonidine when necessary. 01/07 BP severely uncontrolled - Will continue BP medications and start the patient in Cardura 2 mg po daily. 5. History of alcohol abuse with withdrawal seizures. Denies any recent alcohol use. 6. GERD. Continue PPI. 7. DVT prophylaxis: Continue Lovenox. Discharge Planning Will DC patient once bp goes belo sbp 150. Toby Garcia MD Jan 07, 2017 14:37
[2017-01-07] MEDS ORDERED: LACTOBACILLUS ACIDOPHILUS 1 GM PACKET PO SCH (18:00)
[2017-01-07] MEDS ORDERED: HYDR-3580 PO (19:39)
--- NOTE | 2017-01-07 19:42 | HHI.DS ---
Discharge Summary Admission Date Jan 03, 2017 at 20:25 Discharge Date: Jan 07, 2017 Admitting Diagnosis Generalized weakness; C diff w/ dehydration; alcohol W/D (1) Lactic acid acidosis ICD Code: E87.2 - Acidosis Diagnosis: Principal (2) Severe dehydration ICD Code: E86.0 - Dehydration Diagnosis: Principal (3) Uncontrolled hypertension ICD Code: I10 - Essential (primary) hypertension Diagnosis: Principal Status: Acute (4) Acute renal failure ICD Code: N17.9 - Acute kidney failure, unspecified Diagnosis: Principal Status: Acute (5) C. difficile colitis ICD Code: A04.7 - Enterocolitis due to Clostridium difficile Diagnosis: Principal Status: Acute Procedures SP colonoscopy with biopsy on 01/06 which found internal hemorrhoids, Diverticulosis, no signs of colitis. Brief History - From Admission This is a 61 year-old male known to me from previous admissions who presents to the ER with generalized weakness and chills. He has a history of pancreatitis and recurrent C. difficile colitis. The patient was seen in the emergency department on December 28 for dehydration at that time C. difficile was positive. The patient has been on by mouth vancomycin. He states that he is only had 3 loose stool several days ago and none since. Yesterday he rode his bike about 5 miles and started to feel dehydrated. He went home and took a shower and then afterwards had shaking chills. He also has diffuse abdominal pain. Because of this he returned to the ER for evaluation. The patient endorses nausea but denies vomiting. Denies blood in the stool. He states he has been taking the vancomycin. He denies alcohol use. In the emergency department his lactic acid initially was 6.1 and he had metabolic acidosis with creatinine of 1.8. He was given IV fluids and lactate this morning is 1 with stable/elevated blood pressures. Patient states he's feeling better today. CBC/BMP: 01/05/17 0755 01/05/17 0755 Significant Findings Laboratory Tests Test 01/05/17 07:55 Red Blood Count 3.21 MIL/MM3 (4.50-5.90) Hemoglobin 9.5 GM/DL (13.0-17.0) Hematocrit 28.5 % (39.0-51.0) Red Cell Distribution Width 18.1 % (11.6-17.2) Monocytes (%) (Auto) 15.4 % (0.0-8.0) Monocytes # (Auto) 1.0 TH/MM3 (0-0.9) Calcium Level 8.0 MG/DL (8.5-10.1) Estimat Glomerular Filtration Rate 68 ML/MIN (>89) Imaging Last Impressions Abdomen/Pelvis CT 01/03/17 0000 Signed Impressions: Service Date/Time: Tuesday, January 03, 2017 18:59 - CONCLUSION: 1. Uncomplicated sigmoid diverticulosis. 2. No evidence of acute process. 3. Status post left hip replacement Francisco Cote MD PE at Discharge AAox3 nad Abdomen is soft, mildly tender to palpation of lower abdomen, no rebound or guarding clear lungs BL S1S2 RRR, no MRG no edema in lower extremities. Pt update on day of discharge Denies abdominal pain, tolerating diet, denies nausea or vomiting. Hospital Course 1. C difficile colitis. Patient's fifth recurrence. Patient cannot tolerate Flagyl secondary to nausea. Patient started and treated with oral Vancomycin. Diarrhea improved. GI consulted, the patient is status post colonoscopy which showed internal hemorrhoids, diverticulosis and colitis. Continue pain control with Lortab. 01/07 Discussed the case with Dr Barbosa from GI. Patient cleared to be discharge by GI. Patient will follow up as an outpatient with gastroenterology for fecal transplant. 2. Severe lactic acidosis. Secondary to dehydration and colitis. Resolved after IV fluid administration. IV fluids discontinued. 3. Acute kidney injury. Due to dehydration and diarrhea. Improving after IV fluid administration. 4. Hypertension. The patient on Norvasc and lisinopril. However blood pressure very elevated today. Increase Norvasc dose to 10 mg by mouth daily. Continue to monitor vital signs. Continue clonidine when necessary. Due to uncontrolled BP patient was started on Cardura 2 mg po daily which controlled BP. 5. History of alcohol abuse with withdrawal seizures. Patint denies recent use. Did not show evidence of acute withdrawal. 6. GERD. Continue PPI. 7. DVT prophylaxis: Continue Lovenox. Pt Condition on Discharge: Stable Discharge Disposition: Discharge Home Discharge Time: > 30 minutes Discharge Instructions DIET: Follow Instructions for: Heart Healthy Diet Activities you can perform: Regular-No Restrictions Follow up Referrals: Gastroenterology - 2 Weeks with Harrison Corona MD PCP Follow-up PCP Follow-up - 2 Weeks New Medications: Vancomycin (Vancomycin) 125 Mg Cap 125 MG PO DIRECTED for Infection for 50 Days, CAP 0 Refills 125 mg po 4x daily x 14 days, then 125 mg po 2x daily x 7 days then,125 mg po 1x daily x 7 days, then 125 mg po every other day x 8 days (4 doses), then 125 mg po every 3 days x 2 weeks (5 doses) Hydrocodone-Acetaminophen (Hydrocodone-Acetaminophen) 7.5-325 mg Tab 1 TAB PO Q6H PRN for PAIN SCALE 1 TO 10, #20 TAB Continued Medications: Alprazolam (Alprazolam) 0.5 Mg Tab 0.5 MG PO BID for ANXIETY, TAB 0 Refills Amlodipine (Amlodipine) 5 Mg Tab 5 MG PO DAILY for Blood Pressure Management, #30 TAB 0 Refills Lisinopril (Lisinopril) 20 Mg Tab 20 MG PO DAILY, #30 TAB 0 Refills Pantoprazole (Pantoprazole) 40 Mg Tab 40 MG PO DAILY for Reflux, #30 TAB 0 Refills Tramadol (Ultram) 50 Mg Tab 50 MG PO Q4H PRN for PAIN, #10 TAB 0 Refills Discontinued Medications: Vancomycin (Vancomycin) 250 Mg Cap 250 MG PO QID for Infection, CAP 0 Refills Toby Garcia MD Jan 07, 2017 19:42
[2017-01-08] MEDS ORDERED: LACTPOW68 PO (09:22)
--- NOTE | 2017-01-08 10:23 | HHI.PR ---
Addendum to Inpatient Note Addendum Reason: Additional Documentation Additional Information After having discussions with the nurses and medical staff that was here last night. It was noted that the patient walked out of the hospital and left AMA. The nurse, who is a new nurse did not modify anyone or me of the patient leaving AGAINST MEDICAL ADVICE. The patient has been calling being very rude to medical staff and demanding prescriptions for pain medication and lactobacillus acidophilus which were written by me since as stated in my note he was going to be discharged after the blood pressure was controlled. Toby Garcia MD Jan 08, 2017 10:23
[2017-02-12] MEDS ORDERED: ZIRG0.15 LEFT EYE (10:21)
== END 2017-01-07 16:30 | disposition left against medical advice (07) | DRG 372 ==
LOC: PHED 16:52 → PHEDA 20:25 → PH3A 01-04 03:17
PROVIDERS: ADMIT Hospitalist; ATTEND Hospitalist
PROC: 0DBN8ZX Excision of Sigmoid Colon, Via Natural or Artificial Opening Endoscopic, Diagnostic (ICD-10-PCS; principal; 2017-01-06 11:35)
DX: A04.7 Enterocolitis due to Clostridium difficile (principal); N17.9 Acute kidney failure, unspecified; E87.2 Acidosis; N18.2 Chronic kidney disease, stage 2 (mild); I12.9 Hypertensive chronic kidney disease with stage 1 through stage 4 chronic kidney disease, or unspecified chronic kidney disease; K21.9 Gastro-esophageal reflux disease without esophagitis; H91.92 Unspecified hearing loss, left ear; M19.012 Primary osteoarthritis, left shoulder; M19.011 Primary osteoarthritis, right shoulder; K57.30 Diverticulosis of large intestine without perforation or abscess without bleeding; E86.0 Dehydration; K64.8 Other hemorrhoids; K64.4 Residual hemorrhoidal skin tags; Z86.718 Personal history of other venous thrombosis and embolism; Z88.1 Allergy status to other antibiotic agents; Z96.642 Presence of left artificial hip joint
CPT/HCPCS: 74176; 80048; 80053; 80307; 81001; 82140; 83605; 83690; 83735; 85025; 87040; 88305; 96361; 96365; 96375; J0692; J1170; J1650; J2060; J2270; J2405; J3370; J3411; J3475; J7030; J7050; J7120

== ENCOUNTER 2017-01-22 15:21 | Emergency (ER) | payer BC ==
[~2017-01-22] VITALS: Ht 175.3 cm; Wt 67.0 kg
[~2017-01-22 15:21] MED LIST changes: +HYDR-3580 PO; +LACTPOW68 PO; +VANC125C3 PO; -ZOFR4TAB3 SL
[2017-01-22 15:28] VITALS: BP 165/99; PULSE 128; RESP 16; TEMP 98.6; O2SAT 99
[2017-01-22] MEDS ORDERED: SODIUM CHLOR 0.9% 1000 ML INJ 1,000 ML IV SCH (16:03)
--- NOTE | 2017-01-22 16:11 | PD ---
HPI Chief Complaint: GI Complaint Time Seen by Provider: 15:59 Travel History International Travel<30 days: No Contact w/Intl Traveler<30days: No Traveled to known affect area: No History of Present Illness HPI Patient is a 61-year-old male who presents to emergency room complaints of abdominal pain. he reports that he has been treated with vancomycin for C. difficile for the past few months, reports that yesterday he had 2 bouts of "thick mushy diarrhea." Patient reports that this morning he had an episode of emesis. Patient reports that he is having crampy lower abdominal pain, patient concerned that he may have a have C. difficile colitis versus diverticulitis. Patient denies any bloody stools, denies any fevers or chills. 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 ) Asthma: No Autoimmune Disease: No Anxiety: Yes Depression: No Heart Rhythm Problems: No Cancer: No Cardiovascular Problems: Yes (HTN) High Cholesterol: No Chemotherapy: No Chest Pain: No Congestive Heart Failure: No COPD: No Cerebrovascular Accident: No Diabetes: No Diminished Hearing: Yes (L ear ) Diverticulitis: Yes Endocrine: No Gastrointestinal Disorders: Yes (COLONOSCOPY JANUARY 2014) GERD: Yes Genitourinary: No Headaches: No Hiatal Hernia: No Heparin Induced Thrombocytopen: No Hypertension: Yes Immune Disorder: No Implanted Vascular Access Dvce: Yes Kidney Stones: No Musculoskeletal: Yes Neurologic: Yes Psychiatric: Yes Reproductive: No Respiratory: No Immunizations Current: Yes Migraines: No Pancreatitis: Yes Radiation Therapy: No Renal Failure: No Seizures: Yes (IN PAST R/T ALCOHOL WITHDRAWAL 2013) Sickle Cell Disease: No Sleep Apnea: No Thyroid Disease: No Ulcer: No PNEUMOCCOCAL Vaccine (Year): 2 Past Surgical History Abdominal Surgery: No AICD: No Arteriovenous Shunt: No Body Medical Devices: DISSOLVABLE SCREW IN LEFT ANKLE - placed 2014 Cardiac Surgery: No Ear Surgery: No Endocrine Surgery: No Eye Surgery: No Genitourinary Surgery: No Gynecologic Surgery: No Hysterectomy: No Insulin Pump: No Joint Replacement: Yes (L FEMUR BONE 06/2015) Neurologic Surgery: No Oral Surgery: No Pacemaker: No Thoracic Surgery: No Other Surgery: Yes (2 BACK AND ONE NECK SURGERIES-microdiskectomy,left achilles tendon repair) Social History Alcohol Use: Yes (3 TOv4 times a week, states rum) Tobacco Use: No Substance Use: Yes ([facility] smokes mariswapnaana Q3DAYS) Allergies-Medications (Allergen,Severity, Reaction): Coded Allergies: codeine (Unverified Allergy, Severe, RASH, 01/22/17) levofloxacin (Unverified Allergy, Severe, ACHILLES TENDON PROBLEM, 01/22/17 ) metronidazole (Unverified Allergy, Severe, 01/22/17) sulfamethoxazole (Unverified Allergy, Severe, Diarrhea, 01/22/17) trimethoprim (Unverified Allergy, Severe, Diarrhea, 01/22/17) Reported Meds & Prescriptions Reported Meds & Active Scripts Active Lactobacillus Acidophilus 1 Pkt 1 Pkt PO TID Vancomycin (Vancomycin HCl) 125 Mg Cap 125 Mg PO DIRECTED 50 Days 125 mg po 4x daily x 14 days, then 125 mg po 2x daily x 7 days then,125 mg po 1x daily x 7 days, then 125 mg po every other day x 8 days (4 doses), then 125 mg po every 3 days x 2 weeks (5 doses) Reported Amlodipine (Amlodipine Besylate) 5 Mg Tab 5 Mg PO DAILY Pantoprazole (Pantoprazole Sodium) 40 Mg Tab 40 Mg PO DAILY Alprazolam 0.5 Mg Tab 0.5 Mg PO BID Lisinopril 20 Mg Tab 20 Mg PO DAILY Review of Systems General / Constitutional: No: Fever, Chills Eyes: No: Visual changes HENT: No: Headaches Cardiovascular: No: Chest Pain or Discomfort Respiratory: No: Shortness of Breath Gastrointestinal: Positive: Nausea, Vomiting, Diarrhea, Abdominal Pain, No: Hematochezia, Constipation Genitourinary: No: Dysuria Musculoskeletal: No: Pain Skin: No Rash Neurologic: No: Weakness Psychiatric: No: Depression Endocrine: No: Polydipsia Hematologic/Lymphatic: No: Easy Bruising Physical Exam Narrative GENERAL: Mild distress SKIN: Focused skin assessment warm/dry. HEAD: Atraumatic. Normocephalic. EYES: Pupils equal and round. No scleral icterus. No injection or drainage. ENT: No nasal bleeding or discharge. Mucous membranes pink and moist. NECK: Trachea midline. No JVD. CARDIOVASCULAR: Regular rate and rhythm. No murmur appreciated. RESPIRATORY: No accessory muscle use. Clear to auscultation. Breath sounds equal bilaterally. GASTROINTESTINAL: Abdomen soft, mildly-tender to lower abdomen, nondistended. Hepatic and splenic margins not palpable. MUSCULOSKELETAL: No obvious deformities. No clubbing. No cyanosis. No edema. NEUROLOGICAL: Awake and alert. No obvious cranial nerve deficits. Motor grossly within normal limits. Normal speech. PSYCHIATRIC: Appropriate mood and affect; insight and judgment normal. Data Data Last Documented VS Vital Signs Date Time Temp Pulse Resp B/P (MAP) Pulse Ox O2 Delivery O2 Flow Rate FiO2 01/22/17 17:15 84 16 162/94 (116) 97 Room Air 01/22/17 15:28 98.6 Orders Orders Complete Blood Count With Diff (01/22/17 16:03) Comprehensive Metabolic Panel (01/22/17 16:03) Lipase (01/22/17 16:03) Prothrombin Time / Inr (Pt) (01/22/17 16:03) Act Partial Throm Time (Ptt) (01/22/17 16:03) Urinalysis - C+S If Indicated (01/22/17 16:03) Iv Access Insert/Monitor (01/22/17 16:03) Oximetry (01/22/17 16:03) Sodium Chlor 0.9% 1000 Ml Inj (Ns 1000 M (01/22/17 16:03) Sodium Chloride 0.9% Flush (Ns Flush) (01/22/17 16:15) C Diff Toxin Pcr (01/22/17 16:03) Ct Abd/Pel W/O Iv Contrast (01/22/17 16:44) Sodium Chlor 0.9% 1000 Ml Inj (Ns 1000 M (01/22/17 17:45) Labs Laboratory Tests Test 01/22/17 16:12 01/22/17 17:00 White Blood Count 9.6 TH/MM3 Red Blood Count 3.87 MIL/MM3 Hemoglobin 11.0 GM/DL Hematocrit 33.1 % Mean Corpuscular Volume 85.6 FL Mean Corpuscular Hemoglobin 28.4 PG Mean Corpuscular Hemoglobin Concent 33.2 % Red Cell Distribution Width 17.1 % Platelet Count 308 TH/MM3 Mean Platelet Volume 8.1 FL Neutrophils (%) (Auto) 70.2 % Lymphocytes (%) (Auto) 16.8 % Monocytes (%) (Auto) 9.6 % Eosinophils (%) (Auto) 0.6 % Basophils (%) (Auto) 2.8 % Neutrophils # (Auto) 6.7 TH/MM3 Lymphocytes # (Auto) 1.6 TH/MM3 Monocytes # (Auto) 0.9 TH/MM3 Eosinophils # (Auto) 0.1 TH/MM3 Basophils # (Auto) 0.3 TH/MM3 CBC Comment DIFF FINAL Differential Comment Prothrombin Time 10.2 SEC Prothromb Time International Ratio 0.9 RATIO Activated Partial Thromboplast Time 28.7 SEC Blood Urea Nitrogen 24 MG/DL Creatinine 1.80 MG/DL Random Glucose 122 MG/DL Total Protein 8.3 GM/DL Albumin 4.0 GM/DL Calcium Level 8.8 MG/DL Alkaline Phosphatase 63 U/L Aspartate Amino Transf (AST/SGOT) 23 U/L Alanine Aminotransferase (ALT/SGPT) 17 U/L Total Bilirubin 0.6 MG/DL Sodium Level 131 MEQ/L Potassium Level 4.4 MEQ/L Chloride Level 97 MEQ/L Carbon Dioxide Level 21.6 MEQ/L Anion Gap 12 MEQ/L Estimat Glomerular Filtration Rate 38 ML/MIN Lipase 193 U/L Urine Color YELLOW Urine Turbidity CLEAR Urine pH 6.0 Urine Specific [place] 1.015 Urine Protein TRACE mg/dL Urine Glucose (UA) NEG mg/dL Urine Ketones TRACE mg/dL Urine Occult Blood NEG Urine Nitrite NEG Urine Bilirubin NEG Urine Leukocyte Esterase NEG Urine WBC 0-2 /hpf Urine Squamous Epithelial Cells 0-5 /hpf Microscopic Urinalysis Comment CULT NOT INDICATED MDM Medical Decision Making Medical Screen Exam Complete: Yes Emergency Medical Condition: Yes Medical Record Reviewed: Yes Interpretation(s) Vital Signs Date Time Temp Pulse Resp B/P (MAP) Pulse Ox O2 Delivery O2 Flow Rate FiO2 01/22/17 16:17 96 01/22/17 15:41 16 01/22/17 15:28 98.6 128 16 165/99 (121) 99 Differential Diagnosis Differential includes diverticulitis, C. difficile colitis, electrolyte abnormality Narrative Course 61-year-old male presents to emergency room complaints of possible diverticulitis versus C. difficile colitis. Patient is currently being treated with vancomycin for C. difficile, reports that since yesterday, he has been having "muschy" stools x 2 and did have an episode of nausea and vomiting this morning. IV line was established upon presentation to ER. Lab work obtained. IV fluids as well as antiemetics ordered. CT of the abdomen and pelvis with IV contrast ordered to evaluate for possible colitis. C. difficile cultures ordered. Previous medical records reviewed, patient was admitted to the hospital on January 03, 2017 for C. difficile colitis with dehydration, he was recently discharged on January 07 with oral vancomycin. CBC & BMP Diagram 01/22/17 16:12 Total Protein 8.3 H, Albumin 4.0, Calcium Level 8.8, Alkaline Phosphatase 63, Aspartate Amino Transf (AST/SGOT) 23, Alanine Aminotransferase (ALT/SGPT) 17, Total Bilirubin 0.6 BUN/creatinine elevated today at 24/0.80, BUN creatinine on January 05, 2017 was 13/1.10 - CT with IV contrast was changed to CT without IV contrast given renal function. IV fluids ordered for patient. Last Impressions Abdomen/Pelvis CT 01/22/17 1644 Signed Impressions: Service Date/Time: Sunday, January 22, 2017 16:56 - CONCLUSION: 1. There are scattered diverticuli throughout the sigmoid colon but no active inflammatory changes are identified. 2. Stable compared to prior examination. Damion Mendes MD CT as well as lab work reviewed patient. Patient will follow-up with all cultures from today. Patient will follow-up with his primary care doctor, signs and symptoms of when to return to emergency room was reviewed patient in detail. A copy of his lab work and studies were given to him at discharge. Patient feeling much better at this time, he is unable to give stool sample. Diagnosis Primary Impression: Abdominal pain Additional Impression: Dehydration Patient Instructions: General Instructions Additional Instructions: Please provide patient with a copy of his lab work and studies at discharge Please follow-up with your primary care doctor Return to the emergency room as needed Return to the emergency room if symptoms worsen or progress Please take all antibiotics as prescribed Please drink plenty of fluids. Disposition: 01 DISCHARGE HOME Condition: Stable BrookeOmayra DO Jan 22, 2017 16:11
[2017-01-22] MEDS ORDERED: SODIUM CHLORIDE 0.9% FLUSH 10 ML FLUSH IV FLUSH PRN (16:15)
[2017-01-22 16:17] VITALS: O2SAT 96
[2017-01-22 16:19] LABS: AUTOMATED NEUTROPHIL # 6.7 TH/MM3 (1.8-7.7); BASOPHIL # 0.3 TH/MM3 (0-0.2); BASOPHIL % 2.8 % (0.0-2.0); EOSINOPHIL # 0.1 TH/MM3 (0-0.4); EOSINOPHIL % 0.6 % (0.0-4.0); HEMATOCRIT 33.1 % (39.0-51.0); HEMO FLAGS DIFF FINAL; LYMPH % 16.8 % (9.0-44.0); LYMPHOCYTE # 1.6 TH/MM3 (1.0-4.8); MEAN CELL VOLUME 85.6 FL (80.0-100.0); MEAN CORPUSCULAR HEMOGLOBIN 28.4 PG (27.0-34.0); MEAN CORPUSCULAR HGB CONC 33.2 % (32.0-36.0); MONO % 9.6 % (0.0-8.0); NEUT % 70.2 % (16.0-70.0); PLATELET COUNT 308 TH/MM3 (150-450); RED BLOOD COUNT 3.87 MIL/MM3 (4.50-5.90); RED CELL DISTRIBUTION WIDTH 17.1 % (11.6-17.2); WHITE BLOOD COUNT 9.6 TH/MM3 (4.0-11.0)
[2017-01-22 16:29] LABS: CHLORIDE 97 MEQ/L (98-107); POTASSIUM 4.4 MEQ/L (3.5-5.1); SODIUM (NA) 131 MEQ/L (136-145)
[2017-01-22 16:32] LABS: ANION GAP 12 MEQ/L (5-15); BICARBONATE 21.6 MEQ/L (21.0-32.0)
[2017-01-22 16:33] LABS: APTT (PATIENT) 28.7 SEC (24.3-30.1); BLOOD UREA NITROGEN 24 MG/DL (7-18); INTERNATIONAL NORMALIZED RATIO 0.9 RATIO; PROTHROMBIN TIME - PATIENT 10.2 SEC (9.8-11.6)
[2017-01-22 16:35] LABS: ALT (GPT) 17 U/L (12-78); AST (GOT) 23 U/L (15-37); GLOMERULAR FILTRATION RATE 38 ML/MIN (>89)
[2017-01-22 16:37] LABS: TOTAL BILIRUBIN ADULT 0.6 MG/DL (0.2-1.0)
[2017-01-22 16:38] LABS: ALKALINE PHOSPHATASE 63 U/L (45-117)
[2017-01-22 17:11] LABS: BLOOD, URINE NEG (NEG); GLUCOSE,URINE NEG (NEG); KETONE, URINE TRACE mg/dL (NEG); NITRITE,URINE NEG (NEG)
[2017-01-22 17:15] VITALS: BP 162/94; PULSE 84; RESP 16; O2SAT 97
[2017-01-22 17:24] LABS: URINE COLOR YELLOW (YELLW/STRAW)
[2017-01-22 17:25] LABS: COMMENT (UR) CULT NOT INDICATED; CULTURE IF INDICATED CULT NOT INDICATED; SQUAMOUS EPITHELIAL CELL URINE 0-5 /hpf (0-5); WBC, URINE 0-2 /hpf (0-5)
--- NOTE | 2017-01-22 17:26 | RADRPT ---
EXAM DATE/TIME: 01/22/2017 16:56 [facility] COMPARISON: CT ABDOMEN & PELVIS W/O CONTRAST, January 03, 2017, 18:59. INDICATIONS : Lower abdominal pain x 2 days. ORAL CONTRAST: No oral contrast ingested. RADIATION DOSE: 7.85 CTDIvol (mGy) MEDICAL HISTORY : Gastroesophageal reflux disease. Diverticulosis. Pancreatitis. SURGICAL HISTORY : None. ENCOUNTER: Initial ACUITY: 2 days PAIN SCALE: 8/10 LOCATION: Left lower quadrant TECHNIQUE: Volumetric scanning of the abdomen and pelvis was performed. Using automated exposure control and ad justment of the mA and/or kV according to patient size, radiation dose was kept as low as reasonably achievable to obtain optimal diagnostic quality images. DICOM format image data is available electro nically for review and comparison. FINDINGS: Imaging through the lung bases demonstrate COPD changes. There is a smaller atelectasis in the anteri or aspect of the left lower lobe. This is similar to previous exam. The appearance of the liver, spleen, pancreas, adrenal glands and kidneys is within normal limits. There is no significant retroperitoneal adenopathy. The abdominal aorta is normal in caliber. The vis ualized loops of small and large bowel in the upper abdomen are unremarkable. There is no fluid within the pelvis. There are some scattered diverticuli in the sigmoid colon but no definite inflammatory changes. The pelvis is partially obscured from the patient's left hip arthropl asty. The visualized osseous structures demonstrate degenerative changes throughout the lumbar spine. There are postsurgical changes within the left hip. CONCLUSION: 1. There are scattered diverticuli throughout the sigmoid colon but no active inflammatory changes ar e identified. 2. Stable compared to prior examination. Damion Mendes MD on January 22, 2017 at 17:18 Board Certified Radiologist. This report was verified electronically.
[2017-01-22] MEDS ORDERED: SODIUM CHLOR 0.9% 1000 ML INJ 1,000 ML IV ONE (17:45)
[2017-01-22 19:03] VITALS: BP 154/99
[2017-02-12] MEDS ORDERED: ZIRG0.15 LEFT EYE (10:21)
== END 2017-01-22 19:09 | disposition home or self-care (01) ==
LOC: PHED 15:21
DX: R10.9 Unspecified abdominal pain (principal); E86.0 Dehydration; I10 Essential (primary) hypertension; K85.90 Acute pancreatitis without necrosis or infection, unspecified
CPT/HCPCS: 74176; 80053; 81001; 83690; 85025; 85610; 85730; 96360; 96361; 99285; J7030

== ENCOUNTER 2017-02-06 18:39 | Emergency (ER) | payer BC ==
[~2017-02-06] VITALS: Ht 175.3 cm; Wt 65.0 kg
[~2017-02-06 18:39] MED LIST changes: -HYDR-3580 PO; -ULTR50TA5 PO
[2017-02-06 18:58] VITALS: BP 146/93; PULSE 105; RESP 20; TEMP 98.9; O2SAT 98
[2017-02-06] MEDS ORDERED: FAMC500T PO (21:29)
[2017-02-06] MEDS ORDERED: PERC5TAB12 PO (21:29)
[2017-02-06 21:30] VITALS: BP 168/92; PULSE 77; RESP 16; O2SAT 99
--- NOTE | 2017-02-06 21:30 | PD ---
HPI . Facial rash Chief Complaint: GI Complaint Time Seen by Provider: 21:21 Travel History International Travel<30 days: No Contact w/Intl Traveler<30days: No Traveled to known affect area: No History of Present Illness HPI Patient presents with the chief complaint of a painful facial rash. Onset was today. He states it is just getting bigger and bigger and bigger. He states that it is extremely painful. The pain is so bad that is making him nauseous. He notes no modifying factors. He denies any visual disturbance. He denies fever. 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 ) Asthma: No Autoimmune Disease: No Anxiety: Yes Depression: No Heart Rhythm Problems: No Cancer: No Cardiovascular Problems: Yes (HTN) High Cholesterol: No Chemotherapy: No Chest Pain: No Congestive Heart Failure: No COPD: No Cerebrovascular Accident: No Diabetes: No Diminished Hearing: Yes (L ear ) Diverticulitis: Yes Endocrine: No Gastrointestinal Disorders: Yes (COLONOSCOPY JANUARY 2014) GERD: Yes Genitourinary: No Headaches: No Hiatal Hernia: No Heparin Induced Thrombocytopen: No Hypertension: Yes Immune Disorder: No Implanted Vascular Access Dvce: Yes Kidney Stones: No Musculoskeletal: Yes Neurologic: Yes Psychiatric: Yes Reproductive: No Respiratory: No Immunizations Current: Yes Migraines: No Pancreatitis: Yes Radiation Therapy: No Renal Failure: No Seizures: Yes (IN PAST R/T ALCOHOL WITHDRAWAL 2013) Sickle Cell Disease: No Sleep Apnea: No Thyroid Disease: No Ulcer: No PNEUMOCCOCAL Vaccine (Year): 2 Past Surgical History Abdominal Surgery: No AICD: No Arteriovenous Shunt: No Body Medical Devices: DISSOLVABLE SCREW IN LEFT ANKLE - placed 2014 Cardiac Surgery: No Ear Surgery: No Endocrine Surgery: No Eye Surgery: No Genitourinary Surgery: No Gynecologic Surgery: No Hysterectomy: No Insulin Pump: No Joint Replacement: Yes (L FEMUR BONE 06/2015) Neurologic Surgery: No Oral Surgery: No Pacemaker: No Thoracic Surgery: No Other Surgery: Yes (2 BACK AND ONE NECK SURGERIES-microdiskectomy,left achilles tendon repair) Social History Alcohol Use: Yes (3 TOv4 times a week, states rum) Tobacco Use: No Substance Use: Yes (states smokes marijunana Q3DAYS) Allergies-Medications (Allergen,Severity, Reaction): Coded Allergies: codeine (Unverified Allergy, Severe, RASH, 02/06/17) levofloxacin (Unverified Allergy, Severe, ACHILLES TENDON PROBLEM, ) metronidazole (Unverified Allergy, Severe, 02/06/17) sulfamethoxazole (Unverified Allergy, Severe, Diarrhea, 02/06/17) trimethoprim (Unverified Allergy, Severe, Diarrhea, 02/06/17) Reported Meds & Prescriptions Reported Meds & Active Scripts Active Percocet (Oxycodone-Acetaminophen) 5-325 mg Tab 1 Tab PO Q4H PRN Famciclovir 500 Mg Tab 500 Mg PO TID 10 Days Lactobacillus Acidophilus 1 Pkt 1 Pkt PO TID Vancomycin (Vancomycin HCl) 125 Mg Cap 125 Mg PO DIRECTED 50 Days 125 mg po 4x daily x 14 days, then 125 mg po 2x daily x 7 days then,125 mg po 1x daily x 7 days, then 125 mg po every other day x 8 days (4 doses), then 125 mg po every 3 days x 2 weeks (5 doses) Reported Amlodipine (Amlodipine Besylate) 5 Mg Tab 5 Mg PO DAILY Pantoprazole (Pantoprazole Sodium) 40 Mg Tab 40 Mg PO DAILY Alprazolam 0.5 Mg Tab 0.5 Mg PO BID Lisinopril 20 Mg Tab 20 Mg PO DAILY Review of Systems Except as stated in HPI: all other systems reviewed are Neg General / Constitutional: No: Fever, Chills Eyes: No: Blurred Vision, Photophobia, Redness, Foreign Body Sensation, Pain HENT: Positive: Headaches Gastrointestinal: Positive: Nausea Skin: Positive Rash Physical Exam Narrative GENERAL: Awake and alert. SKIN: warm/dry. He has a vesicular rash on the left forehead extending into the left frontal scalp. The rash does not cross the midline. It does not appear to involve his eye. HEAD: Normocephalic. Atraumatic. EYES: Pupils equal and round. No scleral icterus. No injection or drainage. No redness. ENT: No nasal bleeding or discharge. Mucous membranes pink and moist. NECK: Trachea midline. Full range of motion without pain.. CARDIOVASCULAR: Regular rate and rhythm. RESPIRATORY: No accessory muscle use. Clear to auscultation. Breath sounds equal bilaterally. GASTROINTESTINAL: Abdomen soft. Nontender. Bowel sounds present. Nondistended. MUSCULOSKELETAL: No obvious deformities. NEUROLOGICAL: Awake and alert. No obvious cranial nerve deficits. Motor grossly within normal limits. Normal speech. PSYCHIATRIC: Appropriate mood and affect; insight and judgment normal. Data Data Last Documented VS Vital Signs Date Time Temp Pulse Resp B/P (MAP) Pulse Ox O2 Delivery O2 Flow Rate FiO2 02/06/17 18:58 98.9 105 20 146/93 (110) 98 MDM Medical Decision Making Medical Screen Exam Complete: Yes Emergency Medical Condition: Yes Differential Diagnosis The differential diagnosis of the skin rash includes but is not limited to allergic urticaria, scabies, insect bites, contact dermatitis Narrative Course This patient presents with a painful rash on his left forehead. His exam is consistent with shingles. He will be discharged on Famvir and Percocet. Diagnosis Primary Impression: Shingles Qualified Codes: B02.9 - Zoster without complications Patient Instructions: General Instructions, Narcotic given in the ED, Shingles (DC) Med/Other Pt SpecificInfo: Prescription(s) given Scripts Oxycodone-Acetaminophen (Percocet) 5-325 mg Tab 1 TAB PO Q4H Y for PAIN, #12 TAB 0 Refills Prov: Barbie Fragoso MD 02/06/17 Famciclovir (Famciclovir) 500 Mg Tab 500 MG PO TID for Mgmt Viral Infection for 10 Days, TAB 0 Refills Prov: Barbie Fragoso MD 02/06/17 Disposition: 01 DISCHARGE HOME Condition: Stable Barbie Fragoso MD Feb 06, 2017 21:30
[2017-02-06] MEDS ORDERED: ACYC800T PO (21:41)
[2017-02-06] MEDS ORDERED: ACYCLOVIR 800 MG TAB PO ONE (21:45)
[2017-02-06] MEDS ORDERED: oxyCODONE/ACETAMINOPHEN 5 MG/325 MG TAB PO ONE (21:45)
[2017-02-06] MEDS ORDERED: FAMCICLOVIR 500 MG TAB PO ONE (21:45)
[2017-02-12] MEDS ORDERED: ZIRG0.15 LEFT EYE (10:21)
== END 2017-02-06 22:12 | disposition home or self-care (01) ==
LOC: PHED 18:39
DX: B02.9 Zoster without complications (principal); M19.012 Primary osteoarthritis, left shoulder; M19.011 Primary osteoarthritis, right shoulder; I10 Essential (primary) hypertension; Z79.899 Other long term (current) drug therapy
CPT/HCPCS: 99284

== ENCOUNTER 2017-02-07 03:02 | Inpatient (IN) | payer BC ==
[2017-02-07] VITALS (7 sets, daily range): BP systolic 143–170; BP diastolic 88–101; PULSE 82–106; RESP 16–20; TEMP 95.8–98; O2SAT 96–100
[~2017-02-07] VITALS: Ht 175.3 cm; Wt 68.4 kg
[~2017-02-07 03:02] MED LIST changes: +ACYC800T PO; +PERC5TAB12 PO
[2017-02-07] MEDS ORDERED: ONDANSETRON HCL 4 MG/2 ML VIAL IV ONE (03:45)
--- NOTE | 2017-02-07 04:01 | PD ---
HPI Chief Complaint: Facial Pain or Swelling Time Seen by Provider: 03:43 Travel History International Travel<30 days: No Contact w/Intl Traveler<30days: No Traveled to known affect area: No History of Present Illness HPI The patient is a 61-year-old male who apparently was here earlier tonight for a shingles rash. He states he has been nauseated and vomiting and has some abdominal pain. He denies any diarrhea. About a month ago he had Clostridium difficile and has been treated with oral vancomycin. He is taking oral vancomycin now. He states he has some generalized abdominal cramping, nausea and vomiting and vomited about 5 times today. He states he feels dehydrated. The herpes zoster involves the left forehead/facial rash but he denies any visual disturbance or eye pain. He is a frequent visitor to this emergency department and complains of the pain being so bad it makes him nauseated. He called the ambulance tonight to come back here. He denies any fever. He denies any blood in the stool or vomiting any blood. He does have a history of alcohol and marijuana abuse. 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 ) Asthma: No Autoimmune Disease: No Anxiety: Yes Depression: No Heart Rhythm Problems: No Cancer: No Cardiovascular Problems: Yes (HTN) High Cholesterol: No Chemotherapy: No Chest Pain: No Congestive Heart Failure: No COPD: No Cerebrovascular Accident: No Diabetes: No Diminished Hearing: Yes (L ear ) Diverticulitis: Yes Endocrine: No Gastrointestinal Disorders: Yes (COLONOSCOPY JANUARY 2014) GERD: Yes Genitourinary: No Headaches: No Hiatal Hernia: No Heparin Induced Thrombocytopen: No Hypertension: Yes Immune Disorder: No Implanted Vascular Access Dvce: Yes Kidney Stones: No Musculoskeletal: Yes Neurologic: Yes Psychiatric: Yes Reproductive: No Respiratory: No Immunizations Current: Yes Migraines: No Pancreatitis: Yes Radiation Therapy: No Renal Failure: No Seizures: Yes (IN PAST R/T ALCOHOL WITHDRAWAL 2013) Sickle Cell Disease: No Sleep Apnea: No Thyroid Disease: No Ulcer: No PNEUMOCCOCAL Vaccine (Year): 2 ?: Not Past Surgical History Abdominal Surgery: No AICD: No Arteriovenous Shunt: No Body Medical Devices: DISSOLVABLE SCREW IN LEFT ANKLE - placed 2014 Cardiac Surgery: No Ear Surgery: No Endocrine Surgery: No Eye Surgery: No Genitourinary Surgery: No Gynecologic Surgery: No Hysterectomy: No Insulin Pump: No Joint Replacement: Yes (L FEMUR BONE 06/2015) Neurologic Surgery: No Oral Surgery: No Pacemaker: No Thoracic Surgery: No Other Surgery: Yes (2 BACK AND ONE NECK SURGERIES-microdiskectomy,left achilles tendon repair) Social History Alcohol Use: Yes (3 TOv4 times a week, states rum) Tobacco Use: No Substance Use: Yes (states smokes marijunana Q3DAYS) Allergies-Medications (Allergen,Severity, Reaction): Coded Allergies: codeine (Unverified Allergy, Severe, RASH, 02/06/17) levofloxacin (Unverified Allergy, Severe, ACHILLES TENDON PROBLEM, ) metronidazole (Unverified Allergy, Severe, 02/06/17) sulfamethoxazole (Unverified Allergy, Severe, Diarrhea, 02/06/17) trimethoprim (Unverified Allergy, Severe, Diarrhea, 02/06/17) Reported Meds & Prescriptions Reported Meds & Active Scripts Active Acyclovir 800 Mg Tab 800 Mg PO 5 TIMES A DAY 10 Days Percocet (Oxycodone-Acetaminophen) 5-325 mg Tab 1 Tab PO Q4H PRN Lactobacillus Acidophilus 1 Pkt 1 Pkt PO TID Vancomycin (Vancomycin HCl) 125 Mg Cap 125 Mg PO DIRECTED 50 Days 125 mg po 4x daily x 14 days, then 125 mg po 2x daily x 7 days then,125 mg po 1x daily x 7 days, then 125 mg po every other day x 8 days (4 doses), then 125 mg po every 3 days x 2 weeks (5 doses) Reported Amlodipine (Amlodipine Besylate) 5 Mg Tab 5 Mg PO DAILY Pantoprazole (Pantoprazole Sodium) 40 Mg Tab 40 Mg PO DAILY Alprazolam 0.5 Mg Tab 0.5 Mg PO BID Lisinopril 20 Mg Tab 20 Mg PO DAILY Review of Systems Except as stated in HPI: all other systems reviewed are Neg Physical Exam Narrative GENERAL: The patient is alert, oriented 3, not appearing intoxicated and answers questions quickly properly. He does appear moderately dehydrated. His vital signs show pulse rate of 106 with blood pressure 129/99 but are otherwise normal. SKIN: Focused skin assessment warm/dry. HEAD: Atraumatic. Normocephalic. EYES: Pupils equal and round. No scleral icterus. No injection or drainage. ENT: No nasal bleeding or discharge. Mucous membranes pink and moist. NECK: Trachea midline. No JVD. CARDIOVASCULAR: Regular rate and rhythm. No murmur appreciated. RESPIRATORY: No accessory muscle use. Clear to auscultation. Breath sounds equal bilaterally. GASTROINTESTINAL: Abdomen soft, with mild generalized tenderness in the bilateral lower quadrants to direct palpation, nondistended. Hepatic and splenic margins not palpable. No guarding or rebound is present. MUSCULOSKELETAL: No obvious deformities. No clubbing. No cyanosis. No edema. NEUROLOGICAL: Awake and alert. No obvious cranial nerve deficits. Motor grossly within normal limits. Normal speech. PSYCHIATRIC: Appropriate mood and affect; insight and judgment normal. RECTAL EXAM: No masses or tenderness, stool is brown and trace guaiac positive. Data Data Last Documented VS Vital Signs Date Time Temp Pulse Resp B/P (MAP) Pulse Ox O2 Delivery O2 Flow Rate FiO2 02/07/17 03:09 98.0 106 18 149/99 (116) 100 Orders Orders Complete Blood Count With Diff (02/07/17 03:43) Comprehensive Metabolic Panel (02/07/17 03:43) Lipase (02/07/17 03:43) Urinalysis - C+S If Indicated (02/07/17 03:43) Drug Screen, Random Urine (02/07/17 03:43) Alcohol (Ethanol) (02/07/17 03:43) Ondansetron Inj (Zofran Inj) (02/07/17 03:45) Sodium Chlor 0.9% 1000 Ml Inj (Ns 1000 M (02/07/17 03:45) Magnesium (Mg) (02/07/17 04:01) Beta Hydroxybutyrate (Acetone) (02/07/17 04:01) Magnesium Oxide (Mag-Ox) (02/07/17 04:45) Labs Laboratory Tests Test 02/07/17 04:00 02/07/17 05:00 White Blood Count 8.2 TH/MM3 Red Blood Count 3.82 MIL/MM3 Hemoglobin 10.9 GM/DL Hematocrit 33.0 % Mean Corpuscular Volume 86.4 FL Mean Corpuscular Hemoglobin 28.7 PG Mean Corpuscular Hemoglobin Concent 33.2 % Red Cell Distribution Width 18.9 % Platelet Count 309 TH/MM3 Mean Platelet Volume 8.4 FL Neutrophils (%) (Auto) 60.0 % Lymphocytes (%) (Auto) 21.5 % Monocytes (%) (Auto) 12.9 % Eosinophils (%) (Auto) 1.1 % Basophils (%) (Auto) 4.5 % Neutrophils # (Auto) 4.8 TH/MM3 Lymphocytes # (Auto) 1.8 TH/MM3 Monocytes # (Auto) 1.1 TH/MM3 Eosinophils # (Auto) 0.1 TH/MM3 Basophils # (Auto) 0.4 TH/MM3 CBC Comment DIFF FINAL Differential Comment Blood Urea Nitrogen 21 MG/DL Creatinine 1.40 MG/DL Random Glucose 105 MG/DL Total Protein 8.0 GM/DL Albumin 3.9 GM/DL Calcium Level 8.4 MG/DL Alkaline Phosphatase 70 U/L Aspartate Amino Transf (AST/SGOT) 38 U/L Alanine Aminotransferase (ALT/SGPT) 28 U/L Total Bilirubin 0.6 MG/DL Sodium Level 135 MEQ/L Potassium Level 3.8 MEQ/L Chloride Level 100 MEQ/L Carbon Dioxide Level 23.6 MEQ/L Anion Gap 11 MEQ/L Estimat Glomerular Filtration Rate 51 ML/MIN Magnesium Level 0.5 MG/DL Lipase 193 U/L Ethyl Alcohol Level LESS THAN 3 MG/DL B-Hydroxybutyrate 1.16 MMOL/L [facility] Medical Decision Making Medical Screen Exam Complete: Yes Emergency Medical Condition: Yes Medical Record Reviewed: Yes Interpretation(s) The CBC shows a hemoglobin of 10.9 and hematocrit of 33.0 but is otherwise unremarkable. The complete metabolic profile shows a BUN of 21, creatinine 1.4 , GFR 51 with calcium 8.4 and SGOT of 38 and sodium 135 but is otherwise unremarkable. The alcohol level is essentially 0 and the lipase is 193. The magnesium is 0.5 and beta hydroxy is 1.16. Differential Diagnosis Dehydration, electrolyte imbalance, lower GI bleed, hypo-/hyperglycemia, alcohol abuse, starvation ketoacidosis, alcoholic ketosis, pancreatitis, herpes zoster, elevated beta hydroxybutyrate, hypomagnesemia Narrative Course The patient has had vomiting, according to him, all day yesterday. He does appear dehydrated and he does have an elevated beta hydroxy butyrate. His anion gap is normal at 11. The magnesium level is low. The patient will be 20 for observation for hydration. Diagnosis Primary Impression: Dehydration Additional Impressions: Hypomagnesemia Ketosis Osiel Sutherland MD Feb 07, 2017 04:01
[2017-02-07] MEDS: SODIUM CHLOR 0.9% 1000 ML INJ 1,000 ML IV SCH ×4 (04:08→15:14)
[2017-02-07 04:14] LABS: AUTOMATED NEUTROPHIL # 4.8 TH/MM3 (1.8-7.7); BASOPHIL # 0.4 TH/MM3 (0-0.2); BASOPHIL % 4.5 % (0.0-2.0); EOSINOPHIL # 0.1 TH/MM3 (0-0.4); EOSINOPHIL % 1.1 % (0.0-4.0); HEMO FLAGS DIFF FINAL; LYMPH % 21.5 % (9.0-44.0); LYMPHOCYTE # 1.8 TH/MM3 (1.0-4.8); MEAN CELL VOLUME 86.4 FL (80.0-100.0); MEAN CORPUSCULAR HEMOGLOBIN 28.7 PG (27.0-34.0); MEAN CORPUSCULAR HGB CONC 33.2 % (32.0-36.0); MONO % 12.9 % (0.0-8.0); PLATELET COUNT 309 TH/MM3 (150-450); RED BLOOD COUNT 3.82 MIL/MM3 (4.50-5.90); RED CELL DISTRIBUTION WIDTH 18.9 % (11.6-17.2); WHITE BLOOD COUNT 8.2 TH/MM3 (4.0-11.0)
[2017-02-07 04:28] LABS: CHLORIDE 100 MEQ/L (98-107); POTASSIUM 3.8 MEQ/L (3.5-5.1); SODIUM (NA) 135 MEQ/L (136-145)
[2017-02-07 04:31] LABS: ANION GAP 11 MEQ/L (5-15); BICARBONATE 23.6 MEQ/L (21.0-32.0); BLOOD UREA NITROGEN 21 MG/DL (7-18); MAGNESIUM 0.5 MG/DL (1.5-2.5)
[2017-02-07 04:34] LABS: ALT (GPT) 28 U/L (12-78); AST (GOT) 38 U/L (15-37); GLOMERULAR FILTRATION RATE 51 ML/MIN (>89)
[2017-02-07 04:35] LABS: TOTAL BILIRUBIN ADULT 0.6 MG/DL (0.2-1.0)
[2017-02-07 04:37] LABS: ALKALINE PHOSPHATASE 70 U/L (45-117)
[2017-02-07] MEDS ORDERED: MAGNESIUM OXIDE 400 MG TAB PO ONE (04:45)
[2017-02-07 04:46] LABS: BETA-HYDROXYBUTYRATE 1.16 MMOL/L (0.00-0.39)
[2017-02-07 05:04] LABS: ALCOHOL LESS THAN 3 MG/DL (0-5)
[2017-02-07 05:08] LABS: BLOOD, URINE NEG (NEG); GLUCOSE,URINE NEG (NEG); KETONE, URINE NEG (NEG); NITRITE,URINE NEG (NEG)
[2017-02-07] MEDS ORDERED: MAGNESIUM HYDROXIDE SUSP 30 ML CUP PO PRN (05:15)
[2017-02-07] MEDS ORDERED: traMADol HCL 50 MG TAB PO PRN ×2 (05:15)
[2017-02-07] MEDS ORDERED: LACTULOSE SYRUP 20 GM/30 ML CUP PO PRN (05:15)
[2017-02-07] MEDS ORDERED: SENNOSIDES 8.6 MG TAB PO PRN (05:15)
[2017-02-07] MEDS ORDERED: ACETAMINOPHEN 325 MG TAB PO PRN (05:15)
[2017-02-07] MEDS ORDERED: BISACODYL 10 MG SUPP RECTAL PRN (05:15)
[2017-02-07 05:32] LABS: COMMENT (UR) CULT NOT INDICATED; CULTURE IF INDICATED CULT NOT INDICATED; METHOD OF COLLECTION VOIDED; SQUAMOUS EPITHELIAL CELL URINE 0-2 /hpf (0-5); URINE COLOR STRAW (YELLW/STRAW)
[2017-02-07] MEDS: ONDANSETRON HCL 4 MG/2 ML VIAL IVP PRN ×3 (06:52→21:00)
[2017-02-07] MEDS: ACYCLOVIR 800 MG TAB PO SCH ×5 (06:53→21:01)
[2017-02-07] MEDS: SODIUM CHLORIDE 0.9% FLUSH 10 ML FLUSH IV FLUSH SCH ×2 (09:00→21:00)
[2017-02-07] MEDS: PANTOPRAZOLE SOD 40 MG DELAYED RELEASE TAB PO SCH (09:29)
[2017-02-07] MEDS: DOCUSATE SODIUM 50 MG/SENNA 8.6 MG TAB PO SCH ×2 (09:29→21:00)
[2017-02-07] MEDS: MAGNESIUM SULFATE 1 GM PREMIX 100 ML IV SCH ×2 (12:03→13:40)
--- NOTE | 2017-02-07 13:38 | HHI.HP ---
[facility] Yamil Collado, DO Admission Diagnosis dehydration, ketosis, hypomagnesemia, intractable vomiting Diagnoses: (1) Dehydration Diagnosis: Principal (2) Hypomagnesemia Diagnosis: Principal (3) Herpes zoster Diagnosis: Principal (4) Nausea & vomiting Diagnosis: Principal (5) Elevated beta-hydroxybutyrate Diagnosis: Principal Chief Complaint: Nausea vomiting, headache Travel History International Travel<30 Days: No Contact w/Intl Traveler <30 Da: No Traveled to Known Affected Are: No History of Present Illness Written by Zane Sutherland, acting as scribe for Dr. Alonzo on 02/07/17 at 13:27. 61 year-old male with known history of chronic neck, chronic back pain , recurrent C. difficile infection, hypertension, gastroesophageal reflux, alcohol abuse, alcohol-related seizures who presented to the hospital because of headache, nausea, vomiting. Patient states that his pain started on Wednesday at 2 AM when he woke up with severe pain over the left side of his forehead. He noticed that he had a rash there and he had an episode of vomiting secondary to the severe pain that he is experiencing. The patient went to the ER on 02/06 and was diagnosed with herpes zoster, patient was discharged home with famciclovir, Percocet. However patient was unable to fill the prescription because it was too late at night. Patient states that the pain was so severe he could not tolerate it. He had persistent nausea, vomiting. Because of those reasons he came back to the ER for reevaluation. Patient had studies performed which did indicate some mild dehydration, chronic hypomagnesemia, elevated beta hydroxybutyrate. Because patient was having severe pain, intractable nausea vomiting, dehydration it was recommended by the ER physician the patient be observed in the hospital for recommendations. Patient does have a rash noted over the left side of his forehead and in his eyebrow and eyelid. He does have some eye pain. However he does not have any pain on movement, visual disturbances. Patient denies any chest pain, fever, chills, hematemesis , melena, hematochezia. Review of Systems Eyes: COMPLAINS OF: Eye pain Neurologic: COMPLAINS OF: Headache Except as stated in HPI: all other systems reviewed are Neg Past Family Social History Past Medical History Hypertension History of diverticulitis GERD Arthritis History of pancreatitis Recurrent clostridium difficile Alcoholism History of alcohol-related seizures Herpes zoster Past Surgical History Rectal surgery Left-sided chest tube Back surgery 2 Neck surgery Left Achilles tendon surgery Left hip hemiarthroplasty Reported Medications Reported Meds & Active Scripts Active Acyclovir 800 Mg Tab 800 Mg PO 5 TIMES A DAY 10 Days Percocet (Oxycodone-Acetaminophen) 5-325 mg Tab 1 Tab PO Q4H PRN Lactobacillus Acidophilus 1 Pkt 1 Pkt PO TID Vancomycin (Vancomycin HCl) 125 Mg Cap 125 Mg PO DIRECTED 50 Days 125 mg po 4x daily x 14 days, then 125 mg po 2x daily x 7 days then,125 mg po 1x daily x 7 days, then 125 mg po every other day x 8 days (4 doses), then 125 mg po every 3 days x 2 weeks (5 doses) Reported Amlodipine (Amlodipine Besylate) 5 Mg Tab 5 Mg PO DAILY Pantoprazole (Pantoprazole Sodium) 40 Mg Tab 40 Mg PO DAILY Alprazolam 0.5 Mg Tab 0.5 Mg PO BID Lisinopril 20 Mg Tab 20 Mg PO DAILY Allergies: Coded Allergies: codeine (Unverified Allergy, Severe, RASH, 02/06/17) levofloxacin (Unverified Allergy, Severe, ACHILLES TENDON PROBLEM, ) metronidazole (Unverified Allergy, Severe, 02/06/17) sulfamethoxazole (Unverified Allergy, Severe, Diarrhea, 02/06/17) trimethoprim (Unverified Allergy, Severe, Diarrhea, 02/06/17) Family History Reviewed and significant for mother with heart disease and dementia Social History Patient states that he does continue to drink approximately 23 rum drinks daily. Patient does use marijuana occasionally. Denies any tobacco use. Physical Exam Vital Signs Vital Signs Date Time Temp Pulse Resp B/P (MAP) Pulse Ox O2 Delivery O2 Flow Rate FiO2 02/07/17 12:00 97.9 86 18 167/93 (117) 98 02/07/17 08:00 97.6 89 20 143/98 (113) 96 02/07/17 06:23 97.6 82 16 155/101 (119) 99 02/07/17 06:13 92 18 98 02/07/17 05:46 89 18 144/88 (106) 98 Room Air 02/07/17 03:09 98.0 106 18 149/99 (116) 100 Physical Exam GENERAL: Well-developed, well-nourished, in no acute distress. alert and orientated HEENT: Head is normocephalic without any lesions or masses noted. Facial features are symmetric. Eyes: Pupils equal round reactive to light. Extraocular muscles are intact. Conjunctivae were clear. Oropharyngeal: Pharynx without any erythema edema. Tongue is midline without deviation. Buccal mucosa is moist without any masses or lesions NECK: Supple without any masses. Trachea midline no deviation. No JVD, no bruits are appreciated CARDIAC: Regular rhythm, regular rate. S1/S2 are heard. No murmurs gallops or rubs. LUNGS: Clear to auscultation bilaterally. No wheeze, rhonchi or rales. No use of accessory muscles on inspiration or expiration. ABDOMEN: Soft, nontender. Nondistended. Bowel sounds heard in all 4 quadrants. No organomegaly or masses. Negative rebound, negative guarding EXTREMITIES: No edema, pulses are equal bilaterally. No cyanosis or clubbing NEUROLOGY: No facial droop, no slurred speech, spontaneous tremors Psychiatry: Mood and affect appropriate SKIN: Patient does have a papular rash noted over the left side of his forehead , left eyebrow, left eyelid. He has some mild crusting noted without any vesicular lesions Laboratory Laboratory Tests Test 02/07/17 04:00 02/07/17 05:00 White Blood Count 8.2 Red Blood Count 3.82 Hemoglobin 10.9 Hematocrit 33.0 Mean Corpuscular Volume 86.4 Mean Corpuscular Hemoglobin 28.7 Mean Corpuscular Hemoglobin Concent 33.2 Red Cell Distribution Width 18.9 Platelet Count 309 Mean Platelet Volume 8.4 Neutrophils (%) (Auto) 60.0 Lymphocytes (%) (Auto) 21.5 Monocytes (%) (Auto) 12.9 Eosinophils (%) (Auto) 1.1 Basophils (%) (Auto) 4.5 Neutrophils # (Auto) 4.8 Lymphocytes # (Auto) 1.8 Monocytes # (Auto) 1.1 Eosinophils # (Auto) 0.1 Basophils # (Auto) 0.4 CBC Comment DIFF FINAL Differential Comment Blood Urea Nitrogen 21 Creatinine 1.40 Random Glucose 105 Total Protein 8.0 Albumin 3.9 Calcium Level 8.4 Alkaline Phosphatase 70 Aspartate Amino Transf (AST/SGOT) 38 Alanine Aminotransferase (ALT/SGPT) 28 Total Bilirubin 0.6 Sodium Level 135 Potassium Level 3.8 Chloride Level 100 Carbon Dioxide Level 23.6 Anion Gap 11 Estimat Glomerular Filtration Rate 51 Magnesium Level 0.5 Lipase 193 Ethyl Alcohol Level LESS THAN 3 B-Hydroxybutyrate 1.16 Urine Collection Type VOIDED Urine Color STRAW Urine Turbidity CLEAR Urine pH 7.0 Urine Specific [place] 1.008 Urine Protein NEG Urine Glucose (UA) NEG Urine Ketones NEG Urine Occult Blood NEG Urine Nitrite NEG Urine Bilirubin NEG Urine Leukocyte Esterase NEG Urine Squamous Epithelial Cells 0-2 Microscopic Urinalysis Comment CULT NOT INDICATED Urine Opiates Screen NEG Urine Barbiturates Screen NEG Urine Amphetamines Screen NEG Urine Benzodiazepines Screen POS Urine Cocaine Screen NEG Urine Cannabinoids Screen POS Result Diagram: 02/07/1739902/07/17399 Caprini VTE Risk Assessment Caprini VTE Risk Assessment: Mod/High Risk (score >= 2) Caprini Risk Assessment Model Point Value = 1 Point Value = 2 Point Value = 3 Point Value = 5 Age 41-60 Minor surgery BMI > 25 kg/m2 Swollen legs Varicose veins or History of unexplained or recurrent spontaneous Oral contraceptives or hormone replacement Sepsis (< 1 month) Serious lung disease, including pneumonia (< 1 month) Abnormal pulmonary function Acute myocardial infarction Congestive heart failure (< 1 month) History of inflammatory bowel disease Medical patient at bed rest Age 61-74 Arthroscopic surgery Major open surgery (> 45 min) Laparoscopic surgery (> 45 min) Malignancy Confined to bed (> 72 hours) Immobilizing plaster cast Central venous access Age >= 75 History of VTE Family history of VTE Factor V Leiden Prothrombin [id number] Lupus anticoagulant Anticardiolipin antibodies Elevated serum homocysteine Heparin-induced thrombocytopenia Other congenital or acquired thrombophilia Stroke (< 1 month) Elective arthroplasty Hip, pelvis, or leg fracture Acute spinal cord injury (< 1 month) Prophylaxis Regimen Total Risk Factor Score Risk Level Prophylaxis Regimen 0-1 Low Early ambulation 2 Moderate Order ONE of the following: *Sequential Compression Device (SCD) *Heparin 5000 units SQ BID 3-4 Higher Order ONE of the following medications: *Heparin 5000 units SQ TID *Enoxaparin/Lovenox 40 mg SQ daily (WT < 150 kg, CrCl > 30 mL/min) *Enoxaparin/Lovenox 30 mg SQ daily (WT < 150 kg, CrCl > 10-29 mL/min) *Enoxaparin/Lovenox 30 mg SQ BID (WT < 150 kg, CrCl > 30 mL/min) AND/OR *Sequential Compression Device (SCD) 5 or more Highest Order ONE of the following medications: *Heparin 5000 units SQ TID (Preferred with Epidurals) *Enoxaparin/Lovenox 40 mg SQ daily (WT < 150 kg, CrCl > 30 mL/min) *Enoxaparin/Lovenox 30 mg SQ daily (WT < 150 kg, CrCl > 10-29 mL/min) *Enoxaparin/Lovenox 30 mg SQ BID (WT < 150 kg, CrCl > 30 mL/min) AND *Sequential Compression Device (SCD) Assessment and Plan Assessment and Plan Intractable nausea vomiting with dehydration Could be secondary to persistent pain, headache, cyclic vomiting for marijuana use Continue IV fluids Advance diet as tolerated Zofran/Phenergan as needed Herpes zoster of the forehead Does not appear to have any eye involvement in this time Continue acyclovir Start Neurontin for herpetic neuropathic pain Continue tramadol Lidocaine ointment as needed for facial pain Chronic hypomagnesemia Replace and continue to monitor Acute renal failure superimposed on chronic kidney disease stage III Likely secondary to nausea, vomiting, dehydration - hydrate as above Continue monitor renal function Avoid nephrotoxins Hypertension Continue home medications Recurrent C. difficile infection Continue tapering home dose of vancomycin DVT prevention Sequential compression devices This note was transcribed by juan miguel Sutherland. I, Monty Alonzo, personally performed the history, physical exam, and medical decision making; and confirmed the accuracy of information in the transcribed note. Authenticated by Monty Alonzo on 2:43 PM on :. I authorize all orders entered by Khalif Sutherland at my discretion. Zane Sutherland Feb 07, 2017 13:38 Monty Alonzo MD Feb 07, 2017 14:55
[2017-02-07] MEDS: GABAPENTIN 300 MG CAP PO SCH ×2 (13:40→17:41)
[2017-02-07] MEDS ORDERED: oxyCODONE/ACETAMINOPHEN 5 MG/325 MG TAB PO PRN (15:00)
[2017-02-07] MEDS: ALPRAZolam 0.5 MG TAB PO SCH ×2 (15:39→21:00)
[2017-02-07] MEDS: VANCOMYCIN 500 MG VIAL (FOR ORAL USE ONLY) PO SCH (15:39)
[2017-02-07] MEDS: LISINOPRIL 20 MG TAB PO SCH (15:39)
[2017-02-07] MEDS: amLODIPine BESYLATE 5 MG TAB PO SCH (15:39)
[2017-02-07] MEDS: LIDOCAINE HCL 5% OINT 37 GM TUBE TOPICAL PRN (17:41)
[2017-02-07] MEDS: ACETAMINOPHEN/HYDROcodone 325 MG/10 MG TAB PO PRN (17:41)
[2017-02-07] MEDS: LACTOBACILLUS ACIDOPHILUS 1 GM PACKET PO SCH (18:00)
[2017-02-08] VITALS: BP 172/103; PULSE 91; RESP 20; TEMP 97.9; O2SAT 100
[2017-02-08] MEDS: ACETAMINOPHEN/HYDROcodone 325 MG/10 MG TAB PO PRN ×6 (00:32→22:15)
[2017-02-08] MEDS: SODIUM CHLOR 0.9% 1000 ML INJ 1,000 ML IV SCH ×2 (00:33→11:41)
[2017-02-08 04:00] VITALS: BP 159/95; PULSE 85; RESP 18; TEMP 97.7; O2SAT 97
[2017-02-08] MEDS: ACYCLOVIR 800 MG TAB PO SCH ×5 (05:48→21:46)
[2017-02-08 08:00] VITALS: BP 145/91; PULSE 76; RESP 18; TEMP 99.1; O2SAT 98
[2017-02-08] MEDS: SODIUM CHLORIDE 0.9% FLUSH 10 ML FLUSH IV FLUSH SCH ×2 (08:17→21:47)
[2017-02-08] MEDS: ONDANSETRON HCL 4 MG/2 ML VIAL IVP PRN ×3 (08:20→22:14)
[2017-02-08 08:47] LABS: BASOPHIL % 0.5 % (0.0-2.0); EOSINOPHIL # 0.1 TH/MM3 (0-0.4); EOSINOPHIL % 1.3 % (0.0-4.0); HEMATOCRIT 33.9 % (39.0-51.0); HEMO FLAGS DIFF FINAL; LYMPH % 10.6 % (9.0-44.0); LYMPHOCYTE # 0.7 TH/MM3 (1.0-4.8); MEAN CELL VOLUME 87.2 FL (80.0-100.0); MEAN CORPUSCULAR HEMOGLOBIN 27.8 PG (27.0-34.0); MEAN CORPUSCULAR HGB CONC 31.9 % (32.0-36.0); MONO % 12.4 % (0.0-8.0); NEUT % 75.2 % (16.0-70.0); PLATELET COUNT 318 TH/MM3 (150-450); RED BLOOD COUNT 3.88 MIL/MM3 (4.50-5.90); RED CELL DISTRIBUTION WIDTH 18.6 % (11.6-17.2); WHITE BLOOD COUNT 6.6 TH/MM3 (4.0-11.0)
[2017-02-08 08:53] LABS: CHLORIDE 96 MEQ/L (98-107); POTASSIUM 3.5 MEQ/L (3.5-5.1); SODIUM (NA) 133 MEQ/L (136-145)
[2017-02-08 08:57] LABS: ANION GAP 12 MEQ/L (5-15); BICARBONATE 25.3 MEQ/L (21.0-32.0)
[2017-02-08] MEDS ORDERED: INFLUENZA VIRUS VACCINE (QUADRIVALENT) 0.5 ML SYR IM ONE (09:00)
[2017-02-08] MEDS: LACTOBACILLUS ACIDOPHILUS 1 GM PACKET PO SCH ×3 (09:26→17:59)
[2017-02-08] MEDS: VANCOMYCIN 500 MG VIAL (FOR ORAL USE ONLY) PO SCH (09:27)
[2017-02-08] MEDS: LISINOPRIL 20 MG TAB PO SCH (09:27)
[2017-02-08] MEDS: amLODIPine BESYLATE 5 MG TAB PO SCH (09:27)
[2017-02-08] MEDS: ALPRAZolam 0.5 MG TAB PO SCH ×2 (09:27→21:46)
[2017-02-08] MEDS: PANTOPRAZOLE SOD 40 MG DELAYED RELEASE TAB PO SCH (09:27)
[2017-02-08] MEDS: GABAPENTIN 300 MG CAP PO SCH ×3 (09:27→18:01)
[2017-02-08] MEDS: DOCUSATE SODIUM 50 MG/SENNA 8.6 MG TAB PO SCH (09:27)
[2017-02-08] MEDS: LIDOCAINE HCL 5% OINT 37 GM TUBE TOPICAL PRN (09:38)
[2017-02-08 10:02] LABS: ALKALINE PHOSPHATASE 106 U/L (45-117); ALT (GPT) 53 U/L (12-78); AST (GOT) 121 U/L (15-37); BLOOD UREA NITROGEN 8 MG/DL (7-18); GLOMERULAR FILTRATION RATE 61 ML/MIN (>89); TOTAL BILIRUBIN ADULT 0.7 MG/DL (0.2-1.0)
[2017-02-08 12:00] VITALS: BP 186/109; PULSE 86; RESP 20; TEMP 97.9; O2SAT 98
[2017-02-08] MEDS ORDERED: PROMETHAZINE INJ 25 MG/ML VIAL IM ONE (12:00)
--- NOTE | 2017-02-08 12:27 | HHI.PR ---
Subjective Remarks Nursing denies any acute setbacks since last night until this morning, when the patient had substantial nausea. Also reports creeping up blood pressures despite home medications being restarted. Patient himself says he feels that he was improving significantly since last night until substantial nausea this morning. Per physical therapy did not want to participate due to the nausea. Patient denies any vision changes in his left eye Objective Vital Signs Date Time Temp Pulse Resp B/P (MAP) Pulse Ox O2 Delivery O2 Flow Rate FiO2 02/08/17 10:43 16 02/08/17 08:00 99.1 76 18 145/91 (109) 98 02/08/17 04:00 97.7 85 18 159/95 (116) 97 02/08/17 00:00 97.9 91 20 172/103 (126) 100 02/07/17 20:00 95.8 83 16 170/100 (123) 99 02/07/17 16:00 97.5 89 20 149/92 (111) 98 I/O 02/07/17 02/07/17 02/07/17 02/08/17 02/08/17 02/08/17 06:59 14:59 22:59 06:59 14:59 22:59 Intake Total 2000 ml 100 ml 780 ml 1386 ml 315 ml Balance 2000 ml 100 ml 780 ml 1386 ml 315 ml Intake Oral 480 ml 480 ml IV Total 2000 ml 100 ml 300 ml 906 ml 315 ml # Voids 1 4 # Bowel Movements 0 0 Result Diagram: 02/08/17 0825 02/08/17 0825 Objective Remarks Lying in bed, no acute distress Rash on head showing further crusting over 4 had left frontal and temporal areas , left eye appears minimally injected Abdomen is showing mild tenderness palpation diffusely, no distention, bowel sounds positive A/P Assessment and Plan Intractable nausea Could be secondary to persistent pain, headache, cyclic vomiting for marijuana use vs c.diff - STILL PERSISTENT - LFTs unremarkable. will consider discontinuing ivfs Advance diet as tolerated Scheduling phenergan. zofran prn. AST tripled today - will consider imaging today Herpes zoster of the forehead Communicated w/ optho - rec'd outpt f/u promptly after discharge. Continue acyclovir continue Neurontin for herpetic neuropathic pain Continue tramadol Lidocaine ointment as needed for facial pain Chronic hypomagnesemia Replace and continue to monitor Acute renal failure superimposed on chronic kidney disease stage III 2/2 dehydration 2/2 n/v - acute component resolving Hypertension Continue home medications Recurrent C. difficile infection Continue tapering home dose of vancomycin DVT prevention starting lovenox Monty Alonzo MD Feb 08, 2017 12:27
[2017-02-08] MEDS ORDERED: PILL SPLITTER OTHER PRN (13:30)
[2017-02-08] MEDS: METOPROLOL TARTRATE 25 MG TAB PO SCH ×2 (13:54→21:46)
[2017-02-08] MEDS: ENOXAPARIN SODIUM 30 MG/0.3 ML SYRINGE SQ SCH (13:54)
[2017-02-08 16:00] VITALS: BP 179/113; PULSE 105; RESP 18; TEMP 98; O2SAT 96
[2017-02-08 20:00] VITALS: BP 157/104; PULSE 88; RESP 20; TEMP 99.9; O2SAT 98
[2017-02-08] MEDS: SODIUM CHLORIDE 0.9% FLUSH 10 ML FLUSH IV FLUSH PRN (22:15)
[2017-02-09] VITALS: BP 164/94; PULSE 86; RESP 20; TEMP 99.6; O2SAT 95
[2017-02-09 04:00] VITALS: BP 164/101; PULSE 70; RESP 20; TEMP 100; O2SAT 96
[2017-02-09] MEDS: ONDANSETRON HCL 4 MG/2 ML VIAL IVP PRN (05:58)
[2017-02-09] MEDS: ACETAMINOPHEN/HYDROcodone 325 MG/10 MG TAB PO PRN ×2 (05:58→10:36)
[2017-02-09] MEDS: SODIUM CHLORIDE 0.9% FLUSH 10 ML FLUSH IV FLUSH PRN (05:58)
[2017-02-09] MEDS: ACYCLOVIR 800 MG TAB PO SCH ×5 (05:59→22:12)
[2017-02-09 06:29] LABS: CHLORIDE 97 MEQ/L (98-107); POTASSIUM 3.5 MEQ/L (3.5-5.1); SODIUM (NA) 132 MEQ/L (136-145)
[2017-02-09 06:33] LABS: ANION GAP 10 MEQ/L (5-15); BICARBONATE 25.5 MEQ/L (21.0-32.0); BLOOD UREA NITROGEN 7 MG/DL (7-18)
[2017-02-09 06:36] LABS: ALT (GPT) 89 U/L (12-78); AST (GOT) 175 U/L (15-37); GLOMERULAR FILTRATION RATE 56 ML/MIN (>89)
[2017-02-09 06:38] LABS: TOTAL BILIRUBIN ADULT 0.4 MG/DL (0.2-1.0)
[2017-02-09 06:39] LABS: ALKALINE PHOSPHATASE 160 U/L (45-117)
[2017-02-09 08:00] VITALS: BP 161/93; PULSE 73; RESP 17; TEMP 97.5; O2SAT 96
[2017-02-09] MEDS: amLODIPine BESYLATE 5 MG TAB PO SCH (08:53)
[2017-02-09] MEDS: LISINOPRIL 20 MG TAB PO SCH (08:53)
[2017-02-09] MEDS: ALPRAZolam 0.5 MG TAB PO SCH ×2 (08:54→22:12)
[2017-02-09] MEDS: VANCOMYCIN 500 MG VIAL (FOR ORAL USE ONLY) PO SCH (08:54)
[2017-02-09] MEDS: METOPROLOL TARTRATE 25 MG TAB PO SCH ×2 (08:54→22:12)
[2017-02-09] MEDS: PANTOPRAZOLE SOD 40 MG DELAYED RELEASE TAB PO SCH (08:54)
[2017-02-09] MEDS: GABAPENTIN 300 MG CAP PO SCH ×2 (08:54→13:24)
[2017-02-09] MEDS: SODIUM CHLORIDE 0.9% FLUSH 10 ML FLUSH IV FLUSH SCH ×2 (08:55→22:12)
[2017-02-09] MEDS: LACTOBACILLUS ACIDOPHILUS 1 GM PACKET PO SCH ×3 (09:00→18:00)
[2017-02-09] MEDS ORDERED: hydrALAZINE HCL 25 MG TAB PO ONE (10:30)
[2017-02-09 12:00] VITALS: BP 123/84; PULSE 96; RESP 18; TEMP 96.8; O2SAT 97
[2017-02-09] MEDS: ENOXAPARIN SODIUM 30 MG/0.3 ML SYRINGE SQ SCH (13:25)
[2017-02-09] MEDS ORDERED: SODIUM CHLOR 0.9% 1000 ML INJ 1,000 ML IV ONE (14:15)
--- NOTE | 2017-02-09 14:20 | HHI.PR ---
Subjective Remarks Nursing denies any acute deterioration since last night. Patient himself says his nausea is much better. PT says that the patient is feeling much better today and participated in evaluation unlike yesterday with the patient did not want to participate at all due to nausea. Patient says his bowel movements are stable, mildly loose, no melissa diarrhea and no frequent bowel movements. Denies any worsening of his chronic abdominal achiness. Feels that his left eye is swollen. Objective Vital Signs Date Time Temp Pulse Resp B/P (MAP) Pulse Ox O2 Delivery O2 Flow Rate FiO2 02/09/17 12:00 96.8 96 18 123/84 (97) 97 02/09/17 08:00 97.5 73 17 161/93 (115) 96 02/09/17 04:00 100.0 70 20 164/101 (122) 96 Manual Cuff/Auscultation 02/09/17 00:00 99.6 86 20 164/94 (117) 95 Automatic Cuff 02/08/17 20:00 99.9 88 20 157/104 (121) 98 02/08/17 18:48 16 02/08/17 16:00 98.0 105 18 179/113 (135) 96 I/O 02/08/17 02/08/17 02/08/17 02/09/17 02/09/17 02/09/17 07:00 15:00 23:00 07:00 15:00 23:00 Intake Total 1386 ml 1146 ml 1400 ml Balance 1386 ml 1146 ml 1400 ml Intake Oral 480 ml 750 ml 1400 ml IV Total 906 ml 396 ml # Voids 4 8 3 # Bowel Movements 0 4 1 Result Diagram: 02/08/17 0825 02/09/17 0530 Objective Remarks Lying in bed, no acute distress Rash on head shows even further crusting over 4 had left frontal and temporal areas, left eye appears minimally injected Abdomen is showing mild tenderness palpation diffusely, no distention, bowel sounds positive A/P Assessment and Plan -Intractable nausea - significantly improved - tolerating po today. Could be secondary to persistent pain, headache, cyclic vomiting for marijuana use vs c.diff Advance diet as tolerated Scheduling Phenergan. Zofran prn. Elevated LFTs new problem - LFTs are rising, we'll obtain GGT and CK levels to see if this is hepatic vs msk. Discussed with GI, trend in a.m. and consider discharge once levels are plateauing per their recommendations. ? if this is medication s/e, stopping all acetaminophen containing products. Last hepatitis panel negative from last year. repeating hep panel. -Herpes zoster of the forehead Communicated w/ optho - rec'd outpt f/u promptly after discharge. Continue acyclovir continue Neurontin for herpetic neuropathic pain Continue tramadol Lidocaine ointment as needed for facial pain -Recurrent C. difficile infection Continue tapering home dose of vancomycin -Chronic hypomagnesemia Replace and continue to monitor - chronic kidney disease stage III avoid nephrotoxins -Hypertension Continue home medications -DVT prevention Monty Mayfield MD Feb 09, 2017 14:20
[2017-02-09 16:00] VITALS: BP 158/82; PULSE 75; RESP 19; TEMP 97.7; O2SAT 98
[2017-02-09 16:11] LABS: CREATINE KINASE 59 U/L (39-308)
[2017-02-09 17:03] LABS: GAMMA GT 318 U/L (15-85)
[2017-02-09] MEDS ORDERED: traMADol HCL 50 MG TAB PO PRN (18:00)
[2017-02-09 20:00] VITALS: BP 157/87; PULSE 84; RESP 18; TEMP 100.5; O2SAT 97
[2017-02-10] VITALS: BP 158/101; PULSE 90; RESP 18; TEMP 100.8; O2SAT 96
[2017-02-10] MEDS ORDERED: guaiFENesin SOLUTION 200 MG/10 ML CUP PO PRN (00:30)
[2017-02-10] MEDS ORDERED: ACETAMINOPHEN 325 MG TAB PO PRN (00:30)
[2017-02-10 04:00] VITALS: BP 146/104; PULSE 74; RESP 18; TEMP 98.9; O2SAT 98
[2017-02-10] MEDS: ACYCLOVIR 800 MG TAB PO SCH ×2 (06:17→09:28)
[2017-02-10 06:56] LABS: INDIRECT BILIRUBIN 0.4 MG/DL (0.0-0.8); TOTAL BILIRUBIN ADULT 0.5 MG/DL (0.2-1.0)
[2017-02-10 07:50] VITALS: BP 146/99; PULSE 84; RESP 20; TEMP 99.5; O2SAT 95
[2017-02-10] MEDS: LACTOBACILLUS ACIDOPHILUS 1 GM PACKET PO SCH (09:00)
[2017-02-10] MEDS: PANTOPRAZOLE SOD 40 MG DELAYED RELEASE TAB PO SCH (09:27)
[2017-02-10] MEDS: METOPROLOL TARTRATE 25 MG TAB PO SCH (09:27)
[2017-02-10] MEDS: ALPRAZolam 0.5 MG TAB PO SCH (09:27)
[2017-02-10] MEDS: VANCOMYCIN 500 MG VIAL (FOR ORAL USE ONLY) PO SCH (09:27)
[2017-02-10] MEDS: LISINOPRIL 20 MG TAB PO SCH (09:27)
[2017-02-10] MEDS: amLODIPine BESYLATE 5 MG TAB PO SCH (09:27)
[2017-02-10] MEDS ORDERED: ACYC800T PO (10:07)
[2017-02-10] MEDS ORDERED: NEUR400C PO (10:07)
[2017-02-10] MEDS ORDERED: LIDO5%T TOPICAL (10:07)
[2017-02-10] MEDS ORDERED: PROM12.54 PO (10:09)
[2017-02-10] MEDS ORDERED: METO25TA3 PO (10:10)
[2017-02-10] MEDS ORDERED: TRAM50TA PO (10:45)
--- NOTE | 2017-02-10 10:49 | HHI.DCPOC ---
Discharge Care Plan Diagnosis: (1) Acute herpes zoster neuropathy (2) Herpes zoster (3) Acute renal failure superimposed on stage 2 chronic kidney disease (4) Clostridium difficile infection (5) Abdominal pain (6) Dehydration Goals to Promote Your Health * To prevent worsening of your condition and complications * To maintain your health at the optimal level Directions to Meet Your Goals Take your medications as prescribed Follow your dietary instruction Follow activity as directed Keep your appointments as scheduled Take your immunizations and boosters as scheduled If your symptoms worsen call your PCP, if no PCP go to Urgent Care Center or Emergency Room Smoking is Dangerous to Your Health. Avoid second hand smoke Call the 24-hour hour crisis hotline for domestic abuse at Monty Alonzo MD Feb 10, 2017 10:49
--- NOTE | 2017-02-10 10:51 | HHI.DS ---
Discharge Summary Admission Date Feb 09, 2017 at 13:03 Discharge Date: Feb 10, 2017 Admitting Diagnosis dehydration, ketosis, hypomagnesemia, intractable vomiting (1) Dehydration ICD Code: E86.0 - Dehydration Diagnosis: Principal Status: Acute (2) Hypomagnesemia ICD Code: E83.42 - Hypomagnesemia Diagnosis: Principal Status: Resolved (3) Herpes zoster ICD Code: B02.9 - Zoster without complications Diagnosis: Principal (4) Nausea & vomiting ICD Code: R11.2 - Nausea and vomiting Diagnosis: Principal Status: Resolved (5) Elevated beta-hydroxybutyrate ICD Code: R78.89 - Finding of other specified substances, not normally found in blood Diagnosis: Principal Status: Acute Procedures none Brief History - From Admission Written by Zane Sutherland, acting as scribe for Dr. Alonzo on 02/07/17 at 13:27. 61 year-old male with known history of chronic neck, chronic back pain , recurrent C. difficile infection, hypertension, gastroesophageal reflux, alcohol abuse, alcohol-related seizures who presented to the hospital because of headache, nausea, vomiting. Patient states that his pain started on Wednesday at 2 AM when he woke up with severe pain over the left side of his forehead. He noticed that he had a rash there and he had an episode of vomiting secondary to the severe pain that he is experiencing. The patient went to the ER on 02/06 and was diagnosed with herpes zoster, patient was discharged home with famciclovir, Percocet. However patient was unable to fill the prescription because it was too late at night. Patient states that the pain was so severe he could not tolerate it. He had persistent nausea, vomiting. Because of those reasons he came back to the ER for reevaluation. Patient had studies performed which did indicate some mild dehydration, chronic hypomagnesemia, elevated beta hydroxybutyrate. Because patient was having severe pain, intractable nausea vomiting, dehydration it was recommended by the ER physician the patient be observed in the hospital for recommendations. Patient does have a rash noted over the left side of his forehead and in his eyebrow and eyelid. He does have some eye pain. However he does not have any pain on movement, visual disturbances. Patient denies any chest pain, fever, chills, hematemesis , melena, hematochezia. CBC/BMP: 02/08/17 0825 02/09/17 0530 Significant Findings Laboratory Tests Test 02/08/17 08:25 02/09/17 05:30 02/09/17 14:21 02/10/17 05:50 Red Blood Count 3.88 MIL/MM3 (4.50-5.90) Hemoglobin 10.8 GM/DL (13.0-17.0) Hematocrit 33.9 % (39.0-51.0) Mean Corpuscular Hemoglobin Concent 31.9 % (32.0-36.0) Red Cell Distribution Width 18.6 % (11.6-17.2) Neutrophils (%) (Auto) 75.2 % (16.0-70.0) Monocytes (%) (Auto) 12.4 % (0.0-8.0) Lymphocytes # (Auto) 0.7 TH/MM3 (1.0-4.8) Random Glucose 109 MG/DL (74-106) Calcium Level 8.4 MG/DL (8.5-10.1) 8.3 MG/DL (8.5-10.1) Aspartate Amino Transf (AST/SGOT) 121 U/L (15-37) 175 U/L (15-37) 50 U/L (15-37) Sodium Level 133 MEQ/L (136-145) 132 MEQ/L (136-145) Chloride Level 96 MEQ/L (98-107) 97 MEQ/L (98-107) Estimat Glomerular Filtration Rate 61 ML/MIN (>89) 56 ML/MIN (>89) Alkaline Phosphatase 160 U/L (45-117) Alanine Aminotransferase (ALT/SGPT) 89 U/L (12-78) Gamma Glutamyl Transpeptidase 318 U/L (15-85) Albumin 3.2 GM/DL (3.4-5.0) PE at Discharge crusting lesions over left forehead and shinto NAD Hospital Course Patient was admitted, started on IV fluids and IV antiemetics as well as treatment for his herpes zoster's neuropathy (shingles outbreak). Patient remained nauseated for the first 24 hours to the point where he did not want to participate in physical therapy. His pain had significantly improved from his shingles outbreak. By the second day his nausea had resolved and his bowel movements remained stable, however his LFTs also began to rise incidentally and spontaneously. They eventually normalized within the next 24 hours; patient did have a fever of 100.8; case was discussed with infectious disease and concluded that this was likely due to shingles outbreak. Patient's overall clinical status had been improving since admission. Patient has met maximum benefit from hospitalization and is clinically stable for discharge. Patient was instructed to follow-up with ophthalmology promptly within 24-48 hours to have his eye exam and further in the clinic setting. Pt Condition on Discharge: Stable Discharge Disposition: Discharge Home Discharge Time: > 30 minutes Discharge Instructions DIET: Follow Instructions for: As Tolerated, No Restrictions Activities you can perform: Regular-No Restrictions Follow up Referrals: Ophthalmology - 02/10/17 with Hellen Kennedy MD PCP Follow-up - 3-5 Days New Medications: Promethazine (Promethazine) 12.5 Mg Tab 12.5 MG PO Q6H PRN for NAUSEA OR VOMITING, #20 TAB 0 Refills Tramadol (Tramadol) 50 Mg Tab 50 MG PO Q8H PRN for PAIN, #15 TAB 0 Refills Gabapentin (Neurontin) 400 Mg Cap 400 MG PO TID for nerve pain, #90 CAP Lidocaine Topical (Lidocaine Topical) 5 % Oint 1 APPLIC TOPICAL TID PRN for RASH/PAIN TO FACE, #1 TUBE DO NOT APPLY DIRECTLY ON EYE Metoprolol Tartrate (Metoprolol Tartrate) 25 Mg Tab 25 MG PO Q12HR for blood pressure, #60 TAB Continued Medications: Acyclovir (Acyclovir) 800 Mg Tab 800 MG PO 5 TIMES A DAY for Mgmt Viral Infection for 7 Days, #35 TAB 0 Refills ( This prescription has been renewed) Alprazolam (Alprazolam) 0.5 Mg Tab 0.5 MG PO BID for ANXIETY, TAB 0 Refills Amlodipine (Amlodipine) 5 Mg Tab 5 MG PO DAILY for Blood Pressure Management, #30 TAB 0 Refills Lactobacillus Acidophilus (Lactobacillus Acidophilus) 1 Pkt 1 PKT PO TID for Nutritional Supplement, #120 PKT 0 Refills Lisinopril (Lisinopril) 20 Mg Tab 20 MG PO DAILY, #30 TAB 0 Refills Pantoprazole (Pantoprazole) 40 Mg Tab 40 MG PO DAILY for Reflux, #30 TAB 0 Refills Vancomycin (Vancomycin) 125 Mg Cap 125 MG PO DIRECTED for Infection for 50 Days, CAP 0 Refills 125 mg po 4x daily x 14 days, then 125 mg po 2x daily x 7 days then,125 mg po 1x daily x 7 days, then 125 mg po every other day x 8 days (4 doses), then 125 mg po every 3 days x 2 weeks (5 doses) Discontinued Medications: Oxycodone-Acetaminophen (Percocet) 5-325 mg Tab 1 TAB PO Q4H PRN for PAIN, #12 TAB 0 Refills Monty Alonzo MD Feb 10, 2017 10:51
[2017-02-10] MEDS ORDERED: GABAPENTIN 400 MG CAP PO SCH (18:30)
== END 2017-02-10 11:38 | disposition home or self-care (01) | DRG 74 ==
LOC: PHED 03:02 → PHEDA 05:20 → PH3B 06:00 → OBSVTOIN 02-09 13:03
PROVIDERS: ADMIT Hospitalist; ATTEND Hospitalist
DX: B02.23 Postherpetic polyneuropathy (principal); N17.9 Acute kidney failure, unspecified; A04.71 Enterocolitis due to Clostridium difficile, recurrent; E88.89 Other specified metabolic disorders; N18.3 Chronic kidney disease, stage 3 (moderate); E83.42 Hypomagnesemia; E86.0 Dehydration; R11.2 Nausea with vomiting, unspecified; I12.9 Hypertensive chronic kidney disease with stage 1 through stage 4 chronic kidney disease, or unspecified chronic kidney disease; H91.92 Unspecified hearing loss, left ear; K21.9 Gastro-esophageal reflux disease without esophagitis; F41.9 Anxiety disorder, unspecified; F12.10 Cannabis abuse, uncomplicated; Z23 Encounter for immunization; Z88.1 Allergy status to other antibiotic agents; Z88.2 Allergy status to sulfonamides; Z88.5 Allergy status to narcotic agent
CPT/HCPCS: 80053; 80074; 80076; 80307; 81001; 82010; 82550; 82977; 83690; 83735; 85025; 90686; 96361; 96372; G0378; G8987-GP; G8988-GP; J1650; J2405; J2550; J3475; J7030; Q2038

== ENCOUNTER 2017-03-16 10:27 | Inpatient (IN) | payer BC ==
[2017-03-16] VITALS (10 sets, daily range): BP systolic 110–163; BP diastolic 79–93; PULSE 84–172; RESP 14–24; TEMP 98–99.8; O2SAT 94–98
[~2017-03-16 10:27] MED LIST changes: -AMLO5TAB2 PO; +LIDO5%T TOPICAL; -LISI-515 PO; +METO25TA3 PO; +NEUR400C PO; +PRED1SUS6 LEFT EYE; +PRED50 PO; +PROM12.54 PO; +TRAM50TA PO; +ZIRG0.15 LEFT EYE
[2017-03-16] MEDS ORDERED: ONDANSETRON HCL 4 MG/2 ML VIAL IV PUSH ONE (10:30)
[2017-03-16] MEDS ORDERED: HYDROmorphone HCL PF 2 MG/ML VIAL IV PUSH ONE ×2 (10:30→13:15)
[2017-03-16] MEDS ORDERED: SODIUM CHLOR 0.9% 1000 ML INJ 1,000 ML IV ONE ×3 (10:30→13:15)
[2017-03-16] MEDS ORDERED: LISI-515 PO (10:34)
[2017-03-16] MEDS ORDERED: AMLO5TAB2 PO (10:34)
[2017-03-16 10:48] LABS: HEMATOCRIT 31.9 % (39.0-51.0); MEAN CELL VOLUME 87.8 FL (80.0-100.0); MEAN CORPUSCULAR HEMOGLOBIN 29.8 PG (27.0-34.0); PLATELET COUNT 324 TH/MM3 (150-450); RED BLOOD COUNT 3.64 MIL/MM3 (4.50-5.90); RED CELL DISTRIBUTION WIDTH 19.9 % (11.6-17.2); WHITE BLOOD COUNT 19.6 TH/MM3 (4.0-11.0)
--- NOTE | 2017-03-16 10:51 | PD ---
HPI Chief Complaint: abdominal pain Time Seen by Provider: 10:29 Travel History International Travel<30 days: No Contact w/Intl Traveler<30days: No Traveled to known affect area: No History of Present Illness HPI This 61-year-old male is complaining of abdominal pain. He says the pain started around 3:00 in the morning on Wednesday. He started having lower abdominal pain and he vomited. He felt a little bit her yesterday but then today he is having increasing pain in his lower abdomen. The pain is bilateral and quite severe. He vomited twice this morning. He's been having loose stools. He has a history of 5 episodes of diverticulitis. He has also been having a lot of going problem C. difficile. He apparently is being considered for a stool transplant. He was noted to have marked tachycardia en route to the hospital and he says he has had this in the past related to dehydration and pain. He denies any chest pain. He does not have any history of heart disease. He has been a heavy drinker in the past and has had trouble with magnesium. He says that most recently he has cut back to occasional drinking. He does say that he drink a fair amount on Wednesday and the pain started after that. 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 ) Asthma: No Autoimmune Disease: No Anxiety: Yes Depression: No Heart Rhythm Problems: No Cancer: No Cardiovascular Problems: Yes (HTN) High Cholesterol: No Chemotherapy: No Chest Pain: No Congestive Heart Failure: No COPD: No Cerebrovascular Accident: No Diabetes: No Diminished Hearing: Yes (L ear ) Diverticulitis: Yes Endocrine: No Gastrointestinal Disorders: Yes (COLONOSCOPY JANUARY 2014) GERD: Yes Genitourinary: No Headaches: No Hiatal Hernia: No Heparin Induced Thrombocytopen: No Hypertension: Yes Immune Disorder: No Implanted Vascular Access Dvce: Yes Kidney Stones: No Musculoskeletal: Yes Neurologic: Yes Psychiatric: Yes Reproductive: No Respiratory: No Immunizations Current: Yes Migraines: No Pancreatitis: Yes Radiation Therapy: No Renal Failure: No Seizures: Yes (IN PAST R/T ALCOHOL WITHDRAWAL 2013) Sickle Cell Disease: No Sleep Apnea: No Thyroid Disease: No Ulcer: No PNEUMOCCOCAL Vaccine (Year): 2 Past Surgical History Abdominal Surgery: No AICD: No Arteriovenous Shunt: No Body Medical Devices: DISSOLVABLE SCREW IN LEFT ANKLE - placed 2014 Cardiac Surgery: No Ear Surgery: No Endocrine Surgery: No Eye Surgery: No Genitourinary Surgery: No Gynecologic Surgery: No Hysterectomy: No Insulin Pump: No Joint Replacement: Yes (L FEMUR BONE 06/2015) Neurologic Surgery: No Oral Surgery: No Pacemaker: No Thoracic Surgery: No Other Surgery: Yes (2 BACK AND ONE NECK SURGERIES-microdiskectomy,left achilles tendon repair) Social History Alcohol Use: Yes (3 TOv4 times a week, states rum) Tobacco Use: No Substance Use: Yes (states smokes marijunana Q3DAYS) Allergies-Medications (Allergen,Severity, Reaction): Coded Allergies: codeine (Verified Allergy, Severe, RASH, 03/16/17) ibuprofen (Verified Allergy, Severe, Swelling, 03/16/17) of eyes levofloxacin (Verified Allergy, Severe, ACHILLES TENDON PROBLEM, 03/16/17) metronidazole (Verified Allergy, Severe, 03/16/17) sulfamethoxazole (Verified Allergy, Severe, Diarrhea, 03/16/17) trimethoprim (Verified Allergy, Severe, Diarrhea, 03/16/17) Reported Meds & Prescriptions Reported Meds & Active Scripts Active Acyclovir 800 Mg Tab 800 Mg PO 5 TIMES A DAY 7 Days Reported Amlodipine (Amlodipine Besylate) 5 Mg Tab 5 Mg PO DAILY Lisinopril 20 Mg Tab 20 Mg PO DAILY Pantoprazole (Pantoprazole Sodium) 40 Mg Tab 40 Mg PO DAILY Alprazolam 0.5 Mg Tab 0.5 Mg PO BID Review of Systems General / Constitutional: No: Fever, Chills Eyes: No: Diploplia, Blurred Vision HENT: No: Headaches, Lightheadedness, Sore Throat Cardiovascular: Positive: Palpitations, Tachycardia Respiratory: No: Cough, Shortness of Breath Gastrointestinal: Positive: Nausea, Vomiting, Diarrhea, Abdominal Pain Genitourinary: No: Urgency, Frequency Musculoskeletal: No: Myalgias, Arthralgias Skin: No Rash, No Itching Neurologic: Positive: Weakness, No: Syncope Psychiatric: Positive: Substance Abuse Endocrine: No: Heat Intolerance Hematologic/Lymphatic: No: Easy Bruising Physical Exam Narrative GENERAL: Well-developed male she'll heart rate is 180 SKIN: Focused skin assessment warm/dry. HEAD: Atraumatic. Normocephalic. EYES: Pupils equal and round. No scleral icterus. No injection or drainage. ENT: No nasal bleeding or discharge. Mucous membranes pink and moist. NECK: Trachea midline. No JVD. CARDIOVASCULAR: Rapid Regular rate and rhythm. No murmur appreciated. RESPIRATORY: No accessory muscle use. Clear to auscultation. Breath sounds equal bilaterally. GASTROINTESTINAL: Abdomen is somewhat diffuse tenderness. It is not rigid. Bowel sounds are diminished MUSCULOSKELETAL: No obvious deformities. No clubbing. No cyanosis. No edema. NEUROLOGICAL: Awake and alert. No obvious cranial nerve deficits. Motor grossly within normal limits. Normal speech. PSYCHIATRIC: Appropriate mood and affect; insight and judgment normal. Data Data Last Documented VS Vital Signs Date Time Temp Pulse Resp B/P (MAP) Pulse Ox O2 Delivery O2 Flow Rate FiO2 03/16/17 10:29 99.8 172 20 111/80 (90) 94 Orders Orders Complete Blood Count With Diff (03/16/17 10:29) Comprehensive Metabolic Panel (03/16/17 10:29) Troponin I (03/16/17 10:29) Urinalysis - C+S If Indicated (03/16/17 10:29) Sodium Chlor 0.9% 1000 Ml Inj (Ns 1000 M (03/16/17 10:30) Ondansetron Inj (Zofran Inj) (03/16/17 10:30) Hydromorphone Pf Inj (Dilaudid Pf Inj) (03/16/17 10:30) Magnesium (Mg) (03/16/17 10:32) Magnesium Sulfate 1 Gm Premix (Magnesium (03/16/17 11:15) Potassium Chlor 10 Meq Premix (Kcl 10 Me (03/16/17 11:15) Ct Abd/Pel W/O Iv Contrast (03/16/17 11:26) Lipase (03/16/17 10:45) Sodium Chlor 0.9% 1000 Ml Inj (Ns 1000 M (03/16/17 12:15) Blood Culture (03/16/17 12:12) Lactic Acid Sepsis Protocol (03/16/17 12:12) Piperacil-Tazo 4.5 Gm Premix (Zosyn 4.5 (03/16/17 13:15) C Diff Toxin Pcr (03/16/17 13:05) Alcohol (Ethanol) (03/16/17 13:05) Drug Screen, Random Urine (03/16/17 13:05) Sodium Chlor 0.9% 1000 Ml Inj (Ns 1000 M (03/16/17 13:15) Hydromorphone Pf Inj (Dilaudid Pf Inj) (03/16/17 13:15) Admit Order (Ed Use Only) (03/16/17 13:08) Labs Laboratory Tests Test 03/16/17 10:45 03/16/17 12:35 White Blood Count 19.6 TH/MM3 Red Blood Count 3.64 MIL/MM3 Hemoglobin 10.8 GM/DL Hematocrit 31.9 % Mean Corpuscular Volume 87.8 FL Mean Corpuscular Hemoglobin 29.8 PG Mean Corpuscular Hemoglobin Concent 34.0 % Red Cell Distribution Width 19.9 % Platelet Count 324 TH/MM3 Mean Platelet Volume 8.0 FL CBC Comment AUTO DIFF Differential Total Cells Counted 100 Neutrophils % (Manual) 90 % Band Neutrophils % 4 % Lymphocytes % 4 % Monocytes % 2 % Neutrophils # (Manual) 18.4 TH/MM3 Differential Comment AUTO DIFF CONFIRMED Platelet Estimate NORMAL Platelet Morphology Comment NORMAL Blood Urea Nitrogen 37 MG/DL Creatinine 2.00 MG/DL Random Glucose 174 MG/DL Total Protein 7.2 GM/DL Albumin 3.1 GM/DL Calcium Level 8.2 MG/DL Alkaline Phosphatase 243 U/L Aspartate Amino Transf (AST/SGOT) 383 U/L Alanine Aminotransferase (ALT/SGPT) 393 U/L Total Bilirubin 6.5 MG/DL Sodium Level 129 MEQ/L Potassium Level 3.3 MEQ/L Chloride Level 92 MEQ/L Carbon Dioxide Level 21.8 MEQ/L Anion Gap 15 MEQ/L Estimat Glomerular Filtration Rate 34 ML/MIN Magnesium Level 0.6 MG/DL Troponin I LESS THAN 0.02 NG/ML Lipase 25212 U/L [facility] Medical Decision Making Medical Screen Exam Complete: Yes Emergency Medical Condition: Yes Medical Record Reviewed: Yes Differential Diagnosis Differential includes dehydration, diverticulitis, C. difficile Narrative Course His total bilirubin is 6.5 with AST of 383. His lipase is markedly elevated at 25,937. Magnesium is 0.6. His potassium is 3.2. Hemoglobin 10.8 with a white count of 19.6 which 90% polys 4% bands. CT scan of the abdomen and pelvis was obtained without contrast because of a elevated creatinine. It shows uncomplicated colonic diverticulosis, stable diffuse urinary bladder wall thickening enlarged prostate. The pancreas apparently appears within normal limits. His creatinine today is 2.0 which is higher than it usually is. Patient has been given IV hydration and pain medication. He has been given an initial dose of Zosyn. He'll be transferred to the [facility] to the intensive care unit. Diagnosis acute pancreatitis, electrolyte imbalance, tachycardia, acute kidney injury. Case discussed with Dr. Healy. Diagnosis Primary Impression: Acute pancreatitis Qualified Codes: K85.20 - Alcohol induced acute pancreatitis without necrosis or infection Additional Impressions: Hypomagnesemia Acute kidney injury Admitting Information Admitting Physician Requests: Admit Sukh Muñoz MD Mar 16, 2017 10:51
[2017-03-16 10:54] LABS: HEMO FLAGS AUTO DIFF
[2017-03-16 10:58] LABS: CHLORIDE 92 MEQ/L (98-107); POTASSIUM 3.3 MEQ/L (3.5-5.1); SODIUM (NA) 129 MEQ/L (136-145)
[2017-03-16 11:02] LABS: ANION GAP 15 MEQ/L (5-15); BICARBONATE 21.8 MEQ/L (21.0-32.0); BLOOD UREA NITROGEN 37 MG/DL (7-18)
[2017-03-16 11:05] LABS: ALT (GPT) 393 U/L (12-78); AST (GOT) 383 U/L (15-37); GLOMERULAR FILTRATION RATE 34 ML/MIN (>89)
[2017-03-16 11:07] LABS: TOTAL BILIRUBIN ADULT 6.5 MG/DL (0.2-1.0)
[2017-03-16 11:08] LABS: ALKALINE PHOSPHATASE 243 U/L (45-117)
[2017-03-16] MEDS ORDERED: MAGNESIUM SULFATE 1 GM PREMIX 100 ML IV ONE (11:15)
[2017-03-16] MEDS ORDERED: POTASSIUM CHLOR 10 MEQ PREMIX 100 ML IV ONE (11:15)
[2017-03-16 11:49] LABS: BANDS 4 % (0-6); NEUTROPHIL # MANUAL DIFF 18.4 TH/MM3 (1.8-7.7); POLYS (SEG NEUTROPHILS) 90 % (16-70)
[2017-03-16 11:50] LABS: PLATELET ESTIMATE SMEAR NORMAL (NORMAL); PLATELET MORPHOLOGY NORMAL (NORMAL); SCAN/DIFF AUTO DIFF CONFIRMED; WBC DIFF SAMPLE 100
--- NOTE | 2017-03-16 12:40 | RADRPT ---
EXAM DATE/TIME: 03/16/2017 12:08 [facility] COMPARISON: CT ABDOMEN & PELVIS W/O CONTRAST, January 03, 2017, 18:59. CT ABDOMEN & PELVIS W/O CONTRAST, Bl[place] 2016, 16:56. INDICATIONS : Lower abdominal pain, nausea and vomiting. ORAL CONTRAST: No oral contrast ingested. RADIATION DOSE: 8.45 CTDIvol (mGy) ; Patient motion MEDICAL HISTORY : Pancreatitis. Diverticulitis. Gastroesophageal reflux disease.Seizures. Hypertension. SURGICAL HISTORY : Left hip replacement. ENCOUNTER: Initial ACUITY: 2 days PAIN SCALE: 7/10 LOCATION: Bilateral lower quadrant TECHNIQUE: Volumetric scanning of the abdomen and pelvis was performed. Using automated exposure control and ad justment of the mA and/or kV according to patient size, radiation dose was kept as low as reasonably achievable to obtain optimal diagnostic quality images. DICOM format image data is available electro nically for review and comparison. FINDINGS: LOWER LUNGS: There is stable chronic scarring within the lingula of the left upper lobe. LIVER: Homogeneous density without lesion. There is no dilation of the biliary tree. No calcified gallston es. SPLEEN: Normal size without lesion. PANCREAS: Within normal limits. KIDNEYS: Normal in size and shape. There is no solid mass, stone, or hydronephrosis. There is a 17 mm low lef t renal cyst. Chronic perinephric streakiness is noted bilaterally. ADRENAL GLANDS: Within normal limits. VASCULAR: There is no aortic aneurysm. BOWEL/MESENTERY: Scattered uncomplicated diverticula are noted within the colon. No acute diverticulitis is noted. ABDOMINAL WALL: Within normal limits. RETROPERITONEUM: There is no lymphadenopathy. BLADDER: Stable diffuse urinary bladder wall thickening is again noted. REPRODUCTIVE: The prostate remains enlarged. INGUINAL: There is no lymphadenopathy or hernia. MUSCULOSKELETAL: Degenerative changes and scoliosis of the thoracolumbar spine are noted. Chronic mild compression def ormity involving T11 is stable. Left hip replacement is stable. CONCLUSION: 1. Uncomplicated colonic diverticulosis. 2. Stable diffuse urinary bladder wall thickening is noted. 3. Degenerative changes and scoliosis of the thoracolumbar spine. 4. Enlarged prostate. 5. Stable lower pole left renal cyst measuring 17 mm. 6. Chronic stable perinephric streakiness bilaterally. 7. Chronic scarring within the lingula of the left upper lobe. Nilesh Simms MD on March 16, 2017 at 12:30 Board Certified Radiologist. This report was verified electronically.
[2017-03-16] MEDS ORDERED: PIPERACIL-TAZO 4.5 GM PREMIX 100 ML IV ONE (13:15)
[2017-03-16] MEDS ORDERED: BISACODYL 10 MG SUPP RECTAL PRN (16:45)
[2017-03-16] MEDS ORDERED: MISCELLANEOUS NURSING INFORMATION XX SCH (16:45)
[2017-03-16] MEDS ORDERED: SENNOSIDES 8.6 MG TAB PO PRN (16:45)
[2017-03-16] MEDS ORDERED: MORPHINE SULFATE 4 MG/ML INJ IV PUSH PRN (16:45)
[2017-03-16] MEDS ORDERED: MAGNESIUM HYDROXIDE SUSP 30 ML CUP PO PRN (16:45)
[2017-03-16] MEDS ORDERED: MAGNESIUM SULFATE INJ 4 GM in SODIUM CHLORIDE 0.9% INJ 92 ML IV PRN (16:45)
[2017-03-16] MEDS ORDERED: POTASSIUM PHOSPHATE MONOBASIC 500 MG TAB PO PRN (16:45)
[2017-03-16] MEDS ORDERED: LACTULOSE SYRUP 20 GM/30 ML CUP PO PRN (16:45)
[2017-03-16] MEDS ORDERED: POTASSIUM CHLOR 40 MEQ PREMIX 100 ML IV PRN ×2 (16:45)
[2017-03-16] MEDS ORDERED: POTASSIUM PHOSPHATE INJ 30 MMOL in SODIUM CHLOR 0.9% 250 ML INJ 250 ML IV PRN (16:45)
[2017-03-16] MEDS ORDERED: CHLORHEXIDINE GLUCONATE 2 % 1 PACK (2 CLOTHS) TOP PRN (16:45)
[2017-03-16] MEDS ORDERED: MAGNESIUM SULFATE INJ 2 GM in SODIUM CHLORIDE 0.9% INJ 96 ML IV PRN (16:45)
[2017-03-16] MEDS ORDERED: RESP: ALBUTEROL 2.5 MG/IPRATROPIUM 0.5 MG NEB (PRN) INH (16:45)
[2017-03-16] MEDS ORDERED: SODIUM CHLORIDE 0.9% FLUSH 10 ML FLUSH IV FLUSH PRN (16:45)
[2017-03-16] MEDS ORDERED: MAGNESIUM OXIDE 400 MG TAB PO PRN (16:45)
[2017-03-16] MEDS ORDERED: SODIUM PHOSPHATE INJ 30 MMOL in SODIUM CHLOR 0.9% 250 ML INJ 240 ML IV PRN (16:45)
[2017-03-16] MEDS ORDERED: POTASSIUM CHLORIDE 25 MEQ EFFERVESCENT TAB PO PRN (16:45)
[2017-03-16] MEDS ORDERED: POTASSIUM PHOSPHATE MONOBASIC 500 MG TAB PO/TUBE PRN (16:45)
[2017-03-16] MEDS ORDERED: ONDANSETRON HCL 4 MG/2 ML VIAL IV PUSH PRN (16:45)
[2017-03-16] MEDS: SODIUM CHLOR 0.9% 1000 ML INJ 1,000 ML IV SCH ×2 (16:59→22:00)
[2017-03-16] MEDS ORDERED: GLUCAGON 1 MG/ML VIAL OTHER PRN (17:00)
[2017-03-16] MEDS: INSULIN ASPART SUPPLEMENTAL SCALE SQ SCH ×2 (17:00→21:00)
--- NOTE | 2017-03-16 17:30 | HHI.HP ---
[facility] Critical Care Medicine Primary Care Physician Yamil Collado, DO Admission Diagnosis ACUTE PANCREATITIS, HYPOMAGNESEMIA, SHAVONNE, TACHYCARDIA Diagnosis: Travel History International Travel<30 Days: No Contact w/Intl Traveler <30 Da: No Traveled to Known Affected Are: No History of Present Illness This 61-year-old male that presented to [facility] with complaints of abdominal pain. The patient reported that the pain started around 3:00 am 03/14. The patient had been drinking at an [employer] lasting over several days. Upon initiation of lower abdominal pain , he began having progressive nausea and vomiting with escalation of abdominal pain. He also reported having frequent bouts of diarrhea. The patient's medical history significant for previous episodes of diverticulitis. He previously has been diagnosed with C. difficile. He reported to the ED physician that he has being considered for a stool transplant. He was noted to have marked tachycardia en route to the hospital and on arrival to [facility] heart rate 170's. Patient admits to a history of being a heavy drinker. He has had previous bouts of pancreatitis in the past couple years. The patient's medical history is also significant for 6 weeks ago having herpes zoster affecting his left eye , and has completed medication regimen. Imaging and laboratory studies were performed and revealed elevated lipase level as well as hypomagnesemia with a magnesium level initially of 0.6, he received 2 g of magnesium at that time and was bolused with 2 L normal saline. The patient was transported to [facility]. Critical care medicine is consulted. 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 ) Asthma: No Autoimmune Disease: No Anxiety: Yes Depression: No Heart Rhythm Problems: No Cancer: No Cardiovascular Problems: Yes (HTN) High Cholesterol: No Chemotherapy: No Chest Pain: No Congestive Heart Failure: No COPD: No Cerebrovascular Accident: No Diabetes: No Diminished Hearing: Yes (L ear ) Diverticulitis: Yes Endocrine: No Gastrointestinal Disorders: Yes (COLONOSCOPY JANUARY 2014) GERD: Yes Genitourinary: No Headaches: No Hiatal Hernia: No Heparin Induced Thrombocytopen: No Hypertension: Yes Immune Disorder: No Implanted Vascular Access Dvce: Yes Kidney Stones: No Musculoskeletal: Yes Neurologic: Yes Psychiatric: Yes Reproductive: No Respiratory: No Immunizations Current: Yes Migraines: No Pancreatitis: Yes Radiation Therapy: No Renal Failure: No Seizures: Yes (IN PAST R/T ALCOHOL WITHDRAWAL 2013) Sickle Cell Disease: No Sleep Apnea: No Thyroid Disease: No Ulcer: No PNEUMOCCOCAL Vaccine (Year): 2 Past Surgical History Abdominal Surgery: No AICD: No Arteriovenous Shunt: No Body Medical Devices: DISSOLVABLE SCREW IN LEFT ANKLE - placed 2014 Cardiac Surgery: No Ear Surgery: No Endocrine Surgery: No Eye Surgery: No Genitourinary Surgery: No Gynecologic Surgery: No Hysterectomy: No Insulin Pump: No Joint Replacement: Yes (L FEMUR BONE 06/2015) Neurologic Surgery: No Oral Surgery: No Pacemaker: No Thoracic Surgery: No Other Surgery: Yes (2 BACK AND ONE NECK SURGERIES-microdiskectomy,left achilles tendon repair) Social History Alcohol Use: Yes (3 TOv4 times a week, states rum) Tobacco Use: No Substance Use: Yes ([facility] smokes marijunana Q3DAYS) Allergies-Medications Allergies-Medications (Allergen,Severity, Reaction): Coded Allergies: codeine (Verified Allergy, Severe, RASH, 03/16/17) ibuprofen (Verified Allergy, Severe, Swelling, 03/16/17) of eyes levofloxacin (Verified Allergy, Severe, ACHILLES TENDON PROBLEM, 03/16/17) metronidazole (Verified Allergy, Severe, 03/16/17) sulfamethoxazole (Verified Allergy, Severe, Diarrhea, 03/16/17) trimethoprim (Verified Allergy, Severe, Diarrhea, 03/16/17) Reported Meds & Prescriptions Reported Meds & Active Scripts Active Acyclovir 800 Mg Tab 800 Mg PO 5 TIMES A DAY 7 Days Reported Amlodipine (Amlodipine Besylate) 5 Mg Tab 5 Mg PO DAILY Lisinopril 20 Mg Tab 20 Mg PO DAILY Pantoprazole (Pantoprazole Sodium) 40 Mg Tab 40 Mg PO DAILY Alprazolam 0.5 Mg Tab 0.5 Mg PO BID ROS Review of Systems General / Constitutional: No: Fever, Chills Eyes: No: Diploplia, Blurred Vision HENT: No: Headaches, Lightheadedness, Sore Throat Cardiovascular: Positive: Palpitations, Tachycardia Respiratory: No: Cough, Shortness of Breath Gastrointestinal: Positive: Nausea, Vomiting, Diarrhea, Abdominal Pain Genitourinary: No: Urgency, Frequency Musculoskeletal: No: Myalgias, Arthralgias Skin: No Rash, No Itching Neurologic: Positive: Weakness, No: Syncope Psychiatric: Positive: Substance Abuse Endocrine: No: Heat Intolerance Hematologic/Lymphatic: No: Easy Bruising Physical Exam Vital Signs Vital Signs Date Time Temp Pulse Resp B/P (MAP) Pulse Ox O2 Delivery O2 Flow Rate FiO2 03/16/17 15:16 03/16/17 15:05 115 16 115/84 (94) 98 Room Air 03/16/17 14:00 98.4 115 16 118/82 (94) 98 Room Air 03/16/17 12:35 123 19 110/79 (89) 98 Room Air 03/16/17 11:50 146 17 133/90 (104) 98 Nasal Cannula 2.00 03/16/17 10:29 99.8 172 20 111/80 (90) 94 Physical Exam BP 130/85 pulse 108 story rate 13 O2 saturation 99% on room air GENERAL: Well-developed well-nourished appropriately stated age male in moderate distress with complaints of abdominal pain SKIN: Warm and dry. HEAD: Atraumatic. Normocephalic. Healed scarring on forehead and nasal bridge from herpes zoster EYES: Pupils equal and round, 3 mm and brisk. No scleral icterus. EOMI. No injection or drainage. ENT: No nasal bleeding or discharge. Mucous membranes pink and moist. NECK: Trachea midline. No JVD. Uvula midline CARDIOVASCULAR: Tachycardic rate, regular rhythm. Telemetry heart rate 108 RESPIRATORY: No accessory muscle use. Clear to auscultation. Breath sounds equal bilaterally. Bilateral chest excursion. No wheezing GASTROINTESTINAL: Abdomen soft, non-tender, nondistended. No guarding. Normoactive bowel sounds. MUSCULOSKELETAL: Extremities without clubbing, cyanosis, or edema. No obvious deformities. NEUROLOGICAL: Awake and alert. RASS 0. No gross focal/sensory deficits. Follows commands in all 4 extremities. Laboratory Laboratory Tests Test 03/16/17 10:45 03/16/17 12:35 White Blood Count 19.6 Red Blood Count 3.64 Hemoglobin 10.8 Hematocrit 31.9 Mean Corpuscular Volume 87.8 Mean Corpuscular Hemoglobin 29.8 Mean Corpuscular Hemoglobin Concent 34.0 Red Cell Distribution Width 19.9 Platelet Count 324 Mean Platelet Volume 8.0 CBC Comment AUTO DIFF Differential Total Cells Counted 100 Neutrophils % (Manual) 90 Band Neutrophils % 4 Lymphocytes % 4 Monocytes % 2 Neutrophils # (Manual) 18.4 Differential Comment AUTO DIFF CONFIRMED Platelet Estimate NORMAL Platelet Morphology Comment NORMAL Blood Urea Nitrogen 37 Creatinine 2.00 Random Glucose 174 Total Protein 7.2 Albumin 3.1 Calcium Level 8.2 Alkaline Phosphatase 243 Aspartate Amino Transf (AST/SGOT) 383 Alanine Aminotransferase (ALT/SGPT) 393 Total Bilirubin 6.5 Sodium Level 129 Potassium Level 3.3 Chloride Level 92 Carbon Dioxide Level 21.8 Anion Gap 15 Estimat Glomerular Filtration Rate 34 Magnesium Level 0.6 Troponin I LESS THAN 0.02 Lipase 98314 Ethyl Alcohol Level LESS THAN 3 Lactic Acid Level 1.9 Date/Time Source Procedure Growth Status 03/16/17 12:30 Blood Peripheral Aerobic Blood Culture Pending Received 03/16/17 12:30 Blood Peripheral Anaerobic Blood Culture Pending Received Result Diagram: 03/16/17 1045 03/16/17 1045 Imaging Last Impressions Abdomen/Pelvis CT 03/16/17 1126 Signed Impressions: Service Date/Time: Thursday, March 16, 2017 12:08 - CONCLUSION: 1. Uncomplicated colonic diverticulosis. 2. Stable diffuse urinary bladder wall thickening is noted. 3. Degenerative changes and scoliosis of the thoracolumbar spine. 4. Enlarged prostate. 5. Stable lower pole left renal cyst measuring 17 mm. 6. Chronic stable perinephric streakiness bilaterally. 7. Chronic scarring within the lingula of the left upper lobe. Nilesh Simms MD Septic Shock Reassessment Heart: Other (sinus tachycardia) Lungs: Clear Skin: Warm Peripheral Pulses: Bounding Right Radial Bounding Left Radial Bounding Right Dorsalis Pedis Bounding Left Dorsalis Pedis Capillary Refill: Brisk, <2 seconds Caprini VTE Risk Assessment Caprini VTE Risk Assessment: Mod/High Risk (score >= 2) Caprini Risk Assessment Model Point Value = 1 Point Value = 2 Point Value = 3 Point Value = 5 Age 41-60 Minor surgery BMI > 25 kg/m2 Swollen legs Varicose veins or History of unexplained or recurrent spontaneous Oral contraceptives or hormone replacement Sepsis (< 1 month) Serious lung disease, including pneumonia (< 1 month) Abnormal pulmonary function Acute myocardial infarction Congestive heart failure (< 1 month) History of inflammatory bowel disease Medical patient at bed rest Age 61-74 Arthroscopic surgery Major open surgery (> 45 min) Laparoscopic surgery (> 45 min) Malignancy Confined to bed (> 72 hours) Immobilizing plaster cast Central venous access Age >= 75 History of VTE Family history of VTE Factor V Leiden Prothrombin [id number] Lupus anticoagulant Anticardiolipin antibodies Elevated serum homocysteine Heparin-induced thrombocytopenia Other congenital or acquired thrombophilia Stroke (< 1 month) Elective arthroplasty Hip, pelvis, or leg fracture Acute spinal cord injury (< 1 month) Prophylaxis Regimen Total Risk Factor Score Risk Level Prophylaxis Regimen 0-1 Low Early ambulation 2 Moderate Order ONE of the following: *Sequential Compression Device (SCD) *Heparin 5000 units SQ BID 3-4 Higher Order ONE of the following medications: *Heparin 5000 units SQ TID *Enoxaparin/Lovenox 40 mg SQ daily (WT < 150 kg, CrCl > 30 mL/min) *Enoxaparin/Lovenox 30 mg SQ daily (WT < 150 kg, CrCl > 10-29 mL/min) *Enoxaparin/Lovenox 30 mg SQ BID (WT < 150 kg, CrCl > 30 mL/min) AND/OR *Sequential Compression Device (SCD) 5 or more Highest Order ONE of the following medications: *Heparin 5000 units SQ TID (Preferred with Epidurals) *Enoxaparin/Lovenox 40 mg SQ daily (WT < 150 kg, CrCl > 30 mL/min) *Enoxaparin/Lovenox 30 mg SQ daily (WT < 150 kg, CrCl > 10-29 mL/min) *Enoxaparin/Lovenox 30 mg SQ BID (WT < 150 kg, CrCl > 30 mL/min) AND *Sequential Compression Device (SCD) Assessment and Plan Problem List: (1) Gastritis ICD Code: K29.70 - Gastritis Status: Acute (2) GERD (gastroesophageal reflux disease) ICD Code: K21.9 - GERD (gastroesophageal reflux disease) Status: Acute (3) Anemia ICD Code: D64.9 - Anemia Status: Acute (4) Hypokalemia ICD Code: E87.6 - Hypokalemia Status: Acute (5) Alcohol withdrawal ICD Code: F10.239 - Alcohol dependence with withdrawal, unspecified Status: Acute (6) Elevated lipase ICD Code: R74.8 - Abnormal levels of other serum enzymes Status: Acute (7) Alcohol abuse ICD Code: F10.10 - Alcohol abuse, uncomplicated Status: Acute (8) SHAVONNE (acute kidney injury) ICD Code: N17.9 - Acute kidney failure, unspecified Status: Resolved (9) Hyperglycemia ICD Code: R73.9 - Hyperglycemia, unspecified Status: Acute (10) Leucocytosis ICD Code: D72.829 - Leukocytosis Status: Acute (11) Hyponatremia ICD Code: E87.1 - Hypo-osmolality and hyponatremia Status: Acute (12) Dehydration ICD Code: E86.0 - Dehydration Status: Acute (13) Nausea & vomiting ICD Code: R11.2 - Nausea and vomiting Status: Resolved (14) Herpes zoster ICD Code: B02.9 - Zoster without complications (15) Hypomagnesemia ICD Code: E83.42 - Hypomagnesemia Status: Resolved (16) Acute pancreatitis ICD Code: K85.90 - Acute pancreatitis without necrosis or infection, unspecified Status: Acute Assessment and Plan Assessment This is a 61-year-old male with a long history of chronic alcohol abuse, any history of multiple episodes of pancreatitis, with now with acute pancreatitis, lipase level greater than 28,000, SHAVONNE with dehydration, diarrhea with a recent history of C. difficile. Admit to ICU. Assessment Acute pancreatitis Abdominal pain SHAVONNE Dehydration Hypomagnesemia Hyponatremia Hyperglycemia Elevated transaminases Hyperglycemia History of C. difficile EtOH abuse H/O seizure in the past Plan Neurologic: Neurochecks per ICU protocol Monitor for signs of alcohol withdrawal Seizure precautions Ativan 2 mg every 4 hours when necessary for agitation/anxiety Dilaudid and morphine IV PRN for pain scale 6-10 Consider topical lidocaine for forehead and facial area of previous herpes zoster Respiratory: Obtain O2 sat greater than 92% Consider supplemental O2 via nasal cannula 1-4 lpm Bronchodilators every 4 hours PRN for wheezing Cardiovascular: Maintain MAP > 65 Initial troponin< 0.02 Telemetry-sinus tachycardia Renal: Insert Fuentes -- Strict I/Os FEN/GI: Initiate normal saline 200 cc/hour Maintain NPO status 03/16 CT abdomen/pelvis- left renal cyst, colonic diverticulosis without diverticulitis, enlarged prostate, noted compression deformity of T11, pancreas within normal limits, no calcified gallstones Zofran for nausea Monitor CMP and lipase levels-initial lipase 28,937, AST 383, ALT 393, alkaline phosphatase 243 Replete electrolytes per ICU protocol Initial mag level 0.6, received 2 g of magnesium and [place] ED, follow-up magnesium level Heme/ID: Obtain C. difficile PCR Follow-up blood cultures Monitor CBC Patient received Zosyn 1 dose and port [place] ED Endocrine: Glucose monitoring every hour with low-dose insulin regimen -- SSI Prophylaxis: GI Prophylaxis Protonix DVT Prophylaxis -- SCDs Heparin 5000u every 12 hours Lines: IVs providing adequate access at this time. Central line if indicated Dispo: This patient remains critically ill with one or more organ systems which are or may become a threat to life. I have spent in excess of 47 minutes discontinuously in the care and management of this patient. This time is exclusive of procedures, and includes, but is not limited to, evaluation of the patient, review of the medical record, discussions with family, consultants, nursing staff, or respiratory therapy, and documentation in the medical record. Code Status Full Discussed Condition With Patient and PAPER PRODUCTS PRINTER at bedside Problem Qualifiers (1) Acute pancreatitis: Qualified Codes: K85.20 - Alcohol induced acute pancreatitis without necrosis or infection Valeria Aj MD Mar 16, 2017 17:30
[2017-03-16] MEDS ORDERED: LORazepam 2 MG/ML VIAL IV PUSH PRN (17:45)
[2017-03-16] MEDS: HEPARIN SODIUM - SQ 10,000 UNITS/ML VIAL SQ SCH (17:53)
[2017-03-16] MEDS: HYDROmorphone HCL PF 1 MG/ML VIAL IV PUSH PRN ×2 (18:48→23:57)
[2017-03-16] MEDS: DOCUSATE SODIUM 50 MG/SENNA 8.6 MG TAB PO SCH (20:59)
[2017-03-16] MEDS: SODIUM CHLORIDE 0.9% FLUSH 10 ML FLUSH IV FLUSH SCH (20:59)
[2017-03-17] VITALS (26 sets, daily range): BP systolic 149–194; BP diastolic 72–113; PULSE 76–110; RESP 13–36; TEMP 98–98.5; O2SAT 84–100
[2017-03-17 00:34] LABS: BLOOD, URINE SMALL (NEG); COMMENT (UR) CULT NOT INDICATED; CULTURE IF INDICATED CULT NOT INDICATED; GLUCOSE,URINE NEG (NEG); KETONE, URINE NEG (NEG); NITRITE,URINE NEG (NEG); PH, URINE 5.5 (5.0-8.5); URINE COLOR YELLOW (YELLW/STRAW)
[2017-03-17 01:52] LABS: C. DIFF EPI 027 PRESUMPTIVE NEGATIVE (NEGATIVE)
[2017-03-17 02:26] LABS: AUTOMATED NEUTROPHIL # 10.9 TH/MM3 (1.8-7.7); BASOPHIL % 0.1 % (0.0-2.0); EOSINOPHIL # 0.1 TH/MM3 (0-0.4); EOSINOPHIL % 0.8 % (0.0-4.0); HEMATOCRIT 25.8 % (39.0-51.0); HEMO FLAGS DIFF FINAL; LYMPH % 8.7 % (9.0-44.0); LYMPHOCYTE # 1.1 TH/MM3 (1.0-4.8); MEAN CELL VOLUME 92.1 FL (80.0-100.0); MEAN CORPUSCULAR HEMOGLOBIN 30.5 PG (27.0-34.0); MEAN CORPUSCULAR HGB CONC 33.1 % (32.0-36.0); MONO % 5.5 % (0.0-8.0); NEUT % 84.9 % (16.0-70.0); PLATELET COUNT 208 TH/MM3 (150-450); RED CELL DISTRIBUTION WIDTH 20.5 % (11.6-17.2); WHITE BLOOD COUNT 12.8 TH/MM3 (4.0-11.0)
[2017-03-17 02:49] LABS: BICARBONATE 21.6 MEQ/L (21.0-32.0); POTASSIUM 3.5 MEQ/L (3.5-5.1)
[2017-03-17 02:50] LABS: CALCIUM-PROTEIN CORRECTED 7.7 MG/DL (8.5-10.1); TOTAL BILIRUBIN ADULT 3.8 MG/DL (0.2-1.0)
[2017-03-17] MEDS: SODIUM CHLOR 0.9% 1000 ML INJ 1,000 ML IV SCH ×2 (03:00→11:14)
[2017-03-17] MEDS: CHLORHEXIDINE GLUCONATE 2 % 1 PACK (2 CLOTHS) TOP SCH (04:00)
[2017-03-17] MEDS: HEPARIN SODIUM - SQ 10,000 UNITS/ML VIAL SQ SCH ×2 (06:59→17:30)
[2017-03-17] MEDS: INSULIN ASPART SUPPLEMENTAL SCALE SQ SCH ×4 (08:00→20:11)
[2017-03-17] MEDS: SODIUM CHLORIDE 0.9% FLUSH 10 ML FLUSH IV FLUSH SCH ×2 (08:12→20:14)
[2017-03-17] MEDS: PANTOPRAZOLE SODIUM 40 MG VIAL IV PUSH SCH (08:12)
[2017-03-17] MEDS: DOCUSATE SODIUM 50 MG/SENNA 8.6 MG TAB PO SCH ×2 (08:12→20:15)
[2017-03-17] MEDS: HYDROmorphone HCL PF 1 MG/ML VIAL IV PUSH PRN ×3 (08:28→20:20)
--- NOTE | 2017-03-17 09:51 | HHI.CCPN ---
Subjective Remarks/Hospital Course This 61-year-old male that presented to [facility] with complaints of abdominal pain. The patient reported that the pain started around 3:00 am 03/14. The patient had been drinking at an [employer] lasting over several days. Upon initiation of lower abdominal pain , he began having progressive nausea and vomiting with escalation of abdominal pain. He also reported having frequent bouts of diarrhea. The patient's medical history significant for previous episodes of diverticulitis. He previously has been diagnosed with C. difficile. He reported to the ED physician that he has being considered for a stool transplant. He was noted to have marked tachycardia en route to the hospital and on arrival to [facility] heart rate 170's. Patient admits to a history of being a heavy drinker. He has had previous bouts of pancreatitis in the past couple years. The patient's medical history is also significant for 6 weeks ago having herpes zoster affecting his left eye , and has completed medication regimen. Imaging and laboratory studies were performed and revealed elevated lipase level as well as hypomagnesemia with a magnesium level initially of 0.6, he received 2 g of magnesium at that time and was bolused with 2 L normal saline. The patient was transported to [facility]. Critical care medicine is consulted. Subjective: 03/17: Afebrile. Overnight no bouts of nausea, pace level significantly downtrending .C. difficile PCR positive, and gram-negative bacteremia. Patient was noted to have the sixth episode of C. difficile in the last 4 years. She was scheduled for fecal transplant this week, Dr. 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 ID has been consulted. The patient was placed on vancomycin PO. The patient has an allergy to Flagyl, unsure if true allergy, he states he gets nauseated and vomits. No anaphylactoid/anaphylaxis type of reactions or hemodynamic instability consumption. The patient noted his first 2 episodes of C. difficile he did have combined therapy with vancomycin and Flagyl without difficulty. The patient complained of irritation in the area of the left for head/and left eye from his recent diagnosis of herpes zoster. Patient previously on gabapentin 600mg TID will resume. Objective Vital Signs Date Time Temp Pulse Resp B/P (MAP) Pulse Ox O2 Delivery O2 Flow Rate FiO2 03/17/17 06:00 88 03/17/17 05:00 98.1 20 149/72 (97) 96 03/16/17 15:05 Room Air 03/16/17 11:50 2.00 Intake and Output 03/17/17 03/17/17 03/18/17 08:00 16:00 00:00 Intake Total 2203 ml Output Total 375 ml Balance 1828 ml Result Diagram: 03/17/17 0153 03/17/17 0153 Imaging Last Impressions Abdomen/Pelvis CT 03/16/17 1126 Signed Impressions: Service Date/Time: Thursday, March 16, 2017 12:08 - CONCLUSION: 1. Uncomplicated colonic diverticulosis. 2. Stable diffuse urinary bladder wall thickening is noted. 3. Degenerative changes and scoliosis of the thoracolumbar spine. 4. Enlarged prostate. 5. Stable lower pole left renal cyst measuring 17 mm. 6. Chronic stable perinephric streakiness bilaterally. 7. Chronic scarring within the lingula of the left upper lobe. Nilesh Simms MD Objective Remarks BP 154/68 pulse 88 RR 16 O2 saturation 99% on room air GENERAL: Well-developed well-nourished appropriately stated age male in no acute distress SKIN: Warm and dry. HEAD: Atraumatic. Normocephalic. Well healed scarring on forehead and nasal bridge from herpes zoster EYES: Pupils equal and round, 3 mm and brisk. No scleral icterus. EOMI. No injection or drainage. ENT: No nasal bleeding or discharge. Mucous membranes pink and moist. NECK: Trachea midline. No JVD. Uvula midline CARDIOVASCULAR: Tachycardic rate, regular rhythm. Telemetry heart rate 88 RESPIRATORY: No accessory muscle use. Clear to auscultation. Breath sounds equal bilaterally. Bilateral chest excursion. No wheezing GASTROINTESTINAL: Abdomen soft, non-tender, nondistended. No guarding. Normoactive bowel sounds. MUSCULOSKELETAL: Extremities without clubbing, cyanosis, or edema. No obvious deformities. NEUROLOGICAL: Awake and alert. RASS 0. No gross focal/sensory deficits. Follows commands in all 4 extremities. A/P Problem List: (1) Gastritis ICD Code: K29.70 - Gastritis Status: Acute (2) GERD (gastroesophageal reflux disease) ICD Code: K21.9 - GERD (gastroesophageal reflux disease) Status: Acute (3) Anemia ICD Code: D64.9 - Anemia Status: Acute (4) Hypokalemia ICD Code: E87.6 - Hypokalemia Status: Acute (5) Alcohol withdrawal ICD Code: F10.239 - Alcohol dependence with withdrawal, unspecified Status: Acute (6) Elevated lipase ICD Code: R74.8 - Abnormal levels of other serum enzymes Status: Acute (7) Alcohol abuse ICD Code: F10.10 - Alcohol abuse, uncomplicated Status: Acute (8) SHAVONNE (acute kidney injury) ICD Code: N17.9 - Acute kidney failure, unspecified Status: Resolved (9) Hyperglycemia ICD Code: R73.9 - Hyperglycemia, unspecified Status: Acute (10) Leucocytosis ICD Code: D72.829 - Leukocytosis Status: Acute (11) Hyponatremia ICD Code: E87.1 - Hypo-osmolality and hyponatremia Status: Acute (12) Dehydration ICD Code: E86.0 - Dehydration Status: Acute (13) Nausea & vomiting ICD Code: R11.2 - Nausea and vomiting Status: Resolved (14) Herpes zoster ICD Code: B02.9 - Zoster without complications (15) Hypomagnesemia ICD Code: E83.42 - Hypomagnesemia Status: Resolved (16) Acute pancreatitis ICD Code: K85.90 - Acute pancreatitis without necrosis or infection, unspecified Status: Acute Assessment and Plan Assessment This is a 61-year-old male with a long history of chronic alcohol abuse, any history of multiple episodes of pancreatitis, with now with acute pancreatitis, lipase level greater than 28,000, SHAVONNE with dehydration, diarrhea with a recent history of C. difficile. Admit to ICU. Assessment Acute pancreatitis Abdominal pain SHAVONNE Dehydration Hypomagnesemia Hyponatremia-resolved Hypocalcemia Hyperglycemia Elevated transaminases Leukocytosis Hyperglycemia Recurrent C. difficile colitis EtOH abuse H/O seizure in the past Plan Neurologic: Neurochecks per ICU protocol Monitor for signs of alcohol withdrawal Seizure precautions Ativan 2 mg every 4 hours when necessary for agitation/anxiety Dilaudid and morphine IV PRN for pain scale 6-10 Consider topical lidocaine for forehead and facial area of previous herpes zoster Begin MVI, thiamine, folate IV Respiratory: Obtain O2 sat greater than 92% Consider supplemental O2 via nasal cannula 1-4 lpm Bronchodilators every 4 hours PRN for wheezing Cardiovascular: Maintain MAP > 65 Initial troponin< 0.02 Telemetry-sinus rhythm Renal: No Fuentes -- Strict I/Os FEN/GI: Continue normal saline 125 cc/hour Maintain NPO status 03/16 CT abdomen/pelvis- left renal cyst, colonic diverticulosis without diverticulitis, enlarged prostate, noted compression deformity of T11, pancreas within normal limits, no calcified gallstones Zofran for nausea Monitor CMP and lipase levels, downtrending- Lipase 28,937->1205, AST 383->172, ALT 393->272, alkaline phosphatase 243->171 Replete electrolytes per ICU protocol Magnesium level I.0-repleted with 4 g of magnesium Calcium gluconate 2 g IV now Heme/ID: C. difficile [id number] started on vancomycin 250 mg 4 times a day, patient states allergy to Flagyl, (side effect) -this is the sixth occurrence in 4 years per patient report ID consulted blood cultures-random negative rods Monitor CBC Patient received Zosyn 1 dose and port [place] ED Atrezonam. 2 g every 8 hours Endocrine: Glucose monitoring every hour with low-dose insulin regimen -- SSI Prophylaxis: GI Prophylaxis Protonix DVT Prophylaxis -- SCDs Heparin 5000u every 12 hours Lines: IVs providing adequate access at this time. Central line if indicated Dispo: This patient remains critically ill with one or more organ systems which are or may become a threat to life. I have spent in excess of 39 minutes discontinuously in the care and management of this patient. This time is exclusive of procedures, and includes, but is not limited to, evaluation of the patient, review of the medical record, discussions with family, consultants, nursing staff, or respiratory therapy, and documentation in the medical record. Physician Valeria Aj Problem Qualifiers (1) Acute pancreatitis: Qualified Codes: K85.20 - Alcohol induced acute pancreatitis without necrosis or infection Valeria Aj MD Mar 17, 2017 09:51
[2017-03-17] MEDS ORDERED: OXYC1TAB63 (10:52)
[2017-03-17] MEDS ORDERED: PROM12.54 PO (10:52)
[2017-03-17] MEDS ORDERED: AMLO5TAB2 PO (10:53)
[2017-03-17] MEDS ORDERED: GABA600T PO (10:53)
[2017-03-17] MEDS ORDERED: LISI-515 PO (10:53)
[2017-03-17] MEDS ORDERED: ALPR.5 PO (10:54)
[2017-03-17] MEDS ORDERED: TRIAPOW EXTERNAL (10:59)
[2017-03-17] MEDS ORDERED: PRED50 PO (10:59)
[2017-03-17] MEDS ORDERED: AZTREONAM INJ 2,000 MG in SODIUM CHLORIDE 0.9% INJ 100 ML IV SCH (11:00)
--- NOTE | 2017-03-17 11:00 | EKG ---
Date Performed: 03/16/2017 Time Performed: 10:26:07 PTAGE: 61 years EKG: SUPRAVENTRICULAR TACHYCARDIA NONSPECIFIC T-WAVE ABNORMALITY ABNORMAL RHYTHM ECG PREVIOUS TRACING : 12/09/2016 20.45 DOCTOR: Ronald Sharma Interpretating Date/Time 03/17/2017 11:00:16
[2017-03-17] MEDS: VANCOMYCIN 500 MG VIAL (FOR ORAL USE ONLY) PO SCH ×3 (11:13→20:12)
[2017-03-17] MEDS: POTASSIUM CHLOR 20 MEQ PREMIX 100 ML IV PRN ×2 (11:13→13:41)
[2017-03-17] MEDS ORDERED: CALCIUM GLUCONATE INJ 2 GM in SODIUM CHLORIDE 0.9% INJ 100 ML IV ONE (12:00)
[2017-03-17] MEDS: DEXTROSE 50% IN WATER 50 ML VIAL(D50) IV PUSH PRN ×2 (12:37→17:29)
[2017-03-17] MEDS: AZTREONAM INJ 2,000 MG in SODIUM CHLORIDE 0.9% INJ 100 ML IV SCH ×2 (12:37→20:13)
--- NOTE | 2017-03-17 12:52 | PD.ID.CON ---
History of Present Illness Service ID Consult Requested By Reason for Consult Evaluation and MMent of Gram negative bacteremia and recurrent Cdiff colitis. Primary Care Physician Yamil Collado, Diagnoses: History of Present Illness is a 61-year-old male who presented to [facility] with complaints of abdominal pain. The patient reported that the pain started around 3:00 am 03/14. The patient had been drinking at a binging alliance party lasting over several days. Upon initiation of lower abdominal pain , he began having progressive nausea and vomiting with escalation of abdominal pain. He also reported having frequent bouts of diarrhea. The patient's medical history significant for previous episodes of diverticulitis. He also reports one other episode of pancreatitis approx 10 yrs back after binge drinking after his divorce. Patient reports this is his 6th episode of Cdiff positive diarrhea. He reports he was being considered for fecal transplantation as outpatient. With this background he reports he was admitted at [facility]. He was noted to have marked tachycardia en route to the hospital and on arrival to [facility] heart rate 170's. The patient's medical history is also significant for 6 weeks ago having herpes zoster affecting his left eye, and has completed medication regimen. Imaging and laboratory studies were performed and revealed elevated lipase level as well as hypomagnesemia with a magnesium level initially of 0.6, he received 2 g of magnesium at that time and was bolused with 2 L normal saline. The patient was transported to [facility]. Critical care medicine wqs consulted. At the time of my evaluation, patient is in the ICU. Awake, not on pressors, provided me history. UO good. Diarrhea 3 episodes liquid stool. ID consulted for eval and MMent of Sepsis, gram negative bacteremia and recurrent Cdiff colitis. Review of Systems ROS Limitations: Poor Historian Constitutional: DENIES: Diaphoretic episodes, Fatigue, Fever, Weight gain, Weight loss, Chills, Dizziness, Change in appetite, Night Sweats Endocrine: DENIES: Heat/cold intolerance, Polydipsia, Polyuria, Polyphagia Eyes: DENIES: Blurred vision, Diplopia, Eye inflammation, Eye pain, Vision loss , Photosensitivity, Double Vision Ears, nose, mouth, throat: DENIES: Tinnitus, Hearing loss, Vertigo, Nasal discharge, Oral lesions, Throat pain, Hoarseness, Ear Pain, Running Nose, Epistaxis, Sinus Pain, Toothache, Odynophagia Respiratory: DENIES: Apneas, Cough, Snoring, Wheezing, Hemoptysis, Sputum production, Shortness of breath Cardiovascular: DENIES: Chest pain, Palpitations, Syncope, Dyspnea on Exertion , PND, Lower Extremity Edema, Orthopnea, Claudication Gastrointestinal: COMPLAINS OF: Abdominal pain, Diarrhea, Nausea, Vomiting, DENIES: Black stools, Bloody stools, Constipation, Difficulty Swallowing, Anorexia Genitourinary: DENIES: Sexual dysfunction, Urinary frequency, Urinary incontinence, Urgency, Hematuria, Dysuria, Nocturia, Penile Discharge, Testicular Pain, Testicular Swelling Musculoskeletal: DENIES: Joint pain, Muscle aches, Stiffness, Joint Swelling, Back pain, Neck pain Integumentary: DENIES: Abnormal pigmentation, Nail changes, Pruritus, Rash Hematologic/lymphatic: DENIES: Bruising, Lymphadenopathy Immunologic/allergic: DENIES: Eczema, Urticaria Neurologic: DENIES: Abnormal gait, Headache, Localized weakness, Paresthesias, Seizures, Speech Problems, Tremor, Poor Balance Psychiatric: DENIES: Anxiety, Confusion, Mood changes, Depression, Hallucinations, Agitation, Suicidal Ideation, Homicidal Ideation, Delusions Except as stated in HPI: all other systems reviewed are Neg Past Family Social History Allergies: Coded Allergies: codeine (Verified Allergy, Severe, RASH, 03/16/17) ibuprofen (Verified Allergy, Severe, Swelling, 03/16/17) of eyes levofloxacin (Verified Allergy, Severe, ACHILLES TENDON PROBLEM, 03/16/17) metronidazole (Verified Allergy, Severe, 03/16/17) sulfamethoxazole (Verified Allergy, Severe, Diarrhea, 03/16/17) trimethoprim (Verified Allergy, Severe, Diarrhea, 03/16/17) Past Medical History Hypertension History of diverticulitis GERD Arthritis History of pancreatitis Recurrent clostridium difficile Past Surgical History Rectal surgery Left-sided chest tube Back surgery 2 Neck surgery Left Achilles tendon surgery Left hip hemiarthroplasty Reported Medications Reported Meds & Active Scripts Active Acyclovir 800 Mg Tab 800 Mg PO 5 TIMES A DAY 7 Days Reported Prednisone 50 Mg Tab 50 Mg PO DAILY Triamcinolone Acetonide (Triamcinolone Acetonide (Topic) 100 % Pow 0.1 % EXTERNAL TID Xanax (Alprazolam) 0.5 Mg Tab 0.5 Mg PO Q12HR PRN Amlodipine (Amlodipine Besylate) 5 Mg Tab 5 Mg PO DAILY Lisinopril 20 Mg Tab 20 Mg PO DAILY Gabapentin 600 Mg Tab 600 Mg PO TID Oxycodone-Acetaminophen 5-325 (Oxycodone HCl/Acetaminophen) 5 Mg-325 Mg Tablet Q6HR PRN Promethazine (Promethazine HCl) 12.5 Mg Tab 12.5 Mg PO Q4H Amlodipine (Amlodipine Besylate) 5 Mg Tab 5 Mg PO DAILY Lisinopril 20 Mg Tab 20 Mg PO DAILY Pantoprazole (Pantoprazole Sodium) 40 Mg Tab 40 Mg PO DAILY Alprazolam 0.5 Mg Tab 0.5 Mg PO BID Active Ordered Medications Current Medications Medications (Trade) Dose Ordered Sig/Quin Route Start Time Stop Time Status Last Admin (NS Flush) 2 ml UNSCH PRN IV FLUSH 03/16/17 16:45 (NS Flush) 2 ml BID IV FLUSH 03/16/17 21:00 03/17/17 08:12 (Morphine Inj) 2 mg Q2H PRN IV PUSH 03/16/17 16:45 (Dilaudid Pf Inj) 1 mg Q4H PRN IV PUSH 03/16/17 16:45 03/17/17 12:21 (Protonix Inj) 40 mg DAILY IV PUSH 03/17/17 09:00 03/17/17 08:12 (Zofran Inj) 4 mg Q6H PRN IV PUSH 03/16/17 16:45 (Duoneb Neb) 1 ampule Q4HR NEB PRN INH 03/16/17 16:45 (Heparin Inj) 5,000 units Q12H SQ 03/16/17 18:00 03/17/17 17:30 Miscellaneous Information 1 Q361D XX 03/16/17 16:45 (Chlorhexidine 2% Cloth) 3 pack Taper DAILY@04 TOP 03/17/17 04:00 03/13/18 03:59 (Chlorhexidine 2% Cloth) 3 pack UNSCH PRN TOP 03/16/17 16:45 (Liz-Colace) 1 tab BID PO 03/16/17 21:00 03/16/17 20:59 (Milk Of Magnesia Liq) 30 ml Q12H PRN PO 03/16/17 16:45 (Senokot) 17.2 mg Q12H PRN PO 03/16/17 16:45 (Dulcolax Supp) 10 mg DAILY PRN RECTAL 03/16/17 16:45 (Lactulose Liq) 30 ml DAILY PRN PO 03/16/17 16:45 Potassium Chloride 100 ml @ 50 mls/hr Q2H PRN IV 03/16/17 16:45 Potassium Chloride 100 ml @ 50 mls/hr Q2H PRN IV 03/16/17 16:45 (K-Lyte Cl Eff) 50 meq UNSCH PRN PO 03/16/17 16:45 Potassium Chloride 100 ml @ 25 mls/hr UNSCH PRN IV 03/16/17 16:45 Potassium Chloride 100 ml @ 50 mls/hr Q2H PRN IV 03/16/17 16:45 03/17/17 13:41 Magnesium Sulfate 4 gm/Sodium Chloride 100 ml @ 50 mls/hr UNSCH PRN IV 03/16/17 16:45 03/17/17 04:02 (Mag-Ox) 800 mg UNSCH PRN PO 03/16/17 16:45 Magnesium Sulfate 2 gm/Sodium Chloride 100 ml @ 50 mls/hr UNSCH PRN IV 03/16/17 16:45 (K-Phos) 2,000 mg Q4H PRN PO 03/16/17 16:45 Sodium Phosphate 30 mmol/Sodium Chloride 250 ml @ 42 mls/hr UNSCH PRN IV 03/16/17 16:45 (K-Phos) 2,000 mg UNSCH PRN PO/TUBE 03/16/17 16:45 Potassium Phosphate 30 mmol/ Sodium Chloride 260 ml @ 42 mls/hr UNSCH PRN IV 03/16/17 16:45 (D50w (Vial) Inj) 50 ml UNSCH PRN IV PUSH 03/16/17 17:00 03/17/17 17:29 (Glucagon Inj) 1 mg UNSCH PRN OTHER 03/16/17 17:00 (NovoLOG SUPPLEMENTAL SCALE) 1 ACHS SLIDING SCALE SQ 03/16/17 17:00 (VANCOMYCIN for oral use only) 250 mg QID PO 03/17/17 13:00 03/17/17 17:29 Multivitamins 10 ml/Folic Acid 1 mg/Sodium Chloride 510.2 ml @ 125 mls/hr Q24H IV 03/17/17 12:00 03/22/17 11:59 03/17/17 17:12 Thiamine HCl 100 mg/Sodium Chloride 101 ml @ 100 mls/hr Q24H IV 03/17/17 12:00 03/20/17 11:59 03/17/17 16:06 Aztreonam 2000 mg/ Sodium Chloride 100 ml @ 200 mls/hr Q8H IV 03/17/17 12:00 03/17/17 12:37 (Neurontin) 400 mg TID PO 03/17/17 18:00 03/17/17 17:30 (Lopressor Inj) 2.5 mg Q6H PRN IV PUSH 03/17/17 16:15 03/17/17 17:12 (Lopressor) 25 mg Q8HR PO 03/17/17 22:00 (Romazicon Inj) 0.2 mg Q1M PRN IV PUSH 03/17/17 16:30 (Ativan) 1 mg Q4H PRN PO 03/17/17 16:30 (Ativan Inj) 1 mg Q4H PRN IV PUSH 03/17/17 16:30 (Ativan) 2 mg Q2H PRN PO 03/17/17 16:30 (Ativan Inj) 2 mg Q2H PRN IV PUSH 03/17/17 16:30 (Ativan Inj) 2 mg Q1H PRN IV PUSH 03/17/17 16:30 (Ativan Inj) 2 mg Q15M PRN IV PUSH 03/17/17 16:30 Dextrose 1,000 ml @ 30 mls/hr Q24H IV 03/17/17 17:45 Family History reviewed and NC to current ID problems. Social History Drinks ETOH Smoke marijuana on occasions Denies smoking Physical Exam Vital Signs Vital Signs Date Time Temp Pulse Resp B/P (MAP) Pulse Ox O2 Delivery O2 Flow Rate FiO2 03/17/17 12:00 98.2 83 18 170/97 (121) 85 03/17/17 11:00 81 28 160/89 (112) 84 03/17/17 10:00 79 16 158/93 (114) 93 03/17/17 09:33 82 21 159/91 (113) 86 03/17/17 09:00 83 14 88 03/17/17 08:00 98.2 81 15 154/93 (113) 100 03/17/17 07:00 83 13 151/91 (111) 99 03/17/17 06:00 88 03/17/17 05:00 98.1 84 20 149/72 (97) 96 03/17/17 04:00 84 03/17/17 02:00 86 03/17/17 00:00 90 03/17/17 00:00 98.2 90 20 152/91 (111) 100 03/16/17 22:00 84 03/16/17 20:00 97 03/16/17 20:00 98.0 102 20 163/93 (116) 97 03/16/17 19:00 87 03/16/17 19:00 98.4 87 14 95 03/16/17 18:00 91 24 97 03/16/17 18:00 91 03/16/17 16:00 104 03/16/17 15:16 03/16/17 15:05 115 16 115/84 (94) 98 Room Air 03/16/17 14:00 98.4 115 16 118/82 (94) 98 Room Air Physical Exam GENERAL: This is a well-nourished, well-developed patient, in no apparent distress. SKIN: No rashes, ecchymoses or lesions. Cool and dry. HEAD: Atraumatic. Normocephalic. No temporal or scalp tenderness. EYES: Pupils equal round and reactive. Extraocular motions intact. No scleral icterus. No injection or drainage. ENT: Nose without bleeding, purulent drainage or septal hematoma. Throat without erythema, tonsillar hypertrophy or exudate. Uvula midline. Airway patent. NECK: Trachea midline. Supple, nontender, no meningeal signs. CARDIOVASCULAR: Regular rate and rhythm without murmurs, gallops, or rubs. RESPIRATORY: Clear to auscultation. Breath sounds equal bilaterally. No wheezes , rales, or rhonchi. GASTROINTESTINAL: Abdomen soft, diffuse tenderness. MUSCULOSKELETAL: Extremities without clubbing, cyanosis, or edema. No joint tenderness, effusion, or edema noted. No calf tenderness. Negative Homans sign bilaterally. NEUROLOGICAL: Awake and alert. Cranial nerves II through XII intact. Motor and sensory grossly within normal limits. Five out of 5 muscle strength in all muscle groups. Normal speech. Psych cooperative IV line sites with no e.o infection. Laboratory Laboratory Tests Test 03/16/17 16:00 03/16/17 23:10 03/17/17 01:53 Nasal Screen MRSA (PCR) MRSA NOT DETECTED Urine Color YELLOW Urine Turbidity CLEAR Urine pH 5.5 Urine Specific Rarden 1.016 Urine Protein 30 Urine Glucose (UA) NEG Urine Ketones NEG Urine Occult Blood SMALL Urine Nitrite NEG Urine Bilirubin SMALL Urine Urobilinogen LESS THAN 2.0 Urine Leukocyte Esterase NEG Urine RBC LESS THAN 1 Urine WBC 1 Microscopic Urinalysis Comment CULT NOT INDICATED Stool C. difficile Toxin (PCR) POSITIVE Stl C. difficile Toxin Epiderm 027 PRESUMPTIVE NEGATIVE Urine Opiates Screen NEG Urine Barbiturates Screen NEG Urine Amphetamines Screen NEG Urine Benzodiazepines Screen POS Urine Cocaine Screen NEG Urine Cannabinoids Screen POS White Blood Count 12.8 Red Blood Count 2.80 Hemoglobin 8.6 Hematocrit 25.8 Mean Corpuscular Volume 92.1 Mean Corpuscular Hemoglobin 30.5 Mean Corpuscular Hemoglobin Concent 33.1 Red Cell Distribution Width 20.5 Platelet Count 208 Mean Platelet Volume 8.4 Neutrophils (%) (Auto) 84.9 Lymphocytes (%) (Auto) 8.7 Monocytes (%) (Auto) 5.5 Eosinophils (%) (Auto) 0.8 Basophils (%) (Auto) 0.1 Neutrophils # (Auto) 10.9 Lymphocytes # (Auto) 1.1 Monocytes # (Auto) 0.7 Eosinophils # (Auto) 0.1 Basophils # (Auto) 0.0 CBC Comment DIFF FINAL Differential Comment Blood Urea Nitrogen 34 Creatinine 1.56 Random Glucose 74 Total Protein 5.8 Albumin 2.5 Calcium Level 7.0 Phosphorus Level 2.8 Magnesium Level 1.0 Alkaline Phosphatase 171 Aspartate Amino Transf (AST/SGOT) 172 Alanine Aminotransferase (ALT/SGPT) 272 Total Bilirubin 3.8 Sodium Level 137 Potassium Level 3.5 Chloride Level 105 Carbon Dioxide Level 21.6 Anion Gap 10 Estimat Glomerular Filtration Rate 45 Protein Corrected Calcium 7.7 Lipase 1205 Date/Time Source Procedure Growth Status 03/16/17 12:30 Blood Peripheral Aerobic Blood Culture - Preliminary NO GROWTH IN 1 DAY Resulted 03/16/17 12:30 Anaerobic Blood Culture - Preliminary Klebsiella Pneumoniae Resulted Result Diagram: 03/17/17 0153 03/17/17 0153 Imaging Last Impressions Abdomen/Pelvis CT 03/16/17 1126 Signed Impressions: Service Date/Time: Thursday, March 16, 2017 12:08 - CONCLUSION: 1. Uncomplicated colonic diverticulosis. 2. Stable diffuse urinary bladder wall thickening is noted. 3. Degenerative changes and scoliosis of the thoracolumbar spine. 4. Enlarged prostate. 5. Stable lower pole left renal cyst measuring 17 mm. 6. Chronic stable perinephric streakiness bilaterally. 7. Chronic scarring within the lingula of the left upper lobe. Nilesh Simms MD Assessment and Plan Assessment and Plan Sepsis present on admission Kleb pneumo bacteremia ? abd source Cdiff positive diarrhea/colitis Recurrent Cdiff Acute pancreatitis Acute renal failure: sepsis, prerenal Abnormal liver function tests: sepsis, alcoholism related. Recs Continue Azactam for today. If LFTs continue to trend up will switch antibiotics. Continue oral Vanco. ? Component of Pancreatitis induced diarrhea Follow cultures and susceptibility to decide further workup and ABX plan. Follow clinically Shraddha austin and [email or web address].jorge Ayoub. Matilda Henderson MD Mar 17, 2017 12:52
[2017-03-17] MEDS ORDERED: GABAPENTIN 300 MG CAP PO SCH (14:00)
[2017-03-17] MEDS: THIAMINE INJ 100 MG in SODIUM CHLORIDE 0.9% INJ 100 ML IV SCH (16:06)
[2017-03-17] MEDS ORDERED: METOPROLOL TARTRATE 5 MG/5 ML VIAL IV PUSH PRN (16:15)
[2017-03-17] MEDS ORDERED: FLUMAZENIL 0.5 MG/5 ML VIAL IV PUSH PRN (16:30)
[2017-03-17] MEDS ORDERED: LORazepam 1 MG TAB PO PRN (16:30)
[2017-03-17] MEDS ORDERED: LORazepam 2 MG/ML VIAL IV PUSH PRN ×3 (16:30)
[2017-03-17] MEDS ORDERED: LORazepam 2 MG TAB PO PRN (16:30)
[2017-03-17] MEDS: MULTIVITAMIN INJ 10 ML, FOLIC ACID INJ 1 MG in SODIUM CHLORID 0.9% 500 ML INJ 500 ML IV SCH (17:12)
[2017-03-17] MEDS: GABAPENTIN 400 MG CAP PO SCH (17:30)
[2017-03-17] MEDS ORDERED: DEXTROSE 10% INJ 1,000 ML IV SCH (17:45)
[2017-03-17] MEDS ORDERED: DEXTROSE 10% INJ 500 ML IV SCH (18:45)
[2017-03-17] MEDS: METOPROLOL TARTRATE 25 MG TAB PO SCH (21:54)
[2017-03-17] MEDS: LORazepam 2 MG/ML VIAL IV PUSH PRN (23:02)
[2017-03-18] VITALS (39 sets, daily range): BP systolic 96–211; BP diastolic 63–113; PULSE 62–106; RESP 18–36; TEMP 97.5–99.2; O2SAT 86–100
[2017-03-18] MEDS ORDERED: HALOPERIDOL LACTATE 5 MG/ML AMP IM SCH ×2 (03:15→05:30)
[2017-03-18] MEDS: AZTREONAM INJ 2,000 MG in SODIUM CHLORIDE 0.9% INJ 100 ML IV SCH ×3 (04:00→21:44)
[2017-03-18] MEDS: CHLORHEXIDINE GLUCONATE 2 % 1 PACK (2 CLOTHS) TOP SCH (04:00)
[2017-03-18 05:22] LABS: AUTOMATED NEUTROPHIL # 5.6 TH/MM3 (1.8-7.7); BASOPHIL % 0.5 % (0.0-2.0); EOSINOPHIL # 0.2 TH/MM3 (0-0.4); EOSINOPHIL % 2.3 % (0.0-4.0); HEMATOCRIT 26.4 % (39.0-51.0); LYMPH % 10.1 % (9.0-44.0); LYMPHOCYTE # 0.7 TH/MM3 (1.0-4.8); MEAN CELL VOLUME 91.9 FL (80.0-100.0); MEAN CORPUSCULAR HEMOGLOBIN 31.1 PG (27.0-34.0); MEAN CORPUSCULAR HGB CONC 33.8 % (32.0-36.0); MONO % 10.5 % (0.0-8.0); NEUT % 76.6 % (16.0-70.0); PLATELET COUNT 190 TH/MM3 (150-450); RED BLOOD COUNT 2.87 MIL/MM3 (4.50-5.90); RED CELL DISTRIBUTION WIDTH 20.7 % (11.6-17.2); WHITE BLOOD COUNT 7.4 TH/MM3 (4.0-11.0)
[2017-03-18 05:26] LABS: HEMO FLAGS AUTO DIFF
[2017-03-18] MEDS ORDERED: LORazepam 2 MG/ML VIAL IM SCH (06:00)
[2017-03-18] MEDS: METOPROLOL TARTRATE 25 MG TAB PO SCH ×3 (06:00→21:44)
[2017-03-18] MEDS: HEPARIN SODIUM - SQ 10,000 UNITS/ML VIAL SQ SCH ×2 (06:00→18:06)
[2017-03-18 06:01] LABS: ALKALINE PHOSPHATASE 157 U/L (45-117); ALT (GPT) 196 U/L (12-78); ANION GAP 12 MEQ/L (5-15); AST (GOT) 65 U/L (15-37); BICARBONATE 19.1 MEQ/L (21.0-32.0); BLOOD UREA NITROGEN 17 MG/DL (7-18); CHLORIDE 103 MEQ/L (98-107); GLOMERULAR FILTRATION RATE 83 ML/MIN (>89); MAGNESIUM 1.2 MG/DL (1.5-2.5); SODIUM (NA) 134 MEQ/L (136-145); TOTAL BILIRUBIN ADULT 1.2 MG/DL (0.2-1.0)
[2017-03-18 06:13] LABS: POTASSIUM 2.9 MEQ/L (3.5-5.1)
[2017-03-18 06:19] LABS: SCAN/DIFF AUTO DIFF CONFIRMED
[2017-03-18] MEDS: INSULIN ASPART SUPPLEMENTAL SCALE SQ SCH ×4 (08:00→21:00)
[2017-03-18] MEDS: POTASSIUM CHLOR 20 MEQ PREMIX 100 ML IV PRN ×2 (08:19→17:54)
[2017-03-18] MEDS: GABAPENTIN 400 MG CAP PO SCH ×3 (08:21→18:06)
[2017-03-18] MEDS: DOCUSATE SODIUM 50 MG/SENNA 8.6 MG TAB PO SCH ×2 (08:21→21:00)
[2017-03-18] MEDS: VANCOMYCIN 500 MG VIAL (FOR ORAL USE ONLY) PO SCH ×4 (08:21→21:44)
[2017-03-18] MEDS: PANTOPRAZOLE SODIUM 40 MG VIAL IV PUSH SCH (08:22)
[2017-03-18] MEDS: SODIUM CHLORIDE 0.9% FLUSH 10 ML FLUSH IV FLUSH SCH ×2 (08:22→21:44)
[2017-03-18] MEDS ORDERED: chlordiazePOXIDE 25 MG CAP PO PRN (08:45)
[2017-03-18] MEDS ORDERED: POTASSIUM CHLORIDE 25 MEQ EFFERVESCENT TAB PO ONE (09:00)
--- NOTE | 2017-03-18 09:16 | HHI.CCPN ---
Subjective Remarks/Hospital Course This 61-year-old male that presented to [facility] with complaints of abdominal pain. The patient reported that the pain started around 3:00 am 03/14. The patient had been drinking at an expansive green party lasting over several days. Upon initiation of lower abdominal pain , he began having progressive nausea and vomiting with escalation of abdominal pain. He also reported having frequent bouts of diarrhea. The patient's medical history significant for previous episodes of diverticulitis. He previously has been diagnosed with C. difficile. He reported to the ED physician that he has being considered for a stool transplant. He was noted to have marked tachycardia en route to the hospital and on arrival to [facility] heart rate 170's. Patient admits to a history of being a heavy drinker. He has had previous bouts of pancreatitis in the past couple years. The patient's medical history is also significant for 6 weeks ago having herpes zoster affecting his left eye , and has completed medication regimen. Imaging and laboratory studies were performed and revealed elevated lipase level as well as hypomagnesemia with a magnesium level initially of 0.6, he received 2 g of magnesium at that time and was bolused with 2 L normal saline. The patient was transported to [facility]. Critical care medicine is consulted. Subjective: 03/17: Afebrile. Overnight no bouts of nausea, pace level significantly downtrending .C. difficile PCR positive, and gram-negative bacteremia. Patient was noted to have the sixth episode of C. difficile in the last 4 years. She was scheduled for fecal transplant this week, Dr. Cook is patient's workers compensation specialist. ID has been consulted. The patient was placed on vancomycin PO. The patient has an allergy to Flagyl, unsure if true allergy, he states he gets nauseated and vomits. No anaphylactoid/anaphylaxis type of reactions or hemodynamic instability consumption. The patient noted his first 2 episodes of C. difficile he did have combined therapy with vancomycin and Flagyl without difficulty. The patient complained of irritation in the area of the left for head/and left eye from his recent diagnosis of herpes zoster. Patient previously on gabapentin 600mg TID will resume. 03/18: Overnight the patient went into delirium tremens despite being on CIWA protocol. The patient removed all IV access devices and required Haldol and Ativan IM, and was placed in 4 point restraints. The patient this morning is lethargic, easily arousable and answering questions, currently alert to name only. Lipase now within normal limits, formal swallow study pending with plans for initiating a clear liquid diet, if tolerated. Blood cultures resulted in Klebsiella, patient currently on antibiotic therapy ID, Dr. Henderson following. Objective Vital Signs Date Time Temp Pulse Resp B/P (MAP) Pulse Ox O2 Delivery O2 Flow Rate FiO2 03/18/17 08:50 96 Nasal Cannula 3.00 03/18/17 06:00 97 03/18/17 06:00 99.1 20 170/103 (125) 03/17/17 21:03 21 Intake and Output 03/18/17 03/18/17 03/19/17 08:00 16:00 00:00 Output Total 350 ml Balance -350 ml Result Diagram: 03/18/17 0415 03/18/17 0415 Imaging Last Impressions Abdomen/Pelvis CT 03/16/17 1126 Signed Impressions: Service Date/Time: Thursday, March 16, 2017 12:08 - CONCLUSION: 1. Uncomplicated colonic diverticulosis. 2. Stable diffuse urinary bladder wall thickening is noted. 3. Degenerative changes and scoliosis of the thoracolumbar spine. 4. Enlarged prostate. 5. Stable lower pole left renal cyst measuring 17 mm. 6. Chronic stable perinephric streakiness bilaterally. 7. Chronic scarring within the lingula of the left upper lobe. Nilesh Simms MD Objective Remarks GENERAL: Well-developed well-nourished appropriately stated age male , currently somnelent, but arousable SKIN: Warm and dry. Multiple ecchymosis and petechial bruising bilateral extremities noted. Noted open abrasions, skin tears right wrist HEAD: Atraumatic. Normocephalic. Well healed scarring on forehead and nasal bridge from herpes zoster EYES: Pupils equal and round, 3 mm and brisk. No scleral icterus. EOMI. No injection or drainage. ENT: No nasal bleeding or discharge. Mucous membranes pink and moist. NECK: Trachea midline. No JVD. CARDIOVASCULAR: Normal rate, regular rhythm. Multiple 10 7 RESPIRATORY: No accessory muscle use. Clear to auscultation. Breath sounds equal bilaterally. Bilateral chest excursion. No wheezing GASTROINTESTINAL: Abdomen soft, non-tender, nondistended. No guarding. Normoactive bowel sounds. MUSCULOSKELETAL: Extremities without clubbing, cyanosis, or edema. No obvious deformities. NEUROLOGICAL: GCS 14, confused. RASS -1. No gross focal/sensory deficits. Moves extremities 4, will not follow commands at this time secondary to altered mentation A/P Problem List: (1) Gastritis ICD Code: K29.70 - Gastritis Status: Acute (2) GERD (gastroesophageal reflux disease) ICD Code: K21.9 - GERD (gastroesophageal reflux disease) Status: Acute (3) Anemia ICD Code: D64.9 - Anemia Status: Acute (4) Hypokalemia ICD Code: E87.6 - Hypokalemia Status: Acute (5) Alcohol withdrawal ICD Code: F10.239 - Alcohol dependence with withdrawal, unspecified Status: Acute (6) Elevated lipase ICD Code: R74.8 - Abnormal levels of other serum enzymes Status: Acute (7) Alcohol abuse ICD Code: F10.10 - Alcohol abuse, uncomplicated Status: Acute (8) SHAVONNE (acute kidney injury) ICD Code: N17.9 - Acute kidney failure, unspecified Status: Resolved (9) Hyperglycemia ICD Code: R73.9 - Hyperglycemia, unspecified Status: Acute (10) Leucocytosis ICD Code: D72.829 - Leukocytosis Status: Acute (11) Hyponatremia ICD Code: E87.1 - Hypo-osmolality and hyponatremia Status: Acute (12) Dehydration ICD Code: E86.0 - Dehydration Status: Acute (13) Nausea & vomiting ICD Code: R11.2 - Nausea and vomiting Status: Resolved (14) Herpes zoster ICD Code: B02.9 - Zoster without complications (15) Hypomagnesemia ICD Code: E83.42 - Hypomagnesemia Status: Resolved (16) Acute pancreatitis ICD Code: K85.90 - Acute pancreatitis without necrosis or infection, unspecified Status: Acute (17) Delirium tremens ICD Code: F10.231 - Alcohol dependence with withdrawal delirium Status: Acute (18) Electrolyte disturbance ICD Code: E87.8 - Other disorders of electrolyte and fluid balance, not elsewhere classified Status: Acute Assessment and Plan Assessment Acute pancreatitis Abdominal pain SHAVONNE-resolved Dehydration Hypomagnesemia Hyponatremia-resolved Hypocalcemia Hypokalemia Hyperglycemia Elevated transaminases Leukocytosis-resolved Hyperglycemia Recurrent C. difficile colitis EtOH abuse H/O seizure in the past Delirium tremens Hypertension Plan Neurologic: Neurochecks per ICU protocol Monitor for signs of alcohol withdrawal Seizure precautions 03/17-CIWA Protocol Begin Librium 50 mg every 6hrs, will consider Precedex IV Dilaudid and morphine IV PRN for pain scale 6-10 Consider topical lidocaine for forehead and facial area of previous herpes zoster Continue MVI, thiamine, folate IV Neurontin decreased to 400mg q 8hr (home med for herpes zoster) Respiratory: Obtain O2 sat greater than 92% Consider supplemental O2 via nasal cannula 1-4 lpm Bronchodilators every 4 hours PRN for wheezing Cardiovascular: Maintain MAP > 65 Initial troponin< 0.02 Telemetry-sinus rhythm Begin Clonidine 0.1 mg TID Metoprolol 2.5 mg IV PRN for SBP > 160 Renal: No Fuentes -- Strict I/Os FEN/GI: Change IVF D5 1/2 NS @125 cc/hour. D/C D10 Obtain formal swallow study-then begin liquid diet, will advance as tolerated 03/16 CT abdomen/pelvis- left renal cyst, colonic diverticulosis without diverticulitis, enlarged prostate, noted compression deformity of T11, pancreas within normal limits, no calcified gallstones Zofran for nausea Monitor LFT's- downtrending Lipase level normal 320 Replete electrolytes per ICU protocol Magnesium level 1.2-repleted 2 g magnesium, Potassium repleted 50 mEq Heme/ID: ID following-Dr. Henderson-antibiotic management blood cultures-Klebsiella pneumoniae Stool- C. difficile antigen positive Monitor CBC Patient received Zosyn 1 dose and [place] [facility] Endocrine: Continue Glucose monitoring every hour with low-dose insulin regimen D/C D10 -IVF's changed see above comments -- SSI Prophylaxis: GI Prophylaxis Protonix DVT Prophylaxis -- SCDs Heparin 5000u every 12 hours Lines: IVs providing adequate access at this time. Central line if indicated Dispo: This patient remains critically ill with one or more organ systems which are or may become a threat to life. I have spent in excess of 35 minutes discontinuously in the care and management of this patient. This time is exclusive of procedures, and includes, but is not limited to, evaluation of the patient, review of the medical record, discussions with family, consultants, nursing staff, or respiratory therapy, and documentation in the medical record. Physician Valeria Aj Problem Qualifiers (1) Acute pancreatitis: Qualified Codes: K85.20 - Alcohol induced acute pancreatitis without necrosis or infection Valeria Aj MD Mar 18, 2017 09:16
[2017-03-18] MEDS: DEXT 5%-NACL 0.45% 1000 ML INJ 1,000 ML IV SCH ×2 (10:37→17:54)
[2017-03-18] MEDS: cloNIDine HCL 0.1 MG TAB PO SCH ×3 (13:05→21:44)
[2017-03-18] MEDS: MULTIVITAMIN INJ 10 ML, FOLIC ACID INJ 1 MG in SODIUM CHLORID 0.9% 500 ML INJ 500 ML IV SCH (16:16)
[2017-03-18] MEDS: THIAMINE INJ 100 MG in SODIUM CHLORIDE 0.9% INJ 100 ML IV SCH (16:16)
[2017-03-18] MEDS: LORazepam 2 MG/ML VIAL IV PUSH PRN ×2 (18:07→22:15)
[2017-03-18] MEDS: HYDROmorphone HCL PF 1 MG/ML VIAL IV PUSH PRN (22:15)
[2017-03-19] VITALS (18 sets, daily range): BP systolic 102–162; BP diastolic 64–96; PULSE 64–84; RESP 16–34; TEMP 97.7–99.4; O2SAT 98–100
[2017-03-19] MEDS: DEXT 5%-NACL 0.45% 1000 ML INJ 1,000 ML IV SCH ×3 (00:12→20:35)
[2017-03-19] MEDS: CHLORHEXIDINE GLUCONATE 2 % 1 PACK (2 CLOTHS) TOP SCH (04:00)
[2017-03-19] MEDS: AZTREONAM INJ 2,000 MG in SODIUM CHLORIDE 0.9% INJ 100 ML IV SCH ×3 (04:00→20:35)
[2017-03-19] MEDS: POTASSIUM CHLOR 20 MEQ PREMIX 100 ML IV PRN (05:23)
[2017-03-19] MEDS: HEPARIN SODIUM - SQ 10,000 UNITS/ML VIAL SQ SCH ×2 (07:30→16:54)
[2017-03-19] MEDS: cloNIDine HCL 0.1 MG TAB PO SCH ×3 (07:30→20:37)
[2017-03-19] MEDS: METOPROLOL TARTRATE 25 MG TAB PO SCH ×3 (07:30→20:37)
[2017-03-19] MEDS: INSULIN ASPART SUPPLEMENTAL SCALE SQ SCH ×4 (08:00→20:37)
[2017-03-19 08:13] LABS: HEMATOCRIT 25.8 % (39.0-51.0); MEAN CORPUSCULAR HEMOGLOBIN 31.8 PG (27.0-34.0); MEAN CORPUSCULAR HGB CONC 33.8 % (32.0-36.0); PLATELET COUNT 201 TH/MM3 (150-450); RED BLOOD COUNT 2.74 MIL/MM3 (4.50-5.90); RED CELL DISTRIBUTION WIDTH 20.4 % (11.6-17.2); WHITE BLOOD COUNT 8.6 TH/MM3 (4.0-11.0)
[2017-03-19 08:17] LABS: BICARBONATE 15.7 MEQ/L (21.0-32.0); MAGNESIUM 1.2 MG/DL (1.5-2.5)
[2017-03-19 08:18] LABS: POTASSIUM 4.9 MEQ/L (3.5-5.1)
[2017-03-19 08:47] LABS: REVIEW FLAG FINAL
[2017-03-19] MEDS: MULTIVITAMIN INJ 10 ML, FOLIC ACID INJ 1 MG in SODIUM CHLORID 0.9% 500 ML INJ 500 ML IV SCH (09:35)
[2017-03-19] MEDS: VANCOMYCIN 500 MG VIAL (FOR ORAL USE ONLY) PO SCH ×4 (09:36→20:36)
[2017-03-19] MEDS: GABAPENTIN 400 MG CAP PO SCH ×3 (09:36→16:54)
[2017-03-19] MEDS: DOCUSATE SODIUM 50 MG/SENNA 8.6 MG TAB PO SCH ×2 (09:36→20:36)
[2017-03-19] MEDS: PANTOPRAZOLE SODIUM 40 MG VIAL IV PUSH SCH (09:36)
[2017-03-19] MEDS: SODIUM CHLORIDE 0.9% FLUSH 10 ML FLUSH IV FLUSH SCH ×2 (09:37→20:36)
[2017-03-19] MEDS: THIAMINE INJ 100 MG in SODIUM CHLORIDE 0.9% INJ 100 ML IV SCH (09:38)
--- NOTE | 2017-03-19 09:53 | HHI.IDPN ---
Subjective Subjective Remarks is a 61-year-old male who presented to [facility] with complaints of abdominal pain. The patient reported that the pain started around 3:00 am 03/14. The patient had been drinking at a binging democrat lasting over several days. Upon initiation of lower abdominal pain , he began having progressive nausea and vomiting with escalation of abdominal pain. He also reported having frequent bouts of diarrhea. The patient's medical history significant for previous episodes of diverticulitis. He also reports one other episode of pancreatitis approx 10 yrs back after binge drinking after his divorce. Patient reports this is his 6th episode of Cdiff positive diarrhea. He reports he was being considered for fecal transplantation as outpatient. With this background he reports he was admitted at [facility]. He was noted to have marked tachycardia en route to the hospital and on arrival to [facility] heart rate 170's. The patient's medical history is also significant for 6 weeks ago having herpes zoster affecting his left eye, and has completed medication regimen. Imaging and laboratory studies were performed and revealed elevated lipase level as well as hypomagnesemia with a magnesium level initially of 0.6, he received 2 g of magnesium at that time and was bolused with 2 L normal saline. The patient was transported to [facility]. Critical care medicine wqs consulted. At the time of my evaluation, patient is in the ICU. Awake, not on pressors, provided me history. UO good. Diarrhea 3 episodes liquid stool. ID consulted for eval and MMent of Sepsis, gram negative bacteremia and recurrent Cdiff colitis. Overnight events reviewed. No fevers No rash Still has loose BMs Complains of abd pain but slightly better. Antibiotics Azactam IV Vanco Oral Lines Line sites with no e/o infection Past Medical History Hypertension History of diverticulitis GERD Arthritis History of pancreatitis Recurrent clostridium difficile Rectal surgery Left-sided chest tube Back surgery 2 Neck surgery Left Achilles tendon surgery Left hip hemiarthroplasty Allergies: Coded Allergies: codeine (Verified Allergy, Severe, RASH, 03/16/17) ibuprofen (Verified Allergy, Severe, Swelling, 03/16/17) of eyes levofloxacin (Verified Allergy, Severe, ACHILLES TENDON PROBLEM, 03/16/17) metronidazole (Verified Allergy, Severe, 03/16/17) sulfamethoxazole (Verified Allergy, Severe, Diarrhea, 03/16/17) trimethoprim (Verified Allergy, Severe, Diarrhea, 03/16/17) Objective . Vital Signs Date Time Temp Pulse Resp B/P (MAP) Pulse Ox O2 Delivery O2 Flow Rate FiO2 03/19/17 06:00 72 27 147/92 (110) 99 03/19/17 06:00 72 03/19/17 05:00 64 23 160/96 (117) 100 03/19/17 04:00 99.2 70 25 134/80 (98) 99 03/19/17 04:00 70 03/19/17 03:00 66 23 150/86 (107) 99 03/19/17 02:00 65 03/19/17 02:00 65 25 105/65 (78) 99 03/19/17 01:00 65 26 134/68 (90) 99 03/19/17 00:00 99.4 67 34 102/67 (79) 99 03/19/17 00:00 67 03/18/17 23:00 69 26 127/70 (89) 98 03/18/17 22:45 16 03/18/17 22:00 96 03/18/17 22:00 96 28 149/80 (103) 100 03/18/17 21:00 84 27 160/97 (118) 100 03/18/17 20:10 100 21 03/18/17 20:00 99.2 82 26 171/96 (121) 100 03/18/17 20:00 82 03/18/17 19:00 79 30 170/91 (117) 99 03/18/17 18:18 78 03/18/17 18:18 78 24 166/94 (118) 100 03/18/17 18:01 82 03/18/17 18:01 82 28 159/92 (114) 98 03/18/17 18:00 81 27 99 03/18/17 18:00 81 03/18/17 17:00 66 03/18/17 17:00 66 26 140/78 (98) 98 03/18/17 16:01 68 03/18/17 16:01 68 24 96/63 (74) 98 03/18/17 16:00 67 03/18/17 16:00 67 23 98 03/18/17 15:00 96 25 161/93 (115) 99 03/18/17 14:00 68 23 130/85 (100) 99 03/18/17 14:00 68 03/18/17 13:34 89 30 173/94 (120) 99 03/18/17 13:34 89 03/18/17 13:20 89 25 188/107 (134) 100 03/18/17 13:20 89 03/18/17 13:15 96 03/18/17 13:15 96 30 194/102 (132) 100 03/18/17 13:10 93 03/18/17 13:10 93 18 188/89 (122) 99 03/18/17 13:04 101 24 187/113 (137) 100 03/18/17 13:04 101 03/18/17 13:03 106 03/18/17 13:03 106 25 182/104 (130) 100 03/18/17 13:00 100 27 211/103 (139) 100 03/18/17 13:00 100 03/18/17 12:00 66 03/18/17 12:00 66 20 145/80 (101) 99 03/18/17 11:06 66 22 166/87 (113) 100 03/18/17 11:06 66 03/18/17 11:03 72 21 190/93 (125) 100 03/18/17 11:03 72 03/18/17 11:02 74 03/18/17 11:02 74 19 183/113 (136) 100 03/18/17 11:00 62 21 188/83 (118) 99 03/18/17 11:00 62 03/18/17 10:00 66 03/18/17 10:00 66 19 153/90 (111) 100 . Laboratory Tests Test 03/18/17 04:15 03/19/17 06:08 White Blood Count 7.4 TH/MM3 8.6 TH/MM3 Red Blood Count 2.87 MIL/MM3 2.74 MIL/MM3 Hemoglobin 8.9 GM/DL 8.7 GM/DL Hematocrit 26.4 % 25.8 % Mean Corpuscular Volume 91.9 FL 94.0 FL Mean Corpuscular Hemoglobin 31.1 PG 31.8 PG Mean Corpuscular Hemoglobin Concent 33.8 % 33.8 % Red Cell Distribution Width 20.7 % 20.4 % Platelet Count 190 TH/MM3 201 TH/MM3 Mean Platelet Volume 9.3 FL 9.6 FL Neutrophils (%) (Auto) 76.6 % Lymphocytes (%) (Auto) 10.1 % Monocytes (%) (Auto) 10.5 % Eosinophils (%) (Auto) 2.3 % Basophils (%) (Auto) 0.5 % Neutrophils # (Auto) 5.6 TH/MM3 Lymphocytes # (Auto) 0.7 TH/MM3 Monocytes # (Auto) 0.8 TH/MM3 Eosinophils # (Auto) 0.2 TH/MM3 Basophils # (Auto) 0.0 TH/MM3 CBC Comment AUTO DIFF Differential Comment AUTO DIFF CONFIRMED Laboratory Tests Test 03/18/17 04:15 03/19/17 06:08 Blood Urea Nitrogen 17 MG/DL 11 MG/DL Creatinine 0.92 MG/DL 0.90 MG/DL Random Glucose 87 MG/DL 106 MG/DL Total Protein 6.2 GM/DL Albumin 2.6 GM/DL Calcium Level 8.1 MG/DL 7.9 MG/DL Phosphorus Level 2.6 MG/DL 2.1 MG/DL Magnesium Level 1.2 MG/DL 1.2 MG/DL Alkaline Phosphatase 157 U/L Aspartate Amino Transf (AST/SGOT) 65 U/L Alanine Aminotransferase (ALT/SGPT) 196 U/L Total Bilirubin 1.2 MG/DL Sodium Level 134 MEQ/L 132 MEQ/L Potassium Level 2.9 MEQ/L 4.9 MEQ/L Chloride Level 103 MEQ/L 109 MEQ/L Carbon Dioxide Level 19.1 MEQ/L 15.7 MEQ/L Anion Gap 12 MEQ/L 7 MEQ/L Estimat Glomerular Filtration Rate 83 ML/MIN 85 ML/MIN Lipase 320 U/L 319 U/L Microbiology Date/Time Source Procedure Growth Status 03/17/17 13:40 Blood Peripheral Aerobic Blood Culture - Preliminary NO GROWTH IN 1 DAY Resulted 03/17/17 13:40 Blood Peripheral Anaerobic Blood Culture - Preliminary NO GROWTH IN 1 DAY Resulted 03/17/17 13:30 Blood Peripheral Aerobic Blood Culture - Preliminary NO GROWTH IN 1 DAY Resulted 03/17/17 13:30 Blood Peripheral Anaerobic Blood Culture - Preliminary NO GROWTH IN 1 DAY Resulted 03/16/17 12:30 Blood Peripheral Aerobic Blood Culture - Final Klebsiella Pneumoniae Complete 03/16/17 12:30 Anaerobic Blood Culture - Final Klebsiella Pneumoniae Complete 03/16/17 12:25 Blood Peripheral Aerobic Blood Culture - Final Klebsiella Pneumoniae Resulted 03/16/17 12:25 Blood Peripheral Anaerobic Blood Culture - Preliminary NO GROWTH IN 2 DAYS Resulted Imaging Last Impressions Abdomen/Pelvis CT 03/16/17 1126 Signed Impressions: Service Date/Time: Thursday, March 16, 2017 12:08 - CONCLUSION: 1. Uncomplicated colonic diverticulosis. 2. Stable diffuse urinary bladder wall thickening is noted. 3. Degenerative changes and scoliosis of the thoracolumbar spine. 4. Enlarged prostate. 5. Stable lower pole left renal cyst measuring 17 mm. 6. Chronic stable perinephric streakiness bilaterally. 7. Chronic scarring within the lingula of the left upper lobe. Nilesh Simms MD Physical Exam GENERAL: This is a well-nourished, well-developed patient, in no apparent distress. SKIN: No rashes, ecchymoses or lesions. Cool and dry. HEAD: Atraumatic. Normocephalic. No temporal or scalp tenderness. EYES: Pupils equal round and reactive. Extraocular motions intact. No scleral icterus. No injection or drainage. ENT: Nose without bleeding, purulent drainage or septal hematoma. Throat without erythema, tonsillar hypertrophy or exudate. Uvula midline. Airway patent. NECK: Trachea midline. Supple, nontender, no meningeal signs. CARDIOVASCULAR: Regular rate and rhythm without murmurs, gallops, or rubs. RESPIRATORY: Clear to auscultation. Breath sounds equal bilaterally. No wheezes , rales, or rhonchi. GASTROINTESTINAL: Abdomen soft, diffuse tenderness. MUSCULOSKELETAL: Extremities without clubbing, cyanosis, or edema. No joint tenderness, effusion, or edema noted. No calf tenderness. Negative Homans sign bilaterally. NEUROLOGICAL: Awake and alert. Cranial nerves II through XII intact. Motor and sensory grossly within normal limits. Five out of 5 muscle strength in all muscle groups. Normal speech. Psych cooperative IV line sites with no e.o infection. Assessment & Plan Remarks Sepsis present on admission Kleb pneumo bacteremia ? abd source appears transient. Cdiff positive diarrhea/colitis Recurrent Cdiff Acute pancreatitis Acute renal failure: sepsis, prerenal Abnormal liver function tests: sepsis, alcoholism related. Recs Continue Azactam IV. Would like to avoid Cephalosporins and Levaquin that can ppt the Cdiff. Continue oral Vanco. ? Component of Pancreatitis induced diarrhea Follow cultures and susceptibility to decide further workup and ABX plan. Follow clinically Shraddha pt and RN covering for me this weekend. Matilda Henderson MD Mar 19, 2017 09:53
[2017-03-19] MEDS: HYDROmorphone HCL PF 1 MG/ML VIAL IV PUSH PRN ×3 (10:45→21:47)
--- NOTE | 2017-03-19 12:39 | HHI.CCPN ---
Subjective Remarks/Hospital Course This 61-year-old male that presented to [facility] with complaints of abdominal pain. The patient reported that the pain started around 3:00 am 03/14. The patient had been drinking at an expansive green party lasting over several days. Upon initiation of lower abdominal pain , he began having progressive nausea and vomiting with escalation of abdominal pain. He also reported having frequent bouts of diarrhea. The patient's medical history significant for previous episodes of diverticulitis. He previously has been diagnosed with C. difficile. He reported to the ED physician that he has being considered for a stool transplant. He was noted to have marked tachycardia en route to the hospital and on arrival to [facility] heart rate 170's. Patient admits to a history of being a heavy drinker. He has had previous bouts of pancreatitis in the past couple years. The patient's medical history is also significant for 6 weeks ago having herpes zoster affecting his left eye , and has completed medication regimen. Imaging and laboratory studies were performed and revealed elevated lipase level as well as hypomagnesemia with a magnesium level initially of 0.6, he received 2 g of magnesium at that time and was bolused with 2 L normal saline. The patient was transported to [facility]. Critical care medicine is consulted. Subjective: 03/17: Afebrile. Overnight no bouts of nausea, pace level significantly downtrending .C. difficile PCR positive, and gram-negative bacteremia. Patient was noted to have the sixth episode of C. difficile in the last 4 years. She was scheduled for fecal transplant this week, Dr. Cook is patient's trashman. ID has been consulted. The patient was placed on vancomycin PO. The patient has an allergy to Flagyl, unsure if true allergy, he states he gets nauseated and vomits. No anaphylactoid/anaphylaxis type of reactions or hemodynamic instability consumption. The patient noted his first 2 episodes of C. difficile he did have combined therapy with vancomycin and Flagyl without difficulty. The patient complained of irritation in the area of the left for head/and left eye from his recent diagnosis of herpes zoster. Patient previously on gabapentin 600mg TID will resume. 03/18: Overnight the patient went into delirium tremens despite being on CIWA protocol. The patient removed all IV access devices and required Haldol and Ativan IM, and was placed in 4 point restraints. The patient this morning is lethargic, easily arousable and answering questions, currently alert to name only. Lipase now within normal limits, formal swallow study pending with plans for initiating a clear liquid diet, if tolerated. Blood cultures resulted in Klebsiella, patient currently on antibiotic therapy ID, Dr. Henderson following. 03/19: No acute events overnight. Patient alert and oriented x3 .Resolution of delirium tremens. The patient continues on clonidine TID, and Librium PRN. Patient tolerated clear liquid diet last evening, refused full liquid diet this a.m. secondary to lactulose intolerance and full liquid diet including milk products. Plan to resume clear liquid diet and advance diet as tolerated. Patient complained of abdominal pain once during the night receiving IV Dilaudid , with resolution of symptoms. Lipase within normal limits, LFTs continue to down trend. Objective Vital Signs Date Time Temp Pulse Resp B/P (MAP) Pulse Ox O2 Delivery O2 Flow Rate FiO2 03/19/17 06:00 72 27 147/92 (110) 99 03/19/17 04:00 99.2 03/18/17 20:10 21 03/18/17 08:50 Nasal Cannula 3.00 Intake and Output 03/19/17 03/19/17 03/20/17 08:00 16:00 00:00 Output Total 750 ml Balance -750 ml Result Diagram: 03/19/17 0608 03/19/17 0608 Imaging Last Impressions Abdomen/Pelvis CT 03/16/17 1126 Signed Impressions: Service Date/Time: Thursday, March 16, 2017 12:08 - CONCLUSION: 1. Uncomplicated colonic diverticulosis. 2. Stable diffuse urinary bladder wall thickening is noted. 3. Degenerative changes and scoliosis of the thoracolumbar spine. 4. Enlarged prostate. 5. Stable lower pole left renal cyst measuring 17 mm. 6. Chronic stable perinephric streakiness bilaterally. 7. Chronic scarring within the lingula of the left upper lobe. Nilesh Simms MD Objective Remarks GENERAL: Well-developed well-nourished appropriately stated age male, awake and alert. Appropriately conversant. SKIN: Warm and dry. Multiple ecchymosis and petechial bruising bilateral extremities noted. Noted open abrasions, dressing right wrist C/D/I HEAD: Atraumatic. Normocephalic. Well healed scarring on forehead and nasal bridge from herpes zoster EYES: Pupils equal and round, 3 mm and brisk. No scleral icterus. EOMI. No injection or drainage. ENT: No nasal bleeding or discharge. Mucous membranes pink and moist. NECK: Trachea midline. No JVD. CARDIOVASCULAR: Normal rate, regular rhythm. RESPIRATORY: No accessory muscle use. Clear to auscultation. Breath sounds equal bilaterally. Bilateral chest excursion. No wheezing GASTROINTESTINAL: Abdomen soft, non-tender, nondistended. No guarding. Normoactive bowel sounds. MUSCULOSKELETAL: Extremities without clubbing, cyanosis, or edema. No obvious deformities. NEUROLOGICAL: GCS 15, confused. RASS 0. No gross focal/sensory deficits. Moves extremities 4, will not follow commands at this time secondary to altered mentation A/P Problem List: (1) Gastritis ICD Code: K29.70 - Gastritis Status: Acute (2) GERD (gastroesophageal reflux disease) ICD Code: K21.9 - GERD (gastroesophageal reflux disease) Status: Acute (3) Anemia ICD Code: D64.9 - Anemia Status: Acute (4) Hypokalemia ICD Code: E87.6 - Hypokalemia Status: Acute (5) Alcohol withdrawal ICD Code: F10.239 - Alcohol dependence with withdrawal, unspecified Status: Acute (6) Elevated lipase ICD Code: R74.8 - Abnormal levels of other serum enzymes Status: Acute (7) Alcohol abuse ICD Code: F10.10 - Alcohol abuse, uncomplicated Status: Acute (8) SHAVONNE (acute kidney injury) ICD Code: N17.9 - Acute kidney failure, unspecified Status: Resolved (9) Hyperglycemia ICD Code: R73.9 - Hyperglycemia, unspecified Status: Acute (10) Leucocytosis ICD Code: D72.829 - Leukocytosis Status: Acute (11) Hyponatremia ICD Code: E87.1 - Hypo-osmolality and hyponatremia Status: Acute (12) Dehydration ICD Code: E86.0 - Dehydration Status: Acute (13) Nausea & vomiting ICD Code: R11.2 - Nausea and vomiting Status: Resolved (14) Herpes zoster ICD Code: B02.9 - Zoster without complications (15) Hypomagnesemia ICD Code: E83.42 - Hypomagnesemia Status: Resolved (16) Acute pancreatitis ICD Code: K85.90 - Acute pancreatitis without necrosis or infection, unspecified Status: Acute (17) Delirium tremens ICD Code: F10.231 - Alcohol dependence with withdrawal delirium Status: Acute (18) Electrolyte disturbance ICD Code: E87.8 - Other disorders of electrolyte and fluid balance, not elsewhere classified Status: Acute Assessment and Plan Assessment Acute pancreatitis Abdominal pain SHAVONNE-resolved Dehydration Hypomagnesemia Hyponatremia-resolved Hypocalcemia Hypokalemia Hyperglycemia Elevated transaminases Leukocytosis-resolved Hyperglycemia Recurrent C. difficile colitis EtOH abuse H/O seizure in the past Delirium tremens Hypertension Plan Neurologic: Neurochecks per ICU protocol Monitor for signs of alcohol withdrawal Seizure precautions 03/17-CIWA Protocol Begin Librium 50 mg every 6hrs PRN Dilaudid and morphine IV PRN for pain scale 6-10 Consider topical lidocaine for forehead and facial area of previous herpes zoster Continue MVI, thiamine, folate IV-transition to PO when able to tolerate diet Neurontin decreased to 400mg q 8hr (home med for herpes zoster) Respiratory: Obtain O2 sat greater than 92%, currently 100% on room air Consider supplemental O2 via nasal cannula 1-4 lpm Bronchodilators every 4 hours PRN for wheezing Cardiovascular: Maintain MAP > 65 Initial troponin< 0.02 Telemetry-sinus rhythm Continue Clonidine 0.1 mg TID Metoprolol 2.5 mg IV PRN for SBP > 160 Renal: No Fuentes -- Strict I/Os FEN/GI: Decrease IVF D5 1/2 NS 75cc/hour. Obtain formal swallow study-then begin liquid diet, will advance as tolerated 03/16 CT abdomen/pelvis- left renal cyst, colonic diverticulosis without diverticulitis, enlarged prostate, noted compression deformity of T11, pancreas within normal limits, no calcified gallstones Zofran for nausea Monitor LFT's- downtrending Lipase level normal 319 Replete electrolytes per ICU protocol Heme/ID: ID following-Dr. Henderson-antibiotic management blood cultures-Klebsiella pneumoniae Stool- C. difficile antigen positive Monitor CBC Patient received Zosyn 1 dose and [place] [facility] Endocrine: Decrease frequency of Glucose monitoring to every 4 hours with low-dose insulin regimen Euglycemic IVF's changed see above comments -- SSI Prophylaxis: GI Prophylaxis Protonix DVT Prophylaxis -- SCDs Heparin 5000u every 12 hours Lines: IVs providing adequate access at this time. Central line if indicated Dispo: Level II Discussed with SILVER STEWARD at bedside. Plan for transfer to [facility], and for transfer to Med Surg floor Physician Valeria Aj Problem Qualifiers (1) Acute pancreatitis: Qualified Codes: K85.20 - Alcohol induced acute pancreatitis without necrosis or infection Valeria Aj MD Mar 19, 2017 12:39
[2017-03-19] MEDS: LORazepam 2 MG/ML VIAL IV PUSH PRN (12:58)
[2017-03-20] VITALS (7 sets, daily range): BP systolic 147–175; BP diastolic 86–97; PULSE 81–96; RESP 18–19; TEMP 97.9–98.9; O2SAT 98–100
[2017-03-20] MEDS: CHLORHEXIDINE GLUCONATE 2 % 1 PACK (2 CLOTHS) TOP SCH (04:00)
[2017-03-20] MEDS: AZTREONAM INJ 2,000 MG in SODIUM CHLORIDE 0.9% INJ 100 ML IV SCH ×3 (04:48→19:59)
[2017-03-20] MEDS: METOPROLOL TARTRATE 25 MG TAB PO SCH ×3 (05:00→23:00)
[2017-03-20] MEDS: cloNIDine HCL 0.1 MG TAB PO SCH ×3 (05:00→23:00)
[2017-03-20] MEDS: HEPARIN SODIUM - SQ 10,000 UNITS/ML VIAL SQ SCH ×2 (05:00→18:27)
[2017-03-20] MEDS: HYDROmorphone HCL PF 1 MG/ML VIAL IV PUSH PRN (05:08)
[2017-03-20] MEDS: SODIUM CHLORIDE 0.9% FLUSH 10 ML FLUSH IV FLUSH SCH ×2 (09:00→21:00)
[2017-03-20] MEDS ORDERED: PANTOPRAZOLE SOD 40 MG DELAYED RELEASE TAB PO SCH (09:00)
[2017-03-20] MEDS: DOCUSATE SODIUM 50 MG/SENNA 8.6 MG TAB PO SCH ×2 (09:03→21:00)
[2017-03-20] MEDS: VANCOMYCIN 500 MG VIAL (FOR ORAL USE ONLY) PO SCH ×4 (09:03→21:00)
[2017-03-20] MEDS: GABAPENTIN 400 MG CAP PO SCH ×3 (09:03→18:26)
[2017-03-20] MEDS: INSULIN ASPART SUPPLEMENTAL SCALE SQ SCH ×4 (09:04→21:00)
[2017-03-20] MEDS: DEXT 5%-NACL 0.45% 1000 ML INJ 1,000 ML IV SCH ×2 (09:20→22:40)
--- NOTE | 2017-03-20 09:39 | HHI.PR ---
Subjective Remarks Follow-up pancreatitis and C. difficile. Requesting better food. Still having abdominal pain scale of 5-8. Improving loose stools. Objective Vitals Vital Signs Date Time Temp Pulse Resp B/P (MAP) Pulse Ox O2 Delivery O2 Flow Rate FiO2 03/20/17 08:08 97.9 81 18 167/94 (118) 100 03/20/17 04:00 98.1 84 19 156/86 (109) 98 03/20/17 00:00 98.0 81 19 147/96 (113) 98 03/19/17 20:00 97.7 82 19 162/89 (113) 100 03/19/17 15:55 97.8 72 16 161/92 (115) 100 03/19/17 14:00 68 19 109/66 (80) 100 03/19/17 14:00 68 03/19/17 13:23 100 21 03/19/17 13:00 82 23 141/86 (104) 100 03/19/17 12:00 98.4 69 26 156/83 (107) 98 03/19/17 12:00 70 03/19/17 11:00 77 03/19/17 11:00 77 20 143/90 (107) 03/19/17 10:00 84 33 137/85 (102) 03/19/17 10:00 84 I/O 03/19/17 03/19/17 03/19/17 03/20/17 03/20/17 03/20/17 07:00 15:00 23:00 07:00 15:00 23:00 Intake Total 480 ml Output Total 750 ml Balance -750 ml 480 ml Intake Oral 480 ml Output Urine Total 750 ml # Voids 5 # Bowel Movements 4 Result Diagram: 03/19/17 0608 03/19/17 0608 Imaging Last Impressions Abdomen/Pelvis CT 03/16/17 1126 Signed Impressions: Service Date/Time: Thursday, March 16, 2017 12:08 - CONCLUSION: 1. Uncomplicated colonic diverticulosis. 2. Stable diffuse urinary bladder wall thickening is noted. 3. Degenerative changes and scoliosis of the thoracolumbar spine. 4. Enlarged prostate. 5. Stable lower pole left renal cyst measuring 17 mm. 6. Chronic stable perinephric streakiness bilaterally. 7. Chronic scarring within the lingula of the left upper lobe. Nilesh Simms MD Objective Remarks GENERAL: Well-developed well-nourished SKIN: Warm and dry. Multiple ecchymosis and petechial bruising bilateral extremities noted. Noted open abrasions, dressing right wrist C/D/I HEAD: Atraumatic. Normocephalic. Well healed scarring on forehead and nasal bridge from herpes zoster EYES: Pupils equal and round, 3 mm and brisk. No scleral icterus. EOMI. No injection or drainage. CARDIOVASCULAR: Normal rate, regular rhythm. RESPIRATORY: No accessory muscle use. Clear to auscultation. Breath sounds equal bilaterally. Bilateral chest excursion. No wheezing GASTROINTESTINAL: Abdomen soft, non-tender, nondistended. No guarding. Normoactive bowel sounds. MUSCULOSKELETAL: Extremities without clubbing, cyanosis, or edema. No obvious deformities. NEUROLOGICAL: Awake and alert nonfocal A/P Problem List: (1) C. difficile colitis ICD Code: A04.7 - Enterocolitis due to Clostridium difficile Status: Acute Assessment and Plan Acute pancreatitis. Improving. Advance diet as tolerated. Pain management start oxycodone and switch IV Dilaudid for breakthrough pain Alcohol withdrawal. Improving continue CIWA protocol. Counseled Transaminitis secondary to alcohol. Hepatitis screen negative Monitor Recurrent C. difficile. Continue vancomycin per ID. Outpatient follow-up with GI for transplant Klebsiella pneumonia bacteremia. Continue IV aztreonam per ID Diffuse bladder wall thickening and enlarged prostate. Urinalysis negative. Patient sees outpatient DVT prophylaxis with heparin Kashif Barrett MD Mar 20, 2017 09:39
[2017-03-20] MEDS ORDERED: cloNIDine HCL 0.1 MG TAB PO PRN (17:45)
[2017-03-20] MEDS ORDERED: ENALAPRILAT 1.25 MG/ML VIAL IV PUSH PRN (17:45)
[2017-03-20] MEDS: LISINOPRIL 10 MG TAB PO SCH (18:26)
[2017-03-20] MEDS: amLODIPine BESYLATE 5 MG TAB PO SCH (18:26)
[2017-03-21] VITALS: BP 167/95; PULSE 84; RESP 17; TEMP 97.8; O2SAT 100
[2017-03-21] MEDS: AZTREONAM INJ 2,000 MG in SODIUM CHLORIDE 0.9% INJ 100 ML IV SCH ×3 (03:37→22:23)
[2017-03-21] MEDS: CHLORHEXIDINE GLUCONATE 2 % 1 PACK (2 CLOTHS) TOP SCH (03:37)
[2017-03-21 04:00] VITALS: BP 157/87; PULSE 77; RESP 17; TEMP 98.1; O2SAT 99
[2017-03-21] MEDS: cloNIDine HCL 0.1 MG TAB PO SCH ×3 (05:36→22:23)
[2017-03-21] MEDS: METOPROLOL TARTRATE 25 MG TAB PO SCH ×3 (05:36→22:24)
[2017-03-21] MEDS: HEPARIN SODIUM - SQ 10,000 UNITS/ML VIAL SQ SCH ×2 (05:37→16:48)
[2017-03-21 07:13] LABS: AUTOMATED NEUTROPHIL # 4.5 TH/MM3 (1.8-7.7); BASOPHIL # 0.1 TH/MM3 (0-0.2); EOSINOPHIL # 0.3 TH/MM3 (0-0.4); EOSINOPHIL % 3.4 % (0.0-4.0); HEMATOCRIT 25.3 % (39.0-51.0); LYMPH % 20.8 % (9.0-44.0); LYMPHOCYTE # 1.6 TH/MM3 (1.0-4.8); MEAN CELL VOLUME 92.5 FL (80.0-100.0); MEAN CORPUSCULAR HEMOGLOBIN 30.3 PG (27.0-34.0); MEAN CORPUSCULAR HGB CONC 32.8 % (32.0-36.0); MONO % 16.4 % (0.0-8.0); NEUT % 58.4 % (16.0-70.0); PLATELET COUNT 293 TH/MM3 (150-450); RED BLOOD COUNT 2.73 MIL/MM3 (4.50-5.90); RED CELL DISTRIBUTION WIDTH 20.2 % (11.6-17.2); WHITE BLOOD COUNT 7.7 TH/MM3 (4.0-11.0)
[2017-03-21 07:19] LABS: HEMO FLAGS AUTO DIFF
[2017-03-21 07:30] LABS: ANION GAP 9 MEQ/L (5-15); AST (GOT) 26 U/L (15-37); BICARBONATE 20.8 MEQ/L (21.0-32.0); BLOOD UREA NITROGEN 9 MG/DL (7-18); CHLORIDE 107 MEQ/L (98-107); GLOMERULAR FILTRATION RATE 73 ML/MIN (>89); MAGNESIUM 0.8 MG/DL (1.5-2.5); POTASSIUM 4.4 MEQ/L (3.5-5.1); SODIUM (NA) 137 MEQ/L (136-145)
[2017-03-21 07:31] LABS: ALT (GPT) 93 U/L (12-78)
[2017-03-21 07:33] LABS: ALKALINE PHOSPHATASE 106 U/L (45-117); TOTAL BILIRUBIN ADULT 0.6 MG/DL (0.2-1.0)
[2017-03-21] MEDS: INSULIN ASPART SUPPLEMENTAL SCALE SQ SCH ×4 (08:00→21:00)
[2017-03-21 08:08] VITALS: BP 164/91; PULSE 67; RESP 18; TEMP 98.3; O2SAT 100
[2017-03-21] MEDS: THIAMINE HCL 100 MG TAB PO SCH (08:12)
[2017-03-21] MEDS: amLODIPine BESYLATE 5 MG TAB PO SCH (08:12)
[2017-03-21] MEDS: VANCOMYCIN 500 MG VIAL (FOR ORAL USE ONLY) PO SCH ×4 (08:13→22:23)
[2017-03-21] MEDS: GABAPENTIN 400 MG CAP PO SCH ×3 (08:14→16:49)
[2017-03-21] MEDS: DOCUSATE SODIUM 50 MG/SENNA 8.6 MG TAB PO SCH ×2 (08:14→22:23)
[2017-03-21] MEDS: LISINOPRIL 10 MG TAB PO SCH (08:14)
[2017-03-21] MEDS: SODIUM CHLORIDE 0.9% FLUSH 10 ML FLUSH IV FLUSH SCH ×2 (08:15→22:24)
[2017-03-21 08:56] LABS: BANDS 6 % (0-6); EOSINOPHILS 1 % (0-4); METAMYELOCYTES 2 % (0-1); MYELOCYTES 3 % (0-0); NEUTROPHIL # MANUAL DIFF 5.3 TH/MM3 (1.8-7.7); POLYS (SEG NEUTROPHILS) 58 % (16-70); WBC DIFF SAMPLE 100
[2017-03-21 09:00] LABS: PLATELET ESTIMATE SMEAR NORMAL (NORMAL)
[2017-03-21 09:01] LABS: PLATELET MORPHOLOGY ENLARGED (NORMAL); SCAN/DIFF FINAL DIFF MANUAL
--- NOTE | 2017-03-21 11:43 | HHI.PR ---
Subjective Remarks Follow-up pancreatitis, C. difficile colitis and hypertension. Improving abdominal pain scale of 4 out of 10. Stools are firming up. Since last night constant left supraorbital pain where he had herpes zoster. Discussed with RN Objective Vitals Vital Signs Date Time Temp Pulse Resp B/P (MAP) Pulse Ox O2 Delivery O2 Flow Rate FiO2 03/21/17 08:08 98.3 67 18 164/91 (115) 100 03/21/17 04:00 98.1 77 17 157/87 (110) 99 03/21/17 00:00 97.8 84 17 167/95 (119) 100 03/20/17 20:00 98.9 96 18 163/88 (113) 100 03/20/17 17:36 99 21 03/20/17 16:08 98.0 85 18 170/97 (121) 100 03/20/17 12:08 98.4 84 18 175/94 (121) 100 I/O 03/20/17 03/20/17 03/20/17 03/21/17 03/21/17 03/21/17 06:59 14:59 22:59 06:59 14:59 22:59 Intake Total 480 ml 100 ml 580 ml 950 ml Balance 480 ml 100 ml 580 ml 950 ml Intake Oral 480 ml 480 ml 950 ml IV Total 100 ml 100 ml # Voids 5 5 5 # Bowel Movements 1 Result Diagram: 03/21/17 0638 03/21/17 0638 Imaging Last Impressions Abdomen/Pelvis CT 03/16/17 1126 Signed Impressions: Service Date/Time: Thursday, March 16, 2017 12:08 - CONCLUSION: 1. Uncomplicated colonic diverticulosis. 2. Stable diffuse urinary bladder wall thickening is noted. 3. Degenerative changes and scoliosis of the thoracolumbar spine. 4. Enlarged prostate. 5. Stable lower pole left renal cyst measuring 17 mm. 6. Chronic stable perinephric streakiness bilaterally. 7. Chronic scarring within the lingula of the left upper lobe. Nilesh Simms MD Objective Remarks GENERAL: Well-developed well-nourished SKIN: Warm and dry. Multiple ecchymosis and petechial bruising bilateral extremities noted. Noted open abrasions, dressing right wrist C/D/I HEAD: Atraumatic. Normocephalic. Well healed scarring on forehead and nasal bridge from herpes zoster EYES: Pupils equal and round, 3 mm and brisk. No scleral icterus. EOMI. No injection or drainage. CARDIOVASCULAR: Normal rate, regular rhythm. RESPIRATORY: No accessory muscle use. Clear to auscultation. Breath sounds equal bilaterally. Bilateral chest excursion. No wheezing GASTROINTESTINAL: Abdomen soft, non-tender, nondistended. No guarding. Normoactive bowel sounds. MUSCULOSKELETAL: Extremities without clubbing, cyanosis, or edema. No obvious deformities. NEUROLOGICAL: Awake and alert nonfocal Procedures None A/P Problem List: (1) C. difficile colitis ICD Code: A04.7 - Enterocolitis due to Clostridium difficile Status: Acute Assessment and Plan Acute pancreatitis. Improving. Advance diet as tolerated. Pain management continue oxycodone and IV Dilaudid for breakthrough pain. Counseled regarding narcotics Alcohol withdrawal. Improving continue CIWA protocol. Counseled Transaminitis secondary to alcohol. Hepatitis screen negative. Improving Monitor Recurrent C. difficile. Improving. Continue vancomycin per ID. Outpatient follow-up with GI for transplant Klebsiella pneumonia bacteremia. Continue IV aztreonam per ID. Repeat blood cultures negative Diffuse bladder wall thickening and enlarged prostate. Urinalysis negative. Patient sees outpatient Recent left supraorbital herpes zoster status post treatment. Complains of increased discomfort. We will increase Neurontin and monitor DVT prophylaxis with heparin Discharge Planning Possible discharge in 1-2 days Kashif Barrett MD Mar 21, 2017 11:43
[2017-03-21] MEDS ORDERED: OXYC-392 PO (11:46)
[2017-03-21] MEDS ORDERED: METO25TA3 PO (11:46)
[2017-03-21] MEDS ORDERED: THIA100 PO (11:46)
--- NOTE | 2017-03-21 11:47 | HHI.DCPOC ---
Discharge Care Plan Diagnosis: (1) C. difficile colitis (2) Alcohol withdrawal Your Health Problems Are: Difficulty with ADL Exercise Tolerance Goals to Promote Your Health * To prevent worsening of your condition and complications * To maintain your health at the optimal level Directions to Meet Your Goals Take your medications as prescribed Follow your dietary instruction Follow activity as directed Keep your appointments as scheduled Take your immunizations and boosters as scheduled If your symptoms worsen call your PCP, if no PCP go to Urgent Care Center or Emergency Room Smoking is Dangerous to Your Health. Avoid second hand smoke Call the 24-hour hour crisis hotline for domestic abuse at Kashif Barrett MD Mar 21, 2017 11:47
[2017-03-21 12:08] VITALS: BP 168/90; PULSE 82; RESP 18; TEMP 97.9; O2SAT 100
[2017-03-21 16:08] VITALS: BP 109/70; PULSE 76; RESP 18; TEMP 98.8; O2SAT 100
[2017-03-21 20:00] VITALS: BP 150/74; PULSE 79; RESP 18; TEMP 98.2; O2SAT 100
[2017-03-22] VITALS: BP 146/77; PULSE 77; RESP 17; TEMP 98.7; O2SAT 99
[2017-03-22] MEDS: cloNIDine HCL 0.1 MG TAB PO SCH ×2 (03:59→14:00)
[2017-03-22] MEDS: METOPROLOL TARTRATE 25 MG TAB PO SCH ×2 (03:59→15:32)
[2017-03-22 04:00] VITALS: BP 149/78; PULSE 76; RESP 17; TEMP 98.4; O2SAT 97
[2017-03-22] MEDS: AZTREONAM INJ 2,000 MG in SODIUM CHLORIDE 0.9% INJ 100 ML IV SCH ×2 (04:00→14:04)
[2017-03-22] MEDS: CHLORHEXIDINE GLUCONATE 2 % 1 PACK (2 CLOTHS) TOP SCH (04:00)
[2017-03-22] MEDS: HEPARIN SODIUM - SQ 10,000 UNITS/ML VIAL SQ SCH (04:01)
[2017-03-22 08:00] VITALS: BP 146/81; PULSE 79; RESP 20; TEMP 98.4; O2SAT 99
[2017-03-22] MEDS: INSULIN ASPART SUPPLEMENTAL SCALE SQ SCH ×2 (08:00→12:00)
[2017-03-22] MEDS: SODIUM CHLORIDE 0.9% FLUSH 10 ML FLUSH IV FLUSH SCH (09:00)
[2017-03-22] MEDS: THIAMINE HCL 100 MG TAB PO SCH (09:48)
[2017-03-22] MEDS: amLODIPine BESYLATE 5 MG TAB PO SCH (09:48)
[2017-03-22] MEDS: LISINOPRIL 10 MG TAB PO SCH (09:48)
[2017-03-22] MEDS: GABAPENTIN 400 MG CAP PO SCH ×2 (09:48→15:31)
[2017-03-22] MEDS: DOCUSATE SODIUM 50 MG/SENNA 8.6 MG TAB PO SCH (09:49)
[2017-03-22] MEDS: VANCOMYCIN 500 MG VIAL (FOR ORAL USE ONLY) PO SCH (09:50)
--- NOTE | 2017-03-22 11:14 | HHI.FF ---
Face to Face Verification Diagnosis: (1) C. difficile colitis Physical Therapy Order: Evaluate and Treat, Improve ambulation, Strength and gait training Home Health Nursing Order: Medical education Signs/symptoms of disease process Medication education-adverse effect Nursing assessment with vital signs I have seen patient Rahul Adams on 03/22/17. My clinical findings support the need for the requested home health care services because: Ltd mobility - disease progression I certify that my clinical findings support that this patient is homebound because: Unsafe to leave home unassisted Kashif Barrett MD Mar 22, 2017 11:14
[2017-03-22 12:00] VITALS: BP 163/88; PULSE 75; RESP 18; TEMP 98.5; O2SAT 99
--- NOTE | 2017-03-22 13:55 | HHI.IDPN ---
Subjective Subjective Remarks is a 61-year-old male who presented to [facility] with complaints of abdominal pain. The patient reported that the pain started around 3:00 am 03/14. The patient had been drinking at a binging constitution party lasting over several days. Upon initiation of lower abdominal pain , he began having progressive nausea and vomiting with escalation of abdominal pain. He also reported having frequent bouts of diarrhea. The patient's medical history significant for previous episodes of diverticulitis. He also reports one other episode of pancreatitis approx 10 yrs back after binge drinking after his divorce. Patient reports this is his 6th episode of Cdiff positive diarrhea. He reports he was being considered for fecal transplantation as outpatient. With this background he reports he was admitted at [facility]. He was noted to have marked tachycardia en route to the hospital and on arrival to [facility] heart rate 170's. The patient's medical history is also significant for 6 weeks ago having herpes zoster affecting his left eye, and has completed medication regimen. Imaging and laboratory studies were performed and revealed elevated lipase level as well as hypomagnesemia with a magnesium level initially of 0.6, he received 2 g of magnesium at that time and was bolused with 2 L normal saline. The patient was transported to [facility]. Critical care medicine wqs consulted. At the time of my evaluation, patient is in the ICU. Awake, not on pressors, provided me history. UO good. Diarrhea 3 episodes liquid stool. ID consulted for eval and MMent of Sepsis, gram negative bacteremia and recurrent Cdiff colitis. Overnight events reviewed. No fevers No rash No abd pain Diarrhea better decreased freq and volume. More formed. Antibiotics Azactam IV Vanco Oral Lines Line sites with no e/o infection Past Medical History Hypertension History of diverticulitis GERD Arthritis History of pancreatitis Recurrent clostridium difficile Rectal surgery Left-sided chest tube Back surgery 2 Neck surgery Left Achilles tendon surgery Left hip hemiarthroplasty Allergies: Coded Allergies: codeine (Verified Allergy, Severe, RASH, 03/16/17) ibuprofen (Verified Allergy, Severe, Swelling, 03/16/17) of eyes levofloxacin (Verified Allergy, Severe, ACHILLES TENDON PROBLEM, 03/16/17) metronidazole (Verified Allergy, Severe, 03/16/17) Objective . Vital Signs Date Time Temp Pulse Resp B/P (MAP) Pulse Ox O2 Delivery O2 Flow Rate FiO2 11/27/17 08:00 98.4 79 20 146/81 (102) 99 03/22/17 04:39 18 03/22/17 04:00 98.4 76 17 149/78 (101) 97 03/22/17 00:00 98.7 77 17 146/77 (100) 99 03/21/17 20:00 98.2 79 18 150/74 (99) 100 03/21/17 16:08 98.8 76 18 109/70 (83) 100 . Laboratory Tests Test 03/21/17 06:38 White Blood Count 7.7 TH/MM3 Red Blood Count 2.73 MIL/MM3 Hemoglobin 8.3 GM/DL Hematocrit 25.3 % Mean Corpuscular Volume 92.5 FL Mean Corpuscular Hemoglobin 30.3 PG Mean Corpuscular Hemoglobin Concent 32.8 % Red Cell Distribution Width 20.2 % Platelet Count 293 TH/MM3 Mean Platelet Volume 8.5 FL Neutrophils (%) (Auto) 58.4 % Lymphocytes (%) (Auto) 20.8 % Monocytes (%) (Auto) 16.4 % Eosinophils (%) (Auto) 3.4 % Basophils (%) (Auto) 1.0 % Neutrophils # (Auto) 4.5 TH/MM3 Lymphocytes # (Auto) 1.6 TH/MM3 Monocytes # (Auto) 1.3 TH/MM3 Eosinophils # (Auto) 0.3 TH/MM3 Basophils # (Auto) 0.1 TH/MM3 CBC Comment AUTO DIFF Differential Total Cells Counted 100 Neutrophils % (Manual) 58 % Band Neutrophils % 6 % Lymphocytes % 20 % Monocytes % 10 % Eosinophils % 1 % Neutrophils # (Manual) 5.3 TH/MM3 Metamyelocytes 2 % Myelocytes 3 % Differential Comment FINAL DIFF MANUAL Platelet Estimate NORMAL Platelet Morphology Comment ENLARGED Laboratory Tests Test 03/21/17 06:38 Blood Urea Nitrogen 9 MG/DL Creatinine 1.03 MG/DL Random Glucose 103 MG/DL Total Protein 6.2 GM/DL Albumin 2.5 GM/DL Calcium Level 8.5 MG/DL Magnesium Level 0.8 MG/DL Alkaline Phosphatase 106 U/L Aspartate Amino Transf (AST/SGOT) 26 U/L Alanine Aminotransferase (ALT/SGPT) 93 U/L Total Bilirubin 0.6 MG/DL Sodium Level 137 MEQ/L Potassium Level 4.4 MEQ/L Chloride Level 107 MEQ/L Carbon Dioxide Level 20.8 MEQ/L Anion Gap 9 MEQ/L Estimat Glomerular Filtration Rate 73 ML/MIN Imaging Last Impressions Abdomen/Pelvis CT 03/16/17 1126 Signed Impressions: Service Date/Time: Thursday, March 16, 2017 12:08 - CONCLUSION: 1. Uncomplicated colonic diverticulosis. 2. Stable diffuse urinary bladder wall thickening is noted. 3. Degenerative changes and scoliosis of the thoracolumbar spine. 4. Enlarged prostate. 5. Stable lower pole left renal cyst measuring 17 mm. 6. Chronic stable perinephric streakiness bilaterally. 7. Chronic scarring within the lingula of the left upper lobe. Nilesh Simms MD Physical Exam GENERAL: This is a well-nourished, well-developed patient, in no apparent distress. SKIN: No rashes, ecchymoses or lesions. Cool and dry. HEAD: Atraumatic. Normocephalic. No temporal or scalp tenderness. EYES: Pupils equal round and reactive. Extraocular motions intact. No scleral icterus. No injection or drainage. ENT: Nose without bleeding, purulent drainage or septal hematoma. Throat without erythema, tonsillar hypertrophy or exudate. Uvula midline. Airway patent. NECK: Trachea midline. Supple, nontender, no meningeal signs. CARDIOVASCULAR: Regular rate and rhythm without murmurs, gallops, or rubs. RESPIRATORY: Clear to auscultation. Breath sounds equal bilaterally. No wheezes , rales, or rhonchi. GASTROINTESTINAL: Abdomen soft, diffuse tenderness. MUSCULOSKELETAL: Extremities without clubbing, cyanosis, or edema. No joint tenderness, effusion, or edema noted. No calf tenderness. Negative Homans sign bilaterally. NEUROLOGICAL: Awake and alert. Cranial nerves II through XII intact. Motor and sensory grossly within normal limits. Five out of 5 muscle strength in all muscle groups. Normal speech. Psych cooperative IV line sites with no e.o infection. Assessment & Plan Remarks Sepsis present on admission Kleb pneumo bacteremia ? abd source appears transient. Cdiff positive diarrhea/colitis Recurrent Cdiff Acute pancreatitis Acute renal failure: sepsis, prerenal Abnormal liver function tests: sepsis, alcoholism related. Recs DC Azactam IV. Continue oral Vanco (scripts written) Start oral bactrim for 9 more days. Outpt follow up with GI re: fecal transplant appt. Shraddha Perry d.w pt: Ideally would prefer Levaquin but due to Achilles injury pt would like to avoid levaquin. He also would like to avoid IV antibiotics and PICC line. Since it is transient bacteremia will try Bactrim Counseled pt if any signs of recurrent infection: fever, chills, night sweats or any new symptoms to see PCP or come back to ED for repeat blood cultures and evaluation. counseled about Cdiff care and hygiene. His spouse also has Cdiff in recent past. Time spent in excess of 40 mins: critical thinking, allergy review and update. Matilda Henderson MD Mar 22, 2017 13:55
[2017-03-22] MEDS ORDERED: SULFAMETHOXAZOLE-TRIMETHOPRIM DS 800-160 MG TAB PO SCH (14:00)
[2017-03-22] MEDS ORDERED: VANC250C2 PO (14:01)
[2017-03-22] MEDS ORDERED: SULF1TAB23 PO (14:01)
--- NOTE | 2017-03-22 14:03 | HHI.DS ---
Discharge Summary Admission Date Mar 16, 2017 at 13:10 Discharge Date: Mar 22, 2017 Admitting Diagnosis ACUTE PANCREATITIS, HYPOMAGNESEMIA, SHAVONNE, TACHYCARDIA (1) C. difficile colitis ICD Code: A04.7 - Enterocolitis due to Clostridium difficile Diagnosis: Principal Status: Acute Procedures None Brief History - From Admission This 61-year-old male that presented to [facility] with complaints of abdominal pain. The patient reported that the pain started around 3:00 am 03/14. The patient had been drinking at an expansive libertarian lasting over several days. Upon initiation of lower abdominal pain , he began having progressive nausea and vomiting with escalation of abdominal pain. He also reported having frequent bouts of diarrhea. The patient's medical history significant for previous episodes of diverticulitis. He previously has been diagnosed with C. difficile. He reported to the ED physician that he has being considered for a stool transplant. He was noted to have marked tachycardia en route to the hospital and on arrival to [facility] heart rate 170's. Patient admits to a history of being a heavy drinker. He has had previous bouts of pancreatitis in the past couple years. The patient's medical history is also significant for 6 weeks ago having herpes zoster affecting his left eye , and has completed medication regimen. Imaging and laboratory studies were performed and revealed elevated lipase level as well as hypomagnesemia with a magnesium level initially of 0.6, he received 2 g of magnesium at that time and was bolused with 2 L normal saline. The patient was transported to [facility]. Critical care medicine is consulted. 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 ) Asthma: No Autoimmune Disease: No Anxiety: Yes Depression: No Heart Rhythm Problems: No Cancer: No Cardiovascular Problems: Yes (HTN) High Cholesterol: No Chemotherapy: No Chest Pain: No Congestive Heart Failure: No COPD: No Cerebrovascular Accident: No Diabetes: No Diminished Hearing: Yes (L ear ) Diverticulitis: Yes Endocrine: No Gastrointestinal Disorders: Yes (COLONOSCOPY JANUARY 2014) GERD: Yes Genitourinary: No Headaches: No Hiatal Hernia: No Heparin Induced Thrombocytopen: No Hypertension: Yes Immune Disorder: No Implanted Vascular Access Dvce: Yes Kidney Stones: No Musculoskeletal: Yes Neurologic: Yes Psychiatric: Yes Reproductive: No Respiratory: No Immunizations Current: Yes Migraines: No Pancreatitis: Yes Radiation Therapy: No Renal Failure: No Seizures: Yes (IN PAST R/T ALCOHOL WITHDRAWAL 2013) Sickle Cell Disease: No Sleep Apnea: No Thyroid Disease: No Ulcer: No PNEUMOCCOCAL Vaccine (Year): 2 Past Surgical History Abdominal Surgery: No AICD: No Arteriovenous Shunt: No Body Medical Devices: DISSOLVABLE SCREW IN LEFT ANKLE - placed 2014 Cardiac Surgery: No Ear Surgery: No Endocrine Surgery: No Eye Surgery: No Genitourinary Surgery: No Gynecologic Surgery: No Hysterectomy: No Insulin Pump: No Joint Replacement: Yes (L FEMUR BONE 06/2015) Neurologic Surgery: No Oral Surgery: No Pacemaker: No Thoracic Surgery: No Other Surgery: Yes (2 BACK AND ONE NECK SURGERIES-microdiskectomy,left achilles tendon repair) Social History Alcohol Use: Yes (3 TOv4 times a week, states rum) Tobacco Use: No Substance Use: Yes (states smokes mariMirriadana [id number]) Allergies-Medications Allergies-Medications (Allergen,Severity, Reaction): Coded Allergies: codeine (Verified Allergy, Severe, RASH, 03/16/17) ibuprofen (Verified Allergy, Severe, Swelling, 03/16/17) of eyes levofloxacin (Verified Allergy, Severe, ACHILLES TENDON PROBLEM, 03/16/17) metronidazole (Verified Allergy, Severe, 03/16/17) sulfamethoxazole (Verified Allergy, Severe, Diarrhea, 03/16/17) trimethoprim (Verified Allergy, Severe, Diarrhea, 03/16/17) Reported Meds & Prescriptions Reported Meds & Active Scripts Active Acyclovir 800 Mg Tab 800 Mg PO 5 TIMES A DAY 7 Days Reported Amlodipine (Amlodipine Besylate) 5 Mg Tab 5 Mg PO DAILY Lisinopril 20 Mg Tab 20 Mg PO DAILY Pantoprazole (Pantoprazole Sodium) 40 Mg Tab 40 Mg PO DAILY Alprazolam 0.5 Mg Tab 0.5 Mg PO BID ROS Review of Systems General / Constitutional: No: Fever, Chills Eyes: No: Diploplia, Blurred Vision HENT: No: Headaches, Lightheadedness, Sore Throat Cardiovascular: Positive: Palpitations, Tachycardia Respiratory: No: Cough, Shortness of Breath Gastrointestinal: Positive: Nausea, Vomiting, Diarrhea, Abdominal Pain Genitourinary: No: Urgency, Frequency Musculoskeletal: No: Myalgias, Arthralgias Skin: No Rash, No Itching Neurologic: Positive: Weakness, No: Syncope Psychiatric: Positive: Substance Abuse Endocrine: No: Heat Intolerance Hematologic/Lymphatic: No: Easy Bruising CBC/BMP: 03/21/17 0638 03/21/17 0638 Significant Findings Laboratory Tests Test 03/21/17 06:38 Red Blood Count 2.73 MIL/MM3 (4.50-5.90) Hemoglobin 8.3 GM/DL (13.0-17.0) Hematocrit 25.3 % (39.0-51.0) Red Cell Distribution Width 20.2 % (11.6-17.2) Monocytes (%) (Auto) 16.4 % (0.0-8.0) Monocytes # (Auto) 1.3 TH/MM3 (0-0.9) Monocytes % 10 % (0-8) Metamyelocytes 2 % (0-1) Myelocytes 3 % (0-0) Platelet Morphology Comment ENLARGED (NORMAL) Total Protein 6.2 GM/DL (6.4-8.2) Albumin 2.5 GM/DL (3.4-5.0) Magnesium Level 0.8 MG/DL (1.5-2.5) Alanine Aminotransferase (ALT/SGPT) 93 U/L (12-78) Carbon Dioxide Level 20.8 MEQ/L (21.0-32.0) Estimat Glomerular Filtration Rate 73 ML/MIN (>89) Imaging Last Impressions Abdomen/Pelvis CT 03/16/17 1126 Signed Impressions: Service Date/Time: Thursday, March 16, 2017 12:08 - CONCLUSION: 1. Uncomplicated colonic diverticulosis. 2. Stable diffuse urinary bladder wall thickening is noted. 3. Degenerative changes and scoliosis of the thoracolumbar spine. 4. Enlarged prostate. 5. Stable lower pole left renal cyst measuring 17 mm. 6. Chronic stable perinephric streakiness bilaterally. 7. Chronic scarring within the lingula of the left upper lobe. Nilesh Simms MD PE at Discharge GENERAL: Well-developed well-nourished SKIN: Warm and dry. Multiple ecchymosis and petechial bruising bilateral extremities noted. Noted open abrasions, dressing right wrist C/D/I HEAD: Atraumatic. Normocephalic. Well healed scarring on forehead and nasal bridge from herpes zoster EYES: Pupils equal and round, 3 mm and brisk. No scleral icterus. EOMI. No injection or drainage. CARDIOVASCULAR: Normal rate, regular rhythm. RESPIRATORY: No accessory muscle use. Clear to auscultation. Breath sounds equal bilaterally. Bilateral chest excursion. No wheezing GASTROINTESTINAL: Abdomen soft, non-tender, nondistended. No guarding. Normoactive bowel sounds. MUSCULOSKELETAL: Extremities without clubbing, cyanosis, or edema. No obvious deformities. NEUROLOGICAL: Awake and alert nonfocal Hospital Course Acute pancreatitis. Improving. Advance diet as tolerated. Pain management continue oxycodone and IV Dilaudid for breakthrough pain. Counseled regarding narcotics Alcohol withdrawal. Improving continue CIWA protocol. Counseled Transaminitis secondary to alcohol. Hepatitis screen negative. Improving Monitor Recurrent C. difficile. Improving. Continue vancomycin per ID. Outpatient follow-up with GI for transplant Transient Klebsiella pneumonia bacteremia. S/p IV aztreonam switch to po Bactrim per ID. Repeat blood cultures negative Diffuse bladder wall thickening and enlarged prostate. Urinalysis negative. Patient sees outpatient Recent left supraorbital herpes zoster status post treatment. Stable ct Neurontin and monitor DVT prophylaxis with heparin Pt Condition on Discharge: Stable Discharge Disposition: Disch w/ Home Health Serv Discharge Time: > 30 minutes Discharge Instructions DIET: Follow Instructions for: Heart Healthy Diet Activities you can perform: Regular-No Restrictions Activities to Avoid: Driving Follow up Referrals: Gastroenterology - 1 Week PCP Follow-up - 1 Week New Medications: Vancomycin (Vancomycin) 250 Mg Cap 500 MG PO QID for Infection, #144 CAP 0 Refills Metoprolol Tartrate (Metoprolol Tartrate) 25 Mg Tab 25 MG PO Q8HR for Blood Pressure Management, #90 TAB Oxycodone (Oxycodone) 5 Mg Tab 5 MG PO Q6HR PRN for pain 1-10, #28 TAB Sulfamethoxazole-Trimethoprim (Sulfamethoxazole-Trimethoprim) 800-160 Mg Tab 1 TAB PO Q12HR for Infection, #17 TAB Thiamine HCl (Gnp Vitamin B-1) 100 Mg Tab 100 MG PO DAILY for Alcohol Detox, #30 TAB Continued Medications: Alprazolam (Xanax) 0.5 Mg Tab 0.5 MG PO Q12HR PRN for ANXIETY, TAB 0 Refills Amlodipine (Amlodipine) 5 Mg Tab 5 MG PO DAILY for Blood Pressure Management, #30 TAB 0 Refills Gabapentin (Gabapentin) 600 Mg Tab 600 MG PO TID, #90 TAB 0 Refills Lisinopril (Lisinopril) 20 Mg Tab 20 MG PO DAILY, #30 TAB 0 Refills Pantoprazole (Pantoprazole) 40 Mg Tab 40 MG PO DAILY for Reflux, #30 TAB 0 Refills Discontinued Medications: Acyclovir (Acyclovir) 800 Mg Tab 800 MG PO 5 TIMES A DAY for Mgmt Viral Infection for 7 Days, #35 TAB 0 Refills Alprazolam (Alprazolam) 0.5 Mg Tab 0.5 MG PO BID for ANXIETY, TAB 0 Refills Amlodipine (Amlodipine) 5 Mg Tab 5 MG PO DAILY for Blood Pressure Management, #30 TAB 0 Refills Lisinopril (Lisinopril) 20 Mg Tab 20 MG PO DAILY, #30 TAB 0 Refills Oxycodone HCl/Acetaminophen (Oxycodone-Acetaminophen 5-325) 5 Mg-325 Mg Tablet Q6HR PRN for PAIN SCALE 1 TO 5 Prednisone (Prednisone) 50 Mg Tab 50 MG PO DAILY, TAB 0 Refills Promethazine (Promethazine) 12.5 Mg Tab 12.5 MG PO Q4H, TAB 0 Refills Triamcinolone Acetonide (Topic (Triamcinolone Acetonide) 100 % Pow 0.1 % EXTERNAL TID Kashif Barrett MD Mar 22, 2017 14:03
[2017-03-22] MEDS ORDERED: VANCOMYCIN 500 MG VIAL (FOR ORAL USE ONLY) PO SCH (18:00)
== END 2017-03-22 16:05 | disposition home health service (06) | DRG 439 ==
LOC: PHED 10:27 → PHEDA 13:10 → HIMW 15:30 → N04A 03-19 15:47
PROVIDERS: ADMIT Internal Medicine; ATTEND Internal Medicine
DX: K85.20 Alcohol induced acute pancreatitis without necrosis or infection (principal); N17.9 Acute kidney failure, unspecified; F10.231 Alcohol dependence with withdrawal delirium; A04.71 Enterocolitis due to Clostridium difficile, recurrent; E87.1 Hypo-osmolality and hyponatremia; R78.81 Bacteremia; E83.42 Hypomagnesemia; K57.30 Diverticulosis of large intestine without perforation or abscess without bleeding; R00.0 Tachycardia, unspecified; M19.90 Unspecified osteoarthritis, unspecified site; F41.9 Anxiety disorder, unspecified; I10 Essential (primary) hypertension; H91.92 Unspecified hearing loss, left ear; K21.9 Gastro-esophageal reflux disease without esophagitis; D64.9 Anemia, unspecified; E87.6 Hypokalemia; R73.9 Hyperglycemia, unspecified; E86.0 Dehydration; B96.1 Klebsiella pneumoniae [K. pneumoniae] as the cause of diseases classified elsewhere; E83.51 Hypocalcemia; K29.70 Gastritis, unspecified, without bleeding; N28.1 Cyst of kidney, acquired; Z78.1 Physical restraint status; Z96.642 Presence of left artificial hip joint; R74.0 Nonspecific elevation of levels of transaminase and lactic acid dehydrogenase [LDH]
CPT/HCPCS: 74176; 76937; 80048; 80053; 80307; 81001; 82948; 83605; 83690; 83735; 84100; 84484; 85007; 85025; 85027; 87040; 87077; 87186; 87205; 87493; 87641; 93005; 96361; 96365; 96375; C9113; J0610; J1170; J1630; J1644; J1815; J2060; J2405; J2543; J3411; J3475; J3480; J7030; J7040; J7050

== ENCOUNTER 2017-03-27 12:34 | Emergency (ER) | payer BC ==
[~2017-03-27 12:34] MED LIST changes: -ACYC800T PO; +ALPR.5 PO; -ALPR0.5T3 PO; +AMLO5TAB2 PO; +GABA600T PO; -LACTPOW68 PO; -LIDO5%T TOPICAL; +LISI-515 PO; -NEUR400C PO; +OXYC-392 PO; -PERC5TAB12 PO; -PRED1SUS6 LEFT EYE; -PRED50 PO; -PROM12.54 PO; +SULF1TAB23 PO; +THIA100 PO; -TRAM50TA PO; -VANC125C3 PO; +VANC250C2 PO; -ZIRG0.15 LEFT EYE
[2017-03-27 12:44] VITALS: BP 136/90; PULSE 131; RESP 20; TEMP 98.7; O2SAT 98
--- NOTE | 2017-03-27 13:49 | PD ---
HPI Chief Complaint: Fall Time Seen by Provider: 13:32 Travel History International Travel<30 days: No Contact w/Intl Traveler<30days: No Traveled to known affect area: No History of Present Illness HPI 62-year-old male complains of left shoulder and left wrist pain. Patient states that he fell 4 days ago. Patient states that he fell into the wall. Patient denies loss of consciousness. Patient denies any headache or neck pain. Patient complains sharp pain localized left shoulder and left wrist. Patient denies any pain radiation. Patient denies any other injury. Patient was admitted to [facility] March 16 and discharged March 22 diagnosis of C. difficile colitis. Patient was discharged home with prescription for vancomycin, oxycodone, Bactrim DS and thiamine. Patient was advised to continue with alprazolam, amlodipine, gabapentin, lisinopril, pantoprazole. 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 ) Asthma: No Autoimmune Disease: No Anxiety: Yes Depression: No Heart Rhythm Problems: No Cancer: No Cardiovascular Problems: No High Cholesterol: No Chemotherapy: No Chest Pain: No Congestive Heart Failure: No COPD: No Cerebrovascular Accident: No Diabetes: No Diminished Hearing: Yes (L ear ) Diverticulitis: Yes Endocrine: No Gastrointestinal Disorders: Yes (COLONOSCOPY JANUARY 2014) GERD: Yes Genitourinary: No Headaches: No Hiatal Hernia: No Heparin Induced Thrombocytopen: No Hypertension: Yes Immune Disorder: No Implanted Vascular Access Dvce: Yes Kidney Stones: No Musculoskeletal: No Neurologic: Yes Psychiatric: No Reproductive: No Respiratory: No Immunizations Current: Yes Migraines: No Pancreatitis: Yes Radiation Therapy: No Renal Failure: No Seizures: Yes (2009) Sickle Cell Disease: No Sleep Apnea: No Thyroid Disease: No Ulcer: No Tetanus Vaccination: < 5 Years Influenza Vaccination: Yes PNEUMOCCOCAL Vaccine (Year): 2 Past Surgical History Abdominal Surgery: No AICD: No Arteriovenous Shunt: No Body Medical Devices: DISSOLVABLE SCREW IN LEFT ANKLE - placed 2014 Cardiac Surgery: No Ear Surgery: No Endocrine Surgery: No Eye Surgery: No Genitourinary Surgery: No Gynecologic Surgery: No Hysterectomy: No Insulin Pump: No Joint Replacement: No Neurologic Surgery: No Oral Surgery: No Pacemaker: No Thoracic Surgery: No Other Surgery: Yes (2 BACK AND ONE NECK SURGERIES-microdiskectomy,left achilles tendon repair) Social History Alcohol Use: Yes (3 TOv4 times a week, states rum) Tobacco Use: No Substance Use: Yes (Marijuana ) Allergies-Medications (Allergen,Severity, Reaction): Coded Allergies: codeine (Verified Allergy, Severe, RASH, 03/27/17) ibuprofen (Verified Allergy, Severe, Swelling, 03/27/17) of eyes levofloxacin (Verified Allergy, Severe, ACHILLES TENDON PROBLEM, 03/27/17) metronidazole (Verified Allergy, Severe, 03/27/17) Reported Meds & Prescriptions Reported Meds & Active Scripts Active Vancomycin (Vancomycin HCl) 250 Mg Cap 500 Mg PO QID Sulfamethoxazole-Trimethoprim 800-160 Mg Tab 1 Tab PO Q12HR Gnp Vitamin B-1 (Thiamine HCl) 100 Mg Tab 100 Mg PO DAILY Oxycodone (Oxycodone HCl) 5 Mg Tab 5 Mg PO Q6HR PRN Metoprolol Tartrate 25 Mg Tab 25 Mg PO Q8HR Reported Xanax (Alprazolam) 0.5 Mg Tab 0.5 Mg PO Q12HR PRN Amlodipine (Amlodipine Besylate) 5 Mg Tab 5 Mg PO DAILY Lisinopril 20 Mg Tab 20 Mg PO DAILY Gabapentin 600 Mg Tab 600 Mg PO TID Pantoprazole (Pantoprazole Sodium) 40 Mg Tab 40 Mg PO DAILY Review of Systems General / Constitutional: No: Fever Eyes: No: Visual changes HENT: No: Headaches Cardiovascular: No: Chest Pain or Discomfort Respiratory: No: Shortness of Breath Gastrointestinal: No: Abdominal Pain Genitourinary: No: Dysuria Musculoskeletal: Positive: Pain Skin: No Rash Neurologic: No: Weakness Psychiatric: No: Depression Endocrine: No: Polydipsia Hematologic/Lymphatic: No: Easy Bruising Physical Exam Narrative GENERAL: Well-nourished, well-developed patient. SKIN: Focused skin assessment warm/dry. HEAD: Normocephalic. EYES: No scleral icterus. No injection or drainage. NECK: Supple, trachea midline. No JVD or lymphadenopathy. CARDIOVASCULAR: Regular rate and rhythm without murmurs, gallops, or rubs. RESPIRATORY: Breath sounds equal bilaterally. No accessory muscle use. GASTROINTESTINAL: Abdomen soft, non-tender, nondistended. MUSCULOSKELETAL: No cyanosis, or edema. BACK: Nontender without obvious deformity. No CVA tenderness. Patient has moderate diffuse tenderness over the left shoulder joint. Limited range of motion the left shoulder secondary to pain. Mild soft tissue swelling with moderate tenderness diffuse over the left wrist. Full range of motion of fingers. Data Data Last Documented VS Vital Signs Date Time Temp Pulse Resp B/P (MAP) Pulse Ox O2 Delivery O2 Flow Rate FiO2 03/27/17 12:44 98.7 131 20 136/90 (105) 98 Orders Orders Shoulder, Limited(2vws) (03/27/17 13:43) Wrist, Complete ([id number]) (03/27/17 13:43) Ed Discharge Order (03/27/17 15:07) MDM Medical Decision Making Medical Screen Exam Complete: Yes Emergency Medical Condition: Yes Interpretation(s) X-ray of the left shoulder and left wrist shows chronic changes. No acute process. Differential Diagnosis Differential diagnosis including contusion, sprain, fracture, dislocation. Narrative Course 62-year-old male with left shoulder and left wrist pain. Status post fall. Diagnosis Primary Impression: Contusion of left shoulder Qualified Codes: S40.012A - Contusion of left shoulder, initial encounter Additional Impression: Left wrist sprain Qualified Codes: S63.502A - Unspecified sprain of left wrist, initial encounter Patient Instructions: General Instructions Additional Instructions: Tylenol as needed for pain. Follow-up with personal physician and orthopedist if persistent problem. Med/Other Pt SpecificInfo: No Change to Meds Disposition: 01 DISCHARGE HOME Condition: Stable Matt Rene MD Mar 27, 2017 13:49
--- NOTE | 2017-03-27 15:09 | RADRPT ---
EXAM DATE/TIME: 03/27/2017 14:33 [facility] COMPARISON: No previous studies available for comparison. INDICATIONS : Fell several days ago, has left shoulder pain, limited ROM MEDICAL HISTORY : None. SURGICAL HISTORY : None. ENCOUNTER: Initial ACUITY: 4 - 6 days PAIN SCORE: 10/10 LOCATION: Left shoulder FINDINGS: Two view examination of the left shoulder demonstrates no evidence of fracture or dislocation. The g lenohumeral and acromioclavicular joints are maintained. Bony mineralization is normal. CONCLUSION: 1. No acute fracture or dislocation. Beni Quintero MD on March 27, 2017 at 15:07 Board Certified Radiologist. This report was verified electronically.
--- NOTE | 2017-03-27 15:09 | RADRPT ---
EXAM DATE/TIME: 03/27/2017 14:28 [facility] COMPARISON: No previous studies available for comparison. INDICATIONS : Fell several days ago, has left wrist pain with limited ROM MEDICAL HISTORY : None. SURGICAL HISTORY : None. ENCOUNTER: Initial ACUITY: 4 - 6 days PAIN SCORE: 10/10 LOCATION: Left wrist FINDINGS: There is deformity of the ulnar styloid which may reflect prior injury. Well-corticated osseous fragm ent noted just inferior to the proximal scaphoid, and again likely related to prior injury. Osseous s tructures otherwise intact without evidence for acute bony fracture. Joint spaces are intact. Soft ti ssues are unremarkable. CONCLUSION: 1. Probable sequela of prior ulnar styloid injury with small chronic appearing osseous fragment adjac ent to the proximal scaphoid. 2. No acute fracture or dislocation. Beni Quintero MD on March 27, 2017 at 15:04 Board Certified Radiologist. This report was verified electronically.
== END 2017-03-27 15:25 | disposition home or self-care (01) ==
LOC: PHED 12:34
DX: S40.012A Contusion of left shoulder, initial encounter (principal); S63.502A Unspecified sprain of left wrist, initial encounter; W19.XXXA Unspecified fall, initial encounter
CPT/HCPCS: 73030; 73110; 99284

== ENCOUNTER 2017-04-15 12:03 | Emergency (ER) | payer BC ==
[~2017-04-15] VITALS: Ht 175.3 cm; Wt 64.0 kg
[2017-04-15 12:10] VITALS: BP 128/91; PULSE 112; RESP 18; TEMP 97.8; O2SAT 99
[2017-04-15] MEDS ORDERED: PROM12.54 PO (12:28)
[2017-04-15] MEDS ORDERED: ONDANSETRON HCL 4 MG/2 ML VIAL IVP ONE (12:30)
[2017-04-15] MEDS ORDERED: SODIUM CHLOR 0.9% 1000 ML INJ 1,000 ML IV ONE ×2 (12:30→14:00)
[2017-04-15] MEDS ORDERED: SODIUM CHLORIDE 0.9% FLUSH 10 ML FLUSH IV FLUSH PRN (12:30)
--- NOTE | 2017-04-15 12:40 | PD ---
HPI Chief Complaint: GI Complaint Time Seen by Provider: 12:27 Travel History International Travel<30 days: No Contact w/Intl Traveler<30days: No Traveled to known affect area: No History of Present Illness HPI This patient reports that he developed diarrhea last night. He has history of multiple episodes of C. difficile colitis. He is currently on oral vancomycin. He's not had any diarrhea for the last 2-3 weeks. Denies fever. Has had a few vague abdominal cramps but nothing sustained. Some nausea but no vomiting. Symptoms severity is moderate. He has generalized weakness and has concern for dehydration 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 ) Asthma: No Autoimmune Disease: No Anxiety: Yes Depression: No Heart Rhythm Problems: No Cancer: No Cardiovascular Problems: No High Cholesterol: No Chemotherapy: No Chest Pain: No Congestive Heart Failure: No COPD: No Cerebrovascular Accident: No Diabetes: No Diminished Hearing: Yes (L ear ) Diverticulitis: Yes Endocrine: No Gastrointestinal Disorders: Yes (COLONOSCOPY JANUARY 2014, c diff ) GERD: Yes Genitourinary: No Headaches: No Hiatal Hernia: No Heparin Induced Thrombocytopen: No Hypertension: Yes Immune Disorder: No Implanted Vascular Access Dvce: Yes Kidney Stones: No Musculoskeletal: No Neurologic: Yes Psychiatric: No Reproductive: No Respiratory: No Immunizations Current: Yes Migraines: No Pancreatitis: Yes Radiation Therapy: No Renal Failure: No Seizures: Yes (2009) Sickle Cell Disease: No Sleep Apnea: No Thyroid Disease: No Ulcer: No Influenza Vaccination: Yes PNEUMOCCOCAL Vaccine (Year): 2 Past Surgical History Abdominal Surgery: No AICD: No Arteriovenous Shunt: No Body Medical Devices: DISSOLVABLE SCREW IN LEFT ANKLE - placed 2014 Cardiac Surgery: No Ear Surgery: No Endocrine Surgery: No Eye Surgery: No Genitourinary Surgery: No Gynecologic Surgery: No Hysterectomy: No Insulin Pump: No Joint Replacement: No Neurologic Surgery: No Oral Surgery: No Pacemaker: No Thoracic Surgery: No Other Surgery: Yes (2 BACK AND ONE NECK SURGERIES-microdiskectomy,left achilles tendon repair) Social History Alcohol Use: No (clean 48 days per pt ) Tobacco Use: No Substance Use: Yes (Marijuana , etoh ) Allergies-Medications (Allergen,Severity, Reaction): Coded Allergies: codeine (Verified Allergy, Severe, RASH, 04/15/17) ibuprofen (Verified Allergy, Severe, Swelling, 04/15/17) of eyes levofloxacin (Verified Allergy, Severe, ACHILLES TENDON PROBLEM, 04/15/17) metronidazole (Verified Allergy, Severe, 04/15/17) Reported Meds & Prescriptions Reported Meds & Active Scripts Active Vancomycin (Vancomycin HCl) 250 Mg Cap 500 Mg PO QID Sulfamethoxazole-Trimethoprim 800-160 Mg Tab 1 Tab PO Q12HR Gnp Vitamin B-1 (Thiamine HCl) 100 Mg Tab 100 Mg PO DAILY Reported Promethazine (Promethazine HCl) 12.5 Mg Tab 12.5 Mg PO Q6H PRN Xanax (Alprazolam) 0.5 Mg Tab 0.5 Mg PO Q12HR PRN Amlodipine (Amlodipine Besylate) 5 Mg Tab 5 Mg PO DAILY Lisinopril 20 Mg Tab 20 Mg PO DAILY Review of Systems General / Constitutional: No: Fever Eyes: No: Visual changes HENT: No: Headaches Cardiovascular: No: Chest Pain or Discomfort Respiratory: No: Shortness of Breath Gastrointestinal: Positive: Diarrhea, No: Abdominal Pain Genitourinary: No: Dysuria Musculoskeletal: Positive: Weakness, No: Pain Skin: No Rash Neurologic: Positive: Weakness Psychiatric: No: Depression Endocrine: No: Polydipsia Hematologic/Lymphatic: No: Easy Bruising Physical Exam Narrative GENERAL: Well-nourished, well-developed patient in no apparent distress. SKIN: Focused skin assessment reveals no rash and nodules. Skin is Warm and dry. HEAD: Atraumatic. Normocephalic. EYES: Pupils equal and round. No scleral icterus. No injection or drainage. ENT: No nasal bleeding or discharge. Mucous membranes pink and moist. NECK: Trachea midline. No JVD. CARDIOVASCULAR: Regular rate and rhythm. No murmur appreciated. RESPIRATORY: No accessory muscle use. Clear to auscultation. Breath sounds equal bilaterally. GASTROINTESTINAL: Abdomen soft, non-tender, nondistended. Hepatic and splenic margins not palpable. MUSCULOSKELETAL: No obvious deformities. No clubbing. No cyanosis. No edema. NEUROLOGICAL: Awake and alert. No obvious cranial nerve deficits. Motor grossly within normal limits. Normal speech. PSYCHIATRIC: Appropriate mood and affect; insight and judgment normal. Data Data Last Documented VS Vital Signs Date Time Temp Pulse Resp B/P (MAP) Pulse Ox O2 Delivery O2 Flow Rate FiO2 04/15/17 12:10 97.8 112 18 128/91 (103) 99 Orders Orders Complete Blood Count With Diff (04/15/17 12:27) Comprehensive Metabolic Panel (04/15/17 12:27) Lipase (04/15/17 12:27) Iv Access Insert/Monitor (04/15/17 12:27) Ecg Monitoring (04/15/17 12:27) Sodium Chloride 0.9% Flush (Ns Flush) (04/15/17 12:30) Ondansetron Inj (Zofran Inj) (04/15/17 12:30) Sodium Chlor 0.9% 1000 Ml Inj (Ns 1000 M (04/15/17 12:30) Ns 1000ml Wide Open 2000 Ml/Hr (04/15/17 14:00) Labs Laboratory Tests Test 04/15/17 12:45 White Blood Count 12.1 TH/MM3 Red Blood Count 3.12 MIL/MM3 Hemoglobin 9.4 GM/DL Hematocrit 27.5 % Mean Corpuscular Volume 88.1 FL Mean Corpuscular Hemoglobin 30.0 PG Mean Corpuscular Hemoglobin Concent 34.1 % Red Cell Distribution Width 18.0 % Platelet Count 463 TH/MM3 Mean Platelet Volume 8.6 FL Neutrophils (%) (Auto) 67.6 % Lymphocytes (%) (Auto) 22.7 % Monocytes (%) (Auto) 5.8 % Eosinophils (%) (Auto) 1.3 % Basophils (%) (Auto) 2.6 % Neutrophils # (Auto) 8.1 TH/MM3 Lymphocytes # (Auto) 2.8 TH/MM3 Monocytes # (Auto) 0.7 TH/MM3 Eosinophils # (Auto) 0.2 TH/MM3 Basophils # (Auto) 0.3 TH/MM3 CBC Comment DIFF FINAL Differential Comment Blood Urea Nitrogen 18 MG/DL Creatinine 1.90 MG/DL Random Glucose 104 MG/DL Total Protein 8.1 GM/DL Albumin 3.1 GM/DL Calcium Level 9.5 MG/DL Alkaline Phosphatase 77 U/L Aspartate Amino Transf (AST/SGOT) 16 U/L Alanine Aminotransferase (ALT/SGPT) 22 U/L Total Bilirubin 0.3 MG/DL Sodium Level 134 MEQ/L Potassium Level 4.8 MEQ/L Chloride Level 103 MEQ/L Carbon Dioxide Level 19.9 MEQ/L Anion Gap 11 MEQ/L Estimat Glomerular Filtration Rate 36 ML/MIN Lipase 290 U/L [facility] Medical Decision Making Medical Screen Exam Complete: Yes Emergency Medical Condition: Yes Medical Record Reviewed: Yes Differential Diagnosis Clostridium difficile colitis, dehydration, electrolyte abnormality Narrative Course I have reviewed the patient's electronic medical record. Patient was discharged March 22, 2017 after a bout of C. difficile colitis IV placed CBC shows minimal leukocytosis and anemia metabolic profile shows decreased creatinine and GFR from prior with normal bun LFT's I reviewed lipase is normal I gave him IV Zofran 1 L normal saline IV bolus Gave him a second liter bolus This point he is not tachycardic nor hypotensive. He is a soft benign abdomen. He looks clinically well Stool was sent to retest for C. difficile He will need to discuss with his GI and infectious disease physicians as to what to do if he does get recurrent C. difficile while taking vancomycin and being allergic to metronidazole. He supposedly is supposed to be getting a stool transplant Diagnosis Primary Impression: Diarrhea Qualified Codes: A09 - Infectious gastroenteritis and colitis, unspecified Additional Impressions: Acute on chronic renal insufficiency Dehydration Additional Instructions: The patient was advised to follow up with their physician and return if they worsen. Med/Other Pt SpecificInfo: Other Disposition: DISCHARGE HOME Condition: Stable Zane Johnson MD Apr 15, 2017 12:39
[2017-04-15 13:10] LABS: AUTOMATED NEUTROPHIL # 8.1 TH/MM3 (1.8-7.7); BASOPHIL # 0.3 TH/MM3 (0-0.2); BASOPHIL % 2.6 % (0.0-2.0); EOSINOPHIL # 0.2 TH/MM3 (0-0.4); EOSINOPHIL % 1.3 % (0.0-4.0); HEMATOCRIT 27.5 % (39.0-51.0); HEMOGLOBIN 9.4 GM/DL (13.0-17.0); LYMPH % 22.7 % (9.0-44.0); LYMPHOCYTE # 2.8 TH/MM3 (1.0-4.8); MEAN CELL VOLUME 88.1 FL (80.0-100.0); MEAN CORPUSCULAR HGB CONC 34.1 % (32.0-36.0); MEAN PLATELET VOLUME 8.6 FL (7.0-11.0); MONO % 5.8 % (0.0-8.0); MONOCYTE # 0.7 TH/MM3 (0-0.9); NEUT % 67.6 % (16.0-70.0); PLATELET COUNT 463 TH/MM3 (150-450); RED BLOOD COUNT 3.12 MIL/MM3 (4.50-5.90); WHITE BLOOD COUNT 12.1 TH/MM3 (4.0-11.0)
[2017-04-15 13:21] LABS: CHLORIDE 103 MEQ/L (98-107); SODIUM (NA) 134 MEQ/L (136-145)
[2017-04-15 13:24] LABS: CALCIUM 9.5 MG/DL (8.5-10.1)
[2017-04-15 13:25] LABS: ALBUMIN 3.1 GM/DL (3.4-5.0); BICARBONATE 19.9 MEQ/L (21.0-32.0); BLOOD UREA NITROGEN 18 MG/DL (7-18); GLUCOSE,RANDOM 104 MG/DL (74-106); LIPASE 290 U/L (73-393)
[2017-04-15 13:28] LABS: ALT (GPT) 22 U/L (12-78); AST (GOT) 16 U/L (15-37); GLOMERULAR FILTRATION RATE 36 ML/MIN (>89)
[2017-04-15 13:29] LABS: TOTAL BILIRUBIN ADULT 0.3 MG/DL (0.2-1.0); TOTAL PROTEIN 8.1 GM/DL (6.4-8.2)
[2017-04-15 13:30] LABS: ALKALINE PHOSPHATASE 77 U/L (45-117)
[2017-04-15 15:02] VITALS: BP 142/83
== END 2017-04-15 15:07 | disposition home or self-care (01) ==
LOC: PHED 12:03
DX: A09 Infectious gastroenteritis and colitis, unspecified (principal); N28.9 Disorder of kidney and ureter, unspecified; E86.0 Dehydration; I10 Essential (primary) hypertension; K21.9 Gastro-esophageal reflux disease without esophagitis; M19.012 Primary osteoarthritis, left shoulder; M19.011 Primary osteoarthritis, right shoulder
CPT/HCPCS: 80053; 83690; 85025; 87493; 96361; 96374; 99284; J2405; J7030

== ENCOUNTER 2017-04-16 22:27 | Observation (INO) | payer BC ==
[~2017-04-16] VITALS: Ht 175.3 cm; Wt 65.1 kg
[~2017-04-16 22:27] MED LIST changes: -GABA600T PO; -METO25TA3 PO; -OXYC-392 PO; -PANT40TA3 PO; +PROM12.54 PO
[2017-04-16 22:33] VITALS: BP 146/94; PULSE 107; TEMP 98.5; O2SAT 98
[2017-04-16 22:55] VITALS: RESP 14; O2SAT 97
[2017-04-16] MEDS ORDERED: SODIUM CHLOR 0.9% 1000 ML INJ 1,000 ML IV ONE (22:57)
[2017-04-16 23:00] VITALS: BP 160/97; PULSE 100; RESP 14; O2SAT 97
[2017-04-16] MEDS ORDERED: ONDANSETRON HCL 4 MG/2 ML VIAL IV PUSH ONE (23:00)
[2017-04-16] MEDS ORDERED: SODIUM CHLORIDE 0.9% FLUSH 10 ML FLUSH IVF PRN (23:00)
--- NOTE | 2017-04-16 23:49 | RADRPT ---
EXAM DATE/TIME: 04/16/2017 23:10 [facility] COMPARISON: No previous studies available for comparison. INDICATIONS : Diarrhea. MEDICAL HISTORY : Pancreatitis. Diverticulitis. Gastroesophageal reflux disease.Seizures. Hypertension SURGICAL HISTORY : Left hip replacement ENCOUNTER: Initial ACUITY: 2 days PAIN SCORE: 5/10 LOCATION: Bilateral abdomen FINDINGS: There is air present in normal caliber colon and in mildly distended small bowel loops. There are occ asional air-fluid levels on the upright film. No evidence of pneumoperitoneum. Left pelvic phlebolith . No suspicious calcific densities. Left total hip arthroplasty. Mild degenerative changes in the spi ne. CONCLUSION: Slight nonspecific gaseous distention of bowel Alonzo Gates MD on April 16, 2017 at 23:45 Board Certified Radiologist. This report was verified electronically.
[2017-04-16 23:56] LABS: AUTOMATED NEUTROPHIL # 5.7 TH/MM3 (1.8-7.7); BASOPHIL # 0.2 TH/MM3 (0-0.2); BASOPHIL % 1.9 % (0.0-2.0); EOSINOPHIL # 0.2 TH/MM3 (0-0.4); EOSINOPHIL % 2.5 % (0.0-4.0); HEMATOCRIT 26.8 % (39.0-51.0); HEMOGLOBIN 8.8 GM/DL (13.0-17.0); LYMPH % 27.4 % (9.0-44.0); LYMPHOCYTE # 2.5 TH/MM3 (1.0-4.8); MEAN CELL VOLUME 90.2 FL (80.0-100.0); MEAN CORPUSCULAR HEMOGLOBIN 29.5 PG (27.0-34.0); MEAN CORPUSCULAR HGB CONC 32.8 % (32.0-36.0); MEAN PLATELET VOLUME 7.9 FL (7.0-11.0); MONO % 6.8 % (0.0-8.0); MONOCYTE # 0.6 TH/MM3 (0-0.9); NEUT % 61.4 % (16.0-70.0); PLATELET COUNT 432 TH/MM3 (150-450); RED BLOOD COUNT 2.97 MIL/MM3 (4.50-5.90); RED CELL DISTRIBUTION WIDTH 17.9 % (11.6-17.2); WHITE BLOOD COUNT 9.2 TH/MM3 (4.0-11.0)
[2017-04-17] VITALS (8 sets, daily range): BP systolic 129–172; BP diastolic 82–100; PULSE 75–108; RESP 12–16; TEMP 95.9–98.7; O2SAT 97–100
[2017-04-17] LABS: CHLORIDE 102 MEQ/L (98-107); SODIUM (NA) 133 MEQ/L (136-145)
[2017-04-17 00:03] LABS: CALCIUM 9.5 MG/DL (8.5-10.1)
[2017-04-17 00:04] LABS: ALBUMIN 3.2 GM/DL (3.4-5.0); BLOOD UREA NITROGEN 15 MG/DL (7-18); GLUCOSE,RANDOM 92 MG/DL (74-106); LIPASE 1135 U/L (73-393)
[2017-04-17 00:07] LABS: ALT (GPT) 24 U/L (12-78); AST (GOT) 19 U/L (15-37); GLOMERULAR FILTRATION RATE 44 ML/MIN (>89)
[2017-04-17 00:08] LABS: TOTAL BILIRUBIN ADULT 0.4 MG/DL (0.2-1.0); TOTAL PROTEIN 8.2 GM/DL (6.4-8.2)
[2017-04-17 00:09] LABS: ALKALINE PHOSPHATASE 78 U/L (45-117)
[2017-04-17 00:46] LABS: BILIRUBIN, URINE NEG (NEG); BLOOD, URINE NEG (NEG); GLUCOSE,URINE NEG (NEG); KETONE, URINE NEG (NEG); NITRITE,URINE NEG (NEG); URINE LEUKOCYTE ESTERASE NEG (NEG)
[2017-04-17 00:49] LABS: URINE COLOR YELLOW (YELLW/STRAW)
[2017-04-17 00:50] LABS: RBC, URINE 0-2 /hpf (0-3); SQUAMOUS EPITHELIAL CELL URINE 0-5 /hpf (0-5); WBC, URINE 0-2 /hpf (0-5)
[2017-04-17] MEDS ORDERED: SODIUM CHLOR 0.9% 1000 ML INJ 1,000 ML IV SCH (02:00)
[2017-04-17] MEDS ORDERED: BISACODYL 10 MG SUPP RECTAL PRN (02:15)
[2017-04-17] MEDS ORDERED: LACTULOSE SYRUP 20 GM/30 ML CUP PO PRN (02:15)
[2017-04-17] MEDS ORDERED: SODIUM CHLORIDE 0.9% FLUSH 10 ML FLUSH IV FLUSH PRN (02:15)
[2017-04-17] MEDS ORDERED: MAGNESIUM HYDROXIDE SUSP 30 ML CUP PO PRN (02:15)
[2017-04-17] MEDS ORDERED: ONDANSETRON HCL 4 MG/2 ML VIAL IVP PRN (02:15)
[2017-04-17] MEDS ORDERED: SENNOSIDES 8.6 MG TAB PO PRN (02:15)
[2017-04-17] MEDS ORDERED: ACETAMINOPHEN 325 MG TAB PO PRN (02:15)
[2017-04-17] MEDS ORDERED: MORPHINE SULFATE 2 MG/ML INJ IV PUSH PRN (02:45)
[2017-04-17] MEDS ORDERED: PILL SPLITTER OTHER PRN (02:45)
[2017-04-17] MEDS ORDERED: FAMOTIDINE 20 MG/2 ML VIAL IV PUSH SCH (03:00)
[2017-04-17] MEDS: SODIUM CHLOR 0.9% 1000 ML INJ 1,000 ML IV SCH ×3 (03:18→22:21)
[2017-04-17] MEDS: HYDROmorphone HCL 2 MG TAB PO PRN ×5 (03:50→21:36)
--- NOTE | 2017-04-17 05:10 | PD ---
HPI Chief Complaint: GI Complaint Time Seen by Provider: 22:33 Travel History International Travel<30 days: No Contact w/Intl Traveler<30days: No Traveled to known affect area: No History of Present Illness HPI 62-year-old male presents to the emergency department for complaint of abdominal pain and diarrhea. Patient denies bloody diarrhea although does not mucous in the diarrhea. Patient states she was seen yesterday in the emergency department evaluated for diarrhea and a C. difficile was done that was reportedly negative. Patient states he has issues with recurrent C. difficile infections. Patient states he has been on antibiotic for C. difficile in the recent past. Patient states she was seen by his primary care provider today and felt well and then when he returned home shortly thereafter started having recurrent diarrhea and since then has had numerous episodes of watery diarrhea and has developed epigastric pain. Patient denies nausea or vomiting and denies fever or chills. Patient had no hematemesis no coffee-ground emesis no melena or hematochezia. Patient denies any dietary indiscretion well water ingestion or foreign travel. Patient rates his discomfort 9/10 in intensity. PFSH Past Medical History Narrative Medical Colitis diverticulitis seizure arthritis hypertension orthopedic surgery; marijuana use alcohol use; nursing notes reviewed Hx Anticoagulant Therapy: No Arthritis: Yes (IN BILAT. SHOULDERS ) Asthma: No Autoimmune Disease: No Anxiety: Yes Depression: No Heart Rhythm Problems: No Cancer: No Cardiovascular Problems: No High Cholesterol: No Chemotherapy: No Chest Pain: No Congestive Heart Failure: No COPD: No Cerebrovascular Accident: No Diabetes: No Diminished Hearing: Yes (L ear ) Diverticulitis: Yes Endocrine: No Gastrointestinal Disorders: Yes (COLONOSCOPY JANUARY 2014, c diff ) GERD: Yes Genitourinary: No Headaches: No Hiatal Hernia: No Heparin Induced Thrombocytopen: No Hypertension: Yes Immune Disorder: No Implanted Vascular Access Dvce: Yes Kidney Stones: No Musculoskeletal: No Neurologic: Yes Psychiatric: No Reproductive: No Respiratory: No Immunizations Current: Yes Migraines: No Pancreatitis: Yes Radiation Therapy: No Renal Failure: No Seizures: Yes (2009) Sickle Cell Disease: No Sleep Apnea: No Thyroid Disease: No Ulcer: No Influenza Vaccination: Yes PNEUMOCCOCAL Vaccine (Year): 2 Past Surgical History Abdominal Surgery: No AICD: No Arteriovenous Shunt: No Body Medical Devices: DISSOLVABLE SCREW IN LEFT ANKLE - placed 2015, titanium femur Cardiac Surgery: No Ear Surgery: No Endocrine Surgery: No Eye Surgery: No Genitourinary Surgery: No Gynecologic Surgery: No Hysterectomy: No Insulin Pump: No Joint Replacement: No Neurologic Surgery: No Oral Surgery: No Pacemaker: No Thoracic Surgery: No Other Surgery: Yes (2 BACK AND ONE NECK SURGERIES-microdiskectomy,left achilles tendon repair) Social History Alcohol Use: No (QUIT 2016) Tobacco Use: No Substance Use: Yes (Marijuana , etoh ) Allergies-Medications (Allergen,Severity, Reaction): Coded Allergies: codeine (Verified Allergy, Severe, RASH, 04/16/17) ibuprofen (Verified Allergy, Severe, Swelling, 04/16/17) of eyes levofloxacin (Verified Allergy, Severe, ACHILLES TENDON PROBLEM, 04/16/17) metronidazole (Verified Allergy, Severe, 04/16/17) Reported Meds & Prescriptions Reported Meds & Active Scripts Active Vancomycin (Vancomycin HCl) 250 Mg Cap 500 Mg PO QID Gnp Vitamin B-1 (Thiamine HCl) 100 Mg Tab 100 Mg PO DAILY Reported Promethazine (Promethazine HCl) 12.5 Mg Tab 12.5 Mg PO Q6H PRN Xanax (Alprazolam) 0.5 Mg Tab 0.5 Mg PO Q12HR PRN Amlodipine (Amlodipine Besylate) 5 Mg Tab 5 Mg PO DAILY Lisinopril 20 Mg Tab 20 Mg PO DAILY Review of Systems Except as stated in HPI: all other systems reviewed are Neg Physical Exam Narrative GENERAL: Well-developed well-nourished female in no acute distress no respiratory distress SKIN: Warm and dry. HEAD: Normocephalic. EYES: No scleral icterus. No injection or drainage. NECK: Supple, trachea midline. No JVD or lymphadenopathy. CARDIOVASCULAR: Regular rate and rhythm without murmurs, gallops, or rubs. RESPIRATORY: Breath sounds equal bilaterally. No accessory muscle use. GASTROINTESTINAL: Abdomen soft, mild epigastric tenderness without guarding or rebound, nondistended. MUSCULOSKELETAL: No cyanosis, or edema. BACK: Nontender without obvious deformity. No CVA tenderness. Data Data Last Documented VS Vital Signs Date Time Temp Pulse Resp B/P (MAP) Pulse Ox O2 Delivery O2 Flow Rate FiO2 04/17/17 01:00 108 14 172/97 (122) 97 Room Air 04/16/17 22:33 98.5 Orders Orders Complete Blood Count With Diff (04/16/17 22:57) Comprehensive Metabolic Panel (04/16/17 22:57) Urinalysis - C+S If Indicated (04/16/17 22:57) Lipase (04/16/17 22:57) Abdomen, Flat & Upright (04/16/17 ) Iv Access Insert/Monitor (04/16/17 22:57) Ecg Monitoring (04/16/17 22:57) Oximetry (04/16/17 22:57) Ondansetron Inj (Zofran Inj) (04/16/17 23:00) Sodium Chlor 0.9% 1000 Ml Inj (Ns 1000 M (04/16/17 22:57) Sodium Chloride 0.9% Flush (Ns Flush) (04/16/17 23:00) Blood Culture (04/16/17 22:57) C Diff Toxin Pcr (04/16/17 22:57) Enteric Path (Stool) (04/16/17 22:57) Admit Order (Ed Use Only) (04/17/17 ) Vital Signs (Adult) Q4H (04/17/17 01:56) Activity Oob With Assistance (04/17/17 01:56) Notify Dr: Other (04/17/17 01:56) Sodium Chlor 0.9% 1000 Ml Inj (Ns 1000 M (04/17/17 02:00) Labs Laboratory Tests Test 04/16/17 23:40 04/17/17 00:15 White Blood Count 9.2 TH/MM3 Red Blood Count 2.97 MIL/MM3 Hemoglobin 8.8 GM/DL Hematocrit 26.8 % Mean Corpuscular Volume 90.2 FL Mean Corpuscular Hemoglobin 29.5 PG Mean Corpuscular Hemoglobin Concent 32.8 % Red Cell Distribution Width 17.9 % Platelet Count 432 TH/MM3 Mean Platelet Volume 7.9 FL Neutrophils (%) (Auto) 61.4 % Lymphocytes (%) (Auto) 27.4 % Monocytes (%) (Auto) 6.8 % Eosinophils (%) (Auto) 2.5 % Basophils (%) (Auto) 1.9 % Neutrophils # (Auto) 5.7 TH/MM3 Lymphocytes # (Auto) 2.5 TH/MM3 Monocytes # (Auto) 0.6 TH/MM3 Eosinophils # (Auto) 0.2 TH/MM3 Basophils # (Auto) 0.2 TH/MM3 CBC Comment DIFF FINAL Differential Comment Blood Urea Nitrogen 15 MG/DL Creatinine 1.60 MG/DL Random Glucose 92 MG/DL Total Protein 8.2 GM/DL Albumin 3.2 GM/DL Calcium Level 9.5 MG/DL Alkaline Phosphatase 78 U/L Aspartate Amino Transf (AST/SGOT) 19 U/L Alanine Aminotransferase (ALT/SGPT) 24 U/L Total Bilirubin 0.4 MG/DL Sodium Level 133 MEQ/L Potassium Level 4.6 MEQ/L Chloride Level 102 MEQ/L Carbon Dioxide Level 20.0 MEQ/L Anion Gap 11 MEQ/L Estimat Glomerular Filtration Rate 44 ML/MIN Lipase 1135 U/L Urine Color YELLOW Urine Turbidity CLEAR Urine pH 6.0 Urine Specific [place] 1.010 Urine Protein NEG mg/dL Urine Glucose (UA) NEG mg/dL Urine Ketones NEG mg/dL Urine Occult Blood NEG Urine Nitrite NEG Urine Bilirubin NEG Urine Leukocyte Esterase NEG Urine RBC 0-2 /hpf Urine WBC 0-2 /hpf Urine Squamous Epithelial Cells 0-5 /hpf Urine Bacteria NONE /hpf Microscopic Urinalysis Comment CULT NOT INDICATED Stool C. difficile Toxin (PCR) NEGATIVE Stl C. difficile Toxin Epiderm 027 PRESUMPTIVE NEGATIVE MDM Medical Decision Making Medical Screen Exam Complete: Yes Emergency Medical Condition: Yes Medical Record Reviewed: Yes Differential Diagnosis abdominal pain gastritis pancreatitis cholecystitis colitis diverticulitis bowel obstruction Narrative Course IV access obtained specimens collected and sent for resulting IV fluids administered patient administered Zofran CBC is automated differential other values grossly normal range Lipase is elevated at 1135 Metabolic panel renal insufficiency creatinine 1.60 Patient's case discussed with on-call H for observation [facility] Physician Communication Physician Communication discussed with Dr Stovall Diagnosis Primary Impression: Elevated lipase Additional Impression: Pancreatitis Admitting Information Admitting Physician Requests: Observation Jen Gomes MD Apr 17, 2017 05:10
[2017-04-17] MEDS ORDERED: LOPERAMIDE HCL 2 MG CAP PO PRN ×2 (07:30→10:15)
[2017-04-17] MEDS: ALPRAZolam 0.5 MG TAB PO PRN ×2 (08:40→21:34)
[2017-04-17] MEDS: THIAMINE HCL 100 MG TAB PO SCH (08:40)
[2017-04-17] MEDS: amLODIPine BESYLATE 5 MG TAB PO SCH (08:40)
[2017-04-17] MEDS: FAMOTIDINE 20 MG/2 ML VIAL IV PUSH SCH ×2 (08:40→21:30)
[2017-04-17] MEDS: SODIUM CHLORIDE 0.9% FLUSH 10 ML FLUSH IV FLUSH SCH ×2 (08:50→21:26)
[2017-04-17] MEDS: DOCUSATE SODIUM 50 MG/SENNA 8.6 MG TAB PO SCH ×2 (08:50→21:30)
[2017-04-17] MEDS ORDERED: VANCOMYCIN 500 MG VIAL (FOR ORAL USE ONLY) PO SCH (09:00)
--- NOTE | 2017-04-17 09:53 | HHI.HP ---
[facility] Yamil Collado, Admission Diagnosis pancreatitis/elevated lipase Diagnoses: Chief Complaint: Diarrhea Travel History International Travel<30 Days: No Contact w/Intl Traveler <30 Da: No Traveled to Known Affected Are: No History of Present Illness Mr. Adams is a 62-year-old male with a history of multiple episodes of C. difficile colitis who presents to the emergency department on 04/16/2017 due to abdominal pain and diarrhea. Patient has been on oral vancomycin taper for C. difficile colitis and also is currently being evaluated for fecal transplant. On 04/14/2017 he started experiencing diarrhea again. He did not have any fever or chills or nausea vomiting. He was evaluated in the emergency room within the last few days and his C. difficile PCR was negative. C. difficile PCR is also negative today. Patient denies any recent travel, eating anything unique. No blood in the stool. Review of Systems Except as stated in HPI: all other systems reviewed are Neg Past Family Social History Allergies: Coded Allergies: codeine (Verified Allergy, Severe, RASH, 04/16/17) ibuprofen (Verified Allergy, Severe, Swelling, 04/16/17) of eyes levofloxacin (Verified Allergy, Severe, ACHILLES TENDON PROBLEM, 04/16/17) metronidazole (Verified Allergy, Severe, 04/16/17) Physical Exam Vital Signs Vital Signs Date Time Temp Pulse Resp B/P (MAP) Pulse Ox O2 Delivery O2 Flow Rate FiO2 04/17/17 03:30 96.9 89 16 149/97 (114) 99 04/17/17 03:01 04/17/17 02:25 102 14 129/82 (98) 98 Room Air 04/17/17 01:00 108 14 172/97 (122) 97 Room Air 04/17/17 00:00 102 14 150/97 (114) 97 Room Air 04/16/17 23:00 100 14 160/97 (118) 97 Room Air 04/16/17 22:55 14 97 Room Air 04/16/17 22:50 14 04/16/17 22:33 98.5 107 146/94 (111) 98 Physical Exam GENERAL: This is a well-nourished, well-developed patient, in no apparent distress. SKIN: No rashes, ecchymoses or lesions. Warm and dry. HEAD: Atraumatic. Normocephalic. No temporal or scalp tenderness. EYES: Pupils equal round and reactive. No injection or drainage. ENT: Nose without bleeding, purulent drainage or septal hematoma. Airway patent. NECK: Trachea midline. No lymphadenopathy. Supple, nontender, no meningeal signs. CARDIOVASCULAR: Regular rate and rhythm without murmurs, gallops, or rubs. No JVD. RESPIRATORY: Clear to auscultation. Breath sounds equal bilaterally. No wheezes , rales, or rhonchi. GASTROINTESTINAL: Abdomen soft, non-tender, nondistended. No guarding. MUSCULOSKELETAL: Extremities without clubbing, cyanosis, or edema. NEUROLOGICAL: Awake and alert. Cranial nerves II through XII intact. No focal neurological deficits. Normal speech. Laboratory Laboratory Tests Test 04/16/17 23:40 04/17/17 00:15 04/17/17 08:00 White Blood Count 9.2 Red Blood Count 2.97 Hemoglobin 8.8 Hematocrit 26.8 Mean Corpuscular Volume 90.2 Mean Corpuscular Hemoglobin 29.5 Mean Corpuscular Hemoglobin Concent 32.8 Red Cell Distribution Width 17.9 Platelet Count 432 Mean Platelet Volume 7.9 Neutrophils (%) (Auto) 61.4 Lymphocytes (%) (Auto) 27.4 Monocytes (%) (Auto) 6.8 Eosinophils (%) (Auto) 2.5 Basophils (%) (Auto) 1.9 Neutrophils # (Auto) 5.7 Lymphocytes # (Auto) 2.5 Monocytes # (Auto) 0.6 Eosinophils # (Auto) 0.2 Basophils # (Auto) 0.2 CBC Comment DIFF FINAL Differential Comment Blood Urea Nitrogen 15 Creatinine 1.60 Random Glucose 92 Total Protein 8.2 Albumin 3.2 Calcium Level 9.5 Alkaline Phosphatase 78 Aspartate Amino Transf (AST/SGOT) 19 Alanine Aminotransferase (ALT/SGPT) 24 Total Bilirubin 0.4 Sodium Level 133 Potassium Level 4.6 Chloride Level 102 Carbon Dioxide Level 20.0 Anion Gap 11 Estimat Glomerular Filtration Rate 44 Lipase 1135 292 Urine Color YELLOW Urine Turbidity CLEAR Urine pH 6.0 Urine Specific [place] 1.010 Urine Protein NEG Urine Glucose (UA) NEG Urine Ketones NEG Urine Occult Blood NEG Urine Nitrite NEG Urine Bilirubin NEG Urine Leukocyte Esterase NEG Urine RBC 0-2 Urine WBC 0-2 Urine Squamous Epithelial Cells 0-5 Urine Bacteria NONE Microscopic Urinalysis Comment CULT NOT INDICATED Stool C. difficile Toxin (PCR) NEGATIVE Stl C. difficile Toxin Epiderm 027 PRESUMPTIVE NEGATIVE Date/Time Source Procedure Growth Status 04/17/17 00:00 Blood Peripheral Aerobic Blood Culture Pending Received 04/17/17 00:00 Blood Peripheral Anaerobic Blood Culture Pending Received 04/17/17 00:15 Stool Stool Pending Received Result Diagram: 04/16/17 2340 04/16/17 2340 Imaging Last Impressions Abdomen X-Ray 04/16/17 0000 Signed Impressions: Service Date/Time: Sunday, April 16, 2017 23:10 - CONCLUSION: Slight nonspecific gaseous distention of bowel MD Dina Nicholson VTE Risk Assessment Dina VTE Risk Assessment: No/Low Risk (score <= 1) Caprini Risk Assessment Model Point Value = 1 Point Value = 2 Point Value = 3 Point Value = 5 Age 41-60 Minor surgery BMI > 25 kg/m2 Swollen legs Varicose veins or History of unexplained or recurrent spontaneous Oral contraceptives or hormone replacement Sepsis (< 1 month) Serious lung disease, including pneumonia (< 1 month) Abnormal pulmonary function Acute myocardial infarction Congestive heart failure (< 1 month) History of inflammatory bowel disease Medical patient at bed rest Age 61-74 Arthroscopic surgery Major open surgery (> 45 min) Laparoscopic surgery (> 45 min) Malignancy Confined to bed (> 72 hours) Immobilizing plaster cast Central venous access Age >= 75 History of VTE Family history of VTE Factor V Leiden Prothrombin [id number] Lupus anticoagulant Anticardiolipin antibodies Elevated serum homocysteine Heparin-induced thrombocytopenia Other congenital or acquired thrombophilia Stroke (< 1 month) Elective arthroplasty Hip, pelvis, or leg fracture Acute spinal cord injury (< 1 month) Prophylaxis Regimen Total Risk Factor Score Risk Level Prophylaxis Regimen 0-1 Low Early ambulation 2 Moderate Order ONE of the following: *Sequential Compression Device (SCD) *Heparin 5000 units SQ BID 3-4 Higher Order ONE of the following medications: *Heparin 5000 units SQ TID *Enoxaparin/Lovenox 40 mg SQ daily (WT < 150 kg, CrCl > 30 mL/min) *Enoxaparin/Lovenox 30 mg SQ daily (WT < 150 kg, CrCl > 10-29 mL/min) *Enoxaparin/Lovenox 30 mg SQ BID (WT < 150 kg, CrCl > 30 mL/min) AND/OR *Sequential Compression Device (SCD) 5 or more Highest Order ONE of the following medications: *Heparin 5000 units SQ TID (Preferred with Epidurals) *Enoxaparin/Lovenox 40 mg SQ daily (WT < 150 kg, CrCl > 30 mL/min) *Enoxaparin/Lovenox 30 mg SQ daily (WT < 150 kg, CrCl > 10-29 mL/min) *Enoxaparin/Lovenox 30 mg SQ BID (WT < 150 kg, CrCl > 30 mL/min) AND *Sequential Compression Device (SCD) Assessment and Plan Problem List: (1) Diarrhea ICD Code: R19.7 - Diarrhea Status: Acute (2) Acute kidney injury ICD Code: N17.9 - Acute kidney failure, unspecified Status: Resolved Assessment and Plan Mr. Adams is a pleasant 62 year old male with a history of multiple C. Diff colitis episodes who was admitted to the hospital due to onset of Diarrhea two days prior to this admission. - Diarrhea - C. Diff colitis negative X 2. - Will check stool studies. - Continue NS @100cc/hour. - Start imodium. - Acute kidney injury - Baseline creatinine below 1.0. Creatinine 1.90 on admission, improved to 1.60. Will continue to monitor. Avoid nephrotoxins. - Hypertension - Hold PHOEBE inhibitor in light of SHAVONNE. Continue Amlodipine 5mg Qday. Full code. Syed Cohn DO Apr 17, 2017 09:53
[2017-04-18] VITALS: BP 144/85; PULSE 82; RESP 16; TEMP 98.8; O2SAT 96
[2017-04-18 07:18] LABS: AUTOMATED NEUTROPHIL # 3.9 TH/MM3 (1.8-7.7); BASOPHIL # 0.1 TH/MM3 (0-0.2); BASOPHIL % 1.1 % (0.0-2.0); EOSINOPHIL # 0.3 TH/MM3 (0-0.4); HEMATOCRIT 25.9 % (39.0-51.0); HEMOGLOBIN 8.3 GM/DL (13.0-17.0); LYMPH % 28.3 % (9.0-44.0); LYMPHOCYTE # 1.9 TH/MM3 (1.0-4.8); MEAN CELL VOLUME 89.3 FL (80.0-100.0); MEAN CORPUSCULAR HEMOGLOBIN 28.4 PG (27.0-34.0); MEAN CORPUSCULAR HGB CONC 31.8 % (32.0-36.0); MONOCYTE # 0.5 TH/MM3 (0-0.9); NEUT % 58.6 % (16.0-70.0); PLATELET COUNT 390 TH/MM3 (150-450); RED CELL DISTRIBUTION WIDTH 17.2 % (11.6-17.2); WHITE BLOOD COUNT 6.7 TH/MM3 (4.0-11.0)
[2017-04-18 07:32] LABS: CHLORIDE 108 MEQ/L (98-107); SODIUM (NA) 138 MEQ/L (136-145)
[2017-04-18 07:37] LABS: ALBUMIN 2.7 GM/DL (3.4-5.0); GLUCOSE,RANDOM 89 MG/DL (74-106); LIPASE 178 U/L (73-393)
[2017-04-18 07:38] LABS: BICARBONATE 20.1 MEQ/L (21.0-32.0); BLOOD UREA NITROGEN 9 MG/DL (7-18)
[2017-04-18 07:40] LABS: ALT (GPT) 18 U/L (12-78); AST (GOT) 16 U/L (15-37); GLOMERULAR FILTRATION RATE 56 ML/MIN (>89)
[2017-04-18 07:43] LABS: ALKALINE PHOSPHATASE 62 U/L (45-117)
[2017-04-18 07:44] LABS: TOTAL BILIRUBIN ADULT 0.5 MG/DL (0.2-1.0)
[2017-04-18 08:00] VITALS: BP 167/85; PULSE 88; RESP 18; TEMP 97.9; O2SAT 99
[2017-04-18] MEDS ORDERED: FAMOTIDINE 20 MG/2 ML VIAL IV PUSH SCH (09:00)
[2017-04-18] MEDS: DOCUSATE SODIUM 50 MG/SENNA 8.6 MG TAB PO SCH (09:22)
[2017-04-18] MEDS: THIAMINE HCL 100 MG TAB PO SCH (09:22)
[2017-04-18] MEDS: amLODIPine BESYLATE 5 MG TAB PO SCH (09:22)
[2017-04-18] MEDS: SODIUM CHLORIDE 0.9% FLUSH 10 ML FLUSH IV FLUSH SCH (09:22)
[2017-04-18] MEDS: HYDROmorphone HCL 2 MG TAB PO PRN (09:22)
[2017-04-18] MEDS: SODIUM CHLOR 0.9% 1000 ML INJ 1,000 ML IV SCH (09:28)
[2017-04-18] MEDS: ALPRAZolam 0.5 MG TAB PO PRN (09:30)
[2017-04-18] MEDS ORDERED: NIFE60TA58 PO (09:56)
[2017-04-18] MEDS ORDERED: GUAISYP4 PO (09:56)
--- NOTE | 2017-04-18 09:57 | HHI.PR ---
Subjective Remarks Follow-up for diarrhea in a patient with a history of multiple C. difficile colitis. Patient is currently doing well. No chest pain, shortness of breath, fever or chills. C. difficile PCR negative. Patient is not having any further diarrhea. Objective Vitals Vital Signs Date Time Temp Pulse Resp B/P (MAP) Pulse Ox O2 Delivery O2 Flow Rate FiO2 04/18/17 08:00 97.9 88 18 167/85 (112) 99 04/18/17 00:00 98.8 82 16 144/85 (104) 96 04/17/17 20:00 98.7 87 16 142/89 (106) 97 04/17/17 16:00 97.1 79 14 159/94 (115) 100 04/17/17 12:00 96.9 82 14 147/99 (115) 100 I/O 04/17/17 04/17/17 04/17/17 04/18/17 04/18/17 04/18/17 07:00 15:00 23:00 07:00 15:00 23:00 Intake Total 1459 ml 200 ml Balance 1459 ml 200 ml Intake Oral 220 ml 200 ml IV Total 1239 ml # Voids 1 10 1 # Bowel Movements 0 0 Result Diagram: 04/18/17 0655 04/18/17 0655 Imaging Last Impressions Abdomen X-Ray 04/16/17 0000 Signed Impressions: Service Date/Time: Sunday, April 16, 2017 23:10 - CONCLUSION: Slight nonspecific gaseous distention of bowel Alonzo Gates MD Objective Remarks GENERAL: Alert, oriented 3, NAD. SKIN: Warm and dry. HEAD: Normocephalic. EYES: No scleral icterus. No injection or drainage. NECK: Supple, trachea midline. No JVD or lymphadenopathy. CARDIOVASCULAR: Regular rate and rhythm without murmurs, gallops, or rubs. RESPIRATORY: Breath sounds equal bilaterally. No accessory muscle use. GASTROINTESTINAL: Abdomen soft, non-tender, nondistended. MUSCULOSKELETAL: No cyanosis, or edema. BACK: Nontender without obvious deformity. No CVA tenderness. Procedures None A/P Problem List: (1) Diarrhea ICD Code: R19.7 - Diarrhea Status: Acute (2) Acute kidney injury ICD Code: N17.9 - Acute kidney failure, unspecified Status: Resolved Assessment and Plan Mr. Adams is a pleasant 62 year old male with a history of multiple C. Diff colitis episodes who was admitted to the hospital due to onset of Diarrhea two days prior to this admission. - Diarrhea - C. Diff colitis negative X 2. - stool studies negative. - Continued NS @100cc/hour. - Imodium PRN. - Acute kidney injury - Baseline creatinine below 1.0. Creatinine 1.90 on admission, improved to 1.60 --> 1.30. Avoid nephrotoxins. - Hypertension - Hold PHOEBE inhibitor in light of SHAVONNE. We'll discharge patient on nifedipine 60 mg daily. Can be titrated up if needed. Full code. Discharge patient to home Condition on discharge: Improved Heart healthy Diet as tolerated Ad Susu activity Rx written: - Nifedipine 60 mg daily - Guaifenesin - codeine 10 ML by mouth every 6 hours when necessary. Follow-up with primary care physician within one week. Syed Cohn DO Apr 18, 2017 9:57 am
== END 2017-04-18 12:14 | disposition home or self-care (01) ==
LOC: PHED 22:27 → PHEDA 04-17 01:58 → PH3A 04-17 03:08
PROVIDERS: ADMIT Hospitalist; ATTEND Hospitalist
DX: N17.9 Acute kidney failure, unspecified (principal); R74.8 Abnormal levels of other serum enzymes; F12.90 Cannabis use, unspecified, uncomplicated; I10 Essential (primary) hypertension; K21.9 Gastro-esophageal reflux disease without esophagitis; K57.92 Diverticulitis of intestine, part unspecified, without perforation or abscess without bleeding; Z72.89 Other problems related to lifestyle; Z87.19 Personal history of other diseases of the digestive system
CPT/HCPCS: 74020; 80053; 81001; 83690; 85025; 87040; 87205; 87328; 87329; 87425; 87493; 87506; 96361; 96374; 96375; 96376; 99285; G0378; J2405; J7030

== ENCOUNTER 2017-04-21 10:52 | Inpatient (IN) | payer BC ==
[~2017-04-21] VITALS: Ht 175.3 cm; Wt 63.9 kg
[2017-04-21] VITALS (7 sets, daily range): BP systolic 122–147; BP diastolic 65–86; PULSE 98–115; RESP 16–18; TEMP 98.4–99.3; O2SAT 97–99
[~2017-04-21 10:52] MED LIST changes: -AMLO5TAB2 PO; +GUAISYP4 PO; -LISI-515 PO; +NIFE60TA58 PO; -SULF1TAB23 PO
[2017-04-21] MEDS ORDERED: LISI-515 PO (11:05)
[2017-04-21] MEDS ORDERED: AMLO5TAB2 PO (11:05)
[2017-04-21] MEDS ORDERED: SODIUM CHLOR 0.9% 1000 ML INJ 1,000 ML IV SCH (11:09)
--- NOTE | 2017-04-21 11:13 | PD ---
HPI Chief Complaint: Abdominal Pain Time Seen by Provider: 11:09 Travel History International Travel<30 days: No Contact w/Intl Traveler<30days: No Traveled to known affect area: No History of Present Illness HPI 62-year-old male patient with history of multiple bouts of C. difficile diarrhea for which she has been following up with [facility], has been admitted to the hospital last week and released a few days ago for worsening of diarrhea, not yet confirmed to be C. difficile, states that he went home and still was not feeling well, has been nauseous, vomiting, and having diarrhea multiple times last night. He states that he is just feeling worse and not getting better. He denies any fevers or other symptoms. Modifying Factors: None Associated Signs & Symptoms: Worsening of nausea, vomiting, diarrhea Risk Factors: History of C. difficile diarrhea recent admission 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 ) Asthma: No Autoimmune Disease: No Anxiety: Yes Depression: No Heart Rhythm Problems: No Cancer: No Cardiovascular Problems: No High Cholesterol: No Chemotherapy: No Chest Pain: No Congestive Heart Failure: No COPD: No Cerebrovascular Accident: No Diabetes: No Diminished Hearing: Yes (L ear ) Diverticulitis: Yes Endocrine: No Gastrointestinal Disorders: Yes (diverticulitis, ) GERD: Yes Genitourinary: No Headaches: No Hiatal Hernia: No Heparin Induced Thrombocytopen: No Hypertension: Yes Immune Disorder: No Implanted Vascular Access Dvce: Yes Kidney Stones: No Musculoskeletal: No Neurologic: Yes Psychiatric: No Reproductive: No Respiratory: No Immunizations Current: Yes Migraines: No Pancreatitis: Yes Radiation Therapy: No Renal Failure: No Seizures: Yes (2009) Sickle Cell Disease: No Sleep Apnea: No Thyroid Disease: No Ulcer: No Tetanus Vaccination: < 5 Years Influenza Vaccination: Yes PNEUMOCCOCAL Vaccine (Year): 2 Past Surgical History Abdominal Surgery: No AICD: No Arteriovenous Shunt: No Body Medical Devices: DISSOLVABLE SCREW IN LEFT ANKLE - placed 2015, titanium femur Cardiac Surgery: No Ear Surgery: No Endocrine Surgery: No Eye Surgery: No Genitourinary Surgery: No Gynecologic Surgery: No Hysterectomy: No Insulin Pump: No Joint Replacement: No Neurologic Surgery: No Oral Surgery: No Pacemaker: No Thoracic Surgery: No Other Surgery: Yes (2 BACK AND ONE NECK SURGERIES-microdiskectomy,left achilles tendon repair) Social History Alcohol Use: No (QUIT 2016) Tobacco Use: No Substance Use: Yes (Marijuana , etoh ) Allergies-Medications (Allergen,Severity, Reaction): Coded Allergies: codeine (Verified Allergy, Severe, RASH, 04/21/17) ibuprofen (Verified Allergy, Severe, Swelling, 04/21/17) of eyes levofloxacin (Verified Allergy, Severe, ACHILLES TENDON PROBLEM, 04/21/17) metronidazole (Verified Allergy, Unknown, 04/21/17) Reported Meds & Prescriptions Reported Meds & Active Scripts Active Nifedipine ER 24 HR (Nifedipine) 60 Mg Tab 60 Mg PO DAILY Vancomycin (Vancomycin HCl) 250 Mg Cap 500 Mg PO QID Gnp Vitamin B-1 (Thiamine HCl) 100 Mg Tab 100 Mg PO DAILY Reported Lisinopril 20 Mg Tab 20 Mg PO DAILY Amlodipine (Amlodipine Besylate) 5 Mg Tab 5 Mg PO DAILY Promethazine (Promethazine HCl) 12.5 Mg Tab 12.5 Mg PO Q6H PRN Xanax (Alprazolam) 0.5 Mg Tab 0.5 Mg PO Q12HR PRN Review of Systems Except as stated in HPI: all other systems reviewed are Neg Physical Exam Narrative GENERAL: Well-developed elderly white male patient currently in mild distress at awake and oriented 3. SKIN: Focused skin assessment warm/dry. HEAD: Atraumatic. Normocephalic. EYES: Pupils equal and round. No scleral icterus. No injection or drainage. ENT: No nasal bleeding or discharge. Mucous membranes pink and moist. NECK: Trachea midline. No JVD. CARDIOVASCULAR: Regular rate and rhythm. No murmur appreciated. RESPIRATORY: No accessory muscle use. Clear to auscultation. Breath sounds equal bilaterally. GASTROINTESTINAL: Abdomen soft, non-tender, nondistended. Hepatic and splenic margins not palpable. MUSCULOSKELETAL: No obvious deformities. No clubbing. No cyanosis. No edema. NEUROLOGICAL: Awake and alert. No obvious cranial nerve deficits. Motor grossly within normal limits. Normal speech. PSYCHIATRIC: Appropriate mood and affect; insight and judgment normal. Data Data Last Documented VS Vital Signs Date Time Temp Pulse Resp B/P (MAP) Pulse Ox O2 Delivery O2 Flow Rate FiO2 04/21/17 11:41 16 04/21/17 11:25 99 Room Air 04/21/17 10:52 98.4 115 122/86 (98) Orders Orders Complete Blood Count With Diff (04/21/17 11:09) Comprehensive Metabolic Panel (04/21/17 11:09) Lipase (04/21/17 11:09) Urinalysis - C+S If Indicated (04/21/17 11:09) Iv Access Insert/Monitor (04/21/17 11:09) Ecg Monitoring (04/21/17 11:09) Oximetry (04/21/17 11:09) Morphine Inj (Morphine Inj) (04/21/17 11:15) Ondansetron Inj (Zofran Inj) (04/21/17 11:15) Sodium Chlor 0.9% 1000 Ml Inj (Ns 1000 M (04/21/17 11:09) Sodium Chloride 0.9% Flush (Ns Flush) (04/21/17 11:15) C Diff Toxin Pcr (04/21/17 11:09) Promethazine Inj (Phenergan Inj) (04/21/17 13:45) Admit Order (Ed Use Only) (04/21/17 13:44) Labs Laboratory Tests Test 04/21/17 11:25 04/21/17 12:35 White Blood Count 12.2 TH/MM3 Red Blood Count 3.25 MIL/MM3 Hemoglobin 9.3 GM/DL Hematocrit 28.8 % Mean Corpuscular Volume 88.7 FL Mean Corpuscular Hemoglobin 28.7 PG Mean Corpuscular Hemoglobin Concent 32.4 % Red Cell Distribution Width 17.4 % Platelet Count 495 TH/MM3 Mean Platelet Volume 7.6 FL Neutrophils (%) (Auto) 75.7 % Lymphocytes (%) (Auto) 15.3 % Monocytes (%) (Auto) 7.5 % Eosinophils (%) (Auto) 1.1 % Basophils (%) (Auto) 0.4 % Neutrophils # (Auto) 9.3 TH/MM3 Lymphocytes # (Auto) 1.9 TH/MM3 Monocytes # (Auto) 0.9 TH/MM3 Eosinophils # (Auto) 0.1 TH/MM3 Basophils # (Auto) 0.0 TH/MM3 CBC Comment DIFF FINAL Differential Comment Blood Urea Nitrogen 14 MG/DL Creatinine 1.30 MG/DL Random Glucose 110 MG/DL Total Protein 7.9 GM/DL Albumin 3.3 GM/DL Calcium Level 9.2 MG/DL Alkaline Phosphatase 69 U/L Aspartate Amino Transf (AST/SGOT) 30 U/L Alanine Aminotransferase (ALT/SGPT) 38 U/L Total Bilirubin 0.5 MG/DL Sodium Level 135 MEQ/L Potassium Level 3.9 MEQ/L Chloride Level 103 MEQ/L Carbon Dioxide Level 21.3 MEQ/L Anion Gap 11 MEQ/L Estimat Glomerular Filtration Rate 56 ML/MIN Lipase 95 U/L Urine Collection Type CLEAN CATCH Urine Color YELLOW Urine Turbidity CLEAR Urine pH 6.0 Urine Specific [place] 1.015 Urine Protein NEG mg/dL Urine Glucose (UA) NEG mg/dL Urine Ketones NEG mg/dL Urine Occult Blood NEG Urine Nitrite NEG Urine Bilirubin NEG Urine Leukocyte Esterase NEG Urine WBC 0-2 /hpf Microscopic Urinalysis Comment CULT NOT INDICATED MDM Medical Decision Making Medical Screen Exam Complete: Yes Emergency Medical Condition: Yes Medical Record Reviewed: Yes Interpretation(s) Laboratory Tests Test 04/21/17 11:25 04/21/17 12:35 White Blood Count 12.2 TH/MM3 (4.0-11.0) Red Blood Count 3.25 MIL/MM3 (4.50-5.90) Hemoglobin 9.3 GM/DL (13.0-17.0) Hematocrit 28.8 % (39.0-51.0) Red Cell Distribution Width 17.4 % (11.6-17.2) Platelet Count 495 TH/MM3 (150-450) Neutrophils (%) (Auto) 75.7 % (16.0-70.0) Neutrophils # (Auto) 9.3 TH/MM3 (1.8-7.7) Random Glucose 110 MG/DL (74-106) Albumin 3.3 GM/DL (3.4-5.0) Sodium Level 135 MEQ/L (136-145) Estimat Glomerular Filtration Rate 56 ML/MIN (>89) Differential Diagnosis Gastroenteritis versus C. difficile diarrhea versus dehydration versus metabolic issues Narrative Course Lab work did not show significant dehydration. His abdomen is fairly benign. It appears that he is is having ongoing problems with his diarrhea and vomiting , Zofran was given several times in the ER without significant improvement and he was then given Phenergan as well. My plan at this point would be to admit the patient for further treatment of his vomiting and diarrhea, suspicion of C. difficile. He is already on vancomycin for this. Case is discussed with Dr. Chiang for admission. C. difficile toxin is pending. Diagnosis Primary Impression: Nausea & vomiting Additional Impressions: Diarrhea Dehydration Admitting Information Admitting Physician Requests: Admit Devan Gallego MD Apr 21, 2017 11:13
[2017-04-21] MEDS ORDERED: MORPHINE SULFATE 4 MG/ML INJ IV PUSH ONE (11:15)
[2017-04-21] MEDS ORDERED: ONDANSETRON HCL 4 MG/2 ML VIAL IVP ONE (11:15)
[2017-04-21] MEDS ORDERED: SODIUM CHLORIDE 0.9% FLUSH 10 ML FLUSH IV FLUSH PRN ×2 (11:15→14:00)
[2017-04-21 11:39] LABS: AUTOMATED NEUTROPHIL # 9.3 TH/MM3 (1.8-7.7); BASOPHIL % 0.4 % (0.0-2.0); EOSINOPHIL # 0.1 TH/MM3 (0-0.4); EOSINOPHIL % 1.1 % (0.0-4.0); HEMATOCRIT 28.8 % (39.0-51.0); HEMOGLOBIN 9.3 GM/DL (13.0-17.0); LYMPH % 15.3 % (9.0-44.0); LYMPHOCYTE # 1.9 TH/MM3 (1.0-4.8); MEAN CELL VOLUME 88.7 FL (80.0-100.0); MEAN CORPUSCULAR HEMOGLOBIN 28.7 PG (27.0-34.0); MEAN CORPUSCULAR HGB CONC 32.4 % (32.0-36.0); MEAN PLATELET VOLUME 7.6 FL (7.0-11.0); MONO % 7.5 % (0.0-8.0); MONOCYTE # 0.9 TH/MM3 (0-0.9); NEUT % 75.7 % (16.0-70.0); PLATELET COUNT 495 TH/MM3 (150-450); RED BLOOD COUNT 3.25 MIL/MM3 (4.50-5.90); RED CELL DISTRIBUTION WIDTH 17.4 % (11.6-17.2); WHITE BLOOD COUNT 12.2 TH/MM3 (4.0-11.0)
[2017-04-21 12:16] LABS: ALBUMIN 3.3 GM/DL (3.4-5.0); ALKALINE PHOSPHATASE 69 U/L (45-117); ALT (GPT) 38 U/L (12-78); AST (GOT) 30 U/L (15-37); BICARBONATE 21.3 MEQ/L (21.0-32.0); BLOOD UREA NITROGEN 14 MG/DL (7-18); CALCIUM 9.2 MG/DL (8.5-10.1); CHLORIDE 103 MEQ/L (98-107); GLOMERULAR FILTRATION RATE 56 ML/MIN (>89); GLUCOSE,RANDOM 110 MG/DL (74-106); LIPASE 95 U/L (73-393); SODIUM (NA) 135 MEQ/L (136-145); TOTAL BILIRUBIN ADULT 0.5 MG/DL (0.2-1.0); TOTAL PROTEIN 7.9 GM/DL (6.4-8.2)
[2017-04-21 12:46] LABS: BILIRUBIN, URINE NEG (NEG); BLOOD, URINE NEG (NEG); GLUCOSE,URINE NEG (NEG); KETONE, URINE NEG (NEG); NITRITE,URINE NEG (NEG); URINE LEUKOCYTE ESTERASE NEG (NEG)
[2017-04-21 12:53] LABS: URINE COLOR YELLOW (YELLW/STRAW); WBC, URINE 0-2 /hpf (0-5)
[2017-04-21] MEDS ORDERED: PROMETHAZINE INJ 25 MG/ML VIAL IM ONE (13:45)
[2017-04-21] MEDS ORDERED: LACTULOSE SYRUP 20 GM/30 ML CUP PO PRN (14:00)
[2017-04-21] MEDS ORDERED: BISACODYL 10 MG SUPP RECTAL PRN (14:00)
[2017-04-21] MEDS ORDERED: NALOXONE HCL 0.4 MG/ML AMP IV PUSH PRN (14:00)
[2017-04-21] MEDS ORDERED: ACETAMINOPHEN 325 MG TAB PO PRN (14:00)
[2017-04-21] MEDS ORDERED: MAGNESIUM HYDROXIDE SUSP 30 ML CUP PO PRN (14:00)
[2017-04-21] MEDS ORDERED: SENNOSIDES 8.6 MG TAB PO PRN (14:00)
[2017-04-21] MEDS ORDERED: PROMETHAZINE HCL 25 MG TAB PO PRN (14:30)
--- NOTE | 2017-04-21 15:43 | MB ---
cc: JOSÉ MIGUEL DORMAN M.D. DATE OF CONSULTATION: 04/21/[address] Long. REASON FOR CONSULTATION Nausea, vomiting, abdominal pain, diarrhea. HISTORY OF PRESENT ILLNESS Mr. Adams is a 62-year-old gentleman who has been having problems episodically with diarrhea and nausea, vomiting. Previously he has had some admissions with C-difficile colitis, but more recently he has had the symptoms of diarrhea, abdominal pain but he C-difficile toxin has been unremarkable. He had a colonoscopy in the end of December which was also unremarkable for C-difficile. He was in the hospital a couple of days back with nausea, vomiting and diarrhea, was treated and started on vancomycin and discharged. He states his symptoms actually worsened and he came back to the hospital for further recommendations. Currently he is having no active GI bleeding or ongoing nausea, vomiting. PAST MEDICAL HISTORY 1. Arthritis. 2. Anxiety disorder. 3. Previous history of C-difficile. 4. History of diverticulitis. 5. Reflux disease. 6. Hypertension. 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 8. Seizure disorder. PAST SURGICAL HISTORY 1. Previous EGD. 2. Colonoscopies. 3. Ankle surgery. 4. Neck surgery. SOCIAL HISTORY Previous history of alcohol use but quit about 3 months ago. Social history also includes marijuana use but no tobacco. ALLERGIES CODEINE, IBUPROFEN, LEVAQUIN AND FLAGYL. MEDICATIONS On admission: 1. Nifedipine. 2. Vancomycin once daily. 3. Lisinopril. 4. Promethazine. 5. Xanax. PHYSICAL EXAMINATION GENERAL: Physical examination reveals a well-nourished man, in no apparent distress at this time. VITAL SIGNS: Stable. HEAD/NECK: Anicteric sclerae. CHEST: Bilateral air entry with rales. ABDOMEN: Abdomen is soft, nontender. No hepatosplenomegaly. Bowel sounds are present. EAP COUNSELOR: Exam is nonfocal. RECTAL: Exam deferred at this time. IMPRESSION Diarrhea, nausea, vomiting, abdominal pain. Differential diagnosis includes recurrent C-difficile infection versus post infectious diarrhea versus irritable bowel syndrome. RECOMMENDATIONS His previous two admissions showed no evidence of C-difficile toxin in the stools. His previous colonoscopy was essentially unremarkable. At this time he has been restarted on his vancomycin, his dosage has been upgraded. I will add cholestyramine 4 grams q.12 hours. A sigmoidoscopy is tentatively planned for tomorrow. Workup is in progress as outpatient for possible stool transplantation. This has been discussed with Dr. Long. Will follow with you. Thank you for this referral. MD SHARON Rodriguez/LEXUS /2:40 PM /3:07 PM
[2017-04-21] MEDS: SODIUM CHLOR 0.9% 1000 ML INJ 1,000 ML IV SCH ×2 (15:56→23:59)
[2017-04-21] MEDS: ENOXAPARIN SODIUM 30 MG/0.3 ML SYRINGE SQ SCH (15:57)
[2017-04-21] MEDS: VANCOMYCIN 500 MG VIAL (FOR ORAL USE ONLY) PO SCH ×2 (17:39→22:14)
--- NOTE | 2017-04-21 17:40 | HHI.HP ---
[facility] Service [place] [facility] Primary Care Physician Non-Staff Admission Diagnosis Vomiting/diarrhea/C. difficile Diagnoses: (1) Intractable nausea and vomiting Diagnosis: Principal (2) Diarrhea Diagnosis: Principal (3) Dehydration Diagnosis: Secondary Chief Complaint: Diarrhea Nausea and vomiting Travel History International Travel<30 Days: No Contact w/Intl Traveler <30 Da: No Traveled to Known Affected Are: No Sepsis Criteria SIRS Criteria (2 or more): Heart rate over 90, WBC > 00110, < 4000 or > 10% bands History of Present Illness Written by Sheila Link, acting as scribe for Dr. Long on 04/21/17 at 17:42. Mr. Adams is a 62-year-old male patient with a known medical history of multiple bouts of C. diff infection in the past. Last hospital admission on for d ciff infection and was treated with oral Vancomycin. Does follow with Dr. Hughes and was admitted last week to the hospital for worsening diarrhea. Currently taking course of Flagyl at home. Does complain of continued abdominal pain with multiple bouts of diarrhea today. Initially these symptoms started back in February and has worsened since. Denies any blood in stool. Intractable vomiting that started this am. TMAX at home was 101. Admits to good appetite although afraid to have diarrhea or emesis. Does have a consultation in mid-April with the clinic for a gastric implant but unsure if this is still the plan. Denies any current hematochezia. At the time of assessment nausea and vomiting has resolved. Fevers have resolved. Review of Systems Constitutional: COMPLAINS OF: Fatigue, Fever, Chills, Change in appetite Eyes: DENIES: Blurred vision, Diplopia Respiratory: DENIES: Cough, Sputum production Cardiovascular: DENIES: Chest pain Gastrointestinal: COMPLAINS OF: Abdominal pain, Diarrhea, Nausea, Vomiting, DENIES: Black stools, Bloody stools, Constipation Psychiatric: DENIES: Anxiety Except as stated in HPI: all other systems reviewed are Neg Past Family Social History Past Medical History Arthritis. Anxiety disorder. Previous history of C-difficile. History of diverticulitis. Reflux disease. Hypertension. 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 Seizure disorder. Past Surgical History Previous EGD. Colonoscopies. Ankle surgery. Neck surgery. Reported Medications Active Nifedipine ER 24 HR (Nifedipine) 60 Mg Tab 60 Mg PO DAILY Vancomycin (Vancomycin HCl) 250 Mg Cap 500 Mg PO QID Gnp Vitamin B-1 (Thiamine HCl) 100 Mg Tab 100 Mg PO DAILY Reported Lisinopril 20 Mg Tab 20 Mg PO DAILY Amlodipine (Amlodipine Besylate) 5 Mg Tab 5 Mg PO DAILY Promethazine (Promethazine HCl) 12.5 Mg Tab 12.5 Mg PO Q6H PRN Xanax (Alprazolam) 0.5 Mg Tab 0.5 Mg PO Q12HR PRN Allergies: Coded Allergies: codeine (Verified Allergy, Severe, RASH, 04/21/17) ibuprofen (Verified Allergy, Severe, Swelling, 04/21/17) of eyes levofloxacin (Verified Allergy, Severe, ACHILLES TENDON PROBLEM, 04/21/17) metronidazole (Verified Allergy, Unknown, 04/21/17) Active Ordered Medications Current Medications Medications (Trade) Dose Ordered Sig/Quin Route Start Time Stop Time Status Last Admin (Xanax) 0.5 mg Q12HR PRN PO 04/21/17 14:00 (Norvasc) 5 mg DAILY PO 04/22/17 09:00 (Prinivil) 20 mg DAILY PO 04/22/17 09:00 (Procardia Xl) 60 mg DAILY PO 04/22/17 09:00 (Vitamin B1) 100 mg DAILY PO 04/22/17 09:00 (VANCOMYCIN for oral use only) 500 mg QID PO 04/21/17 18:00 04/21/17 17:39 (Phenergan) 12.5 mg Q6H PRN PO 04/21/17 14:30 Sodium Chloride 1,000 ml @ 100 mls/hr Q10H IV 04/21/17 13:56 04/21/17 15:56 (NS Flush) 2 ml UNSCH PRN IV FLUSH 04/21/17 14:00 (NS Flush) 2 ml BID IV FLUSH 04/21/17 21:00 (Tylenol) 650 mg Q4H PRN PO 04/21/17 14:00 (Zofran Inj) 4 mg Q6H PRN IVP 12/27/17 14:00 (Lovenox Inj) 30 mg Q24H SQ 04/21/17 16:00 04/21/17 15:57 (Narcan Inj) 0.4 mg UNSCH PRN IV PUSH 04/21/17 14:00 (Liz-Colace) 1 tab BID PO 04/21/17 21:00 (Milk Of Magnesia Liq) 30 ml Q12H PRN PO 04/21/17 14:00 (Senokot) 17.2 mg Q12H PRN PO 04/21/17 14:00 (Dulcolax Supp) 10 mg DAILY PRN RECTAL 04/21/17 14:00 (Lactulose Liq) 30 ml DAILY PRN PO 04/21/17 14:00 (Questran 4 Gm Pkt) 4 gm Q12HR PO 04/21/17 21:00 Family History Denies any significant family medical history. Social History Previous history of alcohol use but quit in November. Social history also includes marijuana use but no tobacco. Physical Exam Vital Signs Vital Signs Date Time Temp Pulse Resp B/P (MAP) Pulse Ox O2 Delivery O2 Flow Rate FiO2 04/21/17 15:46 99 04/21/17 15:30 99.3 98 18 139/71 (93) 97 04/21/17 14:15 98 16 131/65 (87) 98 04/21/17 11:41 16 04/21/17 11:25 16 99 Room Air 04/21/17 10:52 98.4 115 18 122/86 (98) 98 Physical Exam GENERAL: This is a well-nourished, well-developed patient, in no apparent distress. SKIN: No rashes, ecchymoses or lesions. Warm and dry. HEAD: Atraumatic. Normocephalic. EYES: Pupils equal round and reactive. Extraocular motions intact. No scleral icterus. No injection or drainage. ENT: Nose without bleeding, purulent drainage or septal hematoma. Throat without erythema, tonsillar hypertrophy or exudate. Uvula midline. Airway patent. NECK: Trachea midline. No JVD or lymphadenopathy. Supple, nontender, no meningeal signs. CARDIOVASCULAR: Regular rate and rhythm without murmurs, gallops, or rubs. RESPIRATORY: Clear to auscultation. Breath sounds equal bilaterally. No wheezes , rales, or rhonchi. GASTROINTESTINAL: Abdomen soft, nondistended. No guarding. Tenderness around umbilicus to palpation. Active BS x 4 q. MUSCULOSKELETAL: Extremities without clubbing, cyanosis, or edema. No joint tenderness, effusion, or edema noted. NEUROLOGICAL: Awake and alert. Cranial nerves II through XII intact. Motor and sensory grossly within normal limits. Five out of 5 muscle strength in all muscle groups. Normal speech. Laboratory Laboratory Tests Test 04/21/17 11:25 04/21/17 12:35 White Blood Count 12.2 Red Blood Count 3.25 Hemoglobin 9.3 Hematocrit 28.8 Mean Corpuscular Volume 88.7 Mean Corpuscular Hemoglobin 28.7 Mean Corpuscular Hemoglobin Concent 32.4 Red Cell Distribution Width 17.4 Platelet Count 495 Mean Platelet Volume 7.6 Neutrophils (%) (Auto) 75.7 Lymphocytes (%) (Auto) 15.3 Monocytes (%) (Auto) 7.5 Eosinophils (%) (Auto) 1.1 Basophils (%) (Auto) 0.4 Neutrophils # (Auto) 9.3 Lymphocytes # (Auto) 1.9 Monocytes # (Auto) 0.9 Eosinophils # (Auto) 0.1 Basophils # (Auto) 0.0 CBC Comment DIFF FINAL Differential Comment Stool C. difficile Toxin (PCR) NEGATIVE Stl C. difficile Toxin Epiderm 027 PRESUMPTIVE NEGATIVE Blood Urea Nitrogen 14 Creatinine 1.30 Random Glucose 110 Total Protein 7.9 Albumin 3.3 Calcium Level 9.2 Alkaline Phosphatase 69 Aspartate Amino Transf (AST/SGOT) 30 Alanine Aminotransferase (ALT/SGPT) 38 Total Bilirubin 0.5 Sodium Level 135 Potassium Level 3.9 Chloride Level 103 Carbon Dioxide Level 21.3 Anion Gap 11 Estimat Glomerular Filtration Rate 56 Lipase 95 Urine Collection Type CLEAN CATCH Urine Color YELLOW Urine Turbidity CLEAR Urine pH 6.0 Urine Specific [place] 1.015 Urine Protein NEG Urine Glucose (UA) NEG Urine Ketones NEG Urine Occult Blood NEG Urine Nitrite NEG Urine Bilirubin NEG Urine Leukocyte Esterase NEG Urine WBC 0-2 Microscopic Urinalysis Comment CULT NOT INDICATED Result Diagram: 04/21/17 1125 04/21/17 1125 Septic Shock Reassessment Septic shock perfusion: reassessment completed Caprini VTE Risk Assessment Caprini VTE Risk Assessment: Mod/High Risk (score >= 2) Caprini Risk Assessment Model Point Value = 1 Point Value = 2 Point Value = 3 Point Value = 5 Age 41-60 Minor surgery BMI > 25 kg/m2 Swollen legs Varicose veins or History of unexplained or recurrent spontaneous Oral contraceptives or hormone replacement Sepsis (< 1 month) Serious lung disease, including pneumonia (< 1 month) Abnormal pulmonary function Acute myocardial infarction Congestive heart failure (< 1 month) History of inflammatory bowel disease Medical patient at bed rest Age 61-74 Arthroscopic surgery Major open surgery (> 45 min) Laparoscopic surgery (> 45 min) Malignancy Confined to bed (> 72 hours) Immobilizing plaster cast Central venous access Age >= 75 History of VTE Family history of VTE Factor V Leiden Prothrombin [id number] Lupus anticoagulant Anticardiolipin antibodies Elevated serum homocysteine Heparin-induced thrombocytopenia Other congenital or acquired thrombophilia Stroke (< 1 month) Elective arthroplasty Hip, pelvis, or leg fracture Acute spinal cord injury (< 1 month) Prophylaxis Regimen Total Risk Factor Score Risk Level Prophylaxis Regimen 0-1 Low Early ambulation 2 Moderate Order ONE of the following: *Sequential Compression Device (SCD) *Heparin 5000 units SQ BID 3-4 Higher Order ONE of the following medications: *Heparin 5000 units SQ TID *Enoxaparin/Lovenox 40 mg SQ daily (WT < 150 kg, CrCl > 30 mL/min) *Enoxaparin/Lovenox 30 mg SQ daily (WT < 150 kg, CrCl > 10-29 mL/min) *Enoxaparin/Lovenox 30 mg SQ BID (WT < 150 kg, CrCl > 30 mL/min) AND/OR *Sequential Compression Device (SCD) 5 or more Highest Order ONE of the following medications: *Heparin 5000 units SQ TID (Preferred with Epidurals) *Enoxaparin/Lovenox 40 mg SQ daily (WT < 150 kg, CrCl > 30 mL/min) *Enoxaparin/Lovenox 30 mg SQ daily (WT < 150 kg, CrCl > 10-29 mL/min) *Enoxaparin/Lovenox 30 mg SQ BID (WT < 150 kg, CrCl > 30 mL/min) AND *Sequential Compression Device (SCD) Assessment and Plan Problem List: (1) Intractable nausea and vomiting ICD Code: R11.2 - Nausea with vomiting, unspecified (2) Diarrhea ICD Code: R19.7 - Diarrhea Status: Acute Assessment and Plan Intractable nausea and vomiting with presence of dehydration Ongoing and worsening diarrhea with history of c. diff infection currently on antibiotics Stool specimen sent for c diff which is negative. GI has been consulted, appreciate further input and recommendations. Plan is to restart oral Vancomycin and increase the dose. Questran has also been added. A sigmoidoscopy will be planned for tomorrow. Will continue to work patient up for possible stool transplantation. Ensure hydration, NS @ 100 ml/hr. Control pain, Morphine IV available PRN per pain scale. Hypertension, chronic: Continue home medications. Continue to monitor BP trends. DVT Prophylaxis: SCDs. Lovenox. This note was transcribed by VIDAL Arguello . I, Dr. Kindra Long personally performed the history, physical exam, and medical decision making; and confirmed the accuracy of the information in the transcribed note. Authenticated by Dr. Kindra Long on 04/21/17 at 17:42. Physician Certification 2 Midnight Certification Type: Admission for Inpatient Services Order for Inpatient Services The services are ordered in accordance with Medicare regulations or non- Medicare payer requirements, as applicable. In the case of services not specified as inpatient-only, they are appropriately provided as inpatient services in accordance with the 2-midnight benchmark. Estimated LOS (days): 3 3 days is the estimated time the patient will need to remain in the hospital, assuming treatment plan goals are met and no additional complications. Post-Hospital Plan: Home Sheila Link Apr 21, 2017 17:40 Kindra Long MD Apr 21, 2017 19:51
[2017-04-21] MEDS: MORPHINE SULFATE 2 MG/ML INJ IV PUSH PRN ×2 (18:50→23:58)
[2017-04-21] MEDS: DOCUSATE SODIUM 50 MG/SENNA 8.6 MG TAB PO SCH (21:00)
[2017-04-21] MEDS: CHOLESTYRAMINE 4 GM PACKET PO SCH (22:13)
[2017-04-21] MEDS: SODIUM CHLORIDE 0.9% FLUSH 10 ML FLUSH IV FLUSH SCH (22:14)
[2017-04-21] MEDS ORDERED: LOPERAMIDE HCL 2 MG CAP PO ONE (23:15)
[2017-04-22] VITALS (7 sets, daily range): BP systolic 139–169; BP diastolic 82–93; PULSE 80–106; RESP 17–19; TEMP 96.5–98.8; O2SAT 97–99
[2017-04-22] MEDS: ONDANSETRON HCL 4 MG/2 ML VIAL IVP PRN (00:10)
[2017-04-22 06:35] LABS: BASOPHIL % 0.4 % (0.0-2.0); EOSINOPHIL # 0.2 TH/MM3 (0-0.4); EOSINOPHIL % 1.8 % (0.0-4.0); HEMATOCRIT 28.5 % (39.0-51.0); LYMPH % 21.3 % (9.0-44.0); LYMPHOCYTE # 2.5 TH/MM3 (1.0-4.8); MEAN CELL VOLUME 89.7 FL (80.0-100.0); MEAN CORPUSCULAR HEMOGLOBIN 28.3 PG (27.0-34.0); MEAN CORPUSCULAR HGB CONC 31.5 % (32.0-36.0); MEAN PLATELET VOLUME 8.1 FL (7.0-11.0); MONO % 10.3 % (0.0-8.0); MONOCYTE # 1.2 TH/MM3 (0-0.9); NEUT % 66.2 % (16.0-70.0); PLATELET COUNT 503 TH/MM3 (150-450); RED BLOOD COUNT 3.17 MIL/MM3 (4.50-5.90); RED CELL DISTRIBUTION WIDTH 17.8 % (11.6-17.2); WHITE BLOOD COUNT 11.9 TH/MM3 (4.0-11.0)
[2017-04-22 06:50] LABS: BICARBONATE 18.1 MEQ/L (21.0-32.0); CALCIUM 8.5 MG/DL (8.5-10.1)
[2017-04-22 06:54] LABS: CREATININE 1.2 MG/DL (0.60-1.30)
[2017-04-22] MEDS: THIAMINE HCL 100 MG TAB PO SCH (09:00)
[2017-04-22] MEDS: VANCOMYCIN 500 MG VIAL (FOR ORAL USE ONLY) PO SCH ×4 (09:00→21:41)
[2017-04-22] MEDS: amLODIPine BESYLATE 5 MG TAB PO SCH (09:00)
[2017-04-22] MEDS: SODIUM CHLORIDE 0.9% FLUSH 10 ML FLUSH IV FLUSH SCH ×2 (09:00→21:43)
[2017-04-22] MEDS: DOCUSATE SODIUM 50 MG/SENNA 8.6 MG TAB PO SCH ×2 (09:00→21:41)
[2017-04-22] MEDS: LISINOPRIL 20 MG TAB PO SCH (09:00)
[2017-04-22] MEDS: NIFEdipine 60 MG SUSTAINED RELEASE TAB PO SCH (09:00)
[2017-04-22] MEDS: CHOLESTYRAMINE 4 GM PACKET PO SCH ×2 (09:00→21:41)
[2017-04-22] MEDS: SODIUM CHLOR 0.9% 1000 ML INJ 1,000 ML IV SCH ×2 (09:56→21:43)
--- NOTE | 2017-04-22 14:09 | HHI.PR ---
Subjective Remarks Still with significant diarrhea, no n/v. No fever or chills. Went for sigmoidoscopy. Objective Vitals Vital Signs Date Time Temp Pulse Resp B/P (MAP) Pulse Ox O2 Delivery O2 Flow Rate FiO2 04/22/17 12:55 98.1 88 16 112/72 (85) 98 04/22/17 12:45 83 15 114/71 (85) 98 04/22/17 12:35 98.1 88 16 110/71 (84) 99 04/22/17 12:11 96.5 81 18 148/84 (105) 98 04/22/17 12:10 96.5 81 18 148/84 (105) 98 04/22/17 11:11 98.8 99 17 139/82 (101) 97 04/22/17 08:00 96.7 86 18 150/88 (108) 97 04/22/17 08:00 99 21 04/22/17 00:00 98.8 99 17 139/82 (101) 97 04/21/17 20:00 99.2 101 18 147/86 (106) 98 04/21/17 19:49 98 21 04/21/17 15:46 99 04/21/17 15:30 99.3 98 18 139/71 (93) 97 04/21/17 14:15 98 16 131/65 (87) 98 I/O 04/21/17 04/21/17 04/21/17 04/22/17 04/22/17 04/22/17 07:00 15:00 23:00 07:00 15:00 23:00 Intake Total 1000 ml 400 ml Balance 1000 ml 400 ml Intake IV Total 1000 ml 400 ml # Voids 3 Result Diagram: 04/22/1761304/22/17613 Objective Remarks GENERAL: This is a well-nourished, well-developed patient, in no apparent distress. CARDIOVASCULAR: Regular rate and rhythm without murmurs, gallops, or rubs. RESPIRATORY: Clear to auscultation. Breath sounds equal bilaterally. No wheezes , rales, or rhonchi. GASTROINTESTINAL: Abdomen soft, nondistended. No guarding. Tenderness around umbilicus to palpation. Active BS x 4 q. MUSCULOSKELETAL: Extremities without clubbing, cyanosis, or edema. No joint tenderness, effusion, or edema noted. NEUROLOGICAL: Awake and alert. Cranial nerves II through XII intact. Motor and sensory grossly within normal limits. Five out of 5 muscle strength in all muscle groups. Normal speech. A/P Problem List: (1) Intractable nausea and vomiting ICD Code: R11.2 - Nausea with vomiting, unspecified (2) Diarrhea ICD Code: R19.7 - Diarrhea Status: Acute (3) Dehydration ICD Code: E86.0 - Dehydration Status: Acute Assessment and Plan Intractable nausea and vomiting with presence of dehydration Ongoing and worsening diarrhea with history of c. diff infection currently on antibiotics Stool specimen sent for c diff which is negative. GI has been consulted, appreciate further input and recommendations. Plan is to restart oral Vancomycin and increase the dose. Questran has also been added. S/p sigmoidoscopy Possible stool transplantation. Ensure hydration, NS @ 100 ml/hr. Control pain, Morphine IV available PRN per pain scale. Hypertension, chronic: Continue home medications. Continue to monitor BP trends. DVT Prophylaxis: SCDs. Lovenox. DC plan: pending improvement and clearance from GI Kindra Long MD Apr 22, 2017 14:09
[2017-04-22] MEDS: ALPRAZolam 0.5 MG TAB PO PRN ×2 (14:49→22:40)
[2017-04-22] MEDS: MORPHINE SULFATE 2 MG/ML INJ IV PUSH PRN ×2 (14:49→22:41)
[2017-04-22] MEDS: ENOXAPARIN SODIUM 30 MG/0.3 ML SYRINGE SQ SCH (14:49)
[2017-04-22] MEDS: chlordiazePOXIDE/CLIDINIUM 5 MG/2.5 MG CAP PO SCH (17:00)
[2017-04-22] MEDS ORDERED: guaiFENesin/CODEINE SYRUP 200 MG/20 MG/10 ML CUP PO PRN (17:30)
[2017-04-22] MEDS: guaiFENesin SOLUTION 200 MG/10 ML CUP PO PRN (23:13)
[2017-04-23] VITALS: BP 150/83; PULSE 98; RESP 18; TEMP 98.4; O2SAT 99
[2017-04-23] MEDS: SODIUM CHLOR 0.9% 1000 ML INJ 1,000 ML IV SCH (05:02)
[2017-04-23] MEDS: guaiFENesin SOLUTION 200 MG/10 ML CUP PO PRN (05:40)
[2017-04-23] MEDS: ONDANSETRON HCL 4 MG/2 ML VIAL IVP PRN ×2 (05:40→13:14)
[2017-04-23] MEDS: MORPHINE SULFATE 2 MG/ML INJ IV PUSH PRN ×2 (05:41→11:09)
[2017-04-23 06:31] LABS: AUTOMATED NEUTROPHIL # 5.9 TH/MM3 (1.8-7.7); BASOPHIL % 0.4 % (0.0-2.0); EOSINOPHIL # 0.3 TH/MM3 (0-0.4); EOSINOPHIL % 2.9 % (0.0-4.0); HEMATOCRIT 25.1 % (39.0-51.0); HEMOGLOBIN 8.3 GM/DL (13.0-17.0); LYMPH % 23.6 % (9.0-44.0); LYMPHOCYTE # 2.2 TH/MM3 (1.0-4.8); MEAN CELL VOLUME 89.5 FL (80.0-100.0); MEAN CORPUSCULAR HEMOGLOBIN 29.4 PG (27.0-34.0); MEAN CORPUSCULAR HGB CONC 32.8 % (32.0-36.0); MEAN PLATELET VOLUME 7.4 FL (7.0-11.0); MONO % 8.5 % (0.0-8.0); MONOCYTE # 0.8 TH/MM3 (0-0.9); NEUT % 64.6 % (16.0-70.0); PLATELET COUNT 455 TH/MM3 (150-450); RED BLOOD COUNT 2.81 MIL/MM3 (4.50-5.90); RED CELL DISTRIBUTION WIDTH 16.8 % (11.6-17.2); WHITE BLOOD COUNT 9.2 TH/MM3 (4.0-11.0)
[2017-04-23 06:58] LABS: BICARBONATE 15.9 MEQ/L (21.0-32.0); CALCIUM 8.3 MG/DL (8.5-10.1)
[2017-04-23 08:00] VITALS: BP 179/94; PULSE 92; RESP 18; TEMP 98; O2SAT 98
[2017-04-23] MEDS: chlordiazePOXIDE/CLIDINIUM 5 MG/2.5 MG CAP PO SCH ×2 (08:00→12:00)
[2017-04-23] MEDS: NIFEdipine 60 MG SUSTAINED RELEASE TAB PO SCH (08:26)
[2017-04-23] MEDS: SODIUM CHLORIDE 0.9% FLUSH 10 ML FLUSH IV FLUSH SCH (08:27)
[2017-04-23] MEDS: LISINOPRIL 20 MG TAB PO SCH (08:27)
[2017-04-23] MEDS: amLODIPine BESYLATE 5 MG TAB PO SCH (08:27)
[2017-04-23] MEDS: THIAMINE HCL 100 MG TAB PO SCH (08:27)
[2017-04-23] MEDS: VANCOMYCIN 500 MG VIAL (FOR ORAL USE ONLY) PO SCH (08:28)
[2017-04-23] MEDS: DOCUSATE SODIUM 50 MG/SENNA 8.6 MG TAB PO SCH (08:28)
[2017-04-23] MEDS: CHOLESTYRAMINE 4 GM PACKET PO SCH (08:28)
--- NOTE | 2017-04-23 10:18 | HHI.GIFU ---
Subjective Remarks Pt resting in bed, in no apparent distress. Reports diarrhea in the middle of the night, resolved with Librax this morning. Reports mild abdominal pain since procedure yesterday. (Telma Bernard) Objective Vitals I&O Vital Signs Date Time Temp Pulse Resp B/P (MAP) Pulse Ox O2 Delivery O2 Flow Rate FiO2 04/23/17 08:00 98.0 92 18 179/94 (122) 98 04/23/17 00:00 98.4 98 18 150/83 (105) 99 04/22/17 23:01 98 21 04/22/17 20:00 98.6 106 19 169/93 (118) 98 04/22/17 16:10 98.2 80 18 148/87 (107) 98 04/22/17 14:56 18 04/22/17 12:55 98.1 88 16 112/72 (85) 98 04/22/17 12:45 83 15 114/71 (85) 98 04/22/17 12:35 98.1 88 16 110/71 (84) 99 04/22/17 12:11 96.5 81 18 148/84 (105) 98 04/22/17 12:10 96.5 81 18 148/84 (105) 98 04/22/17 11:11 98.8 99 17 139/82 (101) 97 I/O 04/22/17 04/22/17 04/22/17 04/23/17 04/23/17 04/23/17 06:59 14:59 22:59 06:59 14:59 22:59 Intake Total 400 ml 784 ml Output Total 600 ml Balance 400 ml -600 ml 784 ml Intake IV Total 400 ml 784 ml Output Urine Total 600 ml # Voids 3 3 2 # Bowel Movements 5 3 Laboratory Laboratory Tests Test 04/23/17 06:20 White Blood Count 9.2 Red Blood Count 2.81 Hemoglobin 8.3 Hematocrit 25.1 Mean Corpuscular Volume 89.5 Mean Corpuscular Hemoglobin 29.4 Mean Corpuscular Hemoglobin Concent 32.8 Red Cell Distribution Width 16.8 Platelet Count 455 Mean Platelet Volume 7.4 Neutrophils (%) (Auto) 64.6 Lymphocytes (%) (Auto) 23.6 Monocytes (%) (Auto) 8.5 Eosinophils (%) (Auto) 2.9 Basophils (%) (Auto) 0.4 Neutrophils # (Auto) 5.9 Lymphocytes # (Auto) 2.2 Monocytes # (Auto) 0.8 Eosinophils # (Auto) 0.3 Basophils # (Auto) 0.0 CBC Comment DIFF FINAL Differential Comment Blood Urea Nitrogen 12 Creatinine 1.00 Random Glucose 88 Calcium Level 8.3 Sodium Level 137 Potassium Level 3.8 Chloride Level 109 Carbon Dioxide Level 15.9 Anion Gap 12 Estimat Glomerular Filtration Rate 75 Physical Exam HEENT: Normocephalic; atraumatic CHEST: Even/unlabored CARDIAC: RRR ABDOMEN: Soft, nondistended, mild diffuse TTP; no hepatosplenomegaly; bowel sounds active x 4. EXTREMITIES: No clubbing, cyanosis, or edema. SKIN: Normal; no rash; no jaundice. 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 (Telma Bernard) Assessment and Plan Plan Assessment - Diarrhea- C. diff toxin negative. Sigmoidoscopy (04/22) --> Diverticulosis, hemorrhoid, colon polyps. Biopsy pending. Librax was added with improvement in symptoms. Cholestyramine was also added , according to chart pt refused. Plan - Colon pathology pending - Cholestyramine - Librax - Supportive care - OK to DC from a GI standpoint, have pt follow up in office in 1-2 weeks Pt has been seen and examined by myself and Dr. Walsh and this note is written on his behalf (Telma Bernard) Physician Comments Seen and examined with VIDAL, feeling better with Librax. Colon biopsies-p. (Elaine Walsh MD) Telma Bernard Apr 23, 2017 10:18 Elaine Walsh MD Apr 23, 2017 14:05
[2017-04-23] MEDS: ALPRAZolam 0.5 MG TAB PO PRN (11:09)
[2017-04-23] MEDS ORDERED: DICY10 PO (11:12)
[2017-04-23] MEDS ORDERED: CHOL4POW4 PO (11:12)
--- NOTE | 2017-04-23 11:13 | HHI.DS ---
Discharge Summary Admission Date Apr 21, 2017 at 13:59 Discharge Date: Apr 23, 2017 Admitting Diagnosis Vomiting/diarrhea/C. difficile (1) Intractable nausea and vomiting ICD Code: R11.2 - Nausea with vomiting, unspecified Diagnosis: Principal (2) Diarrhea ICD Code: R19.7 - Diarrhea Diagnosis: Principal Status: Acute (3) Dehydration ICD Code: E86.0 - Dehydration Diagnosis: Secondary Status: Acute Procedures sigmoidoscopy Brief History - From Admission Written by Sheila Link, acting as scribe for Dr. Long on 04/21/17 at 17:42. Mr. Adams is a 62-year-old male patient with a known medical history of multiple bouts of C. diff infection in the past. Last hospital admission on for d ciff infection and was treated with oral Vancomycin. Does follow with Dr. Hughes and was admitted last week to the hospital for worsening diarrhea. Currently taking course of Flagyl at home. Does complain of continued abdominal pain with multiple bouts of diarrhea today. Initially these symptoms started back in February and has worsened since. Denies any blood in stool. Intractable vomiting that started this am. TMAX at home was 101. Admits to good appetite although afraid to have diarrhea or emesis. Does have a consultation in mid-April with the clinic for a gastric implant but unsure if this is still the plan. Denies any current hematochezia. At the time of assessment nausea and vomiting has resolved. Fevers have resolved. CBC/BMP: 04/23/17 0620 04/23/17 0620 Significant Findings Laboratory Tests Test 04/21/17 11:25 04/21/17 12:35 04/22/17 06:14 04/23/17 06:20 White Blood Count 12.2 TH/MM3 (4.0-11.0) 11.9 TH/MM3 (4.0-11.0) Red Blood Count 3.25 MIL/MM3 (4.50-5.90) 3.17 MIL/MM3 (4.50-5.90) 2.81 MIL/MM3 (4.50-5.90) Hemoglobin 9.3 GM/DL (13.0-17.0) 9.0 GM/DL (13.0-17.0) 8.3 GM/DL (13.0-17.0) Hematocrit 28.8 % (39.0-51.0) 28.5 % (39.0-51.0) 25.1 % (39.0-51.0) Red Cell Distribution Width 17.4 % (11.6-17.2) 17.8 % (11.6-17.2) Platelet Count 495 TH/MM3 (150-450) 503 TH/MM3 (150-450) 455 TH/MM3 (150-450) Neutrophils (%) (Auto) 75.7 % (16.0-70.0) Neutrophils # (Auto) 9.3 TH/MM3 (1.8-7.7) 8.0 TH/MM3 (1.8-7.7) Random Glucose 110 MG/DL (74-106) Albumin 3.3 GM/DL (3.4-5.0) Sodium Level 135 MEQ/L (136-145) Estimat Glomerular Filtration Rate 56 ML/MIN (>89) 61 ML/MIN (>89) 75 ML/MIN (>89) Mean Corpuscular Hemoglobin Concent 31.5 % (32.0-36.0) Monocytes (%) (Auto) 10.3 % (0.0-8.0) 8.5 % (0.0-8.0) Monocytes # (Auto) 1.2 TH/MM3 (0-0.9) Carbon Dioxide Level 18.1 MEQ/L (21.0-32.0) 15.9 MEQ/L (21.0-32.0) Calcium Level 8.3 MG/DL (8.5-10.1) Chloride Level 109 MEQ/L (98-107) PE at Discharge GENERAL: This is a well-nourished, well-developed patient, in no apparent distress. CARDIOVASCULAR: Regular rate and rhythm without murmurs, gallops, or rubs. RESPIRATORY: Clear to auscultation. Breath sounds equal bilaterally. No wheezes , rales, or rhonchi. GASTROINTESTINAL: Abdomen soft, nondistended. No guarding. Tenderness around umbilicus to palpation. Active BS x 4 q. MUSCULOSKELETAL: Extremities without clubbing, cyanosis, or edema. No joint tenderness, effusion, or edema noted. NEUROLOGICAL: Awake and alert. Cranial nerves II through XII intact. Motor and sensory grossly within normal limits. Five out of 5 muscle strength in all muscle groups. Normal speech. Pt update on day of discharge Had one time diarrhea overnight, no more episodes since then. No fever or chills. No nausea vomiting. No abdominal pain. Denies chest pain or shortness of breath. Cleared by gastroenterology for discharged follow-up as outpatient Hospital Course Intractable nausea and vomiting with presence of dehydration Ongoing and worsening diarrhea with history of c. diff infection currently on antibiotics Stool specimen sent for c diff which is negative. GI has been consulted, appreciate further input and recommendations. Plan is to restart oral Vancomycin and increase the dose. Questran has also been added. S/ p sigmoidoscopy Pain medications per pain scale Hypertension, chronic: Continue home medications. Continue to monitor BP trends. DVT Prophylaxis: SCDs. Lovenox. Patient improved, discharged home in stable condition to follow-up as outpatient with PCP and consultants Pt Condition on Discharge: Stable Discharge Disposition: Discharge Home Discharge Time: > 30 minutes Discharge Instructions DIET: Follow Instructions for: As Tolerated, No Restrictions Activities you can perform: Regular-No Restrictions Follow up Referrals: Gastroenterology - 2 Weeks PCP Follow-up - 2-3 Days New Medications: Dicyclomine (Bentyl) 10 Mg Cap 10 MG PO QID for Bowel Management, #60 CAP 0 Refills Oxycodone (Oxycodone) 5 Mg Cap 5 MG PO Q6H PRN for PAIN, #20 CAP 0 Refills Cholestyramine (Cholestyramine) 4 Gm/Pkt Powd 4 GM PO Q12HR for diarrhea, #60 GM 1 packet contains 4 grams of cholestyramine. Continued Medications: Alprazolam (Xanax) 0.5 Mg Tab 0.5 MG PO Q12HR PRN for ANXIETY, TAB 0 Refills Amlodipine (Amlodipine) 5 Mg Tab 5 MG PO DAILY for Blood Pressure Management, #30 TAB 0 Refills Lisinopril (Lisinopril) 20 Mg Tab 20 MG PO DAILY, #30 TAB 0 Refills Nifedipine ER 24 HR (Nifedipine ER 24 HR) 60 Mg Tab 60 MG PO DAILY for Blood Pressure Management, #30 TAB 3 Refills Promethazine (Promethazine) 12.5 Mg Tab 12.5 MG PO Q6H PRN for NAUSEA OR VOMITING, TAB 0 Refills Thiamine HCl (Gnp Vitamin B-1) 100 Mg Tab 100 MG PO DAILY for Alcohol Detox, #30 TAB Vancomycin (Vancomycin) 250 Mg Cap 500 MG PO QID for Infection, #144 CAP 0 Refills Kindra Long MD Apr 23, 2017 11:13
[2017-04-23 11:15] VITALS: O2SAT 98
[2017-04-23] MEDS ORDERED: PROPOFOL 200 MG/20 ML AMP IV ONE (12:00)
[2017-04-23] MEDS ORDERED: OXYC1CAP PO (12:40)
[2017-04-23] MEDS ORDERED: DICYCLOMINE HCL 20 MG TAB PO SCH (13:00)
== END 2017-04-23 13:59 | disposition home or self-care (01) | DRG 392 ==
LOC: PHED 10:52 → PHEDA 13:44 → OBSVTOIN 13:59 → PH3A 14:20
PROVIDERS: ADMIT Hospitalist; ATTEND Hospitalist
PROC: 0DBL8ZX Excision of Transverse Colon, Via Natural or Artificial Opening Endoscopic, Diagnostic (ICD-10-PCS; 2017-04-22)
PROC: 0DBN8ZX Excision of Sigmoid Colon, Via Natural or Artificial Opening Endoscopic, Diagnostic (ICD-10-PCS; principal; 2017-04-22 12:06)
DX: R11.2 Nausea with vomiting, unspecified (principal); I10 Essential (primary) hypertension; E86.0 Dehydration; F41.9 Anxiety disorder, unspecified; M19.90 Unspecified osteoarthritis, unspecified site; K21.9 Gastro-esophageal reflux disease without esophagitis; G40.909 Epilepsy, unspecified, not intractable, without status epilepticus; K57.30 Diverticulosis of large intestine without perforation or abscess without bleeding; K63.5 Polyp of colon; K64.9 Unspecified hemorrhoids
CPT/HCPCS: 80048; 80053; 81001; 83690; 85025; 87493; 88305; 96374; 96375; 96376; G0378; J1650; J2270; J2405; J2550; J7030

== ENCOUNTER 2017-07-06 15:57 | Emergency (ER) | payer BC ==
[~2017-07-06] VITALS: Ht 175.3 cm; Wt 66.0 kg
[~2017-07-06 15:57] MED LIST changes: +AMLO5TAB2 PO; +CHOL4POW4 PO; +DICY10 PO; -GUAISYP4 PO; +LISI-515 PO; +OXYC1CAP PO
[2017-07-06 16:01] VITALS: BP 143/88; PULSE 118; RESP 16; TEMP 98.3; O2SAT 100
[2017-07-06] MEDS ORDERED: FLOR250C PO (16:16)
[2017-07-06] MEDS ORDERED: SODIUM CHLOR 0.9% 1000 ML INJ 1,000 ML IV SCH (16:24)
[2017-07-06] MEDS ORDERED: SODIUM CHLORIDE 0.9% FLUSH 10 ML FLUSH IV FLUSH PRN (16:30)
[2017-07-06] MEDS ORDERED: ONDANSETRON HCL 4 MG/2 ML VIAL IVP ONE (16:30)
[2017-07-06] MEDS ORDERED: MORPHINE SULFATE 8 MG/ML INJ IV PUSH ONE (16:30)
--- NOTE | 2017-07-06 16:39 | PD ---
HPI Chief Complaint: Abdominal Pain Time Seen by Provider: 16:09 Travel History International Travel<30 days: No Contact w/Intl Traveler<30days: No Traveled to known affect area: No History of Present Illness HPI Patient is a 62-year-old male presents emergency department for evaluation of lower quadrant abdominal pain nausea vomiting and diarrhea which started late last night and early this morning. Patient states she has a history of recurrent C. difficile colitis, has not been on antibiotics since March for this. He states he has a intolerance to Flagyl so has a standing order for vancomycin when he needs it. He states he also has a history of diverticulitis and does not know if one is predominating. He is also had some nausea and nonbilious and nonbloody emesis. No fevers. States symptoms are moderate, associated with abdominal cramping nausea vomiting and diarrhea, context as above, gradually worsening. 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 ) Asthma: No Autoimmune Disease: No Anxiety: Yes Depression: No Heart Rhythm Problems: No Cancer: No Cardiovascular Problems: Yes (HTN) High Cholesterol: No Chemotherapy: No Chest Pain: No Congestive Heart Failure: No COPD: No Cerebrovascular Accident: No Diabetes: No Diminished Hearing: Yes (L ear ) Diverticulitis: Yes Endocrine: No Gastrointestinal Disorders: Yes (diverticulitis, ) GERD: Yes Genitourinary: Yes Headaches: No Hiatal Hernia: No Heparin Induced Thrombocytopen: No Hypertension: Yes Immune Disorder: No Implanted Vascular Access Dvce: Yes Kidney Stones: No Musculoskeletal: Yes Neurologic: Yes Psychiatric: Yes Reproductive: No Respiratory: No Immunizations Current: Yes Migraines: No Pancreatitis: Yes Radiation Therapy: No Renal Failure: No Seizures: Yes (2009) Sickle Cell Disease: No Sleep Apnea: No Thyroid Disease: No Ulcer: No PNEUMOCCOCAL Vaccine (Year): 2 Past Surgical History Abdominal Surgery: No AICD: No Arteriovenous Shunt: No Body Medical Devices: DISSOLVABLE SCREW IN LEFT ANKLE - placed 2015, titanium femur Cardiac Surgery: No Ear Surgery: No Endocrine Surgery: No Eye Surgery: No Genitourinary Surgery: No Gynecologic Surgery: No Hysterectomy: No Insulin Pump: No Joint Replacement: No Neurologic Surgery: No Oral Surgery: No Pacemaker: No Thoracic Surgery: Yes Other Surgery: Yes (2 BACK AND ONE NECK SURGERIES-microdiskectomy,left achilles tendon repair) Social History Alcohol Use: No (QUIT 2016) Tobacco Use: No Substance Use: Yes (Marijuana , etoh ) Allergies-Medications (Allergen,Severity, Reaction): Coded Allergies: codeine (Verified Allergy, Severe, RASH, 07/06/17) ibuprofen (Verified Allergy, Severe, Swelling, 07/06/17) of eyes levofloxacin (Verified Allergy, Severe, ACHILLES TENDON PROBLEM, 07/06/17) metronidazole (Verified Allergy, Severe, Nausea/Vomiting, 07/06/17) Reported Meds & Prescriptions Reported Meds & Active Scripts Active Bentyl (Dicyclomine HCl) 10 Mg Cap 10 Mg PO QID Reported Florastor (Saccharomyces Boulardii) 250 Mg Cap 250 Mg PO BID Lisinopril 20 Mg Tab 20 Mg PO DAILY Amlodipine (Amlodipine Besylate) 5 Mg Tab 5 Mg PO DAILY Promethazine (Promethazine HCl) 12.5 Mg Tab 12.5 Mg PO Q6H PRN Xanax (Alprazolam) 0.5 Mg Tab 0.5 Mg PO Q12HR PRN Review of Systems Except as stated in HPI: all other systems reviewed are Neg Physical Exam Narrative GENERAL: Well-developed well-nourished no obvious distress SKIN: Focused skin assessment warm/dry. HEAD: Atraumatic. Normocephalic. EYES: Pupils equal and round. No scleral icterus. No injection or drainage. ENT: No nasal bleeding or discharge. Mucous membranes pink and moist. NECK: Trachea midline. No JVD. CARDIOVASCULAR: Regular rate and rhythm. No murmur appreciated. RESPIRATORY: No accessory muscle use. Clear to auscultation. Breath sounds equal bilaterally. GASTROINTESTINAL: Abdomen soft, non-tender, nondistended. Hepatic and splenic margins not palpable. No rebound no percussive tenderness. MUSCULOSKELETAL: No obvious deformities. No clubbing. No cyanosis. No edema. NEUROLOGICAL: Awake and alert. No obvious cranial nerve deficits. Motor grossly within normal limits. Normal speech. PSYCHIATRIC: Appropriate mood and affect; insight and judgment normal. Data Data Last Documented VS Vital Signs Date Time Temp Pulse Resp B/P (MAP) Pulse Ox O2 Delivery O2 Flow Rate FiO2 07/06/17 20:10 07/06/17 19:24 96 16 98 Room Air 07/06/17 16:01 98.3 Orders Orders Complete Blood Count With Diff (07/06/17 16:24) Comprehensive Metabolic Panel (07/06/17 16:24) Lipase (07/06/17 16:24) Ct Abd/Pel W Iv Contrast(Rout) (07/06/17 16:24) Iv Access Insert/Monitor (07/06/17 16:24) Ecg Monitoring (07/06/17 16:24) Oximetry (07/06/17 16:24) Ondansetron Inj (Zofran Inj) (07/06/17 16:30) Sodium Chlor 0.9% 1000 Ml Inj (Ns 1000 M (07/06/17 16:24) Sodium Chloride 0.9% Flush (Ns Flush) (07/06/17 16:30) Morphine Inj (Morphine Inj) (07/06/17 16:30) C Diff Toxin Pcr (07/06/17 16:26) Iohexol 350 Inj (Omnipaque 350 Inj) (07/06/17 18:10) Sodium Chlor 0.9% 1000 Ml Inj (Ns 1000 M (07/06/17 18:30) Sodium Chlor 0.9% 1000 Ml Inj (Ns 1000 M (07/06/17 18:45) Ed Discharge Order (07/06/17 20:01) Labs Laboratory Tests Test 07/06/17 16:40 07/06/17 16:45 Stool C. difficile Toxin (PCR) NEGATIVE Stl C. difficile Toxin Epiderm 027 PRESUMPTIVE NEGATIVE White Blood Count 14.2 TH/MM3 Red Blood Count 4.51 MIL/MM3 Hemoglobin 12.8 GM/DL Hematocrit 38.5 % Mean Corpuscular Volume 85.2 FL Mean Corpuscular Hemoglobin 28.3 PG Mean Corpuscular Hemoglobin Concent 33.2 % Red Cell Distribution Width 16.7 % Platelet Count 370 TH/MM3 Mean Platelet Volume 8.9 FL Neutrophils (%) (Auto) 79.4 % Lymphocytes (%) (Auto) 13.2 % Monocytes (%) (Auto) 5.7 % Eosinophils (%) (Auto) 0.0 % Basophils (%) (Auto) 1.7 % Neutrophils # (Auto) 11.3 TH/MM3 Lymphocytes # (Auto) 1.9 TH/MM3 Monocytes # (Auto) 0.8 TH/MM3 Eosinophils # (Auto) 0.0 TH/MM3 Basophils # (Auto) 0.2 TH/MM3 CBC Comment AUTO DIFF Differential Comment AUTO DIFF CONFIRMED Blood Urea Nitrogen 27 MG/DL Creatinine 1.50 MG/DL Random Glucose 99 MG/DL Total Protein 8.9 GM/DL Albumin 4.4 GM/DL Calcium Level 9.2 MG/DL Alkaline Phosphatase 102 U/L Aspartate Amino Transf (AST/SGOT) 23 U/L Alanine Aminotransferase (ALT/SGPT) 17 U/L Total Bilirubin 0.4 MG/DL Sodium Level 137 MEQ/L Potassium Level 4.1 MEQ/L Chloride Level 104 MEQ/L Carbon Dioxide Level 18.2 MEQ/L Anion Gap 15 MEQ/L Estimat Glomerular Filtration Rate 47 ML/MIN Lipase 295 U/L MDM Medical Decision Making Medical Screen Exam Complete: Yes Emergency Medical Condition: Yes Differential Diagnosis C. difficile, diarrhea, elective abnormality, acute kidney injury Narrative Course Patient room to the emergency department, basic labs were significant for creatinine of 1.5, looking through his labs appears his baseline probably runs about 0.9-1. He has been admitted for acute kidney injury in the past but he is also been here in the past with similar creatinines is responded quite well to fluids in the emergency department. CAT scan of his abdomen was performed shows the following results Last 24 hours Impressions Abdomen/Pelvis CT 07/06/17 1624 Signed Impressions: Service Date/Time: Thursday, July 06, 2017 18:05 - CONCLUSION: Diverticulosis of the sigmoid colon with low-grade uncomplicated diverticulitis. Apparent mild , diffuse ileus without focal obstruction demonstrated. Alonzo Baca MD Patient does have bowel sounds, he was medicated in the emergency department with morphine and Zofran, he did tolerate a p.o. challenge and tolerated greater than 8 ounces of Gatorade. He states he is feeling much better. His C. difficile was negative. The patient's abdomen is benign and he appears well and is tolerating p.o. fluids. I discussed with him all of his results and he would like to go home at this time. He seems well versed in knowing what creatinine is, I discussed with him that if he is unable to keep fluids down at home he is urged to return to the emergency department immediately. He does have Bentyl at home as well as promethazine. He is stable for discharge Diagnosis Primary Impression: Diarrhea Additional Impression: Nausea & vomiting Additional Instructions: Ok to continue the bentyl (dicyclomine) Disposition: 01 DISCHARGE HOME Condition: Stable Nilesh Smith MD Jul 06, 2017 16:39
[2017-07-06 17:05] VITALS: BP 141/98; PULSE 112; RESP 18; O2SAT 100
[2017-07-06 17:18] LABS: AUTOMATED NEUTROPHIL # 11.3 TH/MM3 (1.8-7.7); BASOPHIL # 0.2 TH/MM3 (0-0.2); BASOPHIL % 1.7 % (0.0-2.0); HEMATOCRIT 38.5 % (39.0-51.0); HEMOGLOBIN 12.8 GM/DL (13.0-17.0); LYMPH % 13.2 % (9.0-44.0); LYMPHOCYTE # 1.9 TH/MM3 (1.0-4.8); MEAN CELL VOLUME 85.2 FL (80.0-100.0); MEAN CORPUSCULAR HEMOGLOBIN 28.3 PG (27.0-34.0); MEAN CORPUSCULAR HGB CONC 33.2 % (32.0-36.0); MEAN PLATELET VOLUME 8.9 FL (7.0-11.0); MONO % 5.7 % (0.0-8.0); MONOCYTE # 0.8 TH/MM3 (0-0.9); NEUT % 79.4 % (16.0-70.0); PLATELET COUNT 370 TH/MM3 (150-450); RED BLOOD COUNT 4.51 MIL/MM3 (4.50-5.90); RED CELL DISTRIBUTION WIDTH 16.7 % (11.6-17.2); WHITE BLOOD COUNT 14.2 TH/MM3 (4.0-11.0)
[2017-07-06 17:25] LABS: CHLORIDE 104 MEQ/L (98-107); SODIUM (NA) 137 MEQ/L (136-145)
[2017-07-06 17:31] LABS: CALCIUM 9.2 MG/DL (8.5-10.1)
[2017-07-06 17:32] LABS: ALBUMIN 4.4 GM/DL (3.4-5.0); BICARBONATE 18.2 MEQ/L (21.0-32.0); BLOOD UREA NITROGEN 27 MG/DL (7-18); GLUCOSE,RANDOM 99 MG/DL (74-106)
[2017-07-06 17:34] LABS: ALT (GPT) 17 U/L (12-78)
[2017-07-06 17:35] LABS: AST (GOT) 23 U/L (15-37); GLOMERULAR FILTRATION RATE 47 ML/MIN (>89)
[2017-07-06 17:36] LABS: TOTAL BILIRUBIN ADULT 0.4 MG/DL (0.2-1.0); TOTAL PROTEIN 8.9 GM/DL (6.4-8.2)
[2017-07-06 17:37] LABS: ALKALINE PHOSPHATASE 102 U/L (45-117)
[2017-07-06 18:04] VITALS: BP 154/90; PULSE 97; RESP 18; O2SAT 99
[2017-07-06] MEDS ORDERED: IOHEXOL 350 MG/ML 10 ML VIAL (for RAD DIAG) IVCONTRAST ONE (18:10)
[2017-07-06] MEDS ORDERED: SODIUM CHLOR 0.9% 1000 ML INJ 1,000 ML IV ONE ×2 (18:30→18:45)
--- NOTE | 2017-07-06 18:32 | RADRPT ---
EXAM DATE/TIME: 07/06/2017 18:05 [facility] COMPARISON: CT ABDOMEN & PELVIS W/O CONTRAST, March 16, 2017, 12:08. CT ABDOMEN & PELVIS W CONTRAST, October 17, 2016, 12:31. INDICATIONS : Abdominal pain with nausea, vomiting, and diarrhea. IV CONTRAST: 85 cc Omnipaque 350 (iohexol) IV ORAL CONTRAST: No oral contrast ingested. RADIATION DOSE: 8.24 CTDIvol (mGy) MEDICAL HISTORY : Hypertension. Diverticulitis. Pancreatitis.Colitis. SURGICAL HISTORY : Back surgery. ENCOUNTER: Initial ACUITY: 1 day PAIN SCALE: 3/10 LOCATION: pelvis TECHNIQUE: Volumetric scanning of the abdomen and pelvis was performed. Using automated exposure control and ad justment of the mA and/or kV according to patient size, radiation dose was kept as low as reasonably achievable to obtain optimal diagnostic quality images. DICOM format image data is available electro nically for review and comparison. FINDINGS: LOWER LUNGS: The visualized lower lungs are clear. LIVER: Homogeneous density without lesion. There is no dilation of the biliary tree. No calcified gallston es. SPLEEN: Normal size without lesion. PANCREAS: Within normal limits. KIDNEYS: Normal in size and shape. There is no mass, stone or hydronephrosis. ADRENAL GLANDS: Within normal limits. VASCULAR: There is no aortic aneurysm. BOWEL/MESENTERY: Diffuse upper limits of normal caliber small bowel with fluid. There is also fluid in the proximal co kavya. No abrupt caliber changes are demonstrated. Diverticulosis seen in the sigmoid colon and with mi ld wall thickening and minimal inflammatory changes. The appendix is normal. ABDOMINAL WALL: Within normal limits. RETROPERITONEUM: There is no lymphadenopathy. BLADDER: No wall thickening or mass. REPRODUCTIVE: Within normal limits. INGUINAL: There is no lymphadenopathy or hernia. MUSCULOSKELETAL: No acute bony abnormality demonstrated. CONCLUSION: Diverticulosis of the sigmoid colon with low-grade uncomplicated diverticulitis. Apparent mild, diffu se ileus without focal obstruction demonstrated. Alonzo Baca MD on July 06, 2017 at 18:26 Board Certified Radiologist. This report was verified electronically.
[2017-07-06 19:24] VITALS: BP 156/96; PULSE 96; RESP 16; O2SAT 98
== END 2017-07-06 20:18 | disposition home or self-care (01) ==
LOC: PHED 15:57
DX: R19.7 Diarrhea, unspecified (principal); R11.2 Nausea with vomiting, unspecified; I10 Essential (primary) hypertension; K21.9 Gastro-esophageal reflux disease without esophagitis; F12.90 Cannabis use, unspecified, uncomplicated; Z88.5 Allergy status to narcotic agent; Z88.1 Allergy status to other antibiotic agents; Z88.8 Allergy status to other drugs, medicaments and biological substances
CPT/HCPCS: 74177; 80053; 83690; 85025; 87493; 96361; 96374; 96375; 99284; J2270; J2405; J7030; Q9967

== ENCOUNTER 2017-07-08 15:04 | Inpatient (IN) | payer BC ==
[~2017-07-08] VITALS: Ht 175.3 cm; Wt 65.5 kg
[~2017-07-08 15:04] MED LIST changes: -CHOL4POW4 PO; +FLOR250C PO; -NIFE60TA58 PO; -OXYC1CAP PO; -THIA100 PO; -VANC250C2 PO
[2017-07-08 15:22] VITALS: BP 99/71; PULSE 126; RESP 16; TEMP 99.5; O2SAT 99
[2017-07-08] MEDS ORDERED: SODIUM CHLOR 0.9% 1000 ML INJ 1,000 ML IV SCH (16:48)
[2017-07-08 16:57] VITALS: O2SAT 96
[2017-07-08] MEDS ORDERED: SODIUM CHLORIDE 0.9% FLUSH 10 ML FLUSH IV FLUSH PRN ×2 (17:00→18:45)
[2017-07-08] MEDS ORDERED: ONDANSETRON HCL 4 MG/2 ML VIAL IVP ONE (17:00)
[2017-07-08] MEDS ORDERED: MORPHINE SULFATE 4 MG/ML INJ IV PUSH ONE ×2 (17:00→18:45)
[2017-07-08 17:09] LABS: CHLORIDE 100 MEQ/L (98-107); SODIUM (NA) 134 MEQ/L (136-145)
[2017-07-08 17:13] LABS: ALBUMIN 4.3 GM/DL (3.4-5.0); BICARBONATE 19.8 MEQ/L (21.0-32.0); BLOOD UREA NITROGEN 31 MG/DL (7-18); CALCIUM 9.2 MG/DL (8.5-10.1); GLUCOSE,RANDOM 90 MG/DL (74-106)
[2017-07-08 17:16] LABS: ALT (GPT) 14 U/L (12-78); AST (GOT) 17 U/L (15-37); INTERNATIONAL NORMALIZED RATIO 0.9 RATIO; PROTHROMBIN TIME - PATIENT 9.5 SEC (9.8-11.6)
[2017-07-08 17:31] LABS: AUTOMATED NEUTROPHIL # 10.9 TH/MM3 (1.8-7.7); BASOPHIL % 0.2 % (0.0-2.0); EOSINOPHIL % 0.2 % (0.0-4.0); HEMATOCRIT 35.9 % (39.0-51.0); HEMOGLOBIN 11.6 GM/DL (13.0-17.0); LYMPH % 15.3 % (9.0-44.0); LYMPHOCYTE # 2.2 TH/MM3 (1.0-4.8); MEAN CELL VOLUME 84.8 FL (80.0-100.0); MEAN CORPUSCULAR HEMOGLOBIN 27.4 PG (27.0-34.0); MEAN CORPUSCULAR HGB CONC 32.3 % (32.0-36.0); MEAN PLATELET VOLUME 7.7 FL (7.0-11.0); MONO % 9.3 % (0.0-8.0); MONOCYTE # 1.4 TH/MM3 (0-0.9); PLATELET COUNT 303 TH/MM3 (150-450); RED BLOOD COUNT 4.24 MIL/MM3 (4.50-5.90); RED CELL DISTRIBUTION WIDTH 16.5 % (11.6-17.2); WHITE BLOOD COUNT 14.5 TH/MM3 (4.0-11.0)
[2017-07-08 18:00] LABS: GLOMERULAR FILTRATION RATE 25 ML/MIN (>89)
[2017-07-08 18:01] LABS: ALKALINE PHOSPHATASE 100 U/L (45-117); TOTAL BILIRUBIN ADULT 0.3 MG/DL (0.2-1.0)
--- NOTE | 2017-07-08 18:12 | RADRPT ---
EXAM DATE/TIME: 07/08/2017 17:59 [facility] COMPARISON: No previous studies available for comparison. INDICATIONS : Lower abdominal pain, nausea, vomiting and diarrhea. ORAL CONTRAST: No oral contrast ingested. RADIATION DOSE: 12.57 CTDIvol (mGy) MEDICAL HISTORY : Cardiovascular disease. Hypertension. Pancreatitis. SURGICAL HISTORY : Discectomy, lumbar. Discectomy, cervical. ENCOUNTER: Initial ACUITY: 1 day PAIN SCALE: 4/10 LOCATION: Bilateral lower quadrant TECHNIQUE: Volumetric scanning of the abdomen and pelvis was performed. Using automated exposure control and ad justment of the mA and/or kV according to patient size, radiation dose was kept as low as reasonably achievable to obtain optimal diagnostic quality images. DICOM format image data is available electro nically for review and comparison. FINDINGS: The lung bases are clear except for minimal scarring. No acute findings in the liver, spleen, adrenal s, kidneys or pancreas. No calcified gallstones or biliary ductal dilatation. There is a mild ileus. There is colonic diverticulosis without diverticulitis. There is some residual contrast within the bladder. Overall no significant change compared with July 06. Previous left hip replacement. CONCLUSION: 1. No acute findings. Residual contrast in bladder from injection performed yesterday. Left hip repla cement. Diffuse mild ileus similar to prior examination. No evidence for obstruction. Colonic diverti culosis. Efren Ca MD on July 08, 2017 at 18:07 Board Certified Radiologist. This report was verified electronically.
[2017-07-08] MEDS: SODIUM CHLOR 0.9% 1000 ML INJ 1,000 ML IV SCH (18:44)
[2017-07-08] MEDS ORDERED: NALOXONE HCL 0.4 MG/ML AMP IV PUSH PRN (18:45)
[2017-07-08] MEDS ORDERED: Vancomycin Consult Pharmacy 1 EA OTHER SCH (18:45)
[2017-07-08] MEDS ORDERED: ONDANSETRON HCL 4 MG/2 ML VIAL IV PUSH ONE (18:45)
[2017-07-08] MEDS ORDERED: SODIUM CHLOR 0.9% 1000 ML INJ 1,000 ML IV ONE (18:45)
[2017-07-08 18:46] VITALS: BP 153/96; PULSE 112; RESP 16; O2SAT 98
--- NOTE | 2017-07-08 18:46 | PD ---
HPI Chief Complaint: GI Complaint Time Seen by Provider: 16:37 Travel History International Travel<30 days: No Contact w/Intl Traveler<30days: No Traveled to known affect area: No History of Present Illness HPI Patient is a 62-year-old male with history of multiple episodes of C. difficile and issues with diarrhea. He says he is supposed to have a stool transplant, but this has not been scheduled yet. He reports a week of diarrhea. He was here 2 days ago, had labs and a CAT scan done that showed no acute abnormalities. He was discharged home. He says the diarrhea and vomiting have continued and he is concerned for dehydration. He also complains of worsening lower abdominal pain. He has not had fever or chills. He says he has been trying to drink water, but says he feels like he cannot keep up. He follows with Dr. Walsh of GI. Severity is mild to moderate. 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 ) Asthma: No Autoimmune Disease: No Anxiety: Yes Depression: No Heart Rhythm Problems: No Cancer: No Cardiovascular Problems: Yes (HTN) High Cholesterol: No Chemotherapy: No Chest Pain: No Congestive Heart Failure: No COPD: No Cerebrovascular Accident: No Diabetes: No Diminished Hearing: Yes (L ear ) Diverticulitis: Yes Endocrine: No Gastrointestinal Disorders: Yes (diverticulitis, ) GERD: Yes Genitourinary: Yes Headaches: No Hiatal Hernia: No Heparin Induced Thrombocytopen: No Hypertension: Yes Immune Disorder: No Implanted Vascular Access Dvce: Yes Kidney Stones: No Musculoskeletal: Yes Neurologic: Yes Psychiatric: Yes Reproductive: No Respiratory: No Immunizations Current: Yes Migraines: No Pancreatitis: Yes Radiation Therapy: No Renal Failure: No Seizures: Yes (2009) Sickle Cell Disease: No Sleep Apnea: No Thyroid Disease: No Ulcer: No Tetanus Vaccination: < 5 Years Influenza Vaccination: Yes PNEUMOCCOCAL Vaccine (Year): 2 Past Surgical History Abdominal Surgery: No AICD: No Arteriovenous Shunt: No Body Medical Devices: DISSOLVABLE SCREW IN LEFT ANKLE - placed 2014, titanium femur Cardiac Surgery: No Ear Surgery: No Endocrine Surgery: No Eye Surgery: No Genitourinary Surgery: No Gynecologic Surgery: No Hysterectomy: No Insulin Pump: No Joint Replacement: No Neurologic Surgery: No Oral Surgery: No Pacemaker: No Thoracic Surgery: Yes Other Surgery: Yes (2 BACK AND ONE NECK SURGERIES-microdiskectomy,left achilles tendon repair) Social History Alcohol Use: No (QUIT 2016) Tobacco Use: No Substance Use: Yes (Marijuana , etoh ) Allergies-Medications (Allergen,Severity, Reaction): Coded Allergies: codeine (Verified Allergy, Severe, RASH, 07/08/17) ibuprofen (Verified Allergy, Severe, Swelling, 07/08/17) of eyes levofloxacin (Verified Allergy, Severe, ACHILLES TENDON PROBLEM, 07/08/17) metronidazole (Verified Allergy, Severe, Nausea/Vomiting, 07/08/17) Reported Meds & Prescriptions Reported Meds & Active Scripts Active Bentyl (Dicyclomine HCl) 10 Mg Cap 10 Mg PO QID Reported Florastor (Saccharomyces Boulardii) 250 Mg Cap 250 Mg PO BID Lisinopril 20 Mg Tab 20 Mg PO DAILY Amlodipine (Amlodipine Besylate) 5 Mg Tab 5 Mg PO DAILY Promethazine (Promethazine HCl) 12.5 Mg Tab 12.5 Mg PO Q6H PRN Xanax (Alprazolam) 0.5 Mg Tab 0.5 Mg PO Q12HR PRN Review of Systems Except as stated in HPI: all other systems reviewed are Neg General / Constitutional: No: Fever, Chills HENT: No: Headaches, Lightheadedness Cardiovascular: No: Chest Pain or Discomfort Respiratory: No: Shortness of Breath Gastrointestinal: Positive: Nausea, Vomiting, Diarrhea, Abdominal Pain Genitourinary: No: Dysuria Musculoskeletal: No: Myalgias Skin: No Rash, No Change in Pigmentation Neurologic: No: Weakness, Dizziness Physical Exam Narrative GENERAL: Awake and alert, in no acute distress. SKIN: Focused skin assessment warm/dry. No wounds or signs of infection. HEAD: Atraumatic. Normocephalic. EYES: Pupils equal and round. No scleral icterus. ENT: No nasal bleeding or discharge. Mucous membranes pink and moist. NECK: Trachea midline. No JVD. CARDIOVASCULAR: Tachycardia. No murmur appreciated. RESPIRATORY: No accessory muscle use. Clear to auscultation. Breath sounds equal bilaterally. GASTROINTESTINAL: Abdomen soft, nondistended. Tenderness to palpation along the lower abdomen. No rebound or guarding. MUSCULOSKELETAL: No obvious deformities. No clubbing. No cyanosis. No edema. NEUROLOGICAL: Awake and alert. No obvious cranial nerve deficits. Motor grossly within normal limits. Normal speech. PSYCHIATRIC: Appropriate mood and affect; insight and judgment normal. Data Data Last Documented VS Vital Signs Date Time Temp Pulse Resp B/P (MAP) Pulse Ox O2 Delivery O2 Flow Rate FiO2 07/08/17 18:46 112 16 153/96 (115) 98 Room Air 07/08/17 15:22 99.5 Orders Orders Complete Blood Count With Diff (07/08/17 16:48) Comprehensive Metabolic Panel (07/08/17 16:48) Lipase (07/08/17 16:48) Prothrombin Time / Inr (Pt) (07/08/17 16:48) Act Partial Throm Time (Ptt) (07/08/17 16:48) Iv Access Insert/Monitor (07/08/17 16:48) Ecg Monitoring (07/08/17 16:48) Oximetry (07/08/17 16:48) Morphine Inj (Morphine Inj) (07/08/17 17:00) Ondansetron Inj (Zofran Inj) (07/08/17 17:00) Sodium Chlor 0.9% 1000 Ml Inj (Ns 1000 M (07/08/17 16:48) Sodium Chloride 0.9% Flush (Ns Flush) (07/08/17 17:00) Ct Abd/Pel W/O Iv Contrast (07/08/17 ) C Diff Toxin Pcr (07/08/17 16:48) Sodium Chlor 0.9% 1000 Ml Inj (Ns 1000 M (07/08/17 18:45) Ondansetron Inj (Zofran Inj) (07/08/17 18:45) Morphine Inj (Morphine Inj) (07/08/17 18:45) Admit To Inpatient (07/08/17 ) Vital Signs (Adult) Q4H (07/08/17 18:44) Activity Bed Rest With Brp (07/08/17 18:44) Senior Support Analyst / Telemetry .CONTINUOUS (07/08/17 18:44) Diet Regular Basic (07/08/17 Dinner) Sodium Chlor 0.9% 1000 Ml Inj (Ns 1000 M (07/08/17 18:44) Sodium Chloride 0.9% Flush (Ns Flush) (07/08/17 18:45) Sodium Chloride 0.9% Flush (Ns Flush) (07/08/17 21:00) Ondansetron Inj (Zofran Inj) (07/08/17 18:45) Comprehensive Metabolic Panel (07/09/17 06:00) Complete Blood Count With Diff (07/09/17 06:00) Scd Bilateral/Knee High ANUSHA.BID (07/08/17 18:44) Morphine Inj (Morphine Inj) (07/08/17 18:45) Morphine Inj (Morphine Inj) (07/08/17 18:45) Naloxone Inj (Narcan Inj) (07/08/17 18:45) Inpatient Certification (07/08/17 ) Consult Gastroenterology (07/08/17 ) Vancomycin Consult Pharmacy (Vancomycin (07/08/17 18:45) Vancomycin Inj (Vancomycin Inj) (07/08/17 20:00) Blood Culture (07/08/17 18:49) Vancomycin 25 Mg/Ml Liq (Vancomycin 25 M (07/08/17 21:00) Misc. Nursing Information (07/11/17 01:45) (Hub Use Only)Inp Phy Cons/Ref (07/08/17 ) Random Vancomycin (07/09/17 06:00) Admit Order (Ed Use Only) (07/08/17 ) Labs Laboratory Tests Test 07/08/17 14:55 07/08/17 17:10 07/08/17 17:25 Prothrombin Time 9.5 SEC Prothromb Time International Ratio 0.9 RATIO Activated Partial Thromboplast Time 22.2 SEC Blood Urea Nitrogen 31 MG/DL Creatinine 2.60 MG/DL Random Glucose 90 MG/DL Total Protein 9.0 GM/DL Albumin 4.3 GM/DL Calcium Level 9.2 MG/DL Alkaline Phosphatase 100 U/L Aspartate Amino Transf (AST/SGOT) 17 U/L Alanine Aminotransferase (ALT/SGPT) 14 U/L Total Bilirubin 0.3 MG/DL Sodium Level 134 MEQ/L Potassium Level 4.0 MEQ/L Chloride Level 100 MEQ/L Carbon Dioxide Level 19.8 MEQ/L Anion Gap 14 MEQ/L Estimat Glomerular Filtration Rate 25 ML/MIN Lipase 200 U/L Stool C. difficile Toxin (PCR) POSITIVE Stl C. difficile Toxin Epiderm 027 PRESUMPTIVE NEGATIVE White Blood Count 14.5 TH/MM3 Red Blood Count 4.24 MIL/MM3 Hemoglobin 11.6 GM/DL Hematocrit 35.9 % Mean Corpuscular Volume 84.8 FL Mean Corpuscular Hemoglobin 27.4 PG Mean Corpuscular Hemoglobin Concent 32.3 % Red Cell Distribution Width 16.5 % Platelet Count 303 TH/MM3 Mean Platelet Volume 7.7 FL Neutrophils (%) (Auto) 75.0 % Lymphocytes (%) (Auto) 15.3 % Monocytes (%) (Auto) 9.3 % Eosinophils (%) (Auto) 0.2 % Basophils (%) (Auto) 0.2 % Neutrophils # (Auto) 10.9 TH/MM3 Lymphocytes # (Auto) 2.2 TH/MM3 Monocytes # (Auto) 1.4 TH/MM3 Eosinophils # (Auto) 0.0 TH/MM3 Basophils # (Auto) 0.0 TH/MM3 CBC Comment DIFF FINAL Differential Comment MDM Medical Decision Making Medical Screen Exam Complete: Yes Emergency Medical Condition: Yes Medical Record Reviewed: Yes Differential Diagnosis Dehydration versus diverticulitis versus colitis versus C. difficile Narrative Course Patient is a 62-year-old male who comes in complaining of diarrhea and dehydration. Exam shows tachycardia lower abdominal tenderness. IV established , labs sent. Labs show a creatinine of 2.6, this is up from 1.[address] abdomen and pelvis performed shows no acute abnormalities. Patient admitted for dehydration and SHAVONNE. Diagnosis Primary Impression: Acute kidney injury Additional Impression: Diarrhea Qualified Codes: A09 - Infectious gastroenteritis and colitis, unspecified Admitting Information Admitting Physician Requests: Admit Sheila Gottlieb MD Jul 08, 2017 18:46
--- NOTE | 2017-07-08 19:01 | HHI.HP ---
[facility] Yamil Collado, DO Admission Diagnosis Diagnoses: Travel History International Travel<30 Days: No Contact w/Intl Traveler <30 Da: No Traveled to Known Affected Are: No History of Present Illness Mr. Adams is a 62-year-old male. he has a history of recurrent C. difficile. He comes back to the hospital today with complaints of diarrhea. At this point she showing signs of dehydration despite trying to take oral hydration at home. As an outpatient he follows with Dr. Hughes. Today in the ER he has tachycardia, leukocytosis, and an apparent bowel infection which qualifies him with sepsis criteria. Review of Systems Constitutional: DENIES: Fatigue, Fever, Night Sweats Eyes: DENIES: Blurred vision, Diplopia, Eye inflammation Ears, nose, mouth, throat: DENIES: Hearing loss, Vertigo, Nasal discharge Respiratory: DENIES: Cough, Wheezing, Shortness of breath Cardiovascular: DENIES: Chest pain, Palpitations, Syncope Gastrointestinal: COMPLAINS OF: Diarrhea, DENIES: Abdominal pain, Black stools , Bloody stools Musculoskeletal: DENIES: Joint pain, Muscle aches, Stiffness Integumentary: DENIES: Abnormal pigmentation, Nail changes, Pruritus, Rash Hematologic/lymphatic: DENIES: Bruising, Lymphadenopathy Immunologic/allergic: DENIES: Eczema, Urticaria Neurologic: DENIES: Abnormal gait, Headache, Paresthesias Psychiatric: DENIES: Anxiety, Confusion, Hallucinations Past Family Social History Past Medical History Arthritis. Anxiety disorder. Previous history of C-difficile. History of diverticulitis. Reflux disease. Hypertension. 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 Seizure disorder. Past Surgical History Previous EGD. Colonoscopies. Ankle surgery. Neck surgery. Reported Medications Reported Meds & Active Scripts Active Bentyl (Dicyclomine HCl) 10 Mg Cap 10 Mg PO QID Reported Florastor (Saccharomyces Boulardii) 250 Mg Cap 250 Mg PO BID Lisinopril 20 Mg Tab 20 Mg PO DAILY Amlodipine (Amlodipine Besylate) 5 Mg Tab 5 Mg PO DAILY Promethazine (Promethazine HCl) 12.5 Mg Tab 12.5 Mg PO Q6H PRN Xanax (Alprazolam) 0.5 Mg Tab 0.5 Mg PO Q12HR PRN Allergies: Coded Allergies: codeine (Verified Allergy, Severe, RASH, 07/08/17) ibuprofen (Verified Allergy, Severe, Swelling, 07/08/17) of eyes levofloxacin (Verified Allergy, Severe, ACHILLES TENDON PROBLEM, 07/08/17) metronidazole (Verified Allergy, Severe, Nausea/Vomiting, 07/08/17) Active Ordered Medications Administered Medications Medications (Trade) Dose Ordered Sig/Quin Route PRN Reason Start Time Stop Time Status Last Admin Dose Admin Sodium Chloride 1,000 ml @ 999 mls/hr BOLUS ONCE IV 07/08/17 18:45 07/08/17 19:45 07/08/17 18:43 Family History Denies any significant family medical history. Social History Previous history of alcohol use but quit in November. Social history also includes marijuana use but no tobacco. Physical Exam Vital Signs Vital Signs Date Time Temp Pulse Resp B/P (MAP) Pulse Ox O2 Delivery O2 Flow Rate FiO2 07/08/17 18:46 112 16 153/96 (115) 98 Room Air 07/08/17 16:57 96 Room Air 07/08/17 15:22 99.5 126 16 99/71 (80) 99 Physical Exam GENERAL: NAD, A&Ox3 HEAD: Normocephalic. NECK: Supple, trachea midline. No lymphadenopathy. EYES: No scleral icterus. No injection or drainage. CARDIOVASCULAR: Regular rate and rhythm without murmurs, gallops, or rubs. RESPIRATORY: Breath sounds equal bilaterally. No accessory muscle use. GASTROINTESTINAL: Abdomen soft, non-tender, nondistended. MUSCULOSKELETAL: No cyanosis, or edema. SKIN: Warm and dry. NEURO: No focal neurological deficitis. Laboratory Laboratory Tests Test 07/08/17 14:55 07/08/17 17:10 07/08/17 17:25 Prothrombin Time 9.5 Prothromb Time International Ratio 0.9 Activated Partial Thromboplast Time 22.2 Blood Urea Nitrogen 31 Creatinine 2.60 Random Glucose 90 Total Protein 9.0 Albumin 4.3 Calcium Level 9.2 Alkaline Phosphatase 100 Aspartate Amino Transf (AST/SGOT) 17 Alanine Aminotransferase (ALT/SGPT) 14 Total Bilirubin 0.3 Sodium Level 134 Potassium Level 4.0 Chloride Level 100 Carbon Dioxide Level 19.8 Anion Gap 14 Estimat Glomerular Filtration Rate 25 Lipase 200 White Blood Count 14.5 Red Blood Count 4.24 Hemoglobin 11.6 Hematocrit 35.9 Mean Corpuscular Volume 84.8 Mean Corpuscular Hemoglobin 27.4 Mean Corpuscular Hemoglobin Concent 32.3 Red Cell Distribution Width 16.5 Platelet Count 303 Mean Platelet Volume 7.7 Neutrophils (%) (Auto) 75.0 Lymphocytes (%) (Auto) 15.3 Monocytes (%) (Auto) 9.3 Eosinophils (%) (Auto) 0.2 Basophils (%) (Auto) 0.2 Neutrophils # (Auto) 10.9 Lymphocytes # (Auto) 2.2 Monocytes # (Auto) 1.4 Eosinophils # (Auto) 0.0 Basophils # (Auto) 0.0 CBC Comment DIFF FINAL Differential Comment Result Diagram: 07/08/17 1725 07/08/17 1455 Septic Shock Reassessment Septic shock perfusion: reassessment completed Caprini VTE Risk Assessment Caprini VTE Risk Assessment: Mod/High Risk (score >= 2) Caprini Risk Assessment Model Point Value = 1 Point Value = 2 Point Value = 3 Point Value = 5 Age 41-60 Minor surgery BMI > 25 kg/m2 Swollen legs Varicose veins or History of unexplained or recurrent spontaneous Oral contraceptives or hormone replacement Sepsis (< 1 month) Serious lung disease, including pneumonia (< 1 month) Abnormal pulmonary function Acute myocardial infarction Congestive heart failure (< 1 month) History of inflammatory bowel disease Medical patient at bed rest Age 61-74 Arthroscopic surgery Major open surgery (> 45 min) Laparoscopic surgery (> 45 min) Malignancy Confined to bed (> 72 hours) Immobilizing plaster cast Central venous access Age >= 75 History of VTE Family history of VTE Factor V Leiden Prothrombin [id number] Lupus anticoagulant Anticardiolipin antibodies Elevated serum homocysteine Heparin-induced thrombocytopenia Other congenital or acquired thrombophilia Stroke (< 1 month) Elective arthroplasty Hip, pelvis, or leg fracture Acute spinal cord injury (< 1 month) Prophylaxis Regimen Total Risk Factor Score Risk Level Prophylaxis Regimen 0-1 Low Early ambulation 2 Moderate Order ONE of the following: *Sequential Compression Device (SCD) *Heparin 5000 units SQ BID 3-4 Higher Order ONE of the following medications: *Heparin 5000 units SQ TID *Enoxaparin/Lovenox 40 mg SQ daily (WT < 150 kg, CrCl > 30 mL/min) *Enoxaparin/Lovenox 30 mg SQ daily (WT < 150 kg, CrCl > 10-29 mL/min) *Enoxaparin/Lovenox 30 mg SQ BID (WT < 150 kg, CrCl > 30 mL/min) AND/OR *Sequential Compression Device (SCD) 5 or more Highest Order ONE of the following medications: *Heparin 5000 units SQ TID (Preferred with Epidurals) *Enoxaparin/Lovenox 40 mg SQ daily (WT < 150 kg, CrCl > 30 mL/min) *Enoxaparin/Lovenox 30 mg SQ daily (WT < 150 kg, CrCl > 10-29 mL/min) *Enoxaparin/Lovenox 30 mg SQ BID (WT < 150 kg, CrCl > 30 mL/min) AND *Sequential Compression Device (SCD) Assessment and Plan Problem List: (1) Nausea & vomiting ICD Code: R11.2 - Nausea and vomiting Status: Resolved (2) Diarrhea ICD Code: R19.7 - Diarrhea Status: Acute (3) Intractable nausea and vomiting ICD Code: R11.2 - Nausea with vomiting, unspecified (4) Dehydration ICD Code: E86.0 - Dehydration Status: Acute (5) Acute kidney injury ICD Code: N17.9 - Acute kidney failure, unspecified Status: Resolved (6) Sepsis ICD Code: A41.9 - Sepsis, unspecified organism Status: Acute Assessment and Plan 62-year-old male admitted secondary to diarrhea, acute kidney injury, and sepsis Sepsis 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 difficile Obtain blood cultures IV vancomycin By mouth vancomycin Follow cultures GI consulted Monitor symptoms Acute kidney injury Avoid nephrotoxins IV hydration Follow renal function Likely related to dehydration If unimproved will consult nephrology Arthritis. Anxiety disorder. History of diverticulitis. Reflux disease. 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 Seizure disorder. Continue baseline treatments No exacerbations are seen of these conditions DVT prophylaxis SCDs as patient is at high bleed risk Physician Certification 2 Midnight Certification Type: Admission for Inpatient Services Order for Inpatient Services The services are ordered in accordance with Medicare regulations or non- Medicare payer requirements, as applicable. In the case of services not specified as inpatient-only, they are appropriately provided as inpatient services in accordance with the 2-midnight benchmark. Estimated LOS (days): 2 days is the estimated time the patient will need to remain in the hospital, assuming treatment plan goals are met and no additional complications. Post-Hospital Plan: Damion Vera MD Jul 08, 2017 19:01
[2017-07-08] MEDS: VANCOMYCIN INJ 1,000 MG in SODIUM CHLOR 0.9% 250 ML INJ 250 ML IV SCH (19:54)
[2017-07-08 21:23] VITALS: BP 137/82; TEMP 98.2
[2017-07-08 21:30] VITALS: BP 142/82; PULSE 93; RESP 20; TEMP 97.7; O2SAT 99
[2017-07-08] MEDS: MORPHINE SULFATE 2 MG/ML INJ IV PUSH PRN (22:14)
[2017-07-08] MEDS: SODIUM CHLORIDE 0.9% FLUSH 10 ML FLUSH IV FLUSH SCH (22:15)
[2017-07-08] MEDS: VANCOMYCIN 25 MG/ML SOLN 100 ML BOTTLE PO SCH (23:06)
[2017-07-09] VITALS (8 sets, daily range): BP systolic 119–180; BP diastolic 81–86; PULSE 84–122; RESP 16–20; TEMP 96.7–98.9; O2SAT 97–99
[2017-07-09] MEDS: ONDANSETRON HCL 4 MG/2 ML VIAL IVP PRN ×3 (01:14→20:09)
[2017-07-09] MEDS: MORPHINE SULFATE 2 MG/ML INJ IV PUSH PRN ×5 (01:41→21:04)
[2017-07-09] MEDS: SODIUM CHLOR 0.9% 1000 ML INJ 1,000 ML IV SCH ×3 (04:44→20:10)
[2017-07-09 06:07] LABS: AUTOMATED NEUTROPHIL # 12.2 TH/MM3 (1.8-7.7); BASOPHIL % 0.3 % (0.0-2.0); EOSINOPHIL # 0.1 TH/MM3 (0-0.4); EOSINOPHIL % 0.5 % (0.0-4.0); HEMATOCRIT 32.1 % (39.0-51.0); HEMOGLOBIN 10.6 GM/DL (13.0-17.0); LYMPH % 15.1 % (9.0-44.0); LYMPHOCYTE # 2.4 TH/MM3 (1.0-4.8); MEAN CORPUSCULAR HEMOGLOBIN 28.1 PG (27.0-34.0); MEAN PLATELET VOLUME 8.8 FL (7.0-11.0); MONO % 9.5 % (0.0-8.0); MONOCYTE # 1.5 TH/MM3 (0-0.9); NEUT % 74.6 % (16.0-70.0); PLATELET COUNT 281 TH/MM3 (150-450); RED BLOOD COUNT 3.78 MIL/MM3 (4.50-5.90); RED CELL DISTRIBUTION WIDTH 16.1 % (11.6-17.2); WHITE BLOOD COUNT 16.2 TH/MM3 (4.0-11.0)
[2017-07-09 06:10] LABS: CHLORIDE 104 MEQ/L (98-107); SODIUM (NA) 135 MEQ/L (136-145)
[2017-07-09 06:34] LABS: ALBUMIN 3.5 GM/DL (3.4-5.0); ALKALINE PHOSPHATASE 77 U/L (45-117); ALT (GPT) 12 U/L (12-78); AST (GOT) 12 U/L (15-37); BLOOD UREA NITROGEN 28 MG/DL (7-18); CALCIUM 7.7 MG/DL (8.5-10.1); GLOMERULAR FILTRATION RATE 34 ML/MIN (>89); GLUCOSE,RANDOM 79 MG/DL (74-106); TOTAL BILIRUBIN ADULT 0.2 MG/DL (0.2-1.0); TOTAL PROTEIN 7.2 GM/DL (6.4-8.2)
[2017-07-09] MEDS ORDERED: POTASSIUM CHLORIDE 10 MEQ CONTROLLED RELEASE TAB PO ONE (08:30)
[2017-07-09] MEDS: SODIUM CHLORIDE 0.9% FLUSH 10 ML FLUSH IV FLUSH SCH ×2 (08:41→20:11)
[2017-07-09] MEDS: VANCOMYCIN 25 MG/ML SOLN 100 ML BOTTLE PO SCH ×4 (08:42→20:11)
[2017-07-09 10:19] LABS: RANDOM VANCOMYCIN 13.5 COMMENT
[2017-07-09] MEDS: VANCOMYCIN INJ 1,000 MG in SODIUM CHLOR 0.9% 250 ML INJ 250 ML IV SCH (13:08)
--- NOTE | 2017-07-09 16:22 | HHI.PR ---
Subjective Remarks C. difficile is positive. Patient has no new complaints today. Diarrhea still present. No fevers. Objective Vital Signs Date Time Temp Pulse Resp B/P (MAP) Pulse Ox O2 Delivery O2 Flow Rate FiO2 07/09/17 12:00 97.2 88 20 124/85 (98) 98 07/09/17 08:00 96.7 85 20 151/84 (106) 98 07/09/17 04:00 98.4 84 16 137/81 (99) 98 07/09/17 00:00 97.9 94 18 119/83 (95) 98 07/08/17 21:30 97.7 93 20 142/82 (102) 99 07/08/17 21:23 98.2 98 14 137/82 (100) 98 07/08/17 18:46 112 16 153/96 (115) 98 Room Air 07/08/17 16:57 96 Room Air I/O 07/08/17 07/08/17 07/08/17 07/09/17 07/09/17 07/09/17 07:00 15:00 23:00 07:00 15:00 23:00 Intake Total 2250 ml 1280 ml 480 ml Output Total 0 ml Balance 2250 ml 1280 ml 480 ml Intake Oral 280 ml 480 ml IV Total 2250 ml 1000 ml Output Stool Total 0 ml # Voids 1 2 Result Diagram: 07/09/17 0450 07/09/17 0450 Objective Remarks GENERAL: NAD, A&Ox3 HEAD: Normocephalic. NECK: Supple, trachea midline. No lymphadenopathy. EYES: No scleral icterus. No injection or drainage. CARDIOVASCULAR: Regular rate and rhythm without murmurs, gallops, or rubs. RESPIRATORY: Breath sounds equal bilaterally. No accessory muscle use. GASTROINTESTINAL: Abdomen soft, non-tender, nondistended. MUSCULOSKELETAL: No cyanosis, or edema. SKIN: Warm and dry. NEURO: No focal neurological deficitis. A/P Problem List: (1) Diarrhea ICD Code: R19.7 - Diarrhea Status: Acute (2) Sepsis ICD Code: A41.9 - Sepsis, unspecified organism Status: Acute Assessment and Plan 62-year-old male admitted secondary to diarrhea, acute kidney injury, and sepsis Sepsis Resolved Follow cultures Diarrhea C. difficile colitis She recurrent C. difficile Follow blood cultures IV vancomycin By mouth vancomycin Follow cultures GI following Monitor symptoms Acute kidney injury Improving Avoid nephrotoxins IV hydration Follow renal function This is likely dehydration related Arthritis. Anxiety disorder. History of diverticulitis. Reflux disease. 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 Seizure disorder. Continue baseline treatments No exacerbations are seen of these conditions DVT prophylaxis SCDs as patient is at high bleed risk Damion Waters MD Jul 09, 2017 16:22
[2017-07-09] MEDS: cloNIDine HCL 0.1 MG TAB PO PRN (18:10)
[2017-07-09] MEDS: ALPRAZolam 0.5 MG TAB PO PRN (18:10)
[2017-07-09] MEDS: DICYCLOMINE HCL 10 MG CAP PO SCH ×2 (18:10→20:09)
--- NOTE | 2017-07-09 18:17 | PD.CONS ---
HPI History of Present Illness This is a 62 year old admitted yesterday to the hospital with history of worsening diarrhea for last few days associated with severe crampy abdominal pain and gas of abdominal bloating. He complained of nausea or denied vomiting. There is no history of hematemesis melena hematochezia jaundice fevers chills heartburn dysphagia anorexia or weight loss. Workup in the hospital showed stools were positive for his C. difficile toxin B. This is his seventh episode of C. difficile enterocolitis. He reports no significant response to p.o. vancomycin. [facility] Past Medical History Arthritis. Anxiety disorder. Previous history of C-difficile. History of diverticulitis. Reflux disease. Hypertension. 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 Seizure disorder. Past Surgical History Previous EGD. Colonoscopies. Ankle surgery. Neck surgery. Coded Allergies: codeine (Verified Allergy, Severe, RASH, 07/08/17) ibuprofen (Verified Allergy, Severe, Swelling, 07/08/17) of eyes levofloxacin (Verified Allergy, Severe, ACHILLES TENDON PROBLEM, 07/08/17) metronidazole (Verified Allergy, Severe, Nausea/Vomiting, 07/08/17) Medications Medications as per nursing MAR Family History Denies any significant family medical history. Social History Previous history of alcohol use but quit in November. Social history also includes marijuana use but no tobacco. Review of Systems Gastrointestinal: COMPLAINS OF: Abdominal pain, Diarrhea, Nausea, DENIES: Black stools, Bloody stools, Constipation, Vomiting, Difficulty Swallowing, Anorexia, Odynophagia, Swelling of Abdomen, Heartburn, Hematemesis GI Exam Vitals I&O Vital Signs Date Time Temp Pulse Resp B/P (MAP) Pulse Ox O2 Delivery O2 Flow Rate FiO2 07/09/17 16:00 98.1 84 20 180/86 (117) 99 07/09/17 12:00 97.2 88 20 124/85 (98) 98 07/09/17 08:06 91 07/09/17 08:00 96.7 85 20 151/84 (106) 98 07/09/17 04:00 98.4 84 16 137/81 (99) 98 07/09/17 00:00 97.9 94 18 119/83 (95) 98 07/08/17 21:30 97.7 93 20 142/82 (102) 99 07/08/17 21:23 98.2 98 14 137/82 (100) 98 07/08/17 18:46 112 16 153/96 (115) 98 Room Air I/O 07/08/17 07/08/17 07/08/17 07/09/17 07/09/17 07/09/17 07:00 15:00 23:00 07:00 15:00 23:00 Intake Total 2250 ml 1280 ml 480 ml Output Total 0 ml Balance 2250 ml 1280 ml 480 ml Intake Oral 280 ml 480 ml IV Total 2250 ml 1000 ml Output Stool Total 0 ml # Voids 1 2 Laboratory Test 07/09/17 04:50 White Blood Count 16.2 TH/MM3 Red Blood Count 3.78 MIL/MM3 Hemoglobin 10.6 GM/DL Hematocrit 32.1 % Mean Corpuscular Volume 85.0 FL Mean Corpuscular Hemoglobin 28.1 PG Mean Corpuscular Hemoglobin Concent 33.0 % Red Cell Distribution Width 16.1 % Platelet Count 281 TH/MM3 Mean Platelet Volume 8.8 FL Neutrophils (%) (Auto) 74.6 % Lymphocytes (%) (Auto) 15.1 % Monocytes (%) (Auto) 9.5 % Eosinophils (%) (Auto) 0.5 % Basophils (%) (Auto) 0.3 % Neutrophils # (Auto) 12.2 TH/MM3 Lymphocytes # (Auto) 2.4 TH/MM3 Monocytes # (Auto) 1.5 TH/MM3 Eosinophils # (Auto) 0.1 TH/MM3 Basophils # (Auto) 0.0 TH/MM3 CBC Comment DIFF FINAL Differential Comment Blood Urea Nitrogen 28 MG/DL Creatinine 2.00 MG/DL Random Glucose 79 MG/DL Total Protein 7.2 GM/DL Albumin 3.5 GM/DL Calcium Level 7.7 MG/DL Alkaline Phosphatase 77 U/L Aspartate Amino Transf (AST/SGOT) 12 U/L Alanine Aminotransferase (ALT/SGPT) 12 U/L Total Bilirubin 0.2 MG/DL Sodium Level 135 MEQ/L Potassium Level 3.4 MEQ/L Chloride Level 104 MEQ/L Carbon Dioxide Level 20.0 MEQ/L Anion Gap 11 MEQ/L Estimat Glomerular Filtration Rate 34 ML/MIN Random Vancomycin Level 13.5 COMMENT Date/Time Source Procedure Growth Status 07/08/17 19:30 Blood Peripheral Aerobic Blood Culture - Preliminary NO GROWTH IN 1 DAY Resulted 07/08/17 19:30 Blood Peripheral Anaerobic Blood Culture - Preliminary NO GROWTH IN 1 DAY Resulted Physical Examination HEENT: Pupils round and reactive to light; normocephalic; atraumatic; no jaundice. Throat is clear. NECK: Neck is supple, no JVD, no lymphadenopathy. CHEST: Chest is clear to auscultation and percussion. CARDIAC: Regular rate and rhythm with no murmur gallop or rubs. ABDOMEN: Soft, nondistended, nontender; no hepatosplenomegaly; bowel sounds are present in all four quadrants. EXTREMITIES: No clubbing, cyanosis, or edema. SKIN: Normal; no rash; no jaundice. SUGAR GRINDER: No focal deficits; alert and oriented times three. Assessment and Plan Assessment: (1) C. difficile colitis ICD Codes: A04.7 - Enterocolitis due to Clostridium difficile Status: Acute Plan 1. Recurrent episode of C. difficile colitis 2. Present episode severe in intensity in view of elevated WBC, serum creatinine and mild ileus seen on CT scan 3. Continue p.o. vancomycin 500 mg every 6 hours 4. Continue IV Flagyl 500 mg every 8 hours 5. Patient recommended IV infusion of Zinplava,. And the dose of 10 mg/kg body weight is 1 time infusion 6. Adding p.o. Questran 5 g every 6 hours would also help patient symptoms Bobby Zhao MD Jul 09, 2017 18:17
[2017-07-10 00:19] VITALS: BP 138/69; PULSE 80; RESP 16; TEMP 98.8; O2SAT 98
[2017-07-10] MEDS: MORPHINE SULFATE 2 MG/ML INJ IV PUSH PRN ×6 (00:22→21:42)
[2017-07-10] MEDS: SODIUM CHLOR 0.9% 1000 ML INJ 1,000 ML IV SCH ×3 (00:44→21:32)
[2017-07-10] MEDS: CHOLESTYRAMINE 4 GM PACKET PO SCH ×4 (05:09→22:50)
[2017-07-10] MEDS: ONDANSETRON HCL 4 MG/2 ML VIAL IVP PRN ×3 (05:09→17:08)
[2017-07-10 08:00] VITALS: BP 171/101; PULSE 73; RESP 18; TEMP 97.9; O2SAT 97
[2017-07-10] MEDS: amLODIPine BESYLATE 5 MG TAB PO SCH (08:32)
[2017-07-10] MEDS: LISINOPRIL 20 MG TAB PO SCH (08:32)
[2017-07-10] MEDS: ALPRAZolam 0.5 MG TAB PO PRN (08:32)
[2017-07-10] MEDS: DICYCLOMINE HCL 10 MG CAP PO SCH ×4 (08:32→21:32)
[2017-07-10] MEDS: VANCOMYCIN 25 MG/ML SOLN 100 ML BOTTLE PO SCH ×4 (08:33→21:33)
[2017-07-10] MEDS: SODIUM CHLORIDE 0.9% FLUSH 10 ML FLUSH IV FLUSH SCH ×2 (08:33→21:32)
[2017-07-10 09:23] LABS: AUTOMATED NEUTROPHIL # 6.8 TH/MM3 (1.8-7.7); BASOPHIL # 0.2 TH/MM3 (0-0.2); BASOPHIL % 1.6 % (0.0-2.0); EOSINOPHIL # 0.2 TH/MM3 (0-0.4); EOSINOPHIL % 1.9 % (0.0-4.0); HEMATOCRIT 32.3 % (39.0-51.0); HEMOGLOBIN 10.1 GM/DL (13.0-17.0); LYMPH % 18.2 % (9.0-44.0); LYMPHOCYTE # 1.8 TH/MM3 (1.0-4.8); MEAN CORPUSCULAR HEMOGLOBIN 26.9 PG (27.0-34.0); MEAN CORPUSCULAR HGB CONC 31.2 % (32.0-36.0); MEAN PLATELET VOLUME 8.1 FL (7.0-11.0); MONO % 9.5 % (0.0-8.0); NEUT % 68.8 % (16.0-70.0); PLATELET COUNT 297 TH/MM3 (150-450); RED BLOOD COUNT 3.75 MIL/MM3 (4.50-5.90); RED CELL DISTRIBUTION WIDTH 16.1 % (11.6-17.2)
[2017-07-10 10:00] LABS: CALCIUM 7.9 MG/DL (8.5-10.1)
[2017-07-10 10:01] LABS: BICARBONATE 21.2 MEQ/L (21.0-32.0); CHLORIDE 108 MEQ/L (98-107); GLUCOSE,RANDOM 103 MG/DL (74-106); SODIUM (NA) 138 MEQ/L (136-145)
[2017-07-10 10:13] LABS: ALKALINE PHOSPHATASE 63 U/L (45-117); ALT (GPT) 11 U/L (12-78); AST (GOT) 13 U/L (15-37); BLOOD UREA NITROGEN 13 MG/DL (7-18); GLOMERULAR FILTRATION RATE 67 ML/MIN (>89); TOTAL BILIRUBIN ADULT 0.2 MG/DL (0.2-1.0); TOTAL PROTEIN 6.3 GM/DL (6.4-8.2)
[2017-07-10 12:00] VITALS: BP 159/92; PULSE 81; RESP 18; TEMP 97.3; O2SAT 99
[2017-07-10 14:00] VITALS: BP 159/92; PULSE 81; RESP 18; TEMP 97.3; O2SAT 99
--- NOTE | 2017-07-10 15:12 | HHI.PR ---
Subjective Remarks Diarrhea is improved today. 20 episodes are more of diarrhea yesterday. Only one episode thus far today. Objective Vital Signs Date Time Temp Pulse Resp B/P (MAP) Pulse Ox O2 Delivery O2 Flow Rate FiO2 07/10/17 12:00 97.3 81 18 159/92 (114) 99 07/10/17 08:00 97.9 73 18 171/101 (124) 97 07/10/17 00:19 98.8 80 16 138/69 (92) 98 07/09/17 20:25 98.9 86 18 142/82 (102) 97 07/09/17 16:34 122 07/09/17 16:00 98.1 84 20 180/86 (117) 99 I/O 07/09/17 07/09/17 07/09/17 07/10/17 07/10/17 07/10/17 07:00 15:00 23:00 07:00 15:00 23:00 Intake Total 1280 ml 480 ml 1000 ml 1920 ml Output Total 0 ml 750 ml Balance 1280 ml 480 ml 1000 ml 1170 ml Intake Oral 280 ml 480 ml 1920 ml IV Total 1000 ml 1000 ml Output Urine Total 750 ml Stool Total 0 ml # Voids 1 2 5 # Bowel Movements 1 Result Diagram: 07/10/17 0910 07/10/17 0910 Objective Remarks GENERAL: NAD, A&Ox3 HEAD: Normocephalic. NECK: Supple, trachea midline. No lymphadenopathy. EYES: No scleral icterus. No injection or drainage. CARDIOVASCULAR: Regular rate and rhythm without murmurs, gallops, or rubs. RESPIRATORY: Breath sounds equal bilaterally. No accessory muscle use. GASTROINTESTINAL: Abdomen soft, non-tender, nondistended. MUSCULOSKELETAL: No cyanosis, or edema. SKIN: Warm and dry. NEURO: No focal neurological deficitis. A/P Problem List: (1) Diarrhea ICD Code: R19.7 - Diarrhea Status: Acute (2) Sepsis ICD Code: A41.9 - Sepsis, unspecified organism Status: Acute Assessment and Plan 62-year-old male admitted secondary to diarrhea, acute kidney injury, and sepsis Diarrhea improving today. No new complaints from the patient. No fever. Labs reviewed. Downward trend in white blood cell count. Continue to monitor labs. Labs ordered for further monitoring. Sepsis Resolved Follow cultures Diarrhea C. difficile colitis She recurrent C. difficile Follow blood cultures IV vancomycin By mouth vancomycin Follow cultures GI following Monitor symptoms Plan for Zinplava on Wednesday Acute kidney injury Improving Avoid nephrotoxins IV hydration Follow renal function This is likely dehydration related Arthritis. Anxiety disorder. History of diverticulitis. Reflux disease. 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 Seizure disorder. Continue baseline treatments No exacerbations are seen of these conditions DVT prophylaxis SCDs as patient is at high bleed risk Damion Waters MD Jul 10, 2017 15:12
[2017-07-10 20:00] VITALS: BP 170/100; PULSE 76; RESP 18; TEMP 98.8; O2SAT 100
[2017-07-11] VITALS (7 sets, daily range): BP systolic 113–181; BP diastolic 81–100; PULSE 68–93; RESP 18–20; TEMP 97.1–98.9; O2SAT 95–100
[2017-07-11] MEDS ORDERED: PHARMACY ORDERED LAB ONE (01:45)
[2017-07-11] MEDS: ONDANSETRON HCL 4 MG/2 ML VIAL IVP PRN ×4 (01:59→23:56)
[2017-07-11] MEDS: cloNIDine HCL 0.1 MG TAB PO PRN (02:01)
[2017-07-11] MEDS: MORPHINE SULFATE 2 MG/ML INJ IV PUSH PRN ×7 (02:01→23:53)
[2017-07-11] MEDS: ALPRAZolam 0.5 MG TAB PO PRN ×3 (02:04→23:57)
[2017-07-11] MEDS: CHOLESTYRAMINE 4 GM PACKET PO SCH ×4 (04:55→23:52)
[2017-07-11] MEDS: SODIUM CHLOR 0.9% 1000 ML INJ 1,000 ML IV SCH ×2 (06:44→13:27)
[2017-07-11 06:59] LABS: AUTOMATED NEUTROPHIL # 6.6 TH/MM3 (1.8-7.7); BASOPHIL # 0.1 TH/MM3 (0-0.2); BASOPHIL % 1.1 % (0.0-2.0); EOSINOPHIL # 0.2 TH/MM3 (0-0.4); HEMATOCRIT 29.9 % (39.0-51.0); HEMOGLOBIN 9.4 GM/DL (13.0-17.0); LYMPHOCYTE # 2.3 TH/MM3 (1.0-4.8); MEAN CELL VOLUME 85.6 FL (80.0-100.0); MEAN CORPUSCULAR HEMOGLOBIN 27.1 PG (27.0-34.0); MEAN CORPUSCULAR HGB CONC 31.6 % (32.0-36.0); MEAN PLATELET VOLUME 8.8 FL (7.0-11.0); MONO % 13.1 % (0.0-8.0); MONOCYTE # 1.4 TH/MM3 (0-0.9); NEUT % 61.8 % (16.0-70.0); PLATELET COUNT 298 TH/MM3 (150-450); RED BLOOD COUNT 3.49 MIL/MM3 (4.50-5.90); RED CELL DISTRIBUTION WIDTH 15.8 % (11.6-17.2); WHITE BLOOD COUNT 10.6 TH/MM3 (4.0-11.0)
[2017-07-11 07:35] LABS: CHLORIDE 109 MEQ/L (98-107); SODIUM (NA) 137 MEQ/L (136-145)
[2017-07-11 07:38] LABS: ALBUMIN 2.9 GM/DL (3.4-5.0); BICARBONATE 20.4 MEQ/L (21.0-32.0); BLOOD UREA NITROGEN 8 MG/DL (7-18); CALCIUM 7.7 MG/DL (8.5-10.1); GLUCOSE,RANDOM 86 MG/DL (74-106)
[2017-07-11 07:41] LABS: ALT (GPT) 9 U/L (12-78); AST (GOT) 10 U/L (15-37)
[2017-07-11 07:42] LABS: CREATININE 0.96 MG/DL (0.60-1.30); GLOMERULAR FILTRATION RATE 79 ML/MIN (>89)
[2017-07-11 07:43] LABS: TOTAL BILIRUBIN ADULT 0.1 MG/DL (0.2-1.0); TOTAL PROTEIN 6.2 GM/DL (6.4-8.2)
[2017-07-11 07:44] LABS: ALKALINE PHOSPHATASE 57 U/L (45-117)
[2017-07-11] MEDS: SODIUM CHLORIDE 0.9% FLUSH 10 ML FLUSH IV FLUSH SCH ×2 (09:00→20:34)
[2017-07-11] MEDS: amLODIPine BESYLATE 5 MG TAB PO SCH (09:19)
[2017-07-11] MEDS: LISINOPRIL 20 MG TAB PO SCH (09:19)
[2017-07-11] MEDS: VANCOMYCIN 25 MG/ML SOLN 100 ML BOTTLE PO SCH ×4 (09:19→20:35)
[2017-07-11] MEDS: DICYCLOMINE HCL 10 MG CAP PO SCH ×4 (09:19→20:34)
--- NOTE | 2017-07-11 10:49 | HHI.PR ---
Subjective Remarks Diarrhea returned overnight. Patient reports about 8-10 episodes overnight. No new complaints today. Zibrendalava will be available on 07/13/17. Objective Vital Signs Date Time Temp Pulse Resp B/P (MAP) Pulse Ox O2 Delivery O2 Flow Rate FiO2 07/11/17 08:00 97.1 92 18 113/81 (92) 99 07/11/17 04:00 98.5 78 18 135/93 (107) 100 07/11/17 00:00 98.9 90 18 162/100 (120) 100 07/10/17 20:00 98.8 76 18 170/100 (123) 100 07/10/17 12:00 97.3 81 18 159/92 (114) 99 I/O 07/10/17 07/10/17 07/10/17 07/11/17 07/11/17 07/11/17 06:59 14:59 22:59 06:59 14:59 22:59 Intake Total 1920 ml 650 ml 788 ml 2400 ml Output Total 750 ml Balance 1170 ml 650 ml 788 ml 2400 ml Intake Oral 1920 ml 650 ml IV Total 788 ml 2400 ml Output Urine Total 750 ml # Voids 5 4 1 4 # Bowel Movements 1 18 Result Diagram: 07/11/17 0540 07/11/17 0540 Objective Remarks GENERAL: NAD, A&Ox3 HEAD: Normocephalic. NECK: Supple, trachea midline. No lymphadenopathy. EYES: No scleral icterus. No injection or drainage. CARDIOVASCULAR: Regular rate and rhythm without murmurs, gallops, or rubs. RESPIRATORY: Breath sounds equal bilaterally. No accessory muscle use. GASTROINTESTINAL: Abdomen soft, non-tender, nondistended. MUSCULOSKELETAL: No cyanosis, or edema. SKIN: Warm and dry. NEURO: No focal neurological deficitis. A/P Problem List: (1) Diarrhea ICD Code: R19.7 - Diarrhea Status: Acute (2) Sepsis ICD Code: A41.9 - Sepsis, unspecified organism Status: Acute Assessment and Plan 62-year-old male admitted secondary to diarrhea, acute kidney injury, and sepsis Diarrhea present overnight. Labs reviewed. Electrolytes are staying stable. Continue to monitor labs. Labs ordered for further monitoring. Blood cultures negative at 48 hours. Sepsis Resolved Follow blood cultures Diarrhea C. difficile colitis She recurrent C. difficile Follow blood cultures IV Flagyl By mouth vancomycin Follow cultures GI following Monitor symptoms Plan for Zinplava on Wednesday Acute kidney injury Improving Avoid nephrotoxins IV hydration Follow renal function This is likely dehydration related Arthritis. Anxiety disorder. History of diverticulitis. Reflux disease. 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 Seizure disorder. Continue baseline treatments No exacerbations are seen of these conditions DVT prophylaxis SCDs as patient is at high bleed risk Damion Waters MD Jul 11, 2017 10:49
[2017-07-11] MEDS: guaiFENesin SOLUTION 200 MG/10 ML CUP PO PRN (22:06)
[2017-07-12] MEDS: SODIUM CHLOR 0.9% 1000 ML INJ 1,000 ML IV SCH ×3 (04:55→23:06)
[2017-07-12] MEDS: CHOLESTYRAMINE 4 GM PACKET PO SCH ×5 (04:57→23:06)
[2017-07-12] MEDS: MORPHINE SULFATE 2 MG/ML INJ IV PUSH PRN ×5 (05:00→20:09)
[2017-07-12 05:04] VITALS: BP 155/88; PULSE 72; RESP 20; TEMP 97.6; O2SAT 100
[2017-07-12 07:16] LABS: HEMATOCRIT 31.9 % (39.0-51.0); HEMOGLOBIN 10.1 GM/DL (13.0-17.0); MEAN CELL VOLUME 85.8 FL (80.0-100.0); MEAN CORPUSCULAR HEMOGLOBIN 27.1 PG (27.0-34.0); MEAN CORPUSCULAR HGB CONC 31.6 % (32.0-36.0); MEAN PLATELET VOLUME 9.3 FL (7.0-11.0); PLATELET COUNT 330 TH/MM3 (150-450); RED BLOOD COUNT 3.72 MIL/MM3 (4.50-5.90); WHITE BLOOD COUNT 10.1 TH/MM3 (4.0-11.0)
[2017-07-12 07:23] LABS: BICARBONATE 20.2 MEQ/L (21.0-32.0); CALCIUM 7.9 MG/DL (8.5-10.1)
[2017-07-12 07:26] LABS: CREATININE 0.92 MG/DL (0.60-1.30)
[2017-07-12 08:00] VITALS: BP 178/101; PULSE 76; RESP 14; TEMP 97.4; O2SAT 99
[2017-07-12] MEDS: SODIUM CHLORIDE 0.9% FLUSH 10 ML FLUSH IV FLUSH SCH ×2 (09:00→20:06)
[2017-07-12] MEDS: VANCOMYCIN 25 MG/ML SOLN 100 ML BOTTLE PO SCH ×4 (09:08→20:06)
[2017-07-12] MEDS: amLODIPine BESYLATE 5 MG TAB PO SCH (09:08)
[2017-07-12] MEDS: LISINOPRIL 20 MG TAB PO SCH (09:08)
[2017-07-12] MEDS: DICYCLOMINE HCL 10 MG CAP PO SCH ×4 (09:08→20:05)
[2017-07-12] MEDS: ONDANSETRON HCL 4 MG/2 ML VIAL IVP PRN ×2 (09:08→14:54)
--- NOTE | 2017-07-12 11:27 | HHI.PR ---
Subjective Remarks Patient seen in follow up for C diff diarrhea Refused the Questran and only drinking fluids without eating Patient still therefore with diarrhea Objective Vitals Vital Signs Date Time Temp Pulse Resp B/P (MAP) Pulse Ox O2 Delivery O2 Flow Rate FiO2 07/12/17 09:13 0 07/12/17 08:00 97.4 76 14 178/101 (126) 99 07/12/17 05:04 97.6 72 20 155/88 (110) 100 07/12/17 04:16 07/11/17 23:51 98.7 68 20 181/100 (127) 95 07/11/17 22:03 98.0 93 18 157/89 (111) 99 07/11/17 16:00 98.2 86 18 151/93 (112) 100 07/11/17 12:00 97.4 73 18 152/87 (108) 100 I/O 07/11/17 07/11/17 07/11/17 07/12/17 07/12/17 07/12/17 07:00 15:00 23:00 07:00 15:00 23:00 Intake Total 2400 ml 750 ml 888 ml 1000 ml Balance 2400 ml 750 ml 888 ml 1000 ml Intake Oral 750 ml IV Total 2400 ml 888 ml 1000 ml # Voids 4 8 7 # Bowel Movements 18 0 8 Result Diagram: 07/12/17 0530 07/12/17 0530 Imaging Last Impressions Abdomen/Pelvis CT 07/08/17 0000 Signed Impressions: Service Date/Time: June 17:59 - CONCLUSION: 1. No acute findings. Residual contrast in bladder from injection performed yesterday. Left hip replacement. Diffuse mild ileus similar to prior examination. No evidence for obstruction. Colonic diverticulosis. Efren Ca MD Objective Remarks GENERAL: This is a well-nourished, well-developed patient, in no apparent distress. CARDIOVASCULAR: Regular rate and rhythm without murmurs, gallops, or rubs. RESPIRATORY: Clear to auscultation. Breath sounds equal bilaterally. No wheezes , rales, or rhonchi. GASTROINTESTINAL: Abdomen soft, non-tender, nondistended. Normal active bowel sounds MUSCULOSKELETAL: Extremities without clubbing, cyanosis, or edema. NEURO: Alert & Oriented x4 to person, place, time, situation. Moves all ext x4 A/P Problem List: (1) Diarrhea ICD Code: R19.7 - Diarrhea Status: Acute Plan: due to cdiff Continue with vancomycin and Flagyl orally, awaiting ZINPLEVA which per pharmacy will be available tomorrow (2) Acute kidney injury ICD Code: N17.9 - Acute kidney failure, unspecified Status: Resolved Plan: resolved (3) Sepsis ICD Code: A41.9 - Sepsis, unspecified organism Status: Acute Plan: Secondary to CDiff Improved Patient with initial leukocytosis and tachycardia which are improved Discharge Planning Likely discharge in a.m. after improvement Andie Barraza MD Jul 12, 2017 11:27
[2017-07-12 12:29] VITALS: BP 131/84; PULSE 75; RESP 14; TEMP 96.7; O2SAT 99
[2017-07-12 15:30] VITALS: BP 162/97; PULSE 80; RESP 20; TEMP 97.2; O2SAT 100
[2017-07-12] MEDS: cloNIDine HCL 0.1 MG TAB PO PRN ×2 (17:43)
[2017-07-12 20:00] VITALS: BP 177/84; PULSE 58; RESP 20; TEMP 98; O2SAT 98
[2017-07-12] MEDS: ALPRAZolam 0.5 MG TAB PO PRN (20:10)
[2017-07-12] MEDS ORDERED: VANCOMYCIN 25 MG/ML SOLN 100 ML BOTTLE PO SCH (21:00)
[2017-07-13] VITALS: BP 159/70; PULSE 62; RESP 20; TEMP 98; O2SAT 98
[2017-07-13] MEDS ORDERED: ACETAMINOPHEN 325 MG TAB PO PRN (00:45)
[2017-07-13] MEDS ORDERED: ALPRAZolam 0.5 MG TAB PO ONE (04:45)
[2017-07-13] MEDS: CHOLESTYRAMINE 4 GM PACKET PO SCH ×3 (04:54→17:53)
[2017-07-13 08:00] VITALS: BP 143/96; PULSE 84; RESP 20; TEMP 97.9; O2SAT 95
[2017-07-13] MEDS: ONDANSETRON HCL 4 MG/2 ML VIAL IVP PRN ×3 (08:35→20:56)
[2017-07-13] MEDS: amLODIPine BESYLATE 5 MG TAB PO SCH (08:36)
[2017-07-13] MEDS: DICYCLOMINE HCL 10 MG CAP PO SCH ×4 (08:36→20:56)
[2017-07-13] MEDS: LISINOPRIL 20 MG TAB PO SCH (08:36)
[2017-07-13] MEDS: MORPHINE SULFATE 2 MG/ML INJ IV PUSH PRN ×5 (08:37→20:56)
[2017-07-13] MEDS: VANCOMYCIN 25 MG/ML SOLN 100 ML BOTTLE PO SCH ×4 (08:38→20:58)
[2017-07-13] MEDS: SODIUM CHLORIDE 0.9% FLUSH 10 ML FLUSH IV FLUSH SCH ×2 (09:00→20:56)
--- NOTE | 2017-07-13 11:09 | HHI.PR ---
Subjective Remarks Patient seen and evaluated today in follow-up for diarrhea. Patient feels poorly and is complaining of fatigue. Objective Vitals Vital Signs Date Time Temp Pulse Resp B/P (MAP) Pulse Ox O2 Delivery O2 Flow Rate FiO2 07/13/17 08:00 97.9 84 20 143/96 (112) 95 07/13/17 00:00 98.0 62 20 159/70 (99) 98 07/12/17 20:00 98.0 58 20 177/84 (115) 98 07/12/17 15:30 97.2 80 20 162/97 (118) 100 07/12/17 14:59 20 07/12/17 14:59 20 07/12/17 14:59 20 07/12/17 12:29 96.7 75 14 131/84 (100) 99 I/O 07/12/17 07/12/17 07/12/17 07/13/17 07/13/17 07/13/17 07:00 15:00 23:00 07:00 15:00 23:00 Intake Total 1000 ml 360 ml Balance 1000 ml 360 ml Intake Oral 360 ml IV Total 1000 ml # Voids 7 12 # Bowel Movements 8 7 Result Diagram: 07/12/17 0530 07/12/17 0530 Objective Remarks GENERAL: This is a well-nourished, well-developed patient, in no apparent distress. CARDIOVASCULAR: Regular rate and rhythm without murmurs, gallops, or rubs. RESPIRATORY: Clear to auscultation. Breath sounds equal bilaterally. No wheezes , rales, or rhonchi. GASTROINTESTINAL: Abdomen soft, non-tender, nondistended. Normal active bowel sounds MUSCULOSKELETAL: Extremities without clubbing, cyanosis, or edema. NEURO: Alert & Oriented x4 to person, place, time, situation. Moves all ext x4 A/P Problem List: (1) Diarrhea ICD Code: R19.7 - Diarrhea Status: Acute Plan: due to cdiff Continue with vancomycin and Flagyl orally, awaiting ZINPLEVA which per pharmacy will be available today Still with quite a bit of diarrhea and unable to keep oral down (2) Acute kidney injury ICD Code: N17.9 - Acute kidney failure, unspecified Status: Resolved Plan: resolved (3) Sepsis ICD Code: A41.9 - Sepsis, unspecified organism Status: Acute Plan: Secondary to CDiff Improved Patient with initial leukocytosis and tachycardia which are improved Discharge Planning Likely discharge pending clinical improvement Andie Barraza MD Jul 13, 2017 11:09
[2017-07-13 12:00] VITALS: BP 142/94; PULSE 91; RESP 20; TEMP 97.9; O2SAT 99
[2017-07-13] MEDS: SODIUM CHLOR 0.9% 1000 ML INJ 1,000 ML IV SCH ×3 (12:22→20:57)
--- NOTE | 2017-07-13 15:51 | HHI.GIFU ---
Subjective Remarks Resting in the bed, conversational Diarrhea stools continue, mild gradual decrease today but still greater than 10 Afebrile Mild tenderness lower abdomen (Nohemi Ramos) Objective Vitals I&O Vital Signs Date Time Temp Pulse Resp B/P (MAP) Pulse Ox O2 Delivery O2 Flow Rate FiO2 07/13/17 12:27 20 07/13/17 12:00 97.9 91 20 142/94 (110) 99 07/13/17 08:00 97.9 84 20 143/96 (112) 95 07/13/17 00:00 98.0 62 20 159/70 (99) 98 07/12/17 20:00 98.0 58 20 177/84 (115) 98 I/O 07/12/17 07/12/17 07/12/17 07/13/17 07/13/17 07/13/17 07:00 15:00 23:00 07:00 15:00 23:00 Intake Total 1000 ml 360 ml 0 ml Balance 1000 ml 360 ml 0 ml Intake Oral 360 ml 0 ml IV Total 1000 ml # Voids 7 12 3 # Bowel Movements 8 7 10 Laboratory Date/Time Source Procedure Growth Status 07/08/17 19:30 Blood Peripheral Aerobic Blood Culture - Final NO GROWTH IN 5 DAYS Complete 07/08/17 19:30 Blood Peripheral Anaerobic Blood Culture - Final NO GROWTH IN 5 DAYS Complete Imaging Last Impressions Abdomen/Pelvis CT 07/08/17 0000 Signed Impressions: Service Date/Time: June 17:59 - CONCLUSION: 1. No acute findings. Residual contrast in bladder from injection performed yesterday. Left hip replacement. Diffuse mild ileus similar to prior examination. No evidence for obstruction. Colonic diverticulosis. Efren Ca MD Physical Exam HEENT: Pupils round and reactive to light; normocephalic; atraumatic; no jaundice. Throat is clear. NECK: Neck is supple, no JVD, CHEST: Chest is clear to anteriorly and posteriorly CARDIAC: Regular rate and rhythm ABDOMEN: Round, Soft, mild tympany and distention, lower abdominal tenderness left and right , mid to light palpation no hepatosplenomegaly; bowel sounds are soft EXTREMITIES: No clubbing, cyanosis, or edema. SKIN: Normal; no rash; no jaundice. 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 (Nohemi Ramos) Assessment and Plan Assessment: (1) C. difficile colitis ICD Codes: A04.7 - Enterocolitis due to Clostridium difficile Status: Acute Plan 1. Recurrent episode of C. difficile colitis 2. Present episode severe in intensity in view of elevated WBC, serum creatinine and mild ileus seen on CT scan 3. Continue p.o. vancomycin 500 mg every 6 hours 4. Continue IV Flagyl 500 mg every 8 hours 5. Patient recommended IV infusion of Zinplava,. And the dose of 10 mg/kg body weight is 1 time infusion 6. Adding p.o. Questran 5 g every 6 hours would also help patient symptoms 07/13/17, patient still showing symptoms and positive for C. difficile, William Zamorano, Difficied started. Patient may be a candidate for C. difficile bacteria transplant study, we will evaluate, patient is willing. Plan Diet as tolerated per attending Monitor intake and output with special attention to diarrhea Monitor labs Continue Questran Vancomycin by mouth Further recommendations based on patient's response to treatment Patient was seen by myself and Dr. Corona, note written on his behalf (Nohemi Ramos) Plan Patient was seen and examined, agree with the note, still having significant diarrhea, may be partial or no respond to vancomycin, we will add Dificid 200 mg twice daily for 10 days, patient also interested in a research bacterium microbiota transplant we will see in the event the patient meets criteria, we will arrange for that as an outpatient (Harrison Corona MD) Nohemi Ramos Jul 13, 2017 15:51 Harrison Corona MD Jul 13, 2017 23:34
[2017-07-13 20:00] VITALS: BP 182/86; PULSE 77; RESP 20; TEMP 98; O2SAT 99
[2017-07-13] MEDS: cloNIDine HCL 0.1 MG TAB PO PRN (20:03)
[2017-07-13] MEDS: ALPRAZolam 0.5 MG TAB PO PRN (20:56)
[2017-07-13] MEDS: FIDAXOMICIN 200 MG TAB PO SCH (20:56)
[2017-07-14 00:21] VITALS: BP 140/76; PULSE 80; RESP 20; TEMP 98.3; O2SAT 98
[2017-07-14] MEDS: ONDANSETRON HCL 4 MG/2 ML VIAL IVP PRN (04:06)
[2017-07-14] MEDS: MORPHINE SULFATE 2 MG/ML INJ IV PUSH PRN ×2 (04:06→09:04)
[2017-07-14] MEDS: CHOLESTYRAMINE 4 GM PACKET PO SCH ×5 (05:57→23:04)
[2017-07-14 07:02] LABS: AUTOMATED NEUTROPHIL # 7.8 TH/MM3 (1.8-7.7); BASOPHIL # 0.1 TH/MM3 (0-0.2); BASOPHIL % 0.5 % (0.0-2.0); EOSINOPHIL # 0.1 TH/MM3 (0-0.4); EOSINOPHIL % 0.7 % (0.0-4.0); HEMATOCRIT 32.9 % (39.0-51.0); HEMOGLOBIN 10.5 GM/DL (13.0-17.0); LYMPH % 13.5 % (9.0-44.0); LYMPHOCYTE # 1.4 TH/MM3 (1.0-4.8); MEAN CELL VOLUME 85.5 FL (80.0-100.0); MEAN CORPUSCULAR HEMOGLOBIN 27.2 PG (27.0-34.0); MEAN CORPUSCULAR HGB CONC 31.8 % (32.0-36.0); MEAN PLATELET VOLUME 9.2 FL (7.0-11.0); MONOCYTE # 1.2 TH/MM3 (0-0.9); NEUT % 74.3 % (16.0-70.0); PLATELET COUNT 380 TH/MM3 (150-450); RED BLOOD COUNT 3.85 MIL/MM3 (4.50-5.90); RED CELL DISTRIBUTION WIDTH 15.6 % (11.6-17.2); WHITE BLOOD COUNT 10.6 TH/MM3 (4.0-11.0)
[2017-07-14 07:15] LABS: BICARBONATE 15.7 MEQ/L (21.0-32.0); CALCIUM 8.3 MG/DL (8.5-10.1)
[2017-07-14 07:18] LABS: CREATININE 1.1 MG/DL (0.60-1.30)
[2017-07-14 07:56] VITALS: BP 149/92; PULSE 86; RESP 20; TEMP 98.2; O2SAT 100
[2017-07-14] MEDS: DICYCLOMINE HCL 10 MG CAP PO SCH ×4 (08:54→21:54)
[2017-07-14] MEDS: LISINOPRIL 20 MG TAB PO SCH (08:54)
[2017-07-14] MEDS: amLODIPine BESYLATE 5 MG TAB PO SCH (08:55)
[2017-07-14] MEDS: SODIUM CHLORIDE 0.9% FLUSH 10 ML FLUSH IV FLUSH SCH ×2 (08:55→21:53)
[2017-07-14] MEDS: FIDAXOMICIN 200 MG TAB PO SCH ×2 (08:55→21:54)
[2017-07-14] MEDS: VANCOMYCIN 25 MG/ML SOLN 100 ML BOTTLE PO SCH ×4 (08:58→22:31)
[2017-07-14] MEDS: ALPRAZolam 0.5 MG TAB PO PRN ×2 (09:02→21:54)
[2017-07-14] MEDS: SODIUM CHLOR 0.9% 1000 ML INJ 1,000 ML IV SCH ×2 (09:08→18:02)
--- NOTE | 2017-07-14 10:38 | HHI.PR ---
Subjective Remarks Patient seen and evaluated today in follow-up for C. difficile colitis and diarrhea and abdominal discomfort. More abdominal discomfort today. Patient says he slept a bit better but still has quite a bit of diarrhea and is unable to keep food down complaining of nausea vomiting Objective Vitals Vital Signs Date Time Temp Pulse Resp B/P (MAP) Pulse Ox O2 Delivery O2 Flow Rate FiO2 07/14/17 07:56 98.2 86 20 149/92 (111) 100 07/14/17 00:21 98.3 80 20 140/76 (97) 98 07/13/17 20:00 98.0 77 20 182/86 (118) 99 07/13/17 17:58 22 07/13/17 12:00 97.9 91 20 142/94 (110) 99 I/O 07/13/17 07/13/17 07/13/17 07/14/17 07/14/17 07/14/17 07:00 15:00 23:00 07:00 15:00 23:00 Intake Total 0 ml 450 ml Balance 0 ml 450 ml Intake Oral 0 ml 450 ml # Voids 3 3 # Bowel Movements 10 2 Result Diagram: 07/14/17 0520 07/14/17 0520 Imaging Last Impressions Abdomen/Pelvis CT 07/08/17 0000 Signed Impressions: Service Date/Time: June 17:59 - CONCLUSION: 1. No acute findings. Residual contrast in bladder from injection performed yesterday. Left hip replacement. Diffuse mild ileus similar to prior examination. No evidence for obstruction. Colonic diverticulosis. Efren Ca MD Objective Remarks GENERAL: This is a well-nourished, well-developed patient, in no apparent distress. CARDIOVASCULAR: Regular rate and rhythm without murmurs, gallops, or rubs. RESPIRATORY: Clear to auscultation. Breath sounds equal bilaterally. No wheezes , rales, or rhonchi. GASTROINTESTINAL: Abdomen soft, non-tender, nondistended. Normal active bowel sounds MUSCULOSKELETAL: Extremities without clubbing, cyanosis, or edema. NEURO: Alert & Oriented x4 to person, place, time, situation. Moves all ext x4 A/P Problem List: (1) Diarrhea ICD Code: R19.7 - Diarrhea Status: Acute Plan: due to cdiff Continue with vancomycin and Dificid orally, awaiting ZINPLEVA d/w pharmacy diet increased Repeat CT abd Pelvis (2) Acute kidney injury ICD Code: N17.9 - Acute kidney failure, unspecified Status: Resolved Plan: resolved (3) Sepsis ICD Code: A41.9 - Sepsis, unspecified organism Status: Acute Plan: Secondary to CDiff Improved Patient with initial leukocytosis and tachycardia which are improved Discharge Planning Likely discharge pending clinical improvement Andie Barraza MD Jul 14, 2017 10:38
[2017-07-14] MEDS: PROMETHAZINE HCL 25 MG TAB PO SCH ×3 (11:06→21:54)
[2017-07-14 12:00] VITALS: BP 138/85; PULSE 79; RESP 20; TEMP 96.8; O2SAT 99
[2017-07-14] MEDS ORDERED: DIATRIZOATE MEGLUM/DIATRIZOATE SOD 9 ML CUP PO ONE (15:30)
[2017-07-14] MEDS: HYDROmorphone HCL 2 MG TAB PO PRN ×2 (15:48→21:56)
[2017-07-14 16:00] VITALS: BP 156/100; PULSE 86; RESP 20; TEMP 97.1; O2SAT 99
--- NOTE | 2017-07-14 17:33 | HHI.GIFU ---
Subjective Remarks Patient laying in bed, seems to be comfortable, he stated that he had rough night yesterday and he started receiving deficid last night at 9:00 and since 10 AM his diarrhea slowed down, still complaining of mild abdominal discomfort Objective Vitals I&O Vital Signs Date Time Temp Pulse Resp B/P (MAP) Pulse Ox O2 Delivery O2 Flow Rate FiO2 07/14/17 16:00 97.1 86 20 156/100 (118) 99 07/14/17 12:00 96.8 79 20 138/85 (102) 99 07/14/17 07:56 98.2 86 20 149/92 (111) 100 07/14/17 00:21 98.3 80 20 140/76 (97) 98 07/13/17 20:00 98.0 77 20 182/86 (118) 99 07/13/17 17:58 22 I/O 07/13/17 07/13/17 07/13/17 07/14/17 07/14/17 07/14/17 07:00 15:00 23:00 07:00 15:00 23:00 Intake Total 0 ml 450 ml Balance 0 ml 450 ml Intake Oral 0 ml 450 ml # Voids 3 3 # Bowel Movements 10 2 Laboratory Laboratory Tests Test 07/14/17 05:20 White Blood Count 10.6 Red Blood Count 3.85 Hemoglobin 10.5 Hematocrit 32.9 Mean Corpuscular Volume 85.5 Mean Corpuscular Hemoglobin 27.2 Mean Corpuscular Hemoglobin Concent 31.8 Red Cell Distribution Width 15.6 Platelet Count 380 Mean Platelet Volume 9.2 Neutrophils (%) (Auto) 74.3 Lymphocytes (%) (Auto) 13.5 Monocytes (%) (Auto) 11.0 Eosinophils (%) (Auto) 0.7 Basophils (%) (Auto) 0.5 Neutrophils # (Auto) 7.8 Lymphocytes # (Auto) 1.4 Monocytes # (Auto) 1.2 Eosinophils # (Auto) 0.1 Basophils # (Auto) 0.1 CBC Comment DIFF FINAL Differential Comment Blood Urea Nitrogen 6 Creatinine 1.10 Random Glucose 88 Calcium Level 8.3 Sodium Level 139 Potassium Level 3.6 Chloride Level 111 Carbon Dioxide Level 15.7 Anion Gap 12 Estimat Glomerular Filtration Rate 67 Date/Time Source Procedure Growth Status 07/08/17 19:30 Blood Peripheral Aerobic Blood Culture - Final NO GROWTH IN 5 DAYS Complete 3/15/18 19:30 Blood Peripheral Anaerobic Blood Culture - Final NO GROWTH IN 5 DAYS Complete Physical Exam HEENT: Pupils round and reactive to light; normocephalic; atraumatic; no jaundice. Throat is clear. NECK: Neck is supple, no JVD, CHEST: Chest is clear to anteriorly and posteriorly CARDIAC: Regular rate and rhythm ABDOMEN: Round, Soft, not distended mild diffuse discomfort and tenderness no hepatosplenomegaly; bowel sounds are soft EXTREMITIES: No clubbing, cyanosis, or edema. SKIN: Normal; no rash; no jaundice. 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 Assessment and Plan Assessment: (1) C. difficile colitis ICD Codes: A04.7 - Enterocolitis due to Clostridium difficile Status: Acute Plan Patient was seen and examined, agree with the note, still having significant diarrhea, may be partial or no respond to vancomycin, we will add Dificid 200 mg twice daily for 10 days, patient also interested in a research bacterium microbiota transplant we will see in the event the patient meets criteria, we will arrange for that as an outpatient 07/14/2017, this morning patient has less diarrhea he started receiving deficid since yesterday evening seems to be a little bit better, we will continue monitoring the patient Continue antibiotics Being evaluated for microbiota transplant protocol Harrison Corona MD Jul 14, 2017 17:33
[2017-07-14] MEDS ORDERED: IOHEXOL 350 MG/ML 10 ML VIAL (for RAD DIAG) IVCONTRAST ONE (17:48)
--- NOTE | 2017-07-14 19:12 | RADRPT ---
EXAM DATE/TIME: 07/14/2017 17:43 [facility] COMPARISON: No previous studies available for comparison. INDICATIONS : Abdominal pain. IV CONTRAST: 100 cc Omnipaque 350 (iohexol) IV ORAL CONTRAST: Prescribed oral contrast ingested. RADIATION DOSE: 8.35 CTDIvol (mGy) MEDICAL HISTORY : Hypertension. Diverticulitis. Pancreatitis. SURGICAL HISTORY : Discectomy, lumbar. ENCOUNTER: Subsequent ACUITY: 1 week PAIN SCALE: 2/10 LOCATION: abdomen TECHNIQUE: Volumetric scanning of the abdomen and pelvis was performed. Using automated exposure control and ad justment of the mA and/or kV according to patient size, radiation dose was kept as low as reasonably achievable to obtain optimal diagnostic quality images. DICOM format image data is available electro nically for review and comparison. FINDINGS: There is a 2.3 x 1.5 cm circumscribed enhancing fluid collection in the distal sigmoid colon, possibl y a small diverticular abscess with a much inflammatory change. This is more prominent than on a prio r study from July 06. There is colonic diverticulosis especially in the sigmoid colon with mural thi ckening. Lateral bases are clear. No acute findings in the liver, spleen, adrenals or pancreas. There is bilia ry ductal dilatation to 12 mm. No gallstones. No free air free fluid. No bowel obstruction. CONCLUSION: 2.3 x 1.5 cm rim-enhancing fluid collection the distal sigmoid colonic wall, possibly a small abscess of other significant inflammatory change is identified in the surrounding soft tissues. There is sig moid diverticulosis. Small hiatal hernia. Biliary ductal dilatation to 12 mm. No free fluid or free air. Efren Ca MD on July 14, 2017 at 19:00 Board Certified Radiologist. This report was verified electronically.
[2017-07-14 20:51] VITALS: BP 150/92; PULSE 101; RESP 20; TEMP 97.6; O2SAT 97
[2017-07-14] MEDS ORDERED: ZOLPIDEM TARTRATE 10 MG TAB PO PRN (21:00)
[2017-07-14] MEDS: guaiFENesin SOLUTION 200 MG/10 ML CUP PO PRN (21:54)
[2017-07-14] MEDS: LACTOBACILLUS ACIDOPHILUS TAB PO SCH (22:31)
[2017-07-14 23:56] VITALS: BP 158/80
[2017-07-15] VITALS: BP 158/80; PULSE 106; RESP 20; TEMP 99.4; O2SAT 100
[2017-07-15] MEDS: PROMETHAZINE HCL 25 MG TAB PO SCH ×4 (04:12→23:38)
[2017-07-15] MEDS: SODIUM CHLOR 0.9% 1000 ML INJ 1,000 ML IV SCH ×2 (04:17→19:51)
[2017-07-15] MEDS: HYDROmorphone HCL 2 MG TAB PO PRN ×5 (04:17→23:38)
[2017-07-15] MEDS: CHOLESTYRAMINE 4 GM PACKET PO SCH ×4 (05:48→23:38)
[2017-07-15 06:55] LABS: AUTOMATED NEUTROPHIL # 7.3 TH/MM3 (1.8-7.7); BASOPHIL # 0.1 TH/MM3 (0-0.2); BASOPHIL % 0.9 % (0.0-2.0); EOSINOPHIL # 0.1 TH/MM3 (0-0.4); EOSINOPHIL % 1.1 % (0.0-4.0); HEMATOCRIT 32.9 % (39.0-51.0); HEMOGLOBIN 10.4 GM/DL (13.0-17.0); LYMPH % 22.4 % (9.0-44.0); LYMPHOCYTE # 2.6 TH/MM3 (1.0-4.8); MEAN CELL VOLUME 85.2 FL (80.0-100.0); MEAN CORPUSCULAR HGB CONC 31.7 % (32.0-36.0); MEAN PLATELET VOLUME 9.3 FL (7.0-11.0); MONO % 12.2 % (0.0-8.0); MONOCYTE # 1.4 TH/MM3 (0-0.9); NEUT % 63.4 % (16.0-70.0); PLATELET COUNT 433 TH/MM3 (150-450); RED BLOOD COUNT 3.86 MIL/MM3 (4.50-5.90); WHITE BLOOD COUNT 11.5 TH/MM3 (4.0-11.0)
[2017-07-15 06:57] LABS: CHLORIDE 109 MEQ/L (98-107); SODIUM (NA) 138 MEQ/L (136-145)
[2017-07-15 07:01] LABS: CALCIUM 8.2 MG/DL (8.5-10.1)
[2017-07-15 07:02] LABS: ALBUMIN 3.2 GM/DL (3.4-5.0); BICARBONATE 16.1 MEQ/L (21.0-32.0); BLOOD UREA NITROGEN 6 MG/DL (7-18); GLUCOSE,RANDOM 86 MG/DL (74-106)
[2017-07-15 07:05] LABS: ALT (GPT) 43 U/L (12-78); AST (GOT) 23 U/L (15-37); GLOMERULAR FILTRATION RATE 67 ML/MIN (>89)
[2017-07-15 07:07] LABS: TOTAL BILIRUBIN ADULT 0.2 MG/DL (0.2-1.0); TOTAL PROTEIN 6.8 GM/DL (6.4-8.2)
[2017-07-15 07:08] LABS: ALKALINE PHOSPHATASE 162 U/L (45-117)
[2017-07-15 08:48] VITALS: BP 127/83; PULSE 93; RESP 16; TEMP 98.1; O2SAT 98
[2017-07-15] MEDS: amLODIPine BESYLATE 5 MG TAB PO SCH (08:48)
[2017-07-15] MEDS: DICYCLOMINE HCL 10 MG CAP PO SCH ×4 (08:48→19:52)
[2017-07-15] MEDS: LISINOPRIL 20 MG TAB PO SCH (08:48)
[2017-07-15] MEDS: LACTOBACILLUS ACIDOPHILUS TAB PO SCH ×3 (08:48→17:13)
[2017-07-15] MEDS: VANCOMYCIN 25 MG/ML SOLN 100 ML BOTTLE PO SCH ×4 (08:49→19:51)
[2017-07-15] MEDS: FIDAXOMICIN 200 MG TAB PO SCH ×2 (08:49→19:52)
[2017-07-15] MEDS: SODIUM CHLORIDE 0.9% FLUSH 10 ML FLUSH IV FLUSH SCH ×2 (08:50→19:51)
[2017-07-15] MEDS: ALPRAZolam 0.5 MG TAB PO PRN ×2 (09:31→19:52)
[2017-07-15] MEDS ORDERED: POTASSIUM CHLORIDE 10 MEQ CONTROLLED RELEASE TAB PO ONE (11:00)
--- NOTE | 2017-07-15 11:54 | HHI.PR ---
Subjective Remarks Patient seen and evaluated today in follow up for Cdiff Diarrhea improved, slept better Objective Vitals Vital Signs Date Time Temp Pulse Resp B/P (MAP) Pulse Ox O2 Delivery O2 Flow Rate FiO2 07/15/17 08:48 98.1 93 16 127/83 (98) 98 07/15/17 00:00 99.4 106 20 158/80 (106) 100 07/14/17 23:56 158/80 (106) Automatic Cuff 07/14/17 20:51 97.6 101 20 150/92 (111) 97 07/14/17 16:00 97.1 86 20 156/100 (118) 99 07/14/17 12:00 96.8 79 20 138/85 (102) 99 I/O 07/14/17 07/14/17 07/14/17 07/15/17 07/15/17 07/15/17 07:00 15:00 23:00 07:00 15:00 23:00 Intake Total 449 ml 1551 ml Balance 449 ml 1551 ml Intake Oral 1000 ml IV Total 449 ml 551 ml # Voids 4 # Bowel Movements 5 Result Diagram: 07/15/17 0525 07/15/17 0525 Objective Remarks GENERAL: This is a well-nourished, well-developed patient, in no apparent distress. CARDIOVASCULAR: Regular rate and rhythm without murmurs, gallops, or rubs. RESPIRATORY: Clear to auscultation. Breath sounds equal bilaterally. No wheezes , rales, or rhonchi. GASTROINTESTINAL: Abdomen soft, non-tender, nondistended. Normal active bowel sounds MUSCULOSKELETAL: Extremities without clubbing, cyanosis, or edema. NEURO: Alert & Oriented x4 to person, place, time, situation. Moves all ext x4 A/P Problem List: (1) Diarrhea ICD Code: R19.7 - Diarrhea Status: Acute Plan: due to cdiff Improved Continue with vancomycin and Dificid orally diet increased Repeat CT abd Pelvis shows some more inflammation (2) Acute kidney injury ICD Code: N17.9 - Acute kidney failure, unspecified Status: Resolved Plan: resolved (3) Sepsis ICD Code: A41.9 - Sepsis, unspecified organism Status: Acute Plan: Secondary to CDiff Improved Patient with initial leukocytosis and tachycardia which are improved Discharge Planning Likely discharge pending clinical improvement Andie Barraza MD Jul 15, 2017 11:54
[2017-07-15 12:32] VITALS: BP 169/104; PULSE 107; RESP 16; TEMP 97.5; O2SAT 97
--- NOTE | 2017-07-15 14:42 | HHI.GIFU ---
Subjective Remarks Patient is resting in the bed States he was able to sleep all night for the first time in many days Bowel movements still liquid brown but less in volume, approximately 6 times since he awakened this morning Mild tachycardia noted 107, low-grade fever 99.4 at midnight last night (Nohemi Ramos) Objective Vitals I&O Vital Signs Date Time Temp Pulse Resp B/P (MAP) Pulse Ox O2 Delivery O2 Flow Rate FiO2 07/15/17 12:32 97.5 107 16 169/104 (125) 97 07/15/17 08:48 98.1 93 16 127/83 (98) 98 07/15/17 00:00 99.4 106 20 158/80 (106) 100 07/14/17 23:56 158/80 (106) Automatic Cuff 07/14/17 20:51 97.6 101 20 150/92 (111) 97 07/14/17 16:00 97.1 86 20 156/100 (118) 99 I/O 07/14/17 07/14/17 07/14/17 07/15/17 07/15/17 07/15/17 07:00 15:00 23:00 07:00 15:00 23:00 Intake Total 449 ml 1551 ml Balance 449 ml 1551 ml Intake Oral 1000 ml IV Total 449 ml 551 ml # Voids 4 # Bowel Movements 5 Laboratory Laboratory Tests Test 07/15/17 05:25 White Blood Count 11.5 Red Blood Count 3.86 Hemoglobin 10.4 Hematocrit 32.9 Mean Corpuscular Volume 85.2 Mean Corpuscular Hemoglobin 27.0 Mean Corpuscular Hemoglobin Concent 31.7 Red Cell Distribution Width 16.0 Platelet Count 433 Mean Platelet Volume 9.3 Neutrophils (%) (Auto) 63.4 Lymphocytes (%) (Auto) 22.4 Monocytes (%) (Auto) 12.2 Eosinophils (%) (Auto) 1.1 Basophils (%) (Auto) 0.9 Neutrophils # (Auto) 7.3 Lymphocytes # (Auto) 2.6 Monocytes # (Auto) 1.4 Eosinophils # (Auto) 0.1 Basophils # (Auto) 0.1 CBC Comment DIFF FINAL Differential Comment Blood Urea Nitrogen 6 Creatinine 1.10 Random Glucose 86 Total Protein 6.8 Albumin 3.2 Calcium Level 8.2 Alkaline Phosphatase 162 Aspartate Amino Transf (AST/SGOT) 23 Alanine Aminotransferase (ALT/SGPT) 43 Total Bilirubin 0.2 Sodium Level 138 Potassium Level 3.0 Chloride Level 109 Carbon Dioxide Level 16.1 Anion Gap 13 Estimat Glomerular Filtration Rate 67 Lactic Acid Level 0.8 Date/Time Source Procedure Growth Status 07/08/17 19:30 Blood Peripheral Aerobic Blood Culture - Final NO GROWTH IN 5 DAYS Complete 07/08/17 19:30 Blood Peripheral Anaerobic Blood Culture - Final NO GROWTH IN 5 DAYS Complete Imaging Last Impressions Abdomen/Pelvis CT 07/14/17 0000 Signed Impressions: Service Date/Time: Friday, July 14, 2017 17:43 - CONCLUSION: 2.3 x 1.5 cm rim-enhancing fluid collection the distal sigmoid colonic wall, possibly a small abscess of other significant inflammatory change is identified in the surrounding soft tissues. There is sigmoid diverticulosis. Small hiatal hernia. Biliary ductal dilatation to 12 mm. No free fluid or free air. Efren Ca MD Physical Exam HEENT: Pupils round and reactive to light; normocephalic; atraumatic; pale NECK: Neck is supple, no JVD, CHEST: Chest is clear to anteriorly and posteriorly no obvious rhonchi CARDIAC: Regular rate and mild tachycardic rhythm off and on ABDOMEN: Flat, Soft, not distended , mild mid and lower abdominal discomfort , bowel sounds are soft EXTREMITIES: No clubbing, cyanosis, or edema. SKIN: Normal; no rash; no jaundice. 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 (Nohemi Ramos) Assessment and Plan Assessment: (1) C. difficile colitis ICD Codes: A04.7 - Enterocolitis due to Clostridium difficile Status: Acute Plan 62-year-old male admitted on 07/08/17 with positive C. difficile acute kidney injury, and dehydration . still having significant diarrhea, may be partial or no respond to vancomycin, we will add Dificid 200 mg twice daily for 10 days, patient also interested in a research bacterium microbiota transplant we will see in the event the patient meets criteria, we will arrange for that as an outpatient 07/14/2017, this morning patient has less diarrhea he started receiving deficid since yesterday evening seems to be a little bit better, we will continue monitoring the patient Continue antibiotics Being evaluated for microbiota transplant protocol 07/15/17, patient is showing some gradual improvement was able to sleep all night last night without awakening for diarrhea. Has had a decrease in volume of brown watery stools, noted 6 stools so far since awakening this a.m. still has some mid and lower abdominal cramping and discomfort, but does note small gradual improvement on a daily basis. Labs noted increase in alkaline phosphatase 162. 10.4 hemoglobin Plan Diet heart healthy Continue Dificid, Continue vancomycin by mouth Lactobacillus Cholestyramine Bentyl Zofran Monitor intake and output and encouraged by mouth fluids Monitor for any active or acute bleeding Monitor hemoglobin and labs Further recommendations to follow, checking in to fecal transplant study This patient was seen per myself and , was written on his behalf (Nohemi Ramos) Plan Patient was seen and examined, agree with above-noted, patient doing better as far as the diarrhea and abdominal discomfort, we will continue medication, if patient discharged soon we will see him as an outpatient for fecal transplant study (Harrison Corona MD) Nohemi Ramos Jul 15, 2017 14:42 Harrison Corona MD Jul 15, 2017 18:34
[2017-07-15 17:51] VITALS: BP 138/89; PULSE 95; RESP 16; TEMP 98.2; O2SAT 97
[2017-07-15] MEDS: cloNIDine HCL 0.1 MG TAB PO PRN (19:52)
[2017-07-15] MEDS: guaiFENesin SOLUTION 200 MG/10 ML CUP PO PRN (19:53)
[2017-07-15 20:00] VITALS: BP 164/98; PULSE 95; RESP 17; TEMP 98.6; O2SAT 98
[2017-07-16] VITALS: BP 143/89; PULSE 90; RESP 18; TEMP 98.2; O2SAT 97
[2017-07-16] MEDS: SODIUM CHLOR 0.9% 1000 ML INJ 1,000 ML IV SCH (05:13)
[2017-07-16] MEDS: PROMETHAZINE HCL 25 MG TAB PO SCH ×4 (05:13→21:58)
[2017-07-16] MEDS: HYDROmorphone HCL 2 MG TAB PO PRN ×4 (05:14→21:59)
[2017-07-16] MEDS: CHOLESTYRAMINE 4 GM PACKET PO SCH ×3 (05:14→17:26)
[2017-07-16 06:54] LABS: AUTOMATED NEUTROPHIL # 7.1 TH/MM3 (1.8-7.7); BASOPHIL # 0.2 TH/MM3 (0-0.2); BASOPHIL % 1.9 % (0.0-2.0); EOSINOPHIL # 0.2 TH/MM3 (0-0.4); EOSINOPHIL % 1.8 % (0.0-4.0); HEMOGLOBIN 10.4 GM/DL (13.0-17.0); LYMPH % 19.5 % (9.0-44.0); LYMPHOCYTE # 2.1 TH/MM3 (1.0-4.8); MEAN CELL VOLUME 85.1 FL (80.0-100.0); MEAN CORPUSCULAR HEMOGLOBIN 26.8 PG (27.0-34.0); MEAN CORPUSCULAR HGB CONC 31.5 % (32.0-36.0); MEAN PLATELET VOLUME 8.8 FL (7.0-11.0); MONO % 8.3 % (0.0-8.0); MONOCYTE # 0.9 TH/MM3 (0-0.9); NEUT % 68.5 % (16.0-70.0); PLATELET COUNT 475 TH/MM3 (150-450); RED BLOOD COUNT 3.88 MIL/MM3 (4.50-5.90); RED CELL DISTRIBUTION WIDTH 15.7 % (11.6-17.2); WHITE BLOOD COUNT 10.5 TH/MM3 (4.0-11.0)
[2017-07-16 07:18] LABS: BICARBONATE 13.9 MEQ/L (21.0-32.0); CALCIUM 8.1 MG/DL (8.5-10.1)
[2017-07-16 07:22] LABS: CREATININE 0.96 MG/DL (0.60-1.30)
[2017-07-16 08:00] VITALS: BP 176/93; PULSE 80; RESP 18; TEMP 98; O2SAT 98
[2017-07-16] MEDS: amLODIPine BESYLATE 5 MG TAB PO SCH (08:21)
[2017-07-16] MEDS: LACTOBACILLUS ACIDOPHILUS TAB PO SCH ×3 (08:21→17:26)
[2017-07-16] MEDS: FIDAXOMICIN 200 MG TAB PO SCH ×2 (08:21→21:58)
[2017-07-16] MEDS: LISINOPRIL 20 MG TAB PO SCH (08:21)
[2017-07-16] MEDS: DICYCLOMINE HCL 10 MG CAP PO SCH ×4 (08:22→21:58)
[2017-07-16] MEDS: VANCOMYCIN 25 MG/ML SOLN 100 ML BOTTLE PO SCH ×4 (08:22→21:58)
[2017-07-16] MEDS: SODIUM CHLORIDE 0.9% FLUSH 10 ML FLUSH IV FLUSH SCH ×2 (08:23→22:00)
[2017-07-16] MEDS: ALPRAZolam 0.5 MG TAB PO PRN ×2 (09:08→21:58)
--- NOTE | 2017-07-16 11:52 | HHI.PR ---
Subjective Remarks Patient seen and evaluated today in follow-up for C. difficile colitis with recurrent diarrhea. Diarrhea and abdominal discomfort are improved and patient is tolerating his diet however he is still having 6-7 bowel movements per shift Objective Vitals Vital Signs Date Time Temp Pulse Resp B/P (MAP) Pulse Ox O2 Delivery O2 Flow Rate FiO2 07/16/17 08:00 98.0 80 18 176/93 (120) 98 07/16/17 06:14 18 07/16/17 00:00 98.2 90 18 143/89 (107) 97 07/15/17 20:00 98.6 95 17 164/98 (120) 98 07/15/17 17:51 98.2 95 16 138/89 (105) 97 07/15/17 12:32 97.5 107 16 169/104 (125) 97 I/O 07/15/17 07/15/17 07/15/17 07/16/17 07/16/17 07/16/17 07:00 15:00 23:00 07:00 15:00 23:00 Intake Total 1551 ml 2000 ml 1000 ml Balance 1551 ml 2000 ml 1000 ml Intake Oral 1000 ml 1000 ml IV Total 551 ml 1000 ml 1000 ml # Voids 4 5 3 # Bowel Movements 5 5 Result Diagram: 07/16/1737 07/16/17 0637 Objective Remarks GENERAL: This is a well-nourished, well-developed patient, in no apparent distress. CARDIOVASCULAR: Regular rate and rhythm without murmurs, gallops, or rubs. RESPIRATORY: Clear to auscultation. Breath sounds equal bilaterally. No wheezes , rales, or rhonchi. GASTROINTESTINAL: Abdomen soft, non-tender, nondistended. Normal active bowel sounds MUSCULOSKELETAL: Extremities without clubbing, cyanosis, or edema. NEURO: Alert & Oriented x4 to person, place, time, situation. Moves all ext x4 A/P Problem List: (1) Diarrhea ICD Code: R19.7 - Diarrhea Status: Acute Plan: due to cdiff And with evidence of acidosis Somewhat improved Continue with vancomycin and Dificid orally diet increased Repeat CT abd Pelvis shows some more inflammation (2) Sepsis ICD Code: A41.9 - Sepsis, unspecified organism Status: Acute Plan: Secondary to CDiff Improved Patient with initial leukocytosis and tachycardia which are improved (3) Hypertension ICD Code: I10 - Hypertension Status: Chronic Plan: Continue with amlodipine and lisinopril DC IV fluids Clonidine as needed Discharge Planning Likely discharge pending clinical improvement Andie Barraza MD Jul 16, 2017 11:52
[2017-07-16 12:00] VITALS: BP 178/100; PULSE 88; RESP 18; TEMP 99.3; O2SAT 96
[2017-07-16] MEDS: cloNIDine HCL 0.2 MG TAB PO PRN (12:21)
--- NOTE | 2017-07-16 15:21 | HHI.GIFU ---
Subjective Remarks Patient is laying in bed comfortably, ate his breakfast, doing better, when she stools not as watery as before 4-5 bowel movements in the last 24 hours Objective Vitals I&O Vital Signs Date Time Temp Pulse Resp B/P (MAP) Pulse Ox O2 Delivery O2 Flow Rate FiO2 07/16/17 12:00 99.3 88 18 178/100 (126) 96 07/16/17 08:00 98.0 80 18 176/93 (120) 98 07/16/17 06:14 18 07/16/17 00:00 98.2 90 18 143/89 (107) 97 07/15/17 20:00 98.6 95 17 164/98 (120) 98 07/15/17 17:51 98.2 95 16 138/89 (105) 97 I/O 07/15/17 07/15/17 07/15/17 07/16/17 07/16/17 07/16/17 07:00 15:00 23:00 07:00 15:00 23:00 Intake Total 1551 ml 2000 ml 1000 ml Balance 1551 ml 2000 ml 1000 ml Intake Oral 1000 ml 1000 ml IV Total 551 ml 1000 ml 1000 ml # Voids 4 5 3 # Bowel Movements 5 5 Laboratory Laboratory Tests Test 07/16/17 06:37 White Blood Count 10.5 Red Blood Count 3.88 Hemoglobin 10.4 Hematocrit 33.0 Mean Corpuscular Volume 85.1 Mean Corpuscular Hemoglobin 26.8 Mean Corpuscular Hemoglobin Concent 31.5 Red Cell Distribution Width 15.7 Platelet Count 475 Mean Platelet Volume 8.8 Neutrophils (%) (Auto) 68.5 Lymphocytes (%) (Auto) 19.5 Monocytes (%) (Auto) 8.3 Eosinophils (%) (Auto) 1.8 Basophils (%) (Auto) 1.9 Neutrophils # (Auto) 7.1 Lymphocytes # (Auto) 2.1 Monocytes # (Auto) 0.9 Eosinophils # (Auto) 0.2 Basophils # (Auto) 0.2 CBC Comment DIFF FINAL Differential Comment Blood Urea Nitrogen 6 Creatinine 0.96 Random Glucose 101 Calcium Level 8.1 Sodium Level 138 Potassium Level 3.5 Chloride Level 113 Carbon Dioxide Level 13.9 Anion Gap 11 Estimat Glomerular Filtration Rate 79 Date/Time Source Procedure Growth Status 07/08/17 19:30 Blood Peripheral Aerobic Blood Culture - Final NO GROWTH IN 5 DAYS Complete 07/08/17 19:30 Blood Peripheral Anaerobic Blood Culture - Final NO GROWTH IN 5 DAYS Complete Physical Exam HEENT: Pupils round and reactive to light; normocephalic; atraumatic; pale NECK: Neck is supple, no JVD, CHEST: Chest is clear to anteriorly and posteriorly no obvious rhonchi CARDIAC: Regular rate and mild tachycardic rhythm off and on ABDOMEN: Flat, Soft, not distended , less tenderness in the lower abdominal discomfort ,bowel sounds are soft EXTREMITIES: No clubbing, cyanosis, or edema. SKIN: Normal; no rash; no jaundice. Pale MOUNTER SAXOPHONES: No focal deficits; alert and oriented times three. Assessment and Plan Assessment: (1) C. difficile colitis ICD Codes: A04.7 - Enterocolitis due to Clostridium difficile Status: Acute Plan Patient was seen and examined, patient is doing better, less diarrhea, continued differential seed Patient may be discharged home tomorrow if his diarrhea improved to follow up with our office on Wednesday or Wednesday for possible C. difficile study with microbiota transplant Harrison Corona MD Jul 16, 2017 15:21
[2017-07-16 16:00] VITALS: BP 117/80; PULSE 62; RESP 18; TEMP 97.2; O2SAT 97
[2017-07-16 20:00] VITALS: BP 146/82; PULSE 66; RESP 20; TEMP 97.3; O2SAT 100
[2017-07-16] MEDS: guaiFENesin SOLUTION 200 MG/10 ML CUP PO PRN (21:58)
[2017-07-17] VITALS: BP 168/88; PULSE 67; RESP 20; TEMP 98; O2SAT 98
[2017-07-17] MEDS: CHOLESTYRAMINE 4 GM PACKET PO SCH ×3 (01:03→12:00)
[2017-07-17] MEDS: HYDROmorphone HCL 2 MG TAB PO PRN ×4 (01:04→13:14)
[2017-07-17] MEDS: PROMETHAZINE HCL 25 MG TAB PO SCH ×2 (04:40→09:25)
[2017-07-17 08:00] VITALS: BP 162/89; PULSE 66; RESP 14; TEMP 97.9; O2SAT 100
[2017-07-17 09:19] LABS: BICARBONATE 21.2 MEQ/L (21.0-32.0); CALCIUM 9.1 MG/DL (8.5-10.1); CREATININE 1.1 MG/DL (0.60-1.30)
[2017-07-17] MEDS: VANCOMYCIN 25 MG/ML SOLN 100 ML BOTTLE PO SCH ×2 (09:24→13:00)
[2017-07-17] MEDS: LISINOPRIL 20 MG TAB PO SCH (09:24)
[2017-07-17] MEDS: DICYCLOMINE HCL 10 MG CAP PO SCH ×2 (09:24→13:00)
[2017-07-17] MEDS: amLODIPine BESYLATE 5 MG TAB PO SCH (09:24)
[2017-07-17] MEDS: SODIUM CHLORIDE 0.9% FLUSH 10 ML FLUSH IV FLUSH SCH (09:25)
[2017-07-17] MEDS: LACTOBACILLUS ACIDOPHILUS TAB PO SCH ×2 (09:25→13:00)
[2017-07-17] MEDS: FIDAXOMICIN 200 MG TAB PO SCH (09:25)
[2017-07-17] MEDS: ALPRAZolam 0.5 MG TAB PO PRN (09:30)
[2017-07-17] MEDS ORDERED: DIFI200T PO (11:04)
[2017-07-17] MEDS ORDERED: VANC125C3 PO (11:04)
[2017-07-17] MEDS ORDERED: CHOL4POW4 PO (11:04)
[2017-07-17] MEDS ORDERED: DILA2TAB4 PO (11:04)
[2017-07-17] MEDS ORDERED: PROM25TA10 PO (11:04)
--- NOTE | 2017-07-17 11:05 | HHI.DCPOC ---
Discharge Care Plan Diagnosis: (1) C. difficile colitis Goals to Promote Your Health * To prevent worsening of your condition and complications * To maintain your health at the optimal level Directions to Meet Your Goals Take your medications as prescribed Follow your dietary instruction Follow activity as directed Keep your appointments as scheduled Take your immunizations and boosters as scheduled If your symptoms worsen call your PCP, if no PCP go to Urgent Care Center or Emergency Room Smoking is Dangerous to Your Health. Avoid second hand smoke Call the 24-hour hour crisis hotline for domestic abuse at Andie Barraza MD Jul 17, 2017 11:05
--- NOTE | 2017-07-17 11:07 | HHI.DS ---
Discharge Summary Admission Date Jul 08, 2017 at 20:44 Discharge Date: Jul 17, 2017 Admitting Diagnosis (1) Diarrhea ICD Code: R19.7 - Diarrhea Status: Acute (2) Sepsis ICD Code: A41.9 - Sepsis, unspecified organism Status: Acute (3) Hypertension ICD Code: I10 - Hypertension Status: Chronic Procedures None Brief History - From Admission Mr. Adams is a 62-year-old male. he has a history of recurrent C. difficile. He comes back to the hospital today with complaints of diarrhea. At this point she showing signs of dehydration despite trying to take oral hydration at home. As an outpatient he follows with Dr. Hughes. Today in the ER he has tachycardia, leukocytosis, and an apparent bowel infection which qualifies him with sepsis criteria. CBC/BMP: 07/16/17 0637 07/17/17 0820 Significant Findings Laboratory Tests Test 07/15/17 05:25 07/16/17 06:37 07/17/17 08:20 White Blood Count 11.5 TH/MM3 (4.0-11.0) Red Blood Count 3.86 MIL/MM3 (4.50-5.90) 3.88 MIL/MM3 (4.50-5.90) Hemoglobin 10.4 GM/DL (13.0-17.0) 10.4 GM/DL (13.0-17.0) Hematocrit 32.9 % (39.0-51.0) 33.0 % (39.0-51.0) Mean Corpuscular Hemoglobin Concent 31.7 % (32.0-36.0) 31.5 % (32.0-36.0) Monocytes (%) (Auto) 12.2 % (0.0-8.0) 8.3 % (0.0-8.0) Monocytes # (Auto) 1.4 TH/MM3 (0-0.9) Blood Urea Nitrogen 6 MG/DL (7-18) 6 MG/DL (7-18) Albumin 3.2 GM/DL (3.4-5.0) Calcium Level 8.2 MG/DL (8.5-10.1) 8.1 MG/DL (8.5-10.1) Alkaline Phosphatase 162 U/L (45-117) Potassium Level 3.0 MEQ/L (3.5-5.1) Chloride Level 109 MEQ/L (98-107) 113 MEQ/L (98-107) 110 MEQ/L (98-107) Carbon Dioxide Level 16.1 MEQ/L (21.0-32.0) 13.9 MEQ/L (21.0-32.0) Estimat Glomerular Filtration Rate 67 ML/MIN (>89) 79 ML/MIN (>89) 67 ML/MIN (>89) Mean Corpuscular Hemoglobin 26.8 PG (27.0-34.0) Platelet Count 475 TH/MM3 (150-450) Random Glucose 107 MG/DL (74-106) Imaging Last Impressions Abdomen/Pelvis CT 07/14/17 0000 Signed Impressions: Service Date/Time: Friday, July 14, 2017 17:43 - CONCLUSION: 2.3 x 1.5 cm rim-enhancing fluid collection the distal sigmoid colonic wall, possibly a small abscess of other significant inflammatory change is identified in the surrounding soft tissues. There is sigmoid diverticulosis. Small hiatal hernia. Biliary ductal dilatation to 12 mm. No free fluid or free air. Efren Ca MD PE at Discharge GENERAL: This is a well-nourished, well-developed patient, in no apparent distress. CARDIOVASCULAR: Regular rate and rhythm without murmurs, gallops, or rubs. RESPIRATORY: Clear to auscultation. Breath sounds equal bilaterally. No wheezes , rales, or rhonchi. GASTROINTESTINAL: Abdomen soft, non-tender, nondistended. Normal active bowel sounds MUSCULOSKELETAL: Extremities without clubbing, cyanosis, or edema. NEURO: Alert & Oriented x4 to person, place, time, situation. Moves all ext x4 Pt update on day of discharge Patient doing better. His stool more formed. Tolerating diet and pain control by mouth Ambulatory without difficulty Discharge plans discussed with patient he is agreeable Hospital Course This patient is a 62-year-old woman with recurrent C. difficile due to recurrent antibiotic usage. This was quite severe and patient required extensive modifications and therapy and pain control and antiemetics. Finally his stool consistency improved in frequency improved. Patient was dehydrated and required days of IV hydration and was unable to keep food down. He was seen by gastroenterology in consultation. Regimen was finally found it was appropriate for him and beneficial for his recovery. He was discharged home Pt Condition on Discharge: Good Discharge Disposition: Discharge Home Discharge Time: > 30 minutes Discharge Instructions DIET: Follow Instructions for: As Tolerated, No Restrictions Activities you can perform: Regular-No Restrictions Follow up Referrals: Gastroenterology - 1 Week with Harrison Corona MD New Medications: Vancomycin (Vancomycin) 125 Mg Cap 125 MG PO QID for Infection for 75 Days, CAP 0 Refills Take 125 mg by mouth 4 xday for 10d then 125 mg po bid for 7d then take 125 mg QOD for 8 weeks Cholestyramine (Cholestyramine) 4 Gm/Pkt Powd 4 GM PO Q6HR for stool binder, #100 PACKET 1 packet contains 4 grams of cholestyramine. Fidaxomicin (Dificid) 200 Mg Tab 200 MG PO BID for stool, #12 TAB Hydromorphone (Dilaudid) 2 Mg Tab 2 MG PO Q4H PRN for pain, #20 TAB Promethazine (Phenergan) 25 Mg Tablet 25 MG PO Q6H for Nausea/Vomiting, #30 TAB Continued Medications: Alprazolam (Xanax) 0.5 Mg Tab 0.5 MG PO Q12HR PRN for ANXIETY, TAB 0 Refills Amlodipine (Amlodipine) 5 Mg Tab 5 MG PO DAILY for Blood Pressure Management, #30 TAB 0 Refills Dicyclomine (Bentyl) 10 Mg Cap 10 MG PO QID for Bowel Management, #60 CAP 0 Refills Lisinopril (Lisinopril) 20 Mg Tab 20 MG PO DAILY, #30 TAB 0 Refills Saccharomyces Boulardii (Florastor) 250 Mg Cap 250 MG PO BID for Nutritional Supplement, CAP 0 Refills Discontinued Medications: Promethazine (Promethazine) 12.5 Mg Tab 12.5 MG PO Q6H PRN for NAUSEA OR VOMITING, TAB 0 Refills Andie Barraza MD Jul 17, 2017 11:07
[2017-07-17 12:00] VITALS: BP 179/94; PULSE 88; RESP 14; TEMP 97.6; O2SAT 99
--- NOTE | 2017-07-17 12:19 | HHI.GIFU ---
GI Follow-up Note Consult Follow-up Subjective: Patient laying in bed comfortably, ready for discharge.Still some loose stool, but better . He will call office on Wednesday for research study .Some nausea, states he vomited in am, no one witnessed it. Objective: PHYSICAL EXAMINATION: Vitals signs stable No fever Vital Signs Date Time Temp Pulse Resp B/P (MAP) Pulse Ox O2 Delivery O2 Flow Rate FiO2 07/17/17 08:00 97.9 66 14 162/89 (113) 100 07/17/17 05:41 20 HEENT: Pupils round and reactive to light; normocephalic; atraumatic; no jaundice. Throat is clear. NECK: Neck is supple, no JVD, no lymphadenopathy. CHEST: Chest is clear to auscultation and percussion. CARDIAC: Regular rate and rhythm with no murmur gallop or rubs. ABDOMEN: Soft, nondistended, nontender; no hepatosplenomegaly; bowel sounds are present in all four quadrants. EXTREMITIES: No clubbing, cyanosis, or edema. SKIN: Normal; no rash; no jaundice. EXPLOSIVES ENGINEER: No focal deficits; alert and oriented times three. Available Data (labs, X- Rays, Procedues) : Laboratory Tests Test 07/16/17 06:37 07/17/17 08:20 White Blood Count 10.5 TH/MM3 Red Blood Count 3.88 MIL/MM3 Hemoglobin 10.4 GM/DL Hematocrit 33.0 % Mean Corpuscular Volume 85.1 FL Mean Corpuscular Hemoglobin 26.8 PG Mean Corpuscular Hemoglobin Concent 31.5 % Red Cell Distribution Width 15.7 % Platelet Count 475 TH/MM3 Mean Platelet Volume 8.8 FL Neutrophils (%) (Auto) 68.5 % Lymphocytes (%) (Auto) 19.5 % Monocytes (%) (Auto) 8.3 % Eosinophils (%) (Auto) 1.8 % Basophils (%) (Auto) 1.9 % Neutrophils # (Auto) 7.1 TH/MM3 Lymphocytes # (Auto) 2.1 TH/MM3 Monocytes # (Auto) 0.9 TH/MM3 Eosinophils # (Auto) 0.2 TH/MM3 Basophils # (Auto) 0.2 TH/MM3 CBC Comment DIFF FINAL Differential Comment Blood Urea Nitrogen 6 MG/DL 7 MG/DL Creatinine 0.96 MG/DL 1.10 MG/DL Random Glucose 101 MG/DL 107 MG/DL Calcium Level 8.1 MG/DL 9.1 MG/DL Sodium Level 138 MEQ/L 139 MEQ/L Potassium Level 3.5 MEQ/L 3.6 MEQ/L Chloride Level 113 MEQ/L 110 MEQ/L Carbon Dioxide Level 13.9 MEQ/L 21.2 MEQ/L Anion Gap 11 MEQ/L 8 MEQ/L Estimat Glomerular Filtration Rate 79 ML/MIN 67 ML/MIN ASSESSMENT/PLAN: c diff colitis on Dificid and Vancomycin - improving CT abdomen/pelvis done on 07/14/17 showed possible small sigmoid abscess -will need fu ct in 2 weeks Recommendations if dc fu gi 1-2 weeks if worse return to ed call office on Wednesday to arrange for research study zofran prn avoid etoh, nsaids ct abdomen/pelvis in 2 weeks unless indicated otherwise colonoscopy in 6-8 weeks It was a pleasure seeing Rahul Adams. Thank you for this consult. Entered by: Kiki Martinez MD Jul 17, 2017 12:19
[2017-07-17] MEDS: ONDANSETRON HCL 4 MG/2 ML VIAL IVP PRN (13:11)
[2017-07-17] MEDS: cloNIDine HCL 0.2 MG TAB PO PRN (13:14)
== END 2017-07-17 16:06 | disposition home or self-care (01) | DRG 872 ==
LOC: PHED 15:04 → PHEDA 20:44 → PH3A 21:44
PROVIDERS: ADMIT Hospitalist; ATTEND Hospitalist
DX: A41.4 Sepsis due to anaerobes (principal); N17.9 Acute kidney failure, unspecified; A04.71 Enterocolitis due to Clostridium difficile, recurrent; K56.7 Ileus, unspecified; K63.0 Abscess of intestine; I10 Essential (primary) hypertension; E86.0 Dehydration; F41.9 Anxiety disorder, unspecified; H91.92 Unspecified hearing loss, left ear; R00.0 Tachycardia, unspecified; G40.909 Epilepsy, unspecified, not intractable, without status epilepticus; K21.9 Gastro-esophageal reflux disease without esophagitis; M19.012 Primary osteoarthritis, left shoulder; M19.011 Primary osteoarthritis, right shoulder; F12.90 Cannabis use, unspecified, uncomplicated; Z88.1 Allergy status to other antibiotic agents; Z88.5 Allergy status to narcotic agent; Z88.6 Allergy status to analgesic agent
CPT/HCPCS: 74176; 74177; 76937; 80048; 80053; 80202; 83605; 83690; 85025; 85027; 85610; 85730; 87040; 87493; 96361; 96374; 96375; 96376; J2270; J2405; J3370; J7030; J7050; Q0169; Q9963; Q9967

== ENCOUNTER 2017-08-06 12:05 | Inpatient (IN) | payer BC ==
[~2017-08-06] VITALS: Ht 175.3 cm; Wt 65.0 kg
[~2017-08-06 12:05] MED LIST changes: +CHOL4POW4 PO; +DIFI200T PO; +DILA2TAB4 PO; -PROM12.54 PO; +PROM25TA10 PO; +VANC125C3 PO
[2017-08-06 12:34] VITALS: BP 91/73; PULSE 107; RESP 21; TEMP 97.8; O2SAT 100
[2017-08-06] MEDS ORDERED: MORPHINE SULFATE 4 MG/ML INJ IV PUSH ONE (12:45)
[2017-08-06] MEDS ORDERED: SODIUM CHLOR 0.9% 1000 ML INJ 1,000 ML IV SCH (12:45)
[2017-08-06] MEDS ORDERED: SODIUM CHLORIDE 0.9% FLUSH 10 ML FLUSH IV FLUSH PRN ×2 (12:45→17:30)
[2017-08-06] MEDS ORDERED: ONDANSETRON HCL 4 MG/2 ML VIAL IVP ONE (12:45)
[2017-08-06 13:20] LABS: AUTOMATED NEUTROPHIL # 12.5 TH/MM3 (1.8-7.7); BASOPHIL % 0.3 % (0.0-2.0); EOSINOPHIL % 0.2 % (0.0-4.0); HEMATOCRIT 37.9 % (39.0-51.0); HEMOGLOBIN 12.4 GM/DL (13.0-17.0); LYMPH % 12.9 % (9.0-44.0); LYMPHOCYTE # 2.1 TH/MM3 (1.0-4.8); MEAN CELL VOLUME 81.9 FL (80.0-100.0); MEAN CORPUSCULAR HEMOGLOBIN 26.7 PG (27.0-34.0); MEAN CORPUSCULAR HGB CONC 32.6 % (32.0-36.0); MEAN PLATELET VOLUME 8.3 FL (7.0-11.0); MONO % 8.6 % (0.0-8.0); MONOCYTE # 1.4 TH/MM3 (0-0.9); PLATELET COUNT 343 TH/MM3 (150-450); RED BLOOD COUNT 4.63 MIL/MM3 (4.50-5.90); RED CELL DISTRIBUTION WIDTH 16.9 % (11.6-17.2)
[2017-08-06 13:40] LABS: ALBUMIN 3.8 GM/DL (3.4-5.0); ALT (GPT) 18 U/L (12-78); AST (GOT) 16 U/L (15-37); BICARBONATE 20.1 MEQ/L (21.0-32.0); BLOOD UREA NITROGEN 35 MG/DL (7-18); CALCIUM 8.8 MG/DL (8.5-10.1); CHLORIDE 97 MEQ/L (98-107); CREATININE 4.84 MG/DL (0.60-1.30); GLOMERULAR FILTRATION RATE 12 ML/MIN (>89); GLUCOSE,RANDOM 89 MG/DL (74-106); SODIUM (NA) 134 MEQ/L (136-145)
[2017-08-06 13:43] LABS: ALKALINE PHOSPHATASE 92 U/L (45-117); TOTAL BILIRUBIN ADULT 0.7 MG/DL (0.2-1.0); TOTAL PROTEIN 7.9 GM/DL (6.4-8.2)
[2017-08-06] MEDS ORDERED: SODIUM CHLOR 0.9% 1000 ML INJ 1,000 ML IV ONE (14:15)
[2017-08-06 14:58] LABS: BILIRUBIN, URINE SMALL (NEG); BLOOD, URINE NEG (NEG); GLUCOSE,URINE NEG (NEG); HYALINE CAST, URINE 10 /lpf (RARE); KETONE, URINE NEG (NEG); MUCUS URINE FEW /lpf (OCC); NITRITE,URINE NEG (NEG); PH, URINE 5.5 (5.0-8.5); SQUAMOUS EPITHELIAL CELL URINE 2 /hpf (0-5); URINE COLOR YELLOW (YELLW/STRAW); URINE LEUKOCYTE ESTERASE MOD (NEG)
--- NOTE | 2017-08-06 15:10 | PD ---
HPI Chief Complaint: Pain: Acute or Chronic Time Seen by Provider: 12:23 Travel History International Travel<30 days: No Contact w/Intl Traveler<30days: No Traveled to known affect area: No History of Present Illness HPI Patient is a 62 year old male who comes in complaining of diarrhea. He has history of chronic C. Diff issues and was admitted last month for the same thing. He says he was doing well until he stopped his Vancomycin and then the diarrhea returned. He says he started the Vancomycin again Wednesday, but he is still having several episodes if diarrhea per day and now has cramping of his muscles. He says he has pain to his lower abdomen, typical of the symptoms he' s had in the past with C. Diff. He also reports some nausea. He has not been on antibiotics other than the Vancomycin for the C. Diff. Severity is mild to moderate. 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 ) Asthma: No Autoimmune Disease: No Anxiety: Yes Depression: No Heart Rhythm Problems: No Cancer: No Cardiovascular Problems: Yes (HTN) High Cholesterol: No Chemotherapy: No Chest Pain: No Congestive Heart Failure: No COPD: No Cerebrovascular Accident: No Diabetes: No Diminished Hearing: Yes (L ear ) Diverticulitis: Yes Endocrine: No Gastrointestinal Disorders: Yes (diverticulitis, ) GERD: Yes Genitourinary: Yes Headaches: No Hiatal Hernia: No Heparin Induced Thrombocytopen: No Hypertension: Yes Immune Disorder: No Implanted Vascular Access Dvce: Yes Kidney Stones: No Musculoskeletal: Yes Neurologic: Yes Psychiatric: Yes Reproductive: No Respiratory: No Immunizations Current: Yes Migraines: No Pancreatitis: Yes Radiation Therapy: No Renal Failure: No Seizures: Yes (2009) Sickle Cell Disease: No Sleep Apnea: No Thyroid Disease: No Ulcer: No PNEUMOCCOCAL Vaccine (Year): 2 Past Surgical History Abdominal Surgery: No AICD: No Arteriovenous Shunt: No Body Medical Devices: DISSOLVABLE SCREW IN LEFT ANKLE - placed 2015, titanium femur Cardiac Surgery: No Ear Surgery: No Endocrine Surgery: No Eye Surgery: No Genitourinary Surgery: No Gynecologic Surgery: No Hysterectomy: No Insulin Pump: No Joint Replacement: No Neurologic Surgery: No Oral Surgery: No Pacemaker: No Thoracic Surgery: Yes Other Surgery: Yes (2 BACK AND ONE NECK SURGERIES-microdiskectomy,left achilles tendon repair) Social History Alcohol Use: Yes Tobacco Use: No Substance Use: Yes (MARIJUANA ) Allergies-Medications (Allergen,Severity, Reaction): Coded Allergies: codeine (Verified Allergy, Severe, RASH, 07/08/17) ibuprofen (Verified Allergy, Severe, Swelling, 07/08/17) of eyes levofloxacin (Verified Allergy, Severe, ACHILLES TENDON PROBLEM, 07/08/17) metronidazole (Verified Allergy, Severe, Nausea/Vomiting, 07/08/17) Reported Meds & Prescriptions Reported Meds & Active Scripts Active Vancomycin (Vancomycin HCl) 125 Mg Cap 125 Mg PO QID 75 Days Take 125 mg by mouth 4 xday for 10d then 125 mg po bid for 7d then take 125 mg QOD for 8 weeks Dilaudid (Hydromorphone HCl) 2 Mg Tab 2 Mg PO Q4H PRN Reported Lisinopril 20 Mg Tab 20 Mg PO DAILY Amlodipine (Amlodipine Besylate) 5 Mg Tab 5 Mg PO DAILY Xanax (Alprazolam) 0.5 Mg Tab 0.5 Mg PO Q12HR PRN Review of Systems Except as stated in HPI: all other systems reviewed are Neg General / Constitutional: No: Fever, Chills HENT: No: Headaches, Lightheadedness Cardiovascular: No: Chest Pain or Discomfort Respiratory: No: Shortness of Breath Gastrointestinal: Positive: Nausea, Diarrhea, Abdominal Pain, No: Vomiting Genitourinary: No: Dysuria Musculoskeletal: No: Myalgias Skin: No Rash, No Change in Pigmentation Neurologic: No: Weakness, Dizziness Physical Exam Narrative GENERAL: Awake and alert, in no acute distress. SKIN: Focused skin assessment warm/dry. HEAD: Atraumatic. Normocephalic. EYES: Pupils equal and round. No scleral icterus. ENT: Mucous membranes pink and moist. NECK: Trachea midline. No JVD. CARDIOVASCULAR: Regular rate and rhythm. No murmur appreciated. RESPIRATORY: No accessory muscle use. Clear to auscultation. Breath sounds equal bilaterally. GASTROINTESTINAL: Abdomen soft, nondistended. Tender to palpation across the lower abdomen. No rebound or guarding. MUSCULOSKELETAL: No obvious deformities. No clubbing. No cyanosis. No edema. NEUROLOGICAL: Awake and alert. No obvious cranial nerve deficits. Motor grossly within normal limits. Normal speech. PSYCHIATRIC: Appropriate mood and affect; insight and judgment normal. Data Data Last Documented VS Vital Signs Date Time Temp Pulse Resp B/P (MAP) Pulse Ox O2 Delivery O2 Flow Rate FiO2 08/06/17 15:13 104 23 96/74 (81) 98 Room Air 08/06/17 12:34 97.8 Orders Orders Complete Blood Count With Diff (08/06/17 12:45) Comprehensive Metabolic Panel (08/06/17 12:45) Prothrombin Time / Inr (Pt) (08/06/17 12:45) Act Partial Throm Time (Ptt) (08/06/17 12:45) Urinalysis - C+S If Indicated (08/06/17 12:45) Iv Access Insert/Monitor (08/06/17 12:45) Ecg Monitoring (08/06/17 12:45) Oximetry (08/06/17 12:45) Morphine Inj (Morphine Inj) (08/06/17 12:45) Ondansetron Inj (Zofran Inj) (08/06/17 12:45) Sodium Chlor 0.9% 1000 Ml Inj (Ns 1000 M (08/06/17 12:45) Sodium Chloride 0.9% Flush (Ns Flush) (08/06/17 12:45) C Diff Toxin Pcr (08/06/17 12:45) Sodium Chlor 0.9% 1000 Ml Inj (Ns 1000 M (08/06/17 14:15) Urine Culture (08/06/17 14:10) Admit Order (Ed Use Only) (08/06/17 ) Labs Laboratory Tests Test 08/06/17 12:55 08/06/17 13:13 08/06/17 14:10 08/06/17 14:23 White Blood Count 16.0 TH/MM3 Red Blood Count 4.63 MIL/MM3 Hemoglobin 12.4 GM/DL Hematocrit 37.9 % Mean Corpuscular Volume 81.9 FL Mean Corpuscular Hemoglobin 26.7 PG Mean Corpuscular Hemoglobin Concent 32.6 % Red Cell Distribution Width 16.9 % Platelet Count 343 TH/MM3 Mean Platelet Volume 8.3 FL Neutrophils (%) (Auto) 78.0 % Lymphocytes (%) (Auto) 12.9 % Monocytes (%) (Auto) 8.6 % Eosinophils (%) (Auto) 0.2 % Basophils (%) (Auto) 0.3 % Neutrophils # (Auto) 12.5 TH/MM3 Lymphocytes # (Auto) 2.1 TH/MM3 Monocytes # (Auto) 1.4 TH/MM3 Eosinophils # (Auto) 0.0 TH/MM3 Basophils # (Auto) 0.0 TH/MM3 CBC Comment DIFF FINAL Differential Comment Prothrombin Time 10.0 SEC Prothromb Time International Ratio 1.0 RATIO Activated Partial Thromboplast Time 24.5 SEC Blood Urea Nitrogen 35 MG/DL Creatinine 4.84 MG/DL Random Glucose 89 MG/DL Total Protein 7.9 GM/DL Albumin 3.8 GM/DL Calcium Level 8.8 MG/DL Alkaline Phosphatase 92 U/L Aspartate Amino Transf (AST/SGOT) 16 U/L Alanine Aminotransferase (ALT/SGPT) 18 U/L Total Bilirubin 0.7 MG/DL Sodium Level 134 MEQ/L Potassium Level 4.8 MEQ/L Chloride Level 97 MEQ/L Carbon Dioxide Level 20.1 MEQ/L Anion Gap 17 MEQ/L Estimat Glomerular Filtration Rate 12 ML/MIN Lipase 245 U/L Urine Color YELLOW Urine Turbidity HAZY Urine pH 5.5 Urine Specific [place] 1.017 Urine Protein 30 mg/dL Urine Glucose (UA) NEG mg/dL Urine Ketones NEG mg/dL Urine Occult Blood NEG Urine Nitrite NEG Urine Bilirubin SMALL Urine Urobilinogen LESS THAN 2.0 MG/DL Urine Leukocyte Esterase MOD Urine WBC 10 /hpf Urine Squamous Epithelial Cells 2 /hpf Urine Hyaline Casts 10 /lpf Urine Mucus FEW /lpf Microscopic Urinalysis Comment CULTURE INDICATED Urine Random Sodium 20 MEQ/L Urine Opiates Screen NEG Urine Barbiturates Screen NEG Urine Amphetamines Screen NEG Urine Benzodiazepines Screen POS Urine Cocaine Screen NEG Urine Cannabinoids Screen POS Test 08/06/17 15:10 Stool C. difficile Toxin (PCR) NEGATIVE Stl C. difficile Toxin Epiderm 027 PRESUMPTIVE NEGATIVE MDM Medical Decision Making Medical Screen Exam Complete: Yes Emergency Medical Condition: Yes Medical Record Reviewed: Yes Differential Diagnosis C. difficile versus dehydration versus electrolyte abnormality Narrative Course Patient is a 62-year-old male who comes in complaining of diarrhea and dehydration. Exam shows lower abdominal tenderness. IV established, labs sent. Labs concerning for a creatinine of 4.8, which is much increased from last month when it was less than 1. Patient given IV fluids, pain medicine. He will be admitted for further management. Diagnosis Primary Impression: Acute kidney injury Additional Impression: Dehydration Admitting Information Admitting Physician Requests: Admit Sheila Gottlieb MD Aug 06, 2017 15:10
[2017-08-06 15:13] VITALS: BP 96/74; PULSE 104; RESP 23; O2SAT 98
[2017-08-06 16:31] VITALS: BP 103/63; PULSE 104; RESP 21; O2SAT 99
--- NOTE | 2017-08-06 16:31 | HHI.HP ---
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 He was discharged from [facility] 07/17 on PO Vanco and was seeing GI . He was feeling better and stools were forming again. He was taken off the Vanco last weekend as part of the research study and he started having extreme diarrhea. His stools again came back positive again for C.Diff so he was started again on Vanco on Wednesday 08/02. Wednesday was explosive diarrhea then it turned watery with only a little formed stool. He continued to have diarrhea although it slowed down and he was hydrating. He started to have cramping 2 days ago that got progressively worse. He has never had cramping like that before. He also would stand up to go to the bathroom and felt like he was going to pass out. He was drinking Pedialyte and electrolyte rdz with no alleviation of sx. He vomited 1x last night and continued to have nausea. He feels better after the Zofran in the ED. He denies any CP/SOB/dizzyness. Today' s BM had "mud" in it. He had 10 episodes of diarrhea today. On previous hospital admission: This C. difficile diarrhea was quite severe and patient required extensive modifications and therapy and pain control and antiemetics. Finally his stool consistency improved in frequency improved. Patient was dehydrated and required days of IV hydration and was unable to keep food down. He was seen by gastroenterology in consultation. Regimen was finally found it was appropriate for him and beneficial for his recovery. He was discharged home. CT abdomen/ pelvis done on 07/14 revealing small sigmoid abscess and requesting follow-up in 2 weeks. Review of Systems Constitutional: COMPLAINS OF: Weight loss, Change in appetite (decreased, NPO since Wednesday, no appetite but was gaining weight back originally at d/c), DENIES : Dizziness Endocrine: DENIES: Polyuria Eyes: DENIES: Diplopia, Vision loss Ears, nose, mouth, throat: DENIES: Oral lesions, Throat pain Respiratory: DENIES: Cough, Wheezing, Hemoptysis Cardiovascular: DENIES: Syncope, Dyspnea on Exertion Gastrointestinal: DENIES: Black stools, Bloody stools Genitourinary: DENIES: Urinary incontinence, Urgency Musculoskeletal: DENIES: Back pain Integumentary: DENIES: Rash Neurologic: DENIES: Headache, Seizures Psychiatric: DENIES: Hallucinations Past Family Social History Past Medical History Arthritis. Insomnia Previous history of C-difficile. History of diverticulitis. Reflux disease. Hypertension. 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 Seizure disorder per chart review Past Surgical History Previous EGD. Colonoscopies - says he has had 6? last time only rectum; 1 polyp and hemorrhoids Ankle surgery. Neck surgery. 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 Very chatty and does not appear to be in pain SKIN: No rashes, ecchymoses or lesions. Cool and dry. HEAD: Atraumatic. Normocephalic. No temporal or scalp tenderness. EYES: Pupils equal round and reactive. Extraocular motions intact. No scleral icterus. No injection or drainage. ENT: Nose without bleeding, purulent drainage or septal hematoma. Throat without erythema, tonsillar hypertrophy or exudate. Uvula midline. Airway patent. NECK: Trachea midline. No JVD or lymphadenopathy. Supple, nontender, no meningeal signs. CARDIOVASCULAR: Regular rate and rhythm without murmurs, gallops, or rubs. RESPIRATORY: Clear to auscultation. Breath sounds equal bilaterally. No wheezes , rales, or rhonchi. GASTROINTESTINAL: Abdomen soft, palpation of suprapubic region and lower abdomen , nondistended. No hepato-splenomegaly, or palpable masses. No guarding. No peritoneal signs MUSCULOSKELETAL: Extremities without clubbing, cyanosis, or edema. No joint tenderness, effusion, or edema noted. No calf tenderness. Negative Homans sign bilaterally. NEUROLOGICAL: Awake and alert. Cranial nerves II through XII intact. Motor and sensory grossly within normal limits. Five out of 5 muscle strength in all muscle groups. Normal speech. Laboratory Laboratory Tests Test 08/06/17 12:55 08/06/17 14:10 08/06/17 15:10 White Blood Count 16.0 Red Blood Count 4.63 Hemoglobin 12.4 Hematocrit 37.9 Mean Corpuscular Volume 81.9 Mean Corpuscular Hemoglobin 26.7 Mean Corpuscular Hemoglobin Concent 32.6 Red Cell Distribution Width 16.9 Platelet Count 343 Mean Platelet Volume 8.3 Neutrophils (%) (Auto) 78.0 Lymphocytes (%) (Auto) 12.9 Monocytes (%) (Auto) 8.6 Eosinophils (%) (Auto) 0.2 Basophils (%) (Auto) 0.3 Neutrophils # (Auto) 12.5 Lymphocytes # (Auto) 2.1 Monocytes # (Auto) 1.4 Eosinophils # (Auto) 0.0 Basophils # (Auto) 0.0 CBC Comment DIFF FINAL Differential Comment Prothrombin Time 10.0 Prothromb Time International Ratio 1.0 Activated Partial Thromboplast Time 24.5 Blood Urea Nitrogen 35 Creatinine 4.84 Random Glucose 89 Total Protein 7.9 Albumin 3.8 Calcium Level 8.8 Alkaline Phosphatase 92 Aspartate Amino Transf (AST/SGOT) 16 Alanine Aminotransferase (ALT/SGPT) 18 Total Bilirubin 0.7 Sodium Level 134 Potassium Level 4.8 Chloride Level 97 Carbon Dioxide Level 20.1 Anion Gap 17 Estimat Glomerular Filtration Rate 12 Urine Color YELLOW Urine Turbidity HAZY Urine pH 5.5 Urine Specific [place] 1.017 Urine Protein 30 Urine Glucose (UA) NEG Urine Ketones NEG Urine Occult Blood NEG Urine Nitrite NEG Urine Bilirubin SMALL Urine Urobilinogen LESS THAN 2.0 Urine Leukocyte Esterase MOD Urine WBC 10 Urine Squamous Epithelial Cells 2 Urine Hyaline Casts 10 Urine Mucus FEW Microscopic Urinalysis Comment CULTURE INDICATED Date/Time Source Procedure Growth Status 08/06/17 14:10 Urine Clean Catch Urine Culture Pending Received Result Diagram: 08/06/17 1255 08/06/17 1255 Caprin VTE Risk Assessment Caprini VTE Risk Assessment: No/Low Risk (score <= 1) Caprini Risk Assessment Model Point Value = 1 Point Value = 2 Point Value = 3 Point Value = 5 Age 41-60 Minor surgery BMI > 25 kg/m2 Swollen legs Varicose veins or History of unexplained or recurrent spontaneous Oral contraceptives or hormone replacement Sepsis (< 1 month) Serious lung disease, including pneumonia (< 1 month) Abnormal pulmonary function Acute myocardial infarction Congestive heart failure (< 1 month) History of inflammatory bowel disease Medical patient at bed rest Age 61-74 Arthroscopic surgery Major open surgery (> 45 min) Laparoscopic surgery (> 45 min) Malignancy Confined to bed (> 72 hours) Immobilizing plaster cast Central venous access Age >= 75 History of VTE Family history of VTE Factor V Leiden Prothrombin [id number] Lupus anticoagulant Anticardiolipin antibodies Elevated serum homocysteine Heparin-induced thrombocytopenia Other congenital or acquired thrombophilia Stroke (< 1 month) Elective arthroplasty Hip, pelvis, or leg fracture Acute spinal cord injury (< 1 month) Prophylaxis Regimen Total Risk Factor Score Risk Level Prophylaxis Regimen 0-1 Low Early ambulation 2 Moderate Order ONE of the following: *Sequential Compression Device (SCD) *Heparin 5000 units SQ BID 3-4 Higher Order ONE of the following medications: *Heparin 5000 units SQ TID *Enoxaparin/Lovenox 40 mg SQ daily (WT < 150 kg, CrCl > 30 mL/min) *Enoxaparin/Lovenox 30 mg SQ daily (WT < 150 kg, CrCl > 10-29 mL/min) *Enoxaparin/Lovenox 30 mg SQ BID (WT < 150 kg, CrCl > 30 mL/min) AND/OR *Sequential Compression Device (SCD) 5 or more Highest Order ONE of the following medications: *Heparin 5000 units SQ TID (Preferred with Epidurals) *Enoxaparin/Lovenox 40 mg SQ daily (WT < 150 kg, CrCl > 30 mL/min) *Enoxaparin/Lovenox 30 mg SQ daily (WT < 150 kg, CrCl > 10-29 mL/min) *Enoxaparin/Lovenox 30 mg SQ BID (WT < 150 kg, CrCl > 30 mL/min) AND *Sequential Compression Device (SCD) Assessment and Plan Assessment and Plan This patient is a 62-year-old man, history of chronic C. difficile infection requiring hospitalization, diverticulitis, alcoholic pancreatitis, presents with recurrent diarrhea and severe dehydration. On previous hospital admission: This C. difficile diarrhea was quite severe and patient required extensive modifications and therapy and pain control and antiemetics. Finally his stool consistency improved in frequency improved. Patient was dehydrated and required days of IV hydration and was unable to keep food down. He was seen by gastroenterology in consultation. Regimen was finally found it was appropriate for him and beneficial for his recovery. He was discharged home. CT abdomen/ pelvis done on 07/14 revealing small sigmoid abscess and requesting follow-up in 2 weeks. Code Status Full Code Problem List: (1) Chronic diarrhea ICD Codes: K52.9 - Noninfective gastroenteritis and colitis, unspecified Status: Chronic Plan: History of C. difficile very difficult to manage by GI on last admission Follows up closely with , previous discussions of fecal transplant f/u with GI consult: - Will further determine if pt is to remain on PO Vanc or other abx considering negative C.Diff and SHAVONNE f/u abdominal XRAY to r/o toxic megacolon (hx of C.Diff, IBD) C.Diff negative Stop PO Vanc regimen (2) SIRS (systemic inflammatory response syndrome) ICD Codes: R65.10 - Systemic inflammatory response syndrome (SIRS) of non- infectious origin without acute organ dysfunction Status: Acute Plan: Vitals at this admission are drastically different from vitals admission in June Tachycardic on admission with heart rate of 107 Blood pressure borderline low at 91/73 WBC of 16 UA: Moderate leuk esterase, negative nitrite Cover empirically with Aztreonam 2g IV q8h to cover Gram negatives (avoiding zosyn due to SHAVONNE) f/u Ucx f/u blood cx f/u vitals CXR: Negative for consolidation Lactic acid N (3) Severe dehydration ICD Codes: E86.0 - Dehydration Status: Acute Plan: Volume depletion from vomiting and diarrhea Sx of hypovolemia; postural hypotension, elevated Creat and BUN Will monitor VS for sx of hypovolemia f/u urine output f/u mental status f/u urine Na f/u renal u/s for underlying medical renal disease s/p 1L bolus x 2 in ED Add IVF at 1.5maintenance (150mls/hr) (4) Abdominal pain ICD Codes: R10.9 - Unspecified abdominal pain Status: Acute Plan: Lower abdominal pain, chronic diarrhea, vomit x 2 Differential includes UTI vs. dehydration sx vs. infectious diarrhea vs. abdominal pathology (hx of of pancreatitis) f/u Uculture Cover w/ ABX for urinary tract source of sepsis; aztreonam 2 g IV every 8 hours f/u progress with hydration C.Diff negative f/u stool cx d/c home PO vanc for SHAVONNE CMP WNL Lipase WNL (5) Abscess of sigmoid colon ICD Codes: K63.0 - Abscess of intestine Status: Chronic Plan: CT w/ IV contrast 07/14: shows small sigmoid abscess Caution with contrast with SHAVONNE Will consider repeat CT if clinically worsening or suspicion for abscess growth/ rupture f/u GI recs CT 07/14/2017: 2.3 x 1.5 cm rim-enhancing fluid collection the distal sigmoid colonic wall, possibly a small abscess of other significant inflammatory change is identified in the surrounding soft tissues. There is sigmoid diverticulosis. Small hiatal hernia. Biliary ductal dilatation to 12 mm. No free fluid or free air. (6) Acute renal failure ICD Codes: N17.9 - Acute kidney failure, unspecified Status: Acute Plan: Creat 4.84 on admission (from 1.10) Differential includes SHAVONNE from severe dehydration vs. vancomycin-induced Improved to 4.37 after 2 boluses in ED f/u urine Na f/u kidney u/s d/c Vanc (7) Alcohol abuse ICD Codes: F10.10 - Alcohol abuse, uncomplicated Status: Acute Plan: f/u Utox CIWA protocol (8) Hypertension ICD Codes: I10 - Essential (primary) hypertension Status: Chronic Plan: Borderline hypotension on admission Hold home BP meds (9) fen/ppx Status: Chronic Plan: Fluids: IV fluids at 1.5 maintenance Electrolytes: BMP WNL, f/u repeat BMP in AM Nutrition: PO diet GI ppx: not indicated dvt ppx: SCDs only, will re-assess risk factors for VTE tomorrow / ensure there is no abdominal pathology Physician Certification 2 Midnight Certification Type: Admission for Inpatient Services Order for Inpatient Services The services are ordered in accordance with Medicare regulations or non- Medicare payer requirements, as applicable. In the case of services not specified as inpatient-only, they are appropriately provided as inpatient services in accordance with the 2-midnight benchmark. Estimated LOS (days): 2 days is the estimated time the patient will need to remain in the hospital, assuming treatment plan goals are met and no additional complications. Post-Hospital Plan: Home Annika Colon MD R2 Aug 06, 2017 16:31
[2017-08-06] MEDS ORDERED: LORazepam 2 MG/ML VIAL IV PUSH PRN ×4 (17:30)
[2017-08-06] MEDS ORDERED: FLUMAZENIL 0.5 MG/5 ML VIAL IV PUSH PRN (17:30)
[2017-08-06] MEDS ORDERED: ONDANSETRON HCL 4 MG/2 ML VIAL IVP PRN (17:30)
[2017-08-06] MEDS ORDERED: NALOXONE HCL 0.4 MG/ML AMP IV PUSH PRN ×2 (17:30→22:45)
[2017-08-06] MEDS ORDERED: LORazepam 2 MG TAB PO PRN (17:30)
[2017-08-06] MEDS ORDERED: LORazepam 1 MG TAB PO PRN (17:30)
[2017-08-06] MEDS ORDERED: ZOLPIDEM TARTRATE 5 MG TAB PO PRN (17:30)
[2017-08-06] MEDS ORDERED: ACETAMINOPHEN 325 MG TAB PO PRN ×2 (17:30→22:45)
--- NOTE | 2017-08-06 18:48 | RADRPT ---
EXAM DATE/TIME: 08/06/2017 18:06 [facility] COMPARISON: CHEST SINGLE AP, December 09, 2016, 20:08. INDICATIONS : Atelectasis. C-diff. MEDICAL HISTORY : Hypertension. Diverticulitis. Pancreatitis. SURGICAL HISTORY : Discectomy, lumbar. ENCOUNTER: Initial ACUITY: 1 day PAIN SCORE: 0/10 LOCATION: Bilateral chest FINDINGS: A single view of the chest demonstrates the lungs to be symmetrically aerated without evidence of mas s, infiltrate or effusion. The cardiomediastinal contours are unremarkable. Osseous structures are intact. Remote left rib fractures. CONCLUSION: 1. No acute findings. Minimal basal atelectasis or scarring. Remote left rib fractures. Efren Ca MD on August 06, 2017 at 18:44 Board Certified Radiologist. This report was verified electronically.
[2017-08-06 18:57] LABS: BICARBONATE 20.6 MEQ/L (21.0-32.0); CALCIUM 7.6 MG/DL (8.5-10.1); CREATININE 4.37 MG/DL (0.60-1.30)
[2017-08-06 19:03] VITALS: BP 100/69; PULSE 98; RESP 11; O2SAT 98
[2017-08-06] MEDS: SODIUM CHLOR 0.9% 1000 ML INJ 1,000 ML IV SCH (19:11)
[2017-08-06] MEDS ORDERED: AZTREONAM INJ 2,000 MG in SODIUM CHLORIDE 0.9% INJ 100 ML IV SCH (19:30)
[2017-08-06] MEDS ORDERED: Gentamicin Consult Pharmacy 1 EA OTHER SCH (19:30)
[2017-08-06 20:00] VITALS: BP 99/57; PULSE 98; RESP 18; TEMP 97.4; O2SAT 96
[2017-08-06] MEDS: SODIUM CHLORIDE 0.9% FLUSH 10 ML FLUSH IV FLUSH SCH (21:00)
[2017-08-06] MEDS ORDERED: GENTAMICIN INJ 80 MG in SODIUM CHLORIDE 0.9% INJ 100 ML IV ONE ×2 (22:00→22:15)
[2017-08-06] MEDS ORDERED: GENTAMICIN/SOD CHL 80 MG/100 ML IV ONE (22:00)
[2017-08-06] MEDS ORDERED: KETOROLAC TROMETHAMINE 30 MG/ML (IVP) VIAL IV PUSH PRN (22:45)
--- NOTE | 2017-08-06 22:45 | RADRPT ---
EXAM DATE/TIME: 08/06/2017 22:01 [facility] COMPARISON: US KIDNEY/RENAL/BLADDER, October 03, 2014, 9:28. INDICATIONS : Increased BUN/Creatinine. MEDICAL HISTORY : Hypertension. Gastroesophageal reflux disease. Seizures. C-diff. Diverticulitis. Pancreatitis. Arth ritis. Anxiety. SURGICAL HISTORY : Left ear surgery. Chest surgery. Achilles tendon surgery. Neck surgery. ENCOUNTER: Subsequent ACUITY: 1 day PAIN SCORE: 0/10 LOCATION: Bilateral flank MEASUREMENTS: RIGHT KIDNEY: 9.5 x 5.1 x 5.2 cm LEFT KIDNEY: 10.9 x 5.8 x 5.4 cm COMPLETE APPROPRIATE ITEMS PRE PROCEDURE: ID x 2: Complete NameDate of BirthPatient Name Band Education: Nurse/Technologist explained proce dure to patient/family. Patient/family demonstrates understanding of procedure. FINDINGS: RIGHT KIDNEY: Renal cortex is normal in thickness and has slightly increased echotexture. No hydronephrosis, stone , or mass. LEFT KIDNEY: Renal cortex is normal in thickness and has slightly increased echotexture. No hydronephrosis, stone , or mass. 1.9 cm cyst lower pole. BLADDER: Within normal limits given the degree of distension. CONCLUSION: 1. Mildly increased renal echogenicity characteristic of mild medical renal disease. Small left renal cyst. Efren Ca MD on August 06, 2017 at 22:42 Board Certified Radiologist. This report was verified electronically.
[2017-08-06] MEDS: PANTOPRAZOLE SOD 40 MG DELAYED RELEASE TAB PO SCH (22:56)
[2017-08-06] MEDS: AZTREONAM 1,000 MG/NS 100 ML IV SCH ×2 (23:30)
[2017-08-06] MEDS: ALPRAZolam 0.5 MG TAB PO PRN (23:31)
[2017-08-06] MEDS: KETOROLAC TROMETHAMINE 30 MG/ML (IVP) VIAL IV PUSH PRN (23:31)
--- NOTE | 2017-08-06 23:31 | RADRPT ---
EXAM DATE/TIME: 08/06/2017 23:05 [facility] COMPARISON: ABDOMEN FLAT & UPRIGHT, April 16, 2017, 23:10. INDICATIONS : Abdominal pain, vomiting for 24 hours MEDICAL HISTORY : Hypertension. Diverticulitis. Pancreatitis SURGICAL HISTORY : Discectomy, lumbar ENCOUNTER: Initial ACUITY: 1 day PAIN SCORE: 8/10 LOCATION: Bilateral abdomen FINDINGS: Examination of the abdomen demonstrates gaseous distention of the small bowel with air fluid levels m ost consistent with ileus .There are no findings of small bowel obstruction. No free air is identifie d. No organomegaly is evident. CONCLUSION: 1. Mild small bowel ileus. Cirilo Maciel MD on August 06, 2017 at 23:17 Board Certified Radiologist. This report was verified electronically.
[2017-08-07] VITALS (8 sets, daily range): BP systolic 109–145; BP diastolic 68–91; PULSE 83–106; RESP 17–20; TEMP 97.1–98.4; O2SAT 96–100
[2017-08-07] MEDS: SODIUM CHLOR 0.9% 1000 ML INJ 1,000 ML IV SCH ×4 (01:28→20:29)
[2017-08-07 05:35] LABS: AUTOMATED NEUTROPHIL # 7.8 TH/MM3 (1.8-7.7); BASOPHIL # 0.1 TH/MM3 (0-0.2); BASOPHIL % 0.6 % (0.0-2.0); EOSINOPHIL # 0.1 TH/MM3 (0-0.4); EOSINOPHIL % 1.3 % (0.0-4.0); HEMATOCRIT 28.8 % (39.0-51.0); HEMOGLOBIN 9.4 GM/DL (13.0-17.0); LYMPH % 18.3 % (9.0-44.0); MEAN CELL VOLUME 82.4 FL (80.0-100.0); MEAN CORPUSCULAR HEMOGLOBIN 26.9 PG (27.0-34.0); MEAN CORPUSCULAR HGB CONC 32.6 % (32.0-36.0); MEAN PLATELET VOLUME 7.7 FL (7.0-11.0); MONO % 9.1 % (0.0-8.0); NEUT % 70.7 % (16.0-70.0); PLATELET COUNT 246 TH/MM3 (150-450); RED BLOOD COUNT 3.49 MIL/MM3 (4.50-5.90); RED CELL DISTRIBUTION WIDTH 16.3 % (11.6-17.2)
[2017-08-07] MEDS: AZTREONAM 1,000 MG/NS 100 ML IV SCH ×2 (05:50)
[2017-08-07] MEDS: KETOROLAC TROMETHAMINE 30 MG/ML (IVP) VIAL IV PUSH PRN (05:50)
[2017-08-07 06:14] LABS: ALBUMIN 2.8 GM/DL (3.4-5.0); ALKALINE PHOSPHATASE 66 U/L (45-117); ALT (GPT) 13 U/L (12-78); AST (GOT) 11 U/L (15-37); BLOOD UREA NITROGEN 39 MG/DL (7-18); CALCIUM 7.5 MG/DL (8.5-10.1); CHLORIDE 109 MEQ/L (98-107); CREATININE 4.05 MG/DL (0.60-1.30); GLOMERULAR FILTRATION RATE 15 ML/MIN (>89); GLUCOSE,RANDOM 102 MG/DL (74-106); SODIUM (NA) 138 MEQ/L (136-145); TOTAL BILIRUBIN ADULT 0.3 MG/DL (0.2-1.0); TOTAL PROTEIN 5.9 GM/DL (6.4-8.2)
[2017-08-07 06:18] LABS: RANDOM GENTAMICIN LESS THAN 0.2 MCG/ML
--- NOTE | 2017-08-07 07:43 | HHI.FPPN ---
Subjective Remarks Patient seen, examined, and discussed with resident team. This note is written in conjunction with H&P dated 08/06/17. Rahul Adams is a 62yo gentleman with h/o recurrent C Diff colitis. He had been recently hospitalized, from 07/08 to 07/17, for C Diff colitis, which was treated with PO Vancomycin and Dificid, discharged on oral vancomycin. His stools became more formed, and he was subsequently taken off Vancomycin, in anticipation of a research study. He then had recurrence of symptoms, with abdominal cramping and diarrhea, and repeat testing (per pt report) was positive for recurrence of C Diff. He resumed oral vancomycin on 08/02/17, but continued to have symptoms. This morning, he reports he is feeling great. He denies significant abdominal cramping. He had a bowel movement last night, which was "mushy" and more formed. He is passing gas. He tolerated dinner last night without incident. He is making urine, which is described as yellow and noncloudy, without odor or blood. ROS: As above and as per resident H&P dated 08/06/17. PMH/PSxH/SocHx/FamHx: Per resident H&P dated 08/06/17. Significant for C diff colitis, possible colonic abscess seen on 06/2017 CT abdomen with contrast, pancreatitis, diverticulitis, GERD. Objective Vitals Vital Signs Date Time Temp Pulse Resp B/P (MAP) Pulse Ox O2 Delivery O2 Flow Rate FiO2 08/07/17 04:00 97.7 85 18 109/68 (82) 96 08/07/17 00:00 97.4 106 20 126/77 (93) 96 08/06/17 20:00 97.4 98 18 99/57 (71) 96 08/06/17 19:31 21 08/06/17 19:03 98 11 100/69 (79) 98 Room Air 08/06/17 16:31 104 21 103/63 (76) 99 Room Air 08/06/17 15:13 104 23 96/74 (81) 98 Room Air 08/06/17 12:34 97.8 107 21 91/73 (79) 100 I/O 08/06/17 08/06/17 08/06/17 08/07/17 08/07/17 08/07/17 07:00 15:00 23:00 07:00 15:00 23:00 Intake Total 2000 ml 1100 ml Output Total 200 ml Balance 2000 ml 900 ml Intake IV Total 2000 ml 1100 ml Output Urine Total 200 ml # Voids 2 # Bowel Movements 1 Result Diagram: 08/07/17 0508 08/07/17 0508 Objective Remarks Per resident H&P dated 08/06/17. In NAD, no resp distress, nontoxic. Ambulating room without difficulty. CTAB. +BS, soft, nontender, nondistended. No CVAT. No jaundice. A/P Assessment and Plan This patient is a 62-year-old man, history of chronic C. difficile infection requiring hospitalization, diverticulitis, alcoholic pancreatitis, presents with recurrent diarrhea and severe dehydration. On previous hospital admission: This C. difficile diarrhea was quite severe and patient required extensive modifications and therapy and pain control and antiemetics. Finally his stool consistency improved in frequency improved. Patient was dehydrated and required days of IV hydration and was unable to keep food down. He was seen by gastroenterology in consultation. Regimen was finally found it was appropriate for him and beneficial for his recovery. He was discharged home. CT abdomen/ pelvis done on 07/14 revealing small sigmoid abscess and requesting follow-up in 2 weeks. Attending Attestation The patient has been seen and examined. The chart and all resident notes have been reviewed. I agree that inpatient care is appropriate and that a two midnight stay is expected for the reasons documented in the resident history and physical. I have discussed this with the resident and certify the resident s order for inpatient admission. Problem List: (1) Acute renal failure ICD Codes: N17.9 - Acute kidney failure, unspecified Status: Acute Plan: Creat 4.84 on admission (up from 1.10 last month). Improved overnight with IV fluid. Differential includes SHAVONNE from severe dehydration vs. vancomycin-induced Renal US: Mild medicorenal disease. Urine sodium normal. Monitor Is/Os. Provide IVF. (2) Chronic diarrhea ICD Codes: K52.9 - Noninfective gastroenteritis and colitis, unspecified Status: Chronic Plan: History of C. difficile very difficult to manage by GI on last admission 06/2017; although C Diff negative on 08/06/17. GI has been consulted; pt reports seeing Dr Kennedy as an outpatient and discussing fecal transplant. Continue oral vancomycin taper. Add Probiotics. Stop PPI, as it can cause C Diff associated diarrhea. X-ray demonstrates possible mild ileus, but pt reports + flatus, + more formed stool, and patient tolerating PO. (3) SIRS (systemic inflammatory response syndrome) ICD Codes: R65.10 - Systemic inflammatory response syndrome (SIRS) of non- infectious origin without acute organ dysfunction Status: Resolved Plan: Vitals at this admission are drastically different from vitals admission in June Tachycardic on admission with heart rate of 107 Blood pressure borderline low at 91/73 WBC of 16 -> resolved UA: Moderate leuk esterase, negative nitrite. Await UCx. Pt provided Aztreonam for empiric coverage of UTI; will hold this medication until UCx resulted, to avoid recurrence/worsening of C Diff diarrhea. UCx: Pending Blood Cx: pending CXR: Negative for consolidation Lactic acid: normal (4) Severe dehydration ICD Codes: E86.0 - Dehydration Status: Acute Plan: Volume depletion from vomiting and diarrhea Sx of hypovolemia; postural hypotension, elevated Creat and BUN Will monitor VS for sx of hypovolemia f/u urine output; monitor Is/Os. s/p 1L bolus x 2 in ED Continue IVF at 1.5maintenance (150mls/hr) (5) Abdominal pain ICD Codes: R10.9 - Unspecified abdominal pain Status: Resolved Plan: Lower abdominal pain, chronic diarrhea, vomit x 2 Differential includes UTI vs. dehydration sx vs. infectious diarrhea vs. abdominal pathology (hx of of pancreatitis) f/u Uculture C.Diff negative Follow up other stool studies. CMP WNL Lipase WNL (6) Abscess of sigmoid colon ICD Codes: K63.0 - Abscess of intestine Status: Chronic Plan: CT w/ IV contrast 07/14: shows small sigmoid abscess CT was due to be repeated in 2 weeks; will hold off on repeat CT at this time, as pt denies abdominal pain and has Acute renal failure. CT abdomen/pelvis 07/14/2017: 2.3 x 1.5 cm rim-enhancing fluid collection the distal sigmoid colonic wall, possibly a small abscess of other significant inflammatory change is identified in the surrounding soft tissues. There is sigmoid diverticulosis. Small hiatal hernia. Biliary ductal dilatation to 12 mm. No free fluid or free air. (7) Alcohol abuse ICD Codes: F10.10 - Alcohol abuse, uncomplicated Status: Chronic Plan: [facility] protocol Urine toxicology positive for marijuana and benzos (He is prescribed Xanax). (8) Hypertension ICD Codes: I10 - Essential (primary) hypertension Status: Chronic Plan: BP was low at admission, and home medications have been held. Resume home meds, as BP has increased. (9) Hypochromic anemia ICD Codes: D50.9 - Iron deficiency anemia, unspecified Status: Chronic Plan: This appears to be at patient's baseline, upon chart review. Pt denies blood in stool; hemodynamically stable. Check hemoccult stool. (10) fen/ppx Status: Chronic Plan: Fluids: IV fluids at 1.5 maintenance Electrolytes: BMP WNL Nutrition: PO diet GI ppx: hold off on PPI, due to C Diff dvt ppx: SCDs. Problem Qualifiers (1) Hypertension: Qualified Codes: I10 - Essential (primary) hypertension Susan Pascal MD Aug 07, 2017 07:43
[2017-08-07] MEDS ORDERED: ACETAMINOPHEN 1000 MG/100 ML 100 ML IV PRN (08:00)
[2017-08-07] MEDS ORDERED: LISINOPRIL 20 MG TAB PO SCH (09:00)
[2017-08-07] MEDS ORDERED: amLODIPine BESYLATE 5 MG TAB PO SCH (09:00)
[2017-08-07] MEDS: SODIUM CHLORIDE 0.9% FLUSH 10 ML FLUSH IV FLUSH SCH ×2 (09:27→20:28)
[2017-08-07] MEDS: LACTULOSE SYRUP 20 GM/30 ML CUP PO SCH (09:27)
[2017-08-07] MEDS: VANCOMYCIN 500 MG VIAL (FOR ORAL USE ONLY) PO SCH ×4 (09:29→20:28)
[2017-08-07] MEDS: PANTOPRAZOLE SOD 40 MG DELAYED RELEASE TAB PO SCH (09:30)
[2017-08-07] MEDS: LACTOBACILLUS ACIDOPHILUS 1 GM PACKET PO SCH ×2 (12:50→17:00)
--- NOTE | 2017-08-07 16:22 | MB ---
cc: James Kennedy MD DATE: 08/07/2017 REASON FOR GASTROENTEROLOGY CONSULTATION: Evaluation of recurrent Clostridium difficile. HISTORY OF PRESENT ILLNESS: A pleasant 52-year-old male who has a history of recurrent Clostridium difficile, toxemia due to previous antibiotic use. He was at [facility] and discharged on 07/17/2017 on p.o. vancomycin and originally he was seeing Dr. Walsh. He had been feeling better, stools were forming and last weekend, he was taken off vancomycin, but he began having excessive diarrhea once again and stools again came back positive for Clostridium difficile and he was restarted on p.o. vancomycin, the liquid version on 08/02/2017. He had seen Dr. Kennedy in our practice as an outpatient for consideration towards fecal transplantation. The patient continued to have loose stools, but then eventually did slow down. He has been having cramping discomfort as well. He has been hydrating himself with Pedialyte at home. However, because of his protracted symptoms, he presented to the emergency room and was admitted, was given Zofran and IV fluids and he is feeling better. His repeat stool PCR for Clostridium difficile came back negative this time. He still has ongoing diarrhea. We discussed starting him on either cholestyramine or Colestipol as a binding agent. In addition, we discussed the possibility he could have another superimposed infection or pathogen, especially viruses such as norovirus. In addition to the above, the patient has had imaging studies previously. Last CT in June revealed a small sigmoid fluid collection, abscess 2 x 1.5 cm. He has not had followup imaging study with CT contrast because of his chronic renal insufficiency and creatinine in the 4 range. At this time, the patient appears to be stable and comfortable. He does have some abdominal discomfort. He is requesting pain medication. Once again, we were asked to evaluate him further. PAST MEDICAL HISTORY: Includes recurrent Clostridium difficile, history of dehydration in the past, sigmoid colon abscess in the past, history of renal insufficiency. His past history also includes diverticular disease, reflux, pancreatitis due to alcohol, and seizure disorder. MEDICATIONS: Have included Bentyl, Florastor, lisinopril, amlodipine, promethazine and Xanax. ALLERGIES: CODEINE, IBUPROFEN, LEVOFLOXACIN, AND METRONIDAZOLE. FAMILY HISTORY: Negative from a GI standpoint. SOCIAL HISTORY: He stopped alcohol consumption last November. No illicit drug use; however, he has used marijuana in the past. REVIEW OF SYSTEMS: A 12-point review of systems other than those mentioned above. He denies any fever, chills, jaundice or weight loss. LABORATORY DATA: His liver enzymes are normal. Albumin is 12.3. Lipase was normal range. Creatinine was 4.84 on the and is now 4.05. IMAGING STUDIES: Abdominal x-ray revealed some gastric distention and small bowel air fluid levels consistent with mild ileus. PHYSICAL EXAMINATION: GENERAL: Well-developed male, alert and oriented x 3, in no acute distress. VITAL SIGNS: Stable. He is afebrile. HEENT: Normocephalic, atraumatic. Sclerae are anicteric. Oral mucosa moist. NECK: Supple. CARDIAC: S1, S2. Regular rhythm. CHEST: Clear. ABDOMEN: Soft, nontender, bowel sounds present. No organomegaly. No masses palpable. EXTREMITIES: Without clubbing, cyanosis or edema. ASSESSMENT AND PLAN: A 62-year-old male with recurrent Clostridium difficile, toxemia on several occasions. He has been treated with several antibiotics including p.o. vancomycin, both liquid and pill form, and also Dificid. Because of his repeated bouts of Clostridium difficile, he is a candidate for fecal transplantation and he has already discussed this with Dr. Kennedy as an outpatient. Once he is discharged, we will have him followup with Dr. Kennedy for consideration of that procedure to try and eradicate this problem. For now, I would recommend continuation of p.o. liquid vancomycin as previously prescribed. Would continue probiotics and will add Colestipol or cholestyramine to his regimen. Continue with hydration as well. We could check his stools for further pathogens as well, especially viral agents which could be superimposed causing some sort of symptomatology. I discussed this in detail with the patient. I will follow the patient with you. Thank you for this consultation. MD KARO Larson/KELLIE , 03:35 PM , 04:21 PM
--- NOTE | 2017-08-07 17:02 | EKG ---
Date Performed: 08/06/2017 Time Performed: 21:59:56 PTAGE: 62 years EKG: SINUS TACHYCARDIA ABNORMAL RHYTHM ECG Compared to PREVIOUS TRACING , the tachycardia has significantly improved. PREVIOUS TRACIN03/16/20 17 10.26 DOCTOR: Mona Davis Interpretating Date/Time 08/07/2017 17:00:28
[2017-08-07] MEDS: COLESTIPOL HCL 5 GM PACKET PO SCH (20:28)
[2017-08-07] MEDS: ALPRAZolam 0.5 MG TAB PO PRN (20:33)
[2017-08-08] VITALS: BP 139/86; PULSE 87; RESP 20; TEMP 98.2; O2SAT 97
[2017-08-08] MEDS: SODIUM CHLOR 0.9% 1000 ML INJ 1,000 ML IV SCH ×4 (03:20→22:54)
[2017-08-08 05:08] LABS: AUTOMATED NEUTROPHIL # 5.7 TH/MM3 (1.8-7.7); BASOPHIL % 0.5 % (0.0-2.0); EOSINOPHIL # 0.2 TH/MM3 (0-0.4); EOSINOPHIL % 2.7 % (0.0-4.0); HEMATOCRIT 28.8 % (39.0-51.0); HEMOGLOBIN 9.5 GM/DL (13.0-17.0); LYMPH % 19.1 % (9.0-44.0); LYMPHOCYTE # 1.6 TH/MM3 (1.0-4.8); MEAN CELL VOLUME 82.4 FL (80.0-100.0); MEAN CORPUSCULAR HEMOGLOBIN 27.1 PG (27.0-34.0); MEAN CORPUSCULAR HGB CONC 32.9 % (32.0-36.0); MONO % 9.8 % (0.0-8.0); MONOCYTE # 0.8 TH/MM3 (0-0.9); NEUT % 67.9 % (16.0-70.0); PLATELET COUNT 242 TH/MM3 (150-450); RED CELL DISTRIBUTION WIDTH 15.9 % (11.6-17.2); WHITE BLOOD COUNT 8.4 TH/MM3 (4.0-11.0)
[2017-08-08 05:11] LABS: ALBUMIN 2.8 GM/DL (3.4-5.0); ALKALINE PHOSPHATASE 61 U/L (45-117); ALT (GPT) 14 U/L (12-78); AST (GOT) 18 U/L (15-37); BLOOD UREA NITROGEN 21 MG/DL (7-18); CALCIUM 7.7 MG/DL (8.5-10.1); CHLORIDE 110 MEQ/L (98-107); CREATININE 1.91 MG/DL (0.60-1.30); GLOMERULAR FILTRATION RATE 36 ML/MIN (>89); GLUCOSE,RANDOM 99 MG/DL (74-106); SODIUM (NA) 138 MEQ/L (136-145); TOTAL BILIRUBIN ADULT 0.3 MG/DL (0.2-1.0); TOTAL PROTEIN 6.2 GM/DL (6.4-8.2)
[2017-08-08 08:00] VITALS: BP 154/89; PULSE 93; RESP 17; TEMP 97.6; O2SAT 97
[2017-08-08] MEDS: VANCOMYCIN 500 MG VIAL (FOR ORAL USE ONLY) PO SCH ×4 (08:11→19:43)
[2017-08-08] MEDS: LACTULOSE SYRUP 20 GM/30 ML CUP PO SCH (08:11)
[2017-08-08] MEDS: LACTOBACILLUS ACIDOPHILUS 1 GM PACKET PO SCH ×3 (08:11→18:11)
[2017-08-08] MEDS: SODIUM CHLORIDE 0.9% FLUSH 10 ML FLUSH IV FLUSH SCH ×2 (08:12→19:44)
[2017-08-08] MEDS: COLESTIPOL HCL 5 GM PACKET PO SCH ×2 (08:12→19:44)
--- NOTE | 2017-08-08 09:22 | HHI.FPPN ---
Subjective Remarks Patient seen and examined bedside this morning. Patient states he feels 100% better from when he was admitted. His diarrhea is stopped and he has had 2 normal bowel movements this morning. He has continued to urinate and is now urinating in a much higher volume in the urine is more clear. He denies any burning with urination. He denies any chest pain/shortness of breath/ dizziness. He continues to have mild 2 out of 10 lower abdominal pain that is chronic for him. No acute events overnight. (Annika Colon MD R2) Objective Vitals Vital Signs Date Time Temp Pulse Resp B/P (MAP) Pulse Ox O2 Delivery O2 Flow Rate FiO2 08/08/17 08:00 97.6 93 17 154/89 (110) 97 08/08/17 00:00 98.2 87 20 139/86 (103) 97 08/07/17 21:12 96 21 08/07/17 20:00 98.4 87 18 141/85 (103) 96 08/07/17 16:00 98.1 104 17 140/91 (107) 99 08/07/17 12:00 97.1 83 17 145/84 (104) 99 08/07/17 09:30 99 I/O 08/07/17 08/07/17 08/07/17 08/08/17 08/08/17 08/08/17 07:00 15:00 23:00 07:00 15:00 23:00 Intake Total 1100 ml 100 ml 4800 ml 1280 ml Output Total 200 ml 2530 ml 2030 ml Balance 900 ml 100 ml 2270 ml -750 ml Intake Oral 2950 ml 280 ml IV Total 1100 ml 100 ml 1850 ml 1000 ml Output Urine Total 200 ml 2530 ml 2030 ml # Voids 2 2 # Bowel Movements 1 0 (Annika Colon MD R2) Result Diagram: 08/08/17 0420 08/08/17 042 Objective Remarks GENERAL: No acute distress, talkative and laying in bed SKIN: Warm and dry. HEAD: Normocephalic. EYES: No scleral icterus. No injection or drainage. NECK: Supple, trachea midline. No JVD or lymphadenopathy. CARDIOVASCULAR: Regular rate and rhythm without murmurs, gallops, or rubs. RESPIRATORY: Breath sounds equal bilaterally. No accessory muscle use. GASTROINTESTINAL: Abdomen soft, mild tenderness to palpation in lower quadrants bilaterally, nondistended. Positive bowel sounds. No peritoneal signs. No rebound tenderness. MUSCULOSKELETAL: No cyanosis, or edema. BACK: Nontender without obvious deformity. No CVA tenderness. (Annika Colon MD R2) A/P Assessment and Plan This patient is a 62-year-old man, history of chronic C. difficile infection requiring hospitalization, diverticulitis, alcoholic pancreatitis, presents with recurrent diarrhea and severe dehydration. On previous hospital admission: This C. difficile diarrhea was quite severe and patient required extensive modifications and therapy and pain control and antiemetics. Finally his stool consistency improved in frequency improved. Patient was dehydrated and required days of IV hydration and was unable to keep food down. He was seen by gastroenterology in consultation. Regimen was finally found it was appropriate for him and beneficial for his recovery. He was discharged home. CT abdomen/ pelvis done on 07/14 revealing small sigmoid abscess and requesting follow-up in 2 weeks. Discharge Planning Pending results of repeat blood culture, expected discharge 08/09 in a.m. (Annika Colon MD R2) Attending Attestation Patient seen and examined, discussed with resident team. I agree with assessment and management as documented and discussed with me. Kidney function is much improved overnight. Pt reports urine is clear in color. No further diarrhea. Positive blood culture - suspect contaminant. Repeat blood cultures pending. Anticipate discharge tomorrow. (Susan Pascal MD) Problem List: (1) Acute renal failure ICD Codes: N17.9 - Acute kidney failure, unspecified Status: Resolved Plan: Creat 4.84 on admission (up from 1.10 last month). Improved to 1.91 with IV fluid. AK I from severe dehydration Patient 100% improved clinically Follow-up BMP in a.m. Renal US: Mild medicorenal disease. Urine sodium normal. Monitor Is/Os. Provide IVF. (2) Chronic diarrhea ICD Codes: K52.9 - Noninfective gastroenteritis and colitis, unspecified Status: Chronic Plan: Diarrhea has stopped, 2 normal bowel movements today History of C. difficile very difficult to manage by GI on last admission 06/2017 ; although C Diff negative on 08/06/17. GI has been consulted; pt reports seeing Dr Kennedy as an outpatient and discussing fecal transplant. Continue oral vancomycin taper; 125mg QID (08/02 - 08/12) then taper dosage Continue probiotics and Colestipol per GI X-ray demonstrates possible mild ileus, but pt reports + flatus, + more formed stool, and patient tolerating PO. (3) SIRS (systemic inflammatory response syndrome) ICD Codes: R65.10 - Systemic inflammatory response syndrome (SIRS) of non- infectious origin without acute organ dysfunction Status: Resolved Plan: VS WNL now Tachycardic on admission with heart rate of 107 Blood pressure borderline low at 91/73 WBC of 16 -> resolved UA: Moderate leuk esterase, negative nitrite. Ucx negative UCx: negative Blood Cx: aerobic cx x 1 growing staph coagulase negative, f/u repeat blood cx CXR: Negative for consolidation Lactic acid: normal (4) Severe dehydration ICD Codes: E86.0 - Dehydration Status: Acute Plan: Symptoms have resolved, labs resolving Volume depletion from vomiting and diarrhea Sx of hypovolemia; postural hypotension, elevated Creat and BUN Will monitor VS for sx of hypovolemia f/u urine output; monitor Is/Os. Urine output is improving, +1420 balance s/p 1L bolus x 2 in ED Continue IVF at 1.5maintenance (150mls/hr) (5) Abdominal pain ICD Codes: R10.9 - Unspecified abdominal pain Status: Resolved Plan: Chronic lower abdominal pain Differential includes chronic diarrhea vs. dehydration sx vs. infectious diarrhea Urine culture negative C.Diff negative Follow up other stool studies. CMP WNL Lipase WNL (6) Abscess of sigmoid colon ICD Codes: K63.0 - Abscess of intestine Status: Chronic Plan: CT w/ IV contrast 07/14: shows small sigmoid abscess CT was due to be repeated in 2 weeks; will hold off on repeat CT at this time, as pt denies abdominal pain and has Acute renal failure, follow-up with GI as outpatient. CT abdomen/pelvis 07/14/2017: 2.3 x 1.5 cm rim-enhancing fluid collection the distal sigmoid colonic wall, possibly a small abscess of other significant inflammatory change is identified in the surrounding soft tissues. There is sigmoid diverticulosis. Small hiatal hernia. Biliary ductal dilatation to 12 mm. No free fluid or free air. (7) Alcohol abuse ICD Codes: F10.10 - Alcohol abuse, uncomplicated Status: Chronic Plan: [facility] protocol Urine toxicology positive for marijuana and benzos (He is prescribed Xanax). (8) Hypertension ICD Codes: I10 - Essential (primary) hypertension Status: Chronic Plan: BP was low at admission, and home medications have been held. Resume amlodipine 5 mg daily Continue to hold lisinopril 20 mg daily until creatinine stable f/u BPs, f/u Creatinine (9) Hypochromic anemia ICD Codes: D50.9 - Iron deficiency anemia, unspecified Status: Resolved Plan: Drop from 12.4 (08/06) to 9.4 (08/07), now stable at 9.5 This appears to be at patient's baseline, upon chart review. Likely related to IVF hemodilution Hemoccult negative f/u CBC in AM (10) fen/ppx Status: Chronic Plan: Fluids: IV fluids at 1.5 maintenance Electrolytes: BMP WNL Nutrition: PO diet GI ppx: hold off on PPI, due to C Diff dvt ppx: SCDs. (Annika Colon MD R2) Problem Qualifiers (1) Hypertension: Qualified Codes: I10 - Essential (primary) hypertension Annika Colon MD R2 Aug 08, 2017 09:22 Susan Pascal MD Aug 10, 2017 06:37
--- NOTE | 2017-08-08 10:17 | HHI.GIFU ---
Subjective Remarks felling better overall tolerating some po liquids therfore will hold on g tube for now Objective Vitals I&O Vital Signs Date Time Temp Pulse Resp B/P (MAP) Pulse Ox O2 Delivery O2 Flow Rate FiO2 08/08/17 08:00 97.6 93 17 154/89 (110) 97 08/08/17 00:00 98.2 87 20 139/86 (103) 97 08/07/17 21:12 96 21 08/07/17 20:00 98.4 87 18 141/85 (103) 96 08/07/17 16:00 98.1 104 17 140/91 (107) 99 08/07/17 12:00 97.1 83 17 145/84 (104) 99 I/O 08/07/17 08/07/17 08/07/17 08/08/17 08/08/17 08/08/17 06:59 14:59 22:59 06:59 14:59 22:59 Intake Total 1100 ml 100 ml 4800 ml 1280 ml Output Total 200 ml 2530 ml 2030 ml Balance 1100 ml -100 ml 2270 ml -750 ml Intake Oral 2950 ml 280 ml IV Total 1100 ml 100 ml 1850 ml 1000 ml Output Urine Total 200 ml 2530 ml 2030 ml # Voids 2 2 # Bowel Movements 1 0 Laboratory Laboratory Tests Test 08/08/17 04:20 White Blood Count 8.4 Red Blood Count 3.50 Hemoglobin 9.5 Hematocrit 28.8 Mean Corpuscular Volume 82.4 Mean Corpuscular Hemoglobin 27.1 Mean Corpuscular Hemoglobin Concent 32.9 Red Cell Distribution Width 15.9 Platelet Count 242 Mean Platelet Volume 8.0 Neutrophils (%) (Auto) 67.9 Lymphocytes (%) (Auto) 19.1 Monocytes (%) (Auto) 9.8 Eosinophils (%) (Auto) 2.7 Basophils (%) (Auto) 0.5 Neutrophils # (Auto) 5.7 Lymphocytes # (Auto) 1.6 Monocytes # (Auto) 0.8 Eosinophils # (Auto) 0.2 Basophils # (Auto) 0.0 CBC Comment DIFF FINAL Differential Comment Blood Urea Nitrogen 21 Creatinine 1.91 Random Glucose 99 Total Protein 6.2 Albumin 2.8 Calcium Level 7.7 Alkaline Phosphatase 61 Aspartate Amino Transf (AST/SGOT) 18 Alanine Aminotransferase (ALT/SGPT) 14 Total Bilirubin 0.3 Sodium Level 138 Potassium Level 3.8 Chloride Level 110 Carbon Dioxide Level 19.0 Anion Gap 9 Estimat Glomerular Filtration Rate 36 Date/Time Source Procedure Growth Status 08/08/17 04:20 Blood Peripheral Aerobic Blood Culture Pending Received 08/08/17 04:20 Blood Peripheral Anaerobic Blood Culture Pending Received 08/07/17 12:59 Stool Duodenal Aspirate Stool Pus (ALYSSIA) Pending Received 08/06/17 14:10 Urine Clean Catch Urine Culture - Final Klebsiella Oxytoca Complete Imaging Last 72 hours Impressions Renal Ultrasound 08/06/17 0000 Signed Impressions: Service Date/Time: Sunday, August 06, 2017 22:01 - CONCLUSION: 1. Mildly increased renal echogenicity characteristic of mild medical renal disease. Small left renal cyst. Efren Ca MD Chest X-Ray 08/06/17 0000 Signed Impressions: Service Date/Time: Sunday, August 06, 2017 18:06 - CONCLUSION: 1. No acute findings. Minimal basal atelectasis or scarring. Remote left rib fractures. Efren Ca MD Abdomen X-Ray 08/06/17 0000 Signed Impressions: Service Date/Time: Sunday, August 06, 2017 23:05 - CONCLUSION: 1. Mild small bowel ileus. Cirilo Maciel MD Physical Exam Hr. NECK: Neck is supple, no JVD, no lymphadenopathy. CHEST: Chest is clear to auscultation and percussion. CARDIAC: Regular rate and rhythm with no murmur gallop or rubs. ABDOMEN: Soft, nondistended, nontender; no hepatosplenomegaly; bowel sounds are present in all four quadrants. EXTREMITIES: No clubbing, cyanosis, or edema. SKIN: Normal; no rash; no jaundice. Assessment and Plan Assessment: (1) Odynophagia ICD Codes: R13.10 - Dysphagia, unspecified (2) Dysphagia ICD Codes: R13.10 - Dysphagia, unspecified (3) GERD (gastroesophageal reflux disease) ICD Codes: K21.9 - GERD (gastroesophageal reflux disease) Status: Acute (4) Radiation esophagitis ICD Codes: K20.8 - Other esophagitis Plan: Continue present therapy as pt has had improvement will defer GT for now and follow discussed w pt James Kennedy MD Aug 08, 2017 10:17
--- NOTE | 2017-08-08 10:20 | HHI.GIFU ---
Objective Vitals I&O Vital Signs Date Time Temp Pulse Resp B/P (MAP) Pulse Ox O2 Delivery O2 Flow Rate FiO2 08/08/17 08:00 97.6 93 17 154/89 (110) 97 08/08/17 00:00 98.2 87 20 139/86 (103) 97 08/07/17 21:12 96 21 08/07/17 20:00 98.4 87 18 141/85 (103) 96 08/07/17 16:00 98.1 104 17 140/91 (107) 99 08/07/17 12:00 97.1 83 17 145/84 (104) 99 I/O 08/07/17 08/07/17 08/07/17 08/08/17 08/08/17 08/08/17 06:59 14:59 22:59 06:59 14:59 22:59 Intake Total 1100 ml 100 ml 4800 ml 1280 ml Output Total 200 ml 2530 ml 2030 ml Balance 1100 ml -100 ml 2270 ml -750 ml Intake Oral 2950 ml 280 ml IV Total 1100 ml 100 ml 1850 ml 1000 ml Output Urine Total 200 ml 2530 ml 2030 ml # Voids 2 2 # Bowel Movements 1 0 Laboratory Laboratory Tests Test 08/08/17 04:20 White Blood Count 8.4 Red Blood Count 3.50 Hemoglobin 9.5 Hematocrit 28.8 Mean Corpuscular Volume 82.4 Mean Corpuscular Hemoglobin 27.1 Mean Corpuscular Hemoglobin Concent 32.9 Red Cell Distribution Width 15.9 Platelet Count 242 Mean Platelet Volume 8.0 Neutrophils (%) (Auto) 67.9 Lymphocytes (%) (Auto) 19.1 Monocytes (%) (Auto) 9.8 Eosinophils (%) (Auto) 2.7 Basophils (%) (Auto) 0.5 Neutrophils # (Auto) 5.7 Lymphocytes # (Auto) 1.6 Monocytes # (Auto) 0.8 Eosinophils # (Auto) 0.2 Basophils # (Auto) 0.0 CBC Comment DIFF FINAL Differential Comment Blood Urea Nitrogen 21 Creatinine 1.91 Random Glucose 99 Total Protein 6.2 Albumin 2.8 Calcium Level 7.7 Alkaline Phosphatase 61 Aspartate Amino Transf (AST/SGOT) 18 Alanine Aminotransferase (ALT/SGPT) 14 Total Bilirubin 0.3 Sodium Level 138 Potassium Level 3.8 Chloride Level 110 Carbon Dioxide Level 19.0 Anion Gap 9 Estimat Glomerular Filtration Rate 36 Date/Time Source Procedure Growth Status 08/08/17 04:20 Blood Peripheral Aerobic Blood Culture Pending Received 08/08/17 04:20 Blood Peripheral Anaerobic Blood Culture Pending Received 08/07/17 12:59 Stool Duodenal Aspirate Stool Pus (ALYSSIA) Pending Received 08/06/17 14:10 Urine Clean Catch Urine Culture - Final Klebsiella Oxytoca Complete Physical Exam Hr. NECK: Neck is supple, no JVD, no lymphadenopathy. CHEST: Chest is clear to auscultation and percussion. CARDIAC: Regular rate and rhythm with no murmur gallop or rubs. ABDOMEN: Soft, nondistended, nontender; no hepatosplenomegaly; bowel sounds are present in all four quadrants. EXTREMITIES: No clubbing, cyanosis, or edema. SKIN: Normal; no rash; no jaundice. Assessment and Plan Assessment: (1) Odynophagia ICD Codes: R13.10 - Dysphagia, unspecified (2) Dysphagia ICD Codes: R13.10 - Dysphagia, unspecified (3) GERD (gastroesophageal reflux disease) ICD Codes: K21.9 - GERD (gastroesophageal reflux disease) Status: Acute (4) Radiation esophagitis ICD Codes: K20.8 - Other esophagitis Plan: Continue present therapy as pt has had improvement will defer GT for now and follow discussed w pt James Kennedy MD Aug 08, 2017 10:20
[2017-08-08] MEDS: amLODIPine BESYLATE 5 MG TAB PO SCH (11:00)
[2017-08-08] MEDS: ALPRAZolam 0.5 MG TAB PO PRN ×2 (11:01→22:53)
--- NOTE | 2017-08-08 11:15 | HHI.GIFU ---
Subjective Remarks pt is alert nad feeling better overall no further diarrhea w meds Objective Vitals I&O Vital Signs Date Time Temp Pulse Resp B/P (MAP) Pulse Ox O2 Delivery O2 Flow Rate FiO2 08/08/17 08:00 97.6 93 17 154/89 (110) 97 08/08/17 00:00 98.2 87 20 139/86 (103) 97 08/07/17 21:12 96 21 08/07/17 20:00 98.4 87 18 141/85 (103) 96 08/07/17 16:00 98.1 104 17 140/91 (107) 99 08/07/17 12:00 97.1 83 17 145/84 (104) 99 I/O 08/07/17 08/07/17 08/07/17 08/08/17 08/08/17 08/08/17 07:00 15:00 23:00 07:00 15:00 23:00 Intake Total 1100 ml 100 ml 4800 ml 1280 ml Output Total 200 ml 2530 ml 2030 ml Balance 900 ml 100 ml 2270 ml -750 ml Intake Oral 2950 ml 280 ml IV Total 1100 ml 100 ml 1850 ml 1000 ml Output Urine Total 200 ml 2530 ml 2030 ml # Voids 2 2 # Bowel Movements 1 0 Laboratory Laboratory Tests Test 08/08/17 04:20 White Blood Count 8.4 Red Blood Count 3.50 Hemoglobin 9.5 Hematocrit 28.8 Mean Corpuscular Volume 82.4 Mean Corpuscular Hemoglobin 27.1 Mean Corpuscular Hemoglobin Concent 32.9 Red Cell Distribution Width 15.9 Platelet Count 242 Mean Platelet Volume 8.0 Neutrophils (%) (Auto) 67.9 Lymphocytes (%) (Auto) 19.1 Monocytes (%) (Auto) 9.8 Eosinophils (%) (Auto) 2.7 Basophils (%) (Auto) 0.5 Neutrophils # (Auto) 5.7 Lymphocytes # (Auto) 1.6 Monocytes # (Auto) 0.8 Eosinophils # (Auto) 0.2 Basophils # (Auto) 0.0 CBC Comment DIFF FINAL Differential Comment Blood Urea Nitrogen 21 Creatinine 1.91 Random Glucose 99 Total Protein 6.2 Albumin 2.8 Calcium Level 7.7 Alkaline Phosphatase 61 Aspartate Amino Transf (AST/SGOT) 18 Alanine Aminotransferase (ALT/SGPT) 14 Total Bilirubin 0.3 Sodium Level 138 Potassium Level 3.8 Chloride Level 110 Carbon Dioxide Level 19.0 Anion Gap 9 Estimat Glomerular Filtration Rate 36 Date/Time Source Procedure Growth Status 08/08/17 04:20 Blood Peripheral Aerobic Blood Culture Pending Received 08/08/17 04:20 Blood Peripheral Anaerobic Blood Culture Pending Received 08/07/17 12:59 Stool Duodenal Aspirate Stool Pus (ALYSSIA) Pending Received 08/06/17 14:10 Urine Clean Catch Urine Culture - Final Klebsiella Oxytoca Complete Imaging Laboratory Tests Test 08/06/17 12:55 08/06/17 13:13 08/06/17 14:10 08/06/17 14:23 Prothrombin Time 10.0 SEC Prothromb Time International Ratio 1.0 RATIO Activated Partial Thromboplast Time 24.5 SEC Lipase 245 U/L Urine Color YELLOW Urine Turbidity HAZY Urine pH 5.5 Urine Specific [place] 1.017 Urine Protein 30 mg/dL Urine Glucose (UA) NEG mg/dL Urine Ketones NEG mg/dL Urine Occult Blood NEG Urine Nitrite NEG Urine Bilirubin SMALL Urine Urobilinogen LESS THAN 2.0 MG/DL Urine Leukocyte Esterase MOD Urine WBC 10 /hpf Urine Squamous Epithelial Cells 2 /hpf Urine Hyaline Casts 10 /lpf Urine Mucus FEW /lpf Microscopic Urinalysis Comment CULTURE INDICATED Urine Random Sodium 20 MEQ/L Urine Opiates Screen NEG Urine Barbiturates Screen NEG Urine Amphetamines Screen NEG Urine Benzodiazepines Screen POS Urine Cocaine Screen NEG Urine Cannabinoids Screen POS Test 08/06/17 15:10 08/06/17 17:40 08/07/17 05:08 08/08/17 04:20 Stool C. difficile Toxin (PCR) NEGATIVE Stl C. difficile Toxin Epiderm 027 PRESUMPTIVE NEGATIVE Lactic Acid Level 0.8 mmol/L Total Creatine Kinase 83 U/L Random Gentamicin Level LESS THAN 0.2 MCG/ML White Blood Count 8.4 TH/MM3 Red Blood Count 3.50 MIL/MM3 Hemoglobin 9.5 GM/DL Hematocrit 28.8 % Mean Corpuscular Volume 82.4 FL Mean Corpuscular Hemoglobin 27.1 PG Mean Corpuscular Hemoglobin Concent 32.9 % Red Cell Distribution Width 15.9 % Platelet Count 242 TH/MM3 Mean Platelet Volume 8.0 FL Neutrophils (%) (Auto) 67.9 % Lymphocytes (%) (Auto) 19.1 % Monocytes (%) (Auto) 9.8 % Eosinophils (%) (Auto) 2.7 % Basophils (%) (Auto) 0.5 % Neutrophils # (Auto) 5.7 TH/MM3 Lymphocytes # (Auto) 1.6 TH/MM3 Monocytes # (Auto) 0.8 TH/MM3 Eosinophils # (Auto) 0.2 TH/MM3 Basophils # (Auto) 0.0 TH/MM3 CBC Comment DIFF FINAL Differential Comment Blood Urea Nitrogen 21 MG/DL Creatinine 1.91 MG/DL Random Glucose 99 MG/DL Total Protein 6.2 GM/DL Albumin 2.8 GM/DL Calcium Level 7.7 MG/DL Alkaline Phosphatase 61 U/L Aspartate Amino Transf (AST/SGOT) 18 U/L Alanine Aminotransferase (ALT/SGPT) 14 U/L Total Bilirubin 0.3 MG/DL Sodium Level 138 MEQ/L Potassium Level 3.8 MEQ/L Chloride Level 110 MEQ/L Carbon Dioxide Level 19.0 MEQ/L Anion Gap 9 MEQ/L Estimat Glomerular Filtration Rate 36 ML/MIN Last 72 hours Impressions Renal Ultrasound 08/06/17 0000 Signed Impressions: Service Date/Time: Sunday, August 06, 2017 22:01 - CONCLUSION: 1. Mildly increased renal echogenicity characteristic of mild medical renal disease. Small left renal cyst. Efren Ca MD Chest X-Ray 08/06/17 0000 Signed Impressions: Service Date/Time: Sunday, August 06, 2017 18:06 - CONCLUSION: 1. No acute findings. Minimal basal atelectasis or scarring. Remote left rib fractures. Efren Ca MD Abdomen X-Ray 08/06/17 0000 Signed Impressions: Service Date/Time: Sunday, August 06, 2017 23:05 - CONCLUSION: 1. Mild small bowel ileus. Cirilo Maciel MD Physical Exam Hr. NECK: Neck is supple, no JVD, no lymphadenopathy. CHEST: Chest is clear to auscultation and percussion. CARDIAC: Regular rate and rhythm with no murmur gallop or rubs. ABDOMEN: Soft, nondistended, nontender; no hepatosplenomegaly; bowel sounds are present in all four quadrants. EXTREMITIES: No clubbing, cyanosis, or edema. SKIN: Normal; no rash; no jaundice. Assessment and Plan Assessment: (1) Clostridium difficile infection ICD Codes: B96.89 - Other specified bacterial agents as the cause of diseases classified elsewhere Status: Acute (2) Diarrhea ICD Codes: R19.7 - Diarrhea, unspecified Plan continue present therapy and colestipol will discuss case w Dr Kennedy as pt has ho recurrent c diff infection and will possibly need fecal transplantation in near future... stable for dc stools currently negatice for c diff James Kennedy MD Aug 08, 2017 11:15
[2017-08-08 12:00] VITALS: BP 163/97; PULSE 80; RESP 17; TEMP 98.1; O2SAT 99
[2017-08-08 16:00] VITALS: BP 134/86; PULSE 82; RESP 17; TEMP 97.8; O2SAT 99
[2017-08-08 20:00] VITALS: BP 157/93; PULSE 85; RESP 20; TEMP 98.9; O2SAT 97
[2017-08-09] VITALS: BP 160/87; PULSE 75; RESP 18; TEMP 97.8; O2SAT 98
[2017-08-09] MEDS: SODIUM CHLOR 0.9% 1000 ML INJ 1,000 ML IV SCH (05:58)
[2017-08-09 06:14] LABS: AUTOMATED NEUTROPHIL # 3.9 TH/MM3 (1.8-7.7); BASOPHIL % 0.6 % (0.0-2.0); EOSINOPHIL # 0.2 TH/MM3 (0-0.4); EOSINOPHIL % 3.1 % (0.0-4.0); HEMATOCRIT 30.4 % (39.0-51.0); HEMOGLOBIN 10.1 GM/DL (13.0-17.0); LYMPH % 28.1 % (9.0-44.0); LYMPHOCYTE # 1.9 TH/MM3 (1.0-4.8); MEAN CORPUSCULAR HEMOGLOBIN 27.4 PG (27.0-34.0); MEAN CORPUSCULAR HGB CONC 33.4 % (32.0-36.0); MEAN PLATELET VOLUME 8.1 FL (7.0-11.0); MONO % 11.4 % (0.0-8.0); MONOCYTE # 0.8 TH/MM3 (0-0.9); NEUT % 56.8 % (16.0-70.0); PLATELET COUNT 237 TH/MM3 (150-450); RED CELL DISTRIBUTION WIDTH 16.1 % (11.6-17.2); WHITE BLOOD COUNT 6.9 TH/MM3 (4.0-11.0)
[2017-08-09 06:35] LABS: AST (GOT) 17 U/L (15-37); BICARBONATE 20.5 MEQ/L (21.0-32.0); BLOOD UREA NITROGEN 13 MG/DL (7-18); CHLORIDE 108 MEQ/L (98-107); GLOMERULAR FILTRATION RATE 61 ML/MIN (>89); GLUCOSE,RANDOM 94 MG/DL (74-106); SODIUM (NA) 139 MEQ/L (136-145)
[2017-08-09 06:36] LABS: ALT (GPT) 15 U/L (12-78)
[2017-08-09 06:39] LABS: ALKALINE PHOSPHATASE 55 U/L (45-117); TOTAL BILIRUBIN ADULT 0.3 MG/DL (0.2-1.0); TOTAL PROTEIN 6.7 GM/DL (6.4-8.2)
[2017-08-09 08:00] VITALS: BP 144/92; PULSE 82; RESP 20; TEMP 97.4; O2SAT 98
[2017-08-09] MEDS: COLESTIPOL HCL 5 GM PACKET PO SCH (09:00)
[2017-08-09] MEDS: SODIUM CHLORIDE 0.9% FLUSH 10 ML FLUSH IV FLUSH SCH (09:00)
[2017-08-09] MEDS: LACTULOSE SYRUP 20 GM/30 ML CUP PO SCH (09:00)
[2017-08-09] MEDS: LACTOBACILLUS ACIDOPHILUS 1 GM PACKET PO SCH (09:00)
[2017-08-09] MEDS: amLODIPine BESYLATE 5 MG TAB PO SCH (09:19)
[2017-08-09] MEDS: VANCOMYCIN 500 MG VIAL (FOR ORAL USE ONLY) PO SCH (09:19)
[2017-08-09] MEDS: ALPRAZolam 0.5 MG TAB PO PRN (11:06)
[2017-08-09] MEDS ORDERED: COLE5 PO (11:19)
[2017-08-09] MEDS ORDERED: LACTG PO (11:19)
--- NOTE | 2017-08-09 11:21 | HHI.DCPOC ---
Discharge Care Plan Diagnosis: (1) Diarrhea (2) SHAVONNE (acute kidney injury) (3) Dehydration Additional Problems Follow-up CT abdomen for sigmoid abscess per outpatient GI. Goals to Promote Your Health * To prevent worsening of your condition and complications * To maintain your health at the optimal level Directions to Meet Your Goals Take your medications as prescribed Follow your dietary instruction Follow activity as directed Keep your appointments as scheduled Take your immunizations and boosters as scheduled If your symptoms worsen call your PCP, if no PCP go to Urgent Care Center or Emergency Room Smoking is Dangerous to Your Health. Avoid second hand smoke Call the 24-hour hour crisis hotline for domestic abuse at Daniela Urban MD R1 Aug 09, 2017 11:21
--- NOTE | 2017-08-09 15:24 | HHI.FPPN ---
Subjective Remarks Patient was seen and evaluated this morning. He feels well. He reports two solid , formed stools overnight. He denies chest pain, shortness of breath, nausea, vomiting, diarrhea and constipation. All questions were answered. (Daniela Urban MD R1) Objective Vitals Vital Signs Date Time Temp Pulse Resp B/P (MAP) Pulse Ox O2 Delivery O2 Flow Rate FiO2 08/09/17 08:00 97.4 82 20 144/92 (109) 98 08/09/17 00:00 97.8 75 18 160/87 (111) 98 08/08/17 20:00 98.9 85 20 157/93 (114) 97 08/08/17 16:00 97.8 82 17 134/86 (102) 99 I/O 08/08/17 08/08/17 08/08/17 08/09/17 08/09/17 08/09/17 07:00 15:00 23:00 07:00 15:00 23:00 Intake Total 1280 ml 3150 ml 240 ml Output Total 2030 ml 2200 ml Balance -750 ml 950 ml 240 ml Intake Oral 280 ml 1440 ml 240 ml IV Total 1000 ml 1710 ml Output Urine Total 2030 ml 2200 ml # Voids 6 # Bowel Movements 1 (Daniela Urban MD R1) Result Diagram: 08/09/1751708/09/17517 Objective Remarks GENERAL: No acute distress, talkative and laying in bed SKIN: Warm and dry. HEAD: Normocephalic. EYES: No scleral icterus. No injection or drainage. NECK: Supple, trachea midline. No JVD or lymphadenopathy. CARDIOVASCULAR: Regular rate and rhythm without murmurs, gallops, or rubs. RESPIRATORY: Breath sounds equal bilaterally. No accessory muscle use. GASTROINTESTINAL: Abdomen soft, mild tenderness to palpation in lower quadrants bilaterally, nondistended. Positive bowel sounds. No peritoneal signs. No rebound tenderness. MUSCULOSKELETAL: No cyanosis, or edema. BACK: Nontender without obvious deformity. No CVA tenderness. (Daniela Urban MD R1) Urinary Catheter: No (Daniela Urban MD R1) Vascular Central Line Catheter: No (Daniela Urban MD R1) A/P Assessment and Plan This patient is a 62-year-old man with a past medical history significant of chronic C. difficile infection requiring hospitalization, diverticulitis and alcoholic pancreatitis who presents with recurrent diarrhea and severe dehydration. On previous hospital admission: C. difficile diarrhea was quite severe and patient required extensive modifications and therapy and pain control and antiemetics. Finally his stool consistency and frequency improved. Patient was dehydrated and required days of IV hydration and was unable to keep food down. He was seen by gastroenterology in consultation. Regimen was finally found it was appropriate for him and beneficial for his recovery. He was discharged home. CT abdomen/ pelvis done on 07/14 revealing small sigmoid abscess and requesting follow-up in 2 weeks. Discharge Planning Discharge today pending negative blood cultures. (Daniela Urban MD R1) Attending Attestation Patient seen and examined, discussed with resident team. I agree with assessment and management as documented and discussed with me. No new concerns. Kidney function has improved. Discharge home today. (Susan Pascal MD) Problem List: (1) Acute renal failure ICD Codes: N17.9 - Acute kidney failure, unspecified Status: Resolved Plan: Creat 4.84 on admission (up from 1.10 last month). Improved to 1.20 with IV fluid. SHAVONNE from severe dehydration. Patient 100% improved clinically. Renal US: Mildly increased renal echogenicity characteristic of mild medical renal disease. Small left renal cyst. Urine sodium normal. (2) Chronic diarrhea ICD Codes: K52.9 - Noninfective gastroenteritis and colitis, unspecified Status: Chronic Plan: Diarrhea has stopped, two normal bowel movements today. History of C. difficile very difficult to manage by GI on last admission 06/2017; C Diff negative on 08/06/17. GI has been consulted; pt reports seeing Dr. Kennedy as an outpatient and discussing fecal transplant. Continue oral vancomycin taper; 125mg QID (08/02 - 08/12) then taper dosage. Continue probiotics and Colestipol per GI. X-ray demonstrates possible mild ileus, but pt reports + flatus, + more formed stool, and patient tolerating PO. (3) Severe dehydration ICD Codes: E86.0 - Dehydration Status: Acute Plan: Symptoms have resolved; labs improved. Volume depletion from vomiting and diarrhea. Symptoms of hypovolemia; postural hypotension, elevated Creat and BUN. Medications: * s/p 1L bolus x 2 in ED. * IVF at 1.5maintenance (150mls/hr) - dc'ed 08/09. (4) SIRS (systemic inflammatory response syndrome) ICD Codes: R65.10 - Systemic inflammatory response syndrome (SIRS) of non- infectious origin without acute organ dysfunction Status: Resolved Plan: Vitals stable and wnl. WBC 08/09: 6.9. Urine culture: negative. Blood culture: aerobic culture x 1 growing staph coagulase negative; repeat negative to date. CXR: Negative for consolidation. Lactic acid: normal. On admission: * Tachycardic with heart rate of 107. * Blood pressure borderline low at 91/73. * WBC of 16. * UA: moderate leuk esterase, negative nitrite. (5) Abdominal pain ICD Codes: R10.9 - Unspecified abdominal pain Status: Resolved Plan: Chronic lower abdominal pain. Differential includes chronic diarrhea vs. dehydration sx vs. infectious diarrhea. Urine culture negative. C.Diff negative. Stool studies negative. (6) Abscess of sigmoid colon ICD Codes: K63.0 - Abscess of intestine Status: Chronic Plan: CT abdomen/pelvis 07/14/2017: 2.3 x 1.5 cm rim-enhancing fluid collection the distal sigmoid colonic wall, possibly a small abscess of other significant inflammatory change is identified in the surrounding soft tissues. There is sigmoid diverticulosis. Small hiatal hernia. Biliary ductal dilatation to 12 mm. No free fluid or free air. CT was due to be repeated in 2 weeks; will hold off on repeat CT at this time, as pt denies abdominal pain and has acute renal failure, follow-up with GI as outpatient. (7) Alcohol abuse ICD Codes: F10.10 - Alcohol abuse, uncomplicated Status: Chronic Plan: [facility] protocol. (8) Hypochromic anemia ICD Codes: D50.9 - Iron deficiency anemia, unspecified Status: Resolved Plan: Drop from 12.4 (08/06) to 9.4 (08/07), now stable at 10.1. This appears to be at patient's baseline, upon chart review. Likely related to IVF hemodilution. Hemoccult negative. (9) Hypertension ICD Codes: I10 - Essential (primary) hypertension Status: Chronic Plan: BP was low at admission, and home medications have been held. Resume amlodipine 5 mg daily. Resume lisinopril 20 mg daily. (10) fen/ppx Status: Chronic Plan: Fluids: * IV fluids at 1.5 maintenance - dc'ed. Electrolytes: * Monitor and replete as necessary. Nutrition: * Regular diet. GI prophylaxis: * Hold off on PPI, due to C Diff. DVT prophylaxis: * SCDs. (Daniela Urban MD R1) Problem Qualifiers (1) Hypertension: Qualified Codes: I10 - Essential (primary) hypertension Daniela Urban MD R1 Aug 09, 2017 15:24 Susan Pascal MD Aug 10, 2017 06:45
== END 2017-08-09 12:58 | disposition home or self-care (01) | DRG 683 ==
LOC: NEPE 12:05 → NEDA 15:17 → N07A 20:00
PROVIDERS: ADMIT Family Medicine; ATTEND Family Medicine
DX: N17.9 Acute kidney failure, unspecified (principal); K63.0 Abscess of intestine; E86.0 Dehydration; I10 Essential (primary) hypertension; F10.10 Alcohol abuse, uncomplicated; D50.9 Iron deficiency anemia, unspecified; K52.9 Noninfective gastroenteritis and colitis, unspecified; K44.9 Diaphragmatic hernia without obstruction or gangrene; R00.0 Tachycardia, unspecified
CPT/HCPCS: 71045; 74019; 76775; 80048; 80053; 80170; 80307; 81001; 82272; 82550; 82948; 83605; 83690; 84300; 85025; 85610; 85730; 87015; 87040; 87077; 87086; 87116; 87186; 87205; 87206; 87207; 87328; 87329; 87493; 87506; 93005; 96361; 96374; 96375; J1885; J2270; J2405; J7030

== ENCOUNTER 2017-08-28 13:56 | Inpatient (IN) | payer BC ==
[~2017-08-28] VITALS: Ht 175.3 cm; Wt 65.0 kg
[~2017-08-28 13:56] MED LIST changes: -CHOL4POW4 PO; +COLE5 PO; -DICY10 PO; -DIFI200T PO; -DILA2TAB4 PO; -FLOR250C PO; +LACTG PO; -PROM25TA10 PO
[2017-08-28 14:02] VITALS: BP 143/95; PULSE 109; RESP 16; TEMP 98.4; O2SAT 100
[2017-08-28 14:14] VITALS: O2SAT 100
[2017-08-28] MEDS ORDERED: SODIUM CHLORID 0.9% 500 ML INJ 500 ML IV ONE ×2 (14:15→16:30)
--- NOTE | 2017-08-28 14:34 | PD ---
HPI Chief Complaint: Abdominal Pain Time Seen by Provider: 14:09 Travel History International Travel<30 days: No Contact w/Intl Traveler<30days: No Traveled to known affect area: No History of Present Illness HPI 62 y/o male presents with lower abdominal pain and nausea with diarrhea. LOCATION: lower QUALITY: sharp SEVERITY: moderate TIMING: intermittent DURATION: couple days CONTACTS: h/o recent and mulitple h/o cdiff MODIFYING FACTORS: denies ASSOCIATED TIME AND SYMPTOMS: diarrhea, nausea PFSH Past Medical History Hx Anticoagulant Therapy: No Arthritis: Yes Asthma: No Autoimmune Disease: No Anxiety: Yes (PTSD) Depression: No Heart Rhythm Problems: No Cancer: No Cardiovascular Problems: Yes High Cholesterol: No Chemotherapy: No Chest Pain: No Congestive Heart Failure: No COPD: No Cerebrovascular Accident: No Diabetes: No Diminished Hearing: Yes (L ear ) Diverticulitis: Yes Endocrine: No Gastrointestinal Disorders: Yes (diverticulitis, ) GERD: Yes Genitourinary: Yes Headaches: No Hiatal Hernia: No Heparin Induced Thrombocytopen: No Hypertension: Yes Immune Disorder: No Implanted Vascular Access Dvce: Yes Kidney Stones: No Musculoskeletal: Yes (right wrist fx, rib fxs with pneunothorax/chest tube.) Neurologic: Yes Psychiatric: No Reproductive: No Respiratory: No Immunizations Current: Yes Migraines: No Pancreatitis: Yes Radiation Therapy: No Renal Failure: No Seizures: Yes (x1 several years ago) Sickle Cell Disease: No Sleep Apnea: No Thyroid Disease: No Ulcer: No Tetanus Vaccination: < 5 Years Influenza Vaccination: Yes PNEUMOCCOCAL Vaccine (Year): 2 Past Surgical History Abdominal Surgery: No AICD: No Arteriovenous Shunt: No Body Medical Devices: precious left femur Cardiac Surgery: No Ear Surgery: No Endocrine Surgery: No Eye Surgery: No Genitourinary Surgery: No Gynecologic Surgery: No Hysterectomy: No Insulin Pump: No Joint Replacement: No Neurologic Surgery: No Oral Surgery: No Pacemaker: No Thoracic Surgery: Yes Other Surgery: Yes (2 BACK AND ONE NECK SURGERIES-microdiskectomy,left achilles tendon repair) Social History Alcohol Use: Yes (4x's per week with dinner) Tobacco Use: No Substance Use: Yes (marijuana) Allergies-Medications (Allergen,Severity, Reaction): Coded Allergies: codeine (Verified Allergy, Severe, RASH, 08/28/17) ibuprofen (Verified Allergy, Severe, Swelling, 08/28/17) of eyes levofloxacin (Verified Allergy, Severe, ACHILLES TENDON PROBLEM, 08/28/17) metronidazole (Verified Allergy, Severe, Nausea/Vomiting, 08/28/17) Reported Meds & Prescriptions Reported Meds & Active Scripts Active Floranex (Lactobacillus Acidophilus) 1 Gm Pkt 1 Gm PO TID Colestid (Colestipol HCl) 5 Gm Pkt 5 Gm PO Q12HR 1 packet of granules contains 5 grams of colestipol. Reported Lisinopril 20 Mg Tab 20 Mg PO DAILY Amlodipine (Amlodipine Besylate) 5 Mg Tab 5 Mg PO DAILY Xanax (Alprazolam) 0.5 Mg Tab 0.5 Mg PO Q12HR PRN Review of Systems Except as stated in HPI: all other systems reviewed are Neg Physical Exam Narrative GENERAL: 62 y/o male in no apparent distress SKIN: Focused skin assessment warm/dry. HEAD: Atraumatic. Normocephalic. EYES: Pupils equal and round. No scleral icterus. No injection or drainage. ENT: No nasal bleeding or discharge. Mucous membranes pink and moist. NECK: Trachea midline. CARDIOVASCULAR: Regular rate and rhythm. RESPIRATORY: No accessory muscle use. Clear to auscultation. Breath sounds equal bilaterally. GASTROINTESTINAL: Abdomen soft, mild tenderness to bilateral lower quadrants, nondistended. MUSCULOSKELETAL: No obvious deformities. No clubbing. No cyanosis. NEUROLOGICAL: Awake and alert. No obvious cranial nerve deficits. Motor grossly within normal limits. Normal speech. PSYCHIATRIC: Appropriate mood and affect; insight and judgment normal. Data Data Last Documented VS Vital Signs Date Time Temp Pulse Resp B/P (MAP) Pulse Ox O2 Delivery O2 Flow Rate FiO2 08/28/17 16:55 109 17 116/83 (94) 99 Room Air 08/28/17 14:02 98.4 Orders Orders Complete Blood Count With Diff (08/28/17 14:10) Comprehensive Metabolic Panel (08/28/17 14:10) Lipase (08/28/17 14:10) Ct Abd/Pel W Iv Contrast(Rout) (08/28/17 ) Iv Access Insert/Monitor (08/28/17 14:10) Oximetry (08/28/17 14:10) C Diff Toxin Pcr (08/28/17 14:10) Sodium Chlorid 0.9% 500 Ml Inj (Ns 500 M (08/28/17 14:15) Sodium Chlorid 0.9% 500 Ml Inj (Ns 500 M (08/28/17 16:30) Equip, Isolation Cart (08/28/17 16:40) Isolation (08/28/17 16:40) Piperacil-Tazo 3.375 Gm Premix (Zosyn 3. (08/28/17 18:15) Lactic Acid (08/28/17 18:12) Admit Order (Ed Use Only) (08/28/17 18:15) Labs Laboratory Tests Test 08/28/17 14:20 08/28/17 16:04 White Blood Count 13.7 TH/MM3 Red Blood Count 4.55 MIL/MM3 Hemoglobin 12.0 GM/DL Hematocrit 37.4 % Mean Corpuscular Volume 82.2 FL Mean Corpuscular Hemoglobin 26.4 PG Mean Corpuscular Hemoglobin Concent 32.1 % Red Cell Distribution Width 17.9 % Platelet Count 385 TH/MM3 Mean Platelet Volume 8.4 FL Neutrophils (%) (Auto) 78.1 % Lymphocytes (%) (Auto) 13.2 % Monocytes (%) (Auto) 7.3 % Eosinophils (%) (Auto) 0.2 % Basophils (%) (Auto) 1.2 % Neutrophils # (Auto) 10.7 TH/MM3 Lymphocytes # (Auto) 1.8 TH/MM3 Monocytes # (Auto) 1.0 TH/MM3 Eosinophils # (Auto) 0.0 TH/MM3 Basophils # (Auto) 0.2 TH/MM3 CBC Comment DIFF FINAL Differential Comment Blood Urea Nitrogen 27 MG/DL Creatinine 1.59 MG/DL Random Glucose 81 MG/DL Total Protein 8.4 GM/DL Albumin 4.4 GM/DL Calcium Level 9.5 MG/DL Alkaline Phosphatase 78 U/L Aspartate Amino Transf (AST/SGOT) 22 U/L Alanine Aminotransferase (ALT/SGPT) 19 U/L Total Bilirubin 1.0 MG/DL Sodium Level 136 MEQ/L Potassium Level 4.9 MEQ/L Chloride Level 104 MEQ/L Carbon Dioxide Level 15.8 MEQ/L Anion Gap 16 MEQ/L Estimat Glomerular Filtration Rate 44 ML/MIN Lipase 262 U/L MDM Medical Decision Making Medical Screen Exam Complete: Yes Emergency Medical Condition: Yes Medical Record Reviewed: Yes (pmh confirmed) Interpretation(s) CBC & BMP Diagram 08/28/17 14:20 Total Protein 8.4 H, Albumin 4.4, Calcium Level 9.5, Alkaline Phosphatase 78, Aspartate Amino Transf (AST/SGOT) 22, Alanine Aminotransferase (ALT/SGPT) 19, Total Bilirubin 1.0 Last 24 hours Impressions Abdomen/Pelvis CT 08/28/17 0000 Signed Impressions: Service Date/Time: Monday, August 28, 2017 17:24 - CONCLUSION: 1. Diffuse thickening involving the wall of the proximal and mid sigmoid colon consistent with probable acute diverticulitis. Clinical correlation is recommended. 2. Mild chronic compression deformity involving T11. 3. Stable bilateral renal cysts. 4. Degenerative changes and scoliosis of lumbar spine. Nilesh Simms MD Differential Diagnosis Diverticulitis, C. difficile colitis, dehydration, gastroenteritis Narrative Course We will check blood work, CT imaging and reevaluate. Received Zofran prior to arrival CT scan shows diverticulitis. Will dose with 1 dose of Zosyn. Patient updated and agrees to admission, lactic acid added on Sepsis Criteria SIRS Criteria (2 or more): Heart rate over 90, WBC > 14664, < 4000 or > 10% bands Sepsis Criteria (SIRS+source): Infect source susp/known Physician Communication Physician Communication dr mendenhall agrees to admit Diagnosis Primary Impression: Diverticulitis Additional Impression: Sepsis Qualified Codes: A41.9 - Sepsis, unspecified organism Admitting Information Admitting Physician Requests: it Della Thomas MD August 28, 2017 14:34
[2017-08-28 15:34] LABS: AUTOMATED NEUTROPHIL # 10.7 TH/MM3 (1.8-7.7); BASOPHIL # 0.2 TH/MM3 (0-0.2); BASOPHIL % 1.2 % (0.0-2.0); EOSINOPHIL % 0.2 % (0.0-4.0); HEMATOCRIT 37.4 % (39.0-51.0); LYMPH % 13.2 % (9.0-44.0); LYMPHOCYTE # 1.8 TH/MM3 (1.0-4.8); MEAN CELL VOLUME 82.2 FL (80.0-100.0); MEAN CORPUSCULAR HEMOGLOBIN 26.4 PG (27.0-34.0); MEAN CORPUSCULAR HGB CONC 32.1 % (32.0-36.0); MEAN PLATELET VOLUME 8.4 FL (7.0-11.0); MONO % 7.3 % (0.0-8.0); NEUT % 78.1 % (16.0-70.0); PLATELET COUNT 385 TH/MM3 (150-450); RED BLOOD COUNT 4.55 MIL/MM3 (4.50-5.90); RED CELL DISTRIBUTION WIDTH 17.9 % (11.6-17.2); WHITE BLOOD COUNT 13.7 TH/MM3 (4.0-11.0)
[2017-08-28 15:45] LABS: ALBUMIN 4.4 GM/DL (3.4-5.0); ALT (GPT) 19 U/L (12-78); BICARBONATE 15.8 MEQ/L (21.0-32.0); BLOOD UREA NITROGEN 27 MG/DL (7-18); CALCIUM 9.5 MG/DL (8.5-10.1); CHLORIDE 104 MEQ/L (98-107); CREATININE 1.59 MG/DL (0.60-1.30); GLOMERULAR FILTRATION RATE 44 ML/MIN (>89); GLUCOSE,RANDOM 81 MG/DL (74-106); SODIUM (NA) 136 MEQ/L (136-145)
[2017-08-28 15:52] LABS: ALKALINE PHOSPHATASE 78 U/L (45-117); AST (GOT) 22 U/L (15-37); TOTAL PROTEIN 8.4 GM/DL (6.4-8.2)
[2017-08-28 16:55] VITALS: BP 116/83; PULSE 109; RESP 17; O2SAT 99
--- NOTE | 2017-08-28 18:04 | RADRPT ---
EXAM DATE/TIME: 08/28/2017 17:24 [place] COMPARISON: CT ABDOMEN & PELVIS W CONTRAST, July 14, 2017, 17:43. INDICATIONS : Abdominal pain with nausea, vomiting and diarrhea. IV CONTRAST: 88 cc Omnipaque 350 (iohexol) IV ORAL CONTRAST: No oral contrast ingested. RADIATION DOSE: 6.57 CTDIvol (mGy) MEDICAL HISTORY : Cardiovascular disease. Pancreatitis. Seizures.GERD, Diverticulitis, C-diff SURGICAL HISTORY : None. ENCOUNTER: Initial ACUITY: 1 day PAIN SCALE: 8/10 LOCATION: abdomen TECHNIQUE: Volumetric scanning of the abdomen and pelvis was performed. Using automated exposure control and ad justment of the mA and/or kV according to patient size, radiation dose was kept as low as reasonably achievable to obtain optimal diagnostic quality images. DICOM format image data is available electro nically for review and comparison. FINDINGS: LOWER LUNGS: The visualized lower lungs are clear. LIVER: Homogeneous density without lesion. There is no dilation of the biliary tree. No calcified gallston es. SPLEEN: Normal size without lesion. PANCREAS: Within normal limits. KIDNEYS: Normal in size and shape. There is no mass, stone or hydronephrosis. There are stable bilateral page l cysts are ADRENAL GLANDS: Within normal limits. VASCULAR: There is no aortic aneurysm. BOWEL/MESENTERY: There is diffuse thickening involving the proximal and mid sigmoid colon suggestive of acute divertic ulitis. No pericolic abscess is noted. The appendix is normal. ABDOMINAL WALL: Within normal limits. RETROPERITONEUM: There is no lymphadenopathy. BLADDER: No wall thickening or mass. REPRODUCTIVE: Prostate is enlarged. INGUINAL: There is no lymphadenopathy or hernia. MUSCULOSKELETAL: Degenerative changes and scoliosis of the lumbar spine are noted. Mild chronic compression deformity involving T11 is noted. CONCLUSION: 1. Diffuse thickening involving the wall of the proximal and mid sigmoid colon consistent with probab le acute diverticulitis. Clinical correlation is recommended. 2. Mild chronic compression deformity involving T11. 3. Stable bilateral renal cysts. 4. Degenerative changes and scoliosis of lumbar spine. Nilesh Simms MD on August 28, 2017 at 17:56 Board Certified Radiologist. This report was verified electronically.
[2017-08-28] MEDS ORDERED: PIPERACIL-TAZO 3.375 GM PREMIX 50 ML IV ONE (18:15)
[2017-08-28] MEDS ORDERED: DICYCLOMINE HCL 20 MG/2 ML VIAL IM ONE (18:30)
[2017-08-28] MEDS ORDERED: BISACODYL 10 MG SUPP RECTAL PRN (18:30)
[2017-08-28] MEDS ORDERED: MAGNESIUM HYDROXIDE SUSP 30 ML CUP PO PRN (18:30)
[2017-08-28] MEDS ORDERED: ACETAMINOPHEN 325 MG TAB PO PRN (18:30)
[2017-08-28] MEDS ORDERED: LACTULOSE SYRUP 20 GM/30 ML CUP PO PRN (18:30)
[2017-08-28] MEDS ORDERED: SENNOSIDES 8.6 MG TAB PO PRN (18:30)
[2017-08-28] MEDS ORDERED: NALOXONE HCL 0.4 MG/ML AMP IV PUSH PRN (18:30)
[2017-08-28] MEDS ORDERED: SODIUM CHLORIDE 0.9% FLUSH 10 ML FLUSH IV FLUSH PRN (18:30)
[2017-08-28 18:45] VITALS: BP 136/90; PULSE 128; RESP 18; O2SAT 99
--- NOTE | 2017-08-28 19:29 | HHI.HP ---
HPI Service [facility] Primary Care Physician Yamil Collado DO Admission Diagnosis Diverticulitis Diagnoses: (1) C. difficile colitis Diagnosis: Principal (2) Diverticulitis Diagnosis: Principal (3) SHAVONNE (acute kidney injury) Diagnosis: Principal (4) Alcohol abuse Diagnosis: Principal Travel History International Travel<30 Days: No Contact w/Intl Traveler <30 Da: No Traveled to Known Affected Are: No History of Present Illness This is a 62-year-old male with a PMH of Recurrent C. difficile since 2015, Diverticulitis, and Alcohol Abuse who presented to the ER w/ complaints of diarrhea. Multiple admissions in the past w/ recurrent episodes of C. Diff, s/ p multiple treatments w/ Vanc PO due to ALLERGY to Flagyl. Most recent admit -08/09/17, C Diff negative 08/06/17, dc'd home on Vanc taper w/ plans to follow up w/ Dr. Kennedy as outpatient for Fecal Transplant. Pt states he was seen by Dr. Kennedy on Wednesday, is currently in the process of obtaining a donor for the fecal transplant, has follow up appt w/ Dr. Kennedy scheduled for 09/14/17 per patient, however returns now w/ ongoing diarrhea and c/o abdominal pain starting last night. States pain is intermittent, cramping, moderate 7/10, non- radiating, no alleviating factors. Denies nausea, vomiting or fever. On arrival, BP 143/95, HR 109, O2 sat 100% RA, Afebrile. WBC 13.7. Creatinine 1.59, previously 1.20 on 08/09/2017. C. difficile positive CT Abdomen/Pelvis with diffuse thickening involving the wall proximal and mid sigmoid colon consistent with probable acute diverticulitis. S/p Zosyn in ER. Review of Systems Except as stated in HPI: all other systems reviewed are Neg ROS: 14 point review of systems otherwise negative. Past Family Social History Past Medical History PMH: Recurrent C. difficile since 2015, Diverticulitis, and Alcohol Abuse Past Surgical History PAST SURGICAL HISTORY: Left Femur, Lumbar Surgery, Left Achilles Tendon Repair Allergies: Coded Allergies: codeine (Verified Allergy, Severe, RASH, 08/28/17) ibuprofen (Verified Allergy, Severe, Swelling, 08/28/17) of eyes levofloxacin (Verified Allergy, Severe, ACHILLES TENDON PROBLEM, 08/28/17) metronidazole (Verified Allergy, Severe, Nausea/Vomiting, 08/28/17) Family History PAST FAMILY HISTORY: Reviewed. No h/o DM or CAD Social History PAST SOCIAL HISTORY: Positive for alcohol, positive for marijuana. Negative for tobacco. Physical Exam Vital Signs Vital Signs Date Time Temp Pulse Resp B/P (MAP) Pulse Ox O2 Delivery O2 Flow Rate FiO2 08/28/17 18:45 128 18 136/90 (105) 99 Room Air 08/28/17 16:55 109 17 116/83 (94) 99 Room Air 08/28/17 14:14 100 Room Air 08/28/17 14:02 98.4 109 16 143/95 (111) 100 Physical Exam PE: GENERAL: Pleasant middle-aged white male in no acute distress. Mildly tremulous. HEENT: PERRLA, EOMI. No scleral icterus or conjunctival pallor. No lid lag or facial droop. CARDIOVASCULAR: Regular rate and rhythm. No obvious murmurs to auscultation. No chest tenderness to palpation. RESPIRATORY: No obvious rhonchi or wheezing. Clear to auscultation. Breath sounds equal bilaterally. GASTROINTESTINAL: Abdomen soft, mild diffuse tenderness to palpation, nondistended. BS normal. MUSCULOSKELETAL: Extremities without clubbing, cyanosis, or edema. No obvious deformities. NEUROLOGICAL: Awake, alert and oriented x4. No focal neurologic deficits. Moving both upper and lower extremities spontaneously. Laboratory Laboratory Tests Test 08/28/17 14:20 08/28/17 16:04 08/28/17 17:56 White Blood Count 13.7 Red Blood Count 4.55 Hemoglobin 12.0 Hematocrit 37.4 Mean Corpuscular Volume 82.2 Mean Corpuscular Hemoglobin 26.4 Mean Corpuscular Hemoglobin Concent 32.1 Red Cell Distribution Width 17.9 Platelet Count 385 Mean Platelet Volume 8.4 Neutrophils (%) (Auto) 78.1 Lymphocytes (%) (Auto) 13.2 Monocytes (%) (Auto) 7.3 Eosinophils (%) (Auto) 0.2 Basophils (%) (Auto) 1.2 Neutrophils # (Auto) 10.7 Lymphocytes # (Auto) 1.8 Monocytes # (Auto) 1.0 Eosinophils # (Auto) 0.0 Basophils # (Auto) 0.2 CBC Comment DIFF FINAL Differential Comment Blood Urea Nitrogen 27 Creatinine 1.59 Random Glucose 81 Total Protein 8.4 Albumin 4.4 Calcium Level 9.5 Alkaline Phosphatase 78 Aspartate Amino Transf (AST/SGOT) 22 Alanine Aminotransferase (ALT/SGPT) 19 Total Bilirubin 1.0 Sodium Level 136 Potassium Level 4.9 Chloride Level 104 Carbon Dioxide Level 15.8 Anion Gap 16 Estimat Glomerular Filtration Rate 44 Lipase 262 Stool C. difficile Toxin (PCR) POSITIVE Stl C. difficile Toxin Epiderm 027 PRESUMPTIVE NEGATIVE Lactic Acid Level 0.9 Date/Time Source Procedure Growth Status 08/28/17 18:56 Blood Peripheral Aerobic Blood Culture Pending Received 08/28/17 18:56 Blood Peripheral Anaerobic Blood Culture Pending Received Result Diagram: 08/28/17 1420 08/28/17 1420 Caprini VTE Risk Assessment Caprini VTE Risk Assessment: No/Low Risk (score <= 1) Caprini Risk Assessment Model Point Value = 1 Point Value = 2 Point Value = 3 Point Value = 5 Age 41-60 Minor surgery BMI > 25 kg/m2 Swollen legs Varicose veins or History of unexplained or recurrent spontaneous Oral contraceptives or hormone replacement Sepsis (< 1 month) Serious lung disease, including pneumonia (< 1 month) Abnormal pulmonary function Acute myocardial infarction Congestive heart failure (< 1 month) History of inflammatory bowel disease Medical patient at bed rest Age 61-74 Arthroscopic surgery Major open surgery (> 45 min) Laparoscopic surgery (> 45 min) Malignancy Confined to bed (> 72 hours) Immobilizing plaster cast Central venous access Age >= 75 History of VTE Family history of VTE Factor V Leiden Prothrombin [id number] Lupus anticoagulant Anticardiolipin antibodies Elevated serum homocysteine Heparin-induced thrombocytopenia Other congenital or acquired thrombophilia Stroke (< 1 month) Elective arthroplasty Hip, pelvis, or leg fracture Acute spinal cord injury (< 1 month) Prophylaxis Regimen Total Risk Factor Score Risk Level Prophylaxis Regimen 0-1 Low Early ambulation 2 Moderate Order ONE of the following: *Sequential Compression Device (SCD) *Heparin 5000 units SQ BID 3-4 Higher Order ONE of the following medications: *Heparin 5000 units SQ TID *Enoxaparin/Lovenox 40 mg SQ daily (WT < 150 kg, CrCl > 30 mL/min) *Enoxaparin/Lovenox 30 mg SQ daily (WT < 150 kg, CrCl > 10-29 mL/min) *Enoxaparin/Lovenox 30 mg SQ BID (WT < 150 kg, CrCl > 30 mL/min) AND/OR *Sequential Compression Device (SCD) 5 or more Highest Order ONE of the following medications: *Heparin 5000 units SQ TID (Preferred with Epidurals) *Enoxaparin/Lovenox 40 mg SQ daily (WT < 150 kg, CrCl > 30 mL/min) *Enoxaparin/Lovenox 30 mg SQ daily (WT < 150 kg, CrCl > 10-29 mL/min) *Enoxaparin/Lovenox 30 mg SQ BID (WT < 150 kg, CrCl > 30 mL/min) AND *Sequential Compression Device (SCD) Assessment and Plan Problem List: (1) C. difficile colitis ICD Code: A04.7 - Enterocolitis due to Clostridium difficile Status: Acute (2) Diverticulitis ICD Code: K57.92 - Diverticulitis of intestine, part unspecified, without perforation or abscess without bleeding (3) SHAVONNE (acute kidney injury) ICD Code: N17.9 - Acute kidney failure, unspecified Status: Resolved (4) Alcohol abuse ICD Code: F10.10 - Alcohol abuse, uncomplicated Status: Chronic Assessment and Plan A/P: 1. C Diff Colitis: Recurrent. Following w/ Dr. Kennedy as outpatient, on multiple courses of Vanc PO in light of ALLERGY to Flagyl, currently pending fecal transplant, now w/ recurrent abdominal pain and diarrhea. C Diff +. Will start Dificid 200mg bid. Consult Dr. Kennedy for further evaluation, consult ID for recommendations on antibiotic regimen in light of multiple recurrences since 2016. Resume home Colestipol and Lactobacillus. Isolation Special Contact C 2. Diverticulitis: H/o Diverticulitis, CT Abd/Pelvis w/ wall thickening consistent w/ diverticulitis, possibly compounded by C Diff colitis, in light of recurrent disease will continue w/ IV Zosyn for Diverticulitis. 3. SHAVONNE: Creatinine 1.59, previously 1.20 on 08/09/17, IVF for hydration, repeat labs in am 4. Alcohol Abuse: +mild tremor, CIWA, Seizure Precautions, MVT/Thiamine/ Folate replacement. 5. DVT Prophylaxis: SCD/Teds 6. Social work for d/c planning as needed. 7. Case discussed w/ ER physician at length, labs/records/imaging reviewed by me. Physician Certification 2 Midnight Certification Type: Admission for Inpatient Services Order for Inpatient Services The services are ordered in accordance with Medicare regulations or non- Medicare payer requirements, as applicable. In the case of services not specified as inpatient-only, they are appropriately provided as inpatient services in accordance with the 2-midnight benchmark. Estimated LOS (days): 2 days is the estimated time the patient will need to remain in the hospital, assuming treatment plan goals are met and no additional complications. Post-Hospital Plan: Not yet determined Linda Stovall MD August 28, 2017 19:29
[2017-08-28] MEDS ORDERED: FLUMAZENIL 0.5 MG/5 ML VIAL IV PUSH PRN (19:30)
[2017-08-28] MEDS ORDERED: LORazepam 1 MG TAB PO PRN (19:30)
[2017-08-28] MEDS ORDERED: LORazepam 2 MG/ML VIAL IV PUSH PRN ×4 (19:30)
[2017-08-28] MEDS ORDERED: LORazepam 2 MG TAB PO PRN (19:30)
[2017-08-28] MEDS ORDERED: HALOPERIDOL LACTATE 5 MG/ML AMP IM PRN (19:30)
[2017-08-28 20:00] VITALS: BP 141/84; PULSE 95; RESP 18; TEMP 97.5; O2SAT 100
[2017-08-28] MEDS: SODIUM CHLOR 0.9% 1000 ML INJ 1,000 ML IV SCH (20:21)
[2017-08-28] MEDS ORDERED: VANCOMYCIN 500 MG VIAL (FOR ORAL USE ONLY) PO SCH (21:00)
[2017-08-28] MEDS: SODIUM CHLORIDE 0.9% FLUSH 10 ML FLUSH IV FLUSH SCH (21:00)
[2017-08-28] MEDS ORDERED: IOHEXOL 350 MG/ML 10 ML VIAL (for RAD DIAG) IVCONTRAST ONE (21:24)
[2017-08-28] MEDS: ONDANSETRON HCL 4 MG/2 ML VIAL IVP PRN (22:03)
[2017-08-28] MEDS: THIAMINE HCL 100 MG TAB PO SCH (22:04)
[2017-08-28] MEDS: COLESTIPOL HCL 5 GM PACKET PO SCH (22:04)
[2017-08-28] MEDS: FIDAXOMICIN 200 MG TAB PO SCH (22:04)
[2017-08-29] VITALS: BP 160/101; PULSE 106; RESP 18; O2SAT 99
[2017-08-29] MEDS: SODIUM CHLOR 0.9% 1000 ML INJ 1,000 ML IV SCH ×2 (01:05→20:14)
[2017-08-29] MEDS ORDERED: PIPERACIL-TAZO 3.375 GM PREMIX 50 ML IV SCH (02:00)
[2017-08-29] MEDS: ONDANSETRON HCL 4 MG/2 ML VIAL IVP PRN (07:51)
[2017-08-29 08:00] VITALS: BP 135/83; PULSE 94; RESP 16; TEMP 97.6; O2SAT 100
[2017-08-29 08:01] LABS: AUTOMATED NEUTROPHIL # 8.8 TH/MM3 (1.8-7.7); BASOPHIL # 0.1 TH/MM3 (0-0.2); BASOPHIL % 0.6 % (0.0-2.0); EOSINOPHIL # 0.1 TH/MM3 (0-0.4); EOSINOPHIL % 0.5 % (0.0-4.0); HEMATOCRIT 34.6 % (39.0-51.0); HEMOGLOBIN 10.9 GM/DL (13.0-17.0); LYMPH % 15.5 % (9.0-44.0); LYMPHOCYTE # 1.8 TH/MM3 (1.0-4.8); MEAN CELL VOLUME 83.7 FL (80.0-100.0); MEAN CORPUSCULAR HEMOGLOBIN 26.3 PG (27.0-34.0); MEAN CORPUSCULAR HGB CONC 31.4 % (32.0-36.0); MEAN PLATELET VOLUME 8.4 FL (7.0-11.0); MONO % 9.9 % (0.0-8.0); MONOCYTE # 1.2 TH/MM3 (0-0.9); NEUT % 73.5 % (16.0-70.0); PLATELET COUNT 322 TH/MM3 (150-450); RED BLOOD COUNT 4.13 MIL/MM3 (4.50-5.90); RED CELL DISTRIBUTION WIDTH 17.7 % (11.6-17.2); WHITE BLOOD COUNT 11.9 TH/MM3 (4.0-11.0)
[2017-08-29] MEDS ORDERED: MORPHINE SULFATE 4 MG/ML INJ IV ONE (08:30)
[2017-08-29 08:37] LABS: ALBUMIN 3.8 GM/DL (3.4-5.0); ALKALINE PHOSPHATASE 68 U/L (45-117); ALT (GPT) 16 U/L (12-78); AST (GOT) 19 U/L (15-37); BICARBONATE 19.3 MEQ/L (21.0-32.0); BLOOD UREA NITROGEN 31 MG/DL (7-18); CALCIUM 8.6 MG/DL (8.5-10.1); CHLORIDE 107 MEQ/L (98-107); CREATININE 1.77 MG/DL (0.60-1.30); GLOMERULAR FILTRATION RATE 39 ML/MIN (>89); GLUCOSE,RANDOM 90 MG/DL (74-106); SODIUM (NA) 138 MEQ/L (136-145); TOTAL PROTEIN 7.6 GM/DL (6.4-8.2)
[2017-08-29] MEDS: SODIUM CHLORIDE 0.9% FLUSH 10 ML FLUSH IV FLUSH SCH ×2 (09:00→20:14)
[2017-08-29] MEDS: COLESTIPOL HCL 5 GM PACKET PO SCH ×2 (09:00→20:14)
[2017-08-29] MEDS: LACTOBACILLUS ACIDOPHILUS 1 GM PACKET PO SCH ×3 (09:12→18:00)
[2017-08-29] MEDS: FOLIC ACID 1 MG TAB PO SCH (09:13)
[2017-08-29] MEDS: amLODIPine BESYLATE 5 MG TAB PO SCH (09:13)
[2017-08-29] MEDS: MULTIVITAMINS/MINERALS THERAPEUTIC TAB PO SCH (09:13)
[2017-08-29] MEDS: THIAMINE HCL 100 MG TAB PO SCH (09:13)
[2017-08-29] MEDS: LISINOPRIL 20 MG TAB PO SCH (09:13)
[2017-08-29] MEDS: FIDAXOMICIN 200 MG TAB PO SCH ×2 (09:13→20:14)
[2017-08-29] MEDS: MORPHINE SULFATE 4 MG/ML INJ IV PUSH PRN ×3 (09:16→22:45)
[2017-08-29] MEDS ORDERED: VANCOMYCIN 500 MG VIAL (FOR ORAL USE ONLY) PO ONE (10:30)
--- NOTE | 2017-08-29 10:51 | PD.ID.CON ---
History of Present Illness Service Infectious disease Consult Requested By Hospitalist service Reason for Consult Evaluation and management of recurrent C. difficile infection Primary Care Physician Yamil Collado DO Diagnoses: History of Present Illness Patient seen and examined on behalf of Dr. Henderson This is a 62-year-old male with past medical history significant for hypertension, diverticulitis, GERD, history of pancreatitis secondary to alcohol binge, chronic renal insufficiency and recurrent Clostridium difficile infection who is well-known to our service from previous hospitalization for treatment of recurrent C. difficile who presents to [facility] with complaints of acute onset of nausea, vomiting, abdominal pain and watery diarrhea 1 day. Patient states that last night he developed acute onset of his symptoms with ongoing diarrhea occurring every half hour and progressive abdominal pain. He denies any fever or chills at home. Patient has a lengthy history of recurrent C. difficile infections starting approximately 3 years ago after he was given IV Levaquin and oral Bactrim. Patient has had multiple hospitalizations for recurrent infection treated with oral vancomycin. Patient has an allergy to Flagyl. Patient's most recent admission was on 08/06/17 at that time his C. difficile study was actually negative and he was treated with po Dificid and Vancomycin discharged home on vancomycin taper. Patient follows with Dr. Kennedy as outpatient and is scheduled to undergo fecal transplant 2017. Patient denies any antibiotic use since his last hospitalization. He denies any known exposure to C. difficile. He and his girlfriend live together and she has contracted C. difficile twice the last time being a year and a half ago. Patient states he is very diligent about using Clorox bleach in the home in attempt to prevent recurrence. Patient reports that he has had for endoscopic procedures in the past 3 years and most recently had a flexible sigmoidoscopy 04/22/[address] Walsh and was found to have diverticulosis, colon polyp and nonbleeding hemorrhoids with pathology revealing slightly thickened basement membrane insufficient for definitive diagnosis of collagenous colitis. In the ED, patient presented with sepsis with white count of 13.7, tachycardia with heart rate of 128 and source of C. difficile infection. Lactic acid 0.9, Anion gap of 16. CT of abdomen pelvis revealed diffuse thickening involving the proximal and mid sigmoid colon suggestive of acute diverticulitis. Patient was started on oral Dificid and IV Zosyn. Infectious disease consultation has been requested for evaluation and management of recurrent C. difficile infection. Patient seen and examined. He is afebrile. His white count is trending down. Patient states he continues to have copious amounts of watery diarrhea occurring every half hour. He complains of nausea and has vomited twice since admission and believes he is having a reaction to Zosyn. He continues to have significant diffuse abdominal pain. He denies any complaints of fever or chills. He denies any chest pain or shortness of breath. He denies any complaints of dysuria. (Angela Berger) Review of Systems Except as stated in HPI: all other systems reviewed are Neg (Angela Berger) Past Family Social History Allergies: Coded Allergies: codeine (Verified Allergy, Severe, RASH, 08/28/17) ibuprofen (Verified Allergy, Severe, Swelling, 08/28/17) of eyes levofloxacin (Verified Allergy, Severe, ACHILLES TENDON PROBLEM, 08/28/17) metronidazole (Verified Allergy, Severe, Nausea/Vomiting, 08/28/17) Past Medical History Recurrent C difficile infection Hypertension History of diverticulitis Chronic renal insufficiency GERD Arthritis History of pancreatitis after binge drinking following his divorce History of Herpes zoster Hx of possible small sigmoid abscess with CT abd/pelvis 07/14/17 showing 2.3 x 1.5 cm rim-enhancing fluid collection the distal sigmoid colonic wall, possibly a small abscess of other significant inflammatory change is identified in the surrounding soft tissues. Hx of Klebsiella Pneumoniae bacteremia Past Surgical History Left-sided chest tube [place] rectal surgery Lumbar surgery 2 Cervical spine surgery Left Achilles tendon repair Left hip hemiarthroplasty Reported Medications Floranex (Lactobacillus Acidophilus) 1 Gm Pkt 1 Gm PO TID Colestid (Colestipol HCl) 5 Gm Pkt 5 Gm PO Q12HR 1 packet of granules contains 5 grams of colestipol. Lisinopril 20 Mg Tab 20 Mg PO DAILY Amlodipine (Amlodipine Besylate) 5 Mg Tab 5 Mg PO DAILY Xanax (Alprazolam) 0.5 Mg Tab 0.5 Mg PO Q12HR PRN Active Ordered Medications IV Zosyn PO Dificid Current Medications Medications (Trade) Dose Ordered Sig/Quin Route Start Time Stop Time Status Last Admin Sodium Chloride 1,000 ml @ 100 mls/hr Q10H IV 08/28/17 18:21 5/6/18 01:05 (NS Flush) 2 ml UNSCH PRN IV FLUSH 08/28/17 18:30 (NS Flush) 2 ml BID IV FLUSH 08/28/17 21:00 08/29/17 09:00 (Tylenol) 650 mg Q4H PRN PO 08/28/17 18:30 (Zofran Inj) 4 mg Q6H PRN IVP 08/28/17 18:30 08/29/17 07:51 (Narcan Inj) 0.4 mg UNSCH PRN IV PUSH 08/28/17 18:30 (Milk Of Magnesia Liq) 30 ml Q12H PRN PO 08/28/17 18:30 (Senokot) 17.2 mg Q12H PRN PO 08/28/17 18:30 (Dulcolax Supp) 10 mg DAILY PRN RECTAL 08/28/17 18:30 (Lactulose Liq) 30 ml DAILY PRN PO 08/28/17 18:30 (Xanax) 0.5 mg Q12HR PRN PO 08/28/17 18:30 (Norvasc) 5 mg DAILY PO 08/29/17 09:00 08/29/17 09:13 (Colestipol Pkt) 5 gm Q12HR PO 08/28/17 21:00 08/29/17 09:00 (Lactinex Pkt) 1 gm TID PO 08/29/17 09:00 08/29/17 09:12 (Prinivil) 20 mg DAILY PO 08/29/17 09:00 08/29/17 09:13 Piperacillin Sod/ Tazobactam Sod 50 ml @ 100 mls/hr Q8H IV 08/29/17 02:00 08/29/17 01:05 (Folate) 1 mg DAILY PO 08/29/17 09:00 09/03/17 08:59 08/29/17 09:13 (Vitamin B1) 100 mg DAILY PO 08/28/17 21:00 08/29/17 09:13 (Theragran M Tab) 1 tab DAILY PO 08/29/17 09:00 09/03/17 08:59 08/29/17 09:13 (Romazicon Inj) 0.2 mg Q1M PRN IV PUSH 08/28/17 19:30 (Ativan) 1 mg Q4H PRN PO 08/28/17 19:30 (Ativan Inj) 1 mg Q4H PRN IV PUSH 08/28/17 19:30 (Ativan) 2 mg Q2H PRN PO 08/28/17 19:30 (Ativan Inj) 2 mg Q2H PRN IV PUSH 08/28/17 19:30 (Ativan Inj) 2 mg Q1H PRN IV PUSH 08/28/17 19:30 (Ativan Inj) 2 mg Q15M PRN IV PUSH 08/28/17 19:30 (Haldol Inj) 2 mg Q15M PRN IM 08/28/17 19:30 (Dificid) 200 mg BID PO 08/28/17 21:00 09/07/17 20:59 08/29/17 09:13 (Morphine Inj) 4 mg Q3H PRN IV PUSH 08/29/17 08:00 08/29/17 09:16 (Morphine Inj) 2 mg Q3H PRN IV PUSH 08/29/17 08:00 Family History Reviewed and noncontributory to current ID problems Social History Patient denies any tobacco use. Reports alcohol consumption. Admits to smoking marijuana on occasions. Patient currently resides with his girlfriend. (Angela Berger) Physical Exam Vital Signs Vital Signs Date Time Temp Pulse Resp B/P (MAP) Pulse Ox O2 Delivery O2 Flow Rate FiO2 08/29/17 08:00 97.6 94 16 135/83 (100) 100 08/29/17 05:52 21 08/29/17 00:00 106 18 160/101 (120) 99 08/28/17 20:57 08/28/17 20:00 97.5 95 18 141/84 (103) 100 08/28/17 18:45 128 18 136/90 (105) 99 Room Air 08/28/17 16:55 109 17 116/83 (94) 99 Room Air 08/28/17 14:14 100 Room Air 08/28/17 14:02 98.4 109 16 143/95 (111) 100 Physical Exam GENERAL: This is a well-nourished, well-developed male patient, in no apparent distress. Awake and alert. SKIN: No rashes, ecchymoses or lesions. Cool and dry. HEAD: Atraumatic. Normocephalic. No temporal or scalp tenderness. EYES: Pupils equal round and reactive. Extraocular motions intact. No scleral icterus. No injection or drainage. ENT: Nose without bleeding or purulent drainage. Throat without erythema, tonsillar hypertrophy or exudate. Uvula midline. Airway patent. NECK: Trachea midline. No lymphadenopathy. Supple, nontender, no meningeal signs. CARDIOVASCULAR: Regular rate and rhythm without murmurs, gallops, or rubs. RESPIRATORY: Clear to auscultation. Breath sounds equal bilaterally. No wheezes , rales, or rhonchi. GASTROINTESTINAL: Abdomen soft, nondistended. + diffusely tender to palpation in all 4 quadrants. No hepato-splenomegaly, or palpable masses. No guarding. MUSCULOSKELETAL: Extremities without clubbing, cyanosis, or edema. No joint tenderness, effusion, or edema noted. No calf tenderness. NEUROLOGICAL: Awake and alert. Cranial nerves II through XII grossly intact. Motor and sensory grossly within normal limits. No focal neurologic findings appreciated. Normal speech. PSYCHIATRIC: Appropriate mood and affect. Normal judgment and insight. PIV with no e/o infection Laboratory Laboratory Tests Test 08/28/17 14:20 08/28/17 16:04 08/28/17 17:56 08/29/17 06:55 White Blood Count 13.7 11.9 Red Blood Count 4.55 4.13 Hemoglobin 12.0 10.9 Hematocrit 37.4 34.6 Mean Corpuscular Volume 82.2 83.7 Mean Corpuscular Hemoglobin 26.4 26.3 Mean Corpuscular Hemoglobin Concent 32.1 31.4 Red Cell Distribution Width 17.9 17.7 Platelet Count 385 322 Mean Platelet Volume 8.4 8.4 Neutrophils (%) (Auto) 78.1 73.5 Lymphocytes (%) (Auto) 13.2 15.5 Monocytes (%) (Auto) 7.3 9.9 Eosinophils (%) (Auto) 0.2 0.5 Basophils (%) (Auto) 1.2 0.6 Neutrophils # (Auto) 10.7 8.8 Lymphocytes # (Auto) 1.8 1.8 Monocytes # (Auto) 1.0 1.2 Eosinophils # (Auto) 0.0 0.1 Basophils # (Auto) 0.2 0.1 CBC Comment DIFF FINAL DIFF FINAL Differential Comment Blood Urea Nitrogen 27 31 Creatinine 1.59 1.77 Random Glucose 81 90 Total Protein 8.4 7.6 Albumin 4.4 3.8 Calcium Level 9.5 8.6 Alkaline Phosphatase 78 68 Aspartate Amino Transf (AST/SGOT) 22 19 Alanine Aminotransferase (ALT/SGPT) 19 16 Total Bilirubin 1.0 1.0 Sodium Level 136 138 Potassium Level 4.9 4.4 Chloride Level 104 107 Carbon Dioxide Level 15.8 19.3 Anion Gap 16 12 Estimat Glomerular Filtration Rate 44 39 Lipase 262 Stool C. difficile Toxin (PCR) POSITIVE Stl C. difficile Toxin Epiderm 027 PRESUMPTIVE NEGATIVE Lactic Acid Level 0.9 Date/Time Source Procedure Growth Status 08/28/17 18:56 Blood Peripheral Aerobic Blood Culture Pending Received 08/28/17 18:56 Blood Peripheral Anaerobic Blood Culture Pending Received (Angela Berger) Result Diagram: 08/29/17 0655 08/29/17 0655 Imaging Last Impressions Abdomen/Pelvis CT 08/28/17 0000 Signed Impressions: Service Date/Time: Monday, August 28, 2017 17:24 - CONCLUSION: 1. Diffuse thickening involving the wall of the proximal and mid sigmoid colon consistent with probable acute diverticulitis. Clinical correlation is recommended. 2. Mild chronic compression deformity involving T11. 3. Stable bilateral renal cysts. 4. Degenerative changes and scoliosis of lumbar spine. Nilesh Simms MD (Angela Berger) Assessment and Plan Assessment and Plan Sepsis with leukocytosis, tachycardia and suspected source of C. difficile positive infection C. difficile diarrhea/colitis ?acute diverticulitis -CT abd/pelvis reveals diffuse thickening involving the proximal and mid sigmoid colon suggestive of acute diverticulitis -GI consulted Leukocytosis secondary to C. difficile infection, white count trending down Acute on chronic renal insufficiency, suspect secondary to dehydration/volume depletion, worsening -creatinine increased from 1.59 to 1.77 History of recurrent C. difficile -Patient follows with Dr. Kennedy as outpatient and is scheduled to undergo fecal transplant 09/14/17 Hx of diverticulitis ?sigmoid abscess per CT abd/pelvis 07/14/17 Hx of Klebsiella Pneumoniae bacteremia 2017 HTN Hx of alcohol abuse and pancreatitis Marijuana use RECOMMENDATIONS: Hold IV Zosyn for now Continue on po Dificid Start on oral Vancomycin 250mg q6h Consider Vancomycin enema, will discuss further with GI follow up on blood culture results obtain stool studies to r/o other pathogens IV hydration monitor kidney function, avoid nephrotoxic agents Monitor stools Monitor clinically Will continue to follow with you (Angela Berger) Assessment and Plan The exam, history, and the medical decision-making described in the above note were completed with the assistance of the mid-level provider. I reviewed and agree with the findings presented. I attest that I had a [id number] encounter with the patient on the same day, and personally performed and documented my assessment and findings in the medical record. Complains of abd pain Complains of nausea and vomiting with Zosyn IV. Exam: Abd diffuse tenderness. Acute Diverticulitis Cdiff positive diarrhea Recs DC Zosyn IV Start Ertapenem IV (ASP: see order for ertapenem IV for documentation) Continue Oral vanco Follow cultures Follow clinically. Reviewed notes to treat patient as diverticulitis. (Matilda Henderson MD) Angela Berger August 29, 2017 10:51 Matilda Henderson MD August 29, 2017 20:32
[2017-08-29 12:00] VITALS: BP 147/85; PULSE 96; RESP 16; TEMP 97.7; O2SAT 100
[2017-08-29] MEDS: VANCOMYCIN 500 MG VIAL (FOR ORAL USE ONLY) PO SCH ×3 (13:32→22:45)
[2017-08-29 16:00] VITALS: BP 139/83; PULSE 91; RESP 15; TEMP 97.9; O2SAT 100
--- NOTE | 2017-08-29 16:10 | MB ---
cc: Miguel Kennedy MD DATE: 08/29/2017 REASON FOR CONSULTATION: C. difficile diverticulitis. HISTORY OF PRESENT ILLNESS: This is a 62-year-old, very pleasant gentleman, known to me from the office from recent visits due to recurrent C. difficile and evaluation for possible fecal microbiota transplantation. He has had recurrent C. difficile on and off over the past 3 years. Due to multiple hospitalizations in the past he has required use of oral vancomycin and Dificid. Most recently, he was hospitalized in July for C. difficile attack and was on oral vancomycin and Dificid and eventually discharged home. He is in the process of getting a fecal transplant. It was tentatively scheduled for 09/14/2017. His initial setback has been able to get an appropriate donor screened. In the meantime, he has been in usual state of health until last night. He had a sudden bout of nausea, vomiting, pain in the left lower quadrant associated with profuse loose watery bowel movements every 1 hour. Due to the severity of his symptoms, he finally came into the hospital for further workup and evaluation of underwent a CT scan and was found to have bowel wall thickening in the sigmoid colon consistent with diverticulitis. In addition to that stool studies were also done showing a C. difficile PCR which was positive. ID has been consulted for help in the management of the infectious process. Since initiating medications his clinical symptoms have actually improved. He states his diarrhea has lessened. PAST MEDICAL HISTORY: 1. Recurrent Clostridium difficile infection. 2. Hypertension. 3. History of diverticulitis. 4. CKD. 5. Gastroesophageal reflux disease. 6. Arthritis. 7. History of pancreatitis. PAST SURGICAL HISTORY: 1. Lumbar surgery. 2. Cervical spine surgery. 3. Left Achilles tendon repair. 4. Hip surgery. ALLERGIES: 1. CODEINE. 2. IBUPROFEN. 3. LEVAQUIN WHICH CAUSED ACHILLES TENDON RUPTURE. 4. METRONIDAZOLE CAUSED SEVERE NAUSEA AND VOMITING. FAMILY HISTORY: No GI malignancy. SOCIAL HISTORY: Denies tobacco use. Drinks alcohol occasionally. REVIEW OF SYSTEMS: A 12-point review of system was obtained by me and showed to be negative or noncontributory except as mentioned in the HPI. PHYSICAL EXAMINATION: VITAL SIGNS: Temperature 97.7, respirations 16, heart rate 96, blood pressure 147/85, 100% on room air. GENERAL: Alert, oriented. HEENT: Pupils equal, round, reactive to light. Extraocular movements are intact. Normocephalic, atraumatic. NECK: Supple, nontender. No carotid bruits noted. HEART: Regular rate and rhythm. No murmurs heard. LUNGS: CTAB. No wheezes. ABDOMEN: Soft, nontender, nondistended. Bowel sounds present in all 4 quadrants. GENITOURINARY: No CVA angle tenderness noted. MUSCULOSKELETAL: Normal upper and lower extremity strength. NEUROLOGIC: Alert, oriented. No focal deficits. PSYCHIATRIC: Appropriate for mood and affect. LABORATORY DATA: WBC 11.9, improved from 13.7, hemoglobin 10.9, platelet count of 322. Stool C. difficile PCR positive. IMAGING: CT scan of the abdomen and pelvis, diffuse thickening involving the proximal, mid sigmoid colon suggestive of acute diverticulitis. No pericolonic abscess identified. IMPRESSION: 1. Acute diverticulitis. 2. Recurrent Clostridium difficile infection. 3. Abdominal pain. 4. Diarrhea secondary to above. 5. Recurrent chronic anemia. No evidence of active acute overt GI bleeding. RECOMMENDATIONS: 1. Slowly advance diet as tolerated. 2. Continue medications including oral vancomycin and Dificid 200 mg p.o. b.i.d. The patient was given Zosyn yesterday and he tells me he had severe nausea, vomiting symptoms from it. Alternatively, he is unable to tolerate levofloxacin due to the history of Achilles tendon rupture. 3. Continue antibiotic per ID recommendations. 4. Our eventual plan for fecal transplant will have to be delayed by about 6 weeks from now. At this time, I have advised him to have his donor appropriately screened as per my protocol from the office and once this is achieved, once he clears his diverticulitis attack, I will get him rescheduled outpatient for a fecal transplant. I had a long discussion with the patient and answered all of his questions to his satisfaction. Thank you for allowing [facility] to participate in the care of the patient. Miguel Kennedy MD KRP/TL , 03:26 PM , 04:08 PM
--- NOTE | 2017-08-29 17:07 | HHI.PR ---
Subjective Remarks The patient states that abdominal pain is improving. States that last night he was very nauseous and vomited several times and had diarrhea. States stool is loose however is watery. Denies fevers or chills. Objective Vitals Vital Signs Date Time Temp Pulse Resp B/P (MAP) Pulse Ox O2 Delivery O2 Flow Rate FiO2 08/29/17 12:00 97.7 96 16 147/85 (105) 100 08/29/17 08:00 97.6 94 16 135/83 (100) 100 08/29/17 05:52 21 08/29/17 00:00 106 18 160/101 (120) 99 08/28/17 20:57 08/28/17 20:00 97.5 95 18 141/84 (103) 100 08/28/17 18:45 128 18 136/90 (105) 99 Room Air I/O 08/28/17 08/28/17 08/28/17 08/29/17 08/29/17 08/29/17 07:00 15:00 23:00 07:00 15:00 23:00 Intake Total 1050 ml 1050 ml Balance 1050 ml 1050 ml Intake IV Total 1050 ml 1050 ml Result Diagram: 08/29/17 0655 08/29/17 0655 Imaging Last Impressions Abdomen/Pelvis CT 08/28/17 0000 Signed Impressions: Service Date/Time: Monday, August 28, 2017 17:24 - CONCLUSION: 1. Diffuse thickening involving the wall of the proximal and mid sigmoid colon consistent with probable acute diverticulitis. Clinical correlation is recommended. 2. Mild chronic compression deformity involving T11. 3. Stable bilateral renal cysts. 4. Degenerative changes and scoliosis of lumbar spine. Nilesh Simms MD Objective Remarks GENERAL: Pleasant middle-aged white male in no acute distress. Mildly tremulous. HEENT: PERRLA, EOMI. No scleral icterus or conjunctival pallor. No lid lag or facial droop. CARDIOVASCULAR: Regular rate and rhythm. No obvious murmurs to auscultation. No chest tenderness to palpation. RESPIRATORY: No obvious rhonchi or wheezing. Clear to auscultation. Breath sounds equal bilaterally. GASTROINTESTINAL: Abdomen soft, mild diffuse tenderness to palpation, moderately distended. BS normal. MUSCULOSKELETAL: Extremities without clubbing, cyanosis, or edema. No obvious deformities. NEUROLOGICAL: Awake, alert and oriented x4. No focal neurologic deficits. Moving both upper and lower extremities spontaneously. Medications and IVs Current Medications Medications (Trade) Dose Ordered Sig/Quin Route Start Time Stop Time Status Last Admin Sodium Chloride 1,000 ml @ 100 mls/hr Q10H IV 08/28/17 18:21 08/29/17 01:05 (NS Flush) 2 ml UNSCH PRN IV FLUSH 08/28/17 18:30 (NS Flush) 2 ml BID IV FLUSH 08/28/17 21:00 08/29/17 09:00 (Tylenol) 650 mg Q4H PRN PO 08/28/17 18:30 (Zofran Inj) 4 mg Q6H PRN IVP 08/28/17 18:30 08/29/17 07:51 (Narcan Inj) 0.4 mg UNSCH PRN IV PUSH 08/28/17 18:30 (Milk Of Magnesia Liq) 30 ml Q12H PRN PO 08/28/17 18:30 (Senokot) 17.2 mg Q12H PRN PO 08/28/17 18:30 (Dulcolax Supp) 10 mg DAILY PRN RECTAL 08/28/17 18:30 (Lactulose Liq) 30 ml DAILY PRN PO 08/28/17 18:30 (Xanax) 0.5 mg Q12HR PRN PO 08/28/17 18:30 (Norvasc) 5 mg DAILY PO 08/29/17 09:00 08/29/17 09:13 (Colestipol Pkt) 5 gm Q12HR PO 08/28/17 21:00 08/29/17 09:00 (Lactinex Pkt) 1 gm TID PO 08/29/17 09:00 08/29/17 09:12 (Prinivil) 20 mg DAILY PO 08/29/17 09:00 08/29/17 09:13 Piperacillin Sod/ Tazobactam Sod 50 ml @ 100 mls/hr Q8H IV 08/29/17 02:00 Future Hold 08/29/17 01:05 (Folate) 1 mg DAILY PO 08/29/17 09:00 09/03/17 08:59 08/29/17 09:13 (Vitamin B1) 100 mg DAILY PO 08/28/17 21:00 08/29/17 09:13 (Theragran M Tab) 1 tab DAILY PO 08/29/17 09:00 09/03/17 08:59 08/29/17 09:13 (Romazicon Inj) 0.2 mg Q1M PRN IV PUSH 08/28/17 19:30 (Ativan) 1 mg Q4H PRN PO 08/28/17 19:30 (Ativan Inj) 1 mg Q4H PRN IV PUSH 08/28/17 19:30 (Ativan) 2 mg Q2H PRN PO 08/28/17 19:30 (Ativan Inj) 2 mg Q2H PRN IV PUSH 08/28/17 19:30 (Ativan Inj) 2 mg Q1H PRN IV PUSH 08/28/17 19:30 (Ativan Inj) 2 mg Q15M PRN IV PUSH 08/28/17 19:30 (Haldol Inj) 2 mg Q15M PRN IM 08/28/17 19:30 (Dificid) 200 mg BID PO 08/28/17 21:00 09/07/17 20:59 08/29/17 09:13 (Morphine Inj) 4 mg Q3H PRN IV PUSH 08/29/17 08:00 08/29/17 09:16 (Morphine Inj) 2 mg Q3H PRN IV PUSH 08/29/17 08:00 (VANCOMYCIN for oral use only) 250 mg Q6HR PO 08/29/17 12:00 08/29/17 13:32 A/P Problem List: (1) C. difficile colitis ICD Code: A04.7 - Enterocolitis due to Clostridium difficile Status: Acute (2) Diverticulitis ICD Code: K57.92 - Diverticulitis of intestine, part unspecified, without perforation or abscess without bleeding (3) SHAVONNE (acute kidney injury) ICD Code: N17.9 - Acute kidney failure, unspecified Status: Resolved (4) Alcohol abuse ICD Code: F10.10 - Alcohol abuse, uncomplicated Status: Chronic Assessment and Plan 1. C Diff Colitis: Recurrent. Following w/ Dr. Kennedy as outpatient, on multiple courses of Vanc PO in light of ALLERGY to Flagyl, currently pending fecal transplant, now w/ recurrent abdominal pain and diarrhea. C Diff +. Will start Dificid 200mg bid. Consult Dr. Kennedy for further evaluation, 5/6 continue p.o. vancomycin and Dificid. Discussed the case with Dr. Henderson from infectious disease. Antibiotics per ID. 2. Diverticulitis: H/o Diverticulitis, CT Abd/Pelvis w/ wall thickening consistent w/ diverticulitis, possibly compounded by C Diff colitis, in light of recurrent disease will continue w/ IV Zosyn for Diverticulitis. 5/6 discontinue IV Zosyn. Antibiotics as per ID. 3. SHAVONNE: Creatinine 1.59, previously 1.20 on 08/09/17, IVF for hydration, repeat labs in am /6 repeat labs shows a worsening creatinine of 1.77. Continue normal saline and continue to monitor BUN and creatinine. Avoid nephrotoxins, monitor strict I's and O's. 4. Alcohol Abuse: +mild tremor, CIWA, Seizure Precautions, MVT/Thiamine/ Folate replacement. 5. DVT Prophylaxis: SCD/Teds 6. Social work for d/c planning as needed. Discharge Planning Continue to monitor the medical floor. Toby Garcia MD August 29, 2017 17:07
[2017-08-29] MEDS ORDERED: ALUMINUM/MAGNESIUM/SIMETH 30 ML CUP PO ONE (19:30)
[2017-08-29] MEDS ORDERED: ALUMINUM/MAGNESIUM/SIMETH 30 ML CUP PO PRN (19:30)
[2017-08-29 20:00] VITALS: BP 168/95; PULSE 117; RESP 17; TEMP 98.1; O2SAT 100
[2017-08-29] MEDS: PANTOPRAZOLE SOD 40 MG DELAYED RELEASE TAB PO SCH (20:14)
[2017-08-29] MEDS ORDERED: ERTAPENEM SODIUM 1000 MG VIAL IV SCH (21:00)
[2017-08-29] MEDS: ERTAPENEM 1,000 MG/NS 100 ML IV SCH ×2 (22:44)
[2017-08-30] VITALS: BP 129/85; PULSE 92; RESP 18; TEMP 97.5; O2SAT 98
[2017-08-30] MEDS: VANCOMYCIN 500 MG VIAL (FOR ORAL USE ONLY) PO SCH ×3 (05:39→18:16)
[2017-08-30 08:00] VITALS: BP 151/84; PULSE 89; RESP 18; TEMP 97.8; O2SAT 99
[2017-08-30] MEDS: SODIUM CHLORIDE 0.9% FLUSH 10 ML FLUSH IV FLUSH SCH ×2 (09:00→20:41)
[2017-08-30] MEDS: LACTOBACILLUS ACIDOPHILUS 1 GM PACKET PO SCH ×3 (09:00→18:16)
[2017-08-30] MEDS: COLESTIPOL HCL 5 GM PACKET PO SCH ×2 (09:00→20:40)
[2017-08-30] MEDS: MULTIVITAMINS/MINERALS THERAPEUTIC TAB PO SCH (09:31)
[2017-08-30] MEDS: PANTOPRAZOLE SOD 40 MG DELAYED RELEASE TAB PO SCH (09:31)
[2017-08-30] MEDS: THIAMINE HCL 100 MG TAB PO SCH (09:31)
[2017-08-30] MEDS: FIDAXOMICIN 200 MG TAB PO SCH ×2 (09:31→20:40)
[2017-08-30] MEDS: FOLIC ACID 1 MG TAB PO SCH (09:31)
[2017-08-30] MEDS: LISINOPRIL 20 MG TAB PO SCH (09:31)
[2017-08-30] MEDS: amLODIPine BESYLATE 5 MG TAB PO SCH (09:31)
[2017-08-30] MEDS: SODIUM CHLOR 0.9% 1000 ML INJ 1,000 ML IV SCH ×2 (09:33→15:46)
[2017-08-30] MEDS: MORPHINE SULFATE 4 MG/ML INJ IV PUSH PRN ×5 (09:43→20:42)
--- NOTE | 2017-08-30 09:43 | HHI.IDPN ---
Subjective Subjective Remarks Patient seen and examined on behalf of Dr. Henderson This is a 62-year-old male with past medical history significant for hypertension, diverticulitis, GERD, history of pancreatitis secondary to alcohol binge, chronic renal insufficiency and recurrent Clostridium difficile infection who is well-known to our service from previous hospitalization for treatment of recurrent C. difficile who presents to [facility] with complaints of acute onset of nausea, vomiting, abdominal pain and watery diarrhea 1 day. Patient states that last night he developed acute onset of his symptoms with ongoing diarrhea occurring every half hour and progressive abdominal pain. He denies any fever or chills at home. Patient has a lengthy history of recurrent C. difficile infections starting approximately 3 years ago after he was given IV Levaquin and oral Bactrim. Patient has had multiple hospitalizations for recurrent infection treated with oral vancomycin. Patient has an allergy to Flagyl. Patient's most recent admission was on 08/06/17 at that time his C. difficile study was actually negative and he was treated with po Dificid and Vancomycin discharged home on vancomycin taper. Patient follows with Dr. Kennedy as outpatient and is scheduled to undergo fecal transplant 2017. Patient denies any antibiotic use since his last hospitalization. He denies any known exposure to C. difficile. He and his girlfriend live together and she has contracted C. difficile twice the last time being a year and a half ago. Patient states he is very diligent about using Clorox bleach in the home in attempt to prevent recurrence. Patient reports that he has had for endoscopic procedures in the past 3 years and most recently had a flexible sigmoidoscopy 04/22/[address] Walsh and was found to have diverticulosis, colon polyp and nonbleeding hemorrhoids with pathology revealing slightly thickened basement membrane insufficient for definitive diagnosis of collagenous colitis. In the ED, patient presented with sepsis with white count of 13.7, tachycardia with heart rate of 128 and source of C. difficile infection. Lactic acid 0.9, Anion gap of 16. CT of abdomen pelvis revealed diffuse thickening involving the proximal and mid sigmoid colon suggestive of acute diverticulitis. Patient was started on oral Dificid and IV Zosyn. Infectious disease consultation has been requested for evaluation and management of recurrent C. difficile infection. Patient seen and examined. He is afebrile. His white count is trending down. Patient states he continues to have copious amounts of watery diarrhea occurring every half hour. He complains of nausea and has vomited twice since admission and believes he is having a reaction to Zosyn. He continues to have significant diffuse abdominal pain. He denies any complaints of fever or chills. He denies any chest pain or shortness of breath. He denies any complaints of dysuria. Overnight events noted Notes reviewed patient reports feeling much better stool frequency much improved, only 4 loose BMs last night, none so far this am able to tolerate soft diet no fever no rash no N/V + abdominal pain 11/02 no dysuria afebrile WBC trending down hemoccult neg BCX no growth x 1 day Antibiotics IV Ertapenem PO Vancomycin Current Medications Medications (Trade) Dose Ordered Sig/Quin Route Start Time Stop Time Status Last Admin Sodium Chloride 1,000 ml @ 100 mls/hr Q10H IV 08/28/17 18:21 08/29/17 20:14 (NS Flush) 2 ml UNSCH PRN IV FLUSH 08/28/17 18:30 (NS Flush) 2 ml BID IV FLUSH 08/28/17 21:00 08/29/17 09:00 (Tylenol) 650 mg Q4H PRN PO 08/28/17 18:30 (Zofran Inj) 4 mg Q6H PRN IVP 08/28/17 18:30 08/29/17 07:51 (Narcan Inj) 0.4 mg UNSCH PRN IV PUSH 08/28/17 18:30 (Milk Of Magnesia Liq) 30 ml Q12H PRN PO 08/28/17 18:30 (Senokot) 17.2 mg Q12H PRN PO 08/28/17 18:30 (Dulcolax Supp) 10 mg DAILY PRN RECTAL 08/28/17 18:30 (Lactulose Liq) 30 ml DAILY PRN PO 08/28/17 18:30 (Xanax) 0.5 mg Q12HR PRN PO 08/28/17 18:30 (Norvasc) 5 mg DAILY PO 08/29/17 09:00 08/29/17 09:13 (Colestipol Pkt) 5 gm Q12HR PO 08/28/17 21:00 5/6/18 20:14 (Lactinex Pkt) 1 gm TID PO 08/29/17 09:00 08/29/17 18:00 (Prinivil) 20 mg DAILY PO 08/29/17 09:00 08/29/17 09:13 (Folate) 1 mg DAILY PO 08/29/17 09:00 09/03/17 08:59 08/29/17 09:13 (Vitamin B1) 100 mg DAILY PO 08/28/17 21:00 08/29/17 09:13 (Theragran M Tab) 1 tab DAILY PO 08/29/17 09:00 09/03/17 08:59 08/29/17 09:13 (Romazicon Inj) 0.2 mg Q1M PRN IV PUSH 08/28/17 19:30 (Ativan) 1 mg Q4H PRN PO 08/28/17 19:30 (Ativan Inj) 1 mg Q4H PRN IV PUSH 08/28/17 19:30 (Ativan) 2 mg Q2H PRN PO 08/28/17 19:30 (Ativan Inj) 2 mg Q2H PRN IV PUSH 08/28/17 19:30 (Ativan Inj) 2 mg Q1H PRN IV PUSH 08/28/17 19:30 (Ativan Inj) 2 mg Q15M PRN IV PUSH 08/28/17 19:30 (Haldol Inj) 2 mg Q15M PRN IM 08/28/17 19:30 (Dificid) 200 mg BID PO 08/28/17 21:00 09/07/17 20:59 08/29/17 20:14 (Morphine Inj) 4 mg Q3H PRN IV PUSH 08/29/17 08:00 08/29/17 22:45 (Morphine Inj) 2 mg Q3H PRN IV PUSH 08/29/17 08:00 08/29/17 18:00 (VANCOMYCIN for oral use only) 250 mg Q6HR PO 08/29/17 12:00 08/30/17 05:39 (Protonix) 40 mg DAILY PO 08/29/17 19:30 08/29/17 20:14 (Mag-Al Plus Susp Liq) 30 ml Q6H PRN PO 08/29/17 19:30 Ertapenem 1000 mg/ Sodium Chloride 100 ml @ 200 mls/hr Q24H IV 08/29/17 22:00 08/29/17 22:44 Lines PIV with no e/o infection Past Medical History Recurrent C difficile infection Hypertension History of diverticulitis Chronic renal insufficiency GERD Arthritis History of pancreatitis after binge drinking following his divorce History of Herpes zoster Hx of possible small sigmoid abscess with CT abd/pelvis 07/14/17 showing 2.3 x 1.5 cm rim-enhancing fluid collection the distal sigmoid colonic wall, possibly a small abscess of other significant inflammatory change is identified in the surrounding soft tissues. Hx of Klebsiella Pneumoniae bacteremia (Angela Berger) Allergies: Coded Allergies: codeine (Verified Allergy, Severe, RASH, 08/28/17) ibuprofen (Verified Allergy, Severe, Swelling, 08/28/17) of eyes levofloxacin (Verified Allergy, Severe, ACHILLES TENDON PROBLEM, 08/28/17) metronidazole (Verified Allergy, Severe, Nausea/Vomiting, 08/28/17) Objective . Vital Signs Date Time Temp Pulse Resp B/P (MAP) Pulse Ox O2 Delivery O2 Flow Rate FiO2 08/30/17 08:00 97.8 89 18 151/84 (106) 99 08/30/17 00:00 97.5 92 18 129/85 (100) 98 08/29/17 20:00 98.1 117 17 168/95 (119) 100 08/29/17 16:00 97.9 91 15 139/83 (101) 100 08/29/17 12:00 97.7 96 16 147/85 (105) 100 . Laboratory Tests Test 08/28/17 14:20 08/29/17 06:55 White Blood Count 13.7 TH/MM3 11.9 TH/MM3 Red Blood Count 4.55 MIL/MM3 4.13 MIL/MM3 Hemoglobin 12.0 GM/DL 10.9 GM/DL Hematocrit 37.4 % 34.6 % Mean Corpuscular Volume 82.2 FL 83.7 FL Mean Corpuscular Hemoglobin 26.4 PG 26.3 PG Mean Corpuscular Hemoglobin Concent 32.1 % 31.4 % Red Cell Distribution Width 17.9 % 17.7 % Platelet Count 385 TH/MM3 322 TH/MM3 Mean Platelet Volume 8.4 FL 8.4 FL Neutrophils (%) (Auto) 78.1 % 73.5 % Lymphocytes (%) (Auto) 13.2 % 15.5 % Monocytes (%) (Auto) 7.3 % 9.9 % Eosinophils (%) (Auto) 0.2 % 0.5 % Basophils (%) (Auto) 1.2 % 0.6 % Neutrophils # (Auto) 10.7 TH/MM3 8.8 TH/MM3 Lymphocytes # (Auto) 1.8 TH/MM3 1.8 TH/MM3 Monocytes # (Auto) 1.0 TH/MM3 1.2 TH/MM3 Eosinophils # (Auto) 0.0 TH/MM3 0.1 TH/MM3 Basophils # (Auto) 0.2 TH/MM3 0.1 TH/MM3 CBC Comment DIFF FINAL DIFF FINAL Differential Comment Laboratory Tests Test 08/28/17 14:20 08/28/17 17:56 08/29/17 06:55 Blood Urea Nitrogen 27 MG/DL 31 MG/DL Creatinine 1.59 MG/DL 1.77 MG/DL Random Glucose 81 MG/DL 90 MG/DL Total Protein 8.4 GM/DL 7.6 GM/DL Albumin 4.4 GM/DL 3.8 GM/DL Calcium Level 9.5 MG/DL 8.6 MG/DL Alkaline Phosphatase 78 U/L 68 U/L Aspartate Amino Transf (AST/SGOT) 22 U/L 19 U/L Alanine Aminotransferase (ALT/SGPT) 19 U/L 16 U/L Total Bilirubin 1.0 MG/DL 1.0 MG/DL Sodium Level 136 MEQ/L 138 MEQ/L Potassium Level 4.9 MEQ/L 4.4 MEQ/L Chloride Level 104 MEQ/L 107 MEQ/L Carbon Dioxide Level 15.8 MEQ/L 19.3 MEQ/L Anion Gap 16 MEQ/L 12 MEQ/L Estimat Glomerular Filtration Rate 44 ML/MIN 39 ML/MIN Lipase 262 U/L Lactic Acid Level 0.9 mmol/L Microbiology Date/Time Source Procedure Growth Status 08/28/17 18:56 Blood Peripheral Aerobic Blood Culture - Preliminary NO GROWTH IN 1 DAY Resulted 08/28/17 18:56 Blood Peripheral Anaerobic Blood Culture - Preliminary NO GROWTH IN 1 DAY Resulted 08/28/17 18:50 Blood Peripheral Aerobic Blood Culture - Preliminary NO GROWTH IN 1 DAY Resulted 08/28/17 18:50 Blood Peripheral Anaerobic Blood Culture - Preliminary NO GROWTH IN 1 DAY Resulted 08/29/17 15:00 Stool Stool Cyclospora Exam Pending Resulted 08/29/17 15:00 Stool Stool Cryptosporidium Exam Pending Resulted 08/29/17 15:00 Stool Stool Stool Pus (ALYSSIA) - Final Resulted 08/29/17 15:00 Stool Stool Giardia Antigen (ALYSSIA) Pending Resulted 08/29/17 15:00 Stool Stool Stool Occult Blood (ALYSSIA) - Final HEMOCCULT NEGATIVE Resulted 08/29/17 15:00 Stool Stool Pending Received 08/29/17 15:00 Stool Stool Rotavirus Antigen - Final NEGATIVE - ROTAVIRUS ANTIGEN IS ABSEN... Complete Imaging Last Impressions Abdomen/Pelvis CT 08/28/17 0000 Signed Impressions: Service Date/Time: Monday, August 28, 2017 17:24 - CONCLUSION: 1. Diffuse thickening involving the wall of the proximal and mid sigmoid colon consistent with probable acute diverticulitis. Clinical correlation is recommended. 2. Mild chronic compression deformity involving T11. 3. Stable bilateral renal cysts. 4. Degenerative changes and scoliosis of lumbar spine. Nilesh Simms MD Physical Exam GENERAL: This is a well-nourished, well-developed male patient, in no apparent distress. Awake and alert. Lying in bed. Appears comfortable. SKIN: No rashes, ecchymoses or lesions. Cool and dry. HEAD: Atraumatic. Normocephalic. No temporal or scalp tenderness. EYES: Pupils equal round and reactive. Extraocular motions intact. No scleral icterus. No injection or drainage. ENT: Nose without bleeding or purulent drainage. Airway patent. No oral lesions. NECK: Trachea midline. No lymphadenopathy. Supple, nontender, no meningeal signs. CARDIOVASCULAR: Regular rate and rhythm without murmurs, gallops, or rubs. RESPIRATORY: Clear to auscultation. Breath sounds equal bilaterally. No wheezes , rales, or rhonchi. GASTROINTESTINAL: Abdomen soft, nondistended. + diffusely tender to palpation in all 4 quadrants. No hepato-splenomegaly, or palpable masses. No guarding. MUSCULOSKELETAL: Extremities without clubbing, cyanosis, or edema. No calf tenderness. NEUROLOGICAL: Awake and alert. Cranial nerves II through XII grossly intact. Motor and sensory grossly within normal limits. No focal neurologic findings appreciated. Normal speech. PSYCHIATRIC: Appropriate mood and affect. Normal judgment and insight. PIV with no e/o infection (Angela Berger) Assessment & Plan Remarks ASSESSMENT: Sepsis with leukocytosis, tachycardia and suspected source of C. difficile positive infection and diverticulitis -blood cx with no growth to date C. difficile diarrhea Acute diverticulitis -CT abd/pelvis reveals diffuse thickening involving the proximal and mid sigmoid colon suggestive of acute diverticulitis -GI following Leukocytosis secondary to C. difficile infection, white count trending down Acute on chronic renal insufficiency, suspect secondary to dehydration/volume depletion, worsening -creatinine increased from 1.59 to 1.77 History of recurrent C. difficile -Patient follows with Dr. Kennedy as outpatient and is scheduled to undergo fecal transplant in approximately 6 weeks Hx of diverticulitis ?sigmoid abscess per CT abd/pelvis 07/14/17 Hx of Klebsiella Pneumoniae bacteremia 2016 HTN Anemia, chronic -hgb appears stable -hemoccult negative Hx of alcohol abuse and pancreatitis Marijuana use Zosyn allergy with severe nausea and vomiting Flagyl allergy Unable to tolerate Levaquin secondary to achilles tendon rupture RECOMMENDATIONS: Contino on IV Ertapenem Continue on po Dificid Continue on oral Vancomycin 250mg q6h, plan to deescalate dose follow up on blood culture results IV hydration monitor kidney function, avoid nephrotoxic agents Monitor stools Monitor clinically (Angela Berger) Remarks The exam, history, and the medical decision-making described in the above note were completed with the assistance of the mid-level provider. I reviewed and agree with the findings presented. I attest that I had a [id number] encounter with the patient on the same day, and personally performed and documented my assessment and findings in the medical record. complains of loose BMs. Abd pain better No N/V with ertapenem tolerated Exam Diffuse abd tenderness CTA BL Recs Continue Ertapenem IV Continue Oral vanco Will need IV abx on discharge Dw Dr.Ketul Kennedy: Clinical picture cw combined Diverticulitis and Cdiff. Fecal transplant on hold for now. (Matilda Henderson MD) Angela Berger August 30, 2017 09:43 Matilda Henderson MD August 30, 2017 17:21
[2017-08-30 10:22] VITALS: O2SAT 99
[2017-08-30 12:00] VITALS: BP 128/80; PULSE 76; RESP 18; TEMP 97.7; O2SAT 97
--- NOTE | 2017-08-30 16:46 | HHI.GIFU ---
GI Follow-up Note Consult Follow-up Subjective: Patient laying in bed comfortably, no new complaints except, diarrhea slowing down, no having soft loose stools no fever or chills. Objective: PHYSICAL EXAMINATION: Vitals signs stable No fever HEENT: Pupils round and reactive to light; normocephalic; atraumatic; no jaundice. Throat is clear. NECK: Neck is supple, no JVD, no lymphadenopathy. CHEST: Chest is clear to auscultation and percussion. CARDIAC: Regular rate and rhythm with no murmur gallop or rubs. ABDOMEN: Soft, nondistended, nontender; no hepatosplenomegaly; bowel sounds are present in all four quadrants. EXTREMITIES: No clubbing, cyanosis, or edema. SKIN: Normal; no rash; no jaundice. DIRECTOR OF CATERING: No focal deficits; alert and oriented times three. Available Data (labs, X- Rays, Procedures) : reviewed ASSESSMENT/PLAN: 1. recurrent Cdiff diarrhea 2. Acute diverticulitis PLAN: 1. Diet as tolerated 2. ABx per ID recs 3. Out pt follow up with me 4. In the process of donor screening, will plan for c-scope with FMT in 4-6 wks. once diverticulitis is resolved. 5. call for questions. It was a pleasure seeing Rahul Adams. Thank you for this consult. Entered by: Miguel Adamson MD August 30, 2017 16:46
[2017-08-30 18:25] VITALS: O2SAT 97
--- NOTE | 2017-08-30 18:29 | HHI.PR ---
Subjective Remarks Patient complains of loose stools, diarrhea improving. Denies fevers or chills. Denies nausea vomiting. Abdominal pain still present in the lower quadrants however much improved. Objective Vitals Vital Signs Date Time Temp Pulse Resp B/P (MAP) Pulse Ox O2 Delivery O2 Flow Rate FiO2 08/30/17 18:25 97 21 08/30/17 15:51 20 08/30/17 12:00 97.7 76 18 128/80 (96) 97 08/30/17 10:22 99 21 08/30/17 08:00 97.8 89 18 151/84 (106) 99 08/30/17 00:00 97.5 92 18 129/85 (100) 98 08/29/17 20:00 98.1 117 17 168/95 (119) 100 I/O 08/29/17 08/29/17 08/29/17 08/30/17 08/30/17 08/30/17 07:00 15:00 23:00 07:00 15:00 23:00 Intake Total 1050 ml 1900 ml 100 ml Output Total 900 ml Balance 1050 ml 1000 ml 100 ml Intake Oral 900 ml IV Total 1050 ml 1000 ml 100 ml Output Urine Total 900 ml # Bowel Movements 8 Result Diagram: 08/29/17 0655 08/29/17 0655 Imaging Last Impressions Abdomen/Pelvis CT 08/28/17 0000 Signed Impressions: Service Date/Time: Monday, August 28, 2017 17:24 - CONCLUSION: 1. Diffuse thickening involving the wall of the proximal and mid sigmoid colon consistent with probable acute diverticulitis. Clinical correlation is recommended. 2. Mild chronic compression deformity involving T11. 3. Stable bilateral renal cysts. 4. Degenerative changes and scoliosis of lumbar spine. Nilesh Simms MD Objective Remarks GENERAL: Pleasant middle-aged white male in no acute distress. Mildly tremulous. HEENT: PERRLA, EOMI. No scleral icterus or conjunctival pallor. No lid lag or facial droop. CARDIOVASCULAR: Regular rate and rhythm. No obvious murmurs to auscultation. No chest tenderness to palpation. RESPIRATORY: No obvious rhonchi or wheezing. Clear to auscultation. Breath sounds equal bilaterally. GASTROINTESTINAL: Abdomen soft, mild diffuse tenderness to palpation, moderately distended. BS normal. MUSCULOSKELETAL: Extremities without clubbing, cyanosis, or edema. No obvious deformities. NEUROLOGICAL: Awake, alert and oriented x4. No focal neurologic deficits. Moving both upper and lower extremities spontaneously. A/P Problem List: (1) C. difficile colitis ICD Code: A04.7 - Enterocolitis due to Clostridium difficile Status: Acute (2) Diverticulitis ICD Code: K57.92 - Diverticulitis of intestine, part unspecified, without perforation or abscess without bleeding (3) SHAVONNE (acute kidney injury) ICD Code: N17.9 - Acute kidney failure, unspecified Status: Resolved (4) Alcohol abuse ICD Code: F10.10 - Alcohol abuse, uncomplicated Status: Chronic Assessment and Plan 1. C Diff Colitis: Recurrent. Following w/ Dr. Kennedy as outpatient, on multiple courses of Vanc PO in light of ALLERGY to Flagyl, currently pending fecal transplant, now w/ recurrent abdominal pain and diarrhea. C Diff +. Will start Dificid 200mg bid. Consult Dr. Kennedy for further evaluation, 08/29 continue p.o. vancomycin and Dificid. Discussed the case with Dr. Henderson from infectious disease. Antibiotics per ID. 08/30 diarrhea is improving. Continue IV ertapenem, p.o. Dificid and oral vancomycin. Antibiotics as per ID. Appreciate GI consultation recommendations. Diet as tolerated. Outpatient follow-up with Dr. Kennedy. The patient is in the process of donor screening for stool transplant which will be done once diverticulitis is resolved. 2. Diverticulitis: H/o Diverticulitis, CT Abd/Pelvis w/ wall thickening consistent w/ diverticulitis, possibly compounded by C Diff colitis, in light of recurrent disease will continue w/ IV Zosyn for Diverticulitis. 08/29 discontinue IV Zosyn. Antibiotics as per ID. 08/30 patient started on ertapenem as per ID recommendations. 3. SHAVONNE: Creatinine 1.59, previously 1.20 on 08/09/17, IVF for hydration, repeat labs in am 08/29 repeat labs shows a worsening creatinine of 1.77. Continue normal saline and continue to monitor BUN and creatinine. Avoid nephrotoxins, monitor strict I's and O's. 08/30 labs pending. Continue IV fluids. 4. Alcohol Abuse: +mild tremor, CIWA, Seizure Precautions, MVT/Thiamine/ Folate replacement. 5/7 tremors much improved. Continue CIWA protocol. 5. DVT Prophylaxis: SCD/Teds 6. Social work for d/c planning as needed. Discharge Planning Continue to monitor the medical floor. Toby Garcia MD August 30, 2017 18:29
[2017-08-30 20:00] VITALS: BP 140/83; PULSE 79; RESP 18; TEMP 97.8; O2SAT 99
[2017-08-30 21:25] LABS: AUTOMATED NEUTROPHIL # 4.7 TH/MM3 (1.8-7.7); BASOPHIL # 0.1 TH/MM3 (0-0.2); BASOPHIL % 0.8 % (0.0-2.0); EOSINOPHIL # 0.2 TH/MM3 (0-0.4); EOSINOPHIL % 2.2 % (0.0-4.0); HEMATOCRIT 27.5 % (39.0-51.0); LYMPH % 26.5 % (9.0-44.0); LYMPHOCYTE # 2.1 TH/MM3 (1.0-4.8); MEAN CELL VOLUME 82.4 FL (80.0-100.0); MEAN CORPUSCULAR HEMOGLOBIN 26.9 PG (27.0-34.0); MEAN CORPUSCULAR HGB CONC 32.6 % (32.0-36.0); MEAN PLATELET VOLUME 8.1 FL (7.0-11.0); MONOCYTE # 0.9 TH/MM3 (0-0.9); NEUT % 59.5 % (16.0-70.0); PLATELET COUNT 228 TH/MM3 (150-450); RED BLOOD COUNT 3.34 MIL/MM3 (4.50-5.90); WHITE BLOOD COUNT 7.8 TH/MM3 (4.0-11.0)
[2017-08-30 21:46] LABS: ALBUMIN 3.3 GM/DL (3.4-5.0); ALKALINE PHOSPHATASE 51 U/L (45-117); ALT (GPT) 15 U/L (12-78); AST (GOT) 15 U/L (15-37); BICARBONATE 16.3 MEQ/L (21.0-32.0); BLOOD UREA NITROGEN 12 MG/DL (7-18); CALCIUM 8.3 MG/DL (8.5-10.1); CHLORIDE 110 MEQ/L (98-107); CREATININE 1.16 MG/DL (0.60-1.30); GLOMERULAR FILTRATION RATE 63 ML/MIN (>89); GLUCOSE,RANDOM 96 MG/DL (74-106); SODIUM (NA) 137 MEQ/L (136-145); TOTAL BILIRUBIN ADULT 0.4 MG/DL (0.2-1.0); TOTAL PROTEIN 6.3 GM/DL (6.4-8.2)
[2017-08-30] MEDS: ERTAPENEM 1,000 MG/NS 100 ML IV SCH ×2 (21:50)
[2017-08-31] VITALS: BP 150/84; PULSE 83; RESP 17; TEMP 97.5; O2SAT 98
[2017-08-31] MEDS: VANCOMYCIN 500 MG VIAL (FOR ORAL USE ONLY) PO SCH ×4 (00:10→18:50)
[2017-08-31] MEDS: MORPHINE SULFATE 4 MG/ML INJ IV PUSH PRN ×5 (00:10→21:54)
[2017-08-31] MEDS: SODIUM CHLOR 0.9% 1000 ML INJ 1,000 ML IV SCH ×2 (01:54→18:56)
[2017-08-31 08:00] VITALS: BP 140/83; PULSE 75; RESP 19; TEMP 97.8; O2SAT 96
[2017-08-31] MEDS: SODIUM CHLORIDE 0.9% FLUSH 10 ML FLUSH IV FLUSH SCH ×2 (09:00→19:46)
[2017-08-31] MEDS: LACTOBACILLUS ACIDOPHILUS 1 GM PACKET PO SCH ×3 (09:00→18:00)
[2017-08-31] MEDS: COLESTIPOL HCL 5 GM PACKET PO SCH ×2 (09:00→19:45)
[2017-08-31] MEDS: THIAMINE HCL 100 MG TAB PO SCH (09:00)
[2017-08-31 09:38] LABS: AUTOMATED NEUTROPHIL # 3.7 TH/MM3 (1.8-7.7); BASOPHIL % 0.7 % (0.0-2.0); EOSINOPHIL # 0.2 TH/MM3 (0-0.4); EOSINOPHIL % 2.6 % (0.0-4.0); HEMATOCRIT 28.4 % (39.0-51.0); HEMOGLOBIN 9.3 GM/DL (13.0-17.0); LYMPH % 26.4 % (9.0-44.0); LYMPHOCYTE # 1.6 TH/MM3 (1.0-4.8); MEAN CELL VOLUME 83.5 FL (80.0-100.0); MEAN CORPUSCULAR HEMOGLOBIN 27.2 PG (27.0-34.0); MEAN CORPUSCULAR HGB CONC 32.6 % (32.0-36.0); MEAN PLATELET VOLUME 8.5 FL (7.0-11.0); MONO % 10.5 % (0.0-8.0); MONOCYTE # 0.7 TH/MM3 (0-0.9); NEUT % 59.8 % (16.0-70.0); PLATELET COUNT 227 TH/MM3 (150-450); RED CELL DISTRIBUTION WIDTH 17.8 % (11.6-17.2); WHITE BLOOD COUNT 6.2 TH/MM3 (4.0-11.0)
[2017-08-31 10:01] LABS: ALBUMIN 3.1 GM/DL (3.4-5.0); AST (GOT) 16 U/L (15-37); BICARBONATE 19.5 MEQ/L (21.0-32.0); BLOOD UREA NITROGEN 10 MG/DL (7-18); CALCIUM 8.4 MG/DL (8.5-10.1); CHLORIDE 109 MEQ/L (98-107); CREATININE 1.04 MG/DL (0.60-1.30); GLOMERULAR FILTRATION RATE 72 ML/MIN (>89); GLUCOSE,RANDOM 90 MG/DL (74-106); MAGNESIUM 0.9 MG/DL (1.5-2.5); SODIUM (NA) 138 MEQ/L (136-145)
[2017-08-31 10:03] LABS: ALT (GPT) 13 U/L (12-78); PHOSPHORUS 3.3 MG/DL (2.5-4.9)
[2017-08-31 10:05] LABS: ALKALINE PHOSPHATASE 47 U/L (45-117); TOTAL BILIRUBIN ADULT 0.3 MG/DL (0.2-1.0); TOTAL PROTEIN 6.1 GM/DL (6.4-8.2)
[2017-08-31] MEDS: FIDAXOMICIN 200 MG TAB PO SCH ×2 (11:41→19:45)
[2017-08-31] MEDS: MULTIVITAMINS/MINERALS THERAPEUTIC TAB PO SCH (11:42)
[2017-08-31] MEDS: LISINOPRIL 20 MG TAB PO SCH (11:42)
[2017-08-31] MEDS: PANTOPRAZOLE SOD 40 MG DELAYED RELEASE TAB PO SCH (11:42)
[2017-08-31] MEDS: FOLIC ACID 1 MG TAB PO SCH (11:42)
[2017-08-31] MEDS: amLODIPine BESYLATE 5 MG TAB PO SCH (11:44)
[2017-08-31 12:00] VITALS: BP 142/85; PULSE 77; RESP 18; TEMP 97.9; O2SAT 98
[2017-08-31] MEDS: ONDANSETRON HCL 4 MG/2 ML VIAL IVP PRN (12:01)
--- NOTE | 2017-08-31 14:36 | HHI.IDPN ---
Subjective Subjective Remarks is a 62-year-old male with past medical history significant for hypertension, diverticulitis, GERD, history of pancreatitis secondary to alcohol binge, chronic renal insufficiency and recurrent Clostridium difficile infection who is well-known to our service from previous hospitalization for treatment of recurrent C. difficile who presents to [facility] with complaints of acute onset of nausea, vomiting, abdominal pain and watery diarrhea 1 day. Patient states that last night he developed acute onset of his symptoms with ongoing diarrhea occurring every half hour and progressive abdominal pain. He denies any fever or chills at home. Patient has a lengthy history of recurrent C. difficile infections starting approximately 3 years ago after he was given IV Levaquin and oral Bactrim. Patient has had multiple hospitalizations for recurrent infection treated with oral vancomycin. Patient has an allergy to Flagyl. Patient's most recent admission was on 08/06/17 at that time his C. difficile study was actually negative and he was treated with po Dificid and Vancomycin discharged home on vancomycin taper. Patient follows with Dr. Kennedy as outpatient and is scheduled to undergo fecal transplant 2017. Patient denies any antibiotic use since his last hospitalization. He denies any known exposure to C. difficile. He and his girlfriend live together and she has contracted C. difficile twice the last time being a year and a half ago. Patient states he is very diligent about using Clorox bleach in the home in attempt to prevent recurrence. Patient reports that he has had for endoscopic procedures in the past 3 years and most recently had a flexible sigmoidoscopy 04/22/[address] Walsh and was found to have diverticulosis, colon polyp and nonbleeding hemorrhoids with pathology revealing slightly thickened basement membrane insufficient for definitive diagnosis of collagenous colitis. In the ED, patient presented with sepsis with white count of 13.7, tachycardia with heart rate of 128 and source of C. difficile infection. Lactic acid 0.9, Anion gap of 16. CT of abdomen pelvis revealed diffuse thickening involving the proximal and mid sigmoid colon suggestive of acute diverticulitis. Patient was started on oral Dificid and IV Zosyn. Infectious disease consultation has been requested for evaluation and management of recurrent C. difficile infection. Patient seen and examined. He is afebrile. His white count is trending down. Patient states he continues to have copious amounts of watery diarrhea occurring every half hour. He complains of nausea and has vomited twice since admission and believes he is having a reaction to Zosyn. He continues to have significant diffuse abdominal pain. He denies any complaints of fever or chills. He denies any chest pain or shortness of breath. He denies any complaints of dysuria. Overnight events noted Notes reviewed reports diarrhea 3 episodes and his pump malfunctioning and beeping all night. Did not sleep well. No rash Some abd discomfort wants to sleep Not ready for DC home feels weak. Antibiotics IV Ertapenem PO Vancomycin Lines PIV with no e/o infection Past Medical History Recurrent C difficile infection Hypertension History of diverticulitis Chronic renal insufficiency GERD Arthritis History of pancreatitis after binge drinking following his divorce History of Herpes zoster Hx of possible small sigmoid abscess with CT abd/pelvis 07/14/17 showing 2.3 x 1.5 cm rim-enhancing fluid collection the distal sigmoid colonic wall, possibly a small abscess of other significant inflammatory change is identified in the surrounding soft tissues. Hx of Klebsiella Pneumoniae bacteremia Allergies: Coded Allergies: codeine (Verified Allergy, Severe, RASH, 08/28/17) ibuprofen (Verified Allergy, Severe, Swelling, 08/28/17) of eyes levofloxacin (Verified Allergy, Severe, ACHILLES TENDON PROBLEM, 08/28/17) metronidazole (Verified Allergy, Severe, Nausea/Vomiting, 08/28/17) Objective . Vital Signs Date Time Temp Pulse Resp B/P (MAP) Pulse Ox O2 Delivery O2 Flow Rate FiO2 08/31/17 12:00 97.9 77 18 142/85 (104) 98 08/31/17 08:00 97.8 75 19 140/83 (102) 96 08/31/17 00:00 97.5 83 17 150/84 (106) 98 08/30/17 20:00 97.8 79 18 140/83 (102) 99 08/30/17 18:25 97 21 08/30/17 15:51 20 . Laboratory Tests Test 08/30/17 20:43 08/31/17 08:17 White Blood Count 7.8 TH/MM3 6.2 TH/MM3 Red Blood Count 3.34 MIL/MM3 3.40 MIL/MM3 Hemoglobin 9.0 GM/DL 9.3 GM/DL Hematocrit 27.5 % 28.4 % Mean Corpuscular Volume 82.4 FL 83.5 FL Mean Corpuscular Hemoglobin 26.9 PG 27.2 PG Mean Corpuscular Hemoglobin Concent 32.6 % 32.6 % Red Cell Distribution Width 18.0 % 17.8 % Platelet Count 228 TH/MM3 227 TH/MM3 Mean Platelet Volume 8.1 FL 8.5 FL Neutrophils (%) (Auto) 59.5 % 59.8 % Lymphocytes (%) (Auto) 26.5 % 26.4 % Monocytes (%) (Auto) 11.0 % 10.5 % Eosinophils (%) (Auto) 2.2 % 2.6 % Basophils (%) (Auto) 0.8 % 0.7 % Neutrophils # (Auto) 4.7 TH/MM3 3.7 TH/MM3 Lymphocytes # (Auto) 2.1 TH/MM3 1.6 TH/MM3 Monocytes # (Auto) 0.9 TH/MM3 0.7 TH/MM3 Eosinophils # (Auto) 0.2 TH/MM3 0.2 TH/MM3 Basophils # (Auto) 0.1 TH/MM3 0.0 TH/MM3 CBC Comment DIFF FINAL DIFF FINAL Differential Comment Laboratory Tests Test 08/30/17 20:43 08/31/17 08:17 Blood Urea Nitrogen 12 MG/DL 10 MG/DL Creatinine 1.16 MG/DL 1.04 MG/DL Random Glucose 96 MG/DL 90 MG/DL Total Protein 6.3 GM/DL 6.1 GM/DL Albumin 3.3 GM/DL 3.1 GM/DL Calcium Level 8.3 MG/DL 8.4 MG/DL Alkaline Phosphatase 51 U/L 47 U/L Aspartate Amino Transf (AST/SGOT) 15 U/L 16 U/L Alanine Aminotransferase (ALT/SGPT) 15 U/L 13 U/L Total Bilirubin 0.4 MG/DL 0.3 MG/DL Sodium Level 137 MEQ/L 138 MEQ/L Potassium Level 4.2 MEQ/L 4.2 MEQ/L Chloride Level 110 MEQ/L 109 MEQ/L Carbon Dioxide Level 16.3 MEQ/L 19.5 MEQ/L Anion Gap 11 MEQ/L 10 MEQ/L Estimat Glomerular Filtration Rate 63 ML/MIN 72 ML/MIN Phosphorus Level 3.3 MG/DL Magnesium Level 0.9 MG/DL Microbiology Date/Time Source Procedure Growth Status 08/28/17 18:56 Blood Peripheral Aerobic Blood Culture - Preliminary NO GROWTH IN 3 DAYS Resulted 08/28/17 18:56 Blood Peripheral Anaerobic Blood Culture - Preliminary NO GROWTH IN 3 DAYS Resulted 08/28/17 18:50 Blood Peripheral Aerobic Blood Culture - Preliminary NO GROWTH IN 3 DAYS Resulted 08/28/17 18:50 Blood Peripheral Anaerobic Blood Culture - Preliminary NO GROWTH IN 3 DAYS Resulted 08/29/17 15:00 Stool Stool Cyclospora Exam - Final NO CYCLOSPORA SEEN Complete 08/29/17 15:00 Stool Stool Cryptosporidium Exam - Final NEGATIVE - NO CRYPTOSPORIDIUM ANTIGEN... Complete 08/29/17 15:00 Stool Stool Stool Pus (ALYSSIA) - Final Complete 08/29/17 15:00 Stool Stool Giardia Antigen (ALYSSIA) - Final NEGATIVE - NO GIARDIA ANTIGEN DETECTE... Complete 08/29/17 15:00 Stool Stool Stool Occult Blood (ALYSSIA) - Final HEMOCCULT NEGATIVE Complete 08/29/17 15:00 Stool Stool - Final NO ENTERIC PATHOGENS DETECTED BY PCR... Complete 08/29/17 15:00 Stool Stool Rotavirus Antigen - Final NEGATIVE - ROTAVIRUS ANTIGEN IS ABSEN... Complete Imaging Last Impressions Abdomen/Pelvis CT 08/28/17 0000 Signed Impressions: Service Date/Time: Monday, August 28, 2017 17:24 - CONCLUSION: 1. Diffuse thickening involving the wall of the proximal and mid sigmoid colon consistent with probable acute diverticulitis. Clinical correlation is recommended. 2. Mild chronic compression deformity involving T11. 3. Stable bilateral renal cysts. 4. Degenerative changes and scoliosis of lumbar spine. Nilesh Simms MD Physical Exam GENERAL: This is a well-nourished, well-developed male patient, in no apparent distress. Awake and alert. Lying in bed. Appears comfortable. SKIN: No rashes, ecchymoses or lesions. Cool and dry. HEAD: Atraumatic. Normocephalic. No temporal or scalp tenderness. EYES: Pupils equal round and reactive. Extraocular motions intact. No scleral icterus. No injection or drainage. ENT: Nose without bleeding or purulent drainage. Airway patent. No oral lesions. NECK: Trachea midline. No lymphadenopathy. Supple, nontender, no meningeal signs. CARDIOVASCULAR: Regular rate and rhythm without murmurs, gallops, or rubs. RESPIRATORY: Clear to auscultation. Breath sounds equal bilaterally. No wheezes , rales, or rhonchi. GASTROINTESTINAL: Abdomen soft, nondistended. + diffusely tender to palpation in all 4 quadrants. No hepato-splenomegaly, or palpable masses. No guarding. MUSCULOSKELETAL: Extremities without clubbing, cyanosis, or edema. No calf tenderness. NEUROLOGICAL: Awake and alert. Cranial nerves II through XII grossly intact. Motor and sensory grossly within normal limits. No focal neurologic findings appreciated. Normal speech. PSYCHIATRIC: Appropriate mood and affect. Normal judgment and insight. PIV with no e/o infection Assessment & Plan Remarks Sepsis with leukocytosis, tachycardia and suspected source of C. difficile positive infection C. difficile diarrhea/colitis ?acute diverticulitis -CT abd/pelvis reveals diffuse thickening involving the proximal and mid sigmoid colon suggestive of acute diverticulitis Leukocytosis secondary to C. difficile infection, white count trending down Acute on chronic renal insufficiency, suspect secondary to dehydration/volume depletion, worsening History of recurrent C. difficile -Patient follows with Dr. Kennedy as outpatient and is scheduled to undergo fecal transplant 09/14/17 Hx of diverticulitis ?sigmoid abscess per CT abd/pelvis 07/14/17 Hx of Klebsiella Pneumoniae bacteremia 2017 HTN Hx of alcohol abuse and pancreatitis Marijuana use Recs Continue Ertapenem IV Continue Oral vanco Will need IV abx on discharge but not ready Dw Dr.Ketul Kennedy: Clinical picture cw combined Diverticulitis and Cdiff. Fecal transplant on hold for now. to cover for me 09/01 - 09/03, and then weekend ID Matilda Hickey MD August 31, 2017 14:36
[2017-08-31 16:00] VITALS: BP 153/95; PULSE 93; RESP 19; TEMP 97.9; O2SAT 100
--- NOTE | 2017-08-31 17:05 | HHI.PR ---
Subjective Remarks Patient complains of neck pain especially on the right side of the neck with there is a paraspinal neck muscle that is tender. Patient states he does not have any more diarrhea. Patient is afebrile. Denies any rash, but complains of some abdominal discomfort. Objective Vitals Vital Signs Date Time Temp Pulse Resp B/P (MAP) Pulse Ox O2 Delivery O2 Flow Rate FiO2 08/31/17 12:00 97.9 77 18 142/85 (104) 98 08/31/17 08:00 97.8 75 19 140/83 (102) 96 08/31/17 00:00 97.5 83 17 150/84 (106) 98 08/30/17 20:00 97.8 79 18 140/83 (102) 99 08/30/17 18:25 97 21 I/O 08/30/17 08/30/17 08/30/17 08/31/17 08/31/17 08/31/17 07:00 15:00 23:00 07:00 15:00 23:00 Intake Total 100 ml 880 ml 1270 ml Balance 100 ml 880 ml 1270 ml Intake Oral 780 ml 270 ml IV Total 100 ml 100 ml 1000 ml # Voids 5 3 # Bowel Movements 0 Result Diagram: 08/31/17 0817 08/31/17 0817 Imaging Last Impressions Abdomen/Pelvis CT 08/28/17 0000 Signed Impressions: Service Date/Time: Monday, August 28, 2017 17:24 - CONCLUSION: 1. Diffuse thickening involving the wall of the proximal and mid sigmoid colon consistent with probable acute diverticulitis. Clinical correlation is recommended. 2. Mild chronic compression deformity involving T11. 3. Stable bilateral renal cysts. 4. Degenerative changes and scoliosis of lumbar spine. Nilesh Simms MD Objective Remarks GENERAL: Pleasant middle-aged white male in no acute distress. Mildly tremulous. HEENT: PERRLA, EOMI. No scleral icterus or conjunctival pallor. No lid lag or facial droop. CARDIOVASCULAR: Regular rate and rhythm. No obvious murmurs to auscultation. No chest tenderness to palpation. RESPIRATORY: No obvious rhonchi or wheezing. Clear to auscultation. Breath sounds equal bilaterally. GASTROINTESTINAL: Abdomen soft, mild diffuse tenderness to palpation, moderately distended. BS normal. MUSCULOSKELETAL: Extremities without clubbing, cyanosis, or edema. No obvious deformities. NEUROLOGICAL: Awake, alert and oriented x4. No focal neurologic deficits. Moving both upper and lower extremities spontaneously. Medications and IVs Current Medications Medications (Trade) Dose Ordered Sig/Quin Route Start Time Stop Time Status Last Admin Sodium Chloride 1,000 ml @ 100 mls/hr Q10H IV 08/28/17 18:21 08/31/17 01:54 (NS Flush) 2 ml UNSCH PRN IV FLUSH 08/28/17 18:30 (NS Flush) 2 ml BID IV FLUSH 08/28/17 21:00 08/29/17 09:00 (Tylenol) 650 mg Q4H PRN PO 08/28/17 18:30 (Zofran Inj) 4 mg Q6H PRN IVP 08/28/17 18:30 08/31/17 12:01 (Narcan Inj) 0.4 mg UNSCH PRN IV PUSH 08/28/17 18:30 (Milk Of Magnesia Liq) 30 ml Q12H PRN PO 08/28/17 18:30 (Senokot) 17.2 mg Q12H PRN PO 08/28/17 18:30 (Dulcolax Supp) 10 mg DAILY PRN RECTAL 08/28/17 18:30 (Lactulose Liq) 30 ml DAILY PRN PO 08/28/17 18:30 (Xanax) 0.5 mg Q12HR PRN PO 08/28/17 18:30 (Norvasc) 5 mg DAILY PO 08/29/17 09:00 08/31/17 11:44 (Colestipol Pkt) 5 gm Q12HR PO 08/28/17 21:00 08/30/17 20:40 (Lactinex Pkt) 1 gm TID PO 08/29/17 09:00 08/31/17 09:00 (Prinivil) 20 mg DAILY PO 08/29/17 09:00 08/31/17 11:42 (Folate) 1 mg DAILY PO 08/29/17 09:00 09/03/17 08:59 08/31/17 11:42 (Vitamin B1) 100 mg DAILY PO 08/28/17 21:00 08/30/17 09:31 (Theragran M Tab) 1 tab DAILY PO 08/29/17 09:00 09/03/17 08:59 08/31/17 11:42 (Romazicon Inj) 0.2 mg Q1M PRN IV PUSH 08/28/17 19:30 (Ativan) 1 mg Q4H PRN PO 08/28/17 19:30 (Ativan Inj) 1 mg Q4H PRN IV PUSH 08/28/17 19:30 (Ativan) 2 mg Q2H PRN PO 08/28/17 19:30 (Ativan Inj) 2 mg Q2H PRN IV PUSH 08/28/17 19:30 (Ativan Inj) 2 mg Q1H PRN IV PUSH 08/28/17 19:30 (Ativan Inj) 2 mg Q15M PRN IV PUSH 08/28/17 19:30 (Haldol Inj) 2 mg Q15M PRN IM 08/28/17 19:30 (Dificid) 200 mg BID PO 08/28/17 21:00 09/07/17 20:59 08/31/17 11:41 (Morphine Inj) 4 mg Q3H PRN IV PUSH 08/29/17 08:00 08/31/17 11:52 (Morphine Inj) 2 mg Q3H PRN IV PUSH 08/29/17 08:00 08/29/17 18:00 (VANCOMYCIN for oral use only) 250 mg Q6HR PO 08/29/17 12:00 08/31/17 11:52 (Protonix) 40 mg DAILY PO 08/29/17 19:30 08/31/17 11:42 (Mag-Al Plus Susp Liq) 30 ml Q6H PRN PO 08/29/17 19:30 Ertapenem 1000 mg/ Sodium Chloride 100 ml @ 200 mls/hr Q24H IV 08/29/17 22:00 08/30/17 21:50 A/P Problem List: (1) C. difficile colitis ICD Code: A04.7 - Enterocolitis due to Clostridium difficile Status: Acute (2) Diverticulitis ICD Code: K57.92 - Diverticulitis of intestine, part unspecified, without perforation or abscess without bleeding (3) SHAVONNE (acute kidney injury) ICD Code: N17.9 - Acute kidney failure, unspecified Status: Resolved (4) Alcohol abuse ICD Code: F10.10 - Alcohol abuse, uncomplicated Status: Chronic Assessment and Plan 1. C Diff Colitis: Recurrent. Following w/ Dr. Kennedy as outpatient, on multiple courses of Vanc PO in light of ALLERGY to Flagyl, currently pending fecal transplant, now w/ recurrent abdominal pain and diarrhea. C Diff +. Will start Dificid 200mg bid. Consult Dr. Kennedy for further evaluation, 08/29 continue p.o. vancomycin and Dificid. Discussed the case with Dr. Henderson from infectious disease. Antibiotics per ID. 08/30 diarrhea is improving. Continue IV ertapenem, p.o. Dificid and oral vancomycin. Antibiotics as per ID. Appreciate GI consultation recommendations. Diet as tolerated. Outpatient follow-up with Dr. Kennedy. The patient is in the process of donor screening for stool transplant which will be done once diverticulitis is resolved. 08/31 continue antibiotics as per ID. Continue ertapenem IV, oral vancomycin. The patient will need IV antibiotics on discharge but is not ready yet. 2. Diverticulitis: H/o Diverticulitis, CT Abd/Pelvis w/ wall thickening consistent w/ diverticulitis, possibly compounded by C Diff colitis, in light of recurrent disease will continue w/ IV Zosyn for Diverticulitis. 08/29 discontinue IV Zosyn. Antibiotics as per ID. 08/31 continue antibiotics as per ID. 3. SHAVONNE: Creatinine 1.59, previously 1.20 on 08/09/17, IVF for hydration, repeat labs in am 08/29 repeat labs shows a worsening creatinine of 1.77. Continue normal saline and continue to monitor BUN and creatinine. Avoid nephrotoxins, monitor strict I's and O's. 08/31 acute kidney injury likely secondary to prerenal azotemia secondary to dehydration due to diarrhea. Creatinine back down to normal and trending down. Discontinue IV fluids. 4. Alcohol Abuse: +mild tremor, CIWA, Seizure Precautions, MVT/Thiamine/ Folate replacement. 08/30 tremors much improved. Continue CIWA protocol. 5. DVT Prophylaxis: SCD/Teds 6. Social work for d/c planning as needed. Discharge Planning Continue to monitor the medical floor. Pending ID clearance. Will need outpatient IV antibiotics set up. Case management to assist. Toby Garcia MD August 31, 2017 17:05
[2017-08-31] MEDS: ALPRAZolam 0.5 MG TAB PO PRN (18:59)
[2017-08-31 20:00] VITALS: BP 184/99; PULSE 100; RESP 17; TEMP 98; O2SAT 100
[2017-08-31] MEDS: ERTAPENEM 1,000 MG/NS 100 ML IV SCH ×2 (21:53)
[2017-09-01] MEDS: VANCOMYCIN 500 MG VIAL (FOR ORAL USE ONLY) PO SCH ×4 (00:22→19:39)
[2017-09-01 00:30] VITALS: BP 150/93; PULSE 96; RESP 18; TEMP 97.8; O2SAT 96
[2017-09-01] MEDS: MORPHINE SULFATE 4 MG/ML INJ IV PUSH PRN ×3 (00:47→14:55)
[2017-09-01 08:00] VITALS: BP 128/79; PULSE 86; RESP 16; TEMP 97.7; O2SAT 99
[2017-09-01] MEDS: amLODIPine BESYLATE 5 MG TAB PO SCH (09:52)
[2017-09-01] MEDS: FOLIC ACID 1 MG TAB PO SCH (09:52)
[2017-09-01] MEDS: PANTOPRAZOLE SOD 40 MG DELAYED RELEASE TAB PO SCH (09:52)
[2017-09-01] MEDS: THIAMINE HCL 100 MG TAB PO SCH (09:52)
[2017-09-01] MEDS: FIDAXOMICIN 200 MG TAB PO SCH ×2 (09:52→20:34)
[2017-09-01] MEDS: SODIUM CHLORIDE 0.9% FLUSH 10 ML FLUSH IV FLUSH SCH ×2 (09:52→20:36)
[2017-09-01] MEDS: LACTOBACILLUS ACIDOPHILUS 1 GM PACKET PO SCH ×3 (09:53→19:39)
[2017-09-01] MEDS: MULTIVITAMINS/MINERALS THERAPEUTIC TAB PO SCH (09:53)
[2017-09-01] MEDS: LISINOPRIL 20 MG TAB PO SCH (09:53)
[2017-09-01] MEDS: COLESTIPOL HCL 5 GM PACKET PO SCH ×2 (09:54→20:36)
[2017-09-01] MEDS ORDERED: METHOCARBAMOL 500 MG TAB PO ONE (11:15)
[2017-09-01 12:00] VITALS: BP 149/96; PULSE 95; RESP 16; TEMP 98.1; O2SAT 100
[2017-09-01] MEDS ORDERED: DIAZEPAM 5 MG TAB PO ONE (13:30)
[2017-09-01 16:00] VITALS: BP 185/96; PULSE 120; RESP 16; TEMP 98.8; O2SAT 98
[2017-09-01 17:57] LABS: OSMOTIC GAP 106 mOsm/kg (See Comment)
[2017-09-01] MEDS ORDERED: HYDROmorphone HCL PF 1 MG/ML VIAL IV PUSH ONE (18:00)
--- NOTE | 2017-09-01 18:14 | HHI.PR ---
Subjective Remarks Late entry, the patient was seen earlier at 11:15 AM. Patient complains of neck pain and inability to move his head to the sides or down as well as up. Denies chest pain or shortness of breath. States his diarrhea is much improved and has only had 2 loose stools last night and 1 today. Objective Vitals Vital Signs Date Time Temp Pulse Resp B/P (MAP) Pulse Ox O2 Delivery O2 Flow Rate FiO2 09/01/17 12:00 98.1 95 16 149/96 (113) 100 09/01/17 08:00 97.7 86 16 128/79 (95) 99 09/01/17 00:52 17 09/01/17 00:30 97.8 96 18 150/93 (112) 96 08/31/17 20:00 98.0 100 17 184/99 (127) 100 I/O 08/31/17 08/31/17 08/31/17 09/01/17 09/01/17 09/01/17 07:00 15:00 23:00 07:00 15:00 23:00 Intake Total 1270 ml 1300 ml 780 ml 500 ml Balance 1270 ml 1300 ml 780 ml 500 ml Intake Oral 270 ml 1200 ml 780 ml IV Total 1000 ml 100 ml 500 ml # Voids 3 10 3 # Bowel Movements 0 1 1 Result Diagram: 08/31/1781608/31/17816 Objective Remarks GENERAL: Pleasant middle-aged white male in no acute distress. Mildly tremulous. HEENT: PERRLA, EOMI. No scleral icterus or conjunctival pallor. No lid lag or facial droop. CARDIOVASCULAR: Regular rate and rhythm. No obvious murmurs to auscultation. No chest tenderness to palpation. RESPIRATORY: No obvious rhonchi or wheezing. Clear to auscultation. Breath sounds equal bilaterally. GASTROINTESTINAL: Abdomen soft, mild diffuse tenderness to palpation, moderately distended. BS normal. MUSCULOSKELETAL: Extremities without clubbing, cyanosis, or edema. No obvious deformities. NEUROLOGICAL: Awake, alert and oriented x4. No focal neurologic deficits. Moving both upper and lower extremities spontaneously. Medications and IVs Current Medications Medications (Trade) Dose Ordered Sig/Quin Route Start Time Stop Time Status Last Admin (NS Flush) 2 ml UNSCH PRN IV FLUSH 08/28/17 18:30 (NS Flush) 2 ml BID IV FLUSH 08/28/17 21:00 09/01/17 09:52 (Tylenol) 650 mg Q4H PRN PO 08/28/17 18:30 (Zofran Inj) 4 mg Q6H PRN IVP 08/28/17 18:30 08/31/17 12:01 (Narcan Inj) 0.4 mg UNSCH PRN IV PUSH 08/28/17 18:30 (Milk Of Magnesia Liq) 30 ml Q12H PRN PO 08/28/17 18:30 (Senokot) 17.2 mg Q12H PRN PO 08/28/17 18:30 (Dulcolax Supp) 10 mg DAILY PRN RECTAL 08/28/17 18:30 (Lactulose Liq) 30 ml DAILY PRN PO 08/28/17 18:30 (Xanax) 0.5 mg Q12HR PRN PO 08/28/17 18:30 08/31/17 18:59 (Norvasc) 5 mg DAILY PO 08/29/17 09:00 09/01/17 09:52 (Colestipol Pkt) 5 gm Q12HR PO 08/28/17 21:00 09/01/17 09:54 (Lactinex Pkt) 1 gm TID PO 08/29/17 09:00 09/01/17 11:57 (Prinivil) 20 mg DAILY PO 08/29/17 09:00 09/01/17 09:53 (Folate) 1 mg DAILY PO 08/29/17 09:00 09/03/17 08:59 09/01/17 09:52 (Vitamin B1) 100 mg DAILY PO 08/28/17 21:00 09/01/17 09:52 (Theragran M Tab) 1 tab DAILY PO 08/29/17 09:00 09/03/17 08:59 09/01/17 09:53 (Romazicon Inj) 0.2 mg Q1M PRN IV PUSH 08/28/17 19:30 (Ativan) 1 mg Q4H PRN PO 08/28/17 19:30 (Ativan Inj) 1 mg Q4H PRN IV PUSH 08/28/17 19:30 (Ativan) 2 mg Q2H PRN PO 08/28/17 19:30 (Ativan Inj) 2 mg Q2H PRN IV PUSH 08/28/17 19:30 (Ativan Inj) 2 mg Q1H PRN IV PUSH 08/28/17 19:30 (Ativan Inj) 2 mg Q15M PRN IV PUSH 08/28/17 19:30 (Haldol Inj) 2 mg Q15M PRN IM 08/28/17 19:30 (Dificid) 200 mg BID PO 08/28/17 21:00 09/07/17 20:59 09/01/17 09:52 (Morphine Inj) 4 mg Q3H PRN IV PUSH 08/29/17 08:00 09/01/17 14:55 (Morphine Inj) 2 mg Q3H PRN IV PUSH 08/29/17 08:00 09/01/17 11:56 (VANCOMYCIN for oral use only) 250 mg Q6HR PO 08/29/17 12:00 09/01/17 11:57 (Protonix) 40 mg DAILY PO 08/29/17 19:30 09/01/17 09:52 (Mag-Al Plus Susp Liq) 30 ml Q6H PRN PO 08/29/17 19:30 Ertapenem 1000 mg/ Sodium Chloride 100 ml @ 200 mls/hr Q24H IV 08/29/17 22:00 08/31/17 21:53 A/P Problem List: (1) C. difficile colitis ICD Code: A04.7 - Enterocolitis due to Clostridium difficile Status: Acute (2) Diverticulitis ICD Code: K57.92 - Diverticulitis of intestine, part unspecified, without perforation or abscess without bleeding (3) SHAVONNE (acute kidney injury) ICD Code: N17.9 - Acute kidney failure, unspecified Status: Resolved (4) Alcohol abuse ICD Code: F10.10 - Alcohol abuse, uncomplicated Status: Chronic Assessment and Plan 1. C Diff Colitis: Recurrent. Following w/ Dr. Kennedy as outpatient, on multiple courses of Vanc PO in light of ALLERGY to Flagyl, currently pending fecal transplant, now w/ recurrent abdominal pain and diarrhea. C Diff +. Will start Dificid 200mg bid. Consult Dr. Kennedy for further evaluation, 08/29 continue p.o. vancomycin and Dificid. Discussed the case with Dr. Henderson from infectious disease. Antibiotics per ID. 08/30 diarrhea is improving. Continue IV ertapenem, p.o. Dificid and oral vancomycin. Antibiotics as per ID. Appreciate GI consultation recommendations. Diet as tolerated. Outpatient follow-up with Dr. Kennedy. The patient is in the process of donor screening for stool transplant which will be done once diverticulitis is resolved. 09/01 Continue antibiotics as per ID. Continue ertapenem IV, oral vancomycin. The patient will need IV antibiotics on discharge but is not ready yet. 2. Diverticulitis: H/o Diverticulitis, CT Abd/Pelvis w/ wall thickening consistent w/ diverticulitis, possibly compounded by C Diff colitis, in light of recurrent disease will continue w/ IV Zosyn for Diverticulitis. 08/29 discontinue IV Zosyn. Antibiotics as per ID. 08/31 continue antibiotics as per ID. 3. SHAVONNE: Creatinine 1.59, previously 1.20 on 08/09/17, IVF for hydration, repeat labs in am 08/29 repeat labs shows a worsening creatinine of 1.77. Continue normal saline and continue to monitor BUN and creatinine. Avoid nephrotoxins, monitor strict I's and O's. 08/31 acute kidney injury likely secondary to prerenal azotemia secondary to dehydration due to diarrhea. Creatinine back down to normal and trending down. Discontinue IV fluids. 4. Alcohol Abuse: +mild tremor, CIWA, Seizure Precautions, MVT/Thiamine/ Folate replacement. 08/30 tremors much improved. Continue CIWA protocol. 5. DVT Prophylaxis: SCD/Teds 6. Dystonic reaction: The patient has diverticulosis in the neck. The patient has been administered Robaxin and oral Valium without improvement. I will Rx trihexyphenidyl 2 mg p.o. every 12 hours. Patient also with increased pain in the neck with tachycardia and elevated blood pressure despite of administration of IV morphine sulfate. I will give 1 dose of IV Dilaudid as well. 6. Social work for d/c planning as needed. Discharge Planning Continue to monitor the medical floor. Pending ID clearance. Will need outpatient IV antibiotics set up. Case management to assist. Toby Garcia MD September 01, 2017 18:14
[2017-09-01] MEDS ORDERED: HYDROmorphone HCL PF 2 MG/ML VIAL IV ONE (19:00)
[2017-09-01 20:00] VITALS: BP 180/113; PULSE 133; RESP 18; TEMP 97.8; O2SAT 99
[2017-09-01] MEDS: ALPRAZolam 0.5 MG TAB PO PRN (20:35)
[2017-09-01] MEDS: METHOCARBAMOL 500 MG TAB PO PRN (20:35)
[2017-09-01] MEDS: ERTAPENEM 1,000 MG/NS 100 ML IV SCH ×2 (20:36)
[2017-09-01] MEDS: TRIHEXYPHENIDYL HCL 2 MG TAB PO SCH (22:14)
[2017-09-02] VITALS: BP 135/84; PULSE 112; RESP 18; TEMP 97.9; O2SAT 99
[2017-09-02] MEDS ORDERED: guaiFENesin SOLUTION 200 MG/10 ML CUP PO ONE
[2017-09-02] MEDS: VANCOMYCIN 500 MG VIAL (FOR ORAL USE ONLY) PO SCH ×4 (00:01→17:25)
[2017-09-02] MEDS: MORPHINE SULFATE 4 MG/ML INJ IV PUSH PRN ×8 (03:24→21:01)
[2017-09-02] MEDS: METHOCARBAMOL 500 MG TAB PO PRN ×2 (06:32→18:29)
[2017-09-02 08:00] VITALS: BP 112/72; PULSE 98; RESP 16; TEMP 97.8; O2SAT 97
[2017-09-02] MEDS: LACTOBACILLUS ACIDOPHILUS 1 GM PACKET PO SCH ×3 (09:00→17:27)
[2017-09-02] MEDS: COLESTIPOL HCL 5 GM PACKET PO SCH ×2 (09:00→20:56)
[2017-09-02] MEDS: TRIHEXYPHENIDYL HCL 2 MG TAB PO SCH ×2 (09:00→20:55)
[2017-09-02] MEDS: THIAMINE HCL 100 MG TAB PO SCH (09:00)
[2017-09-02] MEDS: FIDAXOMICIN 200 MG TAB PO SCH ×2 (09:54→20:57)
[2017-09-02] MEDS: FOLIC ACID 1 MG TAB PO SCH (09:54)
[2017-09-02] MEDS: SODIUM CHLORIDE 0.9% FLUSH 10 ML FLUSH IV FLUSH SCH ×2 (09:54→21:00)
[2017-09-02] MEDS: LISINOPRIL 20 MG TAB PO SCH (09:54)
[2017-09-02] MEDS: amLODIPine BESYLATE 5 MG TAB PO SCH (09:54)
[2017-09-02] MEDS: PANTOPRAZOLE SOD 40 MG DELAYED RELEASE TAB PO SCH (09:54)
[2017-09-02] MEDS: MULTIVITAMINS/MINERALS THERAPEUTIC TAB PO SCH (09:54)
[2017-09-02 12:00] VITALS: BP 126/76; PULSE 98; RESP 18; TEMP 97.5; O2SAT 98
--- NOTE | 2017-09-02 13:03 | HHI.IDPN ---
Subjective Subjective Remarks ID COVERAGE is a 62-year-old male with past medical history significant for hypertension, diverticulitis, GERD, history of pancreatitis secondary to alcohol binge, chronic renal insufficiency and recurrent Clostridium difficile infection who is well-known to our service from previous hospitalization for treatment of recurrent C. difficile who presents to [facility] with complaints of acute onset of nausea, vomiting, abdominal pain and watery diarrhea 1 day. Patient states that last night he developed acute onset of his symptoms with ongoing diarrhea occurring every half hour and progressive abdominal pain. He denies any fever or chills at home. Patient has a lengthy history of recurrent C. difficile infections starting approximately 3 years ago after he was given IV Levaquin and oral Bactrim. Patient has had multiple hospitalizations for recurrent infection treated with oral vancomycin. Patient has an allergy to Flagyl. Patient's most recent admission was on 08/06/17 at that time his C. difficile study was actually negative and he was treated with po Dificid and Vancomycin discharged home on vancomycin taper. Patient follows with Dr. Kennedy as outpatient and is scheduled to undergo fecal transplant 2017. Patient denies any antibiotic use since his last hospitalization. He denies any known exposure to C. difficile. He and his girlfriend live together and she has contracted C. difficile twice the last time being a year and a half ago. Patient states he is very diligent about using Clorox bleach in the home in attempt to prevent recurrence. Patient reports that he has had for endoscopic procedures in the past 3 years and most recently had a flexible sigmoidoscopy 04/22/[address] Walsh and was found to have diverticulosis, colon polyp and nonbleeding hemorrhoids with pathology revealing slightly thickened basement membrane insufficient for definitive diagnosis of collagenous colitis. In the ED, patient presented with sepsis with white count of 13.7, tachycardia with heart rate of 128 and source of C. difficile infection. Lactic acid 0.9, Anion gap of 16. CT of abdomen pelvis revealed diffuse thickening involving the proximal and mid sigmoid colon suggestive of acute diverticulitis. Patient was started on oral Dificid and IV Zosyn. Infectious disease consultation has been requested for evaluation and management of recurrent C. difficile infection. Patient seen and examined. He is afebrile. His white count is trending down. Patient states he continues to have copious amounts of watery diarrhea occurring every half hour. He complains of nausea and has vomited twice since admission and believes he is having a reaction to Zosyn. He continues to have significant diffuse abdominal pain. He denies any complaints of fever or chills. He denies any chest pain or shortness of breath. He denies any complaints of dysuria. Notes reviewed No BM Poor po intake Having neck pain x 3 days Difficulty and pain with any movement of head No paresthesia inm UE No abdominal pain No N/V Waiting for cervical spine MRI Labs reviewed Imaging studies reviewed Cultures reviewed Antibiotics IV Ertapenem PO Vancomycin Dificid Current Medications Medications (Trade) Dose Ordered Sig/Quin Route Start Time Stop Time Status Last Admin (NS Flush) 2 ml UNSCH PRN IV FLUSH 08/28/17 18:30 (NS Flush) 2 ml BID IV FLUSH 08/28/17 21:00 09/02/17 09:54 (Tylenol) 650 mg Q4H PRN PO 08/28/17 18:30 (Zofran Inj) 4 mg Q6H PRN IVP 08/28/17 18:30 08/31/17 12:01 (Narcan Inj) 0.4 mg UNSCH PRN IV PUSH 08/28/17 18:30 (Milk Of Magnesia Liq) 30 ml Q12H PRN PO 08/28/17 18:30 (Senokot) 17.2 mg Q12H PRN PO 08/28/17 18:30 (Dulcolax Supp) 10 mg DAILY PRN RECTAL 08/28/17 18:30 (Lactulose Liq) 30 ml DAILY PRN PO 08/28/17 18:30 (Xanax) 0.5 mg Q12HR PRN PO 08/28/17 18:30 09/01/17 20:35 (Norvasc) 5 mg DAILY PO 08/29/17 09:00 09/02/17 09:54 (Colestipol Pkt) 5 gm Q12HR PO 08/28/17 21:00 09/01/17 09:54 (Lactinex Pkt) 1 gm TID PO 08/29/17 09:00 09/02/17 09:00 (Prinivil) 20 mg DAILY PO 08/29/17 09:00 09/02/17 09:54 (Folate) 1 mg DAILY PO 08/29/17 09:00 09/03/17 08:59 09/02/17 09:54 (Vitamin B1) 100 mg DAILY PO 08/28/17 21:00 09/02/17 09:00 (Theragran M Tab) 1 tab DAILY PO 08/29/17 09:00 09/03/17 08:59 09/02/17 09:54 (Romazicon Inj) 0.2 mg Q1M PRN IV PUSH 08/28/17 19:30 (Ativan) 1 mg Q4H PRN PO 08/28/17 19:30 (Ativan Inj) 1 mg Q4H PRN IV PUSH 08/28/17 19:30 (Ativan) 2 mg Q2H PRN PO 08/28/17 19:30 (Ativan Inj) 2 mg Q2H PRN IV PUSH 08/28/17 19:30 (Ativan Inj) 2 mg Q1H PRN IV PUSH 08/28/17 19:30 (Ativan Inj) 2 mg Q15M PRN IV PUSH 08/28/17 19:30 (Haldol Inj) 2 mg Q15M PRN IM 08/28/17 19:30 (Dificid) 200 mg BID PO 08/28/17 21:00 09/07/17 20:59 09/02/17 09:54 (Morphine Inj) 4 mg Q3H PRN IV PUSH 08/29/17 08:00 09/02/17 10:56 (Morphine Inj) 2 mg Q3H PRN IV PUSH 08/29/17 08:00 09/01/17 11:56 (VANCOMYCIN for oral use only) 250 mg Q6HR PO 08/29/17 12:00 09/02/17 06:31 (Protonix) 40 mg DAILY PO 08/29/17 19:30 09/02/17 09:54 (Mag-Al Plus Susp Liq) 30 ml Q6H PRN PO 08/29/17 19:30 Ertapenem 1000 mg/ Sodium Chloride 100 ml @ 200 mls/hr Q24H IV 08/29/17 22:00 09/01/17 20:36 (Artane) 2 mg Q12HR PO 09/01/17 21:00 09/02/17 09:00 (Robaxin) 750 mg Q8HR PRN PO 09/01/17 20:00 09/02/17 06:32 Lines PIV with no e/o infection Past Medical History Recurrent C difficile infection Hypertension History of diverticulitis Chronic renal insufficiency GERD Arthritis History of pancreatitis after binge drinking following his divorce History of Herpes zoster Hx of possible small sigmoid abscess with CT abd/pelvis 07/14/17 showing 2.3 x 1.5 cm rim-enhancing fluid collection the distal sigmoid colonic wall, possibly a small abscess of other significant inflammatory change is identified in the surrounding soft tissues. Hx of Klebsiella Pneumoniae bacteremia Allergies: Coded Allergies: codeine (Verified Allergy, Severe, RASH, 08/28/17) ibuprofen (Verified Allergy, Severe, Swelling, 08/28/17) of eyes levofloxacin (Verified Allergy, Severe, ACHILLES TENDON PROBLEM, 08/28/17) metronidazole (Verified Allergy, Severe, Nausea/Vomiting, 08/28/17) Objective . Vital Signs Date Time Temp Pulse Resp B/P (MAP) Pulse Ox O2 Delivery O2 Flow Rate FiO2 09/02/17 12:00 97.5 98 18 126/76 (93) 98 09/02/17 08:00 97.8 98 16 112/72 (85) 97 09/02/17 03:33 20 09/02/17 00:00 97.9 112 18 135/84 (101) 99 09/01/17 20:00 97.8 133 18 180/113 (135) 99 09/01/17 16:00 98.8 120 16 185/96 (125) 98 09/02/17 09/02/17 09/03/17 15:00 23:00 07:00 Intake Total 480 ml Output Total 1300 ml Balance -820 ml Intake Oral 480 ml Output Urine Total 1300 ml Imaging Last Impressions Abdomen/Pelvis CT 08/28/17 0000 Signed Impressions: Service Date/Time: Monday, August 28, 2017 17:24 - CONCLUSION: 1. Diffuse thickening involving the wall of the proximal and mid sigmoid colon consistent with probable acute diverticulitis. Clinical correlation is recommended. 2. Mild chronic compression deformity involving T11. 3. Stable bilateral renal cysts. 4. Degenerative changes and scoliosis of lumbar spine. Nilesh Simms MD Physical Exam GENERAL: Awake and alert. Sitting up. Keeping head still. NAD SKIN: No rashes, ecchymoses or lesions. Cool and dry. HEAD: Atraumatic. Normocephalic. No temporal or scalp tenderness. EYES: Pupils equal round and reactive. Extraocular motions intact. No scleral icterus. No injection or drainage. ENT: Nose without bleeding or purulent drainage. Airway patent. No oral lesions. NECK: Trachea midline. No lymphadenopathy. Supple, nontender, no meningeal signs. No swelling or redness noted in posterior neck CARDIOVASCULAR: Regular rate and rhythm without murmurs, gallops, or rubs. RESPIRATORY: Clear to auscultation. Breath sounds equal bilaterally. No wheezes , rales, or rhonchi. GASTROINTESTINAL: Abdomen soft, nondistended. min tenderness. No guarding. MUSCULOSKELETAL: Extremities without clubbing, cyanosis, or edema. No calf tenderness. NEUROLOGICAL: Non-focal PSYCHIATRIC: Appropriate mood and affect. Normal judgment and insight. PIV with no e/o infection Assessment & Plan Remarks Sepsis with leukocytosis, tachycardia and suspected source of C. difficile positive infection, better C. difficile diarrhea/colitis ?acute diverticulitis -CT abd/pelvis reveals diffuse thickening involving the proximal and mid sigmoid colon suggestive of acute diverticulitis Leukocytosis secondary to C. difficile infection, white count trending down Acute on chronic renal insufficiency, suspect secondary to dehydration/volume depletion, worsening History of recurrent C. difficile -Patient follows with Dr. Kennedy as outpatient and is scheduled to undergo fecal transplant 09/14/17 Hx of diverticulitis ?sigmoid abscess per CT abd/pelvis 07/14/17 Hx of Klebsiella Pneumoniae bacteremia 2017 HTN Hx of alcohol abuse and pancreatitis Marijuana use Neck pain, ?muscular Recs Continue Ertapenem IV Continue Oral vanco , also on Dificid Will need IV abx on discharge Work-up for neck pain in progress Yaa Kelly MD September 02, 2017 13:03
--- NOTE | 2017-09-02 14:41 | HHI.PR ---
Subjective Remarks Delayed entry - patient seen at 10:40 am. Diarrhea has resolved. patient still c/o inability to move head to either side, up or down. Patient states has history of neck surgery. Objective Vitals Vital Signs Date Time Temp Pulse Resp B/P (MAP) Pulse Ox O2 Delivery O2 Flow Rate FiO2 09/02/17 12:00 97.5 98 18 126/76 (93) 98 09/02/17 08:00 97.8 98 16 112/72 (85) 97 09/02/17 03:33 20 09/02/17 00:00 97.9 112 18 135/84 (101) 99 09/01/17 20:00 97.8 133 18 180/113 (135) 99 09/01/17 16:00 98.8 120 16 185/96 (125) 98 I/O 09/01/17 09/01/17 09/01/17 09/02/17 09/02/17 09/02/17 07:00 15:00 23:00 07:00 15:00 23:00 Intake Total 780 ml 1500 ml 480 ml Output Total 1300 ml Balance 780 ml 1500 ml -820 ml Intake Oral 780 ml 1000 ml 480 ml IV Total 500 ml Output Urine Total 1300 ml # Voids 3 4 # Bowel Movements 1 0 Result Diagram: 08/31/1781608/31/17816 Objective Remarks GENERAL: Pleasant middle-aged white male in no acute distress. Mildly tremulous. HEENT: PERRLA, EOMI. No scleral icterus or conjunctival pallor. No lid lag or facial droop. CARDIOVASCULAR: Regular rate and rhythm. No obvious murmurs to auscultation. No chest tenderness to palpation. RESPIRATORY: No obvious rhonchi or wheezing. Clear to auscultation. Breath sounds equal bilaterally. GASTROINTESTINAL: Abdomen soft, mild diffuse tenderness to palpation, moderately distended. BS normal. MUSCULOSKELETAL: Extremities without clubbing, cyanosis, or edema. No obvious deformities. NEUROLOGICAL: Awake, alert and oriented x4. No focal neurologic deficits. Moving both upper and lower extremities spontaneously. A/P Problem List: (1) C. difficile colitis ICD Code: A04.7 - Enterocolitis due to Clostridium difficile Status: Acute (2) Diverticulitis ICD Code: K57.92 - Diverticulitis of intestine, part unspecified, without perforation or abscess without bleeding (3) SHAVONNE (acute kidney injury) ICD Code: N17.9 - Acute kidney failure, unspecified Status: Resolved (4) Alcohol abuse ICD Code: F10.10 - Alcohol abuse, uncomplicated Status: Chronic Assessment and Plan 1. C Diff Colitis: Recurrent. Following w/ Dr. Kennedy as outpatient, on multiple courses of Vanc PO in light of ALLERGY to Flagyl, currently pending fecal transplant, now w/ recurrent abdominal pain and diarrhea. C Diff +. Will start Dificid 200mg bid. Consult Dr. Kennedy for further evaluation, 08/29 continue p.o. vancomycin and Dificid. Discussed the case with Dr. Henderson from infectious disease. Antibiotics per ID. 08/30 diarrhea is improving. Continue IV ertapenem, p.o. Dificid and oral vancomycin. Antibiotics as per ID. Appreciate GI consultation recommendations. Diet as tolerated. Outpatient follow-up with Dr. Kennedy. The patient is in the process of donor screening for stool transplant which will be done once diverticulitis is resolved. 09/01 Continue antibiotics as per ID. Continue ertapenem IV, oral vancomycin. The patient will need IV antibiotics on discharge but is not ready yet. 2. Diverticulitis: H/o Diverticulitis, CT Abd/Pelvis w/ wall thickening consistent w/ diverticulitis, possibly compounded by C Diff colitis, in light of recurrent disease will continue w/ IV Zosyn for Diverticulitis. 08/29 discontinue IV Zosyn. Antibiotics as per ID. 08/31 continue antibiotics as per ID. 3. SHAVONNE: Creatinine 1.59, previously 1.20 on 08/09/17, IVF for hydration, repeat labs in am 08/29 repeat labs shows a worsening creatinine of 1.77. Continue normal saline and continue to monitor BUN and creatinine. Avoid nephrotoxins, monitor strict I's and O's. 08/31 acute kidney injury likely secondary to prerenal azotemia secondary to dehydration due to diarrhea. Creatinine back down to normal and trending down. Discontinue IV fluids. 4. Alcohol Abuse: +mild tremor, CIWA, Seizure Precautions, MVT/Thiamine/ Folate replacement. 08/30 tremors much improved. Continue CIWA protocol. 5. DVT Prophylaxis: SCD/Teds 6. Dystonic reaction: The patient has diverticulosis in the neck. The patient has been administered Robaxin and oral Valium without improvement. I will Rx trihexyphenidyl 2 mg p.o. every 12 hours. Patient also with increased pain in the neck with tachycardia and elevated blood pressure despite of administration of IV morphine sulfate. I will give 1 dose of IV Dilaudid as well. 5/10 Neck pain still present. Patient insisting he has h/o neck surgery. Will order MRI neck. Continue Robaxin and trihexyphenidyl. 6. Social work for d/c planning as needed. Discharge Planning Continue to monitor the medical floor. Pending ID clearance. Will need outpatient IV antibiotics set up. Case management to assist. DC pending improvement of neck pain and dystonic reaction. Toby Garcia MD September 02, 2017 14:41
[2017-09-02 16:00] VITALS: BP 138/87; PULSE 99; RESP 16; TEMP 98; O2SAT 98
--- NOTE | 2017-09-02 17:24 | RADRPT ---
EXAM DATE/TIME: 09/02/2017 16:36 [place] COMPARISON: No previous studies available for comparison. INDICATIONS : Pain. MEDICAL HISTORY : Hypertension. SURGICAL HISTORY : Achills tendon sx, Left femur rodding, Neck sx over 20 years ago. ENCOUNTER: Initial ACUITY: 2 day PAIN SCORE: 7/10 LOCATION: Bilateral neck region. TECHNIQUE: Multiplanar, multisequence MRI examination of the cervical spine was performed. FINDINGS: VERTEBRAE: Normal vertebral body height. Homogeneous marrow signal. ALIGNMENT: No evidence of subluxation. CORD: Normal configuration and signal. POST FOSSA: The cerebellar tonsils are normal in position. C2-C3: The thecal sac has a normal configuration. There is no evidence of disc herniation or spinal canal s tenosis. The neural foramina are patent bilaterally. C3-C4: The thecal sac has a normal configuration. There is no evidence of disc herniation or spinal canal s tenosis. The neural foramina are patent bilaterally. C4-C5: A minimal broad dorsal disc protrusion most prominent in a left paracentral location with slight effa cement of left lateral recess. Minimal indentation of ventral thecal sac elsewhere. Foramina appear a dequate. C5-C6: Mild broad undulating dorsal disc protrusion, slightly asymmetric to the left with mild asymmetricall y left-sided foraminal and lateral recess stenosis. Slight degree of concentric canal stenosis. C6-C7: Slight broad dorsal disc protrusion with slight indentation of ventral thecal sac. Mild bilateral for aminal stenosis. C7-T1: The thecal sac has a normal configuration. There is no evidence of disc herniation or spinal canal s tenosis. The neural foramina are patent bilaterally. CONCLUSION: Mild multilevel disc disease changes. No acute bony findings. Alonzo Gates MD on September 02, 2017 at 17:19 Board Certified Radiologist. This report was verified electronically.
[2017-09-02 20:00] VITALS: BP_SYST 113; BP_SYST 141; BP_DIAS 56; BP_DIAS 82; PULSE 105; RESP 18; TEMP 98.9; O2SAT 96
[2017-09-02] MEDS: ERTAPENEM 1,000 MG/NS 100 ML IV SCH ×2 (20:57)
[2017-09-02] MEDS: ALPRAZolam 0.5 MG TAB PO PRN (22:04)
[2017-09-03] VITALS: BP 122/78; PULSE 95; RESP 18; TEMP 98.6; O2SAT 95
[2017-09-03] MEDS: VANCOMYCIN 500 MG VIAL (FOR ORAL USE ONLY) PO SCH ×5 (00:21→22:59)
[2017-09-03] MEDS: MORPHINE SULFATE 4 MG/ML INJ IV PUSH PRN ×2 (04:13→09:06)
[2017-09-03 08:00] VITALS: BP 124/77; PULSE 103; RESP 18; TEMP 99.3; O2SAT 97
[2017-09-03] MEDS: SODIUM CHLORIDE 0.9% FLUSH 10 ML FLUSH IV FLUSH SCH ×2 (09:00→22:05)
[2017-09-03] MEDS: COLESTIPOL HCL 5 GM PACKET PO SCH ×2 (09:00→21:00)
[2017-09-03] MEDS: LACTOBACILLUS ACIDOPHILUS 1 GM PACKET PO SCH ×3 (09:00→17:36)
[2017-09-03] MEDS: TRIHEXYPHENIDYL HCL 2 MG TAB PO SCH (09:05)
[2017-09-03] MEDS: amLODIPine BESYLATE 5 MG TAB PO SCH (09:05)
[2017-09-03] MEDS: THIAMINE HCL 100 MG TAB PO SCH (09:05)
[2017-09-03] MEDS: PANTOPRAZOLE SOD 40 MG DELAYED RELEASE TAB PO SCH (09:05)
[2017-09-03] MEDS: LISINOPRIL 20 MG TAB PO SCH (09:06)
[2017-09-03] MEDS: FIDAXOMICIN 200 MG TAB PO SCH ×2 (09:06→22:04)
[2017-09-03] MEDS ORDERED: oxyCODONE/ACETAMINOPHEN 5 MG/325 MG TAB PO PRN (10:30)
[2017-09-03 12:00] VITALS: BP 125/77; PULSE 99; RESP 16; TEMP 97.3; O2SAT 99
[2017-09-03] MEDS: BACLOFEN 10 MG TAB PO SCH ×2 (12:12→22:03)
[2017-09-03] MEDS: oxyCODONE/ACETAMINOPHEN 5 MG/325 MG TAB PO PRN ×3 (12:14→23:00)
--- NOTE | 2017-09-03 12:35 | HHI.PR ---
Subjective Remarks Diarrhea has resolved Patient states neck pain is better and he is now able to move slowly his neck. However he c/o right lower extremity weakness and pain, denies back pain. Denies urine or bowel incontinence. Objective Vitals Vital Signs Date Time Temp Pulse Resp B/P (MAP) Pulse Ox O2 Delivery O2 Flow Rate FiO2 09/03/17 12:00 97.3 99 16 125/77 (93) 99 09/03/17 08:00 99.3 103 18 124/77 (93) 97 09/03/17 00:00 98.6 95 18 122/78 (93) 95 09/02/17 20:00 98.9 105 18 141/82 (101) 96 09/02/17 16:00 98.0 99 16 138/87 (104) 98 I/O 09/02/17 09/02/17 09/02/17 09/03/17 09/03/17 09/03/17 07:00 15:00 23:00 07:00 15:00 23:00 Intake Total 480 ml 480 ml 100 ml Output Total 1300 ml Balance -820 ml 480 ml 100 ml Intake Oral 480 ml 480 ml IV Total 0 ml 100 ml Output Urine Total 1300 ml # Voids 6 2 # Bowel Movements 3 Result Diagram: 08/31/1781608/31/17816 Imaging Last Impressions Lumbar Spine MRI 09/03/17 0000 Signed Impressions: Service Date/Time: Sunday, September 03, 2017 18:09 - CONCLUSION: 1. No acute abnormality. 2. Mild degenerative changes without neural impingement or central canal stenosis. José Miguel Hussein Jr., MD Cervical Spine MRI 09/02/17 0000 Signed Impressions: Service Date/Time: August 16:36 - CONCLUSION: Mild multilevel disc disease changes. No acute bony findings. Alonzo Gates MD Abdomen/Pelvis CT 08/28/17 0000 Signed Impressions: Service Date/Time: Monday, August 28, 2017 17:24 - CONCLUSION: 1. Diffuse thickening involving the wall of the proximal and mid sigmoid colon consistent with probable acute diverticulitis. Clinical correlation is recommended. 2. Mild chronic compression deformity involving T11. 3. Stable bilateral renal cysts. 4. Degenerative changes and scoliosis of lumbar spine. Nilesh Simms MD Objective Remarks GENERAL: Pleasant middle-aged white male in no acute distress. Mildly tremulous. HEENT: PERRLA, EOMI. No scleral icterus or conjunctival pallor. No lid lag or facial droop. CARDIOVASCULAR: Regular rate and rhythm. No obvious murmurs to auscultation. No chest tenderness to palpation. RESPIRATORY: No obvious rhonchi or wheezing. Clear to auscultation. Breath sounds equal bilaterally. GASTROINTESTINAL: Abdomen soft, mild diffuse tenderness to palpation, moderately distended. BS normal. MUSCULOSKELETAL: Extremities without clubbing, cyanosis, or edema. No obvious deformities. NEUROLOGICAL: Awake, alert and oriented x4. No focal neurologic deficits. Moving both upper and lower extremities spontaneously. A/P Problem List: (1) C. difficile colitis ICD Code: A04.7 - Enterocolitis due to Clostridium difficile Status: Acute (2) Diverticulitis ICD Code: K57.92 - Diverticulitis of intestine, part unspecified, without perforation or abscess without bleeding (3) SHAVONNE (acute kidney injury) ICD Code: N17.9 - Acute kidney failure, unspecified Status: Resolved (4) Alcohol abuse ICD Code: F10.10 - Alcohol abuse, uncomplicated Status: Chronic Assessment and Plan 1. C Diff Colitis: Recurrent. Following w/ Dr. Kennedy as outpatient, on multiple courses of Vanc PO in light of ALLERGY to Flagyl, currently pending fecal transplant, now w/ recurrent abdominal pain and diarrhea. C Diff +. Will start Dificid 200mg bid. Consult Dr. Kennedy for further evaluation, 08/29 continue p.o. vancomycin and Dificid. Discussed the case with Dr. Henderson from infectious disease. Antibiotics per ID. 08/30 diarrhea is improving. Continue IV ertapenem, p.o. Dificid and oral vancomycin. Antibiotics as per ID. Appreciate GI consultation recommendations. Diet as tolerated. Outpatient follow-up with Dr. Kennedy. The patient is in the process of donor screening for stool transplant which will be done once diverticulitis is resolved. 09/03 Continue antibiotics as per ID. Continue ertapenem IV, oral vancomycin and po dificid. Discussed with dr english who states Dr Henderson will be back on wednesday and then patient might be discharged. 2. Diverticulitis: H/o Diverticulitis, CT Abd/Pelvis w/ wall thickening consistent w/ diverticulitis, possibly compounded by C Diff colitis, in light of recurrent disease will continue w/ IV Zosyn for Diverticulitis. 08/29 discontinue IV Zosyn. Antibiotics as per ID. 08/31 continue antibiotics as per ID. 3. SHAVONNE: Creatinine 1.59, previously 1.20 on 08/09/17, IVF for hydration, repeat labs in am 08/29 repeat labs shows a worsening creatinine of 1.77. Continue normal saline and continue to monitor BUN and creatinine. Avoid nephrotoxins, monitor strict I's and O's. 08/31 acute kidney injury likely secondary to prerenal azotemia secondary to dehydration due to diarrhea. Creatinine back down to normal and trending down. Discontinue IV fluids. 4. Alcohol Abuse: +mild tremor, CIWA, Seizure Precautions, MVT/Thiamine/ Folate replacement. Tremors much improved. Continue CIWA protocol. 5. DVT Prophylaxis: SCD/Teds 6. Dystonic reaction: The patient has diverticulosis in the neck. The patient has been administered Robaxin and oral Valium without improvement. I will Rx trihexyphenidyl 2 mg p.o. every 12 hours. Patient also with increased pain in the neck with tachycardia and elevated blood pressure despite of administration of IV morphine sulfate. I will give 1 dose of IV Dilaudid as well. 09/02 Neck pain still present. Patient insisting he has h/o neck surgery. Will order MRI neck. Continue Robaxin and trihexyphenidyl. 09/03 MRI of the neck shows mild degenerative changes. Patient neck pain improving however neck still stiff. DC Robaxin and trihexyphenidyl and start Carbidopa Levodopa and Baclofen. 7. Right lower extremity weakness/ psin Check lumbar spine MRI to r/o myelopathy. Consult neurology. suspect possible drug seeking behavior. DC IV opiates and start oral percocet. 6. Social work for d/c planning as needed. Discharge Planning Continue to monitor the medical floor. Pending ID clearance. Will need outpatient IV antibiotics set up. Case management to assist. DC pending improvement of neck pain and dystonic reaction. MRI L spine and neurology consultation. Toby Garcia MD September 03, 2017 12:35
--- NOTE | 2017-09-03 13:08 | HHI.IDPN ---
Subjective Subjective Remarks ID COVERAGE is a 62-year-old male with past medical history significant for hypertension, diverticulitis, GERD, history of pancreatitis secondary to alcohol binge, chronic renal insufficiency and recurrent Clostridium difficile infection who is well-known to our service from previous hospitalization for treatment of recurrent C. difficile who presents to [facility] with complaints of acute onset of nausea, vomiting, abdominal pain and watery diarrhea 1 day. Patient states that last night he developed acute onset of his symptoms with ongoing diarrhea occurring every half hour and progressive abdominal pain. He denies any fever or chills at home. Patient has a lengthy history of recurrent C. difficile infections starting approximately 3 years ago after he was given IV Levaquin and oral Bactrim. Patient has had multiple hospitalizations for recurrent infection treated with oral vancomycin. Patient has an allergy to Flagyl. Patient's most recent admission was on 08/06/17 at that time his C. difficile study was actually negative and he was treated with po Dificid and Vancomycin discharged home on vancomycin taper. Patient follows with Dr. Kennedy as outpatient and is scheduled to undergo fecal transplant 2017. Patient denies any antibiotic use since his last hospitalization. He denies any known exposure to C. difficile. He and his girlfriend live together and she has contracted C. difficile twice the last time being a year and a half ago. Patient states he is very diligent about using Clorox bleach in the home in attempt to prevent recurrence. Patient reports that he has had for endoscopic procedures in the past 3 years and most recently had a flexible sigmoidoscopy 04/22/[address] Walsh and was found to have diverticulosis, colon polyp and nonbleeding hemorrhoids with pathology revealing slightly thickened basement membrane insufficient for definitive diagnosis of collagenous colitis. In the ED, patient presented with sepsis with white count of 13.7, tachycardia with heart rate of 128 and source of C. difficile infection. Lactic acid 0.9, Anion gap of 16. CT of abdomen pelvis revealed diffuse thickening involving the proximal and mid sigmoid colon suggestive of acute diverticulitis. Patient was started on oral Dificid and IV Zosyn. Infectious disease consultation has been requested for evaluation and management of recurrent C. difficile infection. Patient seen and examined. He is afebrile. His white count is trending down. Patient states he continues to have copious amounts of watery diarrhea occurring every half hour. He complains of nausea and has vomited twice since admission and believes he is having a reaction to Zosyn. He continues to have significant diffuse abdominal pain. He denies any complaints of fever or chills. He denies any chest pain or shortness of breath. He denies any complaints of dysuria. Notes reviewed Still with neck pain D/W Dr Colvin MRI c spine - multilevel disc disease Poor po intake No abdominal pain No N/V Labs reviewed Imaging studies reviewed Cultures reviewed Antibiotics IV Ertapenem PO Vancomycin Dificid Current Medications Medications (Trade) Dose Ordered Sig/Quin Route Start Time Stop Time Status Last Admin (NS Flush) 2 ml UNSCH PRN IV FLUSH 08/28/17 18:30 09/03/17 04:13 (NS Flush) 2 ml BID IV FLUSH 08/28/17 21:00 09/03/17 09:00 (Tylenol) 650 mg Q4H PRN PO 08/28/17 18:30 (Zofran Inj) 4 mg Q6H PRN IVP 08/28/17 18:30 08/31/17 12:01 (Narcan Inj) 0.4 mg UNSCH PRN IV PUSH 08/28/17 18:30 (Milk Of Magnesia Liq) 30 ml Q12H PRN PO 08/28/17 18:30 (Senokot) 17.2 mg Q12H PRN PO 08/28/17 18:30 (Dulcolax Supp) 10 mg DAILY PRN RECTAL 08/28/17 18:30 (Lactulose Liq) 30 ml DAILY PRN PO 08/28/17 18:30 (Xanax) 0.5 mg Q12HR PRN PO 08/28/17 18:30 09/02/17 22:04 (Norvasc) 5 mg DAILY PO 08/29/17 09:00 09/03/17 09:05 (Colestipol Pkt) 5 gm Q12HR PO 08/28/17 21:00 09/02/17 09:00 (Lactinex Pkt) 1 gm TID PO 08/29/17 09:00 09/02/17 09:00 (Prinivil) 20 mg DAILY PO 08/29/17 09:00 09/03/17 09:06 (Vitamin B1) 100 mg DAILY PO 08/28/17 21:00 09/03/17 09:05 (Romazicon Inj) 0.2 mg Q1M PRN IV PUSH 08/28/17 19:30 (Ativan) 1 mg Q4H PRN PO 08/28/17 19:30 (Ativan Inj) 1 mg Q4H PRN IV PUSH 08/28/17 19:30 (Ativan) 2 mg Q2H PRN PO 08/28/17 19:30 (Ativan Inj) 2 mg Q2H PRN IV PUSH 08/28/17 19:30 (Ativan Inj) 2 mg Q1H PRN IV PUSH 08/28/17 19:30 (Ativan Inj) 2 mg Q15M PRN IV PUSH 08/28/17 19:30 (Haldol Inj) 2 mg Q15M PRN IM 08/28/17 19:30 (Dificid) 200 mg BID PO 08/28/17 21:00 09/07/17 20:59 09/03/17 09:06 (VANCOMYCIN for oral use only) 250 mg Q6HR PO 08/29/17 12:00 09/03/17 12:00 (Protonix) 40 mg DAILY PO 08/29/17 19:30 09/03/17 09:05 (Mag-Al Plus Susp Liq) 30 ml Q6H PRN PO 08/29/17 19:30 Ertapenem 1000 mg/ Sodium Chloride 100 ml @ 200 mls/hr Q24H IV 08/29/17 22:00 09/02/17 20:57 (Percocet 5-325 Mg) 1 tab Q4H PRN PO 09/03/17 10:30 (Percocet 5-325 Mg) 2 tab Q4H PRN PO 09/03/17 10:30 09/03/17 12:14 (Sinemet 25-100 Mg) 1 tab Q8HR PO 09/03/17 14:00 (Lioresal) 10 mg Q8HR PO 09/03/17 14:00 09/03/17 12:12 Lines PIV with no e/o infection Past Medical History Recurrent C difficile infection Hypertension History of diverticulitis Chronic renal insufficiency GERD Arthritis History of pancreatitis after binge drinking following his divorce History of Herpes zoster Hx of possible small sigmoid abscess with CT abd/pelvis 07/14/17 showing 2.3 x 1.5 cm rim-enhancing fluid collection the distal sigmoid colonic wall, possibly a small abscess of other significant inflammatory change is identified in the surrounding soft tissues. Hx of Klebsiella Pneumoniae bacteremia Allergies: Coded Allergies: codeine (Verified Allergy, Severe, RASH, 08/28/17) ibuprofen (Verified Allergy, Severe, Swelling, 08/28/17) of eyes levofloxacin (Verified Allergy, Severe, ACHILLES TENDON PROBLEM, 08/28/17) metronidazole (Verified Allergy, Severe, Nausea/Vomiting, 08/28/17) Objective . Vital Signs Date Time Temp Pulse Resp B/P (MAP) Pulse Ox O2 Delivery O2 Flow Rate FiO2 09/03/17 12:00 97.3 99 16 125/77 (93) 99 09/03/17 08:00 99.3 103 18 124/77 (93) 97 09/03/17 00:00 98.6 95 18 122/78 (93) 95 09/02/17 20:00 98.9 105 18 141/82 (101) 96 09/02/17 16:00 98.0 99 16 138/87 (104) 98 Imaging Last Impressions Abdomen/Pelvis CT 08/28/17 0000 Signed Impressions: Service Date/Time: Monday, August 28, 2017 17:24 - CONCLUSION: 1. Diffuse thickening involving the wall of the proximal and mid sigmoid colon consistent with probable acute diverticulitis. Clinical correlation is recommended. 2. Mild chronic compression deformity involving T11. 3. Stable bilateral renal cysts. 4. Degenerative changes and scoliosis of lumbar spine. Nilesh Simms MD Physical Exam GENERAL: Awake and alert. NAD SKIN: No rashes, ecchymoses or lesions. Cool and dry. HEAD: Atraumatic. Normocephalic. No temporal or scalp tenderness. EYES: Pupils equal round and reactive. Extraocular motions intact. No scleral icterus. No injection or drainage. ENT: Nose without bleeding or purulent drainage. Airway patent. No oral lesions. NECK: Trachea midline. No lymphadenopathy. Supple, nontender, no meningeal signs. No swelling or redness noted in posterior neck CARDIOVASCULAR: Regular rate and rhythm without murmurs, gallops, or rubs. RESPIRATORY: Clear to auscultation. Breath sounds equal bilaterally. No wheezes , rales, or rhonchi. GASTROINTESTINAL: Abdomen soft, nondistended. min tenderness. No guarding. MUSCULOSKELETAL: Extremities without clubbing, cyanosis, or edema. No calf tenderness. NEUROLOGICAL: Non-focal PSYCHIATRIC: Appropriate mood and affect. Normal judgment and insight. PIV with no e/o infection Assessment & Plan Remarks Sepsis with leukocytosis, tachycardia and suspected source of C. difficile positive infection, better C. difficile diarrhea/colitis ?acute diverticulitis -CT abd/pelvis reveals diffuse thickening involving the proximal and mid sigmoid colon suggestive of acute diverticulitis Leukocytosis secondary to C. difficile infection, white count trending down Acute on chronic renal insufficiency, suspect secondary to dehydration/volume depletion, worsening History of recurrent C. difficile -Patient follows with Dr. Kennedy as outpatient and is scheduled to undergo fecal transplant 09/14/17 Hx of diverticulitis ?sigmoid abscess per CT abd/pelvis 07/14/17 Hx of Klebsiella Pneumoniae bacteremia 2017 HTN Hx of alcohol abuse and pancreatitis Marijuana use Neck pain, ?muscular Recs Continue Ertapenem IV Continue Oral vanco and also on po Dificid Will need IV abx on discharge Monitor progress Dr Fuentes available if needed this Dr Henderson [facility] 03, 2017 13:07
[2017-09-03] MEDS: CARBIDOPA/LEVODOPA 25 MG/100 MG TAB PO SCH ×2 (14:00→22:12)
[2017-09-03] MEDS ORDERED: CYCLOBENZAPRINE HCL 10 MG TAB PO SCH (14:00)
--- NOTE | 2017-09-03 14:01 | MB ---
cc: Pily Vasquez MD DATE: 09/03/2017 DATE OF : 1955 AGE: 62 REASON FOR CONSULTATION: Cervical dystonia. HISTORY OF PRESENT ILLNESS: This is a 62-year-old man with a history of hypertension, diverticulitis, reflux, pancreatitis due to alcohol binging, chronic renal insufficiency and recent Clostridium difficile. He came in with nausea, vomiting, diarrhea, abdominal pain. He is being followed by GI and with ID. I am to assess him for cervicogenic pain. He states that he had C-spine surgery in the without fusion and yesterday woke up with severe cervicogenic pain, unable to move his neck, some thigh pain as well on the right. He was given apparently I think overnight some baclofen. His neck is a little bit better. He does not have any burning or numbness or tingling. He even had referred pain into his clavicles, he stated. Currently, he has been placed on some baclofen 10 mg every 8 hours. PHYSICAL EXAMINATION: VITAL SIGNS: Temperature is 97.3, pulse 99, respiratory rate 16, blood pressure 125/77. NECK: Supple. I do not appreciate any bruits. HEART: Regular. NEUROLOGICAL EXAMINATION: He is awake and alert. He is oriented, fluent. His pupils are reactive. Face symmetrical. Tongue midline. Motor-solares, he has no weakness of the upper extremities. No Shruthi sign. 2+ reflexes, trace to 1+ in the lower extremities. He has trouble lifting his right leg up, but he can bend it at the knee. He has good ankle strength, EHL strength thigh. Thigh strength is about 4/5. He has tenderness over his right quadriceps muscle to palpation. Toes he withdraws. Gait is not assessed at this time. ALLERGIES: HE IS ALLERGIC TO CODEINE, IBUPROFEN, LEVAQUIN that caused a tendon rupture. METRONIDAZOLE caused nausea and vomiting. Per chart. IMAGING STUDIES: He had an MRI of his C-spine that shows multiple level degenerative changes, more starting at C4-5 with disk protrusion, C5-6 as well, some slight degree of concentric canal stenosis, C6-C7 disk protrusion. C7-T1 was normal, but no acute bony findings. No abnormality in the spinal cord. IMPRESSION: Cervicogenic pain. He certainly may have had a spasm, some spasm in the right leg. PLAN: We will continue with the baclofen for the interim, 10 mg every 8 hours. Pain medicines p.r.n., either [place] or Percocet is fine p.r.n. Also maintained his electrolytes at normal levels. Consider, if there is no contraindication, putting him on some low dose steroids such as a Medrol Dosepak for 1 week if okay with the primary team and with Infectious Disease. If that does not help, then other options would be keeping him on the low dose baclofen, but adding some diazepam 2.5 mg b.i.d. p.r.n. Otherwise, no other testing at this point in time is indicated. Continue current care as outlined. MD FABI Hurtado/CHIOMA , 01:24 PM , 01:59 PM
[2017-09-03 16:00] VITALS: BP 120/68; PULSE 98; RESP 16; TEMP 98.4; O2SAT 99
[2017-09-03 20:00] VITALS: BP 125/78; PULSE 91; RESP 20; TEMP 97.6; O2SAT 98
--- NOTE | 2017-09-03 20:41 | RADRPT ---
EXAM DATE/TIME: 09/03/2017 18:09 [facility] COMPARISON: No previous studies available for comparison. INDICATIONS : Inability to ambulate. Resolved. MEDICAL HISTORY : Hypertension. SURGICAL HISTORY : Discectomy, lumbar. Femoral precious, achilles tendon repair. ENCOUNTER: Initial ACUITY: 1 day PAIN SCORE: 5/10 LOCATION: Parasp[facility] TECHNIQUE: Multiplanar multisequence MRI of the lumbar spine was performed without contrast. FINDINGS: The most caudal appearing lumbar vertebra is numbered as L5. VERTEBRAE: Modic type II endplate changes at L4-L5. Marrow signal is otherwise homogeneous. Normal alignment. CONUS: Normal level and configuration. Small left cortical renal cysts. T12-L1: The thecal sac has a normal diameter. No evidence of disc bulge or protrusion. The neural foramina are patent bilaterally. L1-L2: The thecal sac has a normal diameter. No evidence of disc bulge or protrusion. The neural foramina are patent bilaterally. L2-L3: Mild disc desiccation with minimal loss of height. A mild broad-based disc bulge. Lateral recesses, c entral canal, and neural foramen remain patent. Facet joints are unremarkable. L3-L4: There is a mild left posterior lateral disc bulge. No abutment of the exiting nerve root. It does mil dly narrow the inferior portion of the neural foramen. Lateral recesses and central canal are patent. Mild ligamentum flavum hypertrophy of the facets. L4-L5: Disc desiccation and mild disc space narrowing with a minimal broad-based bulge. Mild bony hypertroph y of the facets. Lateral recesses, central canal, and neural foramen are patent. Modic type II endpla te changes are noted. L5-S1: Mild disc desiccation and mild disc space narrowing. No blood or protrusion. Mild ligamentum flavum h ypertrophy of the facets. Neural foramina and central canal are patent. CONCLUSION: 1. No acute abnormality. 2. Mild degenerative changes without neural impingement or central canal stenosis. José Miguel Hussein Jr., MD on September 03, 2017 at 20:35 Board Certified Radiologist. This report was verified electronically.
[2017-09-03] MEDS ORDERED: TRIHEXYPHENIDYL HCL 2 MG TAB PO SCH (21:00)
[2017-09-03] MEDS: ERTAPENEM 1,000 MG/NS 100 ML IV SCH ×2 (22:03)
[2017-09-03] MEDS: ALPRAZolam 0.5 MG TAB PO PRN (22:12)
[2017-09-04] VITALS: BP 109/67; PULSE 90; RESP 20; TEMP 98; O2SAT 98
[2017-09-04] MEDS: BACLOFEN 10 MG TAB PO SCH ×3 (06:00→20:30)
[2017-09-04] MEDS: VANCOMYCIN 500 MG VIAL (FOR ORAL USE ONLY) PO SCH ×4 (06:00→23:41)
[2017-09-04] MEDS: CARBIDOPA/LEVODOPA 25 MG/100 MG TAB PO SCH ×3 (06:00→20:30)
[2017-09-04] MEDS: oxyCODONE/ACETAMINOPHEN 5 MG/325 MG TAB PO PRN ×4 (06:10→20:47)
[2017-09-04 08:00] VITALS: BP 92/56; PULSE 80; RESP 17; TEMP 97.7; O2SAT 98
[2017-09-04] MEDS: amLODIPine BESYLATE 5 MG TAB PO SCH (08:40)
[2017-09-04] MEDS: SODIUM CHLORIDE 0.9% FLUSH 10 ML FLUSH IV FLUSH SCH ×2 (08:41→20:31)
[2017-09-04] MEDS: LISINOPRIL 20 MG TAB PO SCH (08:41)
[2017-09-04] MEDS: PANTOPRAZOLE SOD 40 MG DELAYED RELEASE TAB PO SCH (08:41)
[2017-09-04] MEDS: THIAMINE HCL 100 MG TAB PO SCH (08:41)
[2017-09-04] MEDS: FIDAXOMICIN 200 MG TAB PO SCH ×2 (08:41→20:29)
[2017-09-04] MEDS: LACTOBACILLUS ACIDOPHILUS 1 GM PACKET PO SCH ×3 (08:41→16:44)
[2017-09-04] MEDS: COLESTIPOL HCL 5 GM PACKET PO SCH ×2 (08:43→20:31)
[2017-09-04] MEDS: ALPRAZolam 0.5 MG TAB PO PRN ×2 (10:37→23:44)
[2017-09-04 12:00] VITALS: BP 97/60; PULSE 74; RESP 17; TEMP 97.1; O2SAT 100
--- NOTE | 2017-09-04 12:09 | HHI.PR ---
Subjective Remarks Diarrhea is much improved. The patient complains of pain in the right lower extremity associated with weakness as per patient. States his neck still hurts and has trouble moving it up, down or to the sides, however is able to do it now. BP noted to be low. Objective Vitals Vital Signs Date Time Temp Pulse Resp B/P (MAP) Pulse Ox O2 Delivery O2 Flow Rate FiO2 09/04/17 08:00 97.7 80 17 92/56 (68) 98 09/04/17 00:00 98.0 90 20 109/67 (81) 98 09/03/17 20:00 97.6 91 20 125/78 (94) 98 09/03/17 16:00 98.4 98 16 120/68 (85) 99 I/O 09/03/17 09/03/17 09/03/17 09/04/17 09/04/17 09/04/17 07:00 15:00 23:00 07:00 15:00 23:00 Intake Total 100 ml 2000 ml 240 ml Balance 100 ml 2000 ml 240 ml Intake Oral 2000 ml 240 ml IV Total 100 ml # Voids 2 5 5 # Bowel Movements 3 1 Result Diagram: 08/31/17 0817 08/31/17 0817 Imaging Last 72 hours Impressions Lumbar Spine MRI 09/03/17 0000 Signed Impressions: Service Date/Time: Sunday, September 03, 2017 18:09 - CONCLUSION: 1. No acute abnormality. 2. Mild degenerative changes without neural impingement or central canal stenosis. José Miguel Hussein Jr., MD Cervical Spine MRI 09/02/17 0000 Signed Impressions: Service Date/Time: August 16:36 - CONCLUSION: Mild multilevel disc disease changes. No acute bony findings. Alonzo Gates MD Objective Remarks GENERAL: Pleasant middle-aged white male in no acute distress. Mildly tremulous. HEENT: PERRLA, EOMI. No scleral icterus or conjunctival pallor. No lid lag or facial droop. CARDIOVASCULAR: Regular rate and rhythm. No obvious murmurs to auscultation. No chest tenderness to palpation. RESPIRATORY: No obvious rhonchi or wheezing. Clear to auscultation. Breath sounds equal bilaterally. GASTROINTESTINAL: Abdomen soft, mild diffuse tenderness to palpation, moderately distended. BS normal. MUSCULOSKELETAL: Extremities without clubbing, cyanosis, or edema. No obvious deformities. NEUROLOGICAL: Awake, alert and oriented x4. No focal neurologic deficits. Moving both upper and lower extremities spontaneously. A/P Problem List: (1) C. difficile colitis ICD Code: A04.7 - Enterocolitis due to Clostridium difficile Status: Acute (2) Diverticulitis ICD Code: K57.92 - Diverticulitis of intestine, part unspecified, without perforation or abscess without bleeding (3) SHAVONNE (acute kidney injury) ICD Code: N17.9 - Acute kidney failure, unspecified Status: Resolved (4) Alcohol abuse ICD Code: F10.10 - Alcohol abuse, uncomplicated Status: Chronic (5) Hypotension ICD Code: I95.9 - Hypotension, unspecified Plan: Likely due to dehydration. There are no fevers or chills. Blood cell count back down to normal. I will give a bolus of IV normal saline 500 mL's. 1 Hold antihypertensive medications. Assessment and Plan 1. C Diff Colitis: Recurrent. Following w/ Dr. Kennedy as outpatient, on multiple courses of Vanc PO in light of ALLERGY to Flagyl, currently pending fecal transplant, now w/ recurrent abdominal pain and diarrhea. C Diff +. Will start Dificid 200mg bid. Consult Dr. Kennedy for further evaluation, 08/29 continue p.o. vancomycin and Dificid. Discussed the case with Dr. Henderson from infectious disease. Antibiotics per ID. 08/30 diarrhea is improving. Continue IV ertapenem, p.o. Dificid and oral vancomycin. Antibiotics as per ID. Appreciate GI consultation recommendations. Diet as tolerated. Outpatient follow-up with Dr. Kennedy. The patient is in the process of donor screening for stool transplant which will be done once diverticulitis is resolved. 09/03 Continue antibiotics as per ID. Continue ertapenem IV, oral vancomycin and po dificid. Discussed with dr english who states Dr Henderson will be back on wednesday and then patient might be discharged. 2. Diverticulitis: H/o Diverticulitis, CT Abd/Pelvis w/ wall thickening consistent w/ diverticulitis, possibly compounded by C Diff colitis, in light of recurrent disease will continue w/ IV Zosyn for Diverticulitis. 08/29 discontinue IV Zosyn. Antibiotics as per ID. 08/31 continue antibiotics as per ID. 3. SHAVONNE: Creatinine 1.59, previously 1.20 on 08/09/17, IVF for hydration, repeat labs in am 08/29 repeat labs shows a worsening creatinine of 1.77. Continue normal saline and continue to monitor BUN and creatinine. Avoid nephrotoxins, monitor strict I's and O's. 08/31 acute kidney injury likely secondary to prerenal azotemia secondary to dehydration due to diarrhea. Creatinine back down to normal and trending down. Discontinue IV fluids. 4. Alcohol Abuse: +mild tremor, CIWA, Seizure Precautions, MVT/Thiamine/ Folate replacement. Tremors much improved. Continue CIWA protocol. 5. DVT Prophylaxis: SCD/Teds 6. Dystonic reaction: The patient has diverticulosis in the neck. The patient has been administered Robaxin and oral Valium without improvement. I will Rx trihexyphenidyl 2 mg p.o. every 12 hours. Patient also with increased pain in the neck with tachycardia and elevated blood pressure despite of administration of IV morphine sulfate. I will give 1 dose of IV Dilaudid as well. 09/02 Neck pain still present. Patient insisting he has h/o neck surgery. Will order MRI neck. Continue Robaxin and trihexyphenidyl. 09/03 MRI of the neck shows mild degenerative changes. Patient neck pain improving however neck still stiff. DC Robaxin and trihexyphenidyl and start Carbidopa Levodopa and Baclofen. 09/04 dystonic reaction much improved. Continue baclofen and carbidopa levodopa. 7. Right lower extremity weakness/ pain Check lumbar spine MRI to r/o myelopathy. Consult neurology. suspect possible drug seeking behavior. DC IV opiates and start oral percocet. 09/04 lumbar spine MRI shows only mild degenerative changes. No spinal cord compression. Appreciate neurology recommendations. 6. Social work for d/c planning as needed. Discharge Planning Continue to monitor the medical floor. Pending ID clearance. Will need outpatient IV antibiotics set up. Case management to assist. Toby Garcia MD September 04, 2017 12:09
[2017-09-04] MEDS ORDERED: SODIUM CHLORID 0.9% 500 ML INJ 500 ML IV ONE (12:15)
[2017-09-04 16:00] VITALS: BP 102/62; PULSE 78; RESP 17; TEMP 97.8; O2SAT 99
[2017-09-04 20:00] VITALS: BP 110/73; PULSE 84; RESP 20; TEMP 97.5; O2SAT 99
[2017-09-04] MEDS: ERTAPENEM 1,000 MG/NS 100 ML IV SCH ×2 (20:30)
[2017-09-05] VITALS: BP 109/67; PULSE 74; RESP 18; TEMP 98.1; O2SAT 97
[2017-09-05] MEDS: BACLOFEN 10 MG TAB PO SCH (05:36)
[2017-09-05] MEDS: CARBIDOPA/LEVODOPA 25 MG/100 MG TAB PO SCH (05:36)
[2017-09-05] MEDS: oxyCODONE/ACETAMINOPHEN 5 MG/325 MG TAB PO PRN ×4 (05:37→23:02)
[2017-09-05] MEDS: VANCOMYCIN 500 MG VIAL (FOR ORAL USE ONLY) PO SCH ×4 (05:38→23:01)
[2017-09-05 07:28] LABS: HEMATOCRIT 26.5 % (39.0-51.0); HEMOGLOBIN 8.8 GM/DL (13.0-17.0); MEAN CORPUSCULAR HEMOGLOBIN 27.6 PG (27.0-34.0); MEAN CORPUSCULAR HGB CONC 33.3 % (32.0-36.0); PLATELET COUNT 338 TH/MM3 (150-450); RED BLOOD COUNT 3.19 MIL/MM3 (4.50-5.90); RED CELL DISTRIBUTION WIDTH 17.9 % (11.6-17.2); WHITE BLOOD COUNT 7.8 TH/MM3 (4.0-11.0)
[2017-09-05 07:47] LABS: BICARBONATE 19.9 MEQ/L (21.0-32.0); CALCIUM 9.1 MG/DL (8.5-10.1); CREATININE 1.43 MG/DL (0.60-1.30); MAGNESIUM 1.3 MG/DL (1.5-2.5); PHOSPHORUS 4.1 MG/DL (2.5-4.9)
[2017-09-05 08:00] VITALS: BP 90/59; PULSE 68; RESP 17; TEMP 97.6; O2SAT 98
[2017-09-05] MEDS: FIDAXOMICIN 200 MG TAB PO SCH ×2 (08:40→20:11)
[2017-09-05] MEDS: PANTOPRAZOLE SOD 40 MG DELAYED RELEASE TAB PO SCH (08:40)
[2017-09-05] MEDS: LACTOBACILLUS ACIDOPHILUS 1 GM PACKET PO SCH ×3 (08:40→16:44)
[2017-09-05] MEDS: LISINOPRIL 20 MG TAB PO SCH (08:40)
[2017-09-05] MEDS: COLESTIPOL HCL 5 GM PACKET PO SCH ×2 (08:41→20:11)
[2017-09-05] MEDS: SODIUM CHLORIDE 0.9% FLUSH 10 ML FLUSH IV FLUSH SCH ×2 (08:41→20:12)
[2017-09-05] MEDS: SODIUM CHLOR 0.9% 1000 ML INJ 1,000 ML IV SCH ×2 (09:45→23:00)
[2017-09-05 12:00] VITALS: BP 119/73; PULSE 75; RESP 17; TEMP 97.2; O2SAT 98
[2017-09-05 16:00] VITALS: BP 110/64; PULSE 80; RESP 17; TEMP 97.5; O2SAT 95
[2017-09-05 20:00] VITALS: BP 129/68; PULSE 84; RESP 20; TEMP 97.2; O2SAT 100
[2017-09-05] MEDS: ERTAPENEM 1,000 MG/NS 100 ML IV SCH ×2 (20:11)
[2017-09-06] VITALS: BP 137/78; PULSE 81; RESP 20; TEMP 97.5; O2SAT 100
[2017-09-06] MEDS: oxyCODONE/ACETAMINOPHEN 5 MG/325 MG TAB PO PRN ×2 (03:18→09:44)
[2017-09-06] MEDS: VANCOMYCIN 500 MG VIAL (FOR ORAL USE ONLY) PO SCH ×2 (05:00→13:48)
[2017-09-06] MEDS: SODIUM CHLOR 0.9% 1000 ML INJ 1,000 ML IV SCH ×2 (05:02→09:56)
[2017-09-06 07:40] LABS: BICARBONATE 19.2 MEQ/L (21.0-32.0); CALCIUM 8.7 MG/DL (8.5-10.1); CREATININE 1.2 MG/DL (0.60-1.30)
[2017-09-06 08:00] VITALS: BP 132/69; PULSE 66; RESP 16; TEMP 97.5; O2SAT 99
[2017-09-06] MEDS: COLESTIPOL HCL 5 GM PACKET PO SCH (09:00)
[2017-09-06] MEDS: PANTOPRAZOLE SOD 40 MG DELAYED RELEASE TAB PO SCH (09:44)
[2017-09-06] MEDS: LACTOBACILLUS ACIDOPHILUS 1 GM PACKET PO SCH ×2 (09:44→13:00)
[2017-09-06] MEDS: LISINOPRIL 20 MG TAB PO SCH (09:45)
[2017-09-06] MEDS: FIDAXOMICIN 200 MG TAB PO SCH (09:45)
[2017-09-06] MEDS: SODIUM CHLORIDE 0.9% FLUSH 10 ML FLUSH IV FLUSH SCH (09:45)
[2017-09-06] MEDS: ALPRAZolam 0.5 MG TAB PO PRN (09:54)
[2017-09-06 12:00] VITALS: BP 128/71; PULSE 87; RESP 16; TEMP 97; O2SAT 99
[2017-09-06] MEDS ORDERED: VANC250C2 PO (14:15)
--- NOTE | 2017-09-06 14:17 | HHI.DCPOC ---
Discharge Care Plan Diagnosis: (1) Hypotension (2) C. difficile colitis (3) SHAVONNE (acute kidney injury) (4) Diverticulitis (5) Alcohol abuse (6) Sepsis (7) Diverticulitis (8) Acute kidney injury (9) Recurrent Clostridium difficile diarrhea (10) Cervical dystonia Goals to Promote Your Health * To prevent worsening of your condition and complications * To maintain your health at the optimal level Directions to Meet Your Goals Take your medications as prescribed Follow your dietary instruction Follow activity as directed Keep your appointments as scheduled Take your immunizations and boosters as scheduled If your symptoms worsen call your PCP, if no PCP go to Urgent Care Center or Emergency Room Smoking is Dangerous to Your Health. Avoid second hand smoke Call the 24-hour hour crisis hotline for domestic abuse at Toby Garcia MD September 06, 2017 14:16
--- NOTE | 2017-09-06 14:20 | HHI.DS ---
Discharge Summary Admission Date August 28, 2017 at 18:17 Discharge Date: September 06, 2017 Admitting Diagnosis Diverticulitis (1) C. difficile colitis ICD Code: A04.7 - Enterocolitis due to Clostridium difficile Status: Acute (2) Diverticulitis ICD Code: K57.92 - Diverticulitis of intestine, part unspecified, without perforation or abscess without bleeding (3) SHAVONNE (acute kidney injury) ICD Code: N17.9 - Acute kidney failure, unspecified Status: Resolved (4) Alcohol abuse ICD Code: F10.10 - Alcohol abuse, uncomplicated Status: Chronic (5) Hypotension ICD Code: I95.9 - Hypotension, unspecified Brief History - From Admission This is a 62-year-old male with a PMH of Recurrent C. difficile since 2016, Diverticulitis, and Alcohol Abuse who presented to the ER w/ complaints of diarrhea. Multiple admissions in the past w/ recurrent episodes of C. Diff, s/ p multiple treatments w/ Vanc PO due to ALLERGY to Flagyl. Most recent admit -08/09/17, C Diff negative 08/06/17, dc'd home on Vanc taper w/ plans to follow up w/ Dr. Kennedy as outpatient for Fecal Transplant. Pt states he was seen by Dr. Kennedy on Wednesday, is currently in the process of obtaining a donor for the fecal transplant, has follow up appt w/ Dr. Kennedy scheduled for 09/14/17 per patient, however returns now w/ ongoing diarrhea and c/o abdominal pain starting last night. States pain is intermittent, cramping, moderate 7/10, non- radiating, no alleviating factors. Denies nausea, vomiting or fever. On arrival, BP 143/95, HR 109, O2 sat 100% RA, Afebrile. WBC 13.7. Creatinine 1.59, previously 1.20 on 08/09/2017. C. difficile positive CT Abdomen/Pelvis with diffuse thickening involving the wall proximal and mid sigmoid colon consistent with probable acute diverticulitis. S/p Zosyn in ER. CBC/BMP: 09/05/17 0617 09/06/17 0639 Significant Findings Laboratory Tests Test 09/05/17 06:17 09/06/17 06:39 Red Blood Count 3.19 MIL/MM3 (4.50-5.90) Hemoglobin 8.8 GM/DL (13.0-17.0) Hematocrit 26.5 % (39.0-51.0) Red Cell Distribution Width 17.9 % (11.6-17.2) Blood Urea Nitrogen 20 MG/DL (7-18) Creatinine 1.43 MG/DL (0.60-1.30) Magnesium Level 1.3 MG/DL (1.5-2.5) Sodium Level 135 MEQ/L (136-145) Carbon Dioxide Level 19.9 MEQ/L (21.0-32.0) 19.2 MEQ/L (21.0-32.0) Estimat Glomerular Filtration Rate 50 ML/MIN (>89) 61 ML/MIN (>89) Chloride Level 114 MEQ/L (98-107) PE at Discharge GENERAL: Pleasant middle-aged white male in no acute distress. Mildly tremulous. HEENT: PERRLA, EOMI. No scleral icterus or conjunctival pallor. No lid lag or facial droop. CARDIOVASCULAR: Regular rate and rhythm. No obvious murmurs to auscultation. No chest tenderness to palpation. RESPIRATORY: No obvious rhonchi or wheezing. Clear to auscultation. Breath sounds equal bilaterally. GASTROINTESTINAL: Abdomen soft, mild diffuse tenderness to palpation, moderately distended. BS normal. MUSCULOSKELETAL: Extremities without clubbing, cyanosis, or edema. No obvious deformities. NEUROLOGICAL: Awake, alert and oriented x4. No focal neurologic deficits. Moving both upper and lower extremities spontaneously. Pt Condition on Discharge: Stable Discharge Disposition: Discharge Home Discharge Time: <= 30 minutes Discharge Instructions DIET: Follow Instructions for: As Tolerated, No Restrictions Activities you can perform: Regular-No Restrictions Follow up Referrals: Infectious Disease - 1 Week with Miguel Kennedy MD New Medications: Vancomycin (Vancomycin) 250 Mg Cap 250 MG PO DIRECTED for Infection, #70 CAP 0 Refills Take 1 tablet of 250 mg p.o. 4 times daily for 1 week then Take 1 tablet of 250 mg p.o. 3 times a day for 1 week then Take 1 tablet of 250 mg p.o. 2 times a day for 1 week then Take 1 tablet once a week for 7 days then stop. Continued Medications: Alprazolam (Xanax) 0.5 Mg Tab 0.5 MG PO Q12HR PRN for ANXIETY, TAB 0 Refills Amlodipine (Amlodipine) 5 Mg Tab 5 MG PO DAILY for Blood Pressure Management, #30 TAB 0 Refills Colestipol (Colestid) 5 Gm Pkt 5 GM PO Q12HR, #14 PACKET 1 packet of granules contains 5 grams of colestipol. Lactobacillus Acidophilus (Floranex) 1 Gm Pkt 1 GM PO TID, #90 PACKET Lisinopril (Lisinopril) 20 Mg Tab 20 MG PO DAILY, #30 TAB 0 Refills Toby Garcia MD September 06, 2017 14:20
--- NOTE | 2017-09-06 15:04 | HHI.IDPN ---
Subjective Subjective Remarks is a 62-year-old male with past medical history significant for hypertension, diverticulitis, GERD, history of pancreatitis secondary to alcohol binge, chronic renal insufficiency and recurrent Clostridium difficile infection who is well-known to our service from previous hospitalization for treatment of recurrent C. difficile who presents to [facility] with complaints of acute onset of nausea, vomiting, abdominal pain and watery diarrhea 1 day. Patient states that last night he developed acute onset of his symptoms with ongoing diarrhea occurring every half hour and progressive abdominal pain. He denies any fever or chills at home. Patient has a lengthy history of recurrent C. difficile infections starting approximately 3 years ago after he was given IV Levaquin and oral Bactrim. Patient has had multiple hospitalizations for recurrent infection treated with oral vancomycin. Patient has an allergy to Flagyl. Patient's most recent admission was on 08/06/17 at that time his C. difficile study was actually negative and he was treated with po Dificid and Vancomycin discharged home on vancomycin taper. Patient follows with Dr. Kennedy as outpatient and is scheduled to undergo fecal transplant 2017. Patient denies any antibiotic use since his last hospitalization. He denies any known exposure to C. difficile. He and his girlfriend live together and she has contracted C. difficile twice the last time being a year and a half ago. Patient states he is very diligent about using Clorox bleach in the home in attempt to prevent recurrence. Patient reports that he has had for endoscopic procedures in the past 3 years and most recently had a flexible sigmoidoscopy 04/22/[address] Walsh and was found to have diverticulosis, colon polyp and nonbleeding hemorrhoids with pathology revealing slightly thickened basement membrane insufficient for definitive diagnosis of collagenous colitis. In the ED, patient presented with sepsis with white count of 13.7, tachycardia with heart rate of 128 and source of C. difficile infection. Lactic acid 0.9, Anion gap of 16. CT of abdomen pelvis revealed diffuse thickening involving the proximal and mid sigmoid colon suggestive of acute diverticulitis. Patient was started on oral Dificid and IV Zosyn. Infectious disease consultation has been requested for evaluation and management of recurrent C. difficile infection. Patient seen and examined. He is afebrile. His white count is trending down. Patient states he continues to have copious amounts of watery diarrhea occurring every half hour. He complains of nausea and has vomited twice since admission and believes he is having a reaction to Zosyn. He continues to have significant diffuse abdominal pain. He denies any complaints of fever or chills. He denies any chest pain or shortness of breath. He denies any complaints of dysuria. Notes reviewed Still with neck pain but much better Wishes to go home. D/W Dr Colvin No abdominal pain No N/V Stool formed. Antibiotics IV Ertapenem PO Vancomycin Dificid Lines PIV with no e/o infection Past Medical History Recurrent C difficile infection Hypertension History of diverticulitis Chronic renal insufficiency GERD Arthritis History of pancreatitis after binge drinking following his divorce History of Herpes zoster Hx of possible small sigmoid abscess with CT abd/pelvis 07/14/17 showing 2.3 x 1.5 cm rim-enhancing fluid collection the distal sigmoid colonic wall, possibly a small abscess of other significant inflammatory change is identified in the surrounding soft tissues. Hx of Klebsiella Pneumoniae bacteremia Allergies: Coded Allergies: codeine (Verified Allergy, Severe, RASH, 08/28/17) ibuprofen (Verified Allergy, Severe, Swelling, 08/28/17) of eyes levofloxacin (Verified Allergy, Severe, ACHILLES TENDON PROBLEM, 08/28/17) metronidazole (Verified Allergy, Severe, Nausea/Vomiting, 08/28/17) Objective . Vital Signs Date Time Temp Pulse Resp B/P (MAP) Pulse Ox O2 Delivery O2 Flow Rate FiO2 09/06/17 12:00 97.0 87 16 128/71 (90) 99 09/06/17 10:52 16 09/06/17 08:00 97.5 66 16 132/69 (90) 99 09/06/17 00:00 97.5 81 20 137/78 (97) 100 09/05/17 20:00 97.2 84 20 129/68 (88) 100 09/05/17 16:00 97.5 80 17 110/64 (79) 95 . Laboratory Tests Test 09/05/17 06:17 White Blood Count 7.8 TH/MM3 Red Blood Count 3.19 MIL/MM3 Hemoglobin 8.8 GM/DL Hematocrit 26.5 % Mean Corpuscular Volume 83.0 FL Mean Corpuscular Hemoglobin 27.6 PG Mean Corpuscular Hemoglobin Concent 33.3 % Red Cell Distribution Width 17.9 % Platelet Count 338 TH/MM3 Mean Platelet Volume 9.0 FL Laboratory Tests Test 09/05/17 06:17 09/06/17 06:39 Blood Urea Nitrogen 20 MG/DL 14 MG/DL Creatinine 1.43 MG/DL 1.20 MG/DL Random Glucose 97 MG/DL 98 MG/DL Calcium Level 9.1 MG/DL 8.7 MG/DL Phosphorus Level 4.1 MG/DL Magnesium Level 1.3 MG/DL Sodium Level 135 MEQ/L 142 MEQ/L Potassium Level 3.9 MEQ/L 4.1 MEQ/L Chloride Level 104 MEQ/L 114 MEQ/L Carbon Dioxide Level 19.9 MEQ/L 19.2 MEQ/L Anion Gap 11 MEQ/L 9 MEQ/L Estimat Glomerular Filtration Rate 50 ML/MIN 61 ML/MIN Imaging Last Impressions Abdomen/Pelvis CT 08/28/17 0000 Signed Impressions: Service Date/Time: Monday, August 28, 2017 17:24 - CONCLUSION: 1. Diffuse thickening involving the wall of the proximal and mid sigmoid colon consistent with probable acute diverticulitis. Clinical correlation is recommended. 2. Mild chronic compression deformity involving T11. 3. Stable bilateral renal cysts. 4. Degenerative changes and scoliosis of lumbar spine. Nilesh Simms MD Physical Exam GENERAL: Awake and alert. NAD SKIN: No rashes, ecchymoses or lesions. Cool and dry. HEAD: Atraumatic. Normocephalic. No temporal or scalp tenderness. EYES: Pupils equal round and reactive. Extraocular motions intact. No scleral icterus. No injection or drainage. ENT: Nose without bleeding or purulent drainage. Airway patent. No oral lesions. NECK: Trachea midline. No lymphadenopathy. Supple, nontender, no meningeal signs. No swelling or redness noted in posterior neck CARDIOVASCULAR: Regular rate and rhythm without murmurs, gallops, or rubs. RESPIRATORY: Clear to auscultation. Breath sounds equal bilaterally. No wheezes , rales, or rhonchi. GASTROINTESTINAL: Abdomen soft, nondistended. min tenderness. No guarding. MUSCULOSKELETAL: Extremities without clubbing, cyanosis, or edema. No calf tenderness. NEUROLOGICAL: Non-focal PSYCHIATRIC: Appropriate mood and affect. Normal judgment and insight. PIV with no e/o infection Assessment & Plan Remarks Sepsis with leukocytosis, tachycardia and suspected source of C. difficile positive infection, better C. difficile diarrhea/colitis ?acute diverticulitis -CT abd/pelvis reveals diffuse thickening involving the proximal and mid sigmoid colon suggestive of acute diverticulitis Leukocytosis secondary to C. difficile infection, white count trending down Acute on chronic renal insufficiency, suspect secondary to dehydration/volume depletion, worsening History of recurrent C. difficile -Patient follows with Dr. Kennedy as outpatient and is scheduled to undergo fecal transplant 09/14/17 Hx of diverticulitis ?sigmoid abscess per CT abd/pelvis 07/14/17 Hx of Klebsiella Pneumoniae bacteremia 2016 HTN Hx of alcohol abuse and pancreatitis Marijuana use Neck pain, ?muscular Recs DC Ertapenem IV DC Dificid Continue Oral vanco taper 250 mg po qid for 7 days then 250 mg tid for 7 days then 250 mg po bid for 7 days then 250 mg po daily for 7 days. Follow up with Dr.Ketul Kennedy for fecal transplant as planned in 2 weeks. dw , RN and patient. Counseled pt about personal and environmental hygiene. Will sign off please call back if any change in clinical condition or questions. Matilda Henderson MD September 06, 2017 15:04
== END 2017-09-06 15:36 | disposition home or self-care (01) | DRG 372 ==
LOC: NEPE 13:56 → NEDA 18:17 → N07A 20:07 → N07B 21:05
PROVIDERS: ADMIT Hospitalist; ATTEND Hospitalist
DX: A04.71 Enterocolitis due to Clostridium difficile, recurrent (principal); N17.9 Acute kidney failure, unspecified; K57.92 Diverticulitis of intestine, part unspecified, without perforation or abscess without bleeding; M19.90 Unspecified osteoarthritis, unspecified site; I12.9 Hypertensive chronic kidney disease with stage 1 through stage 4 chronic kidney disease, or unspecified chronic kidney disease; N18.9 Chronic kidney disease, unspecified; F12.90 Cannabis use, unspecified, uncomplicated; K21.9 Gastro-esophageal reflux disease without esophagitis; D64.9 Anemia, unspecified; F10.10 Alcohol abuse, uncomplicated; Z88.1 Allergy status to other antibiotic agents; Z88.5 Allergy status to narcotic agent; Z88.8 Allergy status to other drugs, medicaments and biological substances
CPT/HCPCS: 72141; 72148; 74177; 80048; 80053; 82272; 82438; 83605; 83690; 83735; 84100; 84302; 84999; 85025; 85027; 87040; 87205; 87207; 87328; 87329; 87425; 87493; 87506; 96360; 96361; J0500; J1170; J1335; J2270; J2405; J2543; J7030; J7040; L0120; Q9967

== ENCOUNTER 2017-10-28 16:22 | Inpatient (IN) ==
[2017-10-28] MEDS ORDERED: Morphine Inj 4 MG/ML Vial IV.PUSH ONE (16:27)
[2017-10-28] MEDS ORDERED: Sod Chloride 0.9% Inj 1,000 ML IV.SIG ONE ×5 (16:27→22:55)
--- NOTE | 2017-10-28 16:35 | ED ---
HPI General Chief Complaint: Abdominal Pain Stated Complaint: Abdominal pain Time Seen by Provider: 10/28/17 16:27 Source: patient Mode of arrival: EMS Limitations: no limitations History of Present Illness HPI narrative: n/v/d/ abd pain crampy and states h/o c diff in recent past MD complaint: abdominal pain Onset (ago): day(s) (2) Pain Consistency: intermittent Location: diffuse Severity: mild Severity scale (1-10): 4 Quality: cramping Radiation: none Migration to: no migration Relieving factors: nothing Exacerbating factors: nothing Associated symptoms: nausea and diarrhea Related Data Home Medications Medication Instructions Recorded Confirmed alprazolam 0.5 mg PO QAM AND QHS 10/29/17 10/31/17 Previous Rx's Medication Instructions Recorded amlodipine [Norvasc] 5 mg PO DAILY #30 tab 11/13/17 fidaxomicin [Dificid] 200 mg PO BID #6 tab 11/13/17 lisinopril 40 mg PO DAILY #30 tab 11/13/17 magnesium chloride [Mag 64] 64 mg PO BID #60 tab 11/13/17 ondansetron [Zofran ODT] 4 mg PO BID PRN #10 tab 11/13/17 vancomycin See Label Instructions .ROUTE 11/13/17 .COMPLEX #31 gm Allergies Allergy/AdvReac Type Severity Reaction Status Date / Time codeine Allergy Severe RASH Verified 08/28/17 14:07 ibuprofen Allergy Severe Swelling Verified 08/28/17 14:07 levofloxacin Allergy Severe ACHILLES Verified 08/28/17 14:07 TENDON PROBLEM metronidazole Allergy Severe Nausea/Vomi Verified 08/28/17 14:07 ting Review of Systems Except as stated in HPI: all other systems reviewed are negative PMFSH History History Provided By: Patient Medical History Medical History Clostridium difficile diarrhea (Acute) Clostridium difficile infection (Acute) Diverticulitis (Acute) Hypertension (Acute) S/P fecal transplant (Acute) Social History Social History Substance History: Active Abuse Second Hand Smoke Exposure: No Smoking Status: Never smoker How Often Do You Have a Drink Containing Alcohol: 2 to 3 times a week Recent Travel in [facility] within the Last 8 Weeks: No Recent Out of Country Travel within the Last 8 Weeks: No Exam Narrative Exam Narrative: GENERAL: Well-nourished, well-developed patient in no apparent distress. SKIN: Warm and dry. HEAD: Atraumatic. Normocephalic. EYES: Pupils equal and round. No scleral icterus. No injection or drainage. ENT: No nasal bleeding or discharge. Mucous membranes pink and moist. NECK: Trachea midline. No JVD. CARDIOVASCULAR: Regular rate and rhythm. no rubs or gallops RESPIRATORY: No accessory muscle use. Clear to auscultation. Breath sounds equal bilaterally. GASTROINTESTINAL: Abdomen soft, non-tender, nondistended. No rebound or guarding...hyperactive bowel sound MUSCULOSKELETAL: Extremities without clubbing, cyanosis, or edema. No obvious deformities. NEUROLOGICAL: Awake and alert. No obvious cranial nerve deficits. Motor grossly within normal limits. Five out of 5 muscle strength in the arms and legs. Normal speech. PSYCHIATRIC: Appropriate mood and affect; insight and judgment normal. Course Initial Documented Vital Signs Temperature 97.7 F 10/28/17 16:34 Pulse Rate 107 H 10/28/17 16:34 Respiratory Rate 23 10/28/17 16:34 Blood Pressure 104/83 10/28/17 16:34 Pulse Oximetry 99 10/28/17 16:34 Last Documented Vital Signs Temperature 98.2 F 11/13/17 16:00 Pulse Rate 86 11/13/17 16:00 Respiratory Rate 17 11/13/17 16:00 Blood Pressure 145/74 H 11/13/17 16:00 Pulse Oximetry 100 11/13/17 16:00 Critical Care Time Critical Care Time: Yes Total Critical Care Time: 30 Attestation: Aggregate critical care time was 30 minutes. Time to perform other separately billable procedures was not included in the critical care time. My time did not include minutes spent treating any other patients simultaneously or on activities that did not directly contribute to the patient's treatment. The services I provided to this patient were to treat and/or prevent clinically significant deterioration that could result in: further end organ damage, permanent disability, or I provided critical care services requiring my management, as noted below: Chart data review, documentation time, medication orders and management, vital sign assessments/reviewing monitor data, ordering and reviewing lab tests, ordering and interpreting/reviewing x-rays and diagnostic studies, care of the patient and discussion of the patient with the admitting physicians. Medical Decision Making Differential Diagnosis Differential Diagnosis: pancreatitis v hepatitis v c diff colitis Lab Data Lab results reviewed: Yes I reviewed the patient's lab results. Lab results narrative: leukocytosis, hyponatremia, acute renal failure Result diagrams: 11/13/17 10:54 11/13/17 10:34 Lab Results 10/28/17 10/28/17 10/28/17 Range/Units 17:10 17:10 17:10 WBC 16.0 H (4.0-11.0) th/mm3 RBC 3.72 L (4.50-5.90) mil/mm3 Hgb 10.9 L (13.0-17.0) gm/dL Hct 31.4 L (39.0-51.0) % MCV 84.4 (80.0-100.0) fL MCH 29.4 (27.0-34.0) pg MCHC 34.8 (32.0-36.0) % RDW 21.3 H (11.6-17.2) % Plt Count 251 (150-450) th/mm3 MPV 8.9 (7.0-11.0) fL Prelim Diff (Auto) Neut % (Auto) 91.0 H (16.0-70.0) % Lymph % (Auto) 4.6 L (9.0-44.0) % [place] % (Auto) 4.2 (0.0-8.0) % Eos % (Auto) 0.0 (0.0-4.0) % Baso % (Auto) 0.2 (0.0-2.0) % Neut # (Auto) 14.5 H (1.8-7.7) th/mm3 Lymph # (Auto) 0.7 L (1.0-4.8) th/mm3 [place] # (Auto) 0.7 (0.0-0.9) th/mm3 Eos # (Auto) 0.0 (0.0-0.4) th/mm3 Baso # (Auto) 0.0 (0.0-0.2) th/mm3 WBC Differential . Seg Neuts % (Manual) (16-70) % Band Neuts % (Manual) (0-6) % Lymphocytes % (Manual) (9-44) % Monocytes % (Manual) (0-8) % Eosinophils % (Manual) (0-4) % Metamyelocytes % (Man) (0-1) % Abs Neuts (Manual) (1.8-7.7) th/mm3 Differential Comment Auto diff final Toxic Granulation (None) Platelet Estimate (Normal) Platelet Morphology (Normal) Rhett Cells (None) PT (9.8-11.6) sec INR Ratio APTT (24.3-30.1) sec Sodium 128 L (136-145) meq/L Potassium 3.5 (3.5-5.1) meq/L Chloride 89 L (98-107) meq/L Carbon Dioxide 16.0 L (21.0-32.0) meq/L Anion Gap 23 H (5-15) meq/L BUN 81 H (7-18) mg/dL Creatinine 5.13 H (0.60-1.30) mg/dL Estimated GFR 11 L (>89) mL/min Random Glucose 81 (74-106) mg/dL Lactic Acid 4.1 H* (0.4-2.0) mmol/L Calcium 7.3 L* (8.5-10.1) mg/dL Prot Corrected Calcium 7.1 L* (8.5-10.1) mg/dL Phosphorus (2.5-4.9) mg/dL Magnesium (1.5-2.5) mg/dL Total Bilirubin 0.5 (0.2-1.0) mg/dL AST 8 L (15-37) U/L ALT 13 (12-78) U/L Alkaline Phosphatase 64 (45-117) U/L Total Creatine Kinase (39-308) U/L Total Protein 7.7 (6.4-8.2) g/dL Albumin 3.8 (3.4-5.0) g/dL Lipase 307 (73-393) U/L Urine Color (Yellw/Straw) Urine Clarity (Clear) Urine pH (5.0-8.5) Ur Specific [place] (1.002-1.035) Urine Protein (Neg-Trace) mg/dL Urine Glucose (UA) (Negative) mg/dL Urine Ketones (Negative) mg/dL Urine Occult Blood (Negative) Urine Nitrate (Negative) Urine Bilirubin (Negative) Urine Urobilinogen (Less than 2) mg/dL Ur Leukocyte Esterase (Negative) Urine RBC (0-3) /hpf Urine WBC (0-5) /hpf Ur Squamous Epith Cells (0-5) /hpf Hyaline Casts (0-3) /lpf Micro UA Comment Urine Culture Comments Nasal Screen MRSA (PCR) (Negative) Stl C.difficile Tox PCR (Negative) St C. diff Tox Epid 027 (Negative) Random Vancomycin Comment 10/28/17 10/28/17 10/28/17 Range/Units 17:10 19:44 20:00 WBC (4.0-11.0) th/mm3 RBC (4.50-5.90) mil/mm3 Hgb (13.0-17.0) gm/dL Hct (39.0-51.0) % MCV (80.0-100.0) fL MCH (27.0-34.0) pg MCHC (32.0-36.0) % RDW (11.6-17.2) % Plt Count (150-450) th/mm3 MPV (7.0-11.0) fL Prelim Diff (Auto) Neut % (Auto) (16.0-70.0) % Lymph % (Auto) (9.0-44.0) % [place] % (Auto) (0.0-8.0) % Eos % (Auto) (0.0-4.0) % Baso % (Auto) (0.0-2.0) % Neut # (Auto) (1.8-7.7) th/mm3 Lymph # (Auto) (1.0-4.8) th/mm3 [place] # (Auto) (0.0-0.9) th/mm3 Eos # (Auto) (0.0-0.4) th/mm3 Baso # (Auto) (0.0-0.2) th/mm3 WBC Differential Seg Neuts % (Manual) (16-70) % Band Neuts % (Manual) (0-6) % Lymphocytes % (Manual) (9-44) % Monocytes % (Manual) (0-8) % Eosinophils % (Manual) (0-4) % Metamyelocytes % (Man) (0-1) % Abs Neuts (Manual) (1.8-7.7) th/mm3 Differential Comment Toxic Granulation (None) Platelet Estimate (Normal) Platelet Morphology (Normal) Rhett Cells (None) PT (9.8-11.6) sec INR Ratio APTT (24.3-30.1) sec Sodium (136-145) meq/L Potassium (3.5-5.1) meq/L Chloride (98-107) meq/L Carbon Dioxide (21.0-32.0) meq/L Anion Gap (5-15) meq/L BUN (7-18) mg/dL Creatinine (0.60-1.30) mg/dL Estimated GFR (>89) mL/min Random Glucose (74-106) mg/dL Lactic Acid 2.3 H (0.4-2.0) mmol/L Calcium (8.5-10.1) mg/dL Prot Corrected Calcium (8.5-10.1) mg/dL Phosphorus (2.5-4.9) mg/dL Magnesium (1.5-2.5) mg/dL Total Bilirubin (0.2-1.0) mg/dL AST (15-37) U/L ALT (12-78) U/L Alkaline Phosphatase (45-117) U/L Total Creatine Kinase (39-308) U/L Total Protein (6.4-8.2) g/dL Albumin (3.4-5.0) g/dL Lipase (73-393) U/L Urine Color Yellow (Yellw/Straw) Urine Clarity Hazy H (Clear) Urine pH 5.0 (5.0-8.5) Ur Specific [place] 1.012 (1.002-1.035) Urine Protein Negative (Neg-Trace) mg/dL Urine Glucose (UA) Negative (Negative) mg/dL Urine Ketones Negative (Negative) mg/dL Urine Occult Blood Small H (Negative) Urine Nitrate Negative (Negative) Urine Bilirubin Negative (Negative) Urine Urobilinogen 2.0 H (Less than 2) mg/dL Ur Leukocyte Esterase Negative (Negative) Urine RBC 1 (0-3) /hpf Urine WBC 2 (0-5) /hpf Ur Squamous Epith Cells 1 (0-5) /hpf Hyaline Casts 1 (0-3) /lpf Micro UA Comment Culture not ind Urine Culture Comments Culture not ind Nasal Screen MRSA (PCR) (Negative) Stl C.difficile Tox PCR Positive H (Negative) St C. diff Tox Epid 027 Negative (Negative) Random Vancomycin Comment 10/28/17 10/29/17 10/29/17 Range/Units 23:15 04:04 04:04 WBC 16.7 H (4.0-11.0) th/mm3 RBC 3.48 L (4.50-5.90) mil/mm3 Hgb 9.9 L (13.0-17.0) gm/dL Hct 29.9 L (39.0-51.0) % MCV 85.9 (80.0-100.0) fL MCH 28.4 (27.0-34.0) pg MCHC 33.0 (32.0-36.0) % RDW 21.1 H (11.6-17.2) % Plt Count 253 (150-450) th/mm3 MPV 8.8 (7.0-11.0) fL Prelim Diff (Auto) Neut % (Auto) 87.6 H (16.0-70.0) % Lymph % (Auto) 4.9 L (9.0-44.0) % [place] % (Auto) 7.4 (0.0-8.0) % Eos % (Auto) 0.0 (0.0-4.0) % Baso % (Auto) 0.1 (0.0-2.0) % Neut # (Auto) 14.6 H (1.8-7.7) th/mm3 Lymph # (Auto) 0.8 L (1.0-4.8) th/mm3 [place] # (Auto) 1.2 H (0.0-0.9) th/mm3 Eos # (Auto) 0.0 (0.0-0.4) th/mm3 Baso # (Auto) 0.0 (0.0-0.2) th/mm3 WBC Differential . Seg Neuts % (Manual) (16-70) % Band Neuts % (Manual) (0-6) % Lymphocytes % (Manual) (9-44) % Monocytes % (Manual) (0-8) % Eosinophils % (Manual) (0-4) % Metamyelocytes % (Man) (0-1) % Abs Neuts (Manual) (1.8-7.7) th/mm3 Differential Comment Auto diff final Toxic Granulation (None) Platelet Estimate (Normal) Platelet Morphology (Normal) Rhett Cells (None) PT 10.3 (9.8-11.6) sec INR 1.0 Ratio APTT 26.5 (24.3-30.1) sec Sodium (136-145) meq/L Potassium (3.5-5.1) meq/L Chloride (98-107) meq/L Carbon Dioxide (21.0-32.0) meq/L Anion Gap (5-15) meq/L BUN (7-18) mg/dL Creatinine (0.60-1.30) mg/dL Estimated GFR (>89) mL/min Random Glucose (74-106) mg/dL Lactic Acid (0.4-2.0) mmol/L Calcium (8.5-10.1) mg/dL Prot Corrected Calcium (8.5-10.1) mg/dL Phosphorus (2.5-4.9) mg/dL Magnesium (1.5-2.5) mg/dL Total Bilirubin (0.2-1.0) mg/dL AST (15-37) U/L ALT (12-78) U/L Alkaline Phosphatase (45-117) U/L Total Creatine Kinase (39-308) U/L Total Protein (6.4-8.2) g/dL Albumin (3.4-5.0) g/dL Lipase (73-393) U/L Urine Color (Yellw/Straw) Urine Clarity (Clear) Urine pH (5.0-8.5) Ur Specific [place] (1.002-1.035) Urine Protein (Neg-Trace) mg/dL Urine Glucose (UA) (Negative) mg/dL Urine Ketones (Negative) mg/dL Urine Occult Blood (Negative) Urine Nitrate (Negative) Urine Bilirubin (Negative) Urine Urobilinogen (Less than 2) mg/dL Ur Leukocyte Esterase (Negative) Urine RBC (0-3) /hpf Urine WBC (0-5) /hpf Ur Squamous Epith Cells (0-5) /hpf Hyaline Casts (0-3) /lpf Micro UA Comment Urine Culture Comments Nasal Screen MRSA (PCR) Not detected (Negative) Stl C.difficile Tox PCR (Negative) St C. diff Tox Epid 027 (Negative) Random Vancomycin Comment 10/29/17 10/29/17 10/30/17 Range/Units 04:04 04:04 04:43 WBC 11.3 H (4.0-11.0) th/mm3 RBC 3.41 L (4.50-5.90) mil/mm3 Hgb 9.7 L (13.0-17.0) gm/dL Hct 29.8 L (39.0-51.0) % MCV 87.3 (80.0-100.0) fL MCH 28.5 (27.0-34.0) pg MCHC 32.7 (32.0-36.0) % RDW 21.0 H (11.6-17.2) % Plt Count 197 (150-450) th/mm3 MPV 9.4 (7.0-11.0) fL Prelim Diff (Auto) Neut % (Auto) 78.1 H (16.0-70.0) % Lymph % (Auto) 9.6 (9.0-44.0) % [place] % (Auto) 11.8 H (0.0-8.0) % Eos % (Auto) 0.2 (0.0-4.0) % Baso % (Auto) 0.3 (0.0-2.0) % Neut # (Auto) 8.8 H (1.8-7.7) th/mm3 Lymph # (Auto) 1.1 (1.0-4.8) th/mm3 [place] # (Auto) 1.3 H (0.0-0.9) th/mm3 Eos # (Auto) 0.0 (0.0-0.4) th/mm3 Baso # (Auto) 0.0 (0.0-0.2) th/mm3 WBC Differential . Seg Neuts % (Manual) (16-70) % Band Neuts % (Manual) (0-6) % Lymphocytes % (Manual) (9-44) % Monocytes % (Manual) (0-8) % Eosinophils % (Manual) (0-4) % Metamyelocytes % (Man) (0-1) % Abs Neuts (Manual) (1.8-7.7) th/mm3 Differential Comment Auto diff final Toxic Granulation (None) Platelet Estimate (Normal) Platelet Morphology (Normal) Rhett Cells (None) PT (9.8-11.6) sec INR Ratio APTT (24.3-30.1) sec Sodium 137 (136-145) meq/L Potassium 3.5 (3.5-5.1) meq/L Chloride 104 D (98-107) meq/L Carbon Dioxide 15.8 L (21.0-32.0) meq/L Anion Gap 17 H (5-15) meq/L BUN 67 H (7-18) mg/dL Creatinine 3.40 H (0.60-1.30) mg/dL Estimated GFR 18 L (>89) mL/min Random Glucose 108 H (74-106) mg/dL Lactic Acid 0.9 (0.4-2.0) mmol/L Calcium 6.7 L* (8.5-10.1) mg/dL Prot Corrected Calcium 6.7 L* (8.5-10.1) mg/dL Phosphorus 5.6 H (2.5-4.9) mg/dL Magnesium 0.8 L (1.5-2.5) mg/dL Total Bilirubin 0.5 (0.2-1.0) mg/dL AST 23 (15-37) U/L ALT 15 (12-78) U/L Alkaline Phosphatase 61 (45-117) U/L Total Creatine Kinase (39-308) U/L Total Protein 7.2 (6.4-8.2) g/dL Albumin 3.7 (3.4-5.0) g/dL Lipase (73-393) U/L Urine Color (Yellw/Straw) Urine Clarity (Clear) Urine pH (5.0-8.5) Ur Specific [place] (1.002-1.035) Urine Protein (Neg-Trace) mg/dL Urine Glucose (UA) (Negative) mg/dL Urine Ketones (Negative) mg/dL Urine Occult Blood (Negative) Urine Nitrate (Negative) Urine Bilirubin (Negative) Urine Urobilinogen (Less than 2) mg/dL Ur Leukocyte Esterase (Negative) Urine RBC (0-3) /hpf Urine WBC (0-5) /hpf Ur Squamous Epith Cells (0-5) /hpf Hyaline Casts (0-3) /lpf Micro UA Comment Urine Culture Comments Nasal Screen MRSA (PCR) (Negative) Stl C.difficile Tox PCR (Negative) St C. diff Tox Epid 027 (Negative) Random Vancomycin Comment 07/07/18 07/08/18 07/08/18 Range/Units 04:43 04:23 04:23 WBC 11.1 H (4.0-11.0) th/mm3 RBC 3.36 L (4.50-5.90) mil/mm3 Hgb 9.5 L (13.0-17.0) gm/dL Hct 28.7 L (39.0-51.0) % MCV 85.6 (80.0-100.0) fL MCH 28.3 (27.0-34.0) pg MCHC 33.1 (32.0-36.0) % RDW 20.9 H (11.6-17.2) % Plt Count 196 (150-450) th/mm3 MPV 9.2 (7.0-11.0) fL Prelim Diff (Auto) Neut % (Auto) 65.0 (16.0-70.0) % Lymph % (Auto) 20.6 (9.0-44.0) % [place] % (Auto) 12.5 H (0.0-8.0) % Eos % (Auto) 1.1 (0.0-4.0) % Baso % (Auto) 0.8 (0.0-2.0) % Neut # (Auto) 7.2 (1.8-7.7) th/mm3 Lymph # (Auto) 2.3 (1.0-4.8) th/mm3 [place] # (Auto) 1.4 H (0.0-0.9) th/mm3 Eos # (Auto) 0.1 (0.0-0.4) th/mm3 Baso # (Auto) 0.1 (0.0-0.2) th/mm3 WBC Differential . Seg Neuts % (Manual) (16-70) % Band Neuts % (Manual) (0-6) % Lymphocytes % (Manual) (9-44) % Monocytes % (Manual) (0-8) % Eosinophils % (Manual) (0-4) % Metamyelocytes % (Man) (0-1) % Abs Neuts (Manual) (1.8-7.7) th/mm3 Differential Comment Auto diff final Toxic Granulation (None) Platelet Estimate (Normal) Platelet Morphology (Normal) [place] Cells (None) PT (9.8-11.6) sec INR Ratio APTT (24.3-30.1) sec Sodium 140 137 (136-145) meq/L Potassium 3.6 3.3 L (3.5-5.1) meq/L Chloride 110 H 106 (98-107) meq/L Carbon Dioxide 14.3 L 18.6 L (21.0-32.0) meq/L Anion Gap 16 H 12 (5-15) meq/L BUN 40 H 23 H (7-18) mg/dL Creatinine 1.81 H 1.46 H (0.60-1.30) mg/dL Estimated GFR 38 L 49 L (>89) mL/min Random Glucose 78 99 (74-106) mg/dL Lactic Acid (0.4-2.0) mmol/L Calcium 9.2 D 8.5 (8.5-10.1) mg/dL Prot Corrected Calcium (8.5-10.1) mg/dL Phosphorus (2.5-4.9) mg/dL Magnesium (1.5-2.5) mg/dL Total Bilirubin 0.6 0.8 (0.2-1.0) mg/dL AST 28 51 H (15-37) U/L ALT 16 26 (12-78) U/L Alkaline Phosphatase 60 92 (45-117) U/L Total Creatine Kinase 255 (39-308) U/L Total Protein 6.6 D 6.8 (6.4-8.2) g/dL Albumin 3.2 L 3.3 L (3.4-5.0) g/dL Lipase (73-393) U/L Urine Color (Yellw/Straw) Urine Clarity (Clear) Urine pH (5.0-8.5) Ur Specific [place] (1.002-1.035) Urine Protein (Neg-Trace) mg/dL Urine Glucose (UA) (Negative) mg/dL Urine Ketones (Negative) mg/dL Urine Occult Blood (Negative) Urine Nitrate (Negative) Urine Bilirubin (Negative) Urine Urobilinogen (Less than 2) mg/dL Ur Leukocyte Esterase (Negative) Urine RBC (0-3) /hpf Urine WBC (0-5) /hpf Ur Squamous Epith Cells (0-5) /hpf Hyaline Casts (0-3) /lpf Micro UA Comment Urine Culture Comments Nasal Screen MRSA (PCR) (Negative) Stl C.difficile Tox PCR (Negative) St C. diff Tox Epid 027 (Negative) Random Vancomycin Less than 0.8 Comment 11/01/17 11/01/17 11/02/17 Range/Units 07:52 07:52 10:40 WBC 7.5 (4.0-11.0) th/mm3 RBC 3.26 L (4.50-5.90) mil/mm3 Hgb 9.4 L (13.0-17.0) gm/dL Hct 28.1 L (39.0-51.0) % MCV 86.2 (80.0-100.0) fL MCH 28.7 (27.0-34.0) pg MCHC 33.2 (32.0-36.0) % RDW 20.4 H (11.6-17.2) % Plt Count 187 (150-450) th/mm3 MPV 8.8 (7.0-11.0) fL Prelim Diff (Auto) Neut % (Auto) 64.6 (16.0-70.0) % Lymph % (Auto) 21.2 (9.0-44.0) % [place] % (Auto) 12.3 H (0.0-8.0) % Eos % (Auto) 1.1 (0.0-4.0) % Baso % (Auto) 0.8 (0.0-2.0) % Neut # (Auto) 4.9 (1.8-7.7) th/mm3 Lymph # (Auto) 1.6 (1.0-4.8) th/mm3 [place] # (Auto) 0.9 (0.0-0.9) th/mm3 Eos # (Auto) 0.1 (0.0-0.4) th/mm3 Baso # (Auto) 0.1 (0.0-0.2) th/mm3 WBC Differential . Seg Neuts % (Manual) (16-70) % Band Neuts % (Manual) (0-6) % Lymphocytes % (Manual) (9-44) % Monocytes % (Manual) (0-8) % Eosinophils % (Manual) (0-4) % Metamyelocytes % (Man) (0-1) % Abs Neuts (Manual) (1.8-7.7) th/mm3 Differential Comment Auto diff final Toxic Granulation (None) Platelet Estimate (Normal) Platelet Morphology (Normal) [place] Cells (None) PT (9.8-11.6) sec INR Ratio APTT (24.3-30.1) sec Sodium 138 139 (136-145) meq/L Potassium 3.2 L 3.6 (3.5-5.1) meq/L Chloride 103 108 H (98-107) meq/L Carbon Dioxide 19.7 L 17.4 L (21.0-32.0) meq/L Anion Gap 15 14 (5-15) meq/L BUN 13 10 (7-18) mg/dL Creatinine 1.17 1.09 (0.60-1.30) mg/dL Estimated GFR 63 L 68 L (>89) mL/min Random Glucose 86 90 (74-106) mg/dL Lactic Acid (0.4-2.0) mmol/L Calcium 8.1 L 8.0 L (8.5-10.1) mg/dL Prot Corrected Calcium (8.5-10.1) mg/dL Phosphorus 1.5 L (2.5-4.9) mg/dL Magnesium 0.6 L 0.8 L (1.5-2.5) mg/dL Total Bilirubin 0.4 (0.2-1.0) mg/dL AST 32 (15-37) U/L ALT 33 (12-78) U/L Alkaline Phosphatase 92 (45-117) U/L Total Creatine Kinase (39-308) U/L Total Protein 6.6 (6.4-8.2) g/dL Albumin 3.3 L (3.4-5.0) g/dL Lipase (73-393) U/L Urine Color (Yellw/Straw) Urine Clarity (Clear) Urine pH (5.0-8.5) Ur Specific [place] (1.002-1.035) Urine Protein (Neg-Trace) mg/dL Urine Glucose (UA) (Negative) mg/dL Urine Ketones (Negative) mg/dL Urine Occult Blood (Negative) Urine Nitrate (Negative) Urine Bilirubin (Negative) Urine Urobilinogen (Less than 2) mg/dL Ur Leukocyte Esterase (Negative) Urine RBC (0-3) /hpf Urine WBC (0-5) /hpf Ur Squamous Epith Cells (0-5) /hpf Hyaline Casts (0-3) /lpf Micro UA Comment Urine Culture Comments Nasal Screen MRSA (PCR) (Negative) Stl C.difficile Tox PCR (Negative) St C. diff Tox Epid 027 (Negative) Random Vancomycin Comment 11/02/17 11/03/17 11/04/17 Range/Units 10:40 08:35 08:06 WBC (4.0-11.0) th/mm3 RBC (4.50-5.90) mil/mm3 Hgb (13.0-17.0) gm/dL Hct (39.0-51.0) % MCV (80.0-100.0) fL MCH (27.0-34.0) pg MCHC (32.0-36.0) % RDW (11.6-17.2) % Plt Count (150-450) th/mm3 MPV (7.0-11.0) fL Prelim Diff (Auto) Neut % (Auto) (16.0-70.0) % Lymph % (Auto) (9.0-44.0) % [place] % (Auto) (0.0-8.0) % Eos % (Auto) (0.0-4.0) % Baso % (Auto) (0.0-2.0) % Neut # (Auto) (1.8-7.7) th/mm3 Lymph # (Auto) (1.0-4.8) th/mm3 [place] # (Auto) (0.0-0.9) th/mm3 Eos # (Auto) (0.0-0.4) th/mm3 Baso # (Auto) (0.0-0.2) th/mm3 WBC Differential Seg Neuts % (Manual) (16-70) % Band Neuts % (Manual) (0-6) % Lymphocytes % (Manual) (9-44) % Monocytes % (Manual) (0-8) % Eosinophils % (Manual) (0-4) % Metamyelocytes % (Man) (0-1) % Abs Neuts (Manual) (1.8-7.7) th/mm3 Differential Comment Toxic Granulation (None) Platelet Estimate (Normal) Platelet Morphology (Normal) [place] Cells (None) PT (9.8-11.6) sec INR Ratio APTT (24.3-30.1) sec Sodium 138 139 (136-145) meq/L Potassium 3.8 4.4 (3.5-5.1) meq/L Chloride 110 H 114 H (98-107) meq/L Carbon Dioxide 17.1 L 14.1 L (21.0-32.0) meq/L Anion Gap 11 11 (5-15) meq/L BUN 8 6 L (7-18) mg/dL Creatinine 1.25 1.05 (0.60-1.30) mg/dL Estimated GFR 58 L 71 L (>89) mL/min Random Glucose 111 H 99 (74-106) mg/dL Lactic Acid (0.4-2.0) mmol/L Calcium 7.8 L 8.1 L (8.5-10.1) mg/dL Prot Corrected Calcium (8.5-10.1) mg/dL Phosphorus 1.9 L 2.7 2.2 L (2.5-4.9) mg/dL Magnesium 1.3 L 1.5 (1.5-2.5) mg/dL Total Bilirubin (0.2-1.0) mg/dL AST (15-37) U/L ALT (12-78) U/L Alkaline Phosphatase (45-117) U/L Total Creatine Kinase (39-308) U/L Total Protein (6.4-8.2) g/dL Albumin (3.4-5.0) g/dL Lipase (73-393) U/L Urine Color (Yellw/Straw) Urine Clarity (Clear) Urine pH (5.0-8.5) Ur Specific [place] (1.002-1.035) Urine Protein (Neg-Trace) mg/dL Urine Glucose (UA) (Negative) mg/dL Urine Ketones (Negative) mg/dL Urine Occult Blood (Negative) Urine Nitrate (Negative) Urine Bilirubin (Negative) Urine Urobilinogen (Less than 2) mg/dL Ur Leukocyte Esterase (Negative) Urine RBC (0-3) /hpf Urine WBC (0-5) /hpf Ur Squamous Epith Cells (0-5) /hpf Hyaline Casts (0-3) /lpf Micro UA Comment Urine Culture Comments Nasal Screen MRSA (PCR) (Negative) Stl C.difficile Tox PCR (Negative) St C. diff Tox Epid 027 (Negative) Random Vancomycin Comment 11/05/17 11/06/1718 Range/Units 06:26 05:32 14:46 WBC (4.0-11.0) th/mm3 RBC (4.50-5.90) mil/mm3 Hgb (13.0-17.0) gm/dL Hct (39.0-51.0) % MCV (80.0-100.0) fL MCH (27.0-34.0) pg MCHC (32.0-36.0) % RDW (11.6-17.2) % Plt Count (150-450) th/mm3 MPV (7.0-11.0) fL Prelim Diff (Auto) Neut % (Auto) (16.0-70.0) % Lymph % (Auto) (9.0-44.0) % [place] % (Auto) (0.0-8.0) % Eos % (Auto) (0.0-4.0) % Baso % (Auto) (0.0-2.0) % Neut # (Auto) (1.8-7.7) th/mm3 Lymph # (Auto) (1.0-4.8) th/mm3 [place] # (Auto) (0.0-0.9) th/mm3 Eos # (Auto) (0.0-0.4) th/mm3 Baso # (Auto) (0.0-0.2) th/mm3 WBC Differential Seg Neuts % (Manual) (16-70) % Band Neuts % (Manual) (0-6) % Lymphocytes % (Manual) (9-44) % Monocytes % (Manual) (0-8) % Eosinophils % (Manual) (0-4) % Metamyelocytes % (Man) (0-1) % Abs Neuts (Manual) (1.8-7.7) th/mm3 Differential Comment Toxic Granulation (None) Platelet Estimate (Normal) Platelet Morphology (Normal) [place] Cells (None) PT (9.8-11.6) sec INR Ratio APTT (24.3-30.1) sec Sodium 139 137 139 (136-145) meq/L Potassium 4.6 4.3 4.6 (3.5-5.1) meq/L Chloride 115 H 111 H 112 H (98-107) meq/L Carbon Dioxide 13.8 L 12.6 L 14.3 L (21.0-32.0) meq/L Anion Gap 10 13 13 (5-15) meq/L BUN 6 L 6 L 6 L (7-18) mg/dL Creatinine 1.10 1.12 1.01 (0.60-1.30) mg/dL Estimated GFR 67 L 66 L 74 L (>89) mL/min Random Glucose 99 102 107 H (74-106) mg/dL Lactic Acid (0.4-2.0) mmol/L Calcium 8.8 8.8 8.8 (8.5-10.1) mg/dL Prot Corrected Calcium (8.5-10.1) mg/dL Phosphorus (2.5-4.9) mg/dL Magnesium 1.4 L 1.2 L (1.5-2.5) mg/dL Total Bilirubin (0.2-1.0) mg/dL AST (15-37) U/L ALT (12-78) U/L Alkaline Phosphatase (45-117) U/L Total Creatine Kinase (39-308) U/L Total Protein (6.4-8.2) g/dL Albumin (3.4-5.0) g/dL Lipase (73-393) U/L Urine Color (Yellw/Straw) Urine Clarity (Clear) Urine pH (5.0-8.5) Ur Specific [place] (1.002-1.035) Urine Protein (Neg-Trace) mg/dL Urine Glucose (UA) (Negative) mg/dL Urine Ketones (Negative) mg/dL Urine Occult Blood (Negative) Urine Nitrate (Negative) Urine Bilirubin (Negative) Urine Urobilinogen (Less than 2) mg/dL Ur Leukocyte Esterase (Negative) Urine RBC (0-3) /hpf Urine WBC (0-5) /hpf Ur Squamous Epith Cells (0-5) /hpf Hyaline Casts (0-3) /lpf Micro UA Comment Urine Culture Comments Nasal Screen MRSA (PCR) (Negative) Stl C.difficile Tox PCR (Negative) St C. diff Tox Epid 027 (Negative) Random Vancomycin Comment 11/08/17 11/08/17 11/09/17 Range/Units 09:10 09:10 04:39 WBC 12.8 H (4.0-11.0) th/mm3 RBC 3.30 L (4.50-5.90) mil/mm3 Hgb 9.4 L (13.0-17.0) gm/dL Hct 29.6 L (39.0-51.0) % MCV 89.6 (80.0-100.0) fL MCH 28.6 (27.0-34.0) pg MCHC 31.9 L (32.0-36.0) % RDW 21.0 H (11.6-17.2) % Plt Count 512 H D (150-450) th/mm3 MPV 8.7 (7.0-11.0) fL Prelim Diff (Auto) Neut % (Auto) 73.2 H (16.0-70.0) % Lymph % (Auto) 15.9 (9.0-44.0) % [place] % (Auto) 9.7 H (0.0-8.0) % Eos % (Auto) 0.5 (0.0-4.0) % Baso % (Auto) 0.7 (0.0-2.0) % Neut # (Auto) 9.4 H (1.8-7.7) th/mm3 Lymph # (Auto) 2.0 (1.0-4.8) th/mm3 [place] # (Auto) 1.2 H (0.0-0.9) th/mm3 Eos # (Auto) 0.1 (0.0-0.4) th/mm3 Baso # (Auto) 0.1 (0.0-0.2) th/mm3 WBC Differential . Seg Neuts % (Manual) (16-70) % Band Neuts % (Manual) (0-6) % Lymphocytes % (Manual) (9-44) % Monocytes % (Manual) (0-8) % Eosinophils % (Manual) (0-4) % Metamyelocytes % (Man) (0-1) % Abs Neuts (Manual) (1.8-7.7) th/mm3 Differential Comment Auto diff final Toxic Granulation (None) Platelet Estimate (Normal) Platelet Morphology (Normal) [place] Cells (None) PT (9.8-11.6) sec INR Ratio APTT (24.3-30.1) sec Sodium 137 137 (136-145) meq/L Potassium 5.0 4.8 (3.5-5.1) meq/L Chloride 111 H 113 H (98-107) meq/L Carbon Dioxide 11.9 L 12.7 L (21.0-32.0) meq/L Anion Gap 14 11 (5-15) meq/L BUN 7 6 L (7-18) mg/dL Creatinine 1.08 0.95 (0.60-1.30) mg/dL Estimated GFR 69 L 80 L (>89) mL/min Random Glucose 76 93 (74-106) mg/dL Lactic Acid (0.4-2.0) mmol/L Calcium 9.0 8.7 (8.5-10.1) mg/dL Prot Corrected Calcium (8.5-10.1) mg/dL Phosphorus (2.5-4.9) mg/dL Magnesium 1.1 L 1.4 L (1.5-2.5) mg/dL Total Bilirubin (0.2-1.0) mg/dL AST (15-37) U/L ALT (12-78) U/L Alkaline Phosphatase (45-117) U/L Total Creatine Kinase (39-308) U/L Total Protein (6.4-8.2) g/dL Albumin (3.4-5.0) g/dL Lipase (73-393) U/L Urine Color (Yellw/Straw) Urine Clarity (Clear) Urine pH (5.0-8.5) Ur Specific [place] (1.002-1.035) Urine Protein (Neg-Trace) mg/dL Urine Glucose (UA) (Negative) mg/dL Urine Ketones (Negative) mg/dL Urine Occult Blood (Negative) Urine Nitrate (Negative) Urine Bilirubin (Negative) Urine Urobilinogen (Less than 2) mg/dL Ur Leukocyte Esterase (Negative) Urine RBC (0-3) /hpf Urine WBC (0-5) /hpf Ur Squamous Epith Cells (0-5) /hpf Hyaline Casts (0-3) /lpf Micro UA Comment Urine Culture Comments Nasal Screen MRSA (PCR) (Negative) Stl C.difficile Tox PCR (Negative) St C. diff Tox Epid 027 (Negative) Random Vancomycin Comment 11/12/17 11/12/17 11/12/17 Range/Units 08:35 08:35 08:35 WBC 15.1 H (4.0-11.0) th/mm3 RBC 3.53 L (4.50-5.90) mil/mm3 Hgb 10.1 L (13.0-17.0) gm/dL Hct 32.0 L (39.0-51.0) % MCV 90.6 (80.0-100.0) fL MCH 28.6 (27.0-34.0) pg MCHC 31.5 L (32.0-36.0) % RDW 20.5 H (11.6-17.2) % Plt Count 614 H (150-450) th/mm3 MPV 8.0 (7.0-11.0) fL Prelim Diff (Auto) Slide review pending Neut % (Auto) 74.2 H (16.0-70.0) % Lymph % (Auto) 18.0 (9.0-44.0) % [place] % (Auto) 6.1 (0.0-8.0) % Eos % (Auto) 0.9 (0.0-4.0) % Baso % (Auto) 0.8 (0.0-2.0) % Neut # (Auto) 11.2 H (1.8-7.7) th/mm3 Lymph # (Auto) 2.7 (1.0-4.8) th/mm3 [place] # (Auto) 0.9 (0.0-0.9) th/mm3 Eos # (Auto) 0.1 (0.0-0.4) th/mm3 Baso # (Auto) 0.1 (0.0-0.2) th/mm3 WBC Differential Manual diff final Seg Neuts % (Manual) 74 H (16-70) % Band Neuts % (Manual) 1 (0-6) % Lymphocytes % (Manual) 14 (9-44) % Monocytes % (Manual) 10 H (0-8) % Eosinophils % (Manual) (0-4) % Metamyelocytes % (Man) 1 (0-1) % Abs Neuts (Manual) 11.5 H (1.8-7.7) th/mm3 Differential Comment . Toxic Granulation (None) Platelet Estimate High H (Normal) Platelet Morphology Normal (Normal) [place] Cells 1+ H (None) PT (9.8-11.6) sec INR Ratio APTT (24.3-30.1) sec Sodium 138 (136-145) meq/L Potassium 5.0 (3.5-5.1) meq/L Chloride 114 H (98-107) meq/L Carbon Dioxide 10.3 L (21.0-32.0) meq/L Anion Gap 14 (5-15) meq/L BUN 7 (7-18) mg/dL Creatinine 0.93 (0.60-1.30) mg/dL Estimated GFR 82 L (>89) mL/min Random Glucose 88 (74-106) mg/dL Lactic Acid (0.4-2.0) mmol/L Calcium 9.2 (8.5-10.1) mg/dL Prot Corrected Calcium (8.5-10.1) mg/dL Phosphorus 3.2 (2.5-4.9) mg/dL Magnesium 1.0 L Cancelled (1.5-2.5) mg/dL Total Bilirubin (0.2-1.0) mg/dL AST (15-37) U/L ALT (12-78) U/L Alkaline Phosphatase (45-117) U/L Total Creatine Kinase (39-308) U/L Total Protein (6.4-8.2) g/dL Albumin (3.4-5.0) g/dL Lipase (73-393) U/L Urine Color (Yellw/Straw) Urine Clarity (Clear) Urine pH (5.0-8.5) Ur Specific [place] (1.002-1.035) Urine Protein (Neg-Trace) mg/dL Urine Glucose (UA) (Negative) mg/dL Urine Ketones (Negative) mg/dL Urine Occult Blood (Negative) Urine Nitrate (Negative) Urine Bilirubin (Negative) Urine Urobilinogen (Less than 2) mg/dL Ur Leukocyte Esterase (Negative) Urine RBC (0-3) /hpf Urine WBC (0-5) /hpf Ur Squamous Epith Cells (0-5) /hpf Hyaline Casts (0-3) /lpf Micro UA Comment Urine Culture Comments Nasal Screen MRSA (PCR) (Negative) Stl C.difficile Tox PCR (Negative) St C. diff Tox Epid 027 (Negative) Random Vancomycin Comment 11/12/17 11/12/17 11/12/17 Range/Units 08:35 17:55 19:46 WBC (4.0-11.0) th/mm3 RBC (4.50-5.90) mil/mm3 Hgb (13.0-17.0) gm/dL Hct (39.0-51.0) % MCV (80.0-100.0) fL MCH (27.0-34.0) pg MCHC (32.0-36.0) % RDW (11.6-17.2) % Plt Count (150-450) th/mm3 MPV (7.0-11.0) fL Prelim Diff (Auto) Neut % (Auto) (16.0-70.0) % Lymph % (Auto) (9.0-44.0) % [place] % (Auto) (0.0-8.0) % Eos % (Auto) (0.0-4.0) % Baso % (Auto) (0.0-2.0) % Neut # (Auto) (1.8-7.7) th/mm3 Lymph # (Auto) (1.0-4.8) th/mm3 [place] # (Auto) (0.0-0.9) th/mm3 Eos # (Auto) (0.0-0.4) th/mm3 Baso # (Auto) (0.0-0.2) th/mm3 WBC Differential Seg Neuts % (Manual) (16-70) % Band Neuts % (Manual) (0-6) % Lymphocytes % (Manual) (9-44) % Monocytes % (Manual) (0-8) % Eosinophils % (Manual) (0-4) % Metamyelocytes % (Man) (0-1) % Abs Neuts (Manual) (1.8-7.7) th/mm3 Differential Comment Toxic Granulation (None) Platelet Estimate (Normal) Platelet Morphology (Normal) [place] Cells (None) PT (9.8-11.6) sec INR Ratio APTT (24.3-30.1) sec Sodium 134 L (136-145) meq/L Potassium 5.7 H (3.5-5.1) meq/L Chloride 111 H (98-107) meq/L Carbon Dioxide 9.1 L (21.0-32.0) meq/L Anion Gap 14 (5-15) meq/L BUN 8 (7-18) mg/dL Creatinine 0.95 (0.60-1.30) mg/dL Estimated GFR 80 L (>89) mL/min Random Glucose 79 (74-106) mg/dL Lactic Acid 0.5 (0.4-2.0) mmol/L Calcium 9.1 (8.5-10.1) mg/dL Prot Corrected Calcium (8.5-10.1) mg/dL Phosphorus Cancelled (2.5-4.9) mg/dL Magnesium (1.5-2.5) mg/dL Total Bilirubin (0.2-1.0) mg/dL AST (15-37) U/L ALT (12-78) U/L Alkaline Phosphatase (45-117) U/L Total Creatine Kinase (39-308) U/L Total Protein (6.4-8.2) g/dL Albumin (3.4-5.0) g/dL Lipase (73-393) U/L Urine Color (Yellw/Straw) Urine Clarity (Clear) Urine pH (5.0-8.5) Ur Specific [place] (1.002-1.035) Urine Protein (Neg-Trace) mg/dL Urine Glucose (UA) (Negative) mg/dL Urine Ketones (Negative) mg/dL Urine Occult Blood (Negative) Urine Nitrate (Negative) Urine Bilirubin (Negative) Urine Urobilinogen (Less than 2) mg/dL Ur Leukocyte Esterase (Negative) Urine RBC (0-3) /hpf Urine WBC (0-5) /hpf Ur Squamous Epith Cells (0-5) /hpf Hyaline Casts (0-3) /lpf Micro UA Comment Urine Culture Comments Nasal Screen MRSA (PCR) (Negative) Stl C.difficile Tox PCR (Negative) St C. diff Tox Epid 027 (Negative) Random Vancomycin Comment 11/13/17 11/13/17 Range/Units 10:34 10:54 WBC 12.9 H (4.0-11.0) th/mm3 RBC 3.53 L (4.50-5.90) mil/mm3 Hgb 10.3 L (13.0-17.0) gm/dL Hct 31.2 L (39.0-51.0) % MCV 88.4 (80.0-100.0) fL MCH 29.2 (27.0-34.0) pg MCHC 33.0 (32.0-36.0) % RDW 20.2 H (11.6-17.2) % Plt Count 579 H (150-450) th/mm3 MPV 8.1 (7.0-11.0) fL Prelim Diff (Auto) Slide review pending Neut % (Auto) 75.1 H (16.0-70.0) % Lymph % (Auto) 15.3 (9.0-44.0) % [place] % (Auto) 7.5 (0.0-8.0) % Eos % (Auto) 1.1 (0.0-4.0) % Baso % (Auto) 1.0 (0.0-2.0) % Neut # (Auto) 9.7 H (1.8-7.7) th/mm3 Lymph # (Auto) 2.0 (1.0-4.8) th/mm3 [place] # (Auto) 1.0 H (0.0-0.9) th/mm3 Eos # (Auto) 0.1 (0.0-0.4) th/mm3 Baso # (Auto) 0.1 (0.0-0.2) th/mm3 WBC Differential Manual diff final Seg Neuts % (Manual) 79 H (16-70) % Band Neuts % (Manual) 4 (0-6) % Lymphocytes % (Manual) 13 (9-44) % Monocytes % (Manual) 2 (0-8) % Eosinophils % (Manual) 2 (0-4) % Metamyelocytes % (Man) (0-1) % Abs Neuts (Manual) 10.7 H (1.8-7.7) th/mm3 Differential Comment . Toxic Granulation 2+ H (None) Platelet Estimate High H (Normal) Platelet Morphology Normal (Normal) [place] Cells (None) PT (9.8-11.6) sec INR Ratio APTT (24.3-30.1) sec Sodium 137 (136-145) meq/L Potassium 4.4 D (3.5-5.1) meq/L Chloride 112 H (98-107) meq/L Carbon Dioxide 14.8 L (21.0-32.0) meq/L Anion Gap 10 (5-15) meq/L BUN 11 (7-18) mg/dL Creatinine 1.22 (0.60-1.30) mg/dL Estimated GFR 60 L (>89) mL/min Random Glucose 97 (74-106) mg/dL Lactic Acid (0.4-2.0) mmol/L Calcium 8.8 (8.5-10.1) mg/dL Prot Corrected Calcium (8.5-10.1) mg/dL Phosphorus (2.5-4.9) mg/dL Magnesium (1.5-2.5) mg/dL Total Bilirubin (0.2-1.0) mg/dL AST (15-37) U/L ALT (12-78) U/L Alkaline Phosphatase (45-117) U/L Total Creatine Kinase (39-308) U/L Total Protein (6.4-8.2) g/dL Albumin (3.4-5.0) g/dL Lipase (73-393) U/L Urine Color (Yellw/Straw) Urine Clarity (Clear) Urine pH (5.0-8.5) Ur Specific [place] (1.002-1.035) Urine Protein (Neg-Trace) mg/dL Urine Glucose (UA) (Negative) mg/dL Urine Ketones (Negative) mg/dL Urine Occult Blood (Negative) Urine Nitrate (Negative) Urine Bilirubin (Negative) Urine Urobilinogen (Less than 2) mg/dL Ur Leukocyte Esterase (Negative) Urine RBC (0-3) /hpf Urine WBC (0-5) /hpf Ur Squamous Epith Cells (0-5) /hpf Hyaline Casts (0-3) /lpf Micro UA Comment Urine Culture Comments Nasal Screen MRSA (PCR) (Negative) Stl C.difficile Tox PCR (Negative) St C. diff Tox Epid 027 (Negative) Random Vancomycin Comment Imaging Data Attestation: I personally reviewed and interpreted this imaging study as follows : Radiologist's impression: Abdomen/Pelvis CT 10/28/17 16:27 CONCLUSION: No acute noncontrast CT findings in the abdomen or pelvis. Chest X-Ray 11/10/17 00:00 CONCLUSION: No acute intrathoracic disease. Stable examination. Discharge Plan Discharge Disposition Patient Disposition: 30 Still Patient Discharge Condition Condition: Stable Discharge Order Discharge Orders: Discharge Order (Routine); Ordered 11/13/17 Ordered By: Chad Douglas Discharge Details Anticipated Discharge Date: 11/13/17 Diagnosis: Diarrhea, Acute renal failure (ARF), Sepsis Physicians Team ED Provider: Wilmer Antoine Primary Care Provider: Yamil Collado Attending Provider: Chad Douglas Other Providers: Yaa Kelly ; Ton Marsh ; Miguel Kennedy Status ED Status: Left Department Discharge Information Discharge Date/Time: 10/28/17 23:05
[2017-10-28 17:42] LABS: Baso % (Auto) 0.2 % (0.0-2.0); Hematocrit 31.4 % (39.0-51.0); Hemoglobin 10.9 gm/dL (13.0-17.0); Lymph # (Auto) 0.7 th/mm3 (1.0-4.8); Lymph % (Auto) 4.6 % (9.0-44.0); Mean Corpuscular HGB Conc 34.8 % (32.0-36.0); Mean Corpuscular Hemoglobin 29.4 pg (27.0-34.0); Mean Corpuscular Volume 84.4 fL (80.0-100.0); Mean Platelet Volume 8.9 fL (7.0-11.0); Mono # (Auto) 0.7 th/mm3 (0.0-0.9); Mono % (Auto) 4.2 % (0.0-8.0); Neut # (Auto) 14.5 th/mm3 (1.8-7.7); Platelet Count 251 th/mm3 (150-450); Red Blood Count 3.72 mil/mm3 (4.50-5.90); Red Cell Distribution Width 21.3 % (11.6-17.2)
--- NOTE | 2017-10-28 17:42 | CT ---
EXAM DATE: 10/28/2017 5:31 PM EDT AGE/SEX: 62 years / Male INDICATIONS: Nausea, vomiting and diarrhea and sharp abdominal pain today. CLINICAL DATA: This is the patient's initial encounter. Patient reports that signs and symptoms have been present for 1 day and indicates a pain score of 10/10. MEDICAL/SURGICAL HISTORY: Diverticulitis. Hypertension. None. RADIATION DOSE: 6.27 CTDI (mGy) COMPARISON: [facility] – [place] ABDOMEN & PELVIS W CONTRAST, 08/28/2017. . TECHNIQUE: Multiple contiguous axial images were obtained through the abdomen. Images were obtained using multiple row detector helical technique. Using automated exposure control and adjustment of the mA and/or kV according to patient size, radiation dose was kept as low as reasonably achievable to o btain optimal diagnostic quality images. DICOM format image data is available electronically for rev iew and comparison. FINDINGS: Lower Lungs: The visualized lower lungs are clear. Liver: Stable appearance. No suspicious mass. No biliary ductal dilatation. Spleen: Homogeneous density without enlargement. Pancreas: Unremarkable without mass or calcification. Kidneys: Normal in size and shape. No evidence of mass or hydronephrosis. Adrenal Glands: Unremarkable. Aorta: The aorta and proximal iliac vessels are grossly unremarkable without aneurysmal dilation. Bowel/Mesentery: The bowel loops are grossly unremarkable. The cecum and sigmoid colon have a normal configuration. Appendix is seen and appears normal Abdominal Wall: Intact. Retroperitoneum: No evidence of adenopathy in the retrocrural, para-aortic, or deep pelvic regions. Bladder: Contours are smooth. Reproductive Organs: No abnormal masses or calcifications seen. Inguinal: The inguinal region is unremarkable without evidence of adenopathy. Bony Structures: Left total hip arthroplasty. No acute bony findings. CONCLUSION: No acute noncontrast CT findings in the abdomen or pelvis. Electronically signed by: Alonzo Gates MD 10/28/2017 5:41 PM EDT
[2017-10-28 18:05] LABS: Albumin 3.8 g/dL (3.4-5.0); Calcium 7.3 mg/dL (8.5-10.1); Potassium 3.5 meq/L (3.5-5.1); Total Protein 7.7 g/dL (6.4-8.2)
[2017-10-28] MEDS ORDERED: Vancomycin 25 MG/ML Oral Liq 100 mL Bottle PO ONE (18:31)
[2017-10-28 20:24] LABS: Bilirubin,Urine Negative (Negative); Clarity,Urine Hazy (Clear); Color,Urine Yellow (Yellw/Straw); Glucose,Urine (UA) Negative (Negative); Hyaline Casts,Urine 1 /lpf (0-3); Leukocyte Esterase,Urine Negative (Negative); Nitrite,Urine Negative (Negative); Specific Gravity,Urine 1.012 (1.002-1.035); Squamous Epithelial Cell,Urine 1 /hpf (0-5)
[2017-10-28] MEDS ORDERED: Bisacodyl 10 MG Supp RECTAL PRN (21:05)
[2017-10-28] MEDS ORDERED: Vancomycin Consult Pharmacy OTHER ONE (21:05)
[2017-10-28] MEDS ORDERED: Morphine Sulfate Inj 2 MG/ML Vial IV.PUSH PRN (21:05)
--- NOTE | 2017-10-28 21:18 | P.HPCC ---
History of Present Illness Primary Care Physician: Yamil Collado DO History of Present Illness: 62-year-old gentleman with history of relapsing Clostridium difficile colitis, status post recent fecal transplant by Dr. Kennedy, presents today been with another onset of severe diarrhea. The patient denies fever chills, nausea, vomiting or any associated symptoms. Inpatient Certification: I certify that the inpatient services were ordered in accordance with Medicare regulations governing the order. This includes certification that hospital inpatient services are reasonable and necessary and in the case of services not specified as inpatient-only under 42 CFR 419.22(n), that they are appropriately provided as inpatient services in accordance to with the 2-midnight benchmark under 43 CFR 412.3(e) Estimated Total Length of Stay (Days): 5 Plans for Post Hospital Care: Not yet determined Review of Systems Constitutional: Reports anorexia, Denies body ache(s), Denies chills, Denies daytime sleepiness, Denies excessive sweating, Denies fatigue, Denies fever(s), Denies headache(s), Denies increased appetite, Denies lack of energy, Denies malaise, Denies night sweats, Denies weakness, Denies weight gain, Denies weight loss, Denies other Eyes: Denies blind spots, Denies blurry vision, Denies bulging eyes, Denies change in vision, Denies double vision, Denies discharge, Denies dry eyes, Denies floaters, Denies irritation, Denies itchy eyes, Denies loss of vision, Denies pain, Denies requires corrective lenses, Denies sensitivity to light, Denies other Ears, Nose, Mouth, and Throat: Denies abnormal hearing, Denies bleeding gums, Denies bad breath, Denies change in voice, Denies dental pain, Denies difficulty swallowing, Denies dizziness, Denies dry mouth, Denies ear discharge , Denies ear pain, Denies facial pain, Denies headache(s), Denies hearing loss, Denies hoarseness, Denies lip swelling, Denies nosebleed, Denies mouth lesions, Denies mouth pain, Denies nasal congestion, Denies nasal discharge, Denies nasal obstruction, Denies nasal trauma, Denies neck lump, Denies neck pain, Denies nose pain, Denies pain with swallowing, Denies poor balance, Denies post nasal drip, Denies ringing in the ears, Denies sinus pain, Denies sinus pressure , Denies sore throat, Denies throat swelling, Denies tongue swelling, Denies other Cardiovascular: Denies chest pain, Denies chest pain at rest, Denies chest pain with activity, Denies excessive sweating, Denies fainting, Denies fast heart rate, Denies foot swelling, Denies generalized swelling, Denies irregular heart rhythm, Denies leg pain with activity, Denies leg sores, Denies leg swelling, Denies lightheadedness, Denies radiating jaw, neck or arm pain, Denies rapid, pounding, or irregular heartbeat, Denies shortness of breath, Denies shortness of breath with activity, Denies shortness of breath when lying down, Denies shortness of breath causing sudden awakening, Denies slow heart rate, Denies other Respiratory: Denies change in phlegm color, Denies chest congestion, Denies cough, Denies coughing up blood, Denies excessive phlegm production, Denies pain on inspiration, Denies pain with cough, Denies shortness of breath, Denies shortness of breath with activity, Denies snoring, Denies stridor, Denies wheezing, Denies other Gastrointestinal: Reports change in bowel habits, Reports change in stools, Reports loose stools, Denies abdominal pain, Denies belching, Denies black, tarry stools, Denies bloating, Denies bright, red blood in stools, Denies constant urge to pass stool, Denies coffee ground vomit, Denies constipation, Denies cramping, Denies difficulty swallowing, Denies excessive passing of gas, Denies feeling full early, Denies heartburn, Denies incontinent of stools, Denies nausea, Denies pain with swallowing, Denies vomiting, Denies vomiting blood, Denies other Genitourinary: Denies blood in semen, Denies blood in urine, Denies decreased urination, Denies difficulty urinating, Denies difficulty with ejaculations, Denies erectile dysfunction, Denies genital lesions, Denies genital pain, Denies painful urination, Denies side pain, Denies frequent nighttime urination , Denies painful ejaculations, Denies penile discharge, Denies scrotal swelling , Denies testicle lump, Denies testicle pain, Denies urinary frequency, Denies urinary hesitancy, Denies urinary incontinence, Denies urinary urgency, Denies other Musculoskeletal: Denies abnormal walking, Denies back pain, Denies body aches, Denies decreased muscle mass, Denies deformity, Denies joint pain, Denies joint swelling, Denies limited joint movement, Denies loss of height, Denies muscle cramps, Denies muscle weakness, Denies neck pain, Denies numbness, Denies radiating pain into limb, Denies stiffness, Denies tingling, Denies other Skin/Breast: Denies acne, Denies bleeding lesions, Denies boil, Denies breast swelling, Denies breast skin changes, Denies breast pain, Denies breast lump, Denies change in breast shape, Denies change in hair, Denies change in skin color, Denies changing lesions, Denies dry skin, Denies excessive hair growth, Denies hair loss, Denies itching, Denies lesions, Denies nail changes, Denies new lesions, Denies nipple discharge, Denies non-healing lesions, Denies redness , Denies sensitivity to light, Denies rash, Denies skin pain, Denies skin ulcer , Denies sores, Denies stretch duran, Denies unusual bruising, Denies wounds, Denies yellowing of the skin, Denies other Neurologic: Denies abnormal hearing, Denies abnormal movements, Denies abnormal speech, Denies abnormal walking, Denies behavioral changes, Denies burning sensations, Denies confusion, Denies dizziness, Denies fainting, Denies frequent falls, Denies headache(s), Denies lack of coordination, Denies localized weakness, Denies loss of vision, Denies memory loss, Denies numbness, Denies other visual disturbances, Denies radiating pain, Denies restless legs, Denies convulsions, Denies seizure-like activity, Denies sensory deficit, Denies tingling, Denies tingling/numbness/burning sensations, Denies tremor(s), Denies unsteadiness, Denies weakness, Denies other Psychiatric: Denies abnormal sleep pattern, Denies anxiety, Denies behavioral changes, Denies change in appetite, Denies change in sex drive, Denies confusion , Denies depression, Denies difficulty concentrating, Denies hearing things others do not hear, Denies hopelessness, Denies irritability, Denies lack of enjoyment, Denies memory loss, Denies mood swings, Denies panic attacks, Denies paranoia, Denies seeing things others do not see, Denies sensing things others do not sense, Denies tactile hallucinations, Denies thoughts of hurting/killing others, Denies thoughts of hurting/killing yourself, Denies other Endocrine: Denies cold intolerance, Denies excessive sweating, Denies flushing, Denies heat intolerance, Denies increased hunger, Denies increased thirst, Denies increased urination, Denies rapid, pounding, or irregular heartbeat, Denies other Hematologic/Lymphatic: Denies easy bleeding, Denies easy bruising, Denies enlarged lymph nodes, Denies other Allergic/Immunologic: Denies GI upset with certain foods, Denies hives, Denies itchy eyes, Denies lip swelling, Denies seasonal runny nose, Denies throat swelling, Denies tongue swelling, Denies wheezing, Denies other PMFSH - History History Provided By: Patient - Medical History Medical History: Medical History (Last Reviewed 10/28/17 @ 17:20 by Wilmer Antoine) Clostridium difficile diarrhea Clostridium difficile infection Diverticulitis Hypertension S/P fecal transplant - Tobacco History Second Hand Smoke Exposure: No Tobacco Use In Past 30 Days: No Smoking Status: Never smoker - Alcohol History How Often Do You Have a Drink Containing Alcohol: 2 to 3 times a week - Substance Use History Substance History: Active Abuse - Substance Use Type Marijuana Status: Active Route Used: Inhalation Frequency: WEEKLY - Travel History Recent Travel in the [place] Within the Last 8 Weeks: No Recent Travel Out of the Country Within the Last 8 Weeks: No - Immunization History Tetanus Immunization: Unsure Hx Influenza Vaccine This Season: Yes Medications and Allergies Active Medications: Active Medications Hydrocodone Bitart/Acetaminophen ([place] 5/325) 1 tab PO Q4H PRN PRN Reason: PAIN SCALE 1 TO 5 Al Hydroxide/Mg Hydroxide (Milk Of Magnesia Liq) 30 ml PO Q12H PRN PRN Reason: Mild Constipation Albuterol (Duoneb Neb (Prn)) 1 ampul NEB Q2HR NEB PRN PRN Reason: WHEEZING Bisacodyl (Dulcolax Supp) 10 mg RECTAL DAILY PRN PRN Reason: SEVERE CONSITIPATION Chlorhexidine Gluconate (Chlorhexidine 2% Cloth) 3 pack TOPICAL DAILY@0400 ÁLVARO Stop: 11/03/17 03:59 Chlorhexidine Gluconate (Chlorhexidine 2% Cloth) 3 pack TOPICAL DAILY@0400 PRN PRN Reason: Extra cloth needed Stop: 11/03/17 03:59 Famotidine (Pepcid Pf Inj) 20 mg IV.PUSH Q12HR ÁLVARO Heparin Sodium (Porcine) (Heparin Inj) 5,000 units SQ Q8H ÁLVARO Metronidazole/Sodium Chloride (Flagyl 500 Mg Inj) 100 mls @ 100 mls/hr IV.SIG Q8H ÁLVARO Sodium Chloride (Ns Inj) 1,000 mls @ 200 mls/hr IV.CONT .Q5H ÁLVARO Piperacillin/Tazobactam/Dextrose (Zosyn 4.5 Gm Premix) 4.5 gm in 100 mls @ 200 mls/hr IV.SIG Q6H ÁLVARO Lactulose (Lactulose Liq) 30 ml PO DAILY PRN PRN Reason: SEVERE CONSITIPATION Morphine Sulfate (Morphine Inj) 2 mg IV.PUSH Q2H PRN PRN Reason: PAIN SCALE 6 TO 10 Ondansetron HCl (Zofran Inj) 4 mg IV.PUSH Q6H PRN PRN Reason: NAUSEA OR VOMITING Pharmacy Profile Note (Vancomycin Consult Pharmacy) 1 each OTHER ONCE ONE Stop: 10/28/17 21:06 Senna/Docusate Sodium (Liz-Colace) 1 tab PO BID COUNTS INCLUDE 234 BEDS AT THE [facility] Sennosides (Senokot) 17.2 mg PO Q12H PRN PRN Reason: Moderate Constipation Sodium Chloride (Ns Flush) 2 ml IV.FLUSH PRN PRN PRN Reason: FLUSH AFTER USING IV ACCESS Sodium Chloride (Ns Flush) 2 ml IV.FLUSH BID COUNTS INCLUDE 234 BEDS AT THE [facility] Sodium Chloride (Ns Flush) 2 ml IV.FLUSH PRN PRN PRN Reason: FLUSH AFTER USING IV ACCESS Allergies Allergy/AdvReac Type Severity Reaction Status Date / Time codeine Allergy Severe RASH Verified 08/28/17 14:07 ibuprofen Allergy Severe Swelling Verified 08/28/17 14:07 levofloxacin Allergy Severe ACHILLES Verified 08/28/17 14:07 TENDON PROBLEM metronidazole Allergy Severe Nausea/Vomi Verified 08/28/17 14:07 ting Results - Labs CBC & Chem 7: 10/28/17 17:10 10/28/17 17:10 Labs: Short CBC 10/28/17 Range/Units 17:10 WBC 16.0 H (4.0-11.0) th/mm3 Hgb 10.9 L (13.0-17.0) gm/dL Hct 31.4 L (39.0-51.0) % Plt Count 251 (150-450) th/mm3 BMP 10/28/17 17:10 Sodium 128 L Potassium 3.5 Chloride 89 L Carbon Dioxide 16.0 L BUN 81 H Creatinine 5.13 H Calcium 7.3 L* Liver Function 10/28/17 Range/Units 17:10 Total Bilirubin 0.5 (0.2-1.0) mg/dL AST 8 L (15-37) U/L ALT 13 (12-78) U/L Alkaline Phosphatase 64 (45-117) U/L Albumin 3.8 (3.4-5.0) g/dL Urine 10/28/17 Range/Units 19:44 Urine Color Yellow (Yellw/Straw) Urine Clarity Hazy H (Clear) Urine pH 5.0 (5.0-8.5) Ur Specific [place]yer 1.012 (1.002-1.035) Urine Protein Negative (Neg-Trace) mg/dL Urine Glucose (UA) Negative (Negative) mg/dL - Imaging Impressions Abdomen/Pelvis CT 10/28/17 16:27 CONCLUSION: No acute noncontrast CT findings in the abdomen or pelvis. Exam Vital signs: Vital Signs 10/28/17 16:34 10/28/17 20:39 10/28/17 20:40 Temperature 97.7 F Pulse Rate 107 H 118 H Respiratory Rate 23 22 Blood Pressure 104/83 154/86 H Pulse Oximetry 99 100 100 10/28/17 20:56 Temperature Pulse Rate 119 H Respiratory Rate Blood Pressure Pulse Oximetry Intake & Output 10/28/17 10/28/17 10/29/17 06:59 18:59 06:59 Weight 63.503 kg - Constitutional no acute distress - Routine HEENT Exam Head: Present: normocephalic, atraumatic Eye: Present: PERRL ENT: Present: mucous membranes dry - Routine Neck Exam Present: supple, full ROM. Absent: JVD, carotid bruit - Routine Chest/Breast/Axilla Exam Chest wall: Absent: tenderness - Routine Respiratory Exam Absent: accessory muscle use, rales, rhonchi, stridor, wheezes - Routine Cardiovascular Exam Present: RRR, S1, S2 - Routine Abdominal Exam Present: soft, normoactive bowel sounds - Routine Extremities Exam Absent: cyanosis, clubbing, edema - Routine Skin Exam Present: intact - Routine Neurological Exam Present: alert, oriented X3 Caprini VTE Risk Assessment Caprini VTE Risk Assessment: Moderate/High Risk (score >= 2) Caprini Risk Assessment Model: Point Value = 1 Point Value = 2 Point Value = 3 Point Value = 5 Age 41-60 Minor surgery BMI > 25 kg/m2 Swollen legs Varicose veins or History of unexplained or recurrent spontaneous Oral contraceptives or hormone replacement Sepsis (< 1 month) Serious lung disease, including pneumonia (< 1 month) Abnormal pulmonary function Acute myocardial infarction Congestive heart failure (< 1 month) History of inflammatory bowel disease Medical patient at bed rest Age 61-74 Arthroscopic surgery Major open surgery (> 45 min) Laparoscopic surgery (> 45 min) Malignancy Confined to bed (> 72 hours) Immobilizing plaster cast Central venous access Age >= 75 History of VTE Family history of VTE Factor V Leiden Prothrombin [id number] Lupus anticoagulant Anticardiolipin antibodies Elevated serum homocysteine Heparin-induced thrombocytopenia Other congenital or acquired thrombophilia Stroke (< 1 month) Elective arthroplasty Hip, pelvis, or leg fracture Acute spinal cord injury (< 1 month) Prophylaxis Regimen: Total Risk Factor Score Risk Level Prophylaxis Regimen 0-1 Low Early ambulation 2 Moderate Order ONE of the following: *Sequential Compression Device (SCD) *Heparin 5000 units SQ BID 3-4 Higher Order ONE of the following medications: *Heparin 5000 units SQ TID *Enoxaparin/Lovenox 40 mg SQ daily (WT < 150 kg, CrCl > 30 mL/min) *Enoxaparin/Lovenox 30 mg SQ daily (WT < 150 kg, CrCl > 10-29 mL/min) *Enoxaparin/Lovenox 30 mg SQ BID (WT < 150 kg, CrCl > 30 mL/min) AND/OR *Sequential Compression Device (SCD) 5 or more Highest Order ONE of the following medications: *Heparin 5000 units SQ TID (Preferred with Epidurals) *Enoxaparin/Lovenox 40 mg SQ daily (WT < 150 kg, CrCl > 30 mL/min) *Enoxaparin/Lovenox 30 mg SQ daily (WT < 150 kg, CrCl > 10-29 mL/min) *Enoxaparin/Lovenox 30 mg SQ BID (WT < 150 kg, CrCl > 30 mL/min) AND *Sequential Compression Device (SCD) Assessment and Plan - Assessment and Plan Plan: C Diff Colitis -Recurrent -Following with Dr. Kennedy as outpatient, on multiple courses of Vanc PO in light of allergy? to Flagyl -Status post recent fecal transplant -C Diff + -P.o. vancomycin -Follow IV Flagyl and monitor in the ICU for allergic reaction -consult Dr. Kennedy for further evaluation -consult ID -Resume home Colestipol and Lactobacillus -Isolation Special Contact C SHAVONNE -Severe dehydration -Aggressive IV fluid hydration -Strict I's and O's -Monitor and replace electrolytes per ICU protocol History of alcohol Abuse -Monitor for withdrawal -CIWA -Seizure Precautions DVT GI prophylaxis -Teds SCDs -Subcu heparin -IV Pepcid Critical Care: The total critical care time was 35 minutes. Time to perform other separately billable procedures was not included in the critical care time.
[2017-10-28] MEDS ORDERED: Piperacil/Tazo 2.25 GM Premix 50 ML IV.SIG SCH (22:00)
[2017-10-28] MEDS: Morphine Inj 4 MG/ML Vial IV.PUSH PRN (22:32)
[2017-10-28] MEDS: Heparin - SQ 10,000 UNITS/ML Vial SQ SCH (22:39)
[2017-10-28] MEDS ORDERED: Vancomycin Inj 1,250 MG in Sodium Chlor 0.9% Inj 250 ML IV.SIG ONE (23:00)
[2017-10-28] MEDS: Sod Chloride 0.9% Inj 1,000 ML IV.CONT SCH (23:37)
[2017-10-29] MEDS: Morphine Inj 4 MG/ML Vial IV.PUSH PRN ×6 (00:49→23:18)
[2017-10-29] MEDS ORDERED: Chlorhexidine Gluconate 2% 1 Pack (2 Cloths) TOPICAL PRN (04:00)
[2017-10-29] MEDS: Sod Chloride 0.9% Inj 1,000 ML IV.CONT SCH ×3 (04:22→21:09)
[2017-10-29 04:24] LABS: Baso % (Auto) 0.1 % (0.0-2.0); Hematocrit 29.9 % (39.0-51.0); Hemoglobin 9.9 gm/dL (13.0-17.0); Lymph # (Auto) 0.8 th/mm3 (1.0-4.8); Lymph % (Auto) 4.9 % (9.0-44.0); Mean Corpuscular Hemoglobin 28.4 pg (27.0-34.0); Mean Corpuscular Volume 85.9 fL (80.0-100.0); Mean Platelet Volume 8.8 fL (7.0-11.0); Mono # (Auto) 1.2 th/mm3 (0.0-0.9); Mono % (Auto) 7.4 % (0.0-8.0); Neut # (Auto) 14.6 th/mm3 (1.8-7.7); Neut % (Auto) 87.6 % (16.0-70.0); Platelet Count 253 th/mm3 (150-450); Red Blood Count 3.48 mil/mm3 (4.50-5.90); Red Cell Distribution Width 21.1 % (11.6-17.2); White Blood Count 16.7 th/mm3 (4.0-11.0)
[2017-10-29 04:31] LABS: Activated Partial Thrombo Time 26.5 sec (24.3-30.1); Prothrombin Time 10.3 sec (9.8-11.6)
[2017-10-29 04:57] LABS: Albumin 3.7 g/dL (3.4-5.0); Calcium 6.7 mg/dL (8.5-10.1); Carbon Dioxide 15.8 meq/L (21.0-32.0); Magnesium 0.8 mg/dL (1.5-2.5); Potassium 3.5 meq/L (3.5-5.1)
[2017-10-29 05:03] LABS: Phosphorus 5.6 mg/dL (2.5-4.9); Total Protein 7.2 g/dL (6.4-8.2)
[2017-10-29] MEDS ORDERED: Calcium Chloride Inj 2 GM in Sodium Chlor 0.9% Inj 100 ML IV.SIG SCH (06:00)
[2017-10-29] MEDS ORDERED: Calcium Gluconate Inj 2 GM in Sodium Chlor 0.9% Inj 100 ML IV.SIG ONE (06:00)
[2017-10-29] MEDS: Chlorhexidine Gluconate 2% 1 Pack (2 Cloths) TOPICAL SCH (06:29)
--- NOTE | 2017-10-29 08:33 | P.PNCC ---
Subjective Subjective Remarks/Hospital Course: 62-year-old gentleman with history of relapsing Clostridium difficile colitis, status post recent fecal transplant by Dr. Kennedy, presents today been with another onset of severe diarrhea. The patient denies fever chills, nausea, vomiting or any associated symptoms. 7/6 Patient reports feeling nauseous and having diarrhea. Afebrile. Renal function is improving with Cr: 3.4 from 5.1 yesterday. Objective Vital Signs / I&O: Vital Signs 10/28/17 16:34 10/28/17 20:39 10/28/17 20:40 Temperature 97.7 F Pulse Rate 107 H 118 H Respiratory Rate 23 22 Blood Pressure 104/83 154/86 H Pulse Oximetry 99 100 100 10/28/17 20:56 10/28/17 22:01 10/29/17 00:00 Temperature Pulse Rate 119 H 112 H 107 H Respiratory Rate 20 Blood Pressure 138/77 Pulse Oximetry 100 10/29/17 00:12 10/29/17 00:36 10/29/17 01:00 Temperature 98.2 F Pulse Rate 104 H 111 H Respiratory Rate 22 18 18 Blood Pressure 171/95 H 154/92 H Pulse Oximetry 94 L 98 10/29/17 02:00 10/29/17 03:00 10/29/17 04:00 Temperature Pulse Rate 110 H 105 H 108 H Respiratory Rate 17 17 25 H Blood Pressure 146/87 H 144/86 H 154/92 H Pulse Oximetry 98 96 100 10/29/17 05:00 10/29/17 06:00 Temperature Pulse Rate 104 H 107 H Respiratory Rate 17 14 Blood Pressure 137/83 150/87 H Pulse Oximetry 98 98 Intake & Output 10/28/17 10/29/17 10/29/17 18:59 06:59 18:59 Intake Total 993 / 993 Output Total 4 / 4 Balance 989 / 989 Weight 63.503 kg 68.5 kg Intake: IV 993 / 993 NS Inj 1,000 ML @ 200 mls/hr IV 993 / 993 .CONT .Q5H ÁLVARO Rx#:[id number] Oral 0 / 0 Output: Urine 0 / 0 Urine/Stool Mix 4 / 4 Other: # Voids 2 Date of Last Bowel Movement 10/29/17 # Bowel Movements 2 # Emeses 1 Weight On Admission 68.5 kg Result Diagrams: 10/29/17 04:04 10/29/17 04:04 Objective Remarks: GENERAL: Patient is 62 yo in no acute resp distress. SKIN: Warm and dry. HEAD: Normocephalic. EYES: No scleral icterus. No injection or drainage. NECK: Supple, trachea midline. No JVD or lymphadenopathy. CARDIOVASCULAR: Regular rate and rhythm without murmurs, gallops, or rubs. RESPIRATORY: Breath sounds equal bilaterally. No accessory muscle use. GASTROINTESTINAL: Abdomen soft, non-tender, nondistended. MUSCULOSKELETAL: No cyanosis, or edema. Neuro: Awake and alert. Assessment and Plan - Assessment and Plan Plan: 1)Resp Insuff 2)C Diff Colitis 30AKI 4)Dehydration 5)Leukocytosis 6)Hx History of alcohol Abuse 7)Anemia 8)Lactic acidosis- cleared. Plan Neuro: awake and alert Pulm: Continue with oxygen keep sats >92% CV: Monitor HR and BP keep MAP>65mmHg Lactic acid cleared 0.9 from 4.1, continue with IVF : Monitor renal function, I/O's, avoid nephrotoxins. Renal function is improving with Cr: 3.4 from 5.13 Continue with IVF-NS @100ml/hr GI: Keep NPO, continue with Pepcid -Following with Dr. Kennedy as outpatient, on multiple courses of Vanc PO- Status post recent fecal transplant consult Dr. Kennedy for further evaluation ID consulted ID : Continue with abx ( IV Flagyl, PO Vanco) monitor for signs of infections ( fever, WBC) CT abd/pelvis: No acute findings Heme: Monitor CBC Endo: SSI if needed for glycemic control DVT GI prophylaxis -Teds SCDs -Subcu heparin -IV Pepcid Level 3
[2017-10-29] MEDS ORDERED: Senna/Docusate Sodium 8.6/50 MG Tablet PO SCH (09:00)
[2017-10-29] MEDS: Famotidine PF Inj 20 MG/2 ML Vial IV.PUSH SCH ×2 (09:26→21:01)
[2017-10-29] MEDS: Heparin - SQ 10,000 UNITS/ML Vial SQ SCH ×3 (09:26→21:03)
--- NOTE | 2017-10-29 13:49 | P.CONID ---
History of Present Illness Service: Infectious disease Consult date: 10/29/17 Requesting Physician: Tulio Dennison Reason for Consult: Evaluate patient with severe sepsis Primary Care Provider: Yamil Collado DO Family Provider: Yamil Collado DO History of Present Illness: Patient seen and examined. Records reviewed. Patient is a 62-year-old male, presented to the hospital with acute onset of severe diarrhea. Patient was hospitalized recently back in August and was diagnosed to have diverticulitis along with C. difficile colitis. He had involvement of the left side of the colon and sigmoid colon. He has had multiple episodes of C. difficile colitis, and actually had 3 episodes of hospitalization in 2016, had an episode in June as well as in August 2017. When he was discharged he was on tapering doses of vancomycin, and his diarrhea actually has markedly improved. 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 It stopped , so he thought it might be just something that he ate. However the diarrhea started back again on the day of admission, and he has had intermittent abdominal pain. He is also had significant nausea and vomiting. He has had some chills but no documented fever. He has not been on any antibiotics recently other than the one when he was treated for diverticulitis back in August. On presentation here his white count was 16,000.. He is severely acidotic. Stool for C. difficile came back positive. CT of the abdomen and pelvis did not show any significant abnormality in his colon. Infectious disease consultation has been requested to evaluate the patient with recurrent C. difficile colitis. Review of Systems Constitutional: Reports chills, Denies fever(s) Eyes: Denies discharge, Denies pain Ears, Nose, Mouth, and Throat: Reports dizziness, Denies ear pain, Denies headache(s), Denies mouth pain, Denies pain with swallowing, Denies sore throat Cardiovascular: Denies chest pain, Denies shortness of breath Respiratory: Denies cough, Denies shortness of breath Gastrointestinal: Reports abdominal pain, Reports loose stools, Reports nausea, Reports vomiting, Denies pain with swallowing Genitourinary: Denies painful urination Musculoskeletal: Denies joint pain Skin/Breast: Denies rash Neurologic: Denies headache(s) PMFSH - History History Provided By: Patient - Medical History Medical History: Medical History (Last Updated 10/29/17 @ 13:43 by Yaa Kelly MD) Bacteremia due to Gram-negative bacteria Clostridium difficile diarrhea Clostridium difficile infection Diverticulitis GERD (gastroesophageal reflux disease) Herpes zoster History of diverticular abscess Hypertension Pancreatitis, alcoholic, acute S/P fecal transplant - Tobacco History Second Hand Smoke Exposure: No Tobacco Use In Past 30 Days: No Smoking Status: Never smoker - Alcohol History How Often Do You Have a Drink Containing Alcohol: 2 to 3 times a week - Substance Use History Substance History: Active Abuse - Substance Use Type Marijuana Status: Active Route Used: By Mouth Frequency: WEEKLY Last Used: T-2 Reason for Use: Feels Good, Socialization - Travel History Recent Travel in the [place] Within the Last 8 Weeks: No Recent Travel Out of the Country Within the Last 8 Weeks: No - Immunization History Tetanus Immunization: Unsure Hx Influenza Vaccine This Season: Yes Medications and Allergies Active Medications: Active Medications Hydrocodone Bitart/Acetaminophen ([place] 5/325) 1 tab PO Q4H PRN PRN Reason: PAIN SCALE 1 TO 5 Albuterol (Duoneb Neb (Prn)) 1 ampul NEB Q2HR NEB PRN PRN Reason: WHEEZING Bisacodyl (Dulcolax Supp) 10 mg RECTAL DAILY PRN PRN Reason: SEVERE CONSITIPATION Chlorhexidine Gluconate (Chlorhexidine 2% Cloth) 3 pack TOPICAL DAILY@0400 ÁLVARO Stop: 11/03/17 03:59 Last Admin: 10/29/17 06:29 Dose: 3 pack Chlorhexidine Gluconate (Chlorhexidine 2% Cloth) 3 pack TOPICAL DAILY@0400 PRN PRN Reason: Extra cloth needed Stop: 11/03/17 03:59 Famotidine (Pepcid Pf Inj) 20 mg IV.PUSH Q12HR [facility] Last Admin: 10/29/17 09:26 Dose: 20 mg Heparin Sodium (Porcine) (Heparin Inj) 5,000 units SQ Q8H [facility] Last Admin: 10/29/17 09:26 Dose: 5,000 units Metronidazole/Sodium Chloride (Flagyl 500 Mg Inj) 100 mls @ 100 mls/hr IV.SIG Q8H [facility] Last Admin: 10/29/17 09:25 Dose: Not Given Sodium Chloride (Ns Inj) 1,000 mls @ 100 mls/hr IV.CONT .Q10H [facility] Last Admin: 10/29/17 12:16 Dose: 100 mls/hr Morphine Sulfate (Morphine Inj) 2 mg IV.PUSH Q2H PRN PRN Reason: PAIN SCALE 6 TO 10 Last Admin: 10/29/17 08:30 Dose: 2 mg Ondansetron HCl (Zofran Odt) 4 mg PO Q4H PRN PRN Reason: NAUSEA OR VOMITING Last Admin: 10/29/17 08:30 Dose: 4 mg Sodium Chloride (Ns Flush) 2 ml IV.FLUSH PRN PRN PRN Reason: FLUSH AFTER USING IV ACCESS Sodium Chloride (Ns Flush) 2 ml IV.FLUSH BID [facility] Last Admin: 10/29/17 09:26 Dose: 2 ml Sodium Chloride (Ns Flush) 2 ml IV.FLUSH PRN PRN PRN Reason: FLUSH AFTER USING IV ACCESS Vancomycin HCl (Vancomycin Po) 250 mg PO QID [facility] Last Admin: 10/29/17 09:26 Dose: 250 mg Allergies Allergy/AdvReac Type Severity Reaction Status Date / Time codeine Allergy Severe RASH Verified 08/28/17 14:07 ibuprofen Allergy Severe Swelling Verified 08/28/17 14:07 levofloxacin Allergy Severe ACHILLES Verified 08/28/17 14:07 TENDON PROBLEM metronidazole Allergy Severe Nausea/Vomi Verified 08/28/17 14:07 ting Home Medications Medication Instructions Recorded Confirmed Type alprazolam PO BID 10/29/17 History lisinopril PO QDRHS 10/29/17 History Exam Vital signs: Vital Signs 10/28/17 16:34 10/28/17 20:39 10/28/17 20:40 Temperature 97.7 F Pulse Rate 107 H 118 H Respiratory Rate 23 22 Blood Pressure 104/83 154/86 H Pulse Oximetry 99 100 100 10/28/17 20:56 10/28/17 22:01 10/29/17 00:00 Temperature Pulse Rate 119 H 112 H 107 H Respiratory Rate 20 Blood Pressure 138/77 Pulse Oximetry 100 10/29/17 00:12 10/29/17 00:36 10/29/17 01:00 Temperature 98.2 F Pulse Rate 104 H 111 H Respiratory Rate 22 18 18 Blood Pressure 171/95 H 154/92 H Pulse Oximetry 94 L 98 10/29/17 02:00 10/29/17 03:00 07/06/18 04:00 Temperature Pulse Rate 110 H 105 H 108 H Respiratory Rate 17 17 25 H Blood Pressure 146/87 H 144/86 H 154/92 H Pulse Oximetry 98 96 100 10/29/17 05:00 10/29/17 06:00 10/29/17 07:00 Temperature Pulse Rate 104 H 107 H 102 H Respiratory Rate 17 14 14 Blood Pressure 137/83 150/87 H 141/88 H Pulse Oximetry 98 98 98 10/29/17 08:00 10/29/17 09:00 10/29/17 09:21 Temperature Pulse Rate 99 H 86 114 H Respiratory Rate 14 16 26 H Blood Pressure 164/93 H 185/105 H 170/105 H Pulse Oximetry 97 98 98 10/29/17 10:00 Temperature Pulse Rate 99 H Respiratory Rate 16 Blood Pressure 157/87 H Pulse Oximetry 97 Intake & Output 10/28/17 10/29/17 10/29/17 18:59 06:59 18:59 Intake Total 993 / 993 1000 / 1000 Output Total / 4 Balance 989 / 989 1000 / 1000 Weight 63.503 kg 68.5 kg Intake: IV 993 / 993 1000 / 1000 NS Inj 1,000 ML @ 100 mls/hr IV 993 / 993 1000 / 1000 .CONT .Q10H ÁLVARO Rx#:[id number] Oral 0 / 0 Output: Urine 0 / 0 Urine/Stool Mix Other: # Voids 2 Date of Last Bowel Movement 10/29/17 10/29/17 # Bowel Movements 2 # Emes[place] 1 Weight On Admission 68.5 kg Narrative: Physical Examination GENERAL: Patient is a well-nourished, well-developed male, awake and alert, not in respiratory distress. SKIN: Warm and dry. No generalized rash. Has ecchymoses in both UE. HEAD: Atraumatic. Normocephalic. No temporal wasting, or tenderness. EYES: [place] conjunctiva. No petechia or hemorrhage. Pupils equal, round and reactive to light. Extraocular movements full and intact. No scleral icterus. No injection or drainage. EARS, NOSE AND THROAT: Nose without bleeding or purulent nasal discharge. No sinus tenderness. Mucous membranes pink and moist. No oral lesions noted. No exudate. No oral thrush. NECK: Trachea midline. Supple and not tender, no meningeal signs CARDIOVASCULAR: Regular rate and rhythm. No murmurs, rubs or gallops heard RESPIRATORY: Clear to auscultation. Breath sounds equal bilaterally. No rales , wheezing or rhonchi ABDOMEN: Soft, mildly distended, diffuse tenderness, no guarding, no rebound. Bowel sounds present and normoactive. No organomegaly. EXTREMITIES: No clubbing, cyanosis, or edema. No joint effusion, has good ROM. No calf tenderness. Well perfused and warm. NEUROLOGICAL: Awake and alert. Cranial nerves grossly intact. Motor grossly within normal limits. PSYCHIATRIC: Normal affect, calm and cooperative. LINE: No evidence of infection Results - Labs CBC & Chem 7: 10/29/17 04:04 10/29/17 04:04 Labs: Laboratory Results - last 24 hr 10/28/17 10/28/17 10/28/17 17:10 17:10 17:10 WBC 16.0 H RBC 3.72 L Hgb 10.9 L Hct 31.4 L MCV 84.4 MCH 29.4 MCHC 34.8 RDW 21.3 H Plt Count 251 MPV 8.9 Neut % (Auto) 91.0 H Lymph % (Auto) 4.6 L Bond % (Auto) 4.2 Eos % (Auto) 0.0 Baso % (Auto) 0.2 Neut # (Auto) 14.5 H Lymph # (Auto) 0.7 L Bond # (Auto) 0.7 Eos # (Auto) 0.0 Baso # (Auto) 0.0 WBC Differential . Differential Comment Auto diff final PT INR APTT Sodium 128 L Potassium 3.5 Chloride 89 L Carbon Dioxide 16.0 L Anion Gap 23 H BUN 81 H Creatinine 5.13 H Estimated GFR 11 L Random Glucose 81 Lactic Acid 4.1 H* Calcium 7.3 L* Prot Corrected Calcium 7.1 L* Phosphorus Magnesium Total Bilirubin 0.5 AST 8 L ALT 13 Alkaline Phosphatase 64 Total Protein 7.7 Albumin 3.8 Lipase 307 Urine Color Urine Clarity Urine pH Ur Specific [place] Urine Protein Urine Glucose (UA) Urine Ketones Urine Occult Blood Urine Nitrate Urine Bilirubin Urine Urobilinogen Ur Leukocyte Esterase Urine RBC Urine WBC Ur Squamous Epith Cells Hyaline Casts Micro UA Comment Urine Culture Comments Nasal Screen MRSA (PCR) Stl C.difficile Tox PCR St C. diff Tox Epid 027 10/28/17 10/28/17 10/28/17 17:10 19:44 20:00 WBC RBC Hgb Hct MCV MCH MCHC RDW Plt Count MPV Neut % (Auto) Lymph % (Auto) Bond % (Auto) Eos % (Auto) Baso % (Auto) Neut # (Auto) Lymph # (Auto) Bond # (Auto) Eos # (Auto) Baso # (Auto) WBC Differential Differential Comment PT INR APTT Sodium Potassium Chloride Carbon Dioxide Anion Gap BUN Creatinine Estimated GFR Random Glucose Lactic Acid 2.3 H Calcium Prot Corrected Calcium Phosphorus Magnesium Total Bilirubin AST ALT Alkaline Phosphatase Total Protein Albumin Lipase Urine Color Yellow Urine Clarity Hazy H Urine pH 5.0 Ur Specific [place] 1.012 Urine Protein Negative Urine Glucose (UA) Negative Urine Ketones Negative Urine Occult Blood Small H Urine Nitrate Negative Urine Bilirubin Negative Urine Urobilinogen 2.0 H Ur Leukocyte Esterase Negative Urine RBC 1 Urine WBC 2 Ur Squamous Epith Cells 1 Hyaline Casts 1 Micro UA Comment Culture not ind Urine Culture Comments Culture not ind Nasal Screen MRSA (PCR) Stl C.difficile Tox PCR Positive H St C. diff Tox Epid 027 Negative 10/28/17 10/29/17 10/29/17 23:15 04:04 04:04 WBC 16.7 H RBC 3.48 L Hgb 9.9 L Hct 29.9 L MCV 85.9 MCH 28.4 MCHC 33.0 RDW 21.1 H Plt Count 253 MPV 8.8 Neut % (Auto) 87.6 H Lymph % (Auto) 4.9 L Bond % (Auto) 7.4 Eos % (Auto) 0.0 Baso % (Auto) 0.1 Neut # (Auto) 14.6 H Lymph # (Auto) 0.8 L Bond # (Auto) 1.2 H Eos # (Auto) 0.0 Baso # (Auto) 0.0 WBC Differential . Differential Comment Auto diff final PT 10.3 INR 1.0 APTT 26.5 Sodium Potassium Chloride Carbon Dioxide Anion Gap BUN Creatinine Estimated GFR Random Glucose Lactic Acid Calcium Prot Corrected Calcium Phosphorus Magnesium Total Bilirubin AST ALT Alkaline Phosphatase Total Protein Albumin Lipase Urine Color Urine Clarity Urine pH Ur Specific [place] Urine Protein Urine Glucose (UA) Urine Ketones Urine Occult Blood Urine Nitrate Urine Bilirubin Urine Urobilinogen Ur Leukocyte Esterase Urine RBC Urine WBC Ur Squamous Epith Cells Hyaline Casts Micro UA Comment Urine Culture Comments Nasal Screen MRSA (PCR) Not detected Stl C.difficile Tox PCR St C. diff Tox Epid 027 10/29/17 10/29/17 04:04 04:04 WBC RBC Hgb Hct MCV MCH MCHC RDW Plt Count MPV Neut % (Auto) Lymph % (Auto) Bond % (Auto) Eos % (Auto) Baso % (Auto) Neut # (Auto) Lymph # (Auto) Bond # (Auto) Eos # (Auto) Baso # (Auto) WBC Differential Differential Comment PT INR APTT Sodium 137 Potassium 3.5 Chloride 104 D Carbon Dioxide 15.8 L Anion Gap 17 H BUN 67 H Creatinine 3.40 H Estimated GFR 18 L Random Glucose 108 H Lactic Acid 0.9 Calcium 6.7 L* Prot Corrected Calcium 6.7 L* Phosphorus 5.6 H Magnesium 0.8 L Total Bilirubin 0.5 AST 23 ALT 15 Alkaline Phosphatase 61 Total Protein 7.2 Albumin 3.7 Lipase Urine Color Urine Clarity Urine pH Ur Specific [place] Urine Protein Urine Glucose (UA) Urine Ketones Urine Occult Blood Urine Nitrate Urine Bilirubin Urine Urobilinogen Ur Leukocyte Esterase Urine RBC Urine WBC Ur Squamous Epith Cells Hyaline Casts Micro UA Comment Urine Culture Comments Nasal Screen MRSA (PCR) Stl C.difficile Tox PCR St C. diff Tox Epid 027 - Imaging Impressions Abdomen/Pelvis CT 10/28/17 16:27 CONCLUSION: No acute noncontrast CT findings in the abdomen or pelvis. Assessment and Plan - Plan Impression Possible sepsis due to C difficile colitis Recurrent C difficile colitis - he improved after tapering po vanco and fecal transplant Renal insufficiency, due to diarrhea Acidosis due to to bicarb loss from diarrhea Leukocytosis Recommendation Fluid resuscitation Continue IV Flagyl Continue po Vanco increase to 500 Consider Asacol to help diarrhea if he does not have any further N/V Monitor progress Avoid other systemic Abx I will follow along with you Thank you for this consultation
--- NOTE | 2017-10-29 17:18 | MB ---
cc: Ton Marsh MD, Louis M MD DATE: 10/29/2017 REFERRING PHYSICIAN: Dr. Healy REASON FOR CONSULTATION: C. difficile colitis. 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 diff colitis. He has been followed by Dr. Miguel Kennedy. The patient states he has had multiple treatments with Flagyl and vancomycin. He states he tried Dificid once, but it did not seem to help. On 10/05, a few weeks ago, he underwent a fecal microbiota transplant by Dr. Kennedy. The patient states he was doing well until yesterday morning when he woke up with severe nausea, vomiting and diarrhea. He states he had at least 25 watery stools and became very weak and lightheaded. He was brought to the hospital and was found to be extremely dehydrated and in acute renal failure and a high white count. CT scan of the abdomen and pelvis was unremarkable. He has been started on IV Flagyl and oral vancomycin and is improving. He states he has not had any vomiting since this morning and he has not had any diarrhea since 11 o'clock this morning, which was about 6 hours ago. He does have diffuse moderate lower abdominal pain. SOCIAL HISTORY: The patient is single. He has grown children. 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 He does drink alcohol socially. He has never smoked cigarettes, but does smoke occasional marijuana. CURRENT MEDICATIONS: 1. [place] p.r.n. for the pain. 2. Famotidine 20 mg q.12 hours. 3. Flagyl 500 mg IV q.8 hours. 4. Vancomycin 500 mg p.o. 4 times a day. 5. Morphine 2 mg IV every 2 hours p.r.n. for pain 6. Zofran p.r.n. for nausea. ALLERGIES: HE IS ALLERGIC TO CODEINE, IBUPROFEN, LEVOFLOXACIN AND METRONIDAZOLE IS MENTIONED BUT I DO NOT BELIEVE HE HAS A TRUE ALLERGY TO THAT BUT JUST A GI INTOLERANCE. IT NEVER CAUSED RASH OR RESPIRATORY SYMPTOMS, JUST UPSET STOMACH WITH NAUSEA. PAST MEDICAL HISTORY: Extensive for many orthopedic procedures. He has had microdiscectomy and back surgery. He also had ruptured left Achilles tendon from taking Levaquin and that had to be repaired. He has had recurring C. dif infections for the past 3 years. He has a history of diverticulitis, history of hypertension. FAMILY HISTORY: Negative for inflammatory bowel disease. REVIEW OF SYSTEMS: Remarkable for the acute illness described above. He has chronic orthopedic issues, mostly related to his left Achilles rupture which has limited his activity. He states because of the reoccurring C. diff infection, he has not been able to get in as good a shape as he would like. The remainder of the 12-point review of systems was unremarkable. PHYSICAL EXAMINATION: GENERAL: Reveals a well-developed male in no acute distress. VITAL SIGNS: His blood pressure is 154/91, heart rate is 88, respirations are 14 and nonlabored. Temperature, I do not see it recorded. His O2 saturation is 99%. HEENT: Sclerae are anicteric. LUNGS: Grossly clear to auscultation. HEART: Sounds are regular. ABDOMEN: Slightly distended, soft with moderate diffuse tenderness. Bowel sounds are present to slightly hyperactive. EXTREMITIES: No peripheral edema. No cyanosis or clubbing. SKIN: Warm and dry. NEUROLOGIC: He was alert and oriented with a pleasant affect and very cooperative. LABORATORY DATA: Remarkable for a BUN yesterday of 81 with a creatinine of 5.13 which have improved to 67 and 3.40 respectively. His lactic acid was high on admission at 4.1, but has come down to 0.9. His LFTs are unremarkable. His white count is 16,700 with a left shift, hemoglobin 9.9. INR is 1.0. Urinalysis was unremarkable, except for small occult blood. C. diff toxin in the stool by PCR was positive. IMPRESSION: Recurrent C. difficile associated diarrhea. The patient is improving clinically with the oral vancomycin and IV Flagyl. Unfortunately, he appears to have had another relapse, despite fecal microbiota transplant. There is a monoclonal antibody for difficile that can be used in conjunction with the antibiotics called bezlotoxumab also known is zinplava, which is one time IV infusion, but it does not appear to be on formulary. This may reduce the risk of a reoccurrence. I was also able to briefly discuss the case with Dr. Kennedy, who did his stool transplant and if it reoccurs, he may be a candidate for a second fecal transplant. Infectious Disease is also on the case. Would consider checking for other bacterial and viral pathogens. According to up to date, there have been some reports of norovirus occurring after fecal microbiota transplant. Continue supportive medical care. We will follow with you. Thanks for this consult. MD NUSRAT Ghosh/ , 04:48 PM , 05:16 PM
[2017-10-29] MEDS ORDERED: Magnesium Sulfate Inj 2 GM in Sodium Chlor 0.9% Inj 96 ML IV.SIG ONE (22:09)
[2017-10-29] MEDS ORDERED: Calcium Chloride Inj 2 GM in Sodium Chlor 0.9% Inj 100 ML IV.SIG ONE (22:09)
[2017-10-30] MEDS: Morphine Inj 4 MG/ML Vial IV.PUSH PRN ×2 (03:13→20:58)
[2017-10-30] MEDS: Sod Chloride 0.9% Inj 1,000 ML IV.CONT SCH ×3 (05:53→10:35)
[2017-10-30] MEDS: Heparin - SQ 10,000 UNITS/ML Vial SQ SCH ×3 (05:58→20:58)
[2017-10-30] MEDS: Chlorhexidine Gluconate 2% 1 Pack (2 Cloths) TOPICAL SCH (05:59)
[2017-10-30 06:19] LABS: Baso % (Auto) 0.3 % (0.0-2.0); Eos % (Auto) 0.2 % (0.0-4.0); Hematocrit 29.8 % (39.0-51.0); Hemoglobin 9.7 gm/dL (13.0-17.0); Lymph # (Auto) 1.1 th/mm3 (1.0-4.8); Lymph % (Auto) 9.6 % (9.0-44.0); Mean Corpuscular HGB Conc 32.7 % (32.0-36.0); Mean Corpuscular Hemoglobin 28.5 pg (27.0-34.0); Mean Corpuscular Volume 87.3 fL (80.0-100.0); Mean Platelet Volume 9.4 fL (7.0-11.0); Mono # (Auto) 1.3 th/mm3 (0.0-0.9); Mono % (Auto) 11.8 % (0.0-8.0); Neut # (Auto) 8.8 th/mm3 (1.8-7.7); Neut % (Auto) 78.1 % (16.0-70.0); Platelet Count 197 th/mm3 (150-450); Red Blood Count 3.41 mil/mm3 (4.50-5.90); White Blood Count 11.3 th/mm3 (4.0-11.0)
[2017-10-30 06:48] LABS: Alanine Aminotransferase 16 U/L (12-78); Albumin 3.2 g/dL (3.4-5.0); Alkaline Phosphatase 60 U/L (45-117); Anion Gap 16 meq/L (5-15); Aspartate Aminotransferase 28 U/L (15-37); Blood Urea Nitrogen 40 mg/dL (7-18); Calcium 9.2 mg/dL (8.5-10.1); Carbon Dioxide 14.3 meq/L (21.0-32.0); Chloride 110 meq/L (98-107); Glomerular Filtration Rate 38 mL/min (>89); Glucose,Random 78 mg/dL (74-106); Potassium 3.6 meq/L (3.5-5.1); Sodium 140 meq/L (136-145); Total Protein 6.6 g/dL (6.4-8.2)
[2017-10-30] MEDS: Famotidine PF Inj 20 MG/2 ML Vial IV.PUSH SCH (08:07)
[2017-10-30] MEDS ORDERED: hydrALAZINE HCl Inj 20 MG/ML Vial IV.PUSH PRN (08:27)
--- NOTE | 2017-10-30 08:30 | P.PNCC ---
Subjective Subjective Remarks/Hospital Course: 62-year-old gentleman with history of relapsing Clostridium difficile colitis, status post recent fecal transplant by Dr. Kennedy, presents today been with another onset of severe diarrhea. The patient denies fever chills, nausea, vomiting or any associated symptoms. 10/29 Patient reports feeling nauseous and having diarrhea. Afebrile. Renal function is improving with Cr: 3.4 from 5.1 yesterday. 10/30 No events overnight. Renal function continue to improve with CR: 1.81 from 3.4, his GI symptoms ( Diarrhea, Nausea)overall better. WBC is trending down. Objective Vital Signs / I&O: Vital Signs 10/29/17 09:00 10/29/17 09:21 10/29/17 10:00 Temperature Pulse Rate 86 114 H 99 H Respiratory Rate 16 26 H 16 Blood Pressure 185/105 H 170/105 H 157/87 H Pulse Oximetry 98 98 97 10/29/17 11:00 10/29/17 12:00 10/29/17 13:00 Temperature Pulse Rate 81 72 91 H Respiratory Rate 16 16 16 Blood Pressure 150/72 H 135/69 149/80 H Pulse Oximetry 97 98 98 10/29/17 14:00 10/29/17 15:00 10/29/17 16:00 Temperature Pulse Rate 70 88 76 Respiratory Rate 19 14 14 Blood Pressure 158/82 H 154/91 H 139/86 Pulse Oximetry 99 99 98 10/29/17 17:00 10/29/17 18:00 10/29/17 19:00 Temperature Pulse Rate 94 H 98 H 96 H Respiratory Rate 23 27 H 23 Blood Pressure 167/91 H 169/96 H 146/84 H Pulse Oximetry 100 99 100 10/29/17 20:00 10/29/17 21:00 10/29/17 22:00 Temperature Pulse Rate 83 96 H 78 Respiratory Rate 11 L 22 13 Blood Pressure 146/75 H 154/98 H 139/85 Pulse Oximetry 98 100 98 10/29/17 23:00 10/30/17 00:00 10/30/17 01:00 Temperature Pulse Rate 81 77 63 Respiratory Rate 13 14 14 Blood Pressure 157/85 H 141/80 H 153/84 H Pulse Oximetry 100 99 94 L 10/30/17 02:00 10/30/17 03:00 10/30/17 03:05 Temperature Pulse Rate 85 113 H 102 H Respiratory Rate 14 11 L 19 Blood Pressure 170/89 H Pulse Oximetry 97 99 99 10/30/17 03:09 10/30/17 04:00 10/30/17 05:00 Temperature Pulse Rate 91 H 70 65 Respiratory Rate 14 12 10 L Blood Pressure 172/96 H 144/92 H 163/89 H Pulse Oximetry 100 96 98 10/30/17 06:00 10/30/17 07:00 Temperature 98.4 F Pulse Rate 68 87 Respiratory Rate 17 11 L Blood Pressure 162/90 H 161/96 H Pulse Oximetry 98 98 Intake & Output 10/29/17 10/30/17 10/30/17 18:59 06:59 18:59 Intake Total 6320 / 6320 2320 / 2320 1000 / 1000 Output Total Balance 6320 / 6320 2319 / 2319 1000 / 1000 Weight 66 kg Intake: IV 6120 / 6120 2220 / 2220 1000 / 1000 NS Inj 1,000 ML @ 100 mls/hr IV 1000 / 1000 2000 / 2000 1000 / 1000 .CONT .Q10H ÁLVARO Rx#:[id number] Calcium Chloride Inj 2 GM In NS 120 / 120 120 / 120 Inj 100 ML @ 120 mls/hr IV.SIG ONCE ONE Rx#:[id number] Magnesium Sulfate Inj 2 GM In 100 / 100 NS Inj 96 ML @ 50 mls/hr IV.SIG ONCE ONE Rx#:[id number] Oral 200 / 200 100 / 100 Output: Urine/Stool Mix Other: # Voids 4 4 Date of Last Bowel Movement 10/29/17 10/30/17 # Bowel Movements 5 # Emeses 3 1 Result Diagrams: 10/30/17 04:43 10/30/17 04:43 Objective Remarks: GENERAL: Patient is 62 yo in no acute resp distress. SKIN: Warm and dry. HEAD: Normocephalic. EYES: No scleral icterus. No injection or drainage. NECK: Supple, trachea midline. No JVD or lymphadenopathy. CARDIOVASCULAR: Regular rate and rhythm without murmurs, gallops, or rubs. RESPIRATORY: Breath sounds equal bilaterally. No accessory muscle use. GASTROINTESTINAL: Abdomen soft, non-tender, nondistended. MUSCULOSKELETAL: No cyanosis, or edema. Neuro: Awake and alert. Assessment and Plan - Assessment and Plan Plan: 1)Resp Insuff 2)C Diff Colitis 30AKI 4)Dehydration 5)Leukocytosis 6)Hx History of alcohol Abuse 7)Anemia 8)Lactic acidosis- cleared. 9)HTN Plan Neuro: awake and alert Pulm: Continue with oxygen keep sats >92% CV: Place on Lopressor 25mg BID for BP control. Monitor HR and BP keep MAP>65mmHg Lactic acid cleared 0.9 from 4.1, continue with IVF : Monitor renal function, I/O's, avoid nephrotoxins. Renal function is improving with Cr: 1.8 from 3.4 Continue with IVF-NS @100ml/hr GI: continue with Pepcid -Following with Dr. Kennedy as outpatient, on multiple courses of Vanc PO- Status post recent fecal transplant GI is following ID : Continue with abx ( IV Flagyl, PO Vanco, Asacol) monitor for signs of infections ( fever, WBC) WBC is trending down. CT abd/pelvis: No acute findings Heme: Monitor CBC Endo: SSI if needed for glycemic control DVT GI prophylaxis -Teds SCDs -Subcu heparin -IV Pepcid Will sign off and transfer care to [facility] Level 2
[2017-10-30] MEDS ORDERED: Metoprolol Tartrate 25 MG Tablet PO SCH (09:00)
--- NOTE | 2017-10-30 09:26 | P.PN ---
Physical Exam Vital signs: Vital Signs 10/29/17 09:21 10/29/17 10:00 10/29/17 11:00 Temperature Pulse Rate 114 H 99 H 81 Respiratory Rate 26 H 16 16 Blood Pressure 170/105 H 157/87 H 150/72 H Pulse Oximetry 98 97 97 10/29/17 12:00 10/29/17 13:00 10/29/17 14:00 Temperature Pulse Rate 72 91 H 70 Respiratory Rate 16 16 19 Blood Pressure 135/69 149/80 H 158/82 H Pulse Oximetry 98 98 99 10/29/17 15:00 10/29/17 16:00 10/29/17 17:00 Temperature Pulse Rate 88 76 94 H Respiratory Rate 14 14 23 Blood Pressure 154/91 H 139/86 167/91 H Pulse Oximetry 99 98 100 10/29/17 18:00 10/29/17 19:00 10/29/17 20:00 Temperature Pulse Rate 98 H 96 H 83 Respiratory Rate 27 H 23 11 L Blood Pressure 169/96 H 146/84 H 146/75 H Pulse Oximetry 99 100 98 10/29/17 21:00 10/29/17 22:00 10/29/17 23:00 Temperature Pulse Rate 96 H 78 81 Respiratory Rate 22 13 13 Blood Pressure 154/98 H 139/85 157/85 H Pulse Oximetry 100 98 100 10/30/17 00:00 10/30/17 01:00 10/30/17 02:00 Temperature Pulse Rate 77 63 85 Respiratory Rate 14 14 14 Blood Pressure 141/80 H 153/84 H 170/89 H Pulse Oximetry 99 94 L 97 10/30/17 03:00 10/30/17 03:05 10/30/17 03:09 Temperature Pulse Rate 113 H 102 H 91 H Respiratory Rate 11 L 19 14 Blood Pressure 172/96 H Pulse Oximetry 99 99 100 10/30/17 04:00 10/30/17 05:00 10/30/17 06:00 Temperature Pulse Rate 70 65 68 Respiratory Rate 12 10 L 17 Blood Pressure 144/92 H 163/89 H 162/90 H Pulse Oximetry 96 98 98 10/30/17 07:00 10/30/17 08:00 Temperature 98.4 F Pulse Rate 87 87 Respiratory Rate 11 L Blood Pressure 161/96 H Pulse Oximetry 98 98 Intake & Output 10/29/17 10/30/17 10/30/17 18:59 06:59 18:59 Intake Total 6320 / 6320 2320 / 2320 1000 / 1000 Output Total Balance 6320 / 6320 2319 / 2319 1000 / 1000 Weight 66 kg Intake: IV 6120 / 6120 2220 / 2220 1000 / 1000 NS Inj 1,000 ML @ 100 mls/hr IV 1000 / 1000 2000 / 2000 1000 / 1000 .CONT .Q10H ÁLVARO Rx#:[id number] Calcium Chloride Inj 2 GM In NS 120 / 120 120 / 120 Inj 100 ML @ 120 mls/hr IV.SIG ONCE ONE Rx#:[id number] Magnesium Sulfate Inj 2 GM In 100 / 100 NS Inj 96 ML @ 50 mls/hr IV.SIG ONCE ONE Rx#:[id number] Oral 200 / 200 100 / 100 Output: Urine/Stool Mix Other: # Voids 4 4 Date of Last Bowel Movement 10/29/17 10/30/17 10/30/17 # Bowel Movements 5 # Emeses 3 1 - Constitutional no acute distress Comments: no diarrhea today feels weak and tired - Routine HEENT Exam ENT: Present: mucous membranes dry - Routine Neck Exam Present: supple - Routine Respiratory Exam Present: CTA bilaterally - Routine Cardiovascular Exam Present: RRR, S1, S2 - Routine Abdominal Exam Present: soft - Detailed Abdominal Exam Bowel sounds: high-pitched - Routine Skin Exam Present: intact, dry - Routine Neurological Exam Present: alert, oriented X3 Results - Labs CBC & Chem 7: 10/30/17 04:43 10/30/17 04:43 Laboratory Results - last 24 hr 10/30/17 10/30/17 04:43 04:43 WBC 11.3 H RBC 3.41 L Hgb 9.7 L Hct 29.8 L MCV 87.3 MCH 28.5 MCHC 32.7 RDW 21.0 H Plt Count 197 MPV 9.4 Neut % (Auto) 78.1 H Lymph % (Auto) 9.6 [place] % (Auto) 11.8 H Eos % (Auto) 0.2 Baso % (Auto) 0.3 Neut # (Auto) 8.8 H Lymph # (Auto) 1.1 [place] # (Auto) 1.3 H Eos # (Auto) 0.0 Baso # (Auto) 0.0 WBC Differential . Differential Comment Auto diff final Sodium 140 Potassium 3.6 Chloride 110 H Carbon Dioxide 14.3 L Anion Gap 16 H BUN 40 H Creatinine 1.81 H Estimated GFR 38 L Random Glucose 78 Calcium 9.2 D Total Bilirubin 0.6 AST 28 ALT 16 Alkaline Phosphatase 60 Total Protein 6.6 D Albumin 3.2 L Random Vancomycin Less than 0.8 Microbiology 10/28/17 22:00 Blood - Peripheral Aerobic Blood Culture - Preliminary No growth in 1 day 10/28/17 22:00 Blood - Peripheral Anaerobic Blood Culture - Preliminary No growth in 1 day 10/28/17 21:40 Blood - Peripheral Aerobic Blood Culture - Preliminary No growth in 1 day 10/28/17 21:40 Blood - Peripheral Anaerobic Blood Culture - Preliminary No growth in 1 day 10/29/17 03:45 Sputum - Expectorated Sputum Gram Stain - Final Assessment and Plan - Assessment (1) Diarrhea Code(s): R19.7 - Diarrhea, unspecified Status: Acute - Attending Attestation Continue present therapy as per ID with [place] and flagyl advance to clear liquids po as tolerated 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 monoclonal antibody therapy (1) Diarrhea Qualifiers: Diarrhea type: infectious Qualified Code(s): A09 - Infectious gastroenteritis and colitis, unspecified
[2017-10-30] MEDS: Metoprolol Tartrate 25 MG Tablet PO SCH ×2 (11:49→20:57)
[2017-10-30] MEDS: ALPRAZolam 0.5 MG Tablet PO PRN (22:51)
[2017-10-31] MEDS: Morphine Inj 4 MG/ML Vial IV.PUSH PRN ×3 (00:36→14:49)
[2017-10-31 05:42] LABS: Baso # (Auto) 0.1 th/mm3 (0.0-0.2); Baso % (Auto) 0.8 % (0.0-2.0); Eos # (Auto) 0.1 th/mm3 (0.0-0.4); Eos % (Auto) 1.1 % (0.0-4.0); Hematocrit 28.7 % (39.0-51.0); Hemoglobin 9.5 gm/dL (13.0-17.0); Lymph # (Auto) 2.3 th/mm3 (1.0-4.8); Lymph % (Auto) 20.6 % (9.0-44.0); Mean Corpuscular HGB Conc 33.1 % (32.0-36.0); Mean Corpuscular Hemoglobin 28.3 pg (27.0-34.0); Mean Corpuscular Volume 85.6 fL (80.0-100.0); Mean Platelet Volume 9.2 fL (7.0-11.0); Mono # (Auto) 1.4 th/mm3 (0.0-0.9); Mono % (Auto) 12.5 % (0.0-8.0); Neut # (Auto) 7.2 th/mm3 (1.8-7.7); Platelet Count 196 th/mm3 (150-450); Red Blood Count 3.36 mil/mm3 (4.50-5.90); Red Cell Distribution Width 20.9 % (11.6-17.2); White Blood Count 11.1 th/mm3 (4.0-11.0)
[2017-10-31 06:08] LABS: Alanine Aminotransferase 26 U/L (12-78); Albumin 3.3 g/dL (3.4-5.0); Alkaline Phosphatase 92 U/L (45-117); Anion Gap 12 meq/L (5-15); Aspartate Aminotransferase 51 U/L (15-37); Blood Urea Nitrogen 23 mg/dL (7-18); Calcium 8.5 mg/dL (8.5-10.1); Carbon Dioxide 18.6 meq/L (21.0-32.0); Chloride 106 meq/L (98-107); Glomerular Filtration Rate 49 mL/min (>89); Glucose,Random 99 mg/dL (74-106); Potassium 3.3 meq/L (3.5-5.1); Sodium 137 meq/L (136-145); Total Protein 6.8 g/dL (6.4-8.2)
[2017-10-31] MEDS: Sod Chloride 0.9% Inj 1,000 ML IV.CONT SCH ×3 (06:18→13:35)
[2017-10-31] MEDS: Chlorhexidine Gluconate 2% 1 Pack (2 Cloths) TOPICAL SCH (06:20)
[2017-10-31] MEDS: Famotidine PF Inj 20 MG/2 ML Vial IV.PUSH SCH ×2 (06:20→09:22)
[2017-10-31] MEDS: Metoprolol Tartrate 25 MG Tablet PO SCH ×2 (09:22→21:00)
--- NOTE | 2017-10-31 10:34 | P.PNIM ---
Subjective Interval history: This will be Mr. Adams's 10th C. difficile colitis episode. 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 Diarrhea has some improvement today. Physical Exam Vital signs: Vital Signs 10/30/17 11:00 10/30/17 12:00 10/30/17 12:01 Temperature 98.5 F Pulse Rate 60 125 H 121 H Respiratory Rate 15 28 H 24 Blood Pressure 159/81 H 159/101 H 171/101 H Pulse Oximetry 98 100 100 10/30/17 12:04 10/30/17 12:12 10/30/17 13:00 Temperature Pulse Rate 116 H 120 H 69 Respiratory Rate 15 25 H 12 Blood Pressure 167/101 H 153/92 H 163/83 H Pulse Oximetry 100 99 98 10/30/17 14:00 10/30/17 15:00 10/30/17 16:00 Temperature 98.4 F Pulse Rate 77 78 74 Respiratory Rate 12 16 20 Blood Pressure 164/87 H 155/88 H 141/84 H Pulse Oximetry 100 100 99 10/30/17 17:00 10/30/17 18:00 10/30/17 18:02 Temperature Pulse Rate 77 89 95 H Respiratory Rate 28 H 16 17 Blood Pressure 157/87 H 168/100 H 142/91 H Pulse Oximetry 99 100 100 10/30/17 19:00 10/30/17 19:54 10/30/17 20:00 Temperature 98.2 F Pulse Rate 111 H 97 H 88 Respiratory Rate 18 14 20 Blood Pressure 178/86 H 175/90 H 154/84 H Pulse Oximetry 98 99 100 10/30/17 21:00 10/30/17 22:00 10/30/17 23:00 Temperature Pulse Rate 78 80 67 Respiratory Rate 23 17 18 Blood Pressure 173/93 H 163/93 H 160/90 H Pulse Oximetry 100 99 96 10/31/17 00:00 10/31/17 01:00 10/31/17 02:00 Temperature Pulse Rate 82 91 H 68 Respiratory Rate 16 34 H 17 Blood Pressure 172/90 H 165/93 H 150/90 H Pulse Oximetry 99 100 95 10/31/17 03:00 10/31/17 04:00 10/31/17 04:16 Temperature Pulse Rate 69 77 105 H Respiratory Rate 13 9 L 20 Blood Pressure 156/90 H 185/101 H 174/104 H Pulse Oximetry 97 100 99 10/31/17 04:46 10/31/17 05:00 10/31/17 06:00 Temperature Pulse Rate 102 H 74 72 Respiratory Rate 50 H 15 Blood Pressure 171/98 H 152/88 H Pulse Oximetry 99 98 10/31/17 08:00 10/31/17 10:00 Temperature 98.6 F Pulse Rate 82 82 Respiratory Rate 16 Blood Pressure 137/85 Pulse Oximetry 98 Intake & Output 10/30/17 10/31/17 10/31/17 18:59 06:59 18:59 Intake Total 2099 / 2099 2480 / 2480 Output Total / Balance 2096 / 2096 2480 / 2480 Weight 67 kg Intake: IV 1999 NS Inj 1,000 ML @ 100 mls/hr IV 1999 .CONT .Q10H ÁLVARO Rx#:[id number] Oral 100 / 100 480 / 480 Output: Urine 0 / 0 Urine/Stool Mix Other: # Voids 4 4 Date of Last Bowel Movement 10/30/17 10/31/17 10/31/17 # Bowel Movements 5 1 # Emeses 0 - Routine HEENT Exam Comments: GENERAL: NAD, A&Ox3 HEAD: Normocephalic. NECK: Supple, trachea midline. No lymphadenopathy. EYES: No scleral icterus. No injection or drainage. CARDIOVASCULAR: Regular rate and rhythm without murmurs, gallops, or rubs. RESPIRATORY: Breath sounds equal bilaterally. No accessory muscle use. GASTROINTESTINAL: Abdomen soft, non-tender, nondistended. MUSCULOSKELETAL: No cyanosis, or edema. SKIN: Warm and dry. NEURO: No focal neurological deficits. Results - Labs CBC & Chem 7: 10/31/17 04:23 10/31/17 04:23 Laboratory Results - last 24 hr 10/31/17 10/31/17 04:23 04:23 WBC 11.1 H RBC 3.36 L Hgb 9.5 L Hct 28.7 L MCV 85.6 MCH 28.3 MCHC 33.1 RDW 20.9 H Plt Count 196 MPV 9.2 Neut % (Auto) 65.0 Lymph % (Auto) 20.6 [place] % (Auto) 12.5 H Eos % (Auto) 1.1 Baso % (Auto) 0.8 Neut # (Auto) 7.2 Lymph # (Auto) 2.3 [place] # (Auto) 1.4 H Eos # (Auto) 0.1 Baso # (Auto) 0.1 WBC Differential . Differential Comment Auto diff final Sodium 137 Potassium 3.3 L Chloride 106 Carbon Dioxide 18.6 L Anion Gap 12 BUN 23 H Creatinine 1.46 H Estimated GFR 49 L Random Glucose 99 Calcium 8.5 Total Bilirubin 0.8 AST 51 H ALT 26 Alkaline Phosphatase 92 Total Protein 6.8 Albumin 3.3 L Microbiology 10/29/17 03:45 Sputum - Expectorated Sputum Gram Stain - Final 10/29/17 03:45 Sputum - Expectorated Sputum Sputum Culture - Preliminary Heavy growth normal respiratory stan at 24 hours 10/28/17 22:00 Blood - Peripheral Aerobic Blood Culture - Preliminary No growth in 2 days 10/28/17 22:00 Blood - Peripheral Anaerobic Blood Culture - Preliminary No growth in 2 days 10/28/17 21:40 Blood - Peripheral Aerobic Blood Culture - Preliminary No growth in 2 days 10/28/17 21:40 Blood - Peripheral Anaerobic Blood Culture - Preliminary No growth in 2 days 10/29/17 04:10 Clean Catch Urine Urine Culture - Preliminary No growth in 24 hours Assessment and Plan - Assessment (1) C. difficile colitis Code(s): A04.72 - Enterocolitis due to Clostridium difficile, not specified as recurrent Status: Acute (2) C. difficile colitis Code(s): A04.72 - Enterocolitis due to Clostridium difficile, not specified as recurrent Status: Acute - Plan 62-year-old male admitted secondary to C. difficile colitis with severe dehydration, acute kidney injury, and respiratory compromise and sepsis. C. difficile colitis Leukocytosis Continue IV Flagyl and p.o. vancomycin Continue Asacol Follow CBC Gastroenterology following Dehydration acute kidney injury Improved with rehydration Continue to monitor BUN and creatinine Continue IV hydration Resp Insuff Resolved Patient has returned to baseline Anemia Follow CBC Hypertension Continue baseline treatment Follow blood pressures Adjust treatments as needed History of alcohol abuse Patient no longer abuses alcohol DVT prophylaxis SCDs and heparin
--- NOTE | 2017-10-31 13:46 | P.PN ---
Subjective Interval history: Pt feeling better wants to go home diarrhea less Physical Exam Vital signs: Vital Signs 10/30/17 14:00 10/30/17 15:00 10/30/17 16:00 Temperature 98.4 F Pulse Rate 77 78 74 Respiratory Rate 12 16 20 Blood Pressure 164/87 H 155/88 H 141/84 H Pulse Oximetry 100 100 99 10/30/17 17:00 10/30/17 18:00 10/30/17 18:02 Temperature Pulse Rate 77 89 95 H Respiratory Rate 28 H 16 17 Blood Pressure 157/87 H 168/100 H 142/91 H Pulse Oximetry 99 100 100 10/30/17 19:00 10/30/17 19:54 10/30/17 20:00 Temperature 98.2 F Pulse Rate 111 H 97 H 88 Respiratory Rate 18 14 20 Blood Pressure 178/86 H 175/90 H 154/84 H Pulse Oximetry 98 99 100 10/30/17 21:00 10/30/17 22:00 10/30/17 23:00 Temperature Pulse Rate 78 80 67 Respiratory Rate 23 17 18 Blood Pressure 173/93 H 163/93 H 160/90 H Pulse Oximetry 100 99 96 10/31/17 00:00 10/31/17 01:00 10/31/17 02:00 Temperature Pulse Rate 82 91 H 68 Respiratory Rate 16 34 H 17 Blood Pressure 172/90 H 165/93 H 150/90 H Pulse Oximetry 99 100 95 10/31/17 03:00 10/31/17 04:00 10/31/17 04:16 Temperature Pulse Rate 69 77 105 H Respiratory Rate 13 9 L 20 Blood Pressure 156/90 H 185/101 H 174/104 H Pulse Oximetry 97 100 99 10/31/17 04:46 10/31/17 05:00 10/31/17 06:00 Temperature Pulse Rate 102 H 74 72 Respiratory Rate 50 H 15 Blood Pressure 171/98 H 152/88 H Pulse Oximetry 99 98 10/31/17 08:00 10/31/17 10:00 10/31/17 12:00 Temperature 98.6 F 98.4 F Pulse Rate 82 82 82 Respiratory Rate 16 16 Blood Pressure 137/85 156/72 H Pulse Oximetry 98 Intake & Output 10/30/17 10/31/17 10/31/17 18:59 06:59 18:59 Intake Total 2099 2480 / 2480 0 / 0 Output Total Balance 2096 / 2096 2480 / 2480 0 / 0 Weight 67 kg Intake: IV 1999 0 / 0 NS Inj 1,000 ML @ 100 mls/hr IV 1999 0 / 0 .CONT .Q10H ÁLVARO Rx#:[id number] Oral 100 / 100 480 / 480 Output: Urine 0 / 0 Urine/Stool Mix Other: # Voids 4 4 Date of Last Bowel Movement 10/30/17 10/31/17 10/31/17 # Bowel Movements 5 1 # Emeses 0 - Constitutional no acute distress - Routine Cardiovascular Exam Present: RRR, S1, S2 - Routine Abdominal Exam Present: soft, normoactive bowel sounds. Absent: tenderness - Routine Extremities Exam Absent: edema Results - Labs CBC & Chem 7: 10/31/17 04:23 10/31/17 04:23 Laboratory Results - last 24 hr 10/31/17 10/31/17 04:23 04:23 WBC 11.1 H RBC 3.36 L Hgb 9.5 L Hct 28.7 L MCV 85.6 MCH 28.3 MCHC 33.1 RDW 20.9 H Plt Count 196 MPV 9.2 Neut % (Auto) 65.0 Lymph % (Auto) 20.6 [place] % (Auto) 12.5 H Eos % (Auto) 1.1 Baso % (Auto) 0.8 Neut # (Auto) 7.2 Lymph # (Auto) 2.3 [place] # (Auto) 1.4 H Eos # (Auto) 0.1 Baso # (Auto) 0.1 WBC Differential . Differential Comment Auto diff final Sodium 137 Potassium 3.3 L Chloride 106 Carbon Dioxide 18.6 L Anion Gap 12 BUN 23 H Creatinine 1.46 H Estimated GFR 49 L Random Glucose 99 Calcium 8.5 Total Bilirubin 0.8 AST 51 H ALT 26 Alkaline Phosphatase 92 Total Protein 6.8 Albumin 3.3 L Microbiology 10/29/17 03:45 Sputum - Expectorated Sputum Gram Stain - Final 10/29/17 03:45 Sputum - Expectorated Sputum Sputum Culture - Final Heavy growth normal respiratory stan 10/28/17 22:00 Blood - Peripheral Aerobic Blood Culture - Preliminary No growth in 3 days 10/28/17 22:00 Blood - Peripheral Anaerobic Blood Culture - Preliminary No growth in 3 days 10/28/17 21:40 Blood - Peripheral Aerobic Blood Culture - Preliminary No growth in 3 days 10/28/17 21:40 Blood - Peripheral Anaerobic Blood Culture - Preliminary No growth in 3 days 10/29/17 04:10 Clean Catch Urine Urine Culture - Final No growth in 48 hours Assessment and Plan - Assessment (1) Diarrhea Code(s): R19.7 - Diarrhea, unspecified Status: Acute (2) C. difficile colitis Code(s): A04.72 - Enterocolitis due to Clostridium difficile, not specified as recurrent Status: Acute - Plan Continue present therapy w vanco and or flagyl .... ok for d/c and outpt follow up w Dr abdi to discuss further options discussed w pt (1) Diarrhea Qualifiers: Diarrhea type: infectious Qualified Code(s): A09 - Infectious gastroenteritis and colitis, unspecified
[2017-10-31] MEDS: Heparin - SQ 10,000 UNITS/ML Vial SQ SCH ×4 (14:18→21:00)
--- NOTE | 2017-10-31 18:09 | P.PN ---
Physical Exam Vital signs: Vital Signs 10/30/17 19:00 10/30/17 19:54 10/30/17 20:00 Temperature 98.2 F Pulse Rate 111 H 97 H 88 Respiratory Rate 18 14 20 Blood Pressure 178/86 H 175/90 H 154/84 H Pulse Oximetry 98 99 100 10/30/17 21:00 10/30/17 22:00 10/30/17 23:00 Temperature Pulse Rate 78 80 67 Respiratory Rate 23 17 18 Blood Pressure 173/93 H 163/93 H 160/90 H Pulse Oximetry 100 99 96 10/31/17 00:00 10/31/17 01:00 10/31/17 02:00 Temperature Pulse Rate 82 91 H 68 Respiratory Rate 16 34 H 17 Blood Pressure 172/90 H 165/93 H 150/90 H Pulse Oximetry 99 100 95 10/31/17 03:00 10/31/17 04:00 10/31/17 04:16 Temperature Pulse Rate 69 77 105 H Respiratory Rate 13 9 L 20 Blood Pressure 156/90 H 185/101 H 174/104 H Pulse Oximetry 97 100 99 10/31/17 04:46 10/31/17 05:00 10/31/17 06:00 Temperature Pulse Rate 102 H 74 72 Respiratory Rate 50 H 15 Blood Pressure 171/98 H 152/88 H Pulse Oximetry 99 98 10/31/17 08:00 10/31/17 10:00 10/31/17 12:00 Temperature 98.6 F 98.4 F Pulse Rate 82 82 82 Respiratory Rate 16 16 Blood Pressure 137/85 156/72 H Pulse Oximetry 98 10/31/17 14:00 Temperature Pulse Rate 81 Respiratory Rate Blood Pressure Pulse Oximetry Intake & Output 10/30/17 10/31/17 10/31/17 18:59 06:59 18:59 Intake Total 2200 / 2200 2480 / 2480 480 / 480 Output Total 3 3 1201 / 1201 Balance 2197 / 2197 2480 / 2480 -721 / -721 Weight 67 kg Intake: IV 2099 0 / 0 NS Inj 1,000 ML @ 100 mls/hr IV 1999 0 / 0 .CONT .Q10H ÁLVARO Rx#:[id number] Flagyl 500 MG Inj 100 ML @ 100 100 / 100 mls/hr IV.SIG Q8H ÁLVARO Rx#: [id number] Oral 100 / 100 480 / 480 480 / 480 Output: Urine 0 / 0 1200 / 1200 Urine/Stool Mix Other: # Voids 4 4 4 Date of Last Bowel Movement 10/30/17 10/31/17 10/31/17 # Bowel Movements 5 1 1 # Emeses 0 0 Results - Labs CBC & Chem 7: 10/31/17 04:23 10/31/17 04:23 Laboratory Results - last 24 hr 10/31/17 10/31/17 04:23 04:23 WBC 11.1 H RBC 3.36 L Hgb 9.5 L Hct 28.7 L MCV 85.6 MCH 28.3 MCHC 33.1 RDW 20.9 H Plt Count 196 MPV 9.2 Neut % (Auto) 65.0 Lymph % (Auto) 20.6 [place] % (Auto) 12.5 H Eos % (Auto) 1.1 Baso % (Auto) 0.8 Neut # (Auto) 7.2 Lymph # (Auto) 2.3 [place] # (Auto) 1.4 H Eos # (Auto) 0.1 Baso # (Auto) 0.1 WBC Differential . Differential Comment Auto diff final Sodium 137 Potassium 3.3 L Chloride 106 Carbon Dioxide 18.6 L Anion Gap 12 BUN 23 H Creatinine 1.46 H Estimated GFR 49 L Random Glucose 99 Calcium 8.5 Total Bilirubin 0.8 AST 51 H ALT 26 Alkaline Phosphatase 92 Total Protein 6.8 Albumin 3.3 L Microbiology 10/29/17 03:45 Sputum - Expectorated Sputum Gram Stain - Final 10/29/17 03:45 Sputum - Expectorated Sputum Sputum Culture - Final Heavy growth normal respiratory stan 10/28/17 22:00 Blood - Peripheral Aerobic Blood Culture - Preliminary No growth in 3 days 10/28/17 22:00 Blood - Peripheral Anaerobic Blood Culture - Preliminary No growth in 3 days 10/28/17 21:40 Blood - Peripheral Aerobic Blood Culture - Preliminary No growth in 3 days 10/28/17 21:40 Blood - Peripheral Anaerobic Blood Culture - Preliminary No growth in 3 days 10/29/17 04:10 Clean Catch Urine Urine Culture - Final No growth in 48 hours - Imaging ITS Impressions Abdomen/Pelvis CT 10/28/17 16:27 CONCLUSION: No acute noncontrast CT findings in the abdomen or pelvis. Microbiology 10/29/17 03:45 Sputum - Expectorated Sputum Gram Stain - Final 10/29/17 03:45 Sputum - Expectorated Sputum Sputum Culture - Final Heavy growth normal respiratory stan 10/28/17 22:00 Blood - Peripheral Aerobic Blood Culture - Preliminary No growth in 3 days 10/28/17 22:00 Blood - Peripheral Anaerobic Blood Culture - Preliminary No growth in 3 days 10/28/17 21:40 Blood - Peripheral Aerobic Blood Culture - Preliminary No growth in 3 days 10/28/17 21:40 Blood - Peripheral Anaerobic Blood Culture - Preliminary No growth in 3 days 10/29/17 04:10 Clean Catch Urine Urine Culture - Final No growth in 48 hours - Procedures none Assessment and Plan - Assessment (1) C. difficile colitis Code(s): A04.72 - Enterocolitis due to Clostridium difficile, not specified as recurrent Status: Acute (2) SHAVONNE (acute kidney injury) Code(s): N17.9 - Acute kidney failure, unspecified Status: Acute (3) Anemia Code(s): D64.9 - Anemia, unspecified Status: Acute - Plan 62-year-old male admitted secondary to C. difficile colitis with severe dehydration, acute kidney injury, and respiratory compromise and sepsis. C. difficile colitis Leukocytosis Continue IV Flagyl and p.o. vancomycin Continue Asacol Follow CBC Gastroenterology following Dehydration acute kidney injury Improved with rehydration Continue to monitor BUN and creatinine Continue IV hydration Resp Insuff Resolved Patient has returned to baseline Anemia w/o acute blood loss Follow CBC Hypertension Continue baseline treatment Follow blood pressures Adjust treatments as needed History of alcohol abuse Patient no longer abuses alcohol DVT prophylaxis SQ Heparin
--- NOTE | 2017-10-31 18:18 | P.DCO ---
- Physical Therapy Order: Evaluate and treat, Improve ambulation, Strength and gait training - Certification I have seen patient Rahul Adams on 10/31/17. My clinical findings support the need for the requested home health care services because: Deconditioned with increased weakness I certify that my clinical findings support that this patient is homebound because: Need for psychosocial assistance
[2017-10-31] MEDS: ALPRAZolam 0.5 MG Tablet PO PRN (21:08)
[2017-11-01 00:26] LABS: Creatine Kinase 255 U/L (39-308)
[2017-11-01] MEDS: Sod Chloride 0.9% Inj 1,000 ML IV.CONT SCH (01:55)
[2017-11-01] MEDS: Heparin - SQ 10,000 UNITS/ML Vial SQ SCH ×3 (06:15→21:00)
[2017-11-01] MEDS: Chlorhexidine Gluconate 2% 1 Pack (2 Cloths) TOPICAL SCH (06:15)
[2017-11-01] MEDS: Metoprolol Tartrate 25 MG Tablet PO SCH ×2 (07:59→20:56)
[2017-11-01 08:36] LABS: Baso # (Auto) 0.1 th/mm3 (0.0-0.2); Baso % (Auto) 0.8 % (0.0-2.0); Eos # (Auto) 0.1 th/mm3 (0.0-0.4); Eos % (Auto) 1.1 % (0.0-4.0); Hematocrit 28.1 % (39.0-51.0); Hemoglobin 9.4 gm/dL (13.0-17.0); Lymph # (Auto) 1.6 th/mm3 (1.0-4.8); Lymph % (Auto) 21.2 % (9.0-44.0); Mean Corpuscular HGB Conc 33.2 % (32.0-36.0); Mean Corpuscular Hemoglobin 28.7 pg (27.0-34.0); Mean Corpuscular Volume 86.2 fL (80.0-100.0); Mean Platelet Volume 8.8 fL (7.0-11.0); Mono # (Auto) 0.9 th/mm3 (0.0-0.9); Mono % (Auto) 12.3 % (0.0-8.0); Neut # (Auto) 4.9 th/mm3 (1.8-7.7); Neut % (Auto) 64.6 % (16.0-70.0); Platelet Count 187 th/mm3 (150-450); Red Blood Count 3.26 mil/mm3 (4.50-5.90); Red Cell Distribution Width 20.4 % (11.6-17.2); White Blood Count 7.5 th/mm3 (4.0-11.0)
[2017-11-01 09:08] LABS: Albumin 3.3 g/dL (3.4-5.0); Anion Gap 15 meq/L (5-15); Aspartate Aminotransferase 32 U/L (15-37); Blood Urea Nitrogen 13 mg/dL (7-18); Calcium 8.1 mg/dL (8.5-10.1); Carbon Dioxide 19.7 meq/L (21.0-32.0); Chloride 103 meq/L (98-107); Glomerular Filtration Rate 63 mL/min (>89); Glucose,Random 86 mg/dL (74-106); Potassium 3.2 meq/L (3.5-5.1); Sodium 138 meq/L (136-145)
[2017-11-01 09:09] LABS: Alanine Aminotransferase 33 U/L (12-78)
[2017-11-01 09:11] LABS: Alkaline Phosphatase 92 U/L (45-117); Total Protein 6.6 g/dL (6.4-8.2)
--- NOTE | 2017-11-01 10:28 | P.PNID ---
Subjective Remarks: Patient is a 62-year-old male, presented to the hospital with acute onset of severe diarrhea. Patient was hospitalized recently back in August and was diagnosed to have diverticulitis along with C. difficile colitis. He had involvement of the left side of the colon and sigmoid colon. He has had multiple episodes of C. difficile colitis, and actually had 3 episodes of hospitalization in 2016, had an episode in June as well as in August 2017. When he was discharged he was on tapering doses of vancomycin, and his diarrhea actually has markedly improved. 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 It stopped , so he thought it might be just something that he ate. However the diarrhea started back again on the day of admission, and he has had intermittent abdominal pain. He is also had significant nausea and vomiting. He has had some chills but no documented fever. He has not been on any antibiotics recently other than the one when he was treated for diverticulitis back in August. On presentation here his white count was 16,000.. He is severely acidotic. Stool for C. difficile came back positive. CT of the abdomen and pelvis did not show any significant abnormality in his colon. Infectious disease consultation has been requested to evaluate the patient with recurrent C. difficile colitis. Notes reviewed Temps ok Had first solid food thsi morning, had 6-7 diarrhea No vomiting WBC down to normal Creatinine better Antibiotics: Flagyl Vancomycin Lines: No evidence of infection Past Medical History: Bacteremia due to Gram-negative bacteria Clostridium difficile diarrhea Clostridium difficile infection Diverticulitis GERD (gastroesophageal reflux disease) Herpes zoster History of diverticular abscess Hypertension Pancreatitis, alcoholic, acute S/P fecal transplant Allergies/Adverse Reactions: Allergies codeine Allergy (Severe, Verified 08/28/17 14:07) RASH ibuprofen Allergy (Severe, Verified 08/28/17 14:07) Swelling of eyes levofloxacin Allergy (Severe, Verified 08/28/17 14:07) ACHILLES TENDON PROBLEM metronidazole Allergy (Severe, Verified 08/28/17 14:07) Nausea/Vomiting Objective Vital Signs 10/31/17 12:00 10/31/17 14:00 10/31/17 20:22 Temperature 98.4 F 97.6 F Pulse Rate 82 81 99 H Respiratory Rate 16 17 Blood Pressure 156/72 H 164/96 H Pulse Oximetry 97 11/01/17 00:27 Temperature 97.5 F L Pulse Rate 75 Respiratory Rate 16 Blood Pressure 170/96 H Pulse Oximetry 97 Intake & Output 10/31/17 11/01/17 11/01/17 18:59 06:59 18:59 Intake Total 480 / 480 880 / 880 Output Total 1201 / 1201 Balance -721 / -721 880 / 880 Weight 67 kg Intake: IV 0 / 0 100 / 100 NS Inj 1,000 ML @ 100 mls/hr IV 0 / 0 .CONT .Q10H ÁLVARO Rx#:[id number] Flagyl 500 MG Inj 100 ML @ 100 100 / 100 mls/hr IV.SIG Q8H ÁLVARO Rx#: [id number] Oral 480 / 480 780 / 780 Output: Urine 1200 / 1200 Urine/Stool Mix Other: # Voids 4 4 Date of Last Bowel Movement 10/31/17 # Bowel Movements 1 # Emeses 0 10/29/17 03:45 Sputum - Expectorated Sputum Gram Stain - Final 10/29/17 03:45 Sputum - Expectorated Sputum Sputum Culture - Final Heavy growth normal respiratory stan 10/28/17 22:00 Blood - Peripheral Aerobic Blood Culture - Preliminary No growth in 3 days 10/28/17 22:00 Blood - Peripheral Anaerobic Blood Culture - Preliminary No growth in 3 days 10/28/17 21:40 Blood - Peripheral Aerobic Blood Culture - Preliminary No growth in 3 days 10/28/17 21:40 Blood - Peripheral Anaerobic Blood Culture - Preliminary No growth in 3 days 10/29/17 04:10 Clean Catch Urine Urine Culture - Final No growth in 48 hours Lab - Hematology Results 10/31/17 11/01/17 04:23 07:52 WBC 11.1 H 7.5 RBC 3.36 L 3.26 L Hgb 9.5 L 9.4 L Hct 28.7 L 28.1 L MCV 85.6 86.2 MCH 28.3 28.7 MCHC 33.1 33.2 RDW 20.9 H 20.4 H Plt Count 196 187 MPV 9.2 8.8 Neut % (Auto) 65.0 64.6 Lymph % (Auto) 20.6 21.2 [place] % (Auto) 12.5 H 12.3 H Eos % (Auto) 1.1 1.1 Baso % (Auto) 0.8 0.8 Neut # (Auto) 7.2 4.9 Lymph # (Auto) 2.3 1.6 [place] # (Auto) 1.4 H 0.9 Eos # (Auto) 0.1 0.1 Baso # (Auto) 0.1 0.1 WBC Differential . . Differential Comment Auto diff final Auto diff final Lab - Chemistry Results 10/31/17 11/01/17 04:23 07:52 Sodium 137 138 Potassium 3.3 L 3.2 L Chloride 106 103 Carbon Dioxide 18.6 L 19.7 L Anion Gap 12 15 BUN 23 H 13 Creatinine 1.46 H 1.17 Estimated GFR 49 L 63 L Random Glucose 99 86 Calcium 8.5 8.1 L Total Bilirubin 0.8 0.4 AST 51 H 32 ALT 26 33 Alkaline Phosphatase 92 92 Total Creatine Kinase 255 Total Protein 6.8 6.6 Albumin 3.3 L 3.3 L Imaging: ITS Impressions Abdomen/Pelvis CT 10/28/17 16:27 CONCLUSION: No acute noncontrast CT findings in the abdomen or pelvis. Physical Exam: Physical Examination GENERAL: Patient is a well-nourished, well-developed male, awake and alert, not in respiratory distress. SKIN: Warm and dry. No generalized rash. Has ecchymoses in both UE. HEAD: Atraumatic. Normocephalic. No temporal wasting, or tenderness. EYES: [place] conjunctiva. No petechia or hemorrhage. Pupils equal, round and reactive to light. Extraocular movements full and intact. No scleral icterus. No injection or drainage. EARS, NOSE AND THROAT: Nose without bleeding or purulent nasal discharge. No sinus tenderness. Mucous membranes pink and moist. No oral lesions noted. No exudate. No oral thrush. NECK: Trachea midline. Supple and not tender, no meningeal signs CARDIOVASCULAR: Regular rate and rhythm. No murmurs, rubs or gallops heard RESPIRATORY: Clear to auscultation. Breath sounds equal bilaterally. No rales , wheezing or rhonchi ABDOMEN: Soft, mildly distended, diffuse tenderness, no guarding, no rebound. Bowel sounds present and normoactive. No organomegaly. EXTREMITIES: No clubbing, cyanosis, or edema. No joint effusion, has good ROM. No calf tenderness. Well perfused and warm. NEUROLOGICAL: Awake and alert. Cranial nerves grossly intact. Motor grossly within normal limits. PSYCHIATRIC: Normal affect, calm and cooperative. LINE: No evidence of infection Assessment and Plan - Plan Impression Possible sepsis due to C difficile colitis Recurrent C difficile colitis - he improved after tapering po vanco and fecal transplant Renal insufficiency, due to diarrhea, better Acidosis due to to bicarb loss from diarrhea Leukocytosis better Recommendation Continue IV Flagyl Continue po Vanco increase to 500 mg QID - give 14 days then start taper Monitor progress Avoid other systemic Abx Monitor diarrhea mandy with increas po intake
[2017-11-01] MEDS: amLODIPine 5 MG Tablet PO SCH (10:52)
--- NOTE | 2017-11-01 12:24 | P.PN ---
Subjective Interval history: Follow-up recurrent C. difficile. Continues to have loose stools already had 8 episodes today denies nausea and abdominal pain. Has been refusing Flagyl will alert infectious disease Physical Exam Vital signs: Vital Signs 10/31/17 14:00 10/31/17 20:22 11/01/17 00:27 Temperature 97.6 F 97.5 F L Pulse Rate 81 99 H 75 Respiratory Rate 17 16 Blood Pressure 164/96 H 170/96 H Pulse Oximetry 97 97 Intake & Output 10/31/17 11/01/17 11/01/17 18:59 06:59 18:59 Intake Total 480 / 480 880 / 880 Output Total 1201 / 1201 Balance -721 / -721 880 / 880 Weight 67 kg Intake: IV 0 / 0 100 / 100 NS Inj 1,000 ML @ 100 mls/hr IV 0 / 0 .CONT .Q10H ÁLVARO Rx#:[id number] Flagyl 500 MG Inj 100 ML @ 100 100 / 100 mls/hr IV.SIG Q8H ÁLVARO Rx#: [id number] Oral 480 / 480 780 / 780 Output: Urine 1200 / 1200 Urine/Stool Mix Other: # Voids 4 4 Date of Last Bowel Movement 10/31/17 # Bowel Movements 1 # Emeses 0 Narrative: GENERAL: This is a well-nourished, well-developed patient, in no apparent distress. No signs of dehydration CARDIOVASCULAR: Regular rate and rhythm without murmurs, gallops, or rubs. RESPIRATORY: Clear to auscultation. Breath sounds equal bilaterally. No wheezes , rales, or rhonchi. GASTROINTESTINAL: Abdomen soft, lower abdominal tenderness, nondistended. Normal active bowel sounds MUSCULOSKELETAL: Extremities without clubbing, cyanosis, or edema. NEURO: Alert & Oriented x4 to person, place, time, situation. Moves all ext x4 Results - Labs CBC & Chem 7: 11/01/17 07:52 11/01/17 07:52 Laboratory Results - last 24 hr 10/31/17 11/01/17 11/01/17 04:23 07:52 07:52 WBC 7.5 RBC 3.26 L Hgb 9.4 L Hct 28.1 L MCV 86.2 MCH 28.7 MCHC 33.2 RDW 20.4 H Plt Count 187 MPV 8.8 Neut % (Auto) 64.6 Lymph % (Auto) 21.2 [place] % (Auto) 12.3 H Eos % (Auto) 1.1 Baso % (Auto) 0.8 Neut # (Auto) 4.9 Lymph # (Auto) 1.6 [place] # (Auto) 0.9 Eos # (Auto) 0.1 Baso # (Auto) 0.1 WBC Differential . Differential Comment Auto diff final Sodium 137 138 Potassium 3.3 L 3.2 L Chloride 106 103 Carbon Dioxide 18.6 L 19.7 L Anion Gap 12 15 BUN 23 H 13 Creatinine 1.46 H 1.17 Estimated GFR 49 L 63 L Random Glucose 99 86 Calcium 8.5 8.1 L Total Bilirubin 0.8 0.4 AST 51 H 32 ALT 26 33 Alkaline Phosphatase 92 92 Total Creatine Kinase 255 Total Protein 6.8 6.6 Albumin 3.3 L 3.3 L Microbiology 10/28/17 22:00 Blood - Peripheral Aerobic Blood Culture - Preliminary No growth in 4 days 10/28/17 22:00 Blood - Peripheral Anaerobic Blood Culture - Preliminary No growth in 4 days 10/28/17 21:40 Blood - Peripheral Aerobic Blood Culture - Preliminary No growth in 4 days 10/28/17 21:40 Blood - Peripheral Anaerobic Blood Culture - Preliminary No growth in 4 days 10/29/17 03:45 Sputum - Expectorated Sputum Gram Stain - Final 10/29/17 03:45 Sputum - Expectorated Sputum Sputum Culture - Final Heavy growth normal respiratory stan 10/29/17 04:10 Clean Catch Urine Urine Culture - Final No growth in 48 hours - Procedures none Assessment and Plan - Assessment (1) C. difficile colitis Code(s): A04.72 - Enterocolitis due to Clostridium difficile, not specified as recurrent Status: Acute (2) SHAVONNE (acute kidney injury) Code(s): N17.9 - Acute kidney failure, unspecified Status: Acute (3) Anemia Code(s): D64.9 - Anemia, unspecified Status: Acute - Plan 62-year-old male admitted secondary to C. difficile colitis with severe dehydration, acute kidney injury, and respiratory compromise and sepsis. C. difficile colitis with persistent diarrhea. 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 Resolved Continue p.o. vancomycin. Will discontinue Flagyl patient refusing thinks it is causing nausea and vomiting. Will alert infectious disease Gastroenterology following Dehydration acute kidney injury with hypokalemia and hypomagnesemia Improved with rehydration Continue to monitor electrolytes, BUN and creatinine. Continue IV hydration and electrolyte replacement Resp Insuff Resolved Patient has returned to baseline Anemia w/o acute blood loss Follow CBC Hypertension Continue baseline treatment Follow blood pressures Adjust treatments as needed History of alcohol abuse Patient no longer abuses alcohol DVT prophylaxis SQ Heparin
[2017-11-01] MEDS: Morphine Inj 4 MG/ML Vial IV.PUSH PRN ×2 (12:25→17:43)
[2017-11-02 00:06] LABS: Magnesium 0.6 mg/dL (1.5-2.5); Phosphorus 1.5 mg/dL (2.5-4.9)
[2017-11-02] MEDS: Chlorhexidine Gluconate 2% 1 Pack (2 Cloths) TOPICAL SCH (04:12)
[2017-11-02] MEDS: Heparin - SQ 10,000 UNITS/ML Vial SQ SCH ×3 (05:21→22:40)
[2017-11-02] MEDS: amLODIPine 5 MG Tablet PO SCH (08:00)
[2017-11-02] MEDS: Metoprolol Tartrate 25 MG Tablet PO SCH ×2 (08:00→22:40)
[2017-11-02 11:47] LABS: Carbon Dioxide 17.4 meq/L (21.0-32.0); Magnesium 0.8 mg/dL (1.5-2.5); Potassium 3.6 meq/L (3.5-5.1)
[2017-11-02] MEDS ORDERED: Potassium Phosphate Inj 30 MMOL in Sodium Chlor 0.9% Inj 250 ML IV.SIG ONE (13:53)
--- NOTE | 2017-11-02 13:53 | P.PN ---
Subjective Interval history: Follow-up C. difficile. Afraid to have regular diet because of increased diarrhea. Usual abdominal pain. Also vomited yesterday. Refuse Flagyl because he thought it caused nausea, vomiting and diarrhea. Physical Exam Vital signs: Vital Signs 11/01/17 16:00 11/01/17 20:00 11/02/17 00:00 Temperature 98.0 F 97.4 F L 97 F L Pulse Rate 87 75 72 Respiratory Rate 16 17 17 Blood Pressure 142/85 H 154/86 H 131/61 Pulse Oximetry 100 99 98 11/02/17 08:00 11/02/17 12:00 Temperature 98.7 F 97.9 F Pulse Rate 82 62 Respiratory Rate 18 18 Blood Pressure 143/86 H 132/77 Pulse Oximetry 97 99 Intake & Output 11/01/17 11/02/17 11/02/17 18:59 06:59 18:59 Intake Total 1700 / 1700 1220 / 1220 Balance 1700 / 1700 1220 / 1220 Intake: IV 100 / 100 980 / 980 NS + KCl 20 mEq Inj 1,000 ML @ 980 / 980 100 mls/hr IV.CONT .Q10H ÁLVARO Rx #:[id number] NS Inj 1,000 ML @ 100 mls/hr IV 100 / 100 .CONT .Q10H ÁLVARO Rx#:[id number] Oral 1600 / 1600 240 / 240 Other: # Voids 5 2 Date of Last Bowel Movement 11/02/17 # Bowel Movements 4 Narrative: GENERAL: This is a well-nourished, well-developed patient, in no apparent distress. No signs of dehydration CARDIOVASCULAR: Regular rate and rhythm without murmurs, gallops, or rubs. RESPIRATORY: Clear to auscultation. Breath sounds equal bilaterally. No wheezes , rales, or rhonchi. GASTROINTESTINAL: Abdomen soft, lower abdominal tenderness, nondistended. Normal active bowel sounds MUSCULOSKELETAL: Extremities without clubbing, cyanosis, or edema. NEURO: Alert & Oriented x4 to person, place, time, situation. Moves all ext x4 Results - Labs CBC & Chem 7: 11/01/17 07:52 11/02/17 10:40 Laboratory Results - last 24 hr 11/01/17 11/02/17 07:52 10:40 Sodium 138 139 Potassium 3.2 L 3.6 Chloride 103 108 H Carbon Dioxide 19.7 L 17.4 L Anion Gap 15 14 BUN 13 10 Creatinine 1.17 1.09 Estimated GFR 63 L 68 L Random Glucose 86 90 Calcium 8.1 L 8.0 L Phosphorus 1.5 L Magnesium 0.6 L 0.8 L Total Bilirubin 0.4 AST 32 ALT 33 Alkaline Phosphatase 92 Total Protein 6.6 Albumin 3.3 L Microbiology 10/28/17 22:00 Blood - Peripheral Aerobic Blood Culture - Final No growth in 5 days 10/28/17 22:00 Blood - Peripheral Anaerobic Blood Culture - Final No growth in 5 days 10/28/17 21:40 Blood - Peripheral Aerobic Blood Culture - Final No growth in 5 days 10/28/17 21:40 Blood - Peripheral Anaerobic Blood Culture - Final No growth in 5 days - Procedures none Assessment and Plan - Assessment (1) C. difficile colitis Code(s): A04.72 - Enterocolitis due to Clostridium difficile, not specified as recurrent Status: Acute (2) SHAVONNE (acute kidney injury) Code(s): N17.9 - Acute kidney failure, unspecified Status: Acute (3) Anemia Code(s): D64.9 - Anemia, unspecified Status: Acute - Plan 62-year-old male admitted secondary to C. difficile colitis with severe dehydration, acute kidney injury, and respiratory compromise and sepsis. C. difficile colitis with persistent diarrhea. 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 Resolved Persistent diarrhea. Continue p.o. vancomycin. Dc Flagyl patient refusing thinks it is causing nausea and vomiting. Will alert infectious disease is Gastroenterology will be reconsulted Dehydration acute kidney injury with hypokalemia and hypomagnesemia Improved with rehydration Continue to monitor electrolytes, BUN and creatinine. Continue IV hydration and electrolyte replacement Resp Insuff Resolved Patient has returned to baseline Anemia w/o acute blood loss Follow CBC Hypertension Continue baseline treatment Follow blood pressures Adjust treatments as needed History of alcohol abuse Patient no longer abuses alcohol DVT prophylaxis SQ Heparin Discharge Planning: not ready for dc with ongoing diarrhea
[2017-11-02] MEDS: Potassium Phos/Sodium Phos 250 MG Tablet PO SCH (17:40)
[2017-11-02] MEDS: Mag Sulf 1 gm/100 ml Premix 100 ML IV.SIG SCH ×2 (19:43→22:39)
[2017-11-02] MEDS ORDERED: Mag Sulf 1 gm/100 ml Premix 100 ML IV.SIG ONE (22:00)
[2017-11-02] MEDS: guaiFENesin 600 MG ER Tablet PO SCH (22:40)
[2017-11-02] MEDS: ALPRAZolam 0.5 MG Tablet PO PRN (22:49)
[2017-11-02] MEDS: Morphine Inj 4 MG/ML Vial IV.PUSH PRN (22:53)
[2017-11-03] MEDS: Heparin - SQ 10,000 UNITS/ML Vial SQ SCH ×3 (05:57→21:24)
[2017-11-03] MEDS: amLODIPine 5 MG Tablet PO SCH (09:34)
[2017-11-03] MEDS: guaiFENesin 600 MG ER Tablet PO SCH ×2 (09:34→21:25)
[2017-11-03] MEDS: Metoprolol Tartrate 25 MG Tablet PO SCH ×2 (09:34→21:25)
[2017-11-03] MEDS: Potassium Phos/Sodium Phos 250 MG Tablet PO SCH ×3 (09:34→18:01)
[2017-11-03 09:54] LABS: Calcium 7.8 mg/dL (8.5-10.1); Carbon Dioxide 17.1 meq/L (21.0-32.0); Magnesium 1.3 mg/dL (1.5-2.5)
[2017-11-03 09:56] LABS: Phosphorus 2.7 mg/dL (2.5-4.9)
[2017-11-03 10:16] LABS: Potassium 3.8 meq/L (3.5-5.1)
--- NOTE | 2017-11-03 14:35 | P.PNID ---
Subjective Remarks: Patient is a 62-year-old male, presented to the hospital with acute onset of severe diarrhea. Patient was hospitalized recently back in August and was diagnosed to have diverticulitis along with C. difficile colitis. He had involvement of the left side of the colon and sigmoid colon. He has had multiple episodes of C. difficile colitis, and actually had 3 episodes of hospitalization in 2016, had an episode in June as well as in August 2017. When he was discharged he was on tapering doses of vancomycin, and his diarrhea actually has markedly improved. 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 It stopped , so he thought it might be just something that he ate. However the diarrhea started back again on the day of admission, and he has had intermittent abdominal pain. He is also had significant nausea and vomiting. He has had some chills but no documented fever. He has not been on any antibiotics recently other than the one when he was treated for diverticulitis back in August. On presentation here his white count was 16,000.. He is severely acidotic. Stool for C. difficile came back positive. CT of the abdomen and pelvis did not show any significant abnormality in his colon. Infectious disease consultation has been requested to evaluate the patient with recurrent C. difficile colitis. Notes reviewed Temps ok Bad time yesterday - a lot of diarrhea yesterday throughout night, and also had 3 vomiting early AM So far has tolerated some soft food for breakfast C/O abdominal pain WBC down to normal Creatinine better Antibiotics: Vancomycin Lines: No evidence of infection Past Medical History: Bacteremia due to Gram-negative bacteria Clostridium difficile diarrhea Clostridium difficile infection Diverticulitis GERD (gastroesophageal reflux disease) Herpes zoster History of diverticular abscess Hypertension Pancreatitis, alcoholic, acute S/P fecal transplant Allergies/Adverse Reactions: Allergies codeine Allergy (Severe, Verified 08/28/17 14:07) RASH ibuprofen Allergy (Severe, Verified 08/28/17 14:07) Swelling of eyes levofloxacin Allergy (Severe, Verified 08/28/17 14:07) ACHILLES TENDON PROBLEM metronidazole Allergy (Severe, Verified 08/28/17 14:07) Nausea/Vomiting Objective Vital Signs 11/02/17 16:00 11/03/17 00:00 11/03/17 08:00 Temperature 97.9 F 98 F 97.8 F Pulse Rate 70 74 67 Respiratory Rate 16 17 18 Blood Pressure 149/87 H 154/87 H 121/78 Pulse Oximetry 100 100 Intake & Output 11/02/17 11/03/17 11/03/17 18:59 06:59 18:59 Intake Total 1200 / 1200 1240 / 1240 Output Total 3 / 3 Balance 1200 / 1200 1237 / 1237 Intake: IV 1000 / 1000 NS + KCl 20 mEq Inj 1,000 ML @ 1000 / 1000 100 mls/hr IV.CONT .Q10H ÁLVARO Rx #:[id number] Oral 1200 / 1200 240 / 240 Output: Urine 3 Other: # Voids 6 Date of Last Bowel Movement 11/02/17 # Bowel Movements 20 3 10/28/17 21:40 Blood - Peripheral Aerobic Blood Culture - Final No growth in 5 days 10/28/17 21:40 Blood - Peripheral Anaerobic Blood Culture - Preliminary pleomorphic gram positive rods 10/28/17 22:00 Blood - Peripheral Aerobic Blood Culture - Final No growth in 5 days 10/28/17 22:00 Blood - Peripheral Anaerobic Blood Culture - Final No growth in 5 days 10/29/17 03:45 Sputum - Expectorated Sputum Gram Stain - Final 10/29/17 03:45 Sputum - Expectorated Sputum Sputum Culture - Final Heavy growth normal respiratory stan 10/29/17 04:10 Clean Catch Urine Urine Culture - Final No growth in 48 hours Lab - Chemistry Results 11/01/17 11/02/17 11/02/17 07:52 10:40 10:40 Sodium 138 139 Potassium 3.2 L 3.6 Chloride 103 108 H Carbon Dioxide 19.7 L 17.4 L Anion Gap 15 14 BUN 13 10 Creatinine 1.17 1.09 Estimated GFR 63 L 68 L Random Glucose 86 90 Calcium 8.1 L 8.0 L Phosphorus 1.5 L 1.9 L Magnesium 0.6 L 0.8 L Total Bilirubin 0.4 AST 32 ALT 33 Alkaline Phosphatase 92 Total Protein 6.6 Albumin 3.3 L 11/03/17 08:35 Sodium 138 Potassium 3.8 Chloride 110 H Carbon Dioxide 17.1 L Anion Gap 11 BUN 8 Creatinine 1.25 Estimated GFR 58 L Random Glucose 111 H Calcium 7.8 L Phosphorus 2.7 Magnesium 1.3 L Total Bilirubin AST ALT Alkaline Phosphatase Total Protein Albumin Imaging: ITS Impressions Abdomen/Pelvis CT 10/28/17 16:27 CONCLUSION: No acute noncontrast CT findings in the abdomen or pelvis. Physical Exam: Physical Examination GENERAL: awake and alert, not in respiratory distress. SKIN: Warm and dry. No generalized rash. Has ecchymoses in both UE. HEAD: Atraumatic. Normocephalic. No temporal wasting, or tenderness. EYES: [place] conjunctiva. No petechia or hemorrhage. Pupils equal, round and reactive to light. Extraocular movements full and intact. No scleral icterus. No injection or drainage. EARS, NOSE AND THROAT: Nose without bleeding or purulent nasal discharge. No sinus tenderness. Mucous membranes pink and moist. No oral lesions noted. No exudate. No oral thrush. NECK: Trachea midline. Supple and not tender, no meningeal signs CARDIOVASCULAR: Regular rate and rhythm. No murmurs, rubs or gallops heard RESPIRATORY: Clear to auscultation. Breath sounds equal bilaterally. No rales , wheezing or rhonchi ABDOMEN: Soft, not distended, mild tenderness, no guarding, no rebound. Bowel sounds present and normoactive. No organomegaly. EXTREMITIES: No clubbing, cyanosis, or edema. No joint effusion, has good ROM. No calf tenderness. Well perfused and warm. NEUROLOGICAL: Non-focal. PSYCHIATRIC: Normal affect, calm and cooperative. LINE: No evidence of infection Assessment and Plan - Plan Impression Possible sepsis due to C difficile colitis, better Recurrent C difficile colitis - he improved after tapering po vanco and fecal transplant - worse diarrhea, ?due to increase po intake Renal insufficiency, due to diarrhea, better Acidosis due to to bicarb loss from diarrhea Leukocytosis better One (+) BC likely contaminant Recommendation Continue po Vanco increase to 500 mg QID - give 14 days then start taper Monitor progress If no further vomiting, ?try Asacol Avoid other systemic Abx Monitor diarrhea mandy with increased po intake Explained plan to patient D/W Dr Barrett I will be off November 04- Other ID MD covering in my absence
[2017-11-03] MEDS: Mag Sulf 1 gm/100 ml Premix 100 ML IV.SIG SCH ×2 (15:34→18:01)
--- NOTE | 2017-11-03 16:11 | P.PN ---
Subjective Interval history: Follow-up C. difficile. Today he is feeling better with resolved nausea and vomiting. Only 2 loose stools so far. Denies abdominal pain. Tolerated breakfast discussed with infectious disease consider Asacol Physical Exam Vital signs: Vital Signs 11/03/17 00:00 11/03/17 08:00 11/03/17 12:00 Temperature 98 F 97.8 F 97.7 F Pulse Rate 74 67 67 Respiratory Rate 17 18 16 Blood Pressure 154/87 H 121/78 132/81 Pulse Oximetry 100 99 Intake & Output 11/02/17 11/03/17 11/03/17 18:59 06:59 18:59 Intake Total 1200 / 1200 1240 / 1240 1000 / 1000 Output Total 3 / 3 Balance 1200 / 1200 1237 / 1237 1000 / 1000 Intake: IV 1000 / 1000 1000 / 1000 NS + KCl 20 mEq Inj 1,000 ML @ 1000 / 1000 1000 / 1000 100 mls/hr IV.CONT .Q10H ÁLVARO Rx #:[id number] Oral 1200 / 1200 240 / 240 Output: Urine 3 / 3 Other: # Voids 6 Date of Last Bowel Movement 11/02/17 # Bowel Movements 20 3 Narrative: GENERAL: This is a well-nourished, well-developed patient, in no apparent distress. CARDIOVASCULAR: Regular rate and rhythm without murmurs, gallops, or rubs. RESPIRATORY: Clear to auscultation. Breath sounds equal bilaterally. No wheezes , rales, or rhonchi. GASTROINTESTINAL: Abdomen soft, lower abdominal tenderness, nondistended. Normal active bowel sounds MUSCULOSKELETAL: Extremities without clubbing, cyanosis, or edema. NEURO: Alert & Oriented x4 to person, place, time, situation. Moves all ext x4 Results - Labs CBC & Chem 7: 11/01/17 07:52 11/03/17 08:35 Laboratory Results - last 24 hr 11/02/17 11/03/17 10:40 08:35 Sodium 138 Potassium 3.8 Chloride 110 H Carbon Dioxide 17.1 L Anion Gap 11 BUN 8 Creatinine 1.25 Estimated GFR 58 L Random Glucose 111 H Calcium 7.8 L Phosphorus 1.9 L 2.7 Magnesium 1.3 L Microbiology 10/28/17 21:40 Blood - Peripheral Aerobic Blood Culture - Final No growth in 5 days 10/28/17 21:40 Blood - Peripheral Anaerobic Blood Culture - Preliminary pleomorphic gram positive rods - Procedures none Assessment and Plan - Assessment (1) C. difficile colitis Code(s): A04.72 - Enterocolitis due to Clostridium difficile, not specified as recurrent Status: Acute (2) SHAVONNE (acute kidney injury) Code(s): N17.9 - Acute kidney failure, unspecified Status: Acute (3) Anemia Code(s): D64.9 - Anemia, unspecified Status: Acute - Plan 62-year-old male admitted secondary to C. difficile colitis with severe dehydration, acute kidney injury, and respiratory compromise and sepsis. C. difficile colitis with persistent diarrhea. 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 Resolved Persistent diarrhea. Continue p.o. vancomycin for 2 weeks then taper low. Dc Flagyl patient refusing thinks it is causing nausea and vomiting. Dw infectious disease consider asacol Gastroenterology will be reconsulted Dehydration acute kidney injury with acidosis, hypokalemia and hypomagnesemia Improved with rehydration Continue to monitor electrolytes, BUN and creatinine. Continue IV hydration and electrolyte replacement Resp Insuff Resolved Patient has returned to baseline Anemia w/o acute blood loss Follow CBC Hypertension Continue baseline treatment Follow blood pressures Adjust treatments as needed History of alcohol abuse Patient no longer abuses alcohol DVT prophylaxis SQ Heparin Discharge Planning: not ready for dc with ongoing diarrhea
--- NOTE | 2017-11-03 18:05 | P.PNGI ---
Subjective Interval history: Called back to see pt. for c-diff colitis. well known to me. recently underwent fecal transplant with resolution of symptoms for 3-4 wks. now returned to hospital for recurrent c-diff. diarrhea controlled with vanco 500 mg po tid Physical Exam Vital signs: Vital Signs 11/03/17 00:00 11/03/17 08:00 11/03/17 12:00 Temperature 98 F 97.8 F 97.7 F Pulse Rate 74 67 67 Respiratory Rate 17 18 16 Blood Pressure 154/87 H 121/78 132/81 Pulse Oximetry 100 99 11/03/17 16:00 Temperature 97.7 F Pulse Rate 67 Respiratory Rate 16 Blood Pressure 132/75 Pulse Oximetry 100 Intake & Output 11/02/17 11/03/17 11/03/17 18:59 06:59 18:59 Intake Total 1200 / 1200 1240 / 1240 1000 / 1000 Output Total 3 / 3 Balance 1200 / 1200 1237 / 1237 1000 / 1000 Intake: IV 1000 / 1000 1000 / 1000 NS + KCl 20 mEq Inj 1,000 ML @ 1000 / 1000 1000 / 1000 100 mls/hr IV.CONT .Q10H ÁLVARO Rx #:[id number] Oral 1200 / 1200 240 / 240 Output: Urine 3 / 3 Other: # Voids 6 Date of Last Bowel Movement 11/02/17 # Bowel Movements 20 3 - Constitutional no acute distress, cooperative - Routine HEENT Exam Head: Present: normocephalic, atraumatic Eye: Present: EOMI, PERRL ENT: Present: mucous membranes moist, dentition normal - Routine Neck Exam Present: supple, full ROM. Absent: lymphadenopathy - Routine Respiratory Exam Present: CTA bilaterally. Absent: decreased breath sounds, respiratory distress , wheezes - Routine Cardiovascular Exam Present: RRR, S1, S2 - Routine Abdominal Exam Present: soft, normoactive bowel sounds, Gill Zavala's sign. Absent: tenderness , distended, rebound, guarding, firm, organomegaly - Routine Exam Groin: Absent: inguinal lymphadenopathy - Routine Extremities Exam Present: full ROM, pulses intact. Absent: clubbing - Routine Skin Exam Present: intact - Routine Neurological Exam Present: alert, oriented X3 Results - Labs CBC & Chem 7: 11/01/17 07:52 11/03/17 08:35 Laboratory Results - last 24 hr 11/02/17 11/03/17 10:40 08:35 Sodium 138 Potassium 3.8 Chloride 110 H Carbon Dioxide 17.1 L Anion Gap 11 BUN 8 Creatinine 1.25 Estimated GFR 58 L Random Glucose 111 H Calcium 7.8 L Phosphorus 1.9 L 2.7 Magnesium 1.3 L Microbiology 10/28/17 21:40 Blood - Peripheral Aerobic Blood Culture - Final No growth in 5 days 10/28/17 21:40 Blood - Peripheral Anaerobic Blood Culture - Preliminary pleomorphic gram positive rods - Procedures none Assessment and Plan (1) C. difficile colitis Status: Chronic Code(s): A04.72 - Enterocolitis due to Clostridium difficile, not specified as recurrent (2) Diarrhea Status: Acute Code(s): R19.7 - Diarrhea, unspecified (3) Sepsis Status: Acute Code(s): A41.9 - Sepsis, unspecified organism (4) Anemia Status: Acute Code(s): D64.9 - Anemia, unspecified - Plan 1. Continue oral vanco 500 mg po TID 2. Discussed with pt on repeat Fecal transplant as outpt 3. Will try to get this scheduled over the next several wks. in hopes of preventing a recurrence. 4. Slowly advance diet as tolerated. 5. No additional procedures recommended at this time. (2) Diarrhea Qualifiers: Diarrhea type: infectious Qualified Code(s): A09 - Infectious gastroenteritis and colitis, unspecified (3) Sepsis Qualifiers: Sepsis type: sepsis due to unspecified organism Qualified Code(s): A41.9 - Sepsis, unspecified organism (4) Anemia Qualifiers: Anemia type: other cause
[2017-11-04] MEDS: Heparin - SQ 10,000 UNITS/ML Vial SQ SCH ×3 (05:35→22:52)
[2017-11-04] MEDS: amLODIPine 5 MG Tablet PO SCH (08:04)
[2017-11-04] MEDS: guaiFENesin 600 MG ER Tablet PO SCH ×2 (08:04→22:43)
[2017-11-04] MEDS: Metoprolol Tartrate 25 MG Tablet PO SCH ×2 (08:04→22:43)
[2017-11-04] MEDS: ALPRAZolam 0.5 MG Tablet PO PRN ×2 (08:10→22:43)
[2017-11-04 08:47] LABS: Calcium 8.1 mg/dL (8.5-10.1); Carbon Dioxide 14.1 meq/L (21.0-32.0); Magnesium 1.5 mg/dL (1.5-2.5); Potassium 4.4 meq/L (3.5-5.1)
[2017-11-04 08:52] LABS: Phosphorus 2.2 mg/dL (2.5-4.9)
[2017-11-04] MEDS ORDERED: Mag Sulf 1 gm/100 ml Premix 100 ML IV.SIG ONE (09:17)
--- NOTE | 2017-11-04 16:05 | P.PN ---
Subjective Interval history: Follow-up C. difficile. Not happy his diarrhea has recurred he is refusing to eat because he thinks is making his diarrhea worse. He has been educated. Physical Exam Vital signs: Vital Signs 11/03/17 20:00 11/04/17 00:00 11/04/17 08:00 Temperature 97.8 F 97.9 F 97.8 F Pulse Rate 82 64 69 Respiratory Rate 20 20 18 Blood Pressure 150/79 H 135/80 157/96 H Pulse Oximetry 100 99 100 11/04/17 12:00 Temperature 98.1 F Pulse Rate 71 Respiratory Rate 16 Blood Pressure 128/78 Pulse Oximetry 100 Intake & Output 11/03/17 11/04/17 11/04/17 18:59 06:59 18:59 Intake Total 2500 / 2500 1360 / 1360 1100 / 1100 Balance 2500 / 2500 1360 / 1360 1100 / 1100 Weight 67.3 kg Intake: IV 1760 / 1760 1000 / 1000 1100 / 1100 NS + KCl 20 mEq Inj 1,000 ML @ 1000 / 1000 1000 / 1000 1000 / 1000 100 mls/hr IV.CONT .Q10H ÁLVARO Rx #:[id number] Magnesium Sulfate 1 gm/D5W 100 200 / 200 100 / 100 ml Premix 100 ML @ 100 mls/hr IV.SIG ONCE ONE Rx#:[id number] Oral 740 / 740 360 / 360 Other: # Voids 3 3 Date of Last Bowel Movement 11/03/17 11/04/17 # Bowel Movements 10 Narrative: GENERAL: This is a well-nourished, well-developed patient, in no apparent distress. CARDIOVASCULAR: Regular rate and rhythm without murmurs, gallops, or rubs. RESPIRATORY: Clear to auscultation. Breath sounds equal bilaterally. GASTROINTESTINAL: Abdomen soft, lower abdominal tenderness, nondistended. Normal active bowel sounds MUSCULOSKELETAL: Extremities without clubbing, cyanosis, or edema. NEURO: Alert & Oriented x4 to person, place, time, situation. Moves all ext x4 Results - Labs CBC & Chem 7: 11/01/17 07:52 11/04/17 08:06 Laboratory Results - last 24 hr 11/04/17 08:06 Sodium 139 Potassium 4.4 Chloride 114 H Carbon Dioxide 14.1 L Anion Gap 11 BUN 6 L Creatinine 1.05 Estimated GFR 71 L Random Glucose 99 Calcium 8.1 L Phosphorus 2.2 L Magnesium 1.5 Microbiology 10/28/17 21:40 Blood - Peripheral Aerobic Blood Culture - Final No growth in 5 days 10/28/17 21:40 Blood - Peripheral Anaerobic Blood Culture - Preliminary pleomorphic gram positive rods - Procedures none Assessment and Plan - Assessment (1) C. difficile colitis Code(s): A04.72 - Enterocolitis due to Clostridium difficile, not specified as recurrent Status: Acute (2) SHAVONNE (acute kidney injury) Code(s): N17.9 - Acute kidney failure, unspecified Status: Resolved (3) Anemia Code(s): D64.9 - Anemia, unspecified Status: Acute - Plan 62-year-old male admitted secondary to C. difficile colitis with severe dehydration, acute kidney injury, and respiratory compromise and sepsis. C. difficile colitis with persistent diarrhea. 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 Resolved Persistent diarrhea. Continue p.o. vancomycin for 2 weeks then taper low. Dc Flagyl patient refusing thinks it is causing nausea and vomiting. Dw infectious disease consider asacol Gastroenterology will be reconsulted Dehydration acute kidney injury with acidosis, hypokalemia and hypomagnesemia Improved with rehydration Continue to monitor electrolytes, BUN and creatinine. Continue IV hydration and electrolyte replacement. Still with acidosis secondary to ongoing diarrhea Resp Insuff Resolved Patient has returned to baseline Anemia w/o acute blood loss Follow CBC Hypertension Continue baseline treatment Follow blood pressures Adjust treatments as needed History of alcohol abuse Patient no longer abuses alcohol DVT prophylaxis SQ Heparin Discharge Planning: not ready for dc with ongoing diarrhea (3) Anemia Qualifiers: Anemia type: other cause
[2017-11-05] MEDS: Heparin - SQ 10,000 UNITS/ML Vial SQ SCH ×3 (05:01→21:19)
[2017-11-05 07:52] LABS: Calcium 8.8 mg/dL (8.5-10.1); Carbon Dioxide 13.8 meq/L (21.0-32.0); Magnesium 1.4 mg/dL (1.5-2.5); Potassium 4.6 meq/L (3.5-5.1)
[2017-11-05] MEDS: amLODIPine 5 MG Tablet PO SCH (08:39)
[2017-11-05] MEDS: guaiFENesin 600 MG ER Tablet PO SCH ×2 (08:40→20:43)
[2017-11-05] MEDS: Metoprolol Tartrate 25 MG Tablet PO SCH ×2 (08:40→20:46)
[2017-11-05] MEDS: ALPRAZolam 0.5 MG Tablet PO PRN (08:47)
--- NOTE | 2017-11-05 09:54 | P.PNGI ---
Subjective Interval history: Feels ok, had diarrhea. no fever or chills Physical Exam Vital signs: Vital Signs 11/04/17 12:00 11/04/17 20:00 11/05/17 00:00 Temperature 98.1 F 98.4 F 97.7 F Pulse Rate 71 82 72 Respiratory Rate 16 22 20 Blood Pressure 128/78 121/79 160/87 H Pulse Oximetry 100 99 98 11/05/17 04:00 11/05/17 05:10 11/05/17 08:00 Temperature 97.8 F 98.2 F Pulse Rate 82 67 81 Respiratory Rate 20 16 Blood Pressure 182/97 H 163/83 H 182/95 H Pulse Oximetry 99 99 Intake & Output 11/04/17 11/05/17 11/05/17 18:59 06:59 18:59 Intake Total 2715 / 2715 1240 / 1240 Balance 2715 / 2715 1240 / 1240 Weight 67.3 kg Intake: IV 1865 / 1865 1000 / 1000 NS + KCl 20 mEq Inj 1,000 ML @ 1765 / 1765 1000 / 1000 100 mls/hr IV.CONT .Q10H ÁLVARO Rx #:[id number] Magnesium Sulfate 1 gm/D5W 100 100 / 100 ml Premix 100 ML @ 100 mls/hr IV.SIG ONCE ONE Rx#:[id number] Oral 850 / 850 240 / 240 Other: # Voids 5 3 Date of Last Bowel Movement 11/04/17 11/04/17 # Bowel Movements 8 3 - Constitutional no acute distress - Routine HEENT Exam Head: Present: normocephalic Eye: Present: EOMI ENT: Present: mucous membranes moist - Routine Neck Exam Present: supple - Routine Respiratory Exam Present: CTA bilaterally - Routine Cardiovascular Exam Present: RRR, S1, S2 - Routine Abdominal Exam Present: soft, normoactive bowel sounds. Absent: tenderness, distended, rebound - Routine Skin Exam Present: intact - Routine Neurological Exam Present: alert, oriented X3 Results - Labs CBC & Chem 7: 11/01/17 07:52 11/05/17 06:26 Laboratory Results - last 24 hr 11/05/17 06:26 Sodium 139 Potassium 4.6 Chloride 115 H Carbon Dioxide 13.8 L Anion Gap 10 BUN 6 L Creatinine 1.10 Estimated GFR 67 L Random Glucose 99 Calcium 8.8 Magnesium 1.4 L Microbiology 10/28/17 21:40 Blood - Peripheral Aerobic Blood Culture - Final No growth in 5 days 10/28/17 21:40 Blood - Peripheral Anaerobic Blood Culture - Preliminary pleomorphic gram positive rods - Procedures none Assessment and Plan (1) C. difficile colitis Status: Chronic Code(s): A04.72 - Enterocolitis due to Clostridium difficile, not specified as recurrent (2) Diarrhea Status: Acute Code(s): R19.7 - Diarrhea, unspecified (3) Sepsis Status: Acute Code(s): A41.9 - Sepsis, unspecified organism (4) Anemia Status: Acute Code(s): D64.9 - Anemia, unspecified - Plan PLAN: 1. Diet as tolerated 2. Continue abx per ID, could consider Deficid 3. Will add Asacol 800 mg PO bid 4. Out pt workup for fecal transplant in progress by my office. (2) Diarrhea Qualifiers: Diarrhea type: infectious Qualified Code(s): A09 - Infectious gastroenteritis and colitis, unspecified (3) Sepsis Qualifiers: Sepsis type: sepsis due to unspecified organism Qualified Code(s): A41.9 - Sepsis, unspecified organism (4) Anemia Qualifiers: Anemia type: other cause
[2017-11-05] MEDS: Mag Sulf 1 gm/100 ml Premix 100 ML IV.SIG SCH ×2 (13:28→15:45)
[2017-11-05] MEDS: Morphine Inj 4 MG/ML Vial IV.PUSH PRN (16:04)
[2017-11-05] MEDS: Mesalamine 800 MG Tablet DR PO SCH ×2 (16:04→20:44)
--- NOTE | 2017-11-05 17:21 | P.PN ---
Subjective Interval history: Follow-up C. difficile . He continues to have intermittent loose stools. Also vomited 1. GI has started Asacol Physical Exam Vital signs: Vital Signs 11/04/17 20:00 11/05/17 00:00 11/05/17 04:00 Temperature 98.4 F 97.7 F 97.8 F Pulse Rate 82 72 82 Respiratory Rate 22 20 20 Blood Pressure 121/79 160/87 H 182/97 H Pulse Oximetry 99 98 99 11/05/17 05:10 11/05/17 08:00 11/05/17 12:00 Temperature 98.2 F 97.9 F Pulse Rate 67 81 76 Respiratory Rate 16 18 Blood Pressure 163/83 H 182/95 H 142/86 H Pulse Oximetry 99 99 Intake & Output 11/04/17 11/05/17 11/05/17 18:59 06:59 18:59 Intake Total 2715 / 2715 1240 / 1240 2200 / 2200 Balance 2715 / 2715 1240 / 1240 2200 / 2200 Weight 67.3 kg Intake: IV 1865 / 1865 1000 / 1000 2200 / 2200 NS + KCl 20 mEq Inj 1,000 ML @ 1765 / 1765 1000 / 1000 2000 / 2000 100 mls/hr IV.CONT .Q10H Á[facility]ARO Rx #:[id number] Magnesium Sulfate 1 gm/D5W 100 100 / 100 200 / 200 ml Premix 100 ML @ 100 mls/hr IV.SIG Q1H ÁLVARO Rx#:[id number] Oral 850 / 850 240 / 240 Other: # Voids 5 3 Date of Last Bowel Movement 11/04/17 11/04/17 11/04/17 # Bowel Movements 8 3 Narrative: GENERAL: This is a well-nourished, well-developed patient, in no apparent distress. CARDIOVASCULAR: Regular rate and rhythm without murmurs, gallops, or rubs. RESPIRATORY: Clear to auscultation. Breath sounds equal bilaterally. GASTROINTESTINAL: Abdomen soft, lower abdominal tenderness, nondistended. Normal active bowel sounds MUSCULOSKELETAL: Extremities without clubbing, cyanosis, or edema. NEURO: Alert & Oriented x4 to person, place, time, situation. Moves all ext x4 Results - Labs CBC & Chem 7: 11/01/17 07:52 11/05/17 06:26 Laboratory Results - last 24 hr 11/05/17 06:26 Sodium 139 Potassium 4.6 Chloride 115 H Carbon Dioxide 13.8 L Anion Gap 10 BUN 6 L Creatinine 1.10 Estimated GFR 67 L Random Glucose 99 Calcium 8.8 Magnesium 1.4 L Microbiology 10/28/17 21:40 Blood - Peripheral Aerobic Blood Culture - Final No growth in 5 days 10/28/17 21:40 Blood - Peripheral Anaerobic Blood Culture - Final Propionibacterium acnes - Procedures none Assessment and Plan - Assessment (1) C. difficile colitis Code(s): A04.72 - Enterocolitis due to Clostridium difficile, not specified as recurrent Status: Acute (2) SHAVONNE (acute kidney injury) Code(s): N17.9 - Acute kidney failure, unspecified Status: Resolved (3) Anemia Code(s): D64.9 - Anemia, unspecified Status: Acute - Plan 62-year-old male admitted secondary to C. difficile colitis with severe dehydration, acute kidney injury, and respiratory compromise and sepsis. C. difficile colitis with persistent diarrhea. 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 Resolved Persistent diarrhea. Continue p.o. vancomycin for 2 weeks then taper low. Dc Flagyl patient refusing thinks it is causing nausea and vomiting. Gastroenterology added Asacol. Consider Dificid Dehydration acute kidney injury with acidosis, hypokalemia and hypomagnesemia Improved with rehydration Continue to monitor electrolytes, BUN and creatinine. Continue IV hydration and electrolyte replacement. Still with acidosis secondary to ongoing diarrhea Resp Insuff Resolved Patient has returned to baseline Anemia w/o acute blood loss Follow CBC Hypertension Continue baseline treatment Follow blood pressures Adjust treatments as needed History of alcohol abuse Patient no longer abuses alcohol DVT prophylaxis SQ Heparin Discharge Planning: not ready for dc with ongoing diarrhea (3) Anemia Qualifiers: Anemia type: other cause
--- NOTE | 2017-11-05 18:56 | P.PNID ---
Subjective Remarks: Patient is a 62-year-old male, presented to the hospital with acute onset of severe diarrhea. Patient was hospitalized recently back in August and was diagnosed to have diverticulitis along with C. difficile colitis. He had involvement of the left side of the colon and sigmoid colon. He has had multiple episodes of C. difficile colitis, and actually had 3 episodes of hospitalization in 2016, had an episode in June as well as in August 2017. When he was discharged he was on tapering doses of vancomycin, and his diarrhea actually has markedly improved. 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 It stopped , so he thought it might be just something that he ate. However the diarrhea started back again on the day of admission, and he has had intermittent abdominal pain. He is also had significant nausea and vomiting. He has had some chills but no documented fever. He has not been on any antibiotics recently other than the one when he was treated for diverticulitis back in August. On presentation here his white count was 16,000.. He is severely acidotic. Stool for C. difficile came back positive. CT of the abdomen and pelvis did not show any significant abnormality in his colon. Infectious disease consultation has been requested to evaluate the patient with recurrent C. difficile colitis. Notes reviewed Temps ok Lot of diarrhea yesterday throughout night. S/b GI : added Asacol. Has not eaten all day today. C/O abdominal pain WBC down to normal Creatinine better Antibiotics: Vancomycin Lines: No evidence of infection Past Medical History: Bacteremia due to Gram-negative bacteria Clostridium difficile diarrhea Clostridium difficile infection Diverticulitis GERD (gastroesophageal reflux disease) Herpes zoster History of diverticular abscess Hypertension Pancreatitis, alcoholic, acute S/P fecal transplant Allergies/Adverse Reactions: Allergies codeine Allergy (Severe, Verified 08/28/17 14:07) RASH ibuprofen Allergy (Severe, Verified 08/28/17 14:07) Swelling of eyes levofloxacin Allergy (Severe, Verified 08/28/17 14:07) ACHILLES TENDON PROBLEM metronidazole Allergy (Severe, Verified 08/28/17 14:07) Nausea/Vomiting Objective Vital Signs 11/04/17 20:00 11/05/17 00:00 11/05/17 04:00 Temperature 98.4 F 97.7 F 97.8 F Pulse Rate 82 72 82 Respiratory Rate 22 20 20 Blood Pressure 121/79 160/87 H 182/97 H Pulse Oximetry 99 98 99 11/05/17 05:10 11/05/17 08:00 11/05/17 12:00 Temperature 98.2 F 97.9 F Pulse Rate 67 81 76 Respiratory Rate 16 18 Blood Pressure 163/83 H 182/95 H 142/86 H Pulse Oximetry 99 99 11/05/17 16:00 Temperature 97.9 F Pulse Rate 86 Respiratory Rate 17 Blood Pressure 171/92 H Pulse Oximetry 100 Intake & Output 11/04/17 11/05/17 11/05/17 18:59 06:59 18:59 Intake Total 2715 / 2715 1240 / 1240 2680 / 2680 Output Total 550 / 550 Balance 2715 / 2715 1240 / 1240 2130 / 2130 Weight 67.3 kg Intake: IV 1865 / 1865 1000 / 1000 2200 / 2200 NS + KCl 20 mEq Inj 1,000 ML @ 1765 / 1765 1000 / 1000 2000 / 2000 100 mls/hr IV.CONT .Q10H ÁLVARO Rx #:[id number] Magnesium Sulfate 1 gm/D5W 100 100 / 100 200 / 200 ml Premix 100 ML @ 100 mls/hr IV.SIG Q1H ÁLVARO Rx#:[id number] Oral 850 / 850 240 / 240 480 / 480 Output: Urine 550 / 550 Other: # Voids 5 3 Date of Last Bowel Movement 11/04/17 11/04/17 11/04/17 # Bowel Movements 8 3 0 10/28/17 21:40 Blood - Peripheral Aerobic Blood Culture - Final No growth in 5 days 10/28/17 21:40 Blood - Peripheral Anaerobic Blood Culture - Final Propionibacterium acnes Lab - Chemistry Results 11/04/17 11/05/17 08:06 06:26 Sodium 139 139 Potassium 4.4 4.6 Chloride 114 H 115 H Carbon Dioxide 14.1 L 13.8 L Anion Gap 11 10 BUN 6 L 6 L Creatinine 1.05 1.10 Estimated GFR 71 L 67 L Random Glucose 99 99 Calcium 8.1 L 8.8 Phosphorus 2.2 L Magnesium 1.5 1.4 L Imaging: ITS Impressions Abdomen/Pelvis CT 10/28/17 16:27 CONCLUSION: No acute noncontrast CT findings in the abdomen or pelvis. Physical Exam: Physical Examination GENERAL: awake and alert, not in respiratory distress. SKIN: Warm and dry. No generalized rash. Has ecchymoses in both UE. HEAD: Atraumatic. Normocephalic. No temporal wasting, or tenderness. EYES: Noonday conjunctiva. No petechia or hemorrhage. Pupils equal, round and reactive to light. Extraocular movements full and intact. No scleral icterus. No injection or drainage. EARS, NOSE AND THROAT: Nose without bleeding or purulent nasal discharge. No sinus tenderness. Mucous membranes pink and moist. No oral lesions noted. No exudate. No oral thrush. NECK: Trachea midline. Supple and not tender, no meningeal signs CARDIOVASCULAR: Regular rate and rhythm. No murmurs, rubs or gallops heard RESPIRATORY: Clear to auscultation. Breath sounds equal bilaterally. No rales , wheezing or rhonchi ABDOMEN: Soft, not distended, mild tenderness, no guarding, no rebound. Bowel sounds present and normoactive. No organomegaly. EXTREMITIES: No clubbing, cyanosis, or edema. No joint effusion, has good ROM. No calf tenderness. Well perfused and warm. NEUROLOGICAL: Non-focal. PSYCHIATRIC: Normal affect, calm and cooperative. LINE: No evidence of infection Assessment and Plan - Plan Impression Possible sepsis due to C difficile colitis, better Recurrent C difficile colitis - he improved after tapering po vanco and fecal transplant - worse diarrhea, ?due to increase po intake Renal insufficiency, due to diarrhea, better Acidosis due to to bicarb loss from diarrhea Leukocytosis better One (+) BC likely contaminant Recommendation Continue po Vanco increase to 500 mg QID Continue Asacol. Start Dificid. Monitor progress Avoid other systemic Abx Monitor diarrhea Monitor I/O Explained plan to patient D/W Dr Daniel Kennedy. to resume care on Wednesday11/08/2017. covering this weekend.
[2017-11-06] MEDS: Heparin - SQ 10,000 UNITS/ML Vial SQ SCH ×3 (05:01→21:59)
[2017-11-06 08:09] LABS: Calcium 8.8 mg/dL (8.5-10.1); Carbon Dioxide 12.6 meq/L (21.0-32.0); Potassium 4.3 meq/L (3.5-5.1)
[2017-11-06] MEDS: amLODIPine 5 MG Tablet PO SCH (08:47)
[2017-11-06] MEDS: Metoprolol Tartrate 25 MG Tablet PO SCH ×2 (08:47→21:00)
[2017-11-06] MEDS: guaiFENesin 600 MG ER Tablet PO SCH ×2 (08:47→21:00)
[2017-11-06] MEDS: Mesalamine 800 MG Tablet DR PO SCH (08:47)
--- NOTE | 2017-11-06 11:58 | P.PNGI ---
Subjective Interval history: pt seen, c/o of N/v after taking asacol. doesn't wan to to continue it currently on vanco and deficid. diarrhea improving Physical Exam Vital signs: Vital Signs 11/05/17 12:00 11/05/17 16:00 11/05/17 20:00 Temperature 97.9 F 97.9 F 97.4 F L Pulse Rate 76 86 120 H Respiratory Rate 18 17 21 Blood Pressure 142/86 H 171/92 H 176/93 H Pulse Oximetry 99 100 100 11/06/17 00:00 11/06/17 08:00 Temperature 97.9 F 98.0 F Pulse Rate 79 82 Respiratory Rate 20 18 Blood Pressure 136/78 174/92 H Pulse Oximetry 99 99 Intake & Output 11/05/17 11/06/17 11/06/17 18:59 06:59 18:59 Intake Total 2680 / 2680 1999 / 1999 Output Total 550 / 550 Balance 2130 / 2130 1999 / 1999 Weight 67.3 kg Intake: IV 2200 / 2200 1000 / 1000 NS + KCl 20 mEq Inj 1,000 ML @ 1999 / 2000 1000 / 1000 100 mls/hr IV.CONT .Q10H ÁLVARO Rx #:[id number] Magnesium Sulfate 1 gm/D5W 100 200 / 200 ml Premix 100 ML @ 100 mls/hr IV.SIG Q1H ÁLVARO Rx#:[id number] Oral 480 / 480 1000 / 1000 Output: Urine 550 / 550 Other: # Voids 6 Date of Last Bowel Movement 11/04/17 11/05/17 # Bowel Movements 0 6 - Constitutional no acute distress - Routine HEENT Exam Head: Present: normocephalic, atraumatic Eye: Present: EOMI ENT: Present: mucous membranes moist - Routine Neck Exam Present: supple, full ROM - Routine Cardiovascular Exam Present: RRR, S1, S2. Absent: bradycardia - Routine Abdominal Exam Present: soft, normoactive bowel sounds. Absent: tenderness, distended, rebound , guarding, firm, organomegaly - Routine Extremities Exam Present: full ROM, pulses intact. Absent: edema, calf tenderness - Routine Skin Exam Present: intact - Routine Neurological Exam Present: alert, oriented X3 Results - Labs CBC & Chem 7: 11/01/17 07:52 11/06/17 05:32 Laboratory Results - last 24 hr 11/06/17 05:32 Sodium 137 Potassium 4.3 Chloride 111 H Carbon Dioxide 12.6 L Anion Gap 13 BUN 6 L Creatinine 1.12 Estimated GFR 66 L Random Glucose 102 Calcium 8.8 Microbiology 10/28/17 21:40 Blood - Peripheral Aerobic Blood Culture - Final No growth in 5 days 10/28/17 21:40 Blood - Peripheral Anaerobic Blood Culture - Final Propionibacterium acnes - Procedures none Assessment and Plan (1) C. difficile colitis Status: Chronic Code(s): A04.72 - Enterocolitis due to Clostridium difficile, not specified as recurrent (2) Diarrhea Status: Acute Code(s): R19.7 - Diarrhea, unspecified (3) Sepsis Status: Acute Code(s): A41.9 - Sepsis, unspecified organism (4) Anemia Status: Acute Code(s): D64.9 - Anemia, unspecified - Plan PLAN: 1. Continue Vanco PO 500 mg QId 2. Continue Deficid 200 mg po bid 3. Diet as tolerated 4. Will d/c asacol (pt c/o of severe N/v and doesn't want to continue it ) 5. Anticipate d/c with above meds once diarrhea in under control. (2) Diarrhea Qualifiers: Diarrhea type: infectious Qualified Code(s): A09 - Infectious gastroenteritis and colitis, unspecified (3) Sepsis Qualifiers: Sepsis type: sepsis due to unspecified organism Qualified Code(s): A41.9 - Sepsis, unspecified organism (4) Anemia Qualifiers: Anemia type: other cause
[2017-11-06] MEDS: ALPRAZolam 0.5 MG Tablet PO PRN (15:23)
--- NOTE | 2017-11-06 16:55 | P.PN ---
Subjective Interval history: F/U c diff. did not tolerate Asacol w/c caused N/V and shaking. Improving diarrhea Physical Exam Vital signs: Vital Signs 11/05/17 20:00 11/06/17 00:00 11/06/17 08:00 Temperature 97.4 F L 97.9 F 98.0 F Pulse Rate 120 H 79 82 Respiratory Rate 21 20 18 Blood Pressure 176/93 H 136/78 174/92 H Pulse Oximetry 100 99 99 11/06/17 12:00 11/06/17 12:34 Temperature 97.6 F Pulse Rate 82 Respiratory Rate 16 18 Blood Pressure 170/88 H Pulse Oximetry 99 Intake & Output 11/05/17 11/06/17 11/06/17 18:59 06:59 18:59 Intake Total 2680 / 2680 1999 / 1999 1000 / 1000 Output Total 550 / 550 Balance 2130 / 2130 1999 / 1999 1000 / 1000 Weight 67.3 kg Intake: IV 2200 / 2200 1000 / 1000 1000 / 1000 NS + KCl 20 mEq Inj 1,000 ML @ 1999 / 1999 1000 / 1000 1000 / 1000 100 mls/hr IV.CONT .Q10H ÁLVARO Rx #:[id number] Magnesium Sulfate 1 gm/D5W 100 200 / 200 ml Premix 100 ML @ 100 mls/hr IV.SIG Q1H ÁLVARO Rx#:[id number] Oral 480 / 480 1000 / 1000 Output: Urine 550 / 550 Other: # Voids 6 Date of Last Bowel Movement 11/04/17 11/05/17 # Bowel Movements 0 6 Narrative: GENERAL: This is a well-nourished, well-developed patient, in no apparent distress. CARDIOVASCULAR: Regular rate and rhythm without murmurs, gallops, or rubs. RESPIRATORY: Clear to auscultation. Breath sounds equal bilaterally. GASTROINTESTINAL: Abdomen soft, lower abdominal tenderness, nondistended. Normal active bowel sounds MUSCULOSKELETAL: Extremities without clubbing, cyanosis, or edema. NEURO: Alert & Oriented x4 to person, place, time, situation. Results - Labs CBC & Chem 7: 11/01/17 07:52 11/06/17 05:32 Laboratory Results - last 24 hr 11/06/17 05:32 Sodium 137 Potassium 4.3 Chloride 111 H Carbon Dioxide 12.6 L Anion Gap 13 BUN 6 L Creatinine 1.12 Estimated GFR 66 L Random Glucose 102 Calcium 8.8 Microbiology 10/28/17 21:40 Blood - Peripheral Aerobic Blood Culture - Final No growth in 5 days 10/28/17 21:40 Blood - Peripheral Anaerobic Blood Culture - Final Propionibacterium acnes - Procedures none Assessment and Plan - Assessment (1) C. difficile colitis Code(s): A04.72 - Enterocolitis due to Clostridium difficile, not specified as recurrent Status: Acute (2) SHAVONNE (acute kidney injury) Code(s): N17.9 - Acute kidney failure, unspecified Status: Resolved (3) Anemia Code(s): D64.9 - Anemia, unspecified Status: Acute - Plan 62-year-old male admitted secondary to C. difficile colitis with severe dehydration, acute kidney injury, and respiratory compromise and sepsis. C. difficile colitis with persistent diarrhea. 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 Resolved Persistent diarrhea. Improving diarrhea Continue p.o. vancomycin for 2 weeks then taper low and dificid. Dc Flagyl patient refusing thinks it is causing nausea and vomiting. Also did not tolerate Asacol Dehydration acute kidney injury with acidosis, hypokalemia and hypomagnesemia Improved with rehydration Continue to monitor electrolytes, BUN and creatinine. Continue IV hydration and electrolyte replacement. Still with acidosis secondary to ongoing diarrhea Resp Insuff Resolved Patient has returned to baseline Anemia w/o acute blood loss Follow CBC Hypertension Continue baseline treatment Follow blood pressures Adjust treatments as needed History of alcohol abuse Patient no longer abuses alcohol DVT prophylaxis SQ Heparin Discharge Planning: not ready for dc with protracted course of diarrhea (3) Anemia Qualifiers: Anemia type: other cause
[2017-11-06] MEDS: guaiFENesin/Dextromethorphan 200 MG/20 MG 10 ML UDC PO PRN (22:04)
[2017-11-07] MEDS: Heparin - SQ 10,000 UNITS/ML Vial SQ SCH ×3 (05:11→22:19)
[2017-11-07] MEDS: amLODIPine 5 MG Tablet PO SCH (08:14)
[2017-11-07] MEDS: guaiFENesin 600 MG ER Tablet PO SCH ×2 (08:14→21:29)
[2017-11-07] MEDS: Metoprolol Tartrate 25 MG Tablet PO SCH ×2 (08:14→21:30)
--- NOTE | 2017-11-07 13:21 | P.PN ---
Subjective Interval history: Follow-up C. difficile. Not good continued diarrhea. He also vomited twice last night. Denies abdominal pain. He is so tired today and wants a sleeper tonight. Physical Exam Vital signs: Vital Signs 11/06/17 16:00 11/06/17 20:00 11/07/17 00:00 Temperature 98.0 F 97.6 F 98.4 F Pulse Rate 83 95 H 86 Respiratory Rate 20 18 18 Blood Pressure 168/89 H 140/88 167/90 H Pulse Oximetry 100 97 99 11/07/17 08:00 11/07/17 12:00 Temperature 97.5 F L 98.2 F Pulse Rate 85 80 Respiratory Rate 18 18 Blood Pressure 176/96 H 150/89 H Pulse Oximetry 99 98 Intake & Output 11/06/17 11/07/17 11/07/17 18:59 06:59 18:59 Intake Total 3400 / 3400 1000 / 1000 1000 / 1000 Output Total 900 / 900 Balance 2500 / 2500 1000 / 1000 1000 / 1000 Intake: IV 1000 / 1000 1000 / 1000 1000 / 1000 NS + KCl 20 mEq Inj 1,000 ML @ 1000 / 1000 1000 / 1000 1000 / 1000 100 mls/hr IV.CONT .Q10H ÁLVARO Rx #:[id number] Oral 2400 / 2400 Output: Urine 900 / 900 Other: # Voids 5 Date of Last Bowel Movement 11/06/17 # Bowel Movements 15 6 # Emeses 0 Narrative: GENERAL: This is a well-nourished, well-developed patient, in no apparent distress. Dry oral mucosa CARDIOVASCULAR: Regular rate and rhythm without murmurs, gallops, or rubs. RESPIRATORY: Clear to auscultation. Breath sounds equal bilaterally. GASTROINTESTINAL: Abdomen soft, lower abdominal tenderness, nondistended. Normal active bowel sounds MUSCULOSKELETAL: Extremities without clubbing, cyanosis, or edema. NEURO: Alert & Oriented x4 to person, place, time, situation. Results - Labs CBC & Chem 7: 11/01/17 07:52 11/06/17 05:32 - Procedures none Assessment and Plan - Assessment (1) C. difficile colitis Code(s): A04.72 - Enterocolitis due to Clostridium difficile, not specified as recurrent Status: Acute (2) SHAVONNE (acute kidney injury) Code(s): N17.9 - Acute kidney failure, unspecified Status: Resolved (3) Anemia Code(s): D64.9 - Anemia, unspecified Status: Acute - Plan 62-year-old male admitted secondary to C. difficile colitis with severe dehydration, acute kidney injury, and respiratory compromise and sepsis. C. difficile colitis with persistent diarrhea. 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 Resolved Persistent diarrhea. Improving diarrhea Continue p.o. vancomycin for 2 weeks then taper low and dificid. Dc Flagyl patient refusing thinks it is causing nausea and vomiting. Also did not tolerate Asacol Dehydration acute kidney injury with acidosis, hypokalemia and hypomagnesemia Improved with rehydration Continue to monitor electrolytes, BUN and creatinine. Continue IV hydration and electrolyte replacement. Still with acidosis secondary to ongoing diarrhea labs pending Resp Insuff Resolved Patient has returned to baseline Anemia w/o acute blood loss Follow CBC Hypertension Continue baseline treatment Follow blood pressures Adjust treatments as needed History of alcohol abuse Patient no longer abuses alcohol DVT prophylaxis SQ Heparin Discharge Planning: not ready for dc with protracted course of diarrhea (3) Anemia Qualifiers: Anemia type: other cause
[2017-11-07] MEDS: ALPRAZolam 0.5 MG Tablet PO PRN ×2 (13:53→22:20)
[2017-11-07] MEDS ORDERED: Zolpidem Tartrate 5 MG Tablet PO PRN (14:58)
[2017-11-07 15:52] LABS: Calcium 8.8 mg/dL (8.5-10.1); Carbon Dioxide 14.3 meq/L (21.0-32.0); Magnesium 1.2 mg/dL (1.5-2.5); Potassium 4.6 meq/L (3.5-5.1)
[2017-11-08] MEDS: Heparin - SQ 10,000 UNITS/ML Vial SQ SCH ×2 (06:23→13:09)
[2017-11-08] MEDS: Metoprolol Tartrate 25 MG Tablet PO SCH ×2 (09:09→20:44)
[2017-11-08] MEDS: guaiFENesin 600 MG ER Tablet PO SCH ×2 (09:09→20:44)
[2017-11-08] MEDS: ALPRAZolam 0.5 MG Tablet PO PRN ×2 (09:21→21:03)
[2017-11-08] MEDS: Mag Sulf 1 gm/100 ml Premix 100 ML IV.SIG SCH ×2 (09:21→13:08)
[2017-11-08] MEDS ORDERED: amLODIPine 10 MG Tablet PO SCH (09:30)
[2017-11-08 09:47] LABS: Baso # (Auto) 0.1 th/mm3 (0.0-0.2); Baso % (Auto) 0.7 % (0.0-2.0); Eos # (Auto) 0.1 th/mm3 (0.0-0.4); Eos % (Auto) 0.5 % (0.0-4.0); Hematocrit 29.6 % (39.0-51.0); Hemoglobin 9.4 gm/dL (13.0-17.0); Lymph % (Auto) 15.9 % (9.0-44.0); Mean Corpuscular HGB Conc 31.9 % (32.0-36.0); Mean Corpuscular Hemoglobin 28.6 pg (27.0-34.0); Mean Corpuscular Volume 89.6 fL (80.0-100.0); Mean Platelet Volume 8.7 fL (7.0-11.0); Mono # (Auto) 1.2 th/mm3 (0.0-0.9); Mono % (Auto) 9.7 % (0.0-8.0); Neut # (Auto) 9.4 th/mm3 (1.8-7.7); Neut % (Auto) 73.2 % (16.0-70.0); Platelet Count 512 th/mm3 (150-450); White Blood Count 12.8 th/mm3 (4.0-11.0)
[2017-11-08 10:02] LABS: Carbon Dioxide 11.9 meq/L (21.0-32.0); Magnesium 1.1 mg/dL (1.5-2.5)
--- NOTE | 2017-11-08 12:01 | P.PNID ---
Subjective Remarks: Patient is a 62-year-old male, presented to the hospital with acute onset of severe diarrhea. Patient was hospitalized recently back in August and was diagnosed to have diverticulitis along with C. difficile colitis. He had involvement of the left side of the colon and sigmoid colon. He has had multiple episodes of C. difficile colitis, and actually had 3 episodes of hospitalization in 2016, had an episode in June as well as in August 2017. When he was discharged he was on tapering doses of vancomycin, and his diarrhea actually has markedly improved. 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 It stopped , so he thought it might be just something that he ate. However the diarrhea started back again on the day of admission, and he has had intermittent abdominal pain. He is also had significant nausea and vomiting. He has had some chills but no documented fever. He has not been on any antibiotics recently other than the one when he was treated for diverticulitis back in August. On presentation here his white count was 16,000.. He is severely acidotic. Stool for C. difficile came back positive. CT of the abdomen and pelvis did not show any significant abnormality in his colon. Infectious disease consultation has been requested to evaluate the patient with recurrent C. difficile colitis. Notes reviewed Temps ok Still having frequent diarrhea Not tolerating Asacol On high dose po vanco and Dificidday. C/O abdominal pain WBC down to normal Still with significant HCO3 loss in stool Creatinine better Antibiotics: Vancomycin po Dificid Lines: No evidence of infection Past Medical History: Bacteremia due to Gram-negative bacteria Clostridium difficile diarrhea Clostridium difficile infection Diverticulitis GERD (gastroesophageal reflux disease) Herpes zoster History of diverticular abscess Hypertension Pancreatitis, alcoholic, acute S/P fecal transplant Allergies/Adverse Reactions: Allergies codeine Allergy (Severe, Verified 08/28/17 14:07) RASH ibuprofen Allergy (Severe, Verified 08/28/17 14:07) Swelling of eyes levofloxacin Allergy (Severe, Verified 08/28/17 14:07) ACHILLES TENDON PROBLEM metronidazole Allergy (Severe, Verified 08/28/17 14:07) Nausea/Vomiting Objective Vital Signs 11/07/17 12:00 11/07/17 20:00 11/08/17 00:00 Temperature 98.2 F 98.1 F 98.0 F Pulse Rate 80 102 H 86 Respiratory Rate 18 20 18 Blood Pressure 150/89 H 173/89 H 180/89 H Pulse Oximetry 98 98 97 11/08/17 01:27 Temperature Pulse Rate 80 Respiratory Rate Blood Pressure 178/97 H Pulse Oximetry Intake & Output 11/07/17 11/08/17 11/08/17 18:59 06:59 18:59 Intake Total 3400 / 3400 1000 / 1000 Output Total 4 / 4 Balance 3396 / 3396 1000 / 1000 Intake: IV 1999 1000 / 1000 NS + KCl 20 mEq Inj 1,000 ML @ 1999 1000 / 1000 100 mls/hr IV.CONT .Q10H ÁLVARO Rx #:[id number] Oral 1400 / 1400 Output: Urine 4 / 4 Other: # Voids 6 Date of Last Bowel Movement 11/06/17 # Bowel Movements 5 3 # [place] 0 10/28/17 21:40 Blood - Peripheral Aerobic Blood Culture - Final No growth in 5 days 10/28/17 21:40 Blood - Peripheral Anaerobic Blood Culture - Final Propionibacterium acnes Lab - Hematology Results 11/08/17 09:10 WBC 12.8 H RBC 3.30 L Hgb 9.4 L Hct 29.6 L MCV 89.6 MCH 28.6 MCHC 31.9 L RDW 21.0 H Plt Count 512 H D MPV 8.7 Neut % (Auto) 73.2 H Lymph % (Auto) 15.9 [place] % (Auto) 9.7 H Eos % (Auto) 0.5 Baso % (Auto) 0.7 Neut # (Auto) 9.4 H Lymph # (Auto) 2.0 [place] # (Auto) 1.2 H Eos # (Auto) 0.1 Baso # (Auto) 0.1 WBC Differential . Differential Comment Auto diff final Lab - Chemistry Results 11/07/17 11/08/17 14:46 09:10 Sodium 139 137 Potassium 4.6 5.0 Chloride 112 H 111 H Carbon Dioxide 14.3 L 11.9 L Anion Gap 13 14 BUN 6 L 7 Creatinine 1.01 1.08 Estimated GFR 74 L 69 L Random Glucose 107 H 76 Calcium 8.8 9.0 Magnesium 1.2 L 1.1 L Imaging: ITS Impressions Abdomen/Pelvis CT 10/28/17 16:27 CONCLUSION: No acute noncontrast CT findings in the abdomen or pelvis. Physical Exam: GENERAL: awake and alert, not in respiratory distress. SKIN: Warm and dry. No generalized rash. Has ecchymoses in both UE. HEAD: Atraumatic. Normocephalic. No temporal wasting, or tenderness. EYES: [place] conjunctiva. No petechia or hemorrhage. Pupils equal, round and reactive to light. Extraocular movements full and intact. No scleral icterus. No injection or drainage. EARS, NOSE AND THROAT: Nose without bleeding or purulent nasal discharge. No sinus tenderness. Mucous membranes pink and moist. No oral lesions noted. No exudate. No oral thrush. NECK: Trachea midline. Supple and not tender, no meningeal signs CARDIOVASCULAR: Regular rate and rhythm. No murmurs, rubs or gallops heard RESPIRATORY: Clear to auscultation. Breath sounds equal bilaterally. No rales , wheezing or rhonchi ABDOMEN: Soft, not distended, mild tenderness, no guarding, no rebound. Bowel sounds present and normoactive. No organomegaly. EXTREMITIES: No clubbing, cyanosis, or edema. No joint effusion, has good ROM. No calf tenderness. Well perfused and warm. NEUROLOGICAL: Non-focal. PSYCHIATRIC: Normal affect, calm and cooperative. LINE: No evidence of infection Assessment and Plan - Plan Impression Possible sepsis due to C difficile colitis, better Recurrent C difficile colitis - he improved after tapering po vanco and fecal transplant - worse diarrhea, ?due to increase po intake Renal insufficiency, due to diarrhea, better Acidosis due to to bicarb loss from diarrhea Leukocytosis better One (+) BC likely contaminant Recommendation Continue po Vanco increase to 500 mg QID Continue Dificid. Monitor progress Avoid other systemic Abx Monitor diarrhea Monitor I/O If not better, will start Vanco enema D/W Dr Barrett
--- NOTE | 2017-11-08 13:55 | P.PN ---
Subjective Interval history: Follow-up C. difficile. Diarrhea is improving. Denies nausea and vomiting. Reports Ambien has paradoxical effect on him. Prefers Xanax for sleeper patient counseled regarding benzodiazepine use. Also states he needs to be back on lisinopril Physical Exam Vital signs: Vital Signs 11/07/17 20:00 11/08/17 00:00 11/08/17 01:27 Temperature 98.1 F 98.0 F Pulse Rate 102 H 86 80 Respiratory Rate 20 18 Blood Pressure 173/89 H 180/89 H 178/97 H Pulse Oximetry 98 97 11/08/17 08:00 11/08/17 12:00 Temperature 97.3 F L 98.7 F Pulse Rate 74 70 Respiratory Rate 16 17 Blood Pressure 159/87 H 151/81 H Pulse Oximetry 98 97 Intake & Output 11/07/17 11/08/17 11/08/17 18:59 06:59 18:59 Intake Total 3400 / 3400 1000 / 1000 100 / 100 Output Total 4 / 4 Balance 3396 / 3396 1000 / 1000 100 / 100 Intake: IV 1999 / 1999 1000 / 1000 100 / 100 NS + KCl 20 mEq Inj 1,000 ML @ 2000 / 2000 1000 / 1000 100 mls/hr IV.CONT .Q10H ÁLVARO Rx #:[id number] Magnesium Sulfate 1 gm/D5W 100 100 / 100 ml Premix 100 ML @ 100 mls/hr IV.SIG Q1H ÁLVARO Rx#:[id number] Oral 1400 / 1400 Output: Urine 4 / 4 Other: # Voids 6 Date of Last Bowel Movement 11/06/17 11/08/17 # Bowel Movements 5 3 # Em[place]es 0 Narrative: GENERAL: This is a well-nourished, well-developed patient, in no apparent distress. CARDIOVASCULAR: Regular rate and rhythm without murmurs, gallops, or rubs. RESPIRATORY: Clear to auscultation. Breath sounds equal bilaterally. GASTROINTESTINAL: Abdomen soft, lower abdominal tenderness, nondistended. Normal active bowel sounds MUSCULOSKELETAL: Extremities without clubbing, cyanosis, or edema. NEURO: Alert & Oriented x4 to person, place, time, situation. Results - Labs CBC & Chem 7: 11/08/17 09:10 11/08/17 09:10 Laboratory Results - last 24 hr 07/15/18 07/16/18 07/16/18 14:46 09:10 09:10 WBC 12.8 H RBC 3.30 L Hgb 9.4 L Hct 29.6 L MCV 89.6 MCH 28.6 MCHC 31.9 L RDW 21.0 H Plt Count 512 H D MPV 8.7 Neut % (Auto) 73.2 H Lymph % (Auto) 15.9 [place] % (Auto) 9.7 H Eos % (Auto) 0.5 Baso % (Auto) 0.7 Neut # (Auto) 9.4 H Lymph # (Auto) 2.0 [place] # (Auto) 1.2 H Eos # (Auto) 0.1 Baso # (Auto) 0.1 WBC Differential . Differential Comment Auto diff final Sodium 139 137 Potassium 4.6 5.0 Chloride 112 H 111 H Carbon Dioxide 14.3 L 11.9 L Anion Gap 13 14 BUN 6 L 7 Creatinine 1.01 1.08 Estimated GFR 74 L 69 L Random Glucose 107 H 76 Calcium 8.8 9.0 Magnesium 1.2 L 1.1 L - Imaging ITS Impressions Abdomen/Pelvis CT 10/28/17 16:27 CONCLUSION: No acute noncontrast CT findings in the abdomen or pelvis. - Procedures none Assessment and Plan - Assessment (1) C. difficile colitis Code(s): A04.72 - Enterocolitis due to Clostridium difficile, not specified as recurrent Status: Acute (2) SHAVONNE (acute kidney injury) Code(s): N17.9 - Acute kidney failure, unspecified Status: Resolved (3) Anemia Code(s): D64.9 - Anemia, unspecified Status: Acute - Plan 62-year-old male admitted secondary to C. difficile colitis with severe dehydration, acute kidney injury, and respiratory compromise and sepsis. C. difficile colitis with persistent diarrhea. 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 Resolved Protracted course continue p.o. vancomycin for [address] dificid. Dc Flagyl patient refusing thinks it is causing nausea and vomiting. Also did not tolerate Asacol. Dw ID may need vanco enema if not any better. Per GI, rpt fecal transplant o/p Dehydration acute kidney injury with acidosis, hypokalemia and hypomagnesemia Improved with rehydration Continue to monitor electrolytes, BUN and creatinine. Continue IV hydration and electrolyte replacement. Still with acidosis secondary to ongoing diarrhea Resp Insuff Resolved Patient has returned to baseline Anemia w/o acute blood loss Follow CBC Hypertension Continue baseline treatment Follow blood pressures Adjust treatments as needed History of alcohol abuse Patient no longer abuses alcohol DVT prophylaxis SQ Heparin Discharge Planning: not ready for dc with persistent diarrhea (3) Anemia Qualifiers: Anemia type: other cause
[2017-11-08] MEDS: amLODIPine 5 MG Tablet PO SCH (16:46)
[2017-11-08] MEDS: guaiFENesin/Dextromethorphan 200 MG/20 MG 10 ML UDC PO PRN (21:03)
[2017-11-09] MEDS: Heparin - SQ 10,000 UNITS/ML Vial SQ SCH ×4 (00:29→21:32)
[2017-11-09 05:29] LABS: Calcium 8.7 mg/dL (8.5-10.1); Carbon Dioxide 12.7 meq/L (21.0-32.0); Magnesium 1.4 mg/dL (1.5-2.5); Potassium 4.8 meq/L (3.5-5.1)
[2017-11-09] MEDS: Metoprolol Tartrate 25 MG Tablet PO SCH ×2 (09:14→20:00)
[2017-11-09] MEDS: Lisinopril 20 MG Tablet PO SCH (09:14)
[2017-11-09] MEDS: guaiFENesin 600 MG ER Tablet PO SCH ×2 (09:14→20:00)
[2017-11-09] MEDS: amLODIPine 5 MG Tablet PO SCH (09:15)
[2017-11-09] MEDS: ALPRAZolam 0.5 MG Tablet PO PRN ×2 (09:21→21:30)
--- NOTE | 2017-11-09 09:44 | P.PNID ---
Subjective Remarks: Patient is a 62-year-old male, presented to the hospital with acute onset of severe diarrhea. Patient was hospitalized recently back in August and was diagnosed to have diverticulitis along with C. difficile colitis. He had involvement of the left side of the colon and sigmoid colon. He has had multiple episodes of C. difficile colitis, and actually had 3 episodes of hospitalization in 2016, had an episode in June as well as in August 2017. When he was discharged he was on tapering doses of vancomycin, and his diarrhea actually has markedly improved. 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 It stopped , so he thought it might be just something that he ate. However the diarrhea started back again on the day of admission, and he has had intermittent abdominal pain. He is also had significant nausea and vomiting. He has had some chills but no documented fever. He has not been on any antibiotics recently other than the one when he was treated for diverticulitis back in August. On presentation here his white count was 16,000.. He is severely acidotic. Stool for C. difficile came back positive. CT of the abdomen and pelvis did not show any significant abnormality in his colon. Infectious disease consultation has been requested to evaluate the patient with recurrent C. difficile colitis. Notes reviewed Temps ok Stools a little better since yesterday afternoon - some mushy with liquid Abdominal pain still present, eases some with [place] No vomiting Eating more at times Still with significant HCO3 loss in stool Creatinine better Antibiotics: Vancomycin po Dificid Lines: No evidence of infection Past Medical History: Bacteremia due to Gram-negative bacteria Clostridium difficile diarrhea Clostridium difficile infection Diverticulitis GERD (gastroesophageal reflux disease) Herpes zoster History of diverticular abscess Hypertension Pancreatitis, alcoholic, acute S/P fecal transplant Allergies/Adverse Reactions: Allergies codeine Allergy (Severe, Verified 08/28/17 14:07) RASH ibuprofen Allergy (Severe, Verified 08/28/17 14:07) Swelling of eyes levofloxacin Allergy (Severe, Verified 08/28/17 14:07) ACHILLES TENDON PROBLEM metronidazole Allergy (Severe, Verified 08/28/17 14:07) Nausea/Vomiting Objective Vital Signs 11/08/17 12:00 11/08/17 14:03 11/08/17 16:00 Temperature 98.7 F 98.3 F 98.1 F Pulse Rate 70 102 H 79 Respiratory Rate 17 17 18 Blood Pressure 151/81 H 147/80 H 148/82 H Pulse Oximetry 97 95 99 11/08/17 20:00 11/09/17 00:00 11/09/17 08:00 Temperature 98.1 F 97.8 F 97.9 F Pulse Rate 82 80 78 Respiratory Rate 18 17 17 Blood Pressure 149/82 H 132/76 141/83 H Pulse Oximetry 100 100 98 Intake & Output 11/08/17 11/09/17 11/09/17 18:59 06:59 18:59 Intake Total 1600 / 1600 1480 / 1480 Balance 1600 / 1600 1480 / 1480 Intake: IV 1200 / 1200 1000 / 1000 NS + KCl 20 mEq Inj 1,000 ML @ 1000 / 1000 1000 / 1000 70 mls/hr IV.CONT .[id number] ÁLVARO Rx#:[id number] Magnesium Sulfate 1 gm/D5W 100 200 / 200 ml Premix 100 ML @ 100 mls/hr IV.SIG Q1H ÁLVARO Rx#:[id number] Oral 400 / 400 480 / 480 Other: # Voids 6 3 Date of Last Bowel Movement 11/08/17 # Bowel Movements 8 Lab - Hematology Results 11/08/17 09:10 WBC 12.8 H RBC 3.30 L Hgb 9.4 L Hct 29.6 L MCV 89.6 MCH 28.6 MCHC 31.9 L RDW 21.0 H Plt Count 512 H D MPV 8.7 Neut % (Auto) 73.2 H Lymph % (Auto) 15.9 [place] % (Auto) 9.7 H Eos % (Auto) 0.5 Baso % (Auto) 0.7 Neut # (Auto) 9.4 H Lymph # (Auto) 2.0 [place] # (Auto) 1.2 H Eos # (Auto) 0.1 Baso # (Auto) 0.1 WBC Differential . Differential Comment Auto diff final Lab - Chemistry Results 11/07/17 11/08/17 11/09/17 14:46 09:10 04:39 Sodium 139 137 137 Potassium 4.6 5.0 4.8 Chloride 112 H 111 H 113 H Carbon Dioxide 14.3 L 11.9 L 12.7 L Anion Gap 13 14 11 BUN 6 L 7 6 L Creatinine 1.01 1.08 0.95 Estimated GFR 74 L 69 L 80 L Random Glucose 107 H 76 93 Calcium 8.8 9.0 8.7 Magnesium 1.2 L 1.1 L 1.4 L Imaging: ITS Impressions Abdomen/Pelvis CT 10/28/17 16:27 CONCLUSION: No acute noncontrast CT findings in the abdomen or pelvis. Physical Exam: GENERAL: awake and alert, not in respiratory distress. SKIN: Warm and dry. No generalized rash. Has ecchymoses in both UE. HEAD: Atraumatic. Normocephalic. No temporal wasting, or tenderness. EYES: [place] conjunctiva. No petechia or hemorrhage. Pupils equal, round and reactive to light. Extraocular movements full and intact. No scleral icterus. No injection or drainage. EARS, NOSE AND THROAT: Nose without bleeding or purulent nasal discharge. No sinus tenderness. Mucous membranes pink and moist. No oral lesions noted. No exudate. No oral thrush. NECK: Trachea midline. Supple and not tender, no meningeal signs CARDIOVASCULAR: Regular rate and rhythm. No murmurs, rubs or gallops heard RESPIRATORY: Clear to auscultation. Breath sounds equal bilaterally. No rales , wheezing or rhonchi ABDOMEN: Soft, not distended, min tenderness, no guarding, no rebound. Bowel sounds present and normoactive. No organomegaly. EXTREMITIES: No clubbing, cyanosis, or edema. No joint effusion, has good ROM. No calf tenderness. Well perfused and warm. NEUROLOGICAL: Non-focal. PSYCHIATRIC: Normal affect, calm and cooperative. LINE: No evidence of infection Assessment and Plan - Plan Impression Possible sepsis due to C difficile colitis, better Recurrent C difficile colitis Renal insufficiency, due to diarrhea, better Acidosis due to to bicarb loss from diarrhea Leukocytosis One (+) BC likely contaminant Recommendation Continue po Vanco dose 500 mg QID Continue Dificid. Monitor progress D/W patient regarding Vanco enema if he gets worse again, and he stated that he would not have that Rx; stated that he always gets better with oral vancomycin Avoid other systemic Abx Monitor diarrhea Monitor I/O Explained plan to the patient
[2017-11-09] MEDS: guaiFENesin/Dextromethorphan 200 MG/20 MG 10 ML UDC PO PRN ×2 (15:34→23:50)
--- NOTE | 2017-11-09 16:31 | P.PN ---
Subjective Interval history: Nurse reports that the stool count has gone from 15 down to 5. Patient denies having nausea for the past 2 days. Physical Exam Vital signs: Vital Signs 11/08/17 20:00 11/09/17 00:00 11/09/17 08:00 Temperature 98.1 F 97.8 F 97.9 F Pulse Rate 82 80 78 Respiratory Rate 18 17 17 Blood Pressure 149/82 H 132/76 141/83 H Pulse Oximetry 100 100 98 11/09/17 12:00 Temperature 98.3 F Pulse Rate 80 Respiratory Rate 18 Blood Pressure 149/91 H Pulse Oximetry 91 L Intake & Output 11/08/17 11/09/17 11/09/17 18:59 06:59 18:59 Intake Total 1600 / 1600 1480 / 1480 Balance 1600 / 1600 1480 / 1480 Intake: IV 1200 / 1200 1000 / 1000 NS + KCl 20 mEq Inj 1,000 ML @ 1000 / 1000 1000 / 1000 70 mls/hr IV.CONT .[id number] ÁLVAR[facility] Rx#:[id number] Magnesium Sulfate 1 gm/D5W 100 200 / 200 ml Premix 100 ML @ 100 mls/hr IV.SIG Q1H ÁLVARO Rx#:[id number] Oral 400 / 400 480 / 480 Other: # Voids 6 3 Date of Last Bowel Movement 11/08/17 11/09/17 # Bowel Movements 8 1 Narrative: Abdomen soft, nontender, nondistended Lying in bed, awake, alert, no acute distress Results - Labs CBC & Chem 7: 11/08/17 09:10 11/09/17 04:39 Laboratory Results - last 24 hr 11/09/17 04:39 Sodium 137 Potassium 4.8 Chloride 113 H Carbon Dioxide 12.7 L Anion Gap 11 BUN 6 L Creatinine 0.95 Estimated GFR 80 L Random Glucose 93 Calcium 8.7 Magnesium 1.4 L - Procedures none Assessment and Plan - Assessment (1) C. difficile colitis Code(s): A04.72 - Enterocolitis due to Clostridium difficile, not specified as recurrent Status: Acute (2) SHAVONNE (acute kidney injury) Code(s): N17.9 - Acute kidney failure, unspecified Status: Resolved (3) Anemia Code(s): D64.9 - Anemia, unspecified Status: Acute - Plan 62-year-old male admitted secondary to C. difficile colitis with severe dehydration, acute kidney injury, and respiratory compromise and sepsis. C. difficile colitis with persistent diarrhea. 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 vancomycin for [address] dificid. Also did not tolerate Asacol. Per GI, rpt fecal transplant o/p Improving as a stool count has gone from 15 daily to 5 now Dehydration acute kidney injury with acidosis, hypokalemia and hypomagnesemia Improving with rehydration Anemia Stable Hypertension Continue baseline treatment History of alcohol abuse Patient no longer abuses alcohol DVT prophylaxis SQ Heparin (3) Anemia Qualifiers: Anemia type: other cause
[2017-11-10] MEDS: Heparin - SQ 10,000 UNITS/ML Vial SQ SCH ×3 (05:53→22:04)
[2017-11-10] MEDS: Lisinopril 20 MG Tablet PO SCH (08:35)
[2017-11-10] MEDS: Metoprolol Tartrate 25 MG Tablet PO SCH ×2 (08:35→20:30)
[2017-11-10] MEDS: guaiFENesin 600 MG ER Tablet PO SCH ×2 (08:35→20:30)
[2017-11-10] MEDS: amLODIPine 5 MG Tablet PO SCH (08:35)
[2017-11-10] MEDS: ALPRAZolam 0.5 MG Tablet PO PRN ×2 (08:36→20:30)
[2017-11-10] MEDS: guaiFENesin/Dextromethorphan 200 MG/20 MG 10 ML UDC PO PRN ×2 (12:26→20:35)
--- NOTE | 2017-11-10 13:03 | P.PN ---
Subjective Interval history: Nursing reports the stool count overnight was about 4 bowel movements. Patient also reported that the [place] makes him nauseated. Reports having a dry cough as well Physical Exam Vital signs: Vital Signs 11/09/17 16:00 11/09/17 20:00 11/10/17 00:00 Temperature 98.2 F 98.3 F 98.2 F Pulse Rate 84 88 71 Respiratory Rate 17 18 18 Blood Pressure 152/89 H 152/84 H 150/85 H Pulse Oximetry 100 100 99 11/10/17 08:00 Temperature 97.9 F Pulse Rate 95 H Respiratory Rate 17 Blood Pressure 170/95 H Pulse Oximetry 97 Intake & Output 11/09/17 11/10/17 11/10/17 18:59 06:59 18:59 Intake Total 1500 / 1500 1480 / 1480 Output Total 600 / 600 600 / 600 Balance 900 / 900 880 / 880 Weight 68 kg Intake: IV 1000 / 1000 1000 / 1000 NS + KCl 20 mEq Inj 1,000 ML @ 1000 / 1000 1000 / 1000 70 mls/hr IV.CONT .[id number] [facility] Rx#:[id number] Oral 500 / 500 480 / 480 Output: Urine 600 / 600 600 / 600 Other: # Voids 2 Date of Last Bowel Movement 11/09/17 11/10/17 # Bowel Movements 4 4 1 Narrative: Abdomen is only minimally tender to palpation, otherwise is soft, nondistended Lying in bed, awake, alert, has a dry cough, Results - Labs CBC & Chem 7: 11/08/17 09:10 11/09/17 04:39 - Procedures none Assessment and Plan - Assessment (1) C. difficile colitis Code(s): A04.72 - Enterocolitis due to Clostridium difficile, not specified as recurrent Status: Acute (2) SHAVONNE (acute kidney injury) Code(s): N17.9 - Acute kidney failure, unspecified Status: Resolved (3) Anemia Code(s): D64.9 - Anemia, unspecified Status: Acute - Plan 62-year-old male admitted secondary to C. difficile colitis with severe dehydration, acute kidney injury, and respiratory compromise and sepsis. C. difficile colitis with persistent diarrhea. 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 vancomycin for [address] dificid. Also did not tolerate Asacol. Per GI, rpt fecal transplant o/p Improved frequency since admission but still having multiple bowel movements (4 overnight), continue vancomycin and Dificid. ID following Cough Chest x-ray to rule out pneumonia - no PNA, likely viral bronchitis. Dehydration acute kidney injury resolved Anemia Stable Hypertension Continue baseline treatment History of alcohol abuse Patient no longer abuses alcohol DVT prophylaxis SQ Heparin (3) Anemia Qualifiers: Anemia type: other cause
--- NOTE | 2017-11-10 13:36 | XR ---
EXAM DATE: 11/10/2017 1:26 PM EDT AGE/SEX: 62 years / Male INDICATIONS: . Cough. CLINICAL DATA: This is the patient's initial encounter. Patient reports that signs and symptoms have been present for 3 days and indicates a pain score of 0/10. MEDICAL/SURGICAL HISTORY: . Hypertension. Diverticulitis. Pancreatitis. Discectomy, lumbar. [place] [facility] [place]. . FINDINGS: PA and lateral views of the chest demonstrate the lungs to be symmetrically aerated without evidence of mass, infiltrate or effusion. The cardiomediastinal contours are unremarkable. Osseous structures are intact. Multiple old left-sided rib fractures. CONCLUSION: No acute intrathoracic disease. Stable examination. Electronically signed by: Aaron Mercer MD 11/10/2017 1:34 PM EDT
[2017-11-11] MEDS: guaiFENesin/Dextromethorphan 200 MG/20 MG 10 ML UDC PO PRN ×5 (00:55→22:50)
[2017-11-11] MEDS: Heparin - SQ 10,000 UNITS/ML Vial SQ SCH ×3 (06:41→22:55)
[2017-11-11] MEDS: guaiFENesin 600 MG ER Tablet PO SCH ×2 (09:30→22:42)
[2017-11-11] MEDS: amLODIPine 5 MG Tablet PO SCH (09:30)
[2017-11-11] MEDS: Metoprolol Tartrate 25 MG Tablet PO SCH ×2 (09:30→22:41)
[2017-11-11] MEDS: Lisinopril 20 MG Tablet PO SCH (09:31)
[2017-11-11] MEDS: ALPRAZolam 0.5 MG Tablet PO PRN ×2 (09:40→22:41)
--- NOTE | 2017-11-11 12:43 | P.PNIM ---
Subjective Interval history: Mr. Adams was afebrile with stable vital signs overnight; intermittent SBP in 170's. Patient does not report current complaints. Patient reports improved abdominal pain and states that he now has formed stool. Patient reports 4 bowel movements yesterday and 1 BM today. Patient states that he is breathing well. Normal urination. Physical Exam Vital signs: Vital Signs 11/10/17 16:00 11/10/17 20:00 11/11/17 00:00 Temperature 98.3 F 98.3 F 97.8 F Pulse Rate 89 92 H 94 H Respiratory Rate 18 18 18 Blood Pressure 179/95 H 125/82 150/93 H Pulse Oximetry 100 100 99 11/11/17 08:00 11/11/17 12:00 Temperature 97.9 F 98.1 F Pulse Rate 85 79 Respiratory Rate 18 18 Blood Pressure 122/84 139/81 Pulse Oximetry 99 98 Intake & Output 11/10/17 11/11/17 11/11/17 18:59 06:59 18:59 Intake Total 1800 / 1800 1240 / 1240 Balance 1800 / 1800 1240 / 1240 Intake: IV 1000 / 1000 NS + KCl 20 mEq Inj 1,000 ML @ 1000 / 1000 70 mls/hr IV.CONT .[id number] [facility] Rx#:[id number] Oral 1800 / 1800 240 / 240 Other: # Voids 5 2 3 Date of Last Bowel Movement 11/10/17 # Bowel Movements 2 4 Narrative: Gen: NAD Skin: No visible lesions Resp: CTAB; normal rate CV: Regular rate and rhythm; normal perfusion Abdomen: no pain to palpation; normal VS MSK: Grossly normal ROM and strength Neuro: Grossly normal CN; peripheral motor/sensory function Results - Labs CBC & Chem 7: 11/08/17 09:10 11/09/17 04:39 - Imaging Impressions Chest X-Ray 11/10/17 00:00 CONCLUSION: No acute intrathoracic disease. Stable examination. - Procedures none Assessment and Plan - Assessment (1) C. difficile colitis Code(s): A04.72 - Enterocolitis due to Clostridium difficile, not specified as recurrent Status: Acute (2) SHAVONNE (acute kidney injury) Code(s): N17.9 - Acute kidney failure, unspecified Status: Resolved (3) Anemia Code(s): D64.9 - Anemia, unspecified Status: Acute - Plan Mr. Adams is a 62-year-old male admitted secondary to C. difficile colitis with severe dehydration, acute kidney injury, and respiratory compromise and sepsis. C. difficile colitis Impression: admission with acute diarrhea; history of multiple prior episodes of C diff. WBC 16 K on admission; Cdiff PCR +. 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- improvement in stools -ID consulted -Continue PO Vancomycin 500mg QID -Continue PO Dificid -Consider Vanco enema if worsening if patient tolerates -Monitor I/O, diarrhea -GI consulted -patient did not tolerate Asacol -Plan for slow taper; consider repeat fecal transplant Leukocytosis -Suspected secondary to Cdiff SHAVONNE -resolved; normal renal function currently HTN Continue Lisinopril 20mg daily Continue metoprolol 25mg BID DVT PPX Continue Heparin 5k U q8hrs Code Status: Full code Discharge Planning: Per ID recommendations; currently improving (3) Anemia Qualifiers: Anemia type: other cause
[2017-11-12] MEDS: Heparin - SQ 10,000 UNITS/ML Vial SQ SCH ×2 (06:29→14:27)
[2017-11-12] MEDS: Metoprolol Tartrate 25 MG Tablet PO SCH ×2 (09:15→20:38)
[2017-11-12] MEDS: Lisinopril 20 MG Tablet PO SCH (09:15)
[2017-11-12] MEDS: guaiFENesin 600 MG ER Tablet PO SCH ×2 (09:15→20:33)
[2017-11-12] MEDS: amLODIPine 5 MG Tablet PO SCH (09:16)
[2017-11-12] MEDS: ALPRAZolam 0.5 MG Tablet PO PRN ×2 (09:24→20:33)
[2017-11-12 09:33] LABS: Baso # (Auto) 0.1 th/mm3 (0.0-0.2); Baso % (Auto) 0.8 % (0.0-2.0); Eos # (Auto) 0.1 th/mm3 (0.0-0.4); Eos % (Auto) 0.9 % (0.0-4.0); Hemoglobin 10.1 gm/dL (13.0-17.0); Lymph # (Auto) 2.7 th/mm3 (1.0-4.8); Mean Corpuscular HGB Conc 31.5 % (32.0-36.0); Mean Corpuscular Hemoglobin 28.6 pg (27.0-34.0); Mean Corpuscular Volume 90.6 fL (80.0-100.0); Mono # (Auto) 0.9 th/mm3 (0.0-0.9); Mono % (Auto) 6.1 % (0.0-8.0); Neut # (Auto) 11.2 th/mm3 (1.8-7.7); Neut % (Auto) 74.2 % (16.0-70.0); Platelet Count 614 th/mm3 (150-450); Red Blood Count 3.53 mil/mm3 (4.50-5.90); Red Cell Distribution Width 20.5 % (11.6-17.2); White Blood Count 15.1 th/mm3 (4.0-11.0)
[2017-11-12 10:01] LABS: Calcium 9.2 mg/dL (8.5-10.1); Carbon Dioxide 10.3 meq/L (21.0-32.0)
[2017-11-12 10:02] LABS: Phosphorus 3.2 mg/dL (2.5-4.9)
[2017-11-12 10:56] LABS: Lymphocytes 14 % (9-44); Metamyelocytes 1 % (0-1); Monocytes 10 % (0-8)
[2017-11-12 10:57] LABS: Burr Cells 1+; Platelet Morphology Normal (Normal)
--- NOTE | 2017-11-12 12:06 | P.PNIM ---
Subjective Interval history: Mr. Adams was afebrile with intermittent HTN overnight to max SBP 170. Patient doing well; he states that he slept well overnight. Patient reports 2 total formed BM after meals; no recent diarrhea. Patient would like to be discharged home if possible. No other concerns reported. Physical Exam Vital signs: Vital Signs 11/11/17 16:00 11/11/17 20:00 11/12/17 00:00 Temperature 98.2 F 97.7 F 97.8 F Pulse Rate 74 89 92 H Respiratory Rate 18 20 20 Blood Pressure 132/82 170/97 H 144/87 H Pulse Oximetry 99 100 97 11/12/17 08:00 Temperature 97.6 F Pulse Rate 86 Respiratory Rate 16 Blood Pressure 157/90 H Pulse Oximetry 100 Intake & Output 11/11/17 11/12/17 11/12/17 18:59 06:59 18:59 Intake Total 3640 / 3640 Balance 3640 / 3640 Intake: IV 1000 / 1000 NS + KCl 20 mEq Inj 1,000 ML @ 1000 / 1000 70 mls/hr IV.CONT .[id number] [facility] Rx#:[id number] Oral 1800 / 1800 Other 840 / 840 Other: Other Intake Source Saline Solution # Voids 4 Date of Last Bowel Movement 11/11/17 11/11/17 # Bowel Movements 1 Narrative: Gen: NAD Skin: No visible lesions Resp: CTAB; normal rate CV: Regular rate and rhythm; normal perfusion Abdomen: no pain to palpation; normal VS MSK: Grossly normal ROM and strength Neuro: Grossly normal CN; peripheral motor/sensory function Results - Labs CBC & Chem 7: 11/12/17 08:35 11/12/17 17:55 Laboratory Results - last 24 hr 11/12/17 11/12/17 11/12/17 08:35 08:35 08:35 WBC 15.1 H RBC 3.53 L Hgb 10.1 L Hct 32.0 L MCV 90.6 MCH 28.6 MCHC 31.5 L RDW 20.5 H Plt Count 614 H MPV 8.0 Prelim Diff (Auto) Slide review pending Neut % (Auto) 74.2 H Lymph % (Auto) 18.0 Wise % (Auto) 6.1 Eos % (Auto) 0.9 Baso % (Auto) 0.8 Neut # (Auto) 11.2 H Lymph # (Auto) 2.7 Wise # (Auto) 0.9 Eos # (Auto) 0.1 Baso # (Auto) 0.1 WBC Differential Manual diff final Seg Neuts % (Manual) 74 H Band Neuts % (Manual) 1 Lymphocytes % (Manual) 14 Monocytes % (Manual) 10 H Metamyelocytes % (Man) 1 Abs Neuts (Manual) 11.5 H Differential Comment . Platelet Estimate High H Platelet Morphology Normal [place] Cells 1+ H Sodium 138 Potassium 5.0 Chloride 114 H Carbon Dioxide 10.3 L Anion Gap 14 BUN 7 Creatinine 0.93 Estimated GFR 82 L Random Glucose 88 Calcium 9.2 Phosphorus 3.2 Magnesium 1.0 L Cancelled 11/12/17 08:35 WBC RBC Hgb Hct MCV MCH MCHC RDW Plt Count MPV Prelim Diff (Auto) Neut % (Auto) Lymph % (Auto) Wise % (Auto) Eos % (Auto) Baso % (Auto) Neut # (Auto) Lymph # (Auto) Wise # (Auto) Eos # (Auto) Baso # (Auto) WBC Differential Seg Neuts % (Manual) Band Neuts % (Manual) Lymphocytes % (Manual) Monocytes % (Manual) Metamyelocytes % (Man) Abs Neuts (Manual) Differential Comment Platelet Estimate Platelet Morphology Rhett Cells Sodium Potassium Chloride Carbon Dioxide Anion Gap BUN Creatinine Estimated GFR Random Glucose Calcium Phosphorus Cancelled Magnesium - Procedures none Assessment and Plan - Assessment (1) C. difficile colitis Code(s): A04.72 - Enterocolitis due to Clostridium difficile, not specified as recurrent Status: Acute (2) SHAVONNE (acute kidney injury) Code(s): N17.9 - Acute kidney failure, unspecified Status: Resolved (3) Anemia Code(s): D64.9 - Anemia, unspecified Status: Acute - Plan Mr. Adams is a 62-year-old male admitted secondary to C. difficile colitis with severe dehydration, acute kidney injury, and respiratory compromise and sepsis. C. difficile colitis Impression: admission with acute diarrhea; history of multiple prior episodes of C diff. WBC 16 K on admission; Cdiff PCR +. 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- improvement in stools -ID consulted -Continue PO Vancomycin 500mg QID -Continue PO Dificid -Consider Vanco enema if worsening if patient tolerates -Monitor I/O, diarrhea -Stable to discharge assuming WBC stable tomorrow -Plan for discharge on Vancomycin taper w/ stoppage of Dificid 11/15 assuming stable and not increasing leukocytosis -GI consulted -patient did not tolerate Asacol -Plan for GI f/u as outpatient to consider repeat fecal transplant Leukocytosis Impression: Recent WBC ~12.8- 15.1 (11/08, 11/12) -Suspected secondary to Cdiff -Continue to monitor WBC Anion gap elevation/acidosis Impression: Per discussion with ID, Anion gap persistently elevated w/ low bicarb. unclear etiology. Patient does not appear to have hypoperfusion/lactic acidosis -Will repeat lactic acid due to current infection -Will consider other etiologies SHAVONNE -resolved; normal renal function currently Hypomagnesia Impression: Mg 1 today -Will start oral supplementation with 64 U Magnesium chloride BID -Continue to monitor K HTN Impression: Persistent SBP elevations during hospitalization Will increase Lisinopril to 40mg daily Continue metoprolol 25mg BID DVT PPX Continue Heparin 5k U q8hrs Code Status: Full code Discharge Planning: Per ID recommendations; currently improving Cdiff (3) Anemia Qualifiers: Anemia type: other cause
[2017-11-12] MEDS ORDERED: Lisinopril 20 MG Tablet PO SCH (12:08)
[2017-11-12] MEDS: guaiFENesin/Dextromethorphan 200 MG/20 MG 10 ML UDC PO PRN ×2 (12:58→17:39)
--- NOTE | 2017-11-12 13:16 | P.PNID ---
Subjective Remarks: Patient is a 62-year-old male, presented to the hospital with acute onset of severe diarrhea. Patient was hospitalized recently back in August and was diagnosed to have diverticulitis along with C. difficile colitis. He had involvement of the left side of the colon and sigmoid colon. He has had multiple episodes of C. difficile colitis, and actually had 3 episodes of hospitalization in 2016, had an episode in June as well as in August 2017. When he was discharged he was on tapering doses of vancomycin, and his diarrhea actually has markedly improved. 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 It stopped , so he thought it might be just something that he ate. However the diarrhea started back again on the day of admission, and he has had intermittent abdominal pain. He is also had significant nausea and vomiting. He has had some chills but no documented fever. He has not been on any antibiotics recently other than the one when he was treated for diverticulitis back in August. On presentation here his white count was 16,000.. He is severely acidotic. Stool for C. difficile came back positive. CT of the abdomen and pelvis did not show any significant abnormality in his colon. Infectious disease consultation has been requested to evaluate the patient with recurrent C. difficile colitis. Notes reviewed Temps ok 4 stools yesterday One formed stool today Eating, no vomiting Abdominal pain is better WBC higher, 15K CO2 is only 10.3 Antibiotics: Vancomycin po Dificid Lines: No evidence of infection Past Medical History: Bacteremia due to Gram-negative bacteria Clostridium difficile diarrhea Clostridium difficile infection Diverticulitis GERD (gastroesophageal reflux disease) Herpes zoster History of diverticular abscess Hypertension Pancreatitis, alcoholic, acute S/P fecal transplant Allergies/Adverse Reactions: Allergies codeine Allergy (Severe, Verified 08/28/17 14:07) RASH ibuprofen Allergy (Severe, Verified 08/28/17 14:07) Swelling of eyes levofloxacin Allergy (Severe, Verified 08/28/17 14:07) ACHILLES TENDON PROBLEM metronidazole Allergy (Severe, Verified 08/28/17 14:07) Nausea/Vomiting Objective Vital Signs 11/11/17 16:00 11/11/17 20:00 11/12/17 00:00 Temperature 98.2 F 97.7 F 97.8 F Pulse Rate 74 89 92 H Respiratory Rate 18 20 20 Blood Pressure 132/82 170/97 H 144/87 H Pulse Oximetry 99 100 97 11/12/17 08:00 Temperature 97.6 F Pulse Rate 86 Respiratory Rate 16 Blood Pressure 157/90 H Pulse Oximetry 100 Intake & Output 11/11/17 11/12/17 11/12/17 18:59 06:59 18:59 Intake Total 3640 / 3640 Balance 3640 / 3640 Intake: IV 1000 / 1000 NS + KCl 20 mEq Inj 1,000 ML @ 1000 / 1000 70 mls/hr IV.CONT .[id number] [facility] Rx#:[id number] Oral 1800 / 1800 Other 840 / 840 Other: Other Intake Source Saline Solution # Voids 4 Date of Last Bowel Movement 11/11/17 11/11/17 # Bowel Movements 1 Lab - Hematology Results 11/12/17 08:35 WBC 15.1 H RBC 3.53 L Hgb 10.1 L Hct 32.0 L MCV 90.6 MCH 28.6 MCHC 31.5 L RDW 20.5 H Plt Count 614 H MPV 8.0 Prelim Diff (Auto) Slide review pending Neut % (Auto) 74.2 H Lymph % (Auto) 18.0 [place] % (Auto) 6.1 Eos % (Auto) 0.9 Baso % (Auto) 0.8 Neut # (Auto) 11.2 H Lymph # (Auto) 2.7 [place] # (Auto) 0.9 Eos # (Auto) 0.1 Baso # (Auto) 0.1 WBC Differential Manual diff final Seg Neuts % (Manual) 74 H Band Neuts % (Manual) 1 Lymphocytes % (Manual) 14 Monocytes % (Manual) 10 H Metamyelocytes % (Man) 1 Abs Neuts (Manual) 11.5 H Differential Comment . Platelet Estimate High H Platelet Morphology Normal Rhett Cells 1+ H Lab - Chemistry Results 11/12/17 11/12/17 11/12/17 08:35 08:35 08:35 Sodium 138 Potassium 5.0 Chloride 114 H Carbon Dioxide 10.3 L Anion Gap 14 BUN 7 Creatinine 0.93 Estimated GFR 82 L Random Glucose 88 Calcium 9.2 Phosphorus 3.2 Cancelled Magnesium 1.0 L Cancelled Imaging: ITS Impressions Abdomen/Pelvis CT 10/28/17 16:27 CONCLUSION: No acute noncontrast CT findings in the abdomen or pelvis. Chest X-Ray 11/10/17 00:00 CONCLUSION: No acute intrathoracic disease. Stable examination. Physical Exam: GENERAL: awake and alert, not in respiratory distress. SKIN: Warm and dry. No generalized rash. . HEAD: Atraumatic. Normocephalic. No temporal wasting, or tenderness. EYES: [place] conjunctiva. No petechia or hemorrhage. Pupils equal, round and reactive to light. Extraocular movements full and intact. No scleral icterus. No injection or drainage. EARS, NOSE AND THROAT: Nose without bleeding or purulent nasal discharge. No sinus tenderness. Mucous membranes pink and moist. NECK: Trachea midline. Supple and not tender, no meningeal signs CARDIOVASCULAR: Regular rate and rhythm. No murmurs, rubs or gallops heard RESPIRATORY: Clear to auscultation. Breath sounds equal bilaterally. No rales , wheezing or rhonchi ABDOMEN: Soft, not distended, not tender. Bowel sounds present and normoactive. No organomegaly. EXTREMITIES: No clubbing, cyanosis, or edema. No calf tenderness. . NEUROLOGICAL: Non-focal. PSYCHIATRIC: Normal affect, calm and cooperative. LINE: No evidence of infection Assessment and Plan - Plan Impression Possible sepsis due to C difficile colitis, better Recurrent C difficile colitis, clinically better Renal insufficiency, due to diarrhea, better Acidosis, persistent despite improvement in diarrhea, etiology? Leukocytosis, higher today One (+) BC likely contaminant Recommendation Continue po Vanco dose 500 mg QID - - plan 2 weeks of 500 QID, then 250 QID x 7 days, them 125 QID x 7 days, then taper, 125 TID x 7 days, 125 BID x 7 days, 125 QD x 7 days, 125 QOD x 7 days Continue Dificid., and finish Rx 11/[address] Daniel Kennedy to revisit the fecal transplant Repeat labs tomorrow, and if WBC stable, ok to D/C Will have medicine address the acidosis. Explained plan to the patient
[2017-11-12 19:06] LABS: Calcium 9.1 mg/dL (8.5-10.1); Carbon Dioxide 9.1 meq/L (21.0-32.0)
[2017-11-12 19:08] LABS: Potassium 5.7 meq/L (3.5-5.1)
[2017-11-12] MEDS ORDERED: Sodium Polystyrene Sulfonate/Sorbitol Liq 15 GM/60 ML UDC PO ONE (20:00)
[2017-11-13] MEDS: Heparin - SQ 10,000 UNITS/ML Vial SQ SCH ×3 (02:12→13:22)
[2017-11-13] MEDS: guaiFENesin 600 MG ER Tablet PO SCH (09:05)
[2017-11-13] MEDS: amLODIPine 5 MG Tablet PO SCH (09:05)
[2017-11-13] MEDS: Metoprolol Tartrate 25 MG Tablet PO SCH (09:05)
[2017-11-13] MEDS: ALPRAZolam 0.5 MG Tablet PO PRN (09:18)
[2017-11-13] MEDS: guaiFENesin/Dextromethorphan 200 MG/20 MG 10 ML UDC PO PRN ×3 (09:18→17:46)
[2017-11-13 09:54] VITALS: RESP 17
[2017-11-13 11:31] LABS: Baso # (Auto) 0.1 th/mm3 (0.0-0.2); Eos # (Auto) 0.1 th/mm3 (0.0-0.4); Eos % (Auto) 1.1 % (0.0-4.0); Hematocrit 31.2 % (39.0-51.0); Hemoglobin 10.3 gm/dL (13.0-17.0); Lymph % (Auto) 15.3 % (9.0-44.0); Mean Corpuscular Hemoglobin 29.2 pg (27.0-34.0); Mean Corpuscular Volume 88.4 fL (80.0-100.0); Mean Platelet Volume 8.1 fL (7.0-11.0); Mono % (Auto) 7.5 % (0.0-8.0); Neut # (Auto) 9.7 th/mm3 (1.8-7.7); Neut % (Auto) 75.1 % (16.0-70.0); Platelet Count 579 th/mm3 (150-450); Red Blood Count 3.53 mil/mm3 (4.50-5.90); Red Cell Distribution Width 20.2 % (11.6-17.2); White Blood Count 12.9 th/mm3 (4.0-11.0)
[2017-11-13 11:52] LABS: Calcium 8.8 mg/dL (8.5-10.1); Carbon Dioxide 14.8 meq/L (21.0-32.0); Potassium 4.4 meq/L (3.5-5.1)
[2017-11-13 12:29] LABS: Eosinophils 2 % (0-4); Lymphocytes 13 % (9-44); Monocytes 2 % (0-8)
[2017-11-13 12:30] LABS: Platelet Morphology Normal (Normal); Toxic Granulation 2+
--- NOTE | 2017-11-13 15:05 | P.PNIM ---
Subjective Interval history: Mr. Adams was afebrile with stable VS overnight. Patient states he had formed bowel movement. Patient feels normally and states he would like to go home; no new complaints. In discussing patient's unexplained anion gap elevation/ low bicarb, he is agreeable to close follow-up with his PCP Dr. Collado in the near future and would prefer to go home rather than address further as inpatient. Physical Exam Vital signs: Vital Signs 11/12/17 20:00 11/13/17 00:00 11/13/17 08:00 Temperature 98 F 97.8 F 98.0 F Pulse Rate 97 H 97 H 97 H Respiratory Rate 17 18 17 Blood Pressure 146/88 H 145/89 H 131/73 Pulse Oximetry 100 99 98 11/13/17 12:00 Temperature 97.9 F Pulse Rate 79 Respiratory Rate 17 Blood Pressure 110/79 Pulse Oximetry 98 Intake & Output 11/12/17 11/13/17 11/13/17 18:59 06:59 18:59 Intake Total 240 / 240 Balance 240 / 240 Intake: Oral 240 / 240 Other: # Voids 3 Date of Last Bowel Movement 11/11/17 11/12/17 11/12/17 Narrative: Gen: NAD Skin: No visible lesions Resp: CTAB; normal rate CV: Regular rate and rhythm; normal perfusion Abdomen: no pain to palpation; normal BS MSK: Grossly normal ROM and strength Neuro: Grossly normal CN; peripheral motor/sensory function Results - Labs CBC & Chem 7: 11/13/17 10:54 11/13/17 10:34 Laboratory Results - last 24 hr 11/12/17 11/12/17 11/13/17 17:55 19:46 10:34 WBC RBC Hgb Hct MCV MCH MCHC RDW Plt Count MPV Prelim Diff (Auto) Neut % (Auto) Lymph % (Auto) [place] % (Auto) Eos % (Auto) Baso % (Auto) Neut # (Auto) Lymph # (Auto) [place] # (Auto) Eos # (Auto) Baso # (Auto) WBC Differential Seg Neuts % (Manual) Band Neuts % (Manual) Lymphocytes % (Manual) Monocytes % (Manual) Eosinophils % (Manual) Abs Neuts (Manual) Differential Comment Toxic Granulation Platelet Estimate Platelet Morphology Sodium 134 L 137 Potassium 5.7 H 4.4 D Chloride 111 H 112 H Carbon Dioxide 9.1 L 14.8 L Anion Gap 14 10 BUN 8 11 Creatinine 0.95 1.22 Estimated GFR 80 L 60 L Random Glucose 79 97 Lactic Acid 0.5 Calcium 9.1 8.8 11/13/17 10:54 WBC 12.9 H RBC 3.53 L Hgb 10.3 L Hct 31.2 L MCV 88.4 MCH 29.2 MCHC 33.0 RDW 20.2 H Plt Count 579 H MPV 8.1 Prelim Diff (Auto) Slide review pending Neut % (Auto) 75.1 H Lymph % (Auto) 15.3 [place] % (Auto) 7.5 Eos % (Auto) 1.1 Baso % (Auto) 1.0 Neut # (Auto) 9.7 H Lymph # (Auto) 2.0 [place] # (Auto) 1.0 H Eos # (Auto) 0.1 Baso # (Auto) 0.1 WBC Differential Manual diff final Seg Neuts % (Manual) 79 H Band Neuts % (Manual) 4 Lymphocytes % (Manual) 13 Monocytes % (Manual) 2 Eosinophils % (Manual) 2 Abs Neuts (Manual) 10.7 H Differential Comment . Toxic Granulation 2+ H Platelet Estimate High H Platelet Morphology Normal Sodium Potassium Chloride Carbon Dioxide Anion Gap BUN Creatinine Estimated GFR Random Glucose Lactic Acid Calcium - Procedures none Assessment and Plan - Assessment (1) C. difficile colitis Code(s): A04.72 - Enterocolitis due to Clostridium difficile, not specified as recurrent Status: Acute (2) SHAVONNE (acute kidney injury) Code(s): N17.9 - Acute kidney failure, unspecified Status: Resolved (3) Anemia Code(s): D64.9 - Anemia, unspecified Status: Acute - Plan Mr. Adams is a 62-year-old male admitted secondary to C. difficile colitis with severe dehydration, acute kidney injury, and respiratory compromise and sepsis. C. difficile colitis Impression: admission with acute diarrhea; history of multiple prior episodes of C diff. WBC 16 K on admission; Cdiff PCR +. 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- improvement in stools -ID consulted -Continue PO Vancomycin 500mg QID -Continue PO Dificid until 11/15 -Consider Vanco enema if worsening if patient tolerates -Monitor I/O, diarrhea -Stable to discharge assuming WBC stable -plan for discharge on Vancomycin taper w/ stoppage of Dificid 11/15 -GI consulted -patient did not tolerate Asacol -Plan for outpatient f/u to discuss fecal transplant further -Plan for GI f/u as outpatient to consider repeat fecal transplant Leukocytosis Impression: Suspect secondary to Cdiff WBC 12.8 11/08-> 15.1 11/12-> 12.9 11/13 -Will f/u as outpatient -Since stable, ok to discharge Anion gap elevation/acidosis Impression: Per discussion with ID, Anion gap persistently elevated w/ low bicarb. unclear etiology. Patient does not appear to have hypoperfusion/lactic acidosis. No respiratory concerns or obvious offending medication Repeat lactic acid 0.5 11/12 -Discussed further evaluation w/ ABG as inpatient; patient declined and would prefer to address with PCP after discharge -Will order repeat BMP to assess anion gap prior to PCP follow-up SHAVONNE -resolved; normal renal function currently Hypomagnesia Impression: Mg 1 11/12 -Continue oral supplementation with 64 U Magnesium chloride BID -Continue to monitor K HTN Impression: Persistent SBP elevations during hospitalization -Continue Lisinopril 40mg daily -Continue metoprolol 25mg BID DVT PPX Continue Heparin 5k U q8hrs Code Status: Full code Discharge Planning: Will discharge today on oral Vancomycin taper. Will plan for f/u with PCP for further evaluation of metabolic acidosis (3) Anemia Qualifiers: Anemia type: other cause
[2017-11-13 16:49] VITALS: BP 145/74; PULSE 86; TEMP 98.2; O2SAT 100
--- NOTE | 2017-11-14 22:06 | P.DS ---
Date of admission: 10/28/17 19:45 Primary care physician: Yamil Collado DO Brief History from admission: Per HPI on admission: 62-year-old gentleman with history of relapsing Clostridium difficile colitis, status post recent fecal transplant by Dr. Kennedy, presents today been with another onset of severe diarrhea. The patient denies fever chills, nausea, vomiting or any associated symptoms. DS: Diagnosis - Discharge Diagnosis (1) C. difficile colitis Status: Acute (2) Anemia Status: Acute DS: Medications - Discharge Medications Prescriptions: alprazolam [Xanax] 0.5 mg PO BID PRN 3 Days #6 tab PRN Reason: Moderate To Severe Anxiety amlodipine [Norvasc] 5 mg PO DAILY #30 tab fidaxomicin [Dificid] 200 mg PO BID #6 tab lisinopril 40 mg PO DAILY #30 tab magnesium chloride [Mag 64] 64 mg PO BID #60 tab ondansetron [Zofran ODT] 4 mg PO BID PRN #10 tab PRN Reason: Nausea And Vomiting tramadol [Ultram] 50 mg PO Q6H PRN 3 Days #12 tab PRN Reason: Acute Pain 1-10 vancomycin See Label Instructions .ROUTE .COMPLEX #31 gm DS: Summary Hospital Course: Mr. 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 Patient septic on admission with SHAVONNE, and respiratory compromise. Patient given oral vancomycin, IV Flagyl, and aggressive IV hydration. GI and infectious disease consulted. Patient treated with Vancomycin and Dificid during hospitalization. His SHAVONNE resolved. During hospitalization, patient had persistent leukocytosis which improved. Patient also had persistent anion gap elevation and low bicarb; lactic acid normalized and patient did not show any suggestion of hypoperfusion. Patient deemed stable for discharge home 11/12 with prolonged oral vanc taper per ID and planned f/u with GI for consideration of repeat fecal transplant. Patient elected to work-up of anion gap elevation further as an outpatient with his PCP. - Time Spent with Patient Total time spent providing and/or coordinating discharge services: - Quality: VTE Deep Vein Thrombosis/Pulmonary Embolism Present on Admission: No Exam Vital signs: Vital Signs (72 hours) 11/12/17 00:00 11/12/17 08:00 11/12/17 12:00 Temperature 97.8 F 97.6 F 97.4 F L Pulse Rate 92 H 86 79 Respiratory Rate 20 16 17 Blood Pressure 144/87 H 157/90 H 125/78 Pulse Oximetry 97 100 98 11/12/17 20:00 11/13/17 00:00 11/13/17 08:00 Temperature 98 F 97.8 F 98.0 F Pulse Rate 97 H 97 H 97 H Respiratory Rate 17 18 17 Blood Pressure 146/88 H 145/89 H 131/73 Pulse Oximetry 100 99 98 11/13/17 12:00 11/13/17 16:00 Temperature 97.9 F 98.2 F Pulse Rate 79 86 Respiratory Rate 17 17 Blood Pressure 110/79 145/74 H Pulse Oximetry 98 100 Narrative: Gen: NAD Skin: No visible lesions Resp: CTAB; normal rate CV: Regular rate and rhythm; normal perfusion Abdomen: no pain to palpation; normal BS MSK: Grossly normal ROM and strength Neuro: Grossly normal CN; peripheral motor/sensory function Results Procedures completed during hospitalization: none - Impressions ITS Impressions Abdomen/Pelvis CT 10/28/17 16:27 CONCLUSION: No acute noncontrast CT findings in the abdomen or pelvis. Chest X-Ray 11/10/17 00:00 CONCLUSION: No acute intrathoracic disease. Stable examination. Discharge Plan - Discharge Disposition Patient Disposition: /[facility] - Discharge Condition Condition: Stable - Discharge Order Discharge Orders: Discharge Order (Routine); Ordered 11/13/17 Ordered By: Chad Douglas - Discharge Details Anticipated Discharge Date: 11/13/17 - Physicians Team Primary Care Provider: Yamil Collado Attending Provider: Chad Douglas Other Providers: Yaa Kelly MD ; Ton Marsh MD ; Miguel Kennedy MD
== END 2017-11-13 18:44 | disposition home or self-care (01) ==
LOC: NEPC 16:22 → NEDA 19:45 → HIMC 23:05 → N07 10-31 14:11
PROVIDERS: ADMIT Family Medicine; ATTEND Family Medicine
DX: B96.89 Other specified bacterial agents as the cause of diseases classified elsewhere; E87.2 Acidosis; Z88.5 Allergy status to narcotic agent; D64.9 Anemia, unspecified; Z79.899 Other long term (current) drug therapy; F12.90 Cannabis use, unspecified, uncomplicated; A04.71 Enterocolitis due to Clostridium difficile, recurrent; K21.9 Gastro-esophageal reflux disease without esophagitis; F10.10 Alcohol abuse, uncomplicated; N17.9 Acute kidney failure, unspecified; E87.6 Hypokalemia; E86.0 Dehydration; I10 Essential (primary) hypertension; R65.20 Severe sepsis without septic shock; E83.42 Hypomagnesemia; A41.9 Sepsis, unspecified organism

== ENCOUNTER 2017-12-28 11:43 | Observation (INO) ==
[2017-12-28 14:18] LABS: Clarity,Urine Clear (Clear); Color,Urine Yellow (Yellw/Straw); Glucose,Urine (UA) Negative (Negative); Leukocyte Esterase,Urine Negative (Negative); Nitrite,Urine Negative (Negative); Specific Gravity,Urine 1.025 (1.002-1.035); Urobilinogen,Urine 0.2 mg/dL (Less than 2)
[2017-12-28 14:21] LABS: Baso # (Auto) 0.4 th/mm3 (0.0-0.2); Baso % (Auto) 1.9 % (0.0-2.0); Eos # (Auto) 0.1 th/mm3 (0.0-0.4); Eos % (Auto) 0.3 % (0.0-4.0); Hematocrit 35.5 % (39.0-51.0); Mean Corpuscular HGB Conc 33.8 % (32.0-36.0); Mean Corpuscular Hemoglobin 30.1 pg (27.0-34.0); Mean Platelet Volume 8.5 fL (7.0-11.0); Mono # (Auto) 1.4 th/mm3 (0.0-0.9); Mono % (Auto) 7.6 % (0.0-8.0); Neut # (Auto) 14.1 th/mm3 (1.8-7.7); Neut % (Auto) 74.2 % (16.0-70.0); Platelet Count 504 th/mm3 (150-450); Red Blood Count 3.98 mil/mm3 (4.50-5.90); Red Cell Distribution Width 15.3 % (11.6-17.2)
[2017-12-28 14:25] LABS: Bilirubin,Urine Negative (Negative); Ictotest,Urine Negative (Negative)
[2017-12-28 14:29] LABS: Chloride 107 meq/L (98-107); Sodium 133 meq/L (136-145)
[2017-12-28 14:30] LABS: Squamous Epithelial Cell,Urine 0-5 /hpf (0-5); WBC,Urine 0-5 /hpf (0-5)
[2017-12-28] MEDS ORDERED: Sod Chloride 0.9% Inj 1,000 ML IV.SIG SCH (14:30)
[2017-12-28 14:32] LABS: Calcium 9.6 mg/dL (8.5-10.1)
[2017-12-28 14:33] LABS: Anion Gap 12 meq/L (5-15); Blood Urea Nitrogen 40 mg/dL (7-18); Carbon Dioxide 14.5 meq/L (21.0-32.0); Glucose,Random 111 mg/dL (74-106); Lipase 485 U/L (73-393)
[2017-12-28 14:35] LABS: Alanine Aminotransferase 18 U/L (12-78); Aspartate Aminotransferase 24 U/L (15-37)
[2017-12-28 14:36] LABS: Glomerular Filtration Rate 34 mL/min (>89); Potassium 5.2 meq/L (3.5-5.1)
[2017-12-28 14:37] LABS: Total Protein 8.3 g/dL (6.4-8.2)
[2017-12-28 14:38] LABS: Alkaline Phosphatase 81 U/L (45-117)
--- NOTE | 2017-12-28 14:38 | ED ---
HPI General Chief Complaint: Abdominal Pain Stated Complaint: Abd pain x Wednesday Source: patient Mode of arrival: ambulatory Limitations: no limitations History of Present Illness HPI narrative: 62-year-old male patient with history of frequent episodes of C. difficile diarrhea, last had a stool transplant on Wednesday, diverticulitis, presents to the ER today for 3 days history of left lower quadrant abdominal pains which she currently rates an 8 out of 10. He has had some nausea, does not feel like eating, and states that he has have small bouts of diarrhea again which she states is watery, nonbloody or black stools. He denies any recent fevers or other symptoms. Related Data Home Medications Medication Instructions Recorded Confirmed alprazolam 0.5 mg PO QAM AND QHS 10/29/17 12/28/17 lisinopril 20 mg PO DAILY 12/28/17 12/28/17 Previous Rx's Medication Instructions Recorded amlodipine [Norvasc] 5 mg PO DAILY #30 tab 11/13/17 Allergies Allergy/AdvReac Type Severity Reaction Status Date / Time codeine Allergy Severe RASH Verified 12/28/17 13:28 ibuprofen Allergy Severe Swelling Verified 12/28/17 13:28 levofloxacin Allergy Severe ACHILLES Verified 12/28/17 13:28 TENDON PROBLEM metronidazole Allergy Severe Nausea/Vomi Verified 12/28/17 13:28 ting Review of Systems ROS: all other systems reviewed are negative [facility] Medical History Medical History Bacteremia due to Gram-negative bacteria (Acute) Clostridium difficile diarrhea (Acute) Clostridium difficile infection (Acute) Diverticulitis (Acute) GERD (gastroesophageal reflux disease) (Acute) Herpes zoster (Acute) History of diverticular abscess (Acute) Hypertension (Acute) Pancreatitis, alcoholic, acute (Acute) S/P fecal transplant (Acute) Social History Social History Substance History: No History of Abuse Second Hand Smoke Exposure: No Smoking Status: Never smoker How Often Do You Have a Drink Containing Alcohol: Never Recent Travel in [place] within the Last 8 Weeks: No Recent Out of Country Travel within the Last 8 Weeks: No Immunization History Tetanus Immunization: Never Vaccinated Hx Influenza Vaccine This Season: Yes Exam Narrative Exam Narrative: GENERAL: Well-developed elderly white male patient currently in mild to moderate distress. Awake and oriented 3. SKIN: Focused skin assessment warm/dry. HEAD: Atraumatic. Normocephalic. EYES: Pupils equal and round. No scleral icterus. No injection or drainage. ENT: No nasal bleeding or discharge. Mucous membranes pink and moist. NECK: Trachea midline. No JVD. CARDIOVASCULAR: Regular rate and rhythm. No murmur appreciated. RESPIRATORY: No accessory muscle use. Clear to auscultation. Breath sounds equal bilaterally. GASTROINTESTINAL: Abdomen soft, left lower quadrant tenderness without guarding or rebound, nondistended. Hepatic and splenic margins not palpable. MUSCULOSKELETAL: No obvious deformities. No clubbing. No cyanosis. No edema. NEUROLOGICAL: Awake and alert. No obvious cranial nerve deficits. Motor grossly within normal limits. Normal speech. PSYCHIATRIC: Appropriate mood and affect; insight and judgment normal. Course Initial Documented Vital Signs Temperature 97.8 F 12/28/17 12:24 Pulse Rate 109 H 12/28/17 12:24 Respiratory Rate 20 12/28/17 12:24 Blood Pressure 126/84 12/28/17 12:24 Pulse Oximetry 100 12/28/17 12:24 Last Documented Vital Signs Temperature 97.8 F 12/28/17 12:24 Pulse Rate 82 12/28/17 15:02 Respiratory Rate 18 12/28/17 15:02 Blood Pressure 127/87 12/28/17 15:02 Pulse Oximetry 99 12/28/17 15:02 Medical Decision Making [facility] Narrative Medical decision making narrative: Lab work shows significant leukocytosis with elevated BUN and creatinine concerning for dehydration, his lipase is elevated as well. At this point, CAT scan returns not show any signs of acute intra- abdominal processes. However, considering his symptoms and signs of dehydration , my plan would be to admit the patient for further evaluation and treatment with IV fluids. Medical Screen Exam Complete: Yes Emergency Medical Condition: Yes Differential Diagnosis Differential Diagnosis: Gastritis versus gastroenteritis versus diarrhea versus colitis versus diverticulitis Lab Data Result diagrams: 12/28/17 14:14 12/28/17 14:14 Lab Results 12/28/17 12/28/17 12/28/17 Range/Units 14:10 14:14 14:14 CBC w Diff Auto diff final WBC 19.0 H (4.0-11.0) th/mm3 RBC 3.98 L (4.50-5.90) mil/mm3 Hgb 12.0 L (13.0-17.0) gm/dL Hct 35.5 L (39.0-51.0) % MCV 89.0 (80.0-100.0) fL MCH 30.1 (27.0-34.0) pg MCHC 33.8 (32.0-36.0) % RDW 15.3 (11.6-17.2) % Plt Count 504 H (150-450) th/mm3 MPV 8.5 (7.0-11.0) fL Neut % (Auto) 74.2 H (16.0-70.0) % Lymph % (Auto) 16.0 (9.0-44.0) % [place] % (Auto) 7.6 (0.0-8.0) % Eos % (Auto) 0.3 (0.0-4.0) % Baso % (Auto) 1.9 (0.0-2.0) % Neut # (Auto) 14.1 H (1.8-7.7) th/mm3 Lymph # (Auto) 3.0 (1.0-4.8) th/mm3 [place] # (Auto) 1.4 H (0.0-0.9) th/mm3 Eos # (Auto) 0.1 (0.0-0.4) th/mm3 Baso # (Auto) 0.4 H (0.0-0.2) th/mm3 WBC Differential . Differential Comment . Sodium 133 L (136-145) meq/L Potassium 5.2 H (3.5-5.1) meq/L Chloride 107 (98-107) meq/L Carbon Dioxide 14.5 L (21.0-32.0) meq/L Anion Gap 12 (5-15) meq/L BUN 40 H (7-18) mg/dL Creatinine 2.00 H (0.60-1.30) mg/dL Estimated GFR 34 L (>89) mL/min Random Glucose 111 H (74-106) mg/dL Calcium 9.6 (8.5-10.1) mg/dL Total Bilirubin 0.6 (0.2-1.0) mg/dL AST 24 (15-37) U/L ALT 18 (12-78) U/L Alkaline Phosphatase 81 (45-117) U/L Total Protein 8.3 H (6.4-8.2) g/dL Albumin 4.0 (3.4-5.0) g/dL Lipase 485 H (73-393) U/L Ur Collection Type Clean catch Urine Color Yellow (Yellw/Straw) Urine Clarity Clear (Clear) Urine pH 6.0 (5.0-8.5) Ur Specific [place] 1.025 (1.002-1.035) Urine Protein Trace (Neg-Trace) mg/dL Urine Glucose (UA) Negative (Negative) mg/dL Urine Ketones Negative (Negative) mg/dL Urine Occult Blood Negative (Negative) Urine Nitrate Negative (Negative) Urine Bilirubin Negative (Negative) Urine Ictotest Negative (Negative) Urine Urobilinogen 0.2 (Less than 2) mg/dL Ur Leukocyte Esterase Negative (Negative) Urine WBC 0-5 (0-5) /hpf Ur Squamous Epith Cells 0-5 (0-5) /hpf Micro UA Comment Culture not ind Ur Microscopic Review Microscopic reviewed Urine Culture Comments Culture not ind Imaging Data Attestation: I personally reviewed and interpreted this imaging study as follows : Radiologist's impression: Abdomen/Pelvis CT 12/28/17 14:22 CONCLUSION: 1. Stable 1.9 cm cyst lower pole left kidney. 2. Scattered diverticula along the descending and sigmoid colon without inflammatory changes. 3. No new or acute pathology. No significant changes. Discharge Plan Discharge Disposition Patient Disposition: 30 Still Patient Discharge Condition Condition: Stable Discharge Details Anticipated Discharge Date: 12/28/17 Diagnosis: Diarrhea, Pancreatitis, Acute dehydration Physicians Team ED Provider: Devan Gallego Primary Care Provider: Yamil Collado Rxs /Orders / Referrals /Forms Prescriptions: No Action lisinopril 40 mg tablet 20 mg PO DAILY RF: 0 alprazolam 0.5 mg 0.5 mg PO QAM AND QHS RF: 0 amlodipine [Norvasc] 5 mg Tablet 5 mg PO DAILY Qty: 30 RF: 0 Status ED Status: With Nurse
--- NOTE | 2017-12-28 15:10 | CT ---
EXAM DATE: 12/28/2017 3:01 PM EDT AGE/SEX: 62 years / Male INDICATIONS: Lower abdominal pain for three days. CLINICAL DATA: This is the patient's initial encounter. Patient reports that signs and symptoms have been present for 3 days and indicates a pain score of 6/10. MEDICAL/SURGICAL HISTORY: Gastroesophageal reflux disease. Pancreatitis. Diverticulitis. Hyp ertension. Fecal transplant for C-diff. . Left hip replacement. RADIATION DOSE: 8.10 CTDI (mGy) COMPARISON: [facility] [place], CT ABDOMEN & PELVIS W/O CONTRAST, 10/28/2017. . TECHNIQUE: Multiple contiguous axial images were obtained through the abdomen. Images were obtained using multiple row detector helical technique. Using automated exposure control and adjustment of the mA and/or kV according to patient size, radiation dose was kept as low as reasonably achievable to o btain optimal diagnostic quality images. DICOM format image data is available electronically for rev iew and comparison. Lack of IV contrast limits the diagnosis for certain organ pathology. FINDINGS: Lower Lungs: The visualized lower lungs are clear. Liver: The liver has a homogeneous density without space-occupying lesion. There is no dilation of th e biliary tree. Gallbladder unremarkable. Spleen: Homogeneous density without enlargement. Pancreas: Unremarkable without mass or calcification. Kidneys: Normal in size and shape. No evidence of mass or hydronephrosis. Stable 1.9 cm cyst lower p ole left kidney. No calcified renal stones. Adrenal Glands: Unremarkable. Aorta: The aorta and proximal iliac vessels are grossly unremarkable without aneurysmal dilation. Bowel/Mesentery: The bowel loops are grossly unremarkable. The cecum and sigmoid colon have a normal configuration. The appendix is unremarkable. There is some scattered diverticula of the descending a nd sigmoid colon without inflammatory changes. No free fluid or loculated fluid collections. Abdominal Wall: Intact. Retroperitoneum: No evidence of adenopathy in the retrocrural, para-aortic, or deep pelvic regions. Bladder: Limited visualization due to streak artifact from the left hip prosthesis. Reproductive Organs: No abnormal masses or calcifications seen. Inguinal: The inguinal region is unremarkable without evidence of adenopathy. Bony Structures: Degenerative changes. Left hip prosthesis. Mild old compression along the superior endplate of T11. No significant changes. No new or significant changes compared to the prior examination. CONCLUSION: 1. Stable 1.9 cm cyst lower pole left kidney. 2. Scattered diverticula along the descending and sigmoid colon without inflammatory changes. 3. No new or acute pathology. No significant changes. Electronically signed by: Aaron Mercer MD 12/28/2017 3:08 PM EDT
[2017-12-28] MEDS ORDERED: Acetaminophen 325 MG Tablet PO PRN (16:12)
[2017-12-28] MEDS ORDERED: Bisacodyl 10 MG Supp RECTAL PRN (16:12)
[2017-12-28] MEDS ORDERED: Morphine Inj 4 MG/ML Vial IV.PUSH PRN (16:17)
[2017-12-28] MEDS: Sod Chloride 0.9% Inj 1,000 ML IV.CONT SCH (16:30)
[2017-12-28] MEDS: Enoxaparin Inj 40 MG/0.4 ML Syringe SQ SCH (16:30)
[2017-12-29] MEDS: Piperacil/Tazo 3.375 GM Premix 50 ML IV.SIG SCH ×3 (00:18→13:52)
[2017-12-29] MEDS: Sod Chloride 0.9% Inj 1,000 ML IV.CONT SCH ×2 (03:04→13:53)
[2017-12-29 06:28] LABS: Baso # (Auto) 0.1 th/mm3 (0.0-0.2); Baso % (Auto) 0.6 % (0.0-2.0); Eos # (Auto) 0.1 th/mm3 (0.0-0.4); Eos % (Auto) 1.6 % (0.0-4.0); Hematocrit 30.7 % (39.0-51.0); Hemoglobin 9.7 gm/dL (13.0-17.0); Lymph # (Auto) 1.4 th/mm3 (1.0-4.8); Lymph % (Auto) 16.6 % (9.0-44.0); Mean Corpuscular HGB Conc 31.6 % (32.0-36.0); Mean Corpuscular Hemoglobin 28.9 pg (27.0-34.0); Mean Corpuscular Volume 91.5 fL (80.0-100.0); Mean Platelet Volume 7.9 fL (7.0-11.0); Mono # (Auto) 0.5 th/mm3 (0.0-0.9); Mono % (Auto) 6.3 % (0.0-8.0); Neut # (Auto) 6.5 th/mm3 (1.8-7.7); Neut % (Auto) 74.9 % (16.0-70.0); Platelet Count 372 th/mm3 (150-450); Red Blood Count 3.36 mil/mm3 (4.50-5.90); Red Cell Distribution Width 15.3 % (11.6-17.2); White Blood Count 8.6 th/mm3 (4.0-11.0)
[2017-12-29 06:40] LABS: Calcium 8.9 mg/dL (8.5-10.1)
[2017-12-29 06:41] LABS: Carbon Dioxide 17.9 meq/L (21.0-32.0)
--- NOTE | 2017-12-29 10:13 | P.HP ---
History of Present Illness Primary Care Physician: Yamil Collado DO Chief Complaint: Abdominal pain History of Present Illness: 62-year-old male with rather extensive history of Clostridium difficile who has had multiple admissions in the hospital. He is undergoing outpatient management and last Wednesday he did undergo fecal transplant. Patient states that he was doing well. Had no postprocedure side effects. Patient was eating well, solid bowel movements. Then Wednesday he started developing some cramping in his lower abdomen which continue to persist through Wednesday. Patient states he had no energy. He went to bed by 5 PM that night. Because he still had a discomfort on Wednesday he came to the emergency department for evaluation. During the last 2 days he is not eating much. He has been drinking Gatorade. He denies any alcohol intake. Patient had workup done emergency department and found to have elevated lipase. Leukocytosis, signs of dehydration. Patient was given IV fluids and recommend admission to the hospital. Follow-up labs show significant improvement with complete resolution of the leukocytosis. Kidney functions are improving. Patient denies any further abdominal pain, patient denied any nausea, vomiting, diarrhea. Patient is feeling much better. Very eager to go home. - Diagnosis (1) Elevated lipase (2) Acute renal failure (ARF) (3) Acute dehydration Review of Systems All other systems reviewed negative except as stated in HPI Gastrointestinal: Reports abdominal pain PMFSH - History History Provided By: Patient - Medical History Medical History: Medical History (Last Updated 12/29/17 @ 10:07 by ROLANDO Santa) Alcohol related seizure History of alcoholism Bacteremia due to Gram-negative bacteria Clostridium difficile diarrhea Clostridium difficile infection Diverticulitis GERD (gastroesophageal reflux disease) Herpes zoster History of diverticular abscess Hypertension Pancreatitis, alcoholic, acute S/P fecal transplant - Surgical History Surgical History: Surgical History (Last Updated 12/29/17 @ 10:07 by ROLANDO Santa) History of Achilles tendon repair History of cervical spinal surgery History of chest tube placement History of lumbosacral spine surgery Status post hip hemiarthroplasty - Family History Family History: Family History (Last Updated 12/29/17 @ 10:08 by ROLANDO Santa) Other History of dementia History of heart disease - Tobacco History Second Hand Smoke Exposure: No Smoking Status: Never smoker - Alcohol History How Often Do You Have a Drink Containing Alcohol: Never - Substance Use History Substance History: No History of Abuse - Travel History Recent Travel in the [place] Within the Last 8 Weeks: No Recent Travel Out of the Country Within the Last 8 Weeks: No - Immunization History Tetanus Immunization: Never Vaccinated Hx Influenza Vaccine This Season: Yes Medications and Allergies Active Medications: Active Medications Acetaminophen (Tylenol) 650 mg PO Q4H PRN PRN Reason: Headache, fever, pain 1-5 Hydrocodone Bitart/Acetaminophen ([place] 7.5/325) 1 tab PO Q6H PRN PRN Reason: Pain 6-10. Last Admin: 12/29/17 09:34 Dose: 1 tab Al Hydroxide/Mg Hydroxide (Milk Of Magnesia Liq) 30 ml PO Q12H PRN PRN Reason: Mild Constipation Bisacodyl (Dulcolax Supp) 10 mg RECTAL DAILY PRN PRN Reason: SEVERE CONSITIPATION Enoxaparin Sodium (Lovenox Inj) 40 mg SQ Q24H ÁLVARO Last Admin: 12/28/17 16:30 Dose: 40 mg Sodium Chloride (Ns Inj) 1,000 mls @ 0 mls/hr IV.SIG BOLUS [facility] Last Infusion: 12/28/17 16:26 Dose: Infused Sodium Chloride (Ns Inj) 1,000 mls @ 100 mls/hr IV.CONT .Q10H [facility] Last Admin: 12/29/17 03:04 Dose: 100 mls/hr Piperacillin/Tazobactam/Dextrose (Zosyn 3.375 Gm Premix) 50 mls @ 100 mls/hr IV.SIG Q6H [facility] Last Infusion: 12/29/17 05:44 Dose: Infused Lactulose (Lactulose Liq) 30 ml PO DAILY PRN PRN Reason: SEVERE CONSITIPATION Morphine Sulfate (Morphine Inj) 4 mg IV.PUSH Q4H PRN PRN Reason: BREAKTHROUGH PAIN Last Admin: 12/28/17 20:22 Dose: 4 mg Ondansetron HCl (Zofran Inj) 4 mg IV.PUSH Q6H PRN PRN Reason: NAUSEA OR VOMITING Last Admin: 12/28/17 20:21 Dose: 4 mg Sennosides (Senokot) 17.2 mg PO Q12H PRN PRN Reason: Moderate Constipation Sodium Chloride (Ns Flush) 2 ml IV.FLUSH PRN PRN PRN Reason: FLUSH AFTER USING IV ACCESS Last Admin: 12/28/17 15:13 Dose: 2 ml Allergies Allergy/AdvReac Type Severity Reaction Status Date / Time codeine Allergy Severe RASH Verified 12/28/17 13:28 ibuprofen Allergy Severe Swelling Verified 12/28/17 13:28 levofloxacin Allergy Severe ACHILLES Verified 12/28/17 13:28 TENDON PROBLEM metronidazole Allergy Severe Nausea/Vomi Verified 12/28/17 13:28 ting Home Medications Medication Instructions Recorded Confirmed Type alprazolam 0.5 mg PO QAM AND QHS 10/29/17 12/28/17 History lisinopril 20 mg PO DAILY 12/28/17 12/28/17 History Exam Vital signs: Vital Signs 12/28/17 12:24 12/28/17 13:34 12/28/17 15:02 Temperature 97.8 F Pulse Rate 109 H 83 82 Respiratory Rate 20 18 18 Blood Pressure 126/84 115/83 127/87 Pulse Oximetry 100 99 99 12/28/17 16:13 12/28/17 20:00 12/29/17 00:00 Temperature 96.5 F L 96.4 F L Pulse Rate 72 80 87 Respiratory Rate 18 20 20 Blood Pressure 117/74 144/92 H 123/82 Pulse Oximetry 100 99 12/29/17 08:00 Temperature 96.1 F L Pulse Rate 81 Respiratory Rate 18 Blood Pressure 118/75 Pulse Oximetry 99 Intake & Output 12/28/17 12/29/17 12/29/17 18:59 06:59 18:59 Intake Total 1000 / 1000 1100 / 1100 Balance 1000 / 1000 1100 / 1100 Weight 60.8 kg 60.7 kg Intake: IV 1000 / 1000 1100 / 1100 NS Inj 1,000 ML @ 100 mls/hr IV 1000 / 1000 .CONT .Q10H ÁLVARO Rx#:[id number] Zosyn 3.375 GM Premix 50 ML @ 100 / 100 100 mls/hr IV.SIG Q6H ÁLVARO Rx#: [id number] NS Inj 1,000 ML @ Wide Open IV. 1000 / 1000 SIG BOLUS ÁLVARO Rx#:[id number] Oral 0 / 0 Other: # Voids 5 # Bowel Movements 3 Narrative: GENERAL: Well-developed, well-nourished, in no acute distress. alert and orientated HEENT: Head is normocephalic without any lesions or masses noted. Facial features are symmetric. Eyes: Pupils equal round reactive to light. Extraocular muscles are intact. Conjunctivae were clear. Oropharyngeal: Pharynx without any erythema edema. Tongue is midline without deviation. Buccal mucosa is moist without any masses or lesions NECK: Supple without any masses. Trachea midline no deviation. No JVD, no bruits are appreciated CARDIAC: Regular rhythm, regular rate. S1/S2 are heard. No murmurs gallops or rubs. LUNGS: Clear to auscultation bilaterally. No wheeze, rhonchi or rales. No use of accessory muscles on inspiration or expiration. ABDOMEN: Soft, nontender. Nondistended. Bowel sounds heard in all 4 quadrants. No organomegaly or masses. Negative rebound, negative guarding EXTREMITIES: No edema, pulses are equal bilaterally. No cyanosis or clubbing NEUROLOGY: Mood and affect appear appropriate. Cranial nerves II through XII grossly intact. Muscle strength 5/5 in upper and lower extremities bilaterally. Deep tendon reflexes are 2+ in upper and lower extremities bilaterally. Results - Labs CBC & Chem 7: 12/29/17 05:55 12/29/17 05:55 Labs: Laboratory Results - last 24 hr 12/28/17 12/28/17 12/28/17 14:10 14:14 14:14 CBC w Diff Auto diff final WBC 19.0 H RBC 3.98 L Hgb 12.0 L Hct 35.5 L MCV 89.0 MCH 30.1 MCHC 33.8 RDW 15.3 Plt Count 504 H MPV 8.5 Neut % (Auto) 74.2 H Lymph % (Auto) 16.0 [place] % (Auto) 7.6 Eos % (Auto) 0.3 Baso % (Auto) 1.9 Neut # (Auto) 14.1 H Lymph # (Auto) 3.0 [place] # (Auto) 1.4 H Eos # (Auto) 0.1 Baso # (Auto) 0.4 H WBC Differential . Differential Comment . Sodium 133 L Potassium 5.2 H Chloride 107 Carbon Dioxide 14.5 L Anion Gap 12 BUN 40 H Creatinine 2.00 H Estimated GFR 34 L Random Glucose 111 H Calcium 9.6 Total Bilirubin 0.6 AST 24 ALT 18 Alkaline Phosphatase 81 Total Protein 8.3 H Albumin 4.0 Lipase 485 H Ur Collection Type Clean catch Urine Color Yellow Urine Clarity Clear Urine pH 6.0 Ur Specific [place] 1.025 Urine Protein Trace Urine Glucose (UA) Negative Urine Ketones Negative Urine Occult Blood Negative Urine Nitrate Negative Urine Bilirubin Negative Urine Ictotest Negative Urine Urobilinogen 0.2 Ur Leukocyte Esterase Negative Urine WBC 0-5 Ur Squamous Epith Cells 0-5 Micro UA Comment Culture not ind Ur Microscopic Review Microscopic reviewed Urine Culture Comments Culture not ind St C. diff Tox Epid 027 C. difficile Tox (PCR) 12/28/17 12/29/17 12/29/17 20:30 05:55 05:55 CBC w Diff Auto diff final WBC 8.6 D RBC 3.36 L Hgb 9.7 L D Hct 30.7 L MCV 91.5 MCH 28.9 MCHC 31.6 L RDW 15.3 Plt Count 372 MPV 7.9 Neut % (Auto) 74.9 H Lymph % (Auto) 16.6 [place] % (Auto) 6.3 Eos % (Auto) 1.6 Baso % (Auto) 0.6 Neut # (Auto) 6.5 Lymph # (Auto) 1.4 [place] # (Auto) 0.5 Eos # (Auto) 0.1 Baso # (Auto) 0.1 WBC Differential . Differential Comment . Sodium 142 Potassium 5.0 Chloride 113 H Carbon Dioxide 17.9 L Anion Gap 11 BUN 37 H Creatinine 1.80 H Estimated GFR 38 L Random Glucose 84 Calcium 8.9 Total Bilirubin AST ALT Alkaline Phosphatase Total Protein Albumin Lipase Ur Collection Type Urine Color Urine Clarity Urine pH Ur Specific [place] Urine Protein Urine Glucose (UA) Urine Ketones Urine Occult Blood Urine Nitrate Urine Bilirubin Urine Ictotest Urine Urobilinogen Ur Leukocyte Esterase Urine WBC Ur Squamous Epith Cells Micro UA Comment Ur Microscopic Review Urine Culture Comments St C. diff Tox Epid 027 Negative C. difficile Tox (PCR) Negative - Imaging Impressions Abdomen/Pelvis CT 12/28/17 14:22 CONCLUSION: 1. Stable 1.9 cm cyst lower pole left kidney. 2. Scattered diverticula along the descending and sigmoid colon without inflammatory changes. 3. No new or acute pathology. No significant changes. Caprini VTE Risk Assessment Caprini VTE Risk Assessment: No/Low Risk (score <= 1) Caprini Risk Assessment Model: Point Value = 1 Point Value = 2 Point Value = 3 Point Value = 5 Age 41-60 Minor surgery BMI > 25 kg/m2 Swollen legs Varicose veins or History of unexplained or recurrent spontaneous Oral contraceptives or hormone replacement Sepsis (< 1 month) Serious lung disease, including pneumonia (< 1 month) Abnormal pulmonary function Acute myocardial infarction Congestive heart failure (< 1 month) History of inflammatory bowel disease Medical patient at bed rest Age 61-74 Arthroscopic surgery Major open surgery (> 45 min) Laparoscopic surgery (> 45 min) Malignancy Confined to bed (> 72 hours) Immobilizing plaster cast Central venous access Age >= 75 History of VTE Family history of VTE Factor V Leiden Prothrombin [id number] Lupus anticoagulant Anticardiolipin antibodies Elevated serum homocysteine Heparin-induced thrombocytopenia Other congenital or acquired thrombophilia Stroke (< 1 month) Elective arthroplasty Hip, pelvis, or leg fracture Acute spinal cord injury (< 1 month) Prophylaxis Regimen: Total Risk Factor Score Risk Level Prophylaxis Regimen 0-1 Low Early ambulation 2 Moderate Order ONE of the following: *Sequential Compression Device (SCD) *Heparin 5000 units SQ BID 3-4 Higher Order ONE of the following medications: *Heparin 5000 units SQ TID *Enoxaparin/Lovenox 40 mg SQ daily (WT < 150 kg, CrCl > 30 mL/min) *Enoxaparin/Lovenox 30 mg SQ daily (WT < 150 kg, CrCl > 10-29 mL/min) *Enoxaparin/Lovenox 30 mg SQ BID (WT < 150 kg, CrCl > 30 mL/min) AND/OR *Sequential Compression Device (SCD) 5 or more Highest Order ONE of the following medications: *Heparin 5000 units SQ TID (Preferred with Epidurals) *Enoxaparin/Lovenox 40 mg SQ daily (WT < 150 kg, CrCl > 30 mL/min) *Enoxaparin/Lovenox 30 mg SQ daily (WT < 150 kg, CrCl > 10-29 mL/min) *Enoxaparin/Lovenox 30 mg SQ BID (WT < 150 kg, CrCl > 30 mL/min) AND *Sequential Compression Device (SCD) Assessment and Plan - Assessment (1) Elevated lipase Code(s): R74.8 - Abnormal levels of other serum enzymes Status: Acute (2) Acute renal failure (ARF) Code(s): N17.9 - Acute kidney failure, unspecified Status: Acute (3) Acute dehydration Code(s): E86.0 - Dehydration Status: Acute - Plan Systemic inflammatory response syndrome, resolved -Patient met criteria on admission with tachycardia, leukocytosis. No signs of acute infection. Likely secondary to acute dehydration, renal failure -Leukocytosis has resolved -CT the abdomen pelvis and the indicate any acute abnormality -Analysis was unremarkable Acute renal failure superimposed on chronic kidney disease stage III with associated hyperkalemia, improved -secondary to dehydration -Patient just recently underwent colon prep and fecal transplant. Patient is not ate or drink much in the last 48 hours -Continue IV fluids -Renal functions have improved after IV fluid administration Elevated lipase -CT scan does not indicate any acute pancreatic abnormality -We will advance diet -Continue IV fluids -Follow-up lipase level DVT prevention -Low risk, early ambulation
[2017-12-29 13:11] VITALS: O2SAT 100
[2017-12-29] MEDS: Enoxaparin Inj 40 MG/0.4 ML Syringe SQ SCH (16:49)
[2017-12-29] MEDS ORDERED: amLODIPine 5 MG Tablet PO ONE (17:46)
[2017-12-29 22:10] VITALS: RESP 20
[2017-12-30 01:08] VITALS: TEMP 96.6
[2017-12-30 07:32] VITALS: BP 131/79; PULSE 81
--- NOTE | 2017-12-30 08:34 | P.PN ---
Subjective Interval history: 62-year-old male who is seen and examined today for follow-up on elevated lipase, dehydration. Patient is doing much better at this time. He is tolerating diet. Lipase level has returned to complete normal. Patient is clinically stable. Vital signs are stable. Patient is afebrile. Physical Exam Vital signs: Vital Signs 12/29/17 10:04 12/29/17 12:00 12/29/17 16:00 Temperature 96.7 F L 98.6 F Pulse Rate 105 H 77 Respiratory Rate 18 18 18 Blood Pressure 136/82 179/94 H Pulse Oximetry 100 100 12/29/17 17:56 12/29/17 20:00 12/30/17 00:00 Temperature 97.4 F L 96.6 F L Pulse Rate 82 76 Respiratory Rate 18 20 20 Blood Pressure 119/75 117/86 Pulse Oximetry 100 100 12/30/17 07:31 Temperature 96.6 F L Pulse Rate 81 Respiratory Rate 20 Blood Pressure 131/79 Pulse Oximetry 100 Intake & Output 12/29/17 12/30/17 12/30/17 18:59 06:59 18:59 Intake Total 2059 / 0 2200 / 2200 Balance 2059 / 0 2200 / 2200 Weight 67 kg Intake: IV 900 / 900 100 / 100 NS Inj 1,000 ML @ 100 mls/hr IV 900 / 900 100 / 100 .CONT .Q10H ÁLVARO Rx#:[id number] Oral 1160 / 1160 2100 / 2100 Other: # Voids 5 8 Date of Last Bowel Movement 12/29/17 # Bowel Movements 2 1 Narrative: GENERAL: Well-developed, well-nourished, in no acute distress. alert and orientated HEENT: Head is normocephalic without any lesions or masses noted. Facial features are symmetric. Eyes: Extraocular muscles are intact. Conjunctivae were clear. NECK: Supple without any masses. Trachea midline no deviation. No JVD, CARDIAC: Regular rhythm, regular rate. S1/S2 are heard. No murmurs gallops or rubs. LUNGS: Clear to auscultation bilaterally. No wheeze, rhonchi or rales. No use of accessory muscles on inspiration or expiration. ABDOMEN: Soft, nontender. Nondistended. Bowel sounds heard in all 4 quadrants. No organomegaly or masses. Negative rebound, negative guarding EXTREMITIES: No edema, pulses are equal bilaterally. No cyanosis or clubbing NEUROLOGY: Mood and affect appear appropriate. Cranial nerves II through XII grossly intact. Moving all extremities, speech is clear Results - Labs CBC & Chem 7: 12/29/17 05:55 12/29/17 05:55 Laboratory Results - last 24 hr 12/29/17 12/29/17 12/30/17 05:55 17:05 07:00 Lipase 2144 H 754 H 119 Assessment and Plan - Assessment (1) Elevated lipase Code(s): R74.8 - Abnormal levels of other serum enzymes Status: Acute (2) Acute renal failure (ARF) Code(s): N17.9 - Acute kidney failure, unspecified Status: Acute (3) Acute dehydration Code(s): E86.0 - Dehydration Status: Acute - Plan Systemic inflammatory response syndrome, resolved -Patient met criteria on admission with tachycardia, leukocytosis. No signs of acute infection. Likely secondary to acute dehydration, renal failure -Leukocytosis has resolved -CT the abdomen pelvis and the indicate any acute abnormality -Urinalysis was unremarkable Acute renal failure superimposed on chronic kidney disease stage III with associated hyperkalemia, improved -secondary to dehydration -Patient just recently underwent colon prep and fecal transplant. Patient is not ate or drink much in the last 48 hours -Renal functions have improved after IV fluid administration Elevated lipase, resolved -CT scan does not indicate any acute pancreatic abnormality -Diet advanced -Follow-up lipase level DVT prevention -Low risk, early ambulation Discharge Planning: Discharge home in stable condition if patient tolerates diet Activity: Ad jazmin. Diet: [Healthy heart diet] Medication per medication reconciliation Follow-up with primary medical doctor in 1 week
[2017-12-30] MEDS ORDERED: amLODIPine 5 MG Tablet PO SCH (09:00)
[2017-12-30] MEDS ORDERED: Lisinopril 20 MG Tablet PO SCH (09:00)
== END 2017-12-30 09:13 | disposition home or self-care (01) ==
LOC: PHEDA 11:43 → PHED 11:43 → PH3 18:07
PROVIDERS: ADMIT Hospitalist; ATTEND Hospitalist

== ENCOUNTER 2018-02-06 14:38 | Inpatient (IN) ==
[2018-02-06] MEDS ORDERED: Sod Chloride 0.9% Inj 1,000 ML IV.SIG ONE (15:01)
--- NOTE | 2018-02-06 15:10 | ED ---
HPI General Chief complaint: Nausea/Vomiting/Diarrhea Stated complaint: Dehydration Time Seen by Provider: 02/06/18 14:53 Source: patient Mode of arrival: ambulatory Limitations: no limitations History of Present Illness HPI Narrative: Patient is 62-year-old male who presents the emergency room with complaints of abdominal pain with nausea, vomiting and diarrhea. Patient reports that he has had history of recurrent C. 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 Patient reports that since Wednesday, he has been having multiple episodes of diarrhea. Reports that symptoms were similar to when he was diagnosed with diverticulitis in the past, reports that his diarrhea went away briefly yesterday afternoon. Reports that around 4:30am this morning, he began to have recurrent diarrhea. Patient reports that he has had about 9 episodes of diarrhea this morning. Reports that he is also feeling nauseous and did vomit. Patient is also complaining of lower abdominal pain which is nonradiating in nature. Patient reports that he has not been on any antibiotics recently. No sick contacts. No other complaints. Patient does endorse that on night, he did eat spaghetti sauce, reports that Red Sau[employer] usually "tares up my stomach but I ate it anyways" - reports that this may have exacerbated his symptoms. Related Data Home Medications Medication Instructions Recorded Confirmed alprazolam 0.5 mg PO QAM AND QHS 10/29/17 02/06/18 lisinopril 20 mg PO DAILY 12/28/17 02/06/18 Previous Rx's Medication Instructions Recorded amlodipine [Norvasc] 5 mg PO DAILY #30 tab 11/13/17 Allergies Allergy/AdvReac Type Severity Reaction Status Date / Time codeine Allergy Severe RASH Verified 02/06/18 14:49 ibuprofen Allergy Severe Swelling Verified 02/06/18 14:49 levofloxacin Allergy Severe ACHILLES Verified 02/06/18 14:49 TENDON PROBLEM metronidazole Allergy Severe Nausea/Vomi Verified 02/06/18 14:49 ting Review of Systems ROS: all other systems reviewed are negative PMFSH History History Provided By: Patient Medical History Medical History Alcohol related seizure (Acute) Bacteremia due to Gram-negative bacteria (Acute) Clostridium difficile diarrhea (Acute) Clostridium difficile infection (Acute) Diverticulitis (Acute) GERD (gastroesophageal reflux disease) (Acute) Herpes zoster (Acute) History of alcoholism (Acute) History of diverticular abscess (Acute) Hypertension (Acute) Pancreatitis, alcoholic, acute (Acute) S/P fecal transplant (Acute) Surgical History Surgical History History of Achilles tendon repair (Acute) History of cervical spinal surgery (Acute) History of chest tube placement (Acute) History of lumbosacral spine surgery (Acute) Status post hip hemiarthroplasty (Acute) Family History Family History Other History of dementia History of heart disease Social History Social History Substance History: Active Abuse Second Hand Smoke Exposure: No Smoking Status: Never smoker How Often Do You Have a Drink Containing Alcohol: 4 or more times a week [facility] within the Last 8 Weeks: No Recent Out of Country Travel within the Last 8 Weeks: No Exam Narrative Exam Narrative: GENERAL: Mild distress SKIN: Focused skin assessment warm/dry. HEAD: Atraumatic. Normocephalic. EYES: Pupils equal and round. No scleral icterus. No injection or drainage. ENT: No nasal bleeding or discharge. Mucous membranes pink and moist. NECK: Trachea midline. No JVD. CARDIOVASCULAR: Regular rate and rhythm. No murmur appreciated. RESPIRATORY: No accessory muscle use. Clear to auscultation. Breath sounds equal bilaterally. GASTROINTESTINAL: Abdomen soft, non-tender, nondistended. Hepatic and splenic margins not palpable. MUSCULOSKELETAL: No obvious deformities. No clubbing. No cyanosis. No edema. NEUROLOGICAL: Awake and alert. No obvious cranial nerve deficits. Motor grossly within normal limits. Normal speech. PSYCHIATRIC: Appropriate mood and affect; insight and judgment normal. Course Initial Documented Vital Signs Temperature 98.4 F 02/06/18 14:47 Pulse Rate 130 H 02/06/18 14:47 Respiratory Rate 16 02/06/18 14:47 Blood Pressure 112/83 02/06/18 14:47 Pulse Oximetry 99 02/06/18 14:47 Last Documented Vital Signs Temperature 98.4 F 02/06/18 14:47 Pulse Rate 130 H 02/06/18 14:47 Respiratory Rate 16 02/06/18 14:47 Blood Pressure 112/83 02/06/18 14:47 Pulse Oximetry 99 02/06/18 14:47 Medical Decision Making MDM Narrative Medical decision making narrative: During the course of the patients emergency department visit, the patients history, examination, and differential diagnosis were reviewed with the patient. The patient was placed on a ethnic origins teacher with oximetry and frequent blood pressure monitoring. The patient had an IV access obtained and blood work sent for analysis. The patient was initially provided IVF as well as IV zofran Stool cultures were ordered The patients laboratory studies were reviewed and remarkable for wbc 15.2, hemoglobin 13.1, hematocrit 40, platelets 424 Sodium 135, potassium 4.4, chloride 103, carbon dioxide 40.7, BUN 38, creatinine 2.10 CT of the abdomen and pelvis shows probable early colitis extending to the transverse colon new when compared to prior studies. Patient with continued tachycardia with leukocytosis, he does meet SIRS criteria. Patient will be given a dose of Zosyn for treatment of colitis, he does have an allergy to Flagyl as well as Levaquin. Patient is agreeable to plan of care. Case reviewed with Dr. Ye who accepts pt to service Medical Screen Exam Complete: Yes Emergency Medical Condition: Yes Differential Diagnosis Differential Diagnosis: Diverticulitis, C. difficile colitis, gastritis, gastroenteritis, electrolyte abnormality Medical Records Medical records reviewed: Yes I reviewed the patient's medical records. Lab Data Result diagrams: 02/06/18 15:21 02/06/18 15:21 Lab Results 02/06/18 02/06/18 02/06/18 Range/Units 15:21 15:21 16:10 CBC w Diff Auto diff final WBC 15.2 H (4.0-11.0) th/mm3 RBC 4.43 L (4.50-5.90) mil/mm3 Hgb 13.1 (13.0-17.0) gm/dL Hct 40.0 (39.0-51.0) % MCV 90.3 (80.0-100.0) fL MCH 29.5 (27.0-34.0) pg MCHC 32.6 (32.0-36.0) % RDW 16.0 (11.6-17.2) % Plt Count 424 (150-450) th/mm3 MPV 8.4 (7.0-11.0) fL Neut % (Auto) 79.1 H (16.0-70.0) % Lymph % (Auto) 12.5 (9.0-44.0) % Winn % (Auto) 5.3 (0.0-8.0) % Eos % (Auto) 0.1 (0.0-4.0) % Baso % (Auto) 3.0 H (0.0-2.0) % Neut # (Auto) 12.0 H (1.8-7.7) th/mm3 Lymph # (Auto) 1.9 (1.0-4.8) th/mm3 Winn # (Auto) 0.8 (0.0-0.9) th/mm3 Eos # (Auto) 0.0 (0.0-0.4) th/mm3 Baso # (Auto) 0.5 H (0.0-0.2) th/mm3 WBC Differential . Differential Comment . Sodium 135 L (136-145) meq/L Potassium 4.4 (3.5-5.1) meq/L Chloride 103 (98-107) meq/L Carbon Dioxide 14.7 L (21.0-32.0) meq/L Anion Gap 17 H (5-15) meq/L BUN 38 H (7-18) mg/dL Creatinine 2.10 H (0.60-1.30) mg/dL Estimated GFR 32 L (>89) mL/min Random Glucose 81 (74-106) mg/dL Calcium 9.5 (8.5-10.1) mg/dL Total Bilirubin 0.5 (0.2-1.0) mg/dL AST 23 (15-37) U/L ALT 23 (12-78) U/L Alkaline Phosphatase 85 (45-117) U/L Total Protein 8.8 H (6.4-8.2) g/dL Albumin 4.5 (3.4-5.0) g/dL Lipase 344 (73-393) U/L Ur Collection Type Clean catch Urine Color Yellow (Yellw/Straw) Urine Clarity Clear (Clear) Urine pH 5.5 (5.0-8.5) Ur Specific [place] Greater/equal 1.030 (1.002-1.035) Urine Protein Trace (Neg-Trace) mg/dL Urine Glucose (UA) Negative (Negative) mg/dL Urine Ketones Trace H (Negative) mg/dL Urine Occult Blood Negative (Negative) Urine Nitrate Negative (Negative) Urine Bilirubin Negative (Negative) Urine Ictotest Negative (Negative) Urine Urobilinogen 0.2 (Less than 2) mg/dL Ur Leukocyte Esterase Small H (Negative) Urine RBC 0-3 (0-3) /hpf Urine WBC 9-20 H (0-5) /hpf Urine WBC Clumps Few H (None) Ur Squamous Epith Cells 0-5 (0-5) /hpf Ur Transition Epith Cell 1-5 H (None) /hpf Micro UA Comment Culture indicated Ur Microscopic Review Microscopic reviewed Urine Culture Comments Culture indicated Imaging Data Radiologist's impression: Abdomen/Pelvis CT 02/06/18 15:01 CONCLUSION: 1. Probable early colitis extending into transverse colon new from the comparison study. Discharge Plan Discharge Disposition Patient Disposition: 30 Still Patient Discharge Condition Condition: Stable Discharge Details Diagnosis: SIRS (systemic inflammatory response syndrome), Colitis Physicians Team ED Provider: Omayra Brooke Primary Care Provider: Yamil Collado Rxs /Orders / Referrals /Forms Prescriptions: No Action lisinopril 40 mg tablet 20 mg PO DAILY RF: 0 alprazolam 0.5 mg 0.5 mg PO QAM AND QHS RF: 0 amlodipine [Norvasc] 5 mg Tablet 5 mg PO DAILY Qty: 30 RF: 0 Status ED Status: With Doctor
[2018-02-06] MEDS ORDERED: Sod Chloride 0.9% Inj 1,000 ML IV.SIG SCH (15:15)
[2018-02-06 15:36] LABS: Baso # (Auto) 0.5 th/mm3 (0.0-0.2); Eos % (Auto) 0.1 % (0.0-4.0); Hemoglobin 13.1 gm/dL (13.0-17.0); Lymph # (Auto) 1.9 th/mm3 (1.0-4.8); Lymph % (Auto) 12.5 % (9.0-44.0); Mean Corpuscular HGB Conc 32.6 % (32.0-36.0); Mean Corpuscular Hemoglobin 29.5 pg (27.0-34.0); Mean Corpuscular Volume 90.3 fL (80.0-100.0); Mean Platelet Volume 8.4 fL (7.0-11.0); Mono # (Auto) 0.8 th/mm3 (0.0-0.9); Mono % (Auto) 5.3 % (0.0-8.0); Neut % (Auto) 79.1 % (16.0-70.0); Platelet Count 424 th/mm3 (150-450); Red Blood Count 4.43 mil/mm3 (4.50-5.90); White Blood Count 15.2 th/mm3 (4.0-11.0)
[2018-02-06 15:40] LABS: Chloride 103 meq/L (98-107); Potassium 4.4 meq/L (3.5-5.1); Sodium 135 meq/L (136-145)
[2018-02-06] MEDS ORDERED: Morphine Inj 4 MG/ML Vial IV.PUSH ONE (15:42)
[2018-02-06 15:43] LABS: Albumin 4.5 g/dL (3.4-5.0); Anion Gap 17 meq/L (5-15); Blood Urea Nitrogen 38 mg/dL (7-18); Calcium 9.5 mg/dL (8.5-10.1); Carbon Dioxide 14.7 meq/L (21.0-32.0); Glucose,Random 81 mg/dL (74-106); Lipase 344 U/L (73-393)
[2018-02-06 15:46] LABS: Alanine Aminotransferase 23 U/L (12-78); Aspartate Aminotransferase 23 U/L (15-37); Glomerular Filtration Rate 32 mL/min (>89)
[2018-02-06 15:48] LABS: Total Protein 8.8 g/dL (6.4-8.2)
[2018-02-06 15:49] LABS: Alkaline Phosphatase 85 U/L (45-117)
[2018-02-06 16:17] LABS: Clarity,Urine Clear (Clear); Color,Urine Yellow (Yellw/Straw); Glucose,Urine (UA) Negative (Negative); Leukocyte Esterase,Urine Small (Negative); Nitrite,Urine Negative (Negative); PH,Urine 5.5 (5.0-8.5); Specific Gravity,Urine Greater/Equal 1.030 (1.002-1.035); Urobilinogen,Urine 0.2 mg/dL (Less than 2)
--- NOTE | 2018-02-06 16:29 | CT ---
EXAM DATE: 02/06/2018 3:01 PM EDT AGE/SEX: 62 years / Male INDICATIONS: Lower abdominal pain with nausea, vomiting, and diarrhea. CLINICAL DATA: This is the patient's initial encounter. Patient reports that signs and symptoms have been present for 3 days and indicates a pain score of 6/10. MEDICAL/SURGICAL HISTORY: Diverticulitis. Gastroesophageal reflux disease. Pancreatitis. Hyp ertension. . Fecal transplant. Spine surgery. RADIATION DOSE: 8.03 CTDI (mGy) COMPARISON: [facility], CT ABDOMEN & PELVIS W/O CONTRAST, 12/28/2017. . TECHNIQUE: Multiple contiguous axial images were obtained through the abdomen. Images were obtained using multiple row detector helical technique. Using automated exposure control and adjustment of the mA and/or kV according to patient size, radiation dose was kept as low as reasonably achievable to o btain optimal diagnostic quality images. DICOM format image data is available electronically for rev iew and comparison. FINDINGS: Minimal fissural thickening is present left lower lung. There are no infiltrates. The liver is free of focal defects. Gallbladder is prominent The pancreas and spleen are unremarkable Adrenals unremarkable. Minimal perinephric stranding about the right kidney without stone. Perinephric stranding about the left kidney with a 1.5 cm cyst lower pole. There is minimal bowel wall thickening in the ascending and transverse colon suggesting a mild coliti s. There is no adenopathy. There is no free air In the pelvis are scattered diverticuli in the sigmoid colon without inflammatory changes. Scattered fluid-filled nondilated loops of small bowel are noted CONCLUSION: 1. Probable early colitis extending into transverse colon new from the comparison study. Electronically signed by: Bairon Mendes MD 02/06/2018 4:27 PM EDT
[2018-02-06] MEDS ORDERED: Piperacil/Tazo 3.375 GM Premix 50 ML IV.SIG ONE (16:55)
[2018-02-06 16:58] LABS: Bilirubin,Urine Negative (Negative); Ictotest,Urine Negative (Negative)
[2018-02-06 16:59] LABS: RBC,Urine 0-3 /hpf (0-3); Squamous Epithelial Cell,Urine 0-5 /hpf (0-5)
[2018-02-06] MEDS ORDERED: Bisacodyl 10 MG Supp RECTAL PRN (18:59)
[2018-02-06] MEDS ORDERED: Acetaminophen 325 MG Tablet PO PRN (18:59)
[2018-02-06 19:59] LABS: VBG Base Excess -9.7 mmol/L (-2-2); VBG PCO2 35 mmHG (44-48); VBG PH 7.28 (7.360-7.400); VBG PO2 42 mmHG (35-40)
[2018-02-06] MEDS: Sod Chloride 0.9% Inj 1,000 ML IV.CONT SCH (20:40)
[2018-02-06] MEDS: Senna/Docusate Sodium 8.6/50 MG Tablet PO SCH (20:40)
[2018-02-06] MEDS ORDERED: ALPRAZolam 0.5 MG Tablet PO ONE (23:25)
[2018-02-07 00:43] VITALS: O2SAT 98
[2018-02-07] MEDS: Sod Chloride 0.9% Inj 1,000 ML IV.CONT SCH (05:23)
[2018-02-07 05:26] VITALS: TEMP 98.5
[2018-02-07 06:13] LABS: Baso % (Auto) 0.5 % (0.0-2.0); Eos # (Auto) 0.1 th/mm3 (0.0-0.4); Eos % (Auto) 1.1 % (0.0-4.0); Hematocrit 29.4 % (39.0-51.0); Hemoglobin 9.6 gm/dL (13.0-17.0); Lymph # (Auto) 1.6 th/mm3 (1.0-4.8); Lymph % (Auto) 19.9 % (9.0-44.0); Mean Corpuscular HGB Conc 32.7 % (32.0-36.0); Mean Corpuscular Hemoglobin 29.7 pg (27.0-34.0); Mean Corpuscular Volume 90.8 fL (80.0-100.0); Mean Platelet Volume 8.2 fL (7.0-11.0); Mono # (Auto) 0.8 th/mm3 (0.0-0.9); Mono % (Auto) 10.4 % (0.0-8.0); Neut # (Auto) 5.3 th/mm3 (1.8-7.7); Neut % (Auto) 68.1 % (16.0-70.0); Platelet Count 322 th/mm3 (150-450); Red Blood Count 3.23 mil/mm3 (4.50-5.90); White Blood Count 7.8 th/mm3 (4.0-11.0)
[2018-02-07 06:26] LABS: Chloride 110 meq/L (98-107); Potassium 4.1 meq/L (3.5-5.1); Sodium 138 meq/L (136-145)
[2018-02-07 06:41] LABS: Alanine Aminotransferase 16 U/L (12-78); Albumin 3.2 g/dL (3.4-5.0); Alkaline Phosphatase 59 U/L (45-117); Anion Gap 10 meq/L (5-15); Aspartate Aminotransferase 15 U/L (15-37); Blood Urea Nitrogen 34 mg/dL (7-18); Calcium 7.8 mg/dL (8.5-10.1); Carbon Dioxide 17.7 meq/L (21.0-32.0); Glomerular Filtration Rate 47 mL/min (>89); Glucose,Random 79 mg/dL (74-106); Total Protein 6.2 g/dL (6.4-8.2)
--- NOTE | 2018-02-07 13:08 | P.HP ---
History of Present Illness Primary Care Physician: Yamil Collado DO Chief Complaint: Diarrhea History of Present Illness: 62-year-old male who is well-known to the hospital for recurrent admissions for diarrhea, dehydration. 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 The patient had recent admission and testing was negative for any recurrence. Patient states that he was doing well up until Wednesday after he ate spaghetti and meatballs he did have some loose stools but it did resolve. Patient was doing well until Wednesday morning when he started having significant watery diarrhea and started developing muscle cramps. Because of those symptoms C new that he is dehydrated again so he came to the hospital for evaluation. Patient had workup done emergency department found to have acute kidney injury, signs of dehydration. Patient was recommended admission for further evaluation and management. Upon seeing the patient today he is doing much better. He is no longer experiencing any diarrhea. Patient's renal functions and signs of dehydration have significant improved. Patient is eating without any signs of nausea or vomiting. Patient is eager to go home. Patient denies any fever or chills. - Diagnosis (1) Diarrhea (2) Acute renal failure (ARF) Inpatient Certification: I certify that the inpatient services were ordered in accordance with Medicare regulations governing the order. This includes certification that hospital inpatient services are reasonable and necessary and in the case of services not specified as inpatient-only under 42 CFR 419.22(n), that they are appropriately provided as inpatient services in accordance to with the 2-midnight benchmark under 43 CFR 412.3(e) Estimated Total Length of Stay (Days): 3 Plans for Post Hospital Care: Not yet determined Review of Systems All other systems reviewed negative except as stated in HPI Gastrointestinal: Reports change in stools, Reports loose stools Musculoskeletal: Reports muscle cramps PMFSH - History History Provided By: Patient - Medical History Medical History: Medical History (Last Reviewed 02/07/18 @ 13:03 by ROLANDO Santa) Alcohol related seizure Bacteremia due to Gram-negative bacteria Clostridium difficile diarrhea Clostridium difficile infection Diverticulitis GERD (gastroesophageal reflux disease) Herpes zoster History of alcoholism History of diverticular abscess Hypertension Pancreatitis, alcoholic, acute S/P fecal transplant - Surgical History Surgical History: Surgical History (Last Reviewed 02/07/18 @ 13:03 by ROLANDO Santa) History of Achilles tendon repair History of cervical spinal surgery History of chest tube placement History of lumbosacral spine surgery Status post hip hemiarthroplasty - Family History Family History: Family History (Last Reviewed 02/07/18 @ 13:03 by ROLANDO Santa) Other History of dementia History of heart disease - Tobacco History Second Hand Smoke Exposure: No Tobacco Use In Past 30 Days: No (smokes medical marijuana) Smoking Status: Never smoker - Alcohol History How Often Do You Have a Drink Containing Alcohol: 2 to 3 times a week - Substance Use History Substance History: No History of Abuse - Substance Use Type Marijuana Status: Active Route Used: Inhalation Reason for Use: Calm Down Comment: medical reason - Travel History Recent Travel in the [place] Within the Last 8 Weeks: No Recent Travel Out of the Country Within the Last 8 Weeks: No - Immunization History Tetanus Immunization: >5 Years Hx Influenza Vaccine This Season: No Medications and Allergies Active Medications: Active Medications Acetaminophen (Tylenol) 650 mg PO Q4H PRN PRN Reason: Temp > 100.4 Hydrocodone Bitart/Acetaminophen ([place] 5/325) 1 tab PO Q4H PRN PRN Reason: pain 1 to 10 Last Admin: 02/07/18 08:38 Dose: 1 tab Al Hydroxide/Mg Hydroxide (Milk Of Magnesia Liq) 30 ml PO Q12H PRN PRN Reason: Mild Constipation Bisacodyl (Dulcolax Supp) 10 mg RECTAL DAILY PRN PRN Reason: SEVERE CONSITIPATION Fidaxomicin (Dificid) 200 mg PO BID [facility] Last Admin: 02/07/18 08:37 Dose: 200 mg Sodium Chloride (Ns Inj) 1,000 mls @ 0 mls/hr IV.SIG BOLUS [facility] Last Infusion: 02/06/18 17:22 Dose: Infused Sodium Chloride (Ns Inj) 1,000 mls @ 100 mls/hr IV.CONT .Q10H [facility] Last Admin: 02/07/18 05:23 Dose: 100 mls/hr Lactulose (Lactulose Liq) 30 ml PO DAILY PRN PRN Reason: SEVERE CONSITIPATION Ondansetron HCl (Zofran Inj) 4 mg IV.PUSH Q6H PRN PRN Reason: NAUSEA OR VOMITING Senna/Docusate Sodium (Liz-Colace) 1 tab PO BID [facility] Last Admin: 02/06/18 20:40 Dose: Not Given Sennosides (Senokot) 17.2 mg PO Q12H PRN PRN Reason: Moderate Constipation Sodium Chloride (Ns Flush) 2 ml IV.FLUSH PRN PRN PRN Reason: FLUSH AFTER USING IV ACCESS Allergies Allergy/AdvReac Type Severity Reaction Status Date / Time codeine Allergy Severe RASH Verified 02/06/18 14:49 ibuprofen Allergy Severe Swelling Verified 02/06/18 14:49 levofloxacin Allergy Severe ACHILLES Verified 02/06/18 14:49 TENDON PROBLEM metronidazole Allergy Severe Nausea/Vomi Verified 02/06/18 14:49 ting Home Medications Medication Instructions Recorded Confirmed Type alprazolam 0.5 mg PO QAM AND QHS 10/29/17 02/06/18 History lisinopril 20 mg PO DAILY 12/28/17 02/06/18 History Exam Vital signs: Vital Signs 02/06/18 14:47 02/06/18 17:22 02/06/18 18:30 Temperature 98.4 F 96.9 F L Pulse Rate 130 H 99 H 101 H Respiratory Rate 16 16 20 Blood Pressure 112/83 164/90 H 139/89 Pulse Oximetry 99 98 100 02/06/18 20:00 02/06/18 21:27 02/07/18 00:00 Temperature 98.0 F 97.6 F Pulse Rate 76 99 H 74 Respiratory Rate 16 24 Blood Pressure 145/91 H 152/97 H Pulse Oximetry 95 98 02/07/18 00:05 02/07/18 01:39 02/07/18 02:00 Temperature 97.5 F L Pulse Rate 116 H 82 66 Respiratory Rate 43 H 22 19 Blood Pressure 154/90 H 150/90 H Pulse Oximetry 02/07/18 04:00 02/07/18 05:24 Temperature 98.5 F Pulse Rate 60 64 Respiratory Rate 19 17 Blood Pressure 126/80 Pulse Oximetry Intake & Output 02/06/18 02/07/18 02/07/18 18:59 06:59 18:59 Intake Total 2049 1500 / 1500 Balance 2049 1500 / 1500 Weight 63 kg 64.1 kg Intake: IV 2049 1000 / 1000 NS Inj 1,000 ML @ 100 mls/hr IV 1000 / 1000 .CONT .Q10H ÁLVARO Rx#:[id number] Zosyn 3.375 GM Premix 50 ML @ 50 / 50 100 mls/hr IV.SIG ONCE ONE Rx#: [id number] NS Inj 1,000 ML @ Wide Open IV. 1999 SIG BOLUS ÁLVARO Rx#:[id number] Oral 500 / 500 Other: # Voids 4 Date of Last Bowel Movement 02/06/18 02/06/18 02/07/18 # Bowel Movements 3 Weight On Admission 63 kg Narrative: GENERAL: Well-developed, well-nourished, in no acute distress. alert and orientated HEENT: Head is normocephalic without any lesions or masses noted. Facial features are symmetric. Eyes: Pupils equal round reactive to light. Extraocular muscles are intact. Conjunctivae were clear. Oropharyngeal: Pharynx without any erythema edema. Tongue is midline without deviation. Buccal mucosa is moist without any masses or lesions NECK: Supple without any masses. Trachea midline no deviation. No JVD, no bruits are appreciated CARDIAC: Regular rhythm, regular rate. S1/S2 are heard. No murmurs gallops or rubs. LUNGS: Clear to auscultation bilaterally. No wheeze, rhonchi or rales. No use of accessory muscles on inspiration or expiration. ABDOMEN: Soft, nontender. Nondistended. Bowel sounds heard in all 4 quadrants. No organomegaly or masses. Negative rebound, negative guarding EXTREMITIES: No edema, pulses are equal bilaterally. No cyanosis or clubbing NEUROLOGY: Mood and affect appear appropriate. Cranial nerves II through XII grossly intact. Muscle strength 5/5 in upper and lower extremities bilaterally. Deep tendon reflexes are 2+ in upper and lower extremities bilaterally. Results - Labs CBC & Chem 7: 02/07/18 05:35 02/07/18 05:35 Labs: Laboratory Results - last 24 hr 02/06/18 02/06/18 02/06/18 15:21 15:21 15:39 CBC w Diff Auto diff final WBC 15.2 H RBC 4.43 L Hgb 13.1 Hct 40.0 MCV 90.3 MCH 29.5 MCHC 32.6 RDW 16.0 Plt Count 424 MPV 8.4 Neut % (Auto) 79.1 H Lymph % (Auto) 12.5 [place] % (Auto) 5.3 Eos % (Auto) 0.1 Baso % (Auto) 3.0 H Neut # (Auto) 12.0 H Lymph # (Auto) 1.9 [place] # (Auto) 0.8 Eos # (Auto) 0.0 Baso # (Auto) 0.5 H WBC Differential . Differential Comment . Puncture Site Patient Temperature VBG pH VBG pCO2 VBG pO2 VBG HCO3 VBG O2 Saturation VBG O2 Content VBG Base Excess VBG Carboxyhemoglobin VBG Methemoglobin Hemoglobin Inspired O2 Critical Value Sodium 135 L Potassium 4.4 Chloride 103 Carbon Dioxide 14.7 L Anion Gap 17 H BUN 38 H Creatinine 2.10 H Estimated GFR 32 L Random Glucose 81 Lactic Acid Calcium 9.5 Total Bilirubin 0.5 AST 23 ALT 23 Alkaline Phosphatase 85 Total Protein 8.8 H Albumin 4.5 Lipase 344 Ur Collection Type Urine Color Urine Clarity Urine pH Ur Specific [place] Urine Protein Urine Glucose (UA) Urine Ketones Urine Occult Blood Urine Nitrate Urine Bilirubin Urine Ictotest Urine Urobilinogen Ur Leukocyte Esterase Urine RBC Urine WBC Urine WBC Clumps Ur Squamous Epith Cells Ur Transition Epith Cell Micro UA Comment Ur Microscopic Review Urine Culture Comments Stool C.difficile Ag Negative Stool C.difficile Toxin Negative Stl C.difficile DNA Amp Positive H St C. diff Tox Epid 027 Negative 02/06/18 02/06/18 02/06/18 16:10 16:28 19:50 CBC w Diff WBC RBC Hgb Hct MCV MCH MCHC RDW Plt Count MPV Neut % (Auto) Lymph % (Auto) [place] % (Auto) Eos % (Auto) Baso % (Auto) Neut # (Auto) Lymph # (Auto) [place] # (Auto) Eos # (Auto) Baso # (Auto) WBC Differential Differential Comment Puncture Site L ac Patient Temperature 98.6 VBG pH 7.28 L* VBG pCO2 35 L VBG pO2 42 H VBG HCO3 16 L VBG O2 Saturation 63 L VBG O2 Content 10.0 VBG Base Excess -9.7 L VBG Carboxyhemoglobin 1.0 VBG Methemoglobin 1.5 Hemoglobin 11.3 L Inspired O2 21 Critical Value Yes Sodium Potassium Chloride Carbon Dioxide Anion Gap BUN Creatinine Estimated GFR Random Glucose Lactic Acid 1.6 Calcium Total Bilirubin AST ALT Alkaline Phosphatase Total Protein Albumin Lipase Ur Collection Type Clean catch Urine Color Yellow Urine Clarity Clear Urine pH 5.5 Ur Specific [place] Greater/equal 1.030 Urine Protein Trace Urine Glucose (UA) Negative Urine Ketones Trace H Urine Occult Blood Negative Urine Nitrate Negative Urine Bilirubin Negative Urine Ictotest Negative Urine Urobilinogen 0.2 Ur Leukocyte Esterase Small H Urine RBC 0-3 Urine WBC 9-20 H Urine WBC Clumps Few H Ur Squamous Epith Cells 0-5 Ur Transition Epith Cell 1-5 H Micro UA Comment Culture indicated Ur Microscopic Review Microscopic reviewed Urine Culture Comments Culture indicated Stool C.difficile Ag Stool C.difficile Toxin Stl C.difficile DNA Amp St C. diff Tox Epid 027 02/07/18 02/07/18 05:35 05:35 CBC w Diff Auto diff final WBC 7.8 RBC 3.23 L Hgb 9.6 L D Hct 29.4 L MCV 90.8 MCH 29.7 MCHC 32.7 RDW 16.0 Plt Count 322 MPV 8.2 Neut % (Auto) 68.1 Lymph % (Auto) 19.9 [place] % (Auto) 10.4 H Eos % (Auto) 1.1 Baso % (Auto) 0.5 Neut # (Auto) 5.3 Lymph # (Auto) 1.6 [place] # (Auto) 0.8 Eos # (Auto) 0.1 Baso # (Auto) 0.0 WBC Differential . Differential Comment . Puncture Site Patient Temperature VBG pH VBG pCO2 VBG pO2 VBG HCO3 VBG O2 Saturation VBG O2 Content VBG Base Excess VBG Carboxyhemoglobin VBG Methemoglobin Hemoglobin Inspired O2 Critical Value Sodium 138 Potassium 4.1 Chloride 110 H Carbon Dioxide 17.7 L Anion Gap 10 BUN 34 H Creatinine 1.50 H Estimated GFR 47 L Random Glucose 79 Lactic Acid Calcium 7.8 L D Total Bilirubin 0.5 AST 15 ALT 16 Alkaline Phosphatase 59 Total Protein 6.2 L D Albumin 3.2 L D Lipase Ur Collection Type Urine Color Urine Clarity Urine pH Ur Specific [place] Urine Protein Urine Glucose (UA) Urine Ketones Urine Occult Blood Urine Nitrate Urine Bilirubin Urine Ictotest Urine Urobilinogen Ur Leukocyte Esterase Urine RBC Urine WBC Urine WBC Clumps Ur Squamous Epith Cells Ur Transition Epith Cell Micro UA Comment Ur Microscopic Review Urine Culture Comments Stool C.difficile Ag Stool C.difficile Toxin Stl C.difficile DNA Amp St C. diff Tox Epid 027 - Imaging Impressions Abdomen/Pelvis CT 02/06/18 15:01 CONCLUSION: 1. Probable early colitis extending into transverse colon new from the comparison study. Caprini VTE Risk Assessment Caprini VTE Risk Assessment: No/Low Risk (score <= 1) Caprini Risk Assessment Model: Point Value = 1 Point Value = 2 Point Value = 3 Point Value = 5 Age 41-60 Minor surgery BMI > 25 kg/m2 Swollen legs Varicose veins or History of unexplained or recurrent spontaneous Oral contraceptives or hormone replacement Sepsis (< 1 month) Serious lung disease, including pneumonia (< 1 month) Abnormal pulmonary function Acute myocardial infarction Congestive heart failure (< 1 month) History of inflammatory bowel disease Medical patient at bed rest Age 61-74 Arthroscopic surgery Major open surgery (> 45 min) Laparoscopic surgery (> 45 min) Malignancy Confined to bed (> 72 hours) Immobilizing plaster cast Central venous access Age >= 75 History of VTE Family history of VTE Factor V Leiden Prothrombin [id number] Lupus anticoagulant Anticardiolipin antibodies Elevated serum homocysteine Heparin-induced thrombocytopenia Other congenital or acquired thrombophilia Stroke (< 1 month) Elective arthroplasty Hip, pelvis, or leg fracture Acute spinal cord injury (< 1 month) Prophylaxis Regimen: Total Risk Factor Score Risk Level Prophylaxis Regimen 0-1 Low Early ambulation 2 Moderate Order ONE of the following: *Sequential Compression Device (SCD) *Heparin 5000 units SQ BID 3-4 Higher Order ONE of the following medications: *Heparin 5000 units SQ TID *Enoxaparin/Lovenox 40 mg SQ daily (WT < 150 kg, CrCl > 30 mL/min) *Enoxaparin/Lovenox 30 mg SQ daily (WT < 150 kg, CrCl > 10-29 mL/min) *Enoxaparin/Lovenox 30 mg SQ BID (WT < 150 kg, CrCl > 30 mL/min) AND/OR *Sequential Compression Device (SCD) 5 or more Highest Order ONE of the following medications: *Heparin 5000 units SQ TID (Preferred with Epidurals) *Enoxaparin/Lovenox 40 mg SQ daily (WT < 150 kg, CrCl > 30 mL/min) *Enoxaparin/Lovenox 30 mg SQ daily (WT < 150 kg, CrCl > 10-29 mL/min) *Enoxaparin/Lovenox 30 mg SQ BID (WT < 150 kg, CrCl > 30 mL/min) AND *Sequential Compression Device (SCD) Assessment and Plan - Assessment (1) Diarrhea Code(s): R19.7 - Diarrhea, unspecified Status: Acute (2) Acute renal failure (ARF) Code(s): N17.9 - Acute kidney failure, unspecified Status: Acute - Plan Systemic inflammatory response syndrome -Patient met criteria on admission with leukocytosis, tachycardia. No signs of acute infection. Likely secondary to acute dehydration and renal failure -Leukocytosis has resolved -Patient was given single dose of Zosyn and empirically started on Dificid, will discontinue antibiotic at this time -CT of the abdomen did indicate possible early colitis extending into transverse colon Gastroenteritis, resolved -Patient presented with-diarrheal illness, signs of dehydration, patient does have history of recurrent Clostridium difficile infection -Clostridium difficile infection was negative -Cryptosporidium, Giardia testing was negative, stool for WBCs showed few WBCs Acute renal failure superimposed on chronic kidney disease stage III -Secondary to dehydration, diarrhea -Continue IV fluids -Monitor renal function -Avoid nephrotoxins DVT prevention -Sequential compression devices Discharge Planning: Discharge home in stable condition Activity: Ad jazmin. Diet: Regular diet Medication per medication reconciliation Follow-up with primary medical doctor in 1 week (1) Diarrhea Qualifiers:
[2018-02-07 13:51] VITALS: BP 158/89; PULSE 84; RESP 39
[2018-02-07] MEDS: Senna/Docusate Sodium 8.6/50 MG Tablet PO SCH (13:55)
[2018-02-07] MEDS ORDERED: Influenza (Quadrivalent) Vaccine 0.5 ML Syringe IM ONE (15:00)
== END 2018-02-07 15:10 | disposition home or self-care (01) ==
LOC: PHED 14:38 → PHEDA 14:38 → OBSVTOIN 17:07 → PH3 17:48 → PHICU 21:38
PROVIDERS: ADMIT Hospitalist; ATTEND Hospitalist